=== PATIENT | female | born 1955 | race Caucasian/White ===

== ENCOUNTER 2017-07-14 20:30 | Inpatient (IN) | payer OTHER ==
[~2017-07-14] VITALS: Ht 162.6 cm; Wt 85.0 kg
[2017-07-14 21:30] VITALS: BP 132/70; PULSE 54; RESP 20; TEMP 98.4; O2SAT 91
[2017-07-14] MEDS ORDERED: NALOXONE HCL 0.4 MG/ML AMP IV PUSH PRN (22:15)
[2017-07-14] MEDS ORDERED: ACETAMINOPHEN 325 MG TAB PO PRN (22:15)
[2017-07-14] MEDS ORDERED: BISACODYL 10 MG SUPP RECTAL PRN (22:15)
[2017-07-14] MEDS ORDERED: SODIUM CHLORIDE 0.9% FLUSH 10 ML FLUSH IV FLUSH PRN (22:15)
[2017-07-14] MEDS ORDERED: ONDANSETRON HCL 4 MG/2 ML VIAL IVP PRN (22:15)
[2017-07-14] MEDS ORDERED: LACTULOSE SYRUP 20 GM/30 ML CUP PO PRN (22:15)
--- NOTE | 2017-07-14 23:39 | HHI.HP ---
HPI Service [facility] Hospitalists Primary Care Physician Unknown Admission Diagnosis newly discovered brain mass vs subacute hemorrhage . Diagnoses: Chief Complaint: confusion, right sided weakness, and slurred speech Travel History International Travel<30 Days: No Contact w/Intl Traveler <30 Da: No History of Present Illness Ms. Sun is a 61-year-old female who is brought to the emergency room at [facility] in [place] for increasing confusion, slurred speech, and right-sided weakness for four days. CT of the head was performed and showed a brain mass with midline shift of 6.8 mm with differential including subacute hemorrhage versus neoplastic process. The patient was accepted in transfer by Dr. Todd for neurosurgical evaluation here at [facility] in [place]. The patient is remains slightly confused at the time of my visit and states that she does not know why she is here at the hospital. She indicates that she' s been feeling fine and has no problems. She denies any fever, chills, nausea, vomiting, or cough. She indicates that she would prefer for her daughter to provide [place] interpretation for her in lieu of a professional interpretation service. Review of Systems Except as stated in HPI: all other systems reviewed are Neg Past Family Social History Past Medical History Hypothyroidism CVA with possible seizure activity at the time of the CVA - no seizures since and does not take AEDs Hypertension Osteoporosis Asthma Obstructive sleep apnea Bipolar disorder Non-Hodgkin's lymphoma GERD Hyperlipidemia Nephrolithiasis Thyroid nodules . Past Surgical History Cholecystectomy Temporary stent in kidney placed 04/2015, removed 12/2016 - due to obstructive lymphadenopathy Biopsy of pancreas, and liver . Reported Medications Reported Meds & Active Scripts Active Reported Proair Hfa 8.5 GM Inh (Albuterol Sulfate) 90 Mcg/Act Aer 2 Puff INH Q4-6H PRN 108 mcg/actuation Proair Hfa (Albuterol Sulfate) 90 Mcg Hfa.aer.ad Omeprazole 20 Mg Tab 20 Mg PO DAILY Quetiapine (Quetiapine Fumarate) 25 Mg Tab 25 Mg PO HS Centrum (Multiple Vitamins W/ Minerals) 1 Chew 1 Tab CHEW DAILY Levothyroxine (Levothyroxine Sodium) 150 Mcg Tab 150 Mcg PO DAILY Folic Acid 0.4 Mg Tab 1 Mg PO HS Ferrous Sulfate ER (Ferrous Sulfate) 140 Mg (45 Mg Iron) Tab 65 Mg PO DAILY Celexa (Citalopram Hydrobromide) 20 Mg Tab 20 Mg PO DAILY Atorvastatin (Atorvastatin Calcium) 40 Mg Tab 40 Mg PO HS Allopurinol 100 Mg Tab 100 Mg PO BID Acyclovir 400 Mg Tab 400 Mg PO THURSDAY, , THURSDAY Tylenol (Acetaminophen) 325 Mg Tab 500 Mg PO Q4H . Allergies: Uncoded Allergies: cotton (Allergy, Mild, Itching, 07/14/17) Family History Mother with Parkinson's and kidney failure Father with COPD Additional family history includes: hypertension, lung disease, hyperlipidemia, arthritis, and thyroid disease . Social History Tobacco: Smoked from 1966 - 1999 PPD Alcohol: Occasional social use, none in past 2 months Illicit Drugs: none . Physical Exam Vital Signs Vital Signs Date Time Temp Pulse Resp B/P (MAP) Pulse Ox O2 Delivery O2 Flow Rate FiO2 07/14/17 21:30 98.4 54 20 132/70 (90) 91 Physical Exam CONSTITUTIONAL: This is an overweight older female patient, in no apparent distress. INTEGUMENTARY: No rashes, ecchymoses or lesions. Cool and dry. HEAD: Atraumatic. Normocephalic. EYES: No scleral icterus. No injection or drainage. ENT: Nose without bleeding, purulent drainage. NECK: Trachea midline. No JVD or lymphadenopathy. CARDIOVASCULAR: Regular rate and rhythm without murmurs, gallops, or rubs. RESPIRATORY: Clear to auscultation. Breath sounds equal bilaterally. No wheezes , rales, or rhonchi. GASTROINTESTINAL: Abdomen soft, non-tender, nondistended. No guarding. MUSCULOSKELETAL: Extremities without clubbing, cyanosis, or edema. No calf tenderness. NEUROLOGICAL: Awake and alert. Sensory grossly within normal limits. Normal speech. Minimal right oral droop. Mild confusion noted. Strength 5/5 in all extremities. . Laboratory WBC 7.2, RBC 3.91, hemoglobin 12.3, hematocrit 37.0, platelet count 287. Sodium 143, potassium 4.0, chloride 103, BUN 22, creatinine 0.84, estimated GFR 73.97. Glucose 104, calcium 10.0, AST 14, ALT 12, alkaline phosphatase [address] brain without contrast: Moderately increased attenuation with expansion of the left basal ganglia causing mass-effect and midline shift of 6.8 mm. Subacute hemorrhage versus neoplastic process. . Caprini VTE Risk Assessment Caprini VTE Risk Assessment: Mod/High Risk (score >= 2) Caprini Risk Assessment Model Point Value = 1 Point Value = 2 Point Value = 3 Point Value = 5 Age 41-60 Minor surgery BMI > 25 kg/m2 Swollen legs Varicose veins or History of unexplained or recurrent spontaneous Oral contraceptives or hormone replacement Sepsis (< 1 month) Serious lung disease, including pneumonia (< 1 month) Abnormal pulmonary function Acute myocardial infarction Congestive heart failure (< 1 month) History of inflammatory bowel disease Medical patient at bed rest Age 61-74 Arthroscopic surgery Major open surgery (> 45 min) Laparoscopic surgery (> 45 min) Malignancy Confined to bed (> 72 hours) Immobilizing plaster cast Central venous access Age >= 75 History of VTE Family history of VTE Factor V Leiden Prothrombin [id number] Lupus anticoagulant Anticardiolipin antibodies Elevated serum homocysteine Heparin-induced thrombocytopenia Other congenital or acquired thrombophilia Stroke (< 1 month) Elective arthroplasty Hip, pelvis, or leg fracture Acute spinal cord injury (< 1 month) Prophylaxis Regimen Total Risk Factor Score Risk Level Prophylaxis Regimen 0-1 Low Early ambulation 2 Moderate Order ONE of the following: *Sequential Compression Device (SCD) *Heparin 5000 units SQ BID 3-4 Higher Order ONE of the following medications: *Heparin 5000 units SQ TID *Enoxaparin/Lovenox 40 mg SQ daily (WT < 150 kg, CrCl > 30 mL/min) *Enoxaparin/Lovenox 30 mg SQ daily (WT < 150 kg, CrCl > 10-29 mL/min) *Enoxaparin/Lovenox 30 mg SQ BID (WT < 150 kg, CrCl > 30 mL/min) AND/OR *Sequential Compression Device (SCD) 5 or more Highest Order ONE of the following medications: *Heparin 5000 units SQ TID (Preferred with Epidurals) *Enoxaparin/Lovenox 40 mg SQ daily (WT < 150 kg, CrCl > 30 mL/min) *Enoxaparin/Lovenox 30 mg SQ daily (WT < 150 kg, CrCl > 10-29 mL/min) *Enoxaparin/Lovenox 30 mg SQ BID (WT < 150 kg, CrCl > 30 mL/min) AND *Sequential Compression Device (SCD) Assessment and Plan Assessment and Plan Ms. Sun is a 61-year-old female who is brought to the emergency room at [facility] in [place] for increasing confusion, slurred speech, and right-sided weakness. CT of the head was performed and showed a brain mass with midline shift of 6.8 mm with differential including subacute hemorrhage versus neoplastic process. The patient was accepted in transfer by Dr. Todd for neurosurgical evaluation here at [facility] in [place]. Suspected brain mass vs subacute hemorrhage - consult neurosurgery - seizure precautions - Neurochecks q4h - Dexamethasone 4 mg IV q6h - NPO Isolated seizure following CVA in - not on antiepileptic medications - Seizure precautions - Ativan IV PRN seizure activity Asthma - Albuterol nebulizer q4h PRN SOB/Wheezing Hypothyroidism/Gout/Bipolar Disorder/GERD - Resume home medications and monitor DVT prophylaxis - SCDs/TEDs Discussed Condition With Dr. Russell . Physician Certification 2 Midnight Certification Type: Admission for Inpatient Services Order for Inpatient Services The services are ordered in accordance with Medicare regulations or non- Medicare payer requirements, as applicable. In the case of services not specified as inpatient-only, they are appropriately provided as inpatient services in accordance with the 2-midnight benchmark. Estimated LOS (days): 5 days is the estimated time the patient will need to remain in the hospital, assuming treatment plan goals are met and no additional complications. Post-Hospital Plan: Not yet determined Enedina Powell Jul 14, 2017 23:39
[2017-07-14] MEDS: RESP: ALBUTEROL 2.5 MG/3 ML NEB (PRN) NEB (23:41)
[2017-07-14] MEDS ORDERED: ACYC400T PO (23:51)
[2017-07-14] MEDS ORDERED: TYLE325T PO (23:51)
[2017-07-14] MEDS ORDERED: ALLO100T PO (23:52)
[2017-07-14] MEDS ORDERED: CELE20TA PO (23:53)
[2017-07-14] MEDS ORDERED: ATOR40TA16 PO (23:53)
[2017-07-14] MEDS ORDERED: FERR140T PO (23:54)
[2017-07-14] MEDS ORDERED: LEVO150T7 PO (23:56)
[2017-07-14] MEDS ORDERED: FOLI400T PO (23:56)
[2017-07-14] MEDS ORDERED: QUET1TAB7 PO (23:59)
[2017-07-14] MEDS ORDERED: CENTCHW4 CHEW (23:59)
[2017-07-15] VITALS (7 sets, daily range): BP systolic 106–129; BP diastolic 60–69; PULSE 55–77; RESP 20; TEMP 97.3–98.2; O2SAT 92–95
[2017-07-15] MEDS ORDERED: OMEP20TA93 PO
[2017-07-15] MEDS ORDERED: ALBUAER3 (00:01)
[2017-07-15] MEDS: DEXAMETHASONE SOD PHOS 4 MG/ML VIAL IV PUSH SCH ×4 (01:25→17:04)
[2017-07-15] MEDS ORDERED: ALBUAER3 INH (01:28)
[2017-07-15] MEDS ORDERED: LORazepam 2 MG/ML VIAL IV PUSH PRN (01:45)
[2017-07-15] MEDS: LEVOTHYROXINE SODIUM 150 MCG TAB PO SCH (05:41)
[2017-07-15 07:33] LABS: AUTOMATED NEUTROPHIL # 4.9 TH/MM3 (1.8-7.7); BASOPHIL % 0.3 % (0.0-2.0); HEMATOCRIT 37.9 % (35.0-46.0); HEMOGLOBIN 12.6 GM/DL (11.6-15.3); MEAN CELL VOLUME 92.9 FL (80.0-100.0); MEAN CORPUSCULAR HGB CONC 33.4 % (32.0-36.0); MEAN PLATELET VOLUME 7.7 FL (7.0-11.0); MONO % 1.7 % (0.0-8.0); MONOCYTE # 0.1 TH/MM3 (0-0.9); PLATELET COUNT 310 TH/MM3 (150-450); RED BLOOD COUNT 4.08 MIL/MM3 (4.00-5.30); RED CELL DISTRIBUTION WIDTH 13.4 % (11.6-17.2)
[2017-07-15] MEDS: SODIUM CHLORIDE 0.9% FLUSH 10 ML FLUSH IV FLUSH SCH ×2 (07:45→21:07)
[2017-07-15 07:54] LABS: ALBUMIN 3.9 GM/DL (3.4-5.0); ALT (GPT) 22 U/L (10-53); AST (GOT) 15 U/L (15-37); BICARBONATE 24.8 MEQ/L (21.0-32.0); BLOOD UREA NITROGEN 17 MG/DL (7-18); CALCIUM 9.8 MG/DL (8.5-10.1); CHLORIDE 110 MEQ/L (98-107); CREATININE 0.74 MG/DL (0.50-1.00); GLOMERULAR FILTRATION RATE 79 ML/MIN (>89); GLUCOSE,RANDOM 121 MG/DL (74-106); SODIUM (NA) 143 MEQ/L (136-145)
[2017-07-15 08:02] LABS: ALKALINE PHOSPHATASE 77 U/L (45-117); TOTAL BILIRUBIN ADULT 0.4 MG/DL (0.2-1.0); TOTAL PROTEIN 8.2 GM/DL (6.4-8.2)
[2017-07-15] MEDS: DOCUSATE SODIUM 50 MG/SENNA 8.6 MG TAB PO SCH ×2 (08:13→21:07)
[2017-07-15] MEDS: ALLOPURINOL 100 MG TAB PO SCH ×2 (08:13→21:06)
[2017-07-15] MEDS: CITALOPRAM HYDROBROMIDE 20 MG TAB PO SCH (08:13)
[2017-07-15] MEDS: FERROUS SULFATE 325 MG (65 MG ELEMENTAL IRON) TAB PO SCH (08:14)
[2017-07-15] MEDS: PANTOPRAZOLE SOD 20 MG DELAYED RELEASE TAB PO SCH (08:14)
--- NOTE | 2017-07-15 09:40 | PD.CONS ---
HPI Consult Requested By Primary Care Physician Unknown History of Present Illness Ms. Sun is a 61-year-old female who is brought to the emergency room at [facility] for increasing confusion, slurred speech, and right-sided weakness for four days. CT of the head showed a brain mass with midline shift of 6.8 mm with differential including subacute hemorrhage versus neoplastic process. The patient was accepted in transfer by Dr. Todd for neurosurgical evaluation. No seizure activity reported. No tonic-clonic movements. No tongue biting. No incontinence of stool or urine. She remains slightly confused and does not know why she is here at the hospital. She indicates that she's been feeling fine. She denies any fever, chills, nausea, vomiting, or cough. She moves both upper and lower extremities without any focal weakness. She denies any sensory loss. She denies any headaches nausea vomiting. Denies any incontinence or stool or urine. Neurosurgical consultation was requested Hypothyroidism CVA with possible seizure activity at the time of the CVA - no seizures since and does not take AEDs Hypertension Osteoporosis Asthma Obstructive sleep apnea Bipolar disorder Non-Hodgkin's lymphoma GERD Hyperlipidemia Nephrolithiasis Thyroid nodules . Past Surgical History Cholecystectomy Temporary stent in kidney placed 04/2015, removed 12/2016 - due to obstructive lymphadenopathy Biopsy of pancreas, and liver . Reported Medications Reported Meds & Active Scripts Active Reported Proair Hfa 8.5 GM Inh (Albuterol Sulfate) 90 Mcg/Act Aer 2 Puff INH Q4-6H PRN 108 mcg/actuation Proair Hfa (Albuterol Sulfate) 90 Mcg Hfa.aer.ad Omeprazole 20 Mg Tab 20 Mg PO DAILY Quetiapine (Quetiapine Fumarate) 25 Mg Tab 25 Mg PO HS Centrum (Multiple Vitamins W/ Minerals) 1 Chew 1 Tab CHEW DAILY Levothyroxine (Levothyroxine Sodium) 150 Mcg Tab 150 Mcg PO DAILY Folic Acid 0.4 Mg Tab 1 Mg PO HS Ferrous Sulfate ER (Ferrous Sulfate) 140 Mg (45 Mg Iron) Tab 65 Mg PO DAILY Celexa (Citalopram Hydrobromide) 20 Mg Tab 20 Mg PO DAILY Atorvastatin (Atorvastatin Calcium) 40 Mg Tab 40 Mg PO HS Allopurinol 100 Mg Tab 100 Mg PO BID Acyclovir 400 Mg Tab 400 Mg PO THURSDAY, , THURSDAY Tylenol (Acetaminophen) 325 Mg Tab 500 Mg PO Q4H . Allergies: Uncoded Allergies: cotton (Allergy, Mild, Itching, 07/14/17) Family History Mother with Parkinson's and kidney failure Father with COPD Additional family history includes: hypertension, lung disease, hyperlipidemia, arthritis, and thyroid disease . Social History Tobacco: Smoked from 1966 - 1999 PPD Alcohol: Occasional social use, none in past 2 months Illicit Drugs: none . Physical Exam Vital Signs Vital Signs Date Time Temp Pulse Resp B/P (MAP) Pulse Ox O2 Delivery O2 Flow Rate FiO2 07/14/17 21:30 98.4 54 20 132/70 (90) 91 Physical Exam CONSTITUTIONAL: This is an overweight older female patient, in no apparent distress. INTEGUMENTARY: No rashes, ecchymoses or lesions. Cool and dry. HEAD: Atraumatic. Normocephalic. EYES: No scleral icterus. No injection or drainage. ENT: Nose without bleeding, purulent drainage. NECK: Trachea midline. No JVD or lymphadenopathy. CARDIOVASCULAR: Regular rate and rhythm without murmurs, gallops, or rubs. RESPIRATORY: Clear to auscultation. Breath sounds equal bilaterally. No wheezes , rales, or rhonchi. GASTROINTESTINAL: Abdomen soft, non-tender, nondistended. No guarding. MUSCULOSKELETAL: Extremities without clubbing, cyanosis, or edema. No calf tenderness. NEUROLOGICAL: Awake and alert. Sensory grossly within normal limits. Normal speech. Minimal right oral droop. Mild confusion noted. Strength 5/5 in all extremities. . Laboratory WBC 7.2, RBC 3.91, hemoglobin 12.3, hematocrit 37.0, platelet count 287. Sodium 143, potassium 4.0, chloride 103, BUN 22, creatinine 0.84, estimated GFR 73.97. Glucose 104, calcium 10.0, AST 14, ALT 12, alkaline phosphatase [address] brain without contrast: Moderately increased attenuation with expansion of the left basal ganglia causing mass-effect and midline shift of 6.8 mm. Subacute hemorrhage versus neoplastic process. . Caprini VTE Risk Assessment Caprini VTE Risk Assessment: Mod/High Risk (score >= 2) Caprini Risk Assessment Model Point Value = 1 Point Value = 2 Point Value = 3 Point Value = 5 Age 41-60 Minor surgery BMI > 25 kg/m2 Swollen legs Varicose veins or History of unexplained or recurrent spontaneous Oral contraceptives or hormone replacement Sepsis (< 1 month) Serious lung disease, including pneumonia (< 1 month) Abnormal pulmonary function Acute myocardial infarction Congestive heart failure (< 1 month) History of inflammatory bowel disease Medical patient at bed rest Age 61-74 Arthroscopic surgery Major open surgery (> 45 min) Laparoscopic surgery (> 45 min) Malignancy Confined to bed (> 72 hours) Immobilizing plaster cast Central venous access Age >= 75 History of VTE Family history of VTE Factor V Leiden Prothrombin [id number] Lupus anticoagulant Anticardiolipin antibodies Elevated serum homocysteine Heparin-induced thrombocytopenia Other congenital or acquired thrombophilia Stroke (< 1 month) Elective arthroplasty Hip, pelvis, or leg fracture Acute spinal cord injury (< 1 month) Prophylaxis Regimen Total Risk Factor Score Risk Level Prophylaxis Regimen 0-1 Low Early ambulation 2 Moderate Order ONE of the following: *Sequential Compression Device (SCD) *Heparin 5000 units SQ BID 3-4 Higher Order ONE of the following medications: *Heparin 5000 units SQ TID *Enoxaparin/Lovenox 40 mg SQ daily (WT < 150 kg, CrCl > 30 mL/min) *Enoxaparin/Lovenox 30 mg SQ daily (WT < 150 kg, CrCl > 10-29 mL/min) *Enoxaparin/Lovenox 30 mg SQ BID (WT < 150 kg, CrCl > 30 mL/min) AND/OR *Sequential Compression Device (SCD) 5 or more Highest Order ONE of the following medications: *Heparin 5000 units SQ TID (Preferred with Epidurals) *Enoxaparin/Lovenox 40 mg SQ daily (WT < 150 kg, CrCl > 30 mL/min) *Enoxaparin/Lovenox 30 mg SQ daily (WT < 150 kg, CrCl > 10-29 mL/min) *Enoxaparin/Lovenox 30 mg SQ BID (WT < 150 kg, CrCl > 30 mL/min) AND *Sequential Compression Device (SCD) Assessment and Plan Assessment and Plan Ms. Sun is a 61-year-old female who is brought to the emergency room at [facility] in [place] for increasing confusion, slurred speech, and right-sided weakness. CT of the head was performed and showed a brain mass with midline shift of 6.8 mm with differential including subacute hemorrhage versus neoplastic process. The patient was accepted in transfer by Dr. Todd for neurosurgical evaluation here at [facility] in [place]. Suspected brain mass vs subacute hemorrhage - consult neurosurgery - seizure precautions - Neurochecks q4h - Dexamethasone 4 mg IV q6h - NPO Isolated seizure following CVA in - not on antiepileptic medications - Seizure precautions - Ativan IV PRN seizure activity Asthma - Albuterol nebulizer q4h PRN SOB/Wheezing Hypothyroidism/Gout/Bipolar Disorder/GERD - Resume home medications and monitor Past Family Social History Allergies: Uncoded Allergies: cotton (Allergy, Mild, Itching, 07/14/17) Past Medical History Ms. Snu is a 61-year-old female who is brought to the emergency room at [facility] in [place] for increasing confusion, slurred speech, and right-sided weakness for four days. CT of the head was performed and showed a brain mass with midline shift of 6.8 mm with differential including subacute hemorrhage versus neoplastic process. The patient was accepted in transfer by Dr. Todd for neurosurgical evaluation here at [facility] in [place]. The patient is remains slightly confused at the time of my visit and states that she does not know why she is here at the hospital. She indicates that she' s been feeling fine and has no problems. She denies any fever, chills, nausea, vomiting, or cough. She indicates that she would prefer for her daughter to provide [place] interpretation for her in lieu of a professional interpretation service. Hypothyroidism CVA with possible seizure activity at the time of the CVA - no seizures since and does not take AEDs Hypertension Osteoporosis Asthma Obstructive sleep apnea Bipolar disorder Non-Hodgkin's lymphoma GERD Hyperlipidemia Nephrolithiasis Thyroid nodules . Past Surgical History Cholecystectomy Temporary stent in kidney placed 04/2015, removed 12/2016 - due to obstructive lymphadenopathy Biopsy of pancreas, and liver . Reported Medications Proair Hfa 8.5 GM Inh (Albuterol Sulfate) 90 Mcg/Act Aer 2 Puff INH Q4-6H PRN 108 mcg/actuation Proair Hfa (Albuterol Sulfate) 90 Mcg Hfa.aer.ad Omeprazole 20 Mg Tab 20 Mg PO DAILY Quetiapine (Quetiapine Fumarate) 25 Mg Tab 25 Mg PO HS Centrum (Multiple Vitamins W/ Minerals) 1 Chew 1 Tab CHEW DAILY Levothyroxine (Levothyroxine Sodium) 150 Mcg Tab 150 Mcg PO DAILY Folic Acid 0.4 Mg Tab 1 Mg PO HS Ferrous Sulfate ER (Ferrous Sulfate) 140 Mg (45 Mg Iron) Tab 65 Mg PO DAILY Celexa (Citalopram Hydrobromide) 20 Mg Tab 20 Mg PO DAILY Atorvastatin (Atorvastatin Calcium) 40 Mg Tab 40 Mg PO HS Allopurinol 100 Mg Tab 100 Mg PO BID Acyclovir 400 Mg Tab 400 Mg PO THURSDAY, , THURSDAY Tylenol (Acetaminophen) 325 Mg Tab 500 Mg PO Q4H . Active Ordered Medications Current Medications Sodium Chloride (NS Flush) 2 ml UNSCH PRN IV FLUSH FLUSH AFTER USING IV ACCESS ; Start 07/14/17 at 22:15 Sodium Chloride (NS Flush) 2 ml BID IV FLUSH Last administered on 07/15/17at 07: 45; Start 07/15/17 at 09:00 Acetaminophen (Tylenol) 650 mg Q4H PRN PO TEMP > 100.4/pain; Start 07/14/17 at 22:15 Ondansetron HCl (Zofran Inj) 4 mg Q6H PRN IVP NAUSEA OR VOMITING; Start at 22:15 Naloxone HCl (Narcan Inj) 0.4 mg UNSCH PRN IV PUSH SEE LABEL COMMENTS; Start at 22:15 Senna/Docusate Sodium (Maddy-Colace) 1 tab BID PO Last administered on at 08:13; Start 07/15/17 at 09:00 Magnesium Hydroxide (Milk Of Magnesia Liq) 30 ml Q12H PRN PO Mild constipation ; Start 07/14/17 at 22:15 Sennosides (Senokot) 17.2 mg Q12H PRN PO Moderate constipation; Start 07/14/17 at 22:15 Bisacodyl (Dulcolax Supp) 10 mg DAILY PRN RECTAL SEVERE CONSITIPATION/ IF NPO ; Start 07/14/17 at 22:15 Lactulose (Lactulose Liq) 30 ml DAILY PRN PO SEVERE CONSITIPATION/ IF PO; Start 07/14/17 at 22:15 Albuterol Sulfate (Albuterol Neb) 2.5 mg Q4HR NEB PRN NEB sob/wheezing Last administered on 07/14/17at 23:41; Start 07/14/17 at 22:30 Dexamethasone Sodium Phosphate (Decadron Inj) 4 mg Q6HR IV PUSH Last administered on 07/15/17at 05:41; Start 07/15/17 at 00:45 Allopurinol (Zyloprim) 100 mg BID PO Last administered on 07/15/17at 08:13; Start 07/15/17 at 09:00 Atorvastatin Calcium (Lipitor) 40 mg HS PO ; Start 07/15/17 at 21:00 Citalopram Hydrobromide (CeleXA) 20 mg DAILY PO Last administered on 07/15/17at 08:13; Start 07/15/17 at 09:00 Levothyroxine Sodium (Synthroid) 150 mcg DAILY@0700 PO Last administered on at 05:41; Start 07/15/17 at 07:00 Quetiapine Fumarate (SEROquel) 25 mg HS PO ; Start 07/15/17 at 21:00 Ferrous Sulfate (Ferrous Sulfate) 65 mg DAILY PO Last administered on at 08:14; Start 07/15/17 at 09:00 Pantoprazole Sodium (Protonix) 20 mg DAILY PO Last administered on 07/15/17at 08 :14; Start 07/15/17 at 09:00 Lorazepam (Ativan Inj) 2 mg Q10M PRN IV PUSH SEE LABEL COMMENTS; Start at 01:45 Family History Her family history was reviewed. Mother with Parkinson's and kidney failure Father with COPD Additional family history includes: hypertension, lung disease, hyperlipidemia, arthritis, and thyroid disease . . Social History Tobacco: Smoked from 1966 - 1999 - PPD Alcohol: Occasional social use, none in past 2 months Illicit Drugs: none Physical Exam Vital Signs Vital Signs Date Time Temp Pulse Resp B/P (MAP) Pulse Ox O2 Delivery O2 Flow Rate FiO2 07/15/17 04:00 98.1 56 20 121/69 (86) 92 07/15/17 04:00 68 07/15/17 03:17 Nasal Cannula 4.00 07/15/17 00:00 98.2 77 20 129/60 (83) 93 4/17/18 21:30 98.4 54 20 132/70 (90) 91 Physical Exam CONSTITUTIONAL: This is an overweight older female patient, in no apparent distress. INTEGUMENTARY: No rashes, ecchymoses or lesions. Cool and dry. HEAD: Atraumatic. Normocephalic. EYES: No scleral icterus. No injection or drainage. ENT: Nose without bleeding, purulent drainage. NECK: Trachea midline. No JVD or lymphadenopathy. CARDIOVASCULAR: Regular rate and rhythm without murmurs, gallops, or rubs. RESPIRATORY: Clear to auscultation. Breath sounds equal bilaterally. No wheezes , rales, or rhonchi. GASTROINTESTINAL: Abdomen soft, non-tender, nondistended. No guarding. MUSCULOSKELETAL: Extremities without clubbing, cyanosis, or edema. No calf tenderness. NEUROLOGICAL: She is alert, awake and oriented to time, place and person. Speech is fluent. Cranial nerve examination: pupils to be equal, round and reactive to light. Extra-ocular movements are intact. Facial motor and sensory function are normal and symmetrical. Gross hearing appears intact. Sternocleidomastoid and trapezius muscles are symmetrical. Other cranial nerves are intact. Neck is soft and supple with a good range of motion without pain. Muscle strength is normal in all muscle groups of left upper and lower extremities with right hemiparesis, 4/5. Sensory examination is intact to light touch and pin prick in both the upper and lower extremities. Deep tendon reflexes are symmetrical in both upper and lower extremities. There is a bilateral plantar flexion response. Cerebellar examination is unremarkable, without deficits. Laboratory Laboratory Tests Test 07/15/17 05:20 White Blood Count 6.0 Red Blood Count 4.08 Hemoglobin 12.6 Hematocrit 37.9 Mean Corpuscular Volume 92.9 Mean Corpuscular Hemoglobin 31.0 Mean Corpuscular Hemoglobin Concent 33.4 Red Cell Distribution Width 13.4 Platelet Count 310 Mean Platelet Volume 7.7 Neutrophils (%) (Auto) 81.0 Lymphocytes (%) (Auto) 17.0 Monocytes (%) (Auto) 1.7 Eosinophils (%) (Auto) 0.0 Basophils (%) (Auto) 0.3 Neutrophils # (Auto) 4.9 Lymphocytes # (Auto) 1.0 Monocytes # (Auto) 0.1 Eosinophils # (Auto) 0.0 Basophils # (Auto) 0.0 CBC Comment DIFF FINAL Differential Comment Blood Urea Nitrogen 17 Creatinine 0.74 Random Glucose 121 Total Protein 8.2 Albumin 3.9 Calcium Level 9.8 Alkaline Phosphatase 77 Aspartate Amino Transf (AST/SGOT) 15 Alanine Aminotransferase (ALT/SGPT) 22 Total Bilirubin 0.4 Sodium Level 143 Potassium Level 4.0 Chloride Level 110 Carbon Dioxide Level 24.8 Anion Gap 8 Estimat Glomerular Filtration Rate 79 Result Diagram: 07/15/1751907/15/17519 Attending Statement I reviewed her radiological studies from the outside institution CT brain without contrast: Moderately increased attenuation with expansion of the left basal ganglia causing mass-effect and midline shift of 6.8 mm. Subacute hemorrhage versus neoplastic process. . Her differential including subacute hemorrhage versus neoplastic process. Recommend MRI of the brain with and without contrast as soon as possible seizure precautions Neurochecks q4h Dexamethasone 4 mg IV q6h Isolated seizure following CVA in - not on antiepileptic medications - Seizure precautions - Ativan IV PRN. Watch for seizure activity Asthma. Albuterol nebulizer q4h PRN SOB/Wheezing Hypothyroidism/Gout. Resume home medications Bipolar Disorder. Resume home medications and monitor aggressive pulmonary toilette, nasotracheal suction, and breathing treatments with nebulizers. Nutrition. NPO Renal. monitor closely urine output, BUN and creatinine Endocrine. Monitor serial Acu checks and SSI as needed in detail ID monitor for signs of infection Protonix for stress ulcer prophylaxis Elmo hose and SCD's for DVT prophylaxis. Caprini VTE Risk Assessment Caprini VTE Risk Assessment: Mod/High Risk (score >= 2) Caprini Risk Assessment Model Point Value = 1 Point Value = 2 Point Value = 3 Point Value = 5 Age 41-60 Minor surgery BMI > 25 kg/m2 Swollen legs Varicose veins or History of unexplained or recurrent spontaneous Oral contraceptives or hormone replacement Sepsis (< 1 month) Serious lung disease, including pneumonia (< 1 month) Abnormal pulmonary function Acute myocardial infarction Congestive heart failure (< 1 month) History of inflammatory bowel disease Medical patient at bed rest Age 61-74 Arthroscopic surgery Major open surgery (> 45 min) Laparoscopic surgery (> 45 min) Malignancy Confined to bed (> 72 hours) Immobilizing plaster cast Central venous access Age >= 75 History of VTE Family history of VTE Factor V Leiden Prothrombin [id number] Lupus anticoagulant Anticardiolipin antibodies Elevated serum homocysteine Heparin-induced thrombocytopenia Other congenital or acquired thrombophilia Stroke (< 1 month) Elective arthroplasty Hip, pelvis, or leg fracture Acute spinal cord injury (< 1 month) Prophylaxis Regimen Total Risk Factor Score Risk Level Prophylaxis Regimen 0-1 Low Early ambulation 2 Moderate Order ONE of the following: *Sequential Compression Device (SCD) *Heparin 5000 units SQ BID 3-4 Higher Order ONE of the following medications: *Heparin 5000 units SQ TID *Enoxaparin/Lovenox 40 mg SQ daily (WT < 150 kg, CrCl > 30 mL/min) *Enoxaparin/Lovenox 30 mg SQ daily (WT < 150 kg, CrCl > 10-29 mL/min) *Enoxaparin/Lovenox 30 mg SQ BID (WT < 150 kg, CrCl > 30 mL/min) AND/OR *Sequential Compression Device (SCD) 5 or more Highest Order ONE of the following medications: *Heparin 5000 units SQ TID (Preferred with Epidurals) *Enoxaparin/Lovenox 40 mg SQ daily (WT < 150 kg, CrCl > 30 mL/min) *Enoxaparin/Lovenox 30 mg SQ daily (WT < 150 kg, CrCl > 10-29 mL/min) *Enoxaparin/Lovenox 30 mg SQ BID (WT < 150 kg, CrCl > 30 mL/min) AND *Sequential Compression Device (SCD) Isolated seizure following CVA in - not on antiepileptic medications - Seizure precautions - Ativan IV PRN seizure activity Asthma - Albuterol nebulizer q4h PRN SOB/Wheezing Hypothyroidism/Gout/Bipolar Disorder/GERD - Resume home medications and monitor Miguel Sutton MD Jul 15, 2017 09:40
--- NOTE | 2017-07-15 15:06 | HHI.PR ---
Subjective Remarks Patient's Turkish is limited but she agreed to have her daughter translate. Daughter reports that her speech is slightly more fluent. Right sided weakness improved. Objective Vitals Vital Signs Date Time Temp Pulse Resp B/P (MAP) Pulse Ox O2 Delivery O2 Flow Rate FiO2 07/15/17 08:45 92 Nasal Cannula 2.00 07/15/17 08:16 97.4 55 20 106/65 (79) 93 07/15/17 04:00 98.1 56 20 121/69 (86) 92 07/15/17 04:00 68 07/15/17 03:17 Nasal Cannula 4.00 07/15/17 00:00 98.2 77 20 129/60 (83) 93 07/14/17 21:30 98.4 54 20 132/70 (90) 91 I/O 07/14/17 07/14/17 07/14/17 07/15/17 07/15/17 07/15/17 07:00 15:00 23:00 07:00 15:00 23:00 Intake Total 220 ml Balance 220 ml Intake Oral 220 ml # Voids 2 # Bowel Movements 0 Result Diagram: 07/15/1720 07/15/17 0520 Objective Remarks GENERAL: No acute distress. Obese female. EYES: Pupils equal and round. No scleral icterus. No injection or drainage. ENT: No nasal bleeding or discharge. Mucous membranes pink and moist. NECK: Trachea midline. No JVD. CARDIOVASCULAR: Regular rate and rhythm. RESPIRATORY: No accessory muscle use. Clear to auscultation. Breath sounds equal bilaterally. GASTROINTESTINAL: Abdomen soft, non-tender, nondistended. Hepatic and splenic margins not palpable. MUSCULOSKELETAL: Extremities without clubbing, cyanosis, or edema. No obvious deformities. NEUROLOGICAL: Awake and alert. No obvious cranial nerve deficits. Motor grossly within normal limits. Strength 4/5 on the right upper and lower extremity. Left side is 5/5 PSYCHIATRIC: Appropriate mood and affect; insight and judgment normal. A/P Assessment and Plan 61-year-old female with a history of Lymphoma who is brought to the emergency room at [facility] in [place] for increasing confusion, slurred speech, and right-sided weakness. CT of the head was performed and showed a brain mass with midline shift of 6.8 mm with differential including subacute hemorrhage versus neoplastic process. The patient was accepted in transfer by Dr. Barth for neurosurgical evaluation here at [facility] in [place]. Suspected brain mass vs subacute hemorrhage - Neurosurgery following and recommend MRI of the brain. this is pending. - seizure precautions - Neurochecks q4h - Dexamethasone 4 mg IV q6h - Slight improvement in weakness and speech since arrival. Isolated seizure following CVA in - not on antiepileptic medications - Seizure precautions - Ativan IV PRN seizure activity History of Lymphoma, stage 4 per daughter: - Patient reportedly completed chemo last year in January and follows regularly with oncologist in [place]. Asthma - Albuterol nebulizer q4h PRN SOB/Wheezing Hypothyroidism/Gout/Bipolar Disorder/GERD - Resume home medications and monitor DVT prophylaxis - SCDs/Akhil Pineda MD Jul 15, 2017 15:05
[2017-07-15] MEDS ORDERED: GADODIAMIDE PF 287 MG/ML 20 ML VIAL (for RAD MRI) IVCONTRAST ONE (15:30)
--- NOTE | 2017-07-15 16:33 | RADRPT ---
EXAM DATE/TIME: 07/15/2017 15:42 [facility] COMPARISON: No previous studies available for comparison. INDICATIONS : Mass. CONTRAST: 20 cc Omniscan (gadodiamide) IV MEDICAL HISTORY : Non Hodgkins Lymphoma- Type B SURGICAL HISTORY : Urethral Kidney Stent, Thyroid Bx, Spinal [place] Bx, [employer] Inj Port ENCOUNTER: Initial ACUITY: 1 day PAIN SCORE: 0/10 LOCATION: Brain TECHNIQUE: Multiplanar, multisequence MRI of the brain was performed both prior to and following the administrat ion of paramagnetic contrast. FINDINGS: There is an intensely enhancing minimally less than 3 cm mass in the left basal ganglia. There is mod erate surrounding vasogenic edema. There is significant compression of the lateral lateral ventricle and mild effacement of hemispheric sulci and sylvian fissure. Minimal midline shift associated. There is some serpiginous enhancement of the parafalcine right frontal cortex and subcortical tissues. The re is no evidence of macroscopic hemorrhage. There is nothing to suggest acute infarction. The extrac ranial structures are grossly benign and intact. CONCLUSION: Left basal ganglia mass with moderate associated vasogenic edema. Mild-moderate hemispheric mass effe ct. Serpiginous enhancement in the contralateral right mid to high convexity frontal region. Israel Ruelas MD on July 15, 2017 at 16:27 Board Certified Radiologist. This report was verified electronically.
[2017-07-15] MEDS: ATORVASTATIN 40 MG TAB PO SCH (21:06)
[2017-07-15] MEDS: QUEtiapine FUMARATE 25 MG TAB PO SCH (21:07)
[2017-07-16] VITALS (13 sets, daily range): BP systolic 85–164; BP diastolic 52–96; PULSE 40–56; RESP 16–20; TEMP 97.3–98; O2SAT 94–100
[2017-07-16] MEDS: LEVOTHYROXINE SODIUM 150 MCG TAB PO SCH (05:15)
[2017-07-16] MEDS: DEXAMETHASONE SOD PHOS 4 MG/ML VIAL IV PUSH SCH ×4 (05:15→18:00)
[2017-07-16] MEDS: DOCUSATE SODIUM 50 MG/SENNA 8.6 MG TAB PO SCH ×2 (09:08→20:38)
[2017-07-16] MEDS: FERROUS SULFATE 325 MG (65 MG ELEMENTAL IRON) TAB PO SCH (09:08)
[2017-07-16] MEDS: ALLOPURINOL 100 MG TAB PO SCH ×2 (09:08→21:03)
[2017-07-16] MEDS: SODIUM CHLORIDE 0.9% FLUSH 10 ML FLUSH IV FLUSH SCH (09:09)
[2017-07-16] MEDS: CITALOPRAM HYDROBROMIDE 20 MG TAB PO SCH (09:09)
[2017-07-16] MEDS: PANTOPRAZOLE SOD 20 MG DELAYED RELEASE TAB PO SCH (09:09)
[2017-07-16 09:25] LABS: HEMATOCRIT 35.2 % (35.0-46.0); HEMOGLOBIN 11.7 GM/DL (11.6-15.3); MEAN CELL VOLUME 93.8 FL (80.0-100.0); MEAN CORPUSCULAR HEMOGLOBIN 31.2 PG (27.0-34.0); MEAN CORPUSCULAR HGB CONC 33.3 % (32.0-36.0); PLATELET COUNT 316 TH/MM3 (150-450); RED BLOOD COUNT 3.76 MIL/MM3 (4.00-5.30); RED CELL DISTRIBUTION WIDTH 13.1 % (11.6-17.2); WHITE BLOOD COUNT 11.1 TH/MM3 (4.0-11.0)
[2017-07-16 09:55] LABS: BICARBONATE 26.3 MEQ/L (21.0-32.0); CALCIUM 9.6 MG/DL (8.5-10.1); CREATININE 0.79 MG/DL (0.50-1.00)
[2017-07-16] MEDS ORDERED: ETOMIDATE 40 MG/20 ML VIAL ONE (13:09)
[2017-07-16] MEDS ORDERED: ROCURONIUM INJ 50 MG/5 ML VIAL ONE (13:09)
--- NOTE | 2017-07-16 13:09 | HHI.PR ---
Subjective Remarks Earl called on the patient. She became unresponsive. On my evaluation the patient has a GCS of 1. Objective Vitals Vital Signs Date Time Temp Pulse Resp B/P (MAP) Pulse Ox O2 Delivery O2 Flow Rate FiO2 07/16/17 11:23 97.6 50 17 119/63 (81) 94 07/16/17 07:00 97.3 47 16 108/72 (84) 96 07/16/17 04:00 97.8 47 18 131/63 (85) 95 07/16/17 04:00 Nasal Cannula 4.00 07/16/17 00:00 Nasal Cannula 4.00 07/16/17 00:00 98.0 56 20 114/66 (82) 95 07/15/17 21:53 97.3 55 20 119/60 (79) 94 07/15/17 20:00 Nasal Cannula 4.00 07/15/17 16:16 97.3 60 20 110/66 (81) 95 I/O 07/15/17 07/15/17 07/15/17 07/16/17 07/16/17 07/16/17 07:00 15:00 23:00 07:00 15:00 23:00 Intake Total 220 ml 320 ml 0 ml Output Total 0 ml Balance 220 ml 320 ml 0 ml Intake Oral 220 ml 320 ml 0 ml Output Urine Total 0 ml # Voids 2 4 # Bowel Movements 0 1 0 Result Diagram: 07/16/17 0735 07/16/17 0735 Objective Remarks GENERAL:Non responsive GCS of 1 CARDIOVASCULAR: Regular rate and rhythm. RESPIRATORY: Upper airway sound. Clear anteriorly. NEUROLOGICAL: Unresponsive, GCS of 1 A/P Assessment and Plan 61-year-old female with a history of Lymphoma who is brought to the emergency room at [facility] in [place] for increasing confusion, slurred speech, and right-sided weakness. CT of the head was performed and showed a brain mass with midline shift of 6.8 mm with differential including subacute hemorrhage versus neoplastic process. The patient was accepted in transfer by Dr. Barth for neurosurgical evaluation here at [facility] in [place]. 07/16: Patient became unresponsive, GCS score 1. Stat ABG. Stat called to intensive, I discussed with Dr. Barker. The patient was immediately transferred to ICU with anticipation of needing intubation. Neurosurgery is aware. Suspected brain mass vs subacute hemorrhage - Brain MRI showed Left basal ganglia mass with moderate associated vasogenic edema. Mild-moderate hemispheric mass effect. Serpiginous enhancement in the contralateral right mid to high convexity frontal region. - seizure precautions - Neurochecks q4h - Dexamethasone 4 mg IV q6h Isolated seizure following CVA in - not on antiepileptic medications - Seizure precautions - Ativan IV PRN seizure activity History of Lymphoma, stage 4 per daughter: - Patient reportedly completed chemo last year in January and follows regularly with oncologist in [place]. Asthma - Albuterol nebulizer q4h PRN SOB/Wheezing Hypothyroidism/Gout/Bipolar Disorder/GERD - Resume home medications and monitor DVT prophylaxis - SCDs/TEDs Discharge Planning Stat transfer to ICU. Akhil Calderón MD Jul 16, 2017 13:09
[2017-07-16] MEDS ORDERED: MANNITOL INJ 100 ML ONE (13:15)
[2017-07-16] MEDS ORDERED: PROPOFOL 500 MG/50 ML INJ 50 ML ONE (13:23)
[2017-07-16] MEDS: SODIUM CHLOR 0.9% 1000 ML INJ 1,000 ML IV SCH (13:28)
[2017-07-16] MEDS ORDERED: RESP: ALBUTEROL 2.5 MG/IPRATROPIUM 0.5 MG NEB (PRN) INH (13:30)
[2017-07-16] MEDS ORDERED: NURSING INFORMATION XX SCH (13:30)
[2017-07-16] MEDS ORDERED: CHLORHEXIDINE GLUCONATE 2 % 1 PACK (2 CLOTHS) TOP PRN (13:30)
[2017-07-16] MEDS ORDERED: SODIUM CHLORIDE 0.9% FLUSH 10 ML FLUSH IV FLUSH PRN ×2 (13:30→19:30)
--- NOTE | 2017-07-16 14:13 | PD.CONS ---
HPI Service Critical Care Medicine Consult Requested By Dr. Calderón Reason for Consult Altered mental status, brain mass Primary Care Physician Unknown History of Present Illness Ms. Sun is a 61-year-old female who was brought to the emergency room at [facility] in [place] for increasing confusion, slurred speech, and right-sided weakness for four days. CT of the head was performed and showed a brain mass with midline shift of 6.8 mm with differential including subacute hemorrhage versus neoplastic process. The patient was accepted in transfer by Dr. Barth for neurosurgical evaluation here at [facility] in [place]. Patient was reportedly awake and alert till around 12:45 PM today. Subsequently around 1 PM rapid response team was called as patient became unresponsive. FS glucose 105. I reached patient's bedside immediately on being notified by Dr. Calderón regarding change in neurologic status. In view of high suspicion for intracranial hemorrhage patient was transferred emergently to the ICU and intubated and placed on mechanical ventilation for airway protection and a stat head CT was ordered. 25 g mannitol IV stat was administered prior to intubation. Dr. Sutton was informed regarding change in neurologic status as well and will be evaluating head CT to decide further intervention. Review of Systems unobtainable as patient is comatose, orally intubated on mechanical ventilation Past Family Social History Past Medical History Hypothyroidism CVA with possible seizure activity at the time of the CVA - no seizures since and does not take AEDs Hypertension Osteoporosis Asthma Obstructive sleep apnea Bipolar disorder Non-Hodgkin's lymphoma GERD Hyperlipidemia Nephrolithiasis Thyroid nodules . Past Surgical History Cholecystectomy Temporary stent in kidney placed 04/2015, removed 12/2016 - due to obstructive lymphadenopathy Biopsy of pancreas, and liver . Reported Medications Reported Meds & Active Scripts Active Reported Proair Hfa 8.5 GM Inh (Albuterol Sulfate) 90 Mcg/Act Aer 2 Puff INH Q4-6H PRN 108 mcg/actuation Proair Hfa (Albuterol Sulfate) 90 Mcg Hfa.aer.ad Omeprazole 20 Mg Tab 20 Mg PO DAILY Quetiapine (Quetiapine Fumarate) 25 Mg Tab 25 Mg PO HS Centrum (Multiple Vitamins W/ Minerals) 1 Chew 1 Tab CHEW DAILY Levothyroxine (Levothyroxine Sodium) 150 Mcg Tab 150 Mcg PO DAILY Folic Acid 0.4 Mg Tab 1 Mg PO HS Ferrous Sulfate ER (Ferrous Sulfate) 140 Mg (45 Mg Iron) Tab 65 Mg PO DAILY Celexa (Citalopram Hydrobromide) 20 Mg Tab 20 Mg PO DAILY Atorvastatin (Atorvastatin Calcium) 40 Mg Tab 40 Mg PO HS Allopurinol 100 Mg Tab 100 Mg PO BID Acyclovir 400 Mg Tab 400 Mg PO THURSDAY, , THURSDAY Tylenol (Acetaminophen) 325 Mg Tab 500 Mg PO Q4H . Allergies: Uncoded Allergies: cotton (Allergy, Mild, Itching, 07/14/17) Family History Mother with Parkinson's and kidney failure Father with COPD Additional family history includes: hypertension, lung disease, hyperlipidemia, arthritis, and thyroid disease . Social History Tobacco: Smoked from 1966 - 1999 PPD Alcohol: Occasional social use, none in past 2 months Illicit Drugs: none Physical Exam Vital Signs Vital Signs Date Time Temp Pulse Resp B/P (MAP) Pulse Ox O2 Delivery O2 Flow Rate FiO2 07/16/17 11:23 97.6 50 17 119/63 (81) 94 07/16/17 07:00 97.3 47 16 108/72 (84) 96 07/16/17 04:00 97.8 47 18 131/63 (85) 95 07/16/17 04:00 Nasal Cannula 4.00 07/16/17 00:00 Nasal Cannula 4.00 07/16/17 00:00 98.0 56 20 114/66 (82) 95 07/15/17 21:53 97.3 55 20 119/60 (79) 94 07/15/17 20:00 Nasal Cannula 4.00 07/15/17 16:16 97.3 60 20 110/66 (81) 95 Physical Exam HEENT/ Neuro: Comatose, orally intubated, no pallor, no icterus, tongue/ mucosa moist. Pupils bilaterally constricted 2 mm. Neck: No JVD Chest/Pulm: on mech vent, good air entry bilaterally, no wheezing or crackles CVS: S1-S2 regular, no murmur GI/abdomen: soft, nontender, bowel sounds sluggish Extremities: warm bilaterally, no edema Laboratory Laboratory Tests Test 07/16/17 07:35 07/16/17 12:40 07/16/17 12:44 White Blood Count 11.1 Red Blood Count 3.76 Hemoglobin 11.7 Hematocrit 35.2 Mean Corpuscular Volume 93.8 Mean Corpuscular Hemoglobin 31.2 Mean Corpuscular Hemoglobin Concent 33.3 Red Cell Distribution Width 13.1 Platelet Count 316 Mean Platelet Volume 8.0 Blood Urea Nitrogen 20 Creatinine 0.79 Random Glucose 92 Calcium Level 9.6 Sodium Level 142 Potassium Level 3.6 Chloride Level 107 Carbon Dioxide Level 26.3 Anion Gap 9 Estimat Glomerular Filtration Rate 74 Blood Gas Puncture Site LT RADIAL Blood Gas Patient Temperature 98.6 Blood Gas HCO3 27 Blood Gas Base Excess 2.4 Blood Gas Oxygen Saturation 95 Arterial Blood pH 7.40 Arterial Blood Partial Pressure CO2 45 Arterial Blood Partial Pressure O2 81 Arterial Blood Oxygen Content 16.3 Arterial Blood Carboxyhemoglobin 1.1 Arterial Blood Methemoglobin 0.9 Blood Gas Hemoglobin 12.3 Oxygen Delivery Device NASAL CANNULA Blood Gas Liter Flow 2 Result Diagram: 07/16/17 0735 07/16/17 0735 Imaging Last Impressions Brain MRI 07/15/17 0000 Signed Impressions: Service Date/Time: Saturday, July 15, 2017 15:42 - CONCLUSION: Left basal ganglia mass with moderate associated vasogenic edema. Mild-moderate hemispheric mass effect. Serpiginous enhancement in the contralateral right mid to high convexity frontal region. Israel Ruelas MD Assessment and Plan Assessment and Plan 61-year-old female with: Encephalopathy Left basal ganglia mass with vasogenic edema and midline shift Acute respiratory failure on mechanical ventilation for airway protection Hypothyroidism h/o CVA with possible seizure activity at the time of the CVA - no seizures since and does not take AEDs Hypertension Osteoporosis Asthma Obstructive sleep apnea Bipolar disorder GERD Hyperlipidemia Plan Neuro: Sedation with propofol. Stat head CT ordered and findings reviewed with Dr. Sutton. No evidence of hemorrhage. CT head looks essentially unchanged compared to MRI per radiology.. Discussed with neurosurgery Dr. Sutton who will be deciding further management. EEG to evaluate for seizures. Anticonvulsant being initiated by neurosurgery fosphenytoin loading followed by maintenance dose. Continue Decadron 4 million g IV every 6 hourly. Received mannitol 25 g IV 1 dose. Will continue mannitol every 6 hourly. Plan for biopsy of brain mass was originally scheduled for 07/17. Cardiovascular: Bradycardia noted. Remains hypertensive. We will use dopamine if needed if patient develops hypotension secondary to bradycardia. Pulmonary: Intubated for airway protection. Continue mechanical ventilation. End-tidal CO2 monitoring. Vent bundle, bronchodilators as needed. GI/liver: N.p.o. for now. OG tube placed for medications. Renal/: IV hydration, strict intake output, monitor and replete electrolytes, follow BN creatinine. ID: No indication for antibiotics at this time. Heme: Follow CBC and coags. Endocrine: SSI for glycemic control if needed. Ruled out hypoglycemia during rapid response. Prophylaxis: PPI/SCDs. No subcu heparin or Lovenox until cleared by neurosurgery. Condition critical. Discussed with Dr. Sutton from neurosurgery. Discussed with patient's family in detail regarding plan of care and they voiced understanding. Time spent on critical care excluding procedures 60 minutes. Ashwin Barker MD Jul 16, 2017 14:13
[2017-07-16] MEDS ORDERED: TERBUTALINE INJ 1 MG/ML AMP SQ PRN (14:15)
--- NOTE | 2017-07-16 14:17 | RADRPT ---
EXAM DATE/TIME: 07/16/2017 13:47 [facility] COMPARISON: MRI BRAIN W & W/O CONTRAST, July 15, 2017, 15:42. INDICATIONS : Unresponsive. Brain mass. RADIATION DOSE: 33.36 CTDIvol (mGy) MEDICAL HISTORY : Cerebrovascular disease. Hypertension. Non-Hodgkin's lymphoma SURGICAL HISTORY : None. ENCOUNTER: Initial ACUITY: 1 day PAIN SCALE: Non-responsive LOCATION: cranial TECHNIQUE: Multiple contiguous axial images were obtained of the head. Using automated exposure control and adj ustment of the mA and/or kV according to patient size, radiation dose was kept as low as reasonably a chievable to obtain optimal diagnostic quality images. DICOM format image data is available electro nically for review and comparison. FINDINGS: CEREBRUM: The ventricles are normal for age. Left basal ganglia mass is slightly hyperdense measures 2.4 x 2.3 cm. There is mass effect and adjacent vasogenic edema. Slight left right midline shift of 3 mm and s light compression upon the left lateral ventricle. No evidence of hemorrhage or acute infarction. No extra-axial fluid collections are seen. POSTERIOR FOSSA: The cerebellum and brainstem are intact. The 4th ventricle is midline. The cerebellopontine angle i s unremarkable. EXTRACRANIAL: The visualized portion of the orbits is intact. SKULL: The calvaria is intact. No evidence of skull fracture. CONCLUSION: Left basal ganglia mass with vasogenic edema, mass effect and left to right midline shift of 3 mm. Orlando Tavarez MD on July 16, 2017 at 14:09 Board Certified Radiologist. This report was verified electronically.
[2017-07-16] MEDS ORDERED: FOSPHENYTOIN INJ 1,000 MGPE in SODIUM CHLORIDE 0.9% INJ 50 ML IV ONE (14:30)
[2017-07-16] MEDS ORDERED: DOPamine 800 MG/500 ML INJ 500 ML IV PRN (14:30)
[2017-07-16] MEDS: PROPOFOL 1000 MG/100 ML INJ 100 ML IV PRN ×2 (14:30→20:26)
--- NOTE | 2017-07-16 15:11 | PD.PROCEDR ---
Procedure Note Procedure Procedure: Endotracheal intubation Preop diagnosis: Left basal ganglia mass, encephalopathy Postop diagnosis: Same Indication: Airway protection Sedation used: Etomidate 25 mg, fentanyl 100 mcg, rocuronium 50 mg IV Procedure: Patient was preoxygenated with 100% oxygen via Ambu bag with bag mask ventilation, following induction of sedation and neuromuscular blockade, direct laryngoscopy was performed using a Mac 4 blade with good visualization of vocal cords. An 8 Indonesian ET tube was passed through the vocal cords under direct visualization up to the 21 centimeter julia and after inflating cuff of ET tube, correct placement was confirmed using bagging with good color change on CO2 detector, 5 point auscultation and chest rise with ventilation. Patient was connected to mechanical ventilation. Patient tolerated the procedure well with no immediate complications noted. Postprocedure chest x-ray was ordered. Ashwin Barker MD Jul 16, 2017 15:11
[2017-07-16 15:38] LABS: INTERNATIONAL NORMALIZED RATIO 1.1 RATIO; PROTHROMBIN TIME - PATIENT 10.7 SEC (9.8-11.6)
[2017-07-16 15:45] LABS: PHOSPHORUS 2.3 MG/DL (2.5-4.9)
[2017-07-16 15:50] LABS: CALCIUM 9.6 MG/DL (8.5-10.1); CREATININE 0.9 MG/DL (0.50-1.00); MAGNESIUM 2.4 MG/DL (1.5-2.5)
[2017-07-16] MEDS: RESP: ALBUTEROL 2.5 MG/IPRATROPIUM 0.5 MG NEB (SCH) NEB ×2 (16:00→20:31)
[2017-07-16] MEDS: MANNITOL 12.5 GM/50 ML VIAL IV SCH (18:00)
--- NOTE | 2017-07-16 19:10 | RADRPT ---
EXAM DATE/TIME: 07/16/2017 18:32 [facility] COMPARISON: No previous studies available for comparison. INDICATIONS : Respiratory failure MEDICAL HISTORY : Venous insufficiency. Cerebrovascular disease. Hypertension. Non-Hodgkin's lymphoma SURGICAL HISTORY : None. ENCOUNTER: Initial ACUITY: 1 day PAIN SCORE: Non-responsive. LOCATION: chest FINDINGS: Endotracheal tube tip is at the grupo. Nasogastric tube descends into the stomach. Left arm PICC bernard e is present. Mild bibasilar parenchymal opacities are present. Cardiac contour is grossly satisfacto ry for technique and projection. CONCLUSION: Endotracheal tube tip is at the grupo. Slight retraction suggested. Israel Ruelas MD on July 16, 2017 at 19:07 Board Certified Radiologist. This report was verified electronically.
[2017-07-16] MEDS ORDERED: ADULT - PICC FLUSH PRN FOR HEPARIN ALLERGY OR HIT DIAGNOSIS IV FLUSH (19:30)
[2017-07-16] MEDS ORDERED: ETOMIDATE 40 MG/20 ML VIAL IV PUSH ONE (20:15)
[2017-07-16] MEDS ORDERED: ROCURONIUM INJ 50 MG/5 ML VIAL IV ONE (20:15)
[2017-07-16] MEDS: ATORVASTATIN 40 MG TAB PO SCH (20:27)
[2017-07-16] MEDS: CHLORHEXIDINE 0.12% (ORAL KIT) 15 ML CUP MT SCH (20:36)
[2017-07-16] MEDS: QUEtiapine FUMARATE 25 MG TAB PO SCH (20:38)
[2017-07-16] MEDS: CHLORHEXIDINE GLUCONATE 4% SOLN 120 ML BTL TOP SCH (20:45)
[2017-07-16] MEDS: FAMOTIDINE 20 MG TAB PO SCH (20:46)
[2017-07-16] MEDS ORDERED: SODIUM CHLORIDE 0.9% FLUSH 10 ML FLUSH IV FLUSH SCH (21:00)
[2017-07-16] MEDS: FOSPHENYTOIN SODIUM 100 MG PE/2 ML VIAL IV SCH (21:03)
[2017-07-17] VITALS (16 sets, daily range): BP systolic 109–150; BP diastolic 53–68; PULSE 44–66; RESP 18–20; TEMP 97.7–98.2; O2SAT 97–100
[2017-07-17] MEDS: MANNITOL 12.5 GM/50 ML VIAL IV SCH ×5 (00:25→23:10)
[2017-07-17] MEDS: DEXAMETHASONE SOD PHOS 4 MG/ML VIAL IV PUSH SCH ×5 (00:25→23:10)
[2017-07-17] MEDS: SODIUM CHLOR 0.9% 1000 ML INJ 1,000 ML IV SCH ×2 (00:40→16:08)
[2017-07-17] MEDS: CHLORHEXIDINE GLUCONATE 2 % 1 PACK (2 CLOTHS) TOP SCH (00:40)
[2017-07-17] MEDS: PROPOFOL 1000 MG/100 ML INJ 100 ML IV PRN ×2 (01:46→07:20)
[2017-07-17] MEDS: RESP: ALBUTEROL 2.5 MG/IPRATROPIUM 0.5 MG NEB (SCH) NEB ×4 (03:42→22:24)
[2017-07-17 05:53] LABS: AUTOMATED NEUTROPHIL # 6.8 TH/MM3 (1.8-7.7); BASOPHIL % 0.1 % (0.0-2.0); HEMATOCRIT 36.1 % (35.0-46.0); HEMOGLOBIN 12.1 GM/DL (11.6-15.3); LYMPHOCYTE # 0.9 TH/MM3 (1.0-4.8); MEAN CELL VOLUME 93.2 FL (80.0-100.0); MEAN CORPUSCULAR HEMOGLOBIN 31.2 PG (27.0-34.0); MEAN CORPUSCULAR HGB CONC 33.5 % (32.0-36.0); MEAN PLATELET VOLUME 8.1 FL (7.0-11.0); MONO % 4.8 % (0.0-8.0); MONOCYTE # 0.4 TH/MM3 (0-0.9); NEUT % 84.1 % (16.0-70.0); PLATELET COUNT 287 TH/MM3 (150-450); RED BLOOD COUNT 3.87 MIL/MM3 (4.00-5.30); RED CELL DISTRIBUTION WIDTH 13.4 % (11.6-17.2); WHITE BLOOD COUNT 8.1 TH/MM3 (4.0-11.0)
[2017-07-17] MEDS ORDERED: ceFAZolin 2 GM PREMIX 50 ML IV ONE (06:00)
[2017-07-17] MEDS: FOSPHENYTOIN SODIUM 100 MG PE/2 ML VIAL IV SCH ×3 (06:04→20:51)
[2017-07-17] MEDS: LEVOTHYROXINE SODIUM 150 MCG TAB PO SCH (06:05)
[2017-07-17 06:35] LABS: ALBUMIN 3.6 GM/DL (3.4-5.0); ALKALINE PHOSPHATASE 78 U/L (45-117); ALT (GPT) 21 U/L (10-53); AST (GOT) 22 U/L (15-37); BICARBONATE 23.2 MEQ/L (21.0-32.0); BLOOD UREA NITROGEN 18 MG/DL (7-18); CALCIUM 8.5 MG/DL (8.5-10.1); CHLORIDE 113 MEQ/L (98-107); CREATININE 0.94 MG/DL (0.50-1.00); GLOMERULAR FILTRATION RATE 60 ML/MIN (>89); GLUCOSE,RANDOM 140 MG/DL (74-106); PHENYTOIN (DILANTIN) 6.4 MCG/ML (10.0-20.0); SODIUM (NA) 144 MEQ/L (136-145); TOTAL BILIRUBIN ADULT 0.6 MG/DL (0.2-1.0); TOTAL PROTEIN 7.3 GM/DL (6.4-8.2)
[2017-07-17] MEDS ORDERED: GENTAMICIN SULFATE 80 MG/2 ML VIAL ONE ×2 (07:12→08:18)
[2017-07-17] MEDS: CHLORHEXIDINE 0.12% (ORAL KIT) 15 ML CUP MT SCH ×2 (08:00→20:00)
[2017-07-17] MEDS ORDERED: THROMBIN (TOPICAL) 5,000 UNIT VIAL ONE (08:17)
[2017-07-17] MEDS ORDERED: GELFOAM SIZE 100 ONE (08:17)
[2017-07-17] MEDS ORDERED: LIDOCAINE 1%/EPINEPHrine 1:100,000 SOLN 30 ML VIAL ONE (08:17)
[2017-07-17] MEDS ORDERED: FUROSEMIDE 40 MG/4 ML VIAL ONE (08:18)
[2017-07-17] MEDS ORDERED: levETIRAcetam 500 MG/5 ML VIAL IV ONE ×2 (08:18→08:22)
[2017-07-17] MEDS ORDERED: BACITRACIN TOP OINT 15 GM TUBE ONE (08:18)
--- NOTE | 2017-07-17 08:19 | MG ---
cc: Kaci Cruz MD REFERRED BY: JAMES Renteria DESCRIPTION: A stat EEG was obtained on this 61-year-old patient being evaluated for slurred speech, right-sided weakness, dementia. The patient is described as intubated. The EEG shows a lot of theta and delta rhythms intermittently bilaterally, but left more than right. The alpha activity is more prominent on the right than left and there are beta rhythms centrally and frontally. There is no ictal pattern. There is artifact intermittently. Hyperventilation was then performed. Photic stimulation was unremarkable. I should mention, the patient was on Diprivan. INTERPRETATION: Abnormal EEG because of continuous left hemisphere slowing, suggesting left hemisphere structural abnormality, but there are no ictal or epileptiform discharge. There is some less pronounced right hemispheric slowing. Kaci Cruz MD [facility]/ , 06:33 PM , 07:00 PM
[2017-07-17] MEDS ORDERED: SODIUM CHLORIDE 0.9% FLUSH 10 ML FLUSH IV FLUSH SCH (09:00)
[2017-07-17] MEDS: ALLOPURINOL 100 MG TAB PO SCH ×2 (09:00→20:52)
[2017-07-17] MEDS: FERROUS SULFATE 325 MG (65 MG ELEMENTAL IRON) TAB PO SCH (09:00)
--- NOTE | 2017-07-17 09:25 | HHI.CCPN ---
Subjective Remarks/Hospital Course 07/16: Ms. Sun is a 61-year-old female who was brought to the emergency room at [facility] in [place] for increasing confusion , slurred speech, and right-sided weakness for four days. CT of the head was performed and showed a brain mass with midline shift of 6.8 mm with differential including subacute hemorrhage versus neoplastic process. The patient was accepted in transfer by Dr. Barth for neurosurgical evaluation here at [facility] in [place]. Patient was reportedly awake and alert till around 12:45 PM today. Subsequently around 1 PM rapid response team was called as patient became unresponsive. FS glucose 105. I reached patient's bedside immediately on being notified by Dr. Calderón regarding change in neurologic status. In view of high suspicion for intracranial hemorrhage patient was transferred emergently to the ICU and intubated and placed on mechanical ventilation for airway protection and a stat head CT was ordered. 25 g mannitol IV stat was administered prior to intubation. Dr. Sutton was informed regarding change in neurologic status as well and will be evaluating head CT to decide further intervention. 07/17: Sedated, arousable, orally intubated on mechanical ventilation. For brain biopsy today. Objective Vital Signs Date Time Temp Pulse Resp B/P (MAP) Pulse Ox O2 Delivery O2 Flow Rate FiO2 07/17/17 06:49 100 40 07/17/17 04:00 97.7 54 20 109/60 (76) 07/16/17 19:00 Mechanical Ventilator 07/16/17 08:00 2.00 Intake and Output 07/17/17 07/17/17 07/18/17 08:00 16:00 00:00 Intake Total 0 ml Output Total 850 ml Balance -850 ml Result Diagram: 07/17/17 0520 07/17/17 0520 Other Results Laboratory Tests Test 07/16/17 12:40 07/16/17 17:25 Blood Gas Puncture Site LT RADIAL RT RADIAL Blood Gas Patient Temperature 98.6 98.6 Blood Gas HCO3 27 mmol/L (22-26) 24 mmol/L (22-26) Blood Gas Base Excess 2.4 mmol/L (-2-2) 1.7 mmol/L (-2-2) Blood Gas Oxygen Saturation 95 % (90-100) 97 % (90-100) Arterial Blood pH 7.40 (7.380-7.420) 7.52 (7.380-7.420) Arterial Blood Partial Pressure CO2 45 mmHg (38-42) 30 mmHg (38-42) Arterial Blood Partial Pressure O2 81 mmHg (61-120) 106 mmHg (61-120) Arterial Blood Oxygen Content 16.3 Vol % (12.0-20.0) 17.2 Vol % (12.0-20.0) Arterial Blood Carboxyhemoglobin 1.1 % (0-4) 1.2 % (0-4) Arterial Blood Methemoglobin 0.9 % (0-2) 1.0 % (0-2) Blood Gas Hemoglobin 12.3 G/DL (12.0-16.0) 12.6 G/DL (12.0-16.0) Oxygen Delivery Device NASAL CANNULA VENTILATOR Blood Gas Liter Flow 2 L/M Blood Gas Ventilator Setting PRVC/20/600/+5/50 Blood Gas Inspired Oxygen 50 % Imaging Last Impressions Brain MRI 07/15/17 0000 Signed Impressions: Service Date/Time: Saturday, July 15, 2017 15:42 - CONCLUSION: Left basal ganglia mass with moderate associated vasogenic edema. Mild-moderate hemispheric mass effect. Serpiginous enhancement in the contralateral right mid to high convexity frontal region. Israel Ruelas MD Objective Remarks HEENT/ Neuro: Sedated, arousable, following commands, moving all 4 extremities, orally intubated, no pallor, no icterus, tongue/ mucosa moist. Pupils bilaterally constricted 2 mm. Neck: No JVD Chest/Pulm: on mech vent, good air entry bilaterally, no wheezing or crackles CVS: S1-S2 regular, no murmur GI/abdomen: soft, nontender, bowel sounds sluggish Extremities: warm bilaterally, no edema A/P Assessment and Plan 61-year-old female with: Encephalopathy Left basal ganglia mass with vasogenic edema and midline shift Acute respiratory failure on mechanical ventilation for airway protection Hypothyroidism h/o CVA with possible seizure activity at the time of the CVA - no seizures since and does not take AEDs Hypertension Osteoporosis Asthma Obstructive sleep apnea Bipolar disorder GERD Hyperlipidemia Plan Neuro: Sedation with propofol. Head CT done on 07/16 with no significant change compared to MRI brain per radiology. EEG did not show any seizure activity. Anticonvulsant started on 07/16: fosphenytoin loading followed by maintenance dose. Continue Decadron 4 million g IV every 6 hourly. Received mannitol 25 g IV 1 dose. continue mannitol every 6 hourly. Scheduled for biopsy of brain mass for 07/17. Cardiovascular: Bradycardia noted. Remains hypertensive. We will use dopamine if needed if patient develops hypotension secondary to bradycardia. Pulmonary: Intubated for airway protection. Continue mechanical ventilation. End-tidal CO2 monitoring. Vent bundle, bronchodilators as needed. Possible extubation after surgery. GI/liver: N.p.o. for now. OG tube placed for medications. Renal/: IV hydration, strict intake output, monitor and replete electrolytes, follow BN creatinine. ID: Antibiotic prophylaxis per neurosurgery Heme: Follow CBC and coags. Endocrine: SSI for glycemic control if needed. Ruled out hypoglycemia during rapid response. Prophylaxis: PPI/SCDs. No subcu heparin or Lovenox until cleared by neurosurgery. Condition critical. Discussed with Dr. Sutton from neurosurgery. Discussed with patient's family in detail regarding plan of care and they voiced understanding on 07/16. Time spent on critical care excluding procedures 35 minutes. Ashwin Barker MD Jul 17, 2017 09:25
[2017-07-17] MEDS ORDERED: BISACODYL 10 MG SUPP PR PRN (10:45)
[2017-07-17] MEDS ORDERED: CALCIUM GLUCONATE 10% 1 GM/10 ML VIAL IV PRN (10:45)
[2017-07-17] MEDS ORDERED: MIDAZOLAM HCL 2 MG/2 ML VIAL ONE ×2 (11:16→18:36)
--- NOTE | 2017-07-17 11:42 | RADRPT ---
EXAM DATE/TIME: 07/17/2017 11:28 [facility] COMPARISON: CT BRAIN W/O CONTRAST, July 16, 2017, 13:47. INDICATIONS : Brain mass. Post craniotomy. RADIATION DOSE: 52.74 CTDIvol (mGy) MEDICAL HISTORY : Cerebrovascular disease. Cardiovascular disease Hypertension. SURGICAL HISTORY : None. ENCOUNTER: Initial ACUITY: 1 day PAIN SCALE: Non-responsive LOCATION: cranial TECHNIQUE: Multiple contiguous axial images were obtained of the head. Using automated exposure control and adj ustment of the mA and/or kV according to patient size, radiation dose was kept as low as reasonably a chievable to obtain optimal diagnostic quality images. DICOM format image data is available electro nically for review and comparison. FINDINGS: CEREBRUM: The hyperdense brain mass again seen. There is air within this mass from apparent biopsy. Small crani otomy/angelia hole seen within the left frontal calvarium. There is mass effect with adjacent vasogenic edema and left to right midline shift.. POSTERIOR FOSSA: The cerebellum and brainstem are intact. The 4th ventricle is midline. The cerebellopontine angle i s unremarkable. EXTRACRANIAL: The visualized portion of the orbits is intact. SKULL: Picacho hole left frontal calvarium. No evidence of skull fracture. CONCLUSION: 1. Status post biopsy of left brain mass. Orlando Tavarez MD on July 17, 2017 at 11:33 Board Certified Radiologist. This report was verified electronically.
[2017-07-17] MEDS ORDERED: MAGNESIUM SULFATE INJ 4 GM in SODIUM CHLORIDE 0.9% INJ 100 ML IV PRN (11:45)
[2017-07-17] MEDS ORDERED: POTASSIUM CHLOR 20 MEQ PREMIX 100 ML IV PRN (11:45)
[2017-07-17] MEDS ORDERED: MORPHINE SULFATE 2 MG/ML SYRINGE IV PUSH PRN (11:45)
[2017-07-17] MEDS ORDERED: PROPOFOL 200 MG/20 ML AMP IV ONE (12:00)
[2017-07-17] MEDS ORDERED: LIDOCAINE HCL 1% PF 5 ML SYRINGE OTHER ONE (12:00)
[2017-07-17] MEDS ORDERED: LACTATED RINGER'S 1000 ML INJ 1,000 ML IV ONE (12:00)
[2017-07-17] MEDS ORDERED: ROCURONIUM INJ 50 MG/5 ML SYRINGE IV PUSH ONE (12:00)
[2017-07-17] MEDS ORDERED: SODIUM CHLORID 0.9% 500 ML INJ 500 ML IV ONE (12:00)
[2017-07-17] MEDS ORDERED: ePHEDrine/NS 25 MG/5 ML SYRINGE IV ONE (12:00)
[2017-07-17] MEDS ORDERED: NORMOSOL R INJ 1,000 ML IV ONE (12:00)
[2017-07-17] MEDS: CITALOPRAM HYDROBROMIDE 20 MG TAB PO SCH (12:28)
[2017-07-17] MEDS: DOCUSATE SODIUM 50 MG/SENNA 8.6 MG TAB PO SCH ×2 (12:29→20:52)
[2017-07-17] MEDS: FAMOTIDINE 20 MG TAB PO SCH ×2 (12:29→20:52)
[2017-07-17] MEDS: levETIRAcetam INJ 500 MG in SODIUM CHLORIDE 0.9% INJ 100 ML IV SCH ×2 (12:35→23:10)
[2017-07-17] MEDS: NS + KCL 20 MEQ INJ 1,000 ML IV SCH ×2 (12:36→20:51)
[2017-07-17] MEDS: ceFAZolin 2 GM PREMIX 50 ML IV SCH ×2 (14:04→20:51)
--- NOTE | 2017-07-17 17:40 | PD.OP ---
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 The lesions had abnormal signal intensity and and characteristics consistent with a possible neoplastic, inflammatory, or infectious process. A stereotactic biopsy of the lesions was indicated. The [id number] details of the procedure, its indications, alternatives, risks and potential complications were fully discussed with the patient. The patient fully understood. All questions were answered. No guarantees were given. The patient voiced requesting the procedure and provided informed consents. The patient was offered the alternative of not having aggressive management. DETAILS OF THE SURGICAL PROCEDURE Preoperative planning Prior to the surgery the patient underwent an MRI of the brain according to the stereotactic protocol. The information from the MRI scan was transferred to the operating room via the hospital network and the preoperative planning of the lesion was made. A julia was made at the patients operative site according to the hospital policy. Surgical positioning The patient was then brought to the operating room. After induction of general anesthesia endotracheal intubation was performed. Bkilateral carlso hose and sequential compression devices were placed and kept throughout the procedure. The patient was positioned supine on a 3080 table over a soft mattress. All pressure points were carefully padded with an egg crate mattress. The eyes were tapped shut after ointment was applied by the anesthesiologist to prevent corneal abrasion. A Shannon hugger was placed over the exposed lower body to maintain control of the core body temperature. The head was held in rigid fixation using the Bravo fish header. Intraoperative registration The rigid body was attached to the [place] headholder. Intraoperative registration was then performed with the [facility]. The lesion was located in the three planes, sagittal, axial and coronal. An entry point was selected in the scalp. Surgical Approach and stereotactic biopsy The skin was prepped and draped in the usual sterile fashion. A linear incision in the left frontal region selected by the planning was outlined. The area was infiltrated with 1% lidocaine with epinephrine 1:100,000 dilution. A skin incision was made with a #10 blade. Small subgaleal bleeders were controlled with a bipolar a small self-retaining retractor was placed in the incision. The fascia and muscle were incised with a Bovie and retracted at each side. The Midas Freddy was brought into the field and a bur hole was made with an AM-8 drill bit. The duramatter was coagulated with a bipolar and opening increased for pressure and a very small corticotomy performed. At this point of the procedure the stereotactic biopsy arm was brought into the field and secured to the fish header. The advanced practice rn was brought into the field, and the trajectory on the biopsy arm was created following the previously selected trajectory. Then, a stereotactic needle was carefully inserted into the brain at the center of the lesion and by gentle aspiration two initial biopsies were obtained, one of which was sent to the lab for frozen section, while the second kept for permanent histological annalysis. Meanwhile, additional specimens were obtained for permanent histologic analysis. At this point in the procedure , after waiting for awhile, the frozen section was called in and reported as lymphoma. The biopsy needle was carefully removed and the stereotactic device was removed. The incision was irrigated with a large amount of saline. A piece of Gelfoam was placed over the surface of the brain and a bur hole cover was placed. The incision was closed in layers. 3-0 Vicryl with interrupted sutures were used to close the fascial layers and galea. The skin was closed with chip. A sterile dressing was applied. At the end of the procedure the sponge, needle and instrument counts were all correct. Estimated blood loss was minimal. No blood transfusion was given. The patient received preoperative prophylactic antibiotics. No intraoperative complications occurred. The patient was transferred to the recovery room in stable condition. Miguel Sutton MD Jul 17, 2017 17:40
[2017-07-17] MEDS: DOCUSATE SODIUM 100 MG CAP PO SCH (20:52)
[2017-07-17] MEDS: CHLORHEXIDINE GLUCONATE 4% SOLN 120 ML BTL TOP SCH (20:52)
[2017-07-17] MEDS: ATORVASTATIN 40 MG TAB PO SCH (20:52)
[2017-07-17] MEDS: QUEtiapine FUMARATE 25 MG TAB PO SCH (20:52)
[2017-07-17] MEDS ORDERED: FUROSEMIDE 100 MG/10 ML VIAL IV PUSH ONE (22:09)
[2017-07-18] VITALS (11 sets, daily range): BP systolic 103–134; BP diastolic 55–70; PULSE 48–58; RESP 18–22; TEMP 98.2–98.6; O2SAT 94–100
[2017-07-18] MEDS: RESP: ALBUTEROL 2.5 MG/IPRATROPIUM 0.5 MG NEB (SCH) NEB ×4 (03:55→20:52)
[2017-07-18] MEDS: CHLORHEXIDINE GLUCONATE 2 % 1 PACK (2 CLOTHS) TOP SCH (04:00)
[2017-07-18] MEDS: SODIUM CHLOR 0.9% 1000 ML INJ 1,000 ML IV SCH ×2 (04:37→18:48)
[2017-07-18 04:47] LABS: AUTOMATED NEUTROPHIL # 7.8 TH/MM3 (1.8-7.7); BASOPHIL % 0.3 % (0.0-2.0); HEMATOCRIT 32.1 % (35.0-46.0); HEMOGLOBIN 10.8 GM/DL (11.6-15.3); LYMPH % 13.7 % (9.0-44.0); LYMPHOCYTE # 1.3 TH/MM3 (1.0-4.8); MEAN CELL VOLUME 94.2 FL (80.0-100.0); MEAN CORPUSCULAR HEMOGLOBIN 31.6 PG (27.0-34.0); MEAN CORPUSCULAR HGB CONC 33.6 % (32.0-36.0); MONO % 5.1 % (0.0-8.0); MONOCYTE # 0.5 TH/MM3 (0-0.9); NEUT % 80.9 % (16.0-70.0); PLATELET COUNT 264 TH/MM3 (150-450); RED BLOOD COUNT 3.41 MIL/MM3 (4.00-5.30); RED CELL DISTRIBUTION WIDTH 13.5 % (11.6-17.2); WHITE BLOOD COUNT 9.6 TH/MM3 (4.0-11.0)
[2017-07-18 04:49] LABS: BICARBONATE 23.3 MEQ/L (21.0-32.0); CALCIUM 8.2 MG/DL (8.5-10.1); CREATININE 0.67 MG/DL (0.50-1.00)
[2017-07-18] MEDS: MANNITOL 12.5 GM/50 ML VIAL IV SCH ×3 (05:32→18:27)
[2017-07-18] MEDS: ceFAZolin 2 GM PREMIX 50 ML IV SCH (05:32)
[2017-07-18] MEDS: DEXAMETHASONE SOD PHOS 4 MG/ML VIAL IV PUSH SCH ×3 (05:32→18:27)
[2017-07-18] MEDS: FOSPHENYTOIN SODIUM 100 MG PE/2 ML VIAL IV SCH ×3 (05:32→21:27)
[2017-07-18] MEDS: CHLORHEXIDINE 0.12% (ORAL KIT) 15 ML CUP MT SCH ×2 (08:00→21:28)
[2017-07-18] MEDS: LEVOTHYROXINE SODIUM 150 MCG TAB PO SCH (08:03)
--- NOTE | 2017-07-18 08:44 | HHI.CCPN ---
Subjective Remarks/Hospital Course 07/16: Ms. Sun is a 61-year-old female who was brought to the emergency room at [facility] in [place] for increasing confusion , slurred speech, and right-sided weakness for four days. CT of the head was performed and showed a brain mass with midline shift of 6.8 mm with differential including subacute hemorrhage versus neoplastic process. The patient was accepted in transfer by Dr. Barth for neurosurgical evaluation here at [facility] in [place]. Patient was reportedly awake and alert till around 12:45 PM today. Subsequently around 1 PM rapid response team was called as patient became unresponsive. FS glucose 105. I reached patient's bedside immediately on being notified by Dr. Calderón regarding change in neurologic status. In view of high suspicion for intracranial hemorrhage patient was transferred emergently to the ICU and intubated and placed on mechanical ventilation for airway protection and a stat head CT was ordered. 25 g mannitol IV stat was administered prior to intubation. Dr. Sutton was informed regarding change in neurologic status as well and will be evaluating head CT to decide further intervention. 07/17: Sedated, arousable, orally intubated on mechanical ventilation. For brain biopsy today. 07/18: Stereotactic brain biopsy performed yesterday. Procedure was well tolerated and blood pressure control is acceptable. No seizures overnight. Awaiting pathology report. Objective Vital Signs Date Time Temp Pulse Resp B/P (MAP) Pulse Ox O2 Delivery O2 Flow Rate FiO2 07/18/17 04:00 98.3 56 20 100 134/70 (91) 07/17/17 22:27 Nasal Cannula 1.50 07/17/17 19:00 97 Intake and Output 07/18/17 07/18/17 07/19/17 08:00 16:00 00:00 Intake Total 155 ml Output Total 1250 ml Balance -1095 ml Result Diagram: 07/18/17 0415 07/18/17 0415 Imaging Last Impressions Brain MRI 07/15/17 0000 Signed Impressions: Service Date/Time: Saturday, July 15, 2017 15:42 - CONCLUSION: Left basal ganglia mass with moderate associated vasogenic edema. Mild-moderate hemispheric mass effect. Serpiginous enhancement in the contralateral right mid to high convexity frontal region. Israel Ruelas MD Objective Remarks HEENT/ Neuro: Conversant, quite alert, following commands, moving all 4 extremities, no pallor, no icterus, tongue/ mucosa moist. Pupils bilaterally 2 mm, reactive. Neck: Supple: Airway widely patent, no obstructive sounds. Chest/Pulm: Clear. Good air entry bilaterally, no wheezing or crackles CVS: S1-S2 regular, no murmur, no JVD GI/abdomen: soft, nontender, bowel sounds active, no guarding Extremities: warm bilaterally, no edema, well perfused. A/P Assessment and Plan 61-year-old female with: Encephalopathy Left basal ganglia mass with vasogenic edema and midline shift Acute respiratory failure on mechanical ventilation for airway protection Hypothyroidism h/o CVA with possible seizure activity at the time of the CVA - no seizures since and does not take AEDs Hypertension Osteoporosis Asthma Obstructive sleep apnea Bipolar disorder GERD Hyperlipidemia Plan Neuro: Sedation with propofol. Head CT done on 07/16 with no significant change compared to MRI brain per radiology. EEG did not show any seizure activity. Anticonvulsant started on 07/16: fosphenytoin loading followed by maintenance dose. Continue Decadron 4 million g IV every 6 hourly. Received mannitol 25 g IV 1 dose. continue mannitol every 6 hourly. Scheduled for biopsy of brain mass for 07/17 -done. Cardiovascular: Bradycardia noted. Remains hypertensive. We will use dopamine if needed if patient develops hypotension secondary to bradycardia. Pulmonary: Intubated for airway protection. Continue mechanical ventilation. End-tidal CO2 monitoring. Vent bundle, bronchodilators as needed. GI/liver: N.p.o. for now. OG tube placed for medications. Renal/: IV hydration, strict intake output, monitor and replete electrolytes, follow BN creatinine. Awaiting pathology report. ID: Antibiotic prophylaxis per neurosurgery Heme: Follow CBC and coags. Endocrine: SSI for glycemic control if needed. Ruled out hypoglycemia during rapid response. Prophylaxis: PPI/SCDs. No subcu heparin or Lovenox until cleared by neurosurgery. Condition critical. Discussed with Dr. Sutton from neurosurgery. Discussed with patient's family in detail regarding plan of care and they voiced understanding on 07/16. Overall impression: Likely brain tumor in the basal ganglia. Requires hospitalization and ongoing seizure treatment. Pathology report will dictate long-term care. Edgar Barth MD Jul 18, 2017 08:44
[2017-07-18] MEDS ORDERED: PANTOPRAZOLE SODIUM 40 MG VIAL IVP PRN (09:00)
--- NOTE | 2017-07-18 09:01 | EKG ---
Date Performed: 07/17/2017 Time Performed: 06:29:40 PTAGE: 61 years EKG: Sinus bradycardia Prolonged QT interval Right axis deviation Right ventricular hypertrophy Lateral T wave changes may be due to myocardial ischemia Abnormal ECG NO PREVIOUS TRACING DOCTOR: Martha Morillo Interpretating Date/Time 07/18/2017 08:59:23
[2017-07-18] MEDS: NS + KCL 20 MEQ INJ 1,000 ML IV SCH ×2 (09:38→18:27)
[2017-07-18] MEDS: FERROUS SULFATE 325 MG (65 MG ELEMENTAL IRON) TAB PO SCH (09:39)
[2017-07-18] MEDS: FAMOTIDINE 20 MG TAB PO SCH ×2 (09:39→21:28)
[2017-07-18] MEDS: DOCUSATE SODIUM 100 MG CAP PO SCH ×2 (09:39→21:28)
[2017-07-18] MEDS: PANTOPRAZOLE SOD 40 MG DELAYED RELEASE TAB PO SCH (09:39)
[2017-07-18] MEDS: CITALOPRAM HYDROBROMIDE 20 MG TAB PO SCH (09:40)
[2017-07-18] MEDS: ALLOPURINOL 100 MG TAB PO SCH ×2 (09:40→21:28)
[2017-07-18] MEDS: DOCUSATE SODIUM 50 MG/SENNA 8.6 MG TAB PO SCH ×2 (09:40→21:27)
--- NOTE | 2017-07-18 13:01 | HHI.NSPN ---
(Jonh Sanchez) History Chief Complaint: Headache when laid flat. (Jonh Sanchez) Interval History 07/15: Ms. Sun is a 61-year-old female who is brought to the emergency room at [facility] for increasing confusion, slurred speech, and right-sided weakness for four days. CT of the head showed a brain mass with midline shift of 6.8 mm with differential including subacute hemorrhage versus neoplastic process. The patient was accepted in transfer by Dr. Todd for neurosurgical evaluation. No seizure activity reported. No tonic-clonic movements. No tongue biting. No incontinence of stool or urine. She remains slightly confused and does not know why she is here at the hospital. She indicates that she's been feeling fine. She denies any fever, chills, nausea, vomiting, or cough. She moves both upper and lower extremities without any focal weakness. She denies any sensory loss. She denies any headaches nausea vomiting. Denies any incontinence or stool or urine. Neurosurgical consultation was requested 07/17: The patient went to the operating room for a stereotactic biopsy of a left basal ganglia mass. Post-operatively she was admitted to the ISC unit for further care and monitoring. 07/18: This morning the patient is awake and alert in bed. She does have a headache when she is laid flat, otherwise she does not. She is having some abdominal pain. She does have some confusion still. She does have some weakness to the right side extremities. (Jonh Sanchez) Exam Results 07/16/17 07/16/17 07/17/17 07/17/17 07/18/17 07/18/17 06:00 18:00 06:00 18:00 06:00 18:00 Intake Total 320 ml 170 ml 0 ml 2259 ml 1205 ml Output Total 0 ml 675 ml 850 ml 1100 ml 1250 ml Balance 320 ml -505 ml -850 ml 1159 ml -45 ml Intake Oral 320 ml 0 ml IV Total 170 ml 1059 ml 1205 ml Other 1200 ml Output Urine Total 0 ml 650 ml 850 ml 875 ml 1250 ml Gastric Drainage Total 25 ml 0 ml 220 ml Estimated Blood Loss 5 ml # Voids 4 1 # Bowel Movements 1 0 0 0 Vital Signs Date Time Temp Pulse Resp B/P (MAP) Pulse Ox O2 Delivery O2 Flow Rate FiO2 07/18/17 09:16 94 21 07/18/17 08:15 Room Air 95 07/18/17 04:00 98.3 56 20 100 134/70 (91) 07/18/17 00:00 98.2 58 20 97 122/62 (82) 07/17/17 23:00 66 07/17/17 22:27 100 Nasal Cannula 1.50 07/17/17 20:00 98.2 60 18 97 122/54 (76) 07/17/17 19:00 Nasal Cannula 2.00 97 07/17/17 16:15 Nasal Cannula 2.00 100 07/17/17 16:12 99 Nasal Cannula 2.00 07/17/17 16:12 99 Nasal Cannula 2 07/17/17 16:00 40 07/17/17 16:00 64 07/17/17 16:00 97.9 64 20 100 148/65 (92) 07/17/17 15:16 40 07/17/17 15:10 40 07/17/17 14:00 55 07/17/17 12:00 65 07/17/17 12:00 40 07/17/17 12:00 98.1 65 20 100 142/63 (89) 07/17/17 11:55 99 40 07/17/17 11:20 100 100 07/17/17 08:00 40 07/17/17 08:00 98.2 50 20 114/68 (83) 99 07/17/17 07:50 99 40 07/17/17 07:00 57 07/17/17 07:00 100 Mechanical Ventilator 40 07/17/17 06:49 100 40 07/17/17 04:00 97.7 54 20 109/60 (76) 100 07/17/17 04:00 40 07/17/17 03:43 98 40 07/17/17 00:00 97.9 44 20 150/53 (85) 100 07/17/17 00:00 40 07/16/17 23:00 46 07/16/17 20:34 99 40 07/16/17 20:30 94/55 (68) 07/16/17 20:00 97.9 42 20 85/52 (63) 100 07/16/17 19:00 Mechanical Ventilator 50 07/16/17 18:00 49 07/16/17 16:00 97.7 40 20 114/68 (83) 100 07/16/17 16:00 45 07/16/17 16:00 50 07/16/17 15:39 100 50 07/16/17 14:00 42 07/16/17 13:15 100 07/16/17 13:15 49 07/16/17 13:15 97.5 49 20 164/96 (118) 100 07/16/17 11:23 97.6 50 17 119/63 (81) 94 07/16/17 08:00 2.00 07/16/17 07:00 97.3 47 16 108/72 (84) 96 07/16/17 04:00 97.8 47 18 131/63 (85) 95 07/16/17 04:00 Nasal Cannula 4.00 07/16/17 00:00 Nasal Cannula 4.00 07/16/17 00:00 98.0 56 20 114/66 (82) 95 07/15/17 21:53 97.3 55 20 119/60 (79) 94 07/15/17 20:00 Nasal Cannula 4.00 07/15/17 16:16 97.3 60 20 110/66 (81) 95 (Jonh Sanchez) Physical Examination CONSTITUTIONAL: Awake & alert in bed. HEENT: Normocephalic, slight right facial droop. Intact bandage to left frontal surgical site w/o any evident drainage, erythema or streaking noted. PERRLA, EOMI. MMM & pink, tongue midline to protrusion. CARDIOVASCULAR: S1S2 w/regular but slow rate w/o M/G/R. Monitor is sinus bradycardia w/o any ectopy noted. RESPIRATORY: CTAB w/o W/R/R, equal excursion, non-laboured, on RA. GASTROINTESTINAL: Abdomen soft, nontender, positive bowel sounds. MUSCULOSKELETAL: Moves all extremities spontaneously & purposefully. No evident clubbing or deformity noted. NEUROLOGICAL: Awake & alert, oriented to person, month & being in the hospital but thinks it is 1967. Speech clear. Questionable receptive aphasia. Follows some simple commands. Mild right side facial droop. PERRRLA, EOMI. Tongue midline to protrusion. Sensation appears to be intact to light touch to all extremities. Muscle strength strong to left side and weaker to the right. (Jonh Sanchez) Lab, Micro, Other Results Recent Impressions Head CT 07/17/17 0000 Signed Impressions: Service Date/Time: Monday, July 17, 2017 11:28 - CONCLUSION: 1. Status post biopsy of left brain mass. Orlando Tavarez MD Chest X-Ray 07/16/17 1430 Signed Impressions: Service Date/Time: June 18:32 - CONCLUSION: Endotracheal tube tip is at the grupo. Slight retraction suggested. Israel Ruelas MD Head CT 07/16/17 0000 Signed Impressions: Service Date/Time: June 13:47 - CONCLUSION: Left basal ganglia mass with vasogenic edema, mass effect and left to right midline shift of 3 mm. Orlando Tavarez MD Laboratory Tests Test 07/16/17 07:35 07/16/17 12:40 07/16/17 14:32 07/16/17 17:25 White Blood Count 11.1 TH/MM3 Red Blood Count 3.76 MIL/MM3 Hemoglobin 11.7 GM/DL Hematocrit 35.2 % Mean Corpuscular Volume 93.8 FL Mean Corpuscular Hemoglobin 31.2 PG Mean Corpuscular Hemoglobin Concent 33.3 % Red Cell Distribution Width 13.1 % Platelet Count 316 TH/MM3 Mean Platelet Volume 8.0 FL Blood Urea Nitrogen 20 MG/DL 24 MG/DL Creatinine 0.79 MG/DL 0.90 MG/DL Random Glucose 92 MG/DL 116 MG/DL Calcium Level 9.6 MG/DL 9.6 MG/DL Sodium Level 142 MEQ/L 141 MEQ/L Potassium Level 3.6 MEQ/L 3.5 MEQ/L Chloride Level 107 MEQ/L 106 MEQ/L Carbon Dioxide Level 26.3 MEQ/L 26.0 MEQ/L Anion Gap 9 MEQ/L 9 MEQ/L Estimat Glomerular Filtration Rate 74 ML/MIN 63 ML/MIN Blood Gas Puncture Site LT RADIAL RT RADIAL Blood Gas Patient Temperature 98.6 98.6 Blood Gas HCO3 27 mmol/L 24 mmol/L Blood Gas Base Excess 2.4 mmol/L 1.7 mmol/L Blood Gas Oxygen Saturation 95 % 97 % Arterial Blood pH 7.40 7.52 Arterial Blood Partial Pressure CO2 45 mmHg 30 mmHg Arterial Blood Partial Pressure O2 81 mmHg 106 mmHg Arterial Blood Oxygen Content 16.3 Vol % 17.2 Vol % Arterial Blood Carboxyhemoglobin 1.1 % 1.2 % Arterial Blood Methemoglobin 0.9 % 1.0 % Blood Gas Hemoglobin 12.3 G/DL 12.6 G/DL Oxygen Delivery Device NASAL CANNULA VENTILATOR Blood Gas Liter Flow 2 L/M Prothrombin Time 10.7 SEC Prothromb Time International Ratio 1.1 RATIO Activated Partial Thromboplast Time 23.7 SEC Phosphorus Level 2.3 MG/DL Magnesium Level 2.4 MG/DL Blood Gas Ventilator Setting PRVC/20/600/+5/50 Blood Gas Inspired Oxygen 50 % Test 07/16/17 19:40 07/16/17 23:45 07/17/17 05:20 07/17/17 11:45 Serum Osmolality 311 MOSM/KG 310 MOSM/KG 309 MOSM/KG 309 MOSM/KG White Blood Count 8.1 TH/MM3 Red Blood Count 3.87 MIL/MM3 Hemoglobin 12.1 GM/DL Hematocrit 36.1 % Mean Corpuscular Volume 93.2 FL Mean Corpuscular Hemoglobin 31.2 PG Mean Corpuscular Hemoglobin Concent 33.5 % Red Cell Distribution Width 13.4 % Platelet Count 287 TH/MM3 Mean Platelet Volume 8.1 FL Neutrophils (%) (Auto) 84.1 % Lymphocytes (%) (Auto) 11.0 % Monocytes (%) (Auto) 4.8 % Eosinophils (%) (Auto) 0.0 % Basophils (%) (Auto) 0.1 % Neutrophils # (Auto) 6.8 TH/MM3 Lymphocytes # (Auto) 0.9 TH/MM3 Monocytes # (Auto) 0.4 TH/MM3 Eosinophils # (Auto) 0.0 TH/MM3 Basophils # (Auto) 0.0 TH/MM3 CBC Comment DIFF FINAL Differential Comment Blood Urea Nitrogen 18 MG/DL Creatinine 0.94 MG/DL Random Glucose 140 MG/DL Total Protein 7.3 GM/DL Albumin 3.6 GM/DL Calcium Level 8.5 MG/DL Alkaline Phosphatase 78 U/L Aspartate Amino Transf (AST/SGOT) 22 U/L Alanine Aminotransferase (ALT/SGPT) 21 U/L Total Bilirubin 0.6 MG/DL Sodium Level 144 MEQ/L Potassium Level 3.5 MEQ/L Chloride Level 113 MEQ/L Carbon Dioxide Level 23.2 MEQ/L Anion Gap 8 MEQ/L Estimat Glomerular Filtration Rate 60 ML/MIN Phenytoin (Dilantin) Level 6.4 MCG/ML Test 07/17/17 18:25 07/17/17 22:30 07/18/17 04:15 07/18/17 11:20 Serum Osmolality 306 MOSM/KG 307 MOSM/KG 301 MOSM/KG White Blood Count 9.6 TH/MM3 Red Blood Count 3.41 MIL/MM3 Hemoglobin 10.8 GM/DL Hematocrit 32.1 % Mean Corpuscular Volume 94.2 FL Mean Corpuscular Hemoglobin 31.6 PG Mean Corpuscular Hemoglobin Concent 33.6 % Red Cell Distribution Width 13.5 % Platelet Count 264 TH/MM3 Mean Platelet Volume 8.0 FL Neutrophils (%) (Auto) 80.9 % Lymphocytes (%) (Auto) 13.7 % Monocytes (%) (Auto) 5.1 % Eosinophils (%) (Auto) 0.0 % Basophils (%) (Auto) 0.3 % Neutrophils # (Auto) 7.8 TH/MM3 Lymphocytes # (Auto) 1.3 TH/MM3 Monocytes # (Auto) 0.5 TH/MM3 Eosinophils # (Auto) 0.0 TH/MM3 Basophils # (Auto) 0.0 TH/MM3 CBC Comment DIFF FINAL Differential Comment Blood Urea Nitrogen 8 MG/DL Creatinine 0.67 MG/DL Random Glucose 105 MG/DL Calcium Level 8.2 MG/DL Sodium Level 145 MEQ/L Potassium Level 4.0 MEQ/L Chloride Level 114 MEQ/L Carbon Dioxide Level 23.3 MEQ/L Anion Gap 8 MEQ/L Estimat Glomerular Filtration Rate 89 ML/MIN (Jonh Sanchez) Medical Decision Making Impression and Plan Impression: Postoperative Diagnosis: Left basal ganglia 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 Questionable receptive aphasia. Bradycardia. Reviewed labs for today. Anaemia. Sodium 145. POD #1 () s/p: Stereotactic biopsy of left basal ganglia brain mass Plan: Primary & critical care management per Hospitalist. Neuro checks. Stat CT brain for any decline in neuro status. Will follow pathology. (Jonh Sanchez) Attending Statement The exam, history, and the medical decision-making described in the above note were completed with the assistance of the mid-level provider. I reviewed and agree with the findings presented. I attest that I had a [id number] encounter with the patient on the same day, and personally performed and documented my assessment and findings in the medical record. She is awake alert today. Her daughter interprets for her. She follows commands well. Her speech is clear She moves all extremities with good strength. Her daughter indicates that the patient still has mild receptive speech deficit , but not increased postoperative. Continue [facility] neurochecks Pathology pending (Fortino Hernández MD) Jonh Sanchez Jul 18, 2017 13:01 Fortino Hernández MD Jul 18, 2017 19:44
[2017-07-18] MEDS: levETIRAcetam INJ 500 MG in SODIUM CHLORIDE 0.9% INJ 100 ML IV SCH (13:10)
[2017-07-18] MEDS: QUEtiapine FUMARATE 25 MG TAB PO SCH (21:27)
[2017-07-18] MEDS: ATORVASTATIN 40 MG TAB PO SCH (21:27)
[2017-07-19] VITALS (9 sets, daily range): BP systolic 111–135; BP diastolic 53–80; PULSE 47–106; RESP 16–26; TEMP 97.8–98.8; O2SAT 92–100
[2017-07-19] MEDS: levETIRAcetam INJ 500 MG in SODIUM CHLORIDE 0.9% INJ 100 ML IV SCH ×3 (01:15→12:39)
[2017-07-19] MEDS: MANNITOL 12.5 GM/50 ML VIAL IV SCH ×5 (01:15→19:20)
[2017-07-19] MEDS: DEXAMETHASONE SOD PHOS 4 MG/ML VIAL IV PUSH SCH ×4 (01:15→18:00)
[2017-07-19] MEDS: MORPHINE SULFATE 4 MG/ML INJ IV PUSH PRN (02:22)
[2017-07-19] MEDS: RESP: ALBUTEROL 2.5 MG/IPRATROPIUM 0.5 MG NEB (SCH) NEB ×4 (03:36→20:01)
[2017-07-19] MEDS: CHLORHEXIDINE GLUCONATE 2 % 1 PACK (2 CLOTHS) TOP SCH (04:00)
[2017-07-19] MEDS: FOSPHENYTOIN SODIUM 100 MG PE/2 ML VIAL IV SCH ×3 (06:23→21:54)
[2017-07-19] MEDS: NS + KCL 20 MEQ INJ 1,000 ML IV SCH ×2 (06:25→11:53)
[2017-07-19] MEDS: CHLORHEXIDINE 0.12% (ORAL KIT) 15 ML CUP MT SCH ×2 (08:00→21:56)
[2017-07-19] MEDS: SODIUM CHLOR 0.9% 1000 ML INJ 1,000 ML IV SCH ×2 (08:08→21:55)
[2017-07-19] MEDS: DOCUSATE SODIUM 100 MG CAP PO SCH ×2 (09:00→21:00)
[2017-07-19] MEDS: LEVOTHYROXINE SODIUM 150 MCG TAB PO SCH (09:57)
[2017-07-19] MEDS: CITALOPRAM HYDROBROMIDE 20 MG TAB PO SCH (09:57)
[2017-07-19] MEDS: PANTOPRAZOLE SOD 40 MG DELAYED RELEASE TAB PO SCH (09:57)
[2017-07-19] MEDS: FERROUS SULFATE 325 MG (65 MG ELEMENTAL IRON) TAB PO SCH (09:58)
[2017-07-19] MEDS: ALLOPURINOL 100 MG TAB PO SCH ×2 (09:58→21:56)
[2017-07-19] MEDS: FAMOTIDINE 20 MG TAB PO SCH ×2 (09:58→21:55)
[2017-07-19] MEDS: DOCUSATE SODIUM 50 MG/SENNA 8.6 MG TAB PO SCH ×2 (09:58→21:55)
--- NOTE | 2017-07-19 11:59 | HHI.NSPN ---
(Jonh Sanchez) History Chief Complaint: None (Jonh Sanchez) Interval History 07/15: Ms. Sun is a 61-year-old female who is brought to the emergency room at [facility] for increasing confusion, slurred speech, and right-sided weakness for four days. CT of the head showed a brain mass with midline shift of 6.8 mm with differential including subacute hemorrhage versus neoplastic process. The patient was accepted in transfer by Dr. Todd for neurosurgical evaluation. No seizure activity reported. No tonic-clonic movements. No tongue biting. No incontinence of stool or urine. She remains slightly confused and does not know why she is here at the hospital. She indicates that she's been feeling fine. She denies any fever, chills, nausea, vomiting, or cough. She moves both upper and lower extremities without any focal weakness. She denies any sensory loss. She denies any headaches nausea vomiting. Denies any incontinence or stool or urine. Neurosurgical consultation was requested 07/17: The patient went to the operating room for a stereotactic biopsy of a left basal ganglia mass. Post-operatively she was admitted to the ISC unit for further care and monitoring. 07/18: This morning the patient is awake and alert in bed. She does have a headache when she is laid flat, otherwise she does not. She is having some abdominal pain. She does have some confusion still. She does have some weakness to the right side extremities. 07/19: When seen the patient is awake and alert visiting with family and watching TV. She denies any headache, dizziness or visual difficulty. She also has no pain, numbness or tingling to the extremities. She is spontaneously and purposefully moving her extremities and following commands. She is weak to the right side extremities but her muscle strength appears normal on the left. Sensation is intact to light touch. The daughter reports that earlier this morning the patient stated she was in [place] which is where she lives. Previously she has not been able to answer that question. (Jonh Sanchez) Exam Results 4/20/18 07/17/17 07/18/17 07/18/17 07/19/17 07/19/17 06:00 18:00 06:00 18:00 06:00 18:00 Intake Total 0 ml 2259 ml 1205 ml 2945 ml Output Total 850 ml 1100 ml 1250 ml 3275 ml Balance -850 ml 1159 ml -45 ml -330 ml Intake Oral 0 ml 440 ml IV Total 1059 ml 1205 ml 2505 ml Other 1200 ml Output Urine Total 850 ml 875 ml 1250 ml 3275 ml Gastric Drainage Total 0 ml 220 ml Estimated Blood Loss 5 ml # Bowel Movements 0 0 0 2 Vital Signs Date Time Temp Pulse Resp B/P (MAP) Pulse Ox O2 Delivery O2 Flow Rate FiO2 07/19/17 10:00 99 Nasal Cannula 2.00 07/19/17 08:00 98.1 47 16 124/60 (81) 98 07/19/17 07:00 94 Room Air 07/19/17 04:00 98.8 72 26 111/53 (72) 93 07/19/17 00:00 98.5 51 17 116/56 (76) 98 07/18/17 23:00 51 07/18/17 20:52 100 Nasal Cannula 2.00 07/18/17 20:00 98.6 52 19 117/58 (77) 99 07/18/17 19:00 Room Air 98 07/18/17 16:00 98.2 52 22 117/58 (77) 99 07/18/17 15:00 48 07/18/17 12:00 98.4 50 18 103/56 (72) 95 07/18/17 12:00 50 07/18/17 09:16 94 21 07/18/17 08:15 Room Air 95 07/18/17 08:00 56 07/18/17 08:00 98.3 54 20 103/55 (71) 95 Arterial Line 07/18/17 06:42 52 07/18/17 04:00 98.3 56 20 100 134/70 (91) 07/18/17 00:00 98.2 58 20 97 122/62 (82) 07/17/17 23:00 66 07/17/17 22:27 100 Nasal Cannula 1.50 07/17/17 20:00 98.2 60 18 97 122/54 (76) 07/17/17 19:00 Nasal Cannula 2.00 97 07/17/17 16:15 Nasal Cannula 2.00 100 07/17/17 16:12 99 Nasal Cannula 2.00 07/17/17 16:12 99 Nasal Cannula 2 07/17/17 16:00 40 07/17/17 16:00 64 07/17/17 16:00 97.9 64 20 100 148/65 (92) 07/17/17 15:16 40 07/17/17 15:10 40 07/17/17 14:00 55 07/17/17 12:00 65 07/17/17 12:00 40 07/17/17 12:00 98.1 65 20 100 142/63 (89) 07/17/17 11:55 99 40 07/17/17 11:20 100 100 07/17/17 08:00 40 07/17/17 08:00 98.2 50 20 114/68 (83) 99 07/17/17 07:50 99 40 07/17/17 07:00 57 07/17/17 07:00 100 Mechanical Ventilator 40 07/17/17 06:49 100 40 07/17/17 04:00 97.7 54 20 109/60 (76) 100 07/17/17 04:00 40 07/17/17 03:43 98 40 07/17/17 00:00 97.9 44 20 150/53 (85) 100 07/17/17 00:00 40 07/16/17 23:00 46 07/16/17 20:34 99 40 07/16/17 20:30 94/55 (68) 07/16/17 20:00 97.9 42 20 85/52 (63) 100 07/16/17 19:00 Mechanical Ventilator 50 07/16/17 18:00 49 07/16/17 16:00 97.7 40 20 114/68 (83) 100 07/16/17 16:00 45 07/16/17 16:00 50 07/16/17 15:39 100 50 07/16/17 14:00 42 18 13:15 100 07/16/17 13:15 49 07/16/17 13:15 97.5 49 20 164/96 (118) 100 (Jonh Sanchez) Physical Examination CONSTITUTIONAL: Awake & alert in bed visiting w/family. Affect essentially normal, readily interacts. No apparent distress. HEENT: Normocephalic, slight right facial droop. Left frontal surgical site well -approximated w/chip w/o any evident drainage, erythema or streaking noted. PERRLA 3 mm brisk, EOMI. MMM & pink, tongue midline to protrusion. MUSCULOSKELETAL: Moves all extremities spontaneously & purposefully. No evident clubbing or deformity noted. NEUROLOGICAL: Awake & alert, oriented to person, year & being in the hospital but thinks it is May. . Speech clear. Still with some receptive aphasia. Follows some simple commands. Mild right side facial droop, o/w CN II through XII appear grossly intact. PERRRLA 3 mm brisk, EOMI. Tongue midline to protrusion. Sensation appears to be intact to light touch to all extremities. Muscle strength strong to left side and weaker to the right. (Jonh Sanchez) Lab, Micro, Other Results Recent Impressions Head CT 07/17/17 0000 Signed Impressions: Service Date/Time: Monday, July 17, 2017 11:28 - CONCLUSION: 1. Status post biopsy of left brain mass. Orlando Tavarez MD Chest X-Ray 07/16/17 1430 Signed Impressions: Service Date/Time: June 18:32 - CONCLUSION: Endotracheal tube tip is at the grupo. Slight retraction suggested. Israel Ruelas MD Laboratory Tests Test 07/16/17 12:40 07/16/17 14:32 07/16/17 17:25 07/16/17 19:40 Blood Gas Puncture Site LT RADIAL RT RADIAL Blood Gas Patient Temperature 98.6 98.6 Blood Gas HCO3 27 mmol/L 24 mmol/L Blood Gas Base Excess 2.4 mmol/L 1.7 mmol/L Blood Gas Oxygen Saturation 95 % 97 % Arterial Blood pH 7.40 7.52 Arterial Blood Partial Pressure CO2 45 mmHg 30 mmHg Arterial Blood Partial Pressure O2 81 mmHg 106 mmHg Arterial Blood Oxygen Content 16.3 Vol % 17.2 Vol % Arterial Blood Carboxyhemoglobin 1.1 % 1.2 % Arterial Blood Methemoglobin 0.9 % 1.0 % Blood Gas Hemoglobin 12.3 G/DL 12.6 G/DL Oxygen Delivery Device NASAL CANNULA VENTILATOR Blood Gas Liter Flow 2 L/M Prothrombin Time 10.7 SEC Prothromb Time International Ratio 1.1 RATIO Activated Partial Thromboplast Time 23.7 SEC Blood Urea Nitrogen 24 MG/DL Creatinine 0.90 MG/DL Random Glucose 116 MG/DL Calcium Level 9.6 MG/DL Phosphorus Level 2.3 MG/DL Magnesium Level 2.4 MG/DL Sodium Level 141 MEQ/L Potassium Level 3.5 MEQ/L Chloride Level 106 MEQ/L Carbon Dioxide Level 26.0 MEQ/L Anion Gap 9 MEQ/L Estimat Glomerular Filtration Rate 63 ML/MIN Blood Gas Ventilator Setting PRVC/20/600/+5/50 Blood Gas Inspired Oxygen 50 % Serum Osmolality 311 MOSM/KG Test 07/16/17 23:45 07/17/17 05:20 07/17/17 11:45 07/17/17 18:25 Serum Osmolality 310 MOSM/KG 309 MOSM/KG 309 MOSM/KG 306 MOSM/KG White Blood Count 8.1 TH/MM3 Red Blood Count 3.87 MIL/MM3 Hemoglobin 12.1 GM/DL Hematocrit 36.1 % Mean Corpuscular Volume 93.2 FL Mean Corpuscular Hemoglobin 31.2 PG Mean Corpuscular Hemoglobin Concent 33.5 % Red Cell Distribution Width 13.4 % Platelet Count 287 TH/MM3 Mean Platelet Volume 8.1 FL Neutrophils (%) (Auto) 84.1 % Lymphocytes (%) (Auto) 11.0 % Monocytes (%) (Auto) 4.8 % Eosinophils (%) (Auto) 0.0 % Basophils (%) (Auto) 0.1 % Neutrophils # (Auto) 6.8 TH/MM3 Lymphocytes # (Auto) 0.9 TH/MM3 Monocytes # (Auto) 0.4 TH/MM3 Eosinophils # (Auto) 0.0 TH/MM3 Basophils # (Auto) 0.0 TH/MM3 CBC Comment DIFF FINAL Differential Comment Blood Urea Nitrogen 18 MG/DL Creatinine 0.94 MG/DL Random Glucose 140 MG/DL Total Protein 7.3 GM/DL Albumin 3.6 GM/DL Calcium Level 8.5 MG/DL Alkaline Phosphatase 78 U/L Aspartate Amino Transf (AST/SGOT) 22 U/L Alanine Aminotransferase (ALT/SGPT) 21 U/L Total Bilirubin 0.6 MG/DL Sodium Level 144 MEQ/L Potassium Level 3.5 MEQ/L Chloride Level 113 MEQ/L Carbon Dioxide Level 23.2 MEQ/L Anion Gap 8 MEQ/L Estimat Glomerular Filtration Rate 60 ML/MIN Phenytoin (Dilantin) Level 6.4 MCG/ML Test 07/17/17 22:30 07/18/17 04:15 07/18/17 11:20 07/18/17 17:58 Serum Osmolality 307 MOSM/KG 301 MOSM/KG 296 MOSM/KG 299 MOSM/KG White Blood Count 9.6 TH/MM3 Red Blood Count 3.41 MIL/MM3 Hemoglobin 10.8 GM/DL Hematocrit 32.1 % Mean Corpuscular Volume 94.2 FL Mean Corpuscular Hemoglobin 31.6 PG Mean Corpuscular Hemoglobin Concent 33.6 % Red Cell Distribution Width 13.5 % Platelet Count 264 TH/MM3 Mean Platelet Volume 8.0 FL Neutrophils (%) (Auto) 80.9 % Lymphocytes (%) (Auto) 13.7 % Monocytes (%) (Auto) 5.1 % Eosinophils (%) (Auto) 0.0 % Basophils (%) (Auto) 0.3 % Neutrophils # (Auto) 7.8 TH/MM3 Lymphocytes # (Auto) 1.3 TH/MM3 Monocytes # (Auto) 0.5 TH/MM3 Eosinophils # (Auto) 0.0 TH/MM3 Basophils # (Auto) 0.0 TH/MM3 CBC Comment DIFF FINAL Differential Comment Blood Urea Nitrogen 8 MG/DL Creatinine 0.67 MG/DL Random Glucose 105 MG/DL Calcium Level 8.2 MG/DL Sodium Level 145 MEQ/L Potassium Level 4.0 MEQ/L Chloride Level 114 MEQ/L Carbon Dioxide Level 23.3 MEQ/L Anion Gap 8 MEQ/L Estimat Glomerular Filtration Rate 89 ML/MIN Test 07/18/17 23:35 07/19/17 05:00 Serum Osmolality 300 MOSM/KG 301 MOSM/KG (Jonh Sanchez) Medical Decision Making Impression and Plan Impression: 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 Still with some confusion & receptive aphasia. Right-sided weakness but normal strength on left, sensation intact to both. Bradycardia. Pathology pending. CT brain demonstrates post biopsy left brain mass. POD #2 () s/p: Stereotactic biopsy of left basal ganglia brain mass Plan: Primary & critical care management per Hospitalist. Neuro checks. Stat CT brain for any decline in neuro status. Will follow pathology. (Jonh Sanchez) Attending Statement The exam, history, and the medical decision-making described in the above note were completed with the assistance of the mid-level provider. I reviewed and agree with the findings presented. I attest that I had a [id number] encounter with the patient on the same day, and personally performed and documented my assessment and findings in the medical record. (Fortino Hernández MD) Jonh Sanchez Jul 19, 2017 11:59 Fortino Hernández MD Jul 22, 2017 15:13
--- NOTE | 2017-07-19 14:09 | HHI.PR ---
Subjective Remarks , Seen and examined, pleasant, awake open eyes, no nausea or vomiting, slight headache, scalp suture looks clean Objective Vitals Vital Signs Date Time Temp Pulse Resp B/P (MAP) Pulse Ox O2 Delivery O2 Flow Rate FiO2 07/19/17 10:00 99 Nasal Cannula 2.00 07/19/17 08:00 98.1 47 16 124/60 (81) 98 07/19/17 07:00 94 Room Air 07/19/17 04:00 98.8 72 26 111/53 (72) 93 07/19/17 00:00 98.5 51 17 116/56 (76) 98 07/18/17 23:00 51 07/18/17 20:52 100 Nasal Cannula 2.00 07/18/17 20:00 98.6 52 19 117/58 (77) 99 07/18/17 19:00 Room Air 98 07/18/17 16:00 98.2 52 22 117/58 (77) 99 07/18/17 15:00 48 I/O 07/18/17 07/18/17 07/18/17 07/19/17 07/19/17 07/19/17 07:00 15:00 23:00 07:00 15:00 23:00 Intake Total 155 ml 2705 ml 240 ml Output Total 1250 ml 1350 ml 1925 ml Balance -1095 ml 1355 ml -1685 ml Intake Oral 200 ml 240 ml IV Total 155 ml 2505 ml Output Urine Total 1250 ml 1350 ml 1925 ml # Bowel Movements 0 2 0 Result Diagram: 07/18/17 0415 07/18/17 0415 Objective Remarks GENERAL: This is a well-nourished, well-developed patient, in no apparent distress. CARDIOVASCULAR: RRR, no gallops, or rubs. RESPIRATORY: Fair air entry bilaterally. No W, R, or R GASTROINTESTINAL: Abdomen soft, non-tender, nondistended. Positive bowel sounds MUSCULOSKELETAL: Extremities without clubbing, cyanosis, or edema. Pedal pulses appreciated NEUROLOGICAL: Awake and alert. Able to speak in [place] A/P Assessment and Plan 07/16: Ms. Sun is a 61-year-old female who was brought to the emergency room at [facility] in [place] for increasing confusion , slurred speech, and right-sided weakness for four days. CT of the head was performed and showed a brain mass with midline shift of 6.8 mm with differential including subacute hemorrhage versus neoplastic process. The patient was accepted in transfer by Dr. Barth for neurosurgical evaluation here at [facility] in [place]. Patient was reportedly awake and alert till around 12:45 PM today. Subsequently around 1 PM rapid response team was called as patient became unresponsive. FS glucose 105. I reached patient's bedside immediately on being notified by Dr. Calderón regarding change in neurologic status. In view of high suspicion for intracranial hemorrhage patient was transferred emergently to the ICU and intubated and placed on mechanical ventilation for airway protection and a stat head CT was ordered. 25 g mannitol IV stat was administered prior to intubation. Dr. Sutton was informed regarding change in neurologic status as well and will be evaluating head CT to decide further intervention. 07/17: Sedated, arousable, orally intubated on mechanical ventilation. For brain biopsy today. 07/18: Stereotactic brain biopsy performed yesterday. Procedure was well tolerated and blood pressure control is acceptable. No seizures overnight. Awaiting pathology report. 07/19: Laying in bed bed, open eyes, she is Tu[place] speaker, granddaughter at the bedside translate, slight headache no other issues, continue neuro check and follow with neurosurgeon 61-year-old female with: Encephalopathy Left basal ganglia mass with vasogenic edema and midline shift Acute respiratory failure on mechanical ventilation for airway protection Hypothyroidism h/o CVA with possible seizure activity at the time of the CVA - no seizures since and does not take AEDs Hypertension Osteoporosis Asthma Obstructive sleep apnea Bipolar disorder GERD Hyperlipidemia Plan Neuro: Sedation with propofol. Head CT done on 07/16 with no significant change compared to MRI brain per radiology. EEG did not show any seizure activity. Anticonvulsant started on 07/16: fosphenytoin loading followed by maintenance dose. Continue Decadron 4 million g IV every 6 hourly. Received mannitol 25 g IV 1 dose. continue mannitol every 6 hourly. Scheduled for biopsy of brain mass for 07/17 -done. Cardiovascular: Bradycardia noted. Remains hypertensive. We will use dopamine if needed if patient develops hypotension secondary to bradycardia. Pulmonary: Intubated for airway protection. Continue mechanical ventilation. End-tidal CO2 monitoring. Vent bundle, bronchodilators as needed. GI/liver: N.p.o. for now. OG tube placed for medications. Renal/: IV hydration, strict intake output, monitor and replete electrolytes, follow BN creatinine. Awaiting pathology report. Antibiotic prophylaxis per neurosurgery Heme: Follow CBC and coags. Endocrine: SSI for glycemic control if needed. Ruled out hypoglycemia during rapid response. Prophylaxis: PPI/SCDs. No subcu heparin or Lovenox until cleared by neurosurgery. Manuel Aguilar MD Jul 19, 2017 14:09
[2017-07-19] MEDS: ATORVASTATIN 40 MG TAB PO SCH (21:56)
[2017-07-19] MEDS: QUEtiapine FUMARATE 25 MG TAB PO SCH (22:00)
[2017-07-20] VITALS (14 sets, daily range): BP systolic 96–138; BP diastolic 57–70; PULSE 51–66; RESP 16–30; TEMP 98.1–98.7; O2SAT 88–96
[2017-07-20] MEDS: DEXAMETHASONE SOD PHOS 4 MG/ML VIAL IV PUSH SCH ×4 (00:25→19:02)
[2017-07-20] MEDS: levETIRAcetam INJ 500 MG in SODIUM CHLORIDE 0.9% INJ 100 ML IV SCH ×2 (00:25→12:40)
[2017-07-20] MEDS: CHLORHEXIDINE GLUCONATE 2 % 1 PACK (2 CLOTHS) TOP SCH (01:37)
[2017-07-20] MEDS: RESP: ALBUTEROL 2.5 MG/IPRATROPIUM 0.5 MG NEB (SCH) NEB ×3 (03:38→15:50)
[2017-07-20] MEDS: FOSPHENYTOIN SODIUM 100 MG PE/2 ML VIAL IV SCH ×3 (05:42→21:03)
[2017-07-20] MEDS: LEVOTHYROXINE SODIUM 150 MCG TAB PO SCH (06:04)
[2017-07-20] MEDS: MANNITOL 12.5 GM/50 ML VIAL IV SCH ×4 (06:32→19:57)
[2017-07-20] MEDS: CHLORHEXIDINE 0.12% (ORAL KIT) 15 ML CUP MT SCH ×2 (08:00→20:00)
[2017-07-20] MEDS: FAMOTIDINE 20 MG TAB PO SCH ×2 (09:44→20:20)
[2017-07-20] MEDS: DOCUSATE SODIUM 100 MG CAP PO SCH ×2 (09:44→20:19)
[2017-07-20] MEDS: MORPHINE SULFATE 4 MG/ML INJ IV PUSH PRN (09:44)
[2017-07-20] MEDS: DOCUSATE SODIUM 50 MG/SENNA 8.6 MG TAB PO SCH ×2 (09:44→20:20)
[2017-07-20] MEDS: CITALOPRAM HYDROBROMIDE 20 MG TAB PO SCH (09:44)
[2017-07-20] MEDS: ALLOPURINOL 100 MG TAB PO SCH ×2 (09:44→20:20)
[2017-07-20] MEDS: PANTOPRAZOLE SOD 40 MG DELAYED RELEASE TAB PO SCH (09:44)
[2017-07-20] MEDS: ADULT - PICC FLUSH PRN FOR HEPARIN ALLERGY OR HIT DIAGNOSIS IV FLUSH (09:45)
[2017-07-20] MEDS: FERROUS SULFATE 325 MG (65 MG ELEMENTAL IRON) TAB PO SCH (09:45)
[2017-07-20] MEDS: SODIUM CHLOR 0.9% 1000 ML INJ 1,000 ML IV SCH (10:48)
--- NOTE | 2017-07-20 12:56 | HHI.NSPN ---
(Ruby Renteria) Note Status Status: Progress Note (Ruby Renteria) Interval History Interval History 07/15: Ms. Sun is a 61-year-old female who is brought to the emergency room at [facility] for increasing confusion, slurred speech, and right-sided weakness for four days. CT of the head showed a brain mass with midline shift of 6.8 mm with differential including subacute hemorrhage versus neoplastic process. The patient was accepted in transfer by Dr. Todd for neurosurgical evaluation. No seizure activity reported. No tonic-clonic movements. No tongue biting. No incontinence of stool or urine. She remains slightly confused and does not know why she is here at the hospital. She indicates that she's been feeling fine. She denies any fever, chills, nausea, vomiting, or cough. She moves both upper and lower extremities without any focal weakness. She denies any sensory loss. She denies any headaches nausea vomiting. Denies any incontinence or stool or urine. Neurosurgical consultation was requested 07/17: The patient went to the operating room for a stereotactic biopsy of a left basal ganglia mass. Post-operatively she was admitted to the ISC unit for further care and monitoring. 07/18: This morning the patient is awake and alert in bed. She does have a headache when she is laid flat, otherwise she does not. She is having some abdominal pain. She does have some confusion still. She does have some weakness to the right side extremities. 07/19: When seen the patient is awake and alert visiting with family and watching TV. She denies any headache, dizziness or visual difficulty. She also has no pain, numbness or tingling to the extremities. She is spontaneously and purposefully moving her extremities and following commands. She is weak to the right side extremities but her muscle strength appears normal on the left. Sensation is intact to light touch. The daughter reports that earlier this morning the patient stated she was in [place] which is where she lives. Previously she has not been able to answer that question. 07/20: Doing well, weight, conversing in Polish. Stable right hemiparesis. (Ruby Renteria) Labs, Micro, & Vital Signs Results Date Time Temp Pulse Resp B/P (MAP) Pulse Ox O2 Delivery O2 Flow Rate FiO2 07/20/17 10:49 21 07/20/17 08:41 95 07/20/17 07:00 92 Room Air 07/20/17 06:00 56 07/20/17 04:00 98.4 60 16 133/65 (87) 90 07/20/17 04:00 60 07/20/17 02:00 51 07/20/17 00:00 98.3 53 20 138/70 (92) 94 07/20/17 00:00 53 07/19/17 22:00 57 07/19/17 20:01 100 Nasal Cannula 2.00 07/19/17 20:00 54 07/19/17 20:00 98.2 54 24 135/78 (97) 92 07/19/17 19:00 94 Room Air 07/19/17 16:00 98.3 106 20 124/80 (95) 95 Constitutional Vital Signs Date Time Temp Pulse Resp B/P (MAP) Pulse Ox O2 Delivery O2 Flow Rate FiO2 07/20/17 10:49 21 07/20/17 08:41 95 07/20/17 07:00 92 Room Air 07/20/17 06:00 56 07/20/17 04:00 98.4 60 16 133/65 (87) 90 07/20/17 04:00 60 07/20/17 02:00 51 07/20/17 00:00 98.3 53 20 138/70 (92) 94 07/20/17 00:00 53 07/19/17 22:00 57 07/19/17 20:01 100 Nasal Cannula 2.00 07/19/17 20:00 54 07/19/17 20:00 98.2 54 24 135/78 (97) 92 07/19/17 19:00 94 Room Air 07/19/17 16:00 98.3 106 20 124/80 (95) 95 (Ruby Renteria) Physical Exam CONSTITUTIONAL: Awake & alert in bed visiting w/family. Affect essentially normal, readily interacts. No apparent distress. HEENT: Normocephalic, slight right facial droop. Left frontal surgical site well -approximated w/chip w/o any evident drainage, erythema or streaking noted. PERRLA 3 mm brisk, EOMI. MMM & pink, tongue midline to protrusion. MUSCULOSKELETAL: Moves all extremities spontaneously & purposefully. No evident clubbing or deformity noted. NEUROLOGICAL: Awake & alert, oriented to person, year & being in the hospital but thinks it is May. . Speech clear. Still with some receptive aphasia. Follows some simple commands. Mild right side facial droop, o/w CN II through XII appear grossly intact. PERRRLA 3 mm brisk, EOMI. Tongue midline to protrusion. Sensation appears to be intact to light touch to all extremities. Muscle strength strong to left side and weaker to the right. (Ruby Renteria) Medications Current Medications Current Medications Medications (Trade) Dose Ordered Sig/Thaddeus Route PRN Reason Start Time Stop Time Status Last Admin Dose Admin Acetaminophen (Tylenol) 650 mg Q4H PRN PO TEMP > 100.4 07/14/17 22:15 Naloxone HCl (Narcan Inj) 0.4 mg UNSCH PRN IV PUSH SEE LABEL COMMENTS 07/14/17 22:15 Senna/Docusate Sodium (Maddy-Colace) 1 tab BID PO 07/15/17 09:00 07/20/17 09:44 Magnesium Hydroxide (Milk Of Magnesia Liq) 30 ml Q12H PRN PO Mild constipation 07/14/17 22:15 Sennosides (Senokot) 17.2 mg Q12H PRN PO Moderate constipation 07/14/17 22:15 Bisacodyl (Dulcolax Supp) 10 mg DAILY PRN RECTAL SEVERE CONSITIPATION/ IF NPO 07/14/17 22:15 Lactulose (Lactulose Liq) 30 ml DAILY PRN PO SEVERE CONSITIPATION/ IF PO 07/14/17 22:15 Albuterol Sulfate (Albuterol Neb) 2.5 mg Q4HR NEB PRN NEB sob/wheezing 07/14/17 22:30 07/14/17 23:41 Dexamethasone Sodium Phosphate (Decadron Inj) 4 mg Q6HR IV PUSH 07/15/17 00:45 07/20/17 12:29 Allopurinol (Zyloprim) 100 mg BID PO 07/15/17 09:00 07/20/17 09:44 Atorvastatin Calcium (Lipitor) 40 mg HS PO 07/15/17 21:00 07/19/17 21:56 Citalopram Hydrobromide (CeleXA) 20 mg DAILY PO 07/15/17 09:00 07/20/17 09:44 Levothyroxine Sodium (Synthroid) 150 mcg DAILY@0700 PO 07/15/17 07:00 07/20/17 06:04 Quetiapine Fumarate (SEROquel) 25 mg HS PO 07/15/17 21:00 07/19/17 22:00 Ferrous Sulfate (Ferrous Sulfate) 65 mg DAILY PO 07/15/17 09:00 07/20/17 09:45 Lorazepam (Ativan Inj) 2 mg Q10M PRN IV PUSH SEE LABEL COMMENTS 07/15/17 01:45 Sodium Chloride 1,000 ml @ 75 mls/hr [id number] IV 07/16/17 13:28 07/20/17 10:48 Albuterol/ Ipratropium (Duoneb Neb) 1 ampule Q6HR NEB NEB 07/16/17 16:00 07/20/17 08:41 Albuterol/ Ipratropium (Duoneb Neb) 1 ampule Q4HR NEB PRN INH SHORTNESS OF BREATH 07/16/17 13:30 Chlorhexidine Gluconate (Peridex 0.12% Liq) 15 ml BID@08,20 MT 07/16/17 20:00 07/20/17 08:00 Famotidine (Pepcid) 20 mg BID PO 07/16/17 21:00 07/20/17 09:44 Miscellaneous Information 1 [id number] XX 07/16/17 13:30 Chlorhexidine Gluconate (Chlorhexidine 2% Cloth) 3 pack Taper DAILY@04 TOP 07/17/17 04:00 07/13/18 03:59 07/17/17 00:40 Chlorhexidine Gluconate (Chlorhexidine 2% Cloth) 3 pack UNSCH PRN TOP HYGIENIC CARE 07/16/17 13:30 Propofol 100 ml @ 2.553 mls/ hr TITRATE PRN IV SEDATION 07/16/17 13:30 07/17/17 07:20 Dopamine HCl/ Dextrose 500 ml @ 9.574 mls/ hr TITRATE PRN IV Blood Pressure Management 07/16/17 14:30 Terbutaline Sulfate (Brethine Inj) 1 mg UNSCH PRN SQ For Extravasation 07/16/17 14:15 Fosphenytoin Sodium (Cerebyx Inj) 100 mgpe Q8HR IV 07/16/17 22:00 07/20/17 12:30 Mannitol (Mannitol Inj) 12.5 gm Q6HR IV 07/16/17 18:00 07/20/17 06:32 Heparin Sodium (Porcine) (Heparin Central Flush) See Protocol DAILY IV FLUSH 07/17/17 09:00 07/20/17 09:45 Heparin Sodium (Porcine) (Heparin Central Flush) See Protocol UNSCH PRN IV FLUSH SEE PROTOCOL TABLE 07/16/17 19:30 Sodium Chloride (NS Flush) UNSCH PRN IV FLUSH SEE PROTOCOL TABLE 07/16/17 19:30 Sodium Chloride (NS Flush) See Protocol UNSCH PRN IV FLUSH FLUSH AFTER USING IV ACCESS 07/16/17 19:30 07/20/17 09:45 Sodium Chloride (NS Flush) SEE PROTOCOL UNSCH PRN IV FLUSH SEE PROTOCOL TABLE 07/16/17 19:30 Levetriacetam 500 mg/Sodium Chloride 105 ml @ 400 mls/hr Q12H IV 07/17/17 12:00 07/20/17 12:40 Docusate Sodium (Colace) 100 mg BID PO 07/17/17 21:00 07/20/17 09:44 Pantoprazole Sodium (Protonix) 40 mg DAILY PO 07/18/17 09:00 07/20/17 09:44 Pantoprazole Sodium (Protonix Inj) 40 mg DAILY PRN IVP SEE LABEL COMMENTS 07/18/17 09:00 Ondansetron HCl (Zofran Inj) 4 mg Q6H PRN IV PUSH NAUSEA OR VOMITING 07/17/17 10:45 Calcium Gluconate (Calcium Gluconate Inj) 1 gm UNSCH PRN IV SEE LABEL COMMENTS 07/17/17 10:45 Potassium Chloride 100 ml @ 50 mls/hr UNSCH PRN IV POTASSIUM LESS THAN 4 07/17/17 11:45 Magnesium Sulfate 4 gm/Sodium Chloride 108 ml @ 54 mls/hr UNSCH PRN IV MAGNESIUM LESS THAN 2 07/17/17 11:45 Acetaminophen/ Hydrocodone Bitart ([place] 10-325 Mg) 1 tab Q4H PRN PO PAIN SCALE 1 TO 5 07/17/17 11:45 Acetaminophen/ Hydrocodone Bitart ([place] 10-325 Mg) 2 tab Q4H PRN PO PAIN SCALE 6 TO 10 07/17/17 11:45 Morphine Sulfate (Morphine Inj) 2 mg Q2H PRN IV PUSH PAIN SCALE 1 TO 6 07/17/17 11:45 Morphine Sulfate (Morphine Inj) 4 mg Q2H PRN IV PUSH PAIN SCALE 7 TO 10 07/17/17 11:45 07/20/17 09:44 Acetaminophen (Tylenol) 650 mg Q4H PRN PO TEMPERATURE > 101.5 F 07/17/17 11:45 (Ruby Renteria) Medical Decision Making MDM Remarks 61-year-old female 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 I reviewed and agree with the findings presented. I attest that I had a [id number] encounter with the patient on the same day, and personally performed and documented my assessment and findings in the medical record. (Miguel Sutton MD) Ruby Renteria Jul 20, 2017 12:56 Miguel Sutton MD Jul 20, 2017 13:58
[2017-07-20] MEDS: ACETAMINOPHEN/HYDROcodone 325 MG/10 MG TAB PO PRN (13:23)
--- NOTE | 2017-07-20 19:01 | HHI.PR ---
Subjective Remarks patient resting comfortably in bed, no acute issue overnight discussed with the nurse Discussed with the granddaughter, she wants to know if patient will be competent enough to handle her financial issues Objective Vitals Vital Signs Date Time Temp Pulse Resp B/P (MAP) Pulse Ox O2 Delivery O2 Flow Rate FiO2 07/20/17 18:00 57 07/20/17 16:00 63 07/20/17 16:00 98.4 63 20 111/69 (83) 95 07/20/17 14:24 19 07/20/17 14:00 58 07/20/17 12:00 98.1 62 19 96/57 (70) 96 07/20/17 12:00 62 07/20/17 10:49 21 07/20/17 10:00 66 07/20/17 08:41 95 07/20/17 08:00 98.7 54 30 125/70 (88) 88 07/20/17 08:00 54 07/20/17 07:00 92 Room Air 07/20/17 06:00 56 07/20/17 04:00 98.4 60 16 133/65 (87) 90 07/20/17 04:00 60 07/20/17 02:00 51 07/20/17 00:00 98.3 53 20 138/70 (92) 94 07/20/17 00:00 53 07/19/17 22:00 57 07/19/17 20:01 100 Nasal Cannula 2.00 07/19/17 20:00 54 07/19/17 20:00 98.2 54 24 135/78 (97) 92 I/O 07/19/17 07/19/17 07/19/17 07/20/17 07/20/17 07/20/17 07:00 15:00 23:00 07:00 15:00 23:00 Intake Total 240 ml 480 ml 420 ml Output Total 1925 ml 2500 ml 1950 ml 1004 ml Balance -1685 ml -2020 ml -1950 ml -584 ml Intake Oral 240 ml 480 ml 420 ml Output Urine Total 1925 ml 2500 ml 1950 ml 1004 ml # Bowel Movements 0 0 Result Diagram: 07/18/17 0415 07/19/17 7270 Objective Remarks GENERAL: This is a well-nourished, well-developed patient, in no apparent distress. CARDIOVASCULAR: RRR, no gallops, or rubs. RESPIRATORY: Fair air entry bilaterally. No W, R, or R GASTROINTESTINAL: Abdomen soft, non-tender, nondistended. Positive bowel sounds MUSCULOSKELETAL: Extremities without clubbing, cyanosis, or edema. Pedal pulses appreciated NEUROLOGICAL: Awake and alert. Able to speak in Iranian A/P Assessment and Plan 07/16: Ms. Sun is a 61-year-old female who was brought to the emergency room at [facility] in [place] for increasing confusion , slurred speech, and right-sided weakness for four days. CT of the head was performed and showed a brain mass with midline shift of 6.8 mm with differential including subacute hemorrhage versus neoplastic process. The patient was accepted in transfer by Dr. Barth for neurosurgical evaluation here at [facility] in [place]. Patient was reportedly awake and alert till around 12:45 PM today. Subsequently around 1 PM rapid response team was called as patient became unresponsive. FS glucose 105. I reached patient's bedside immediately on being notified by Dr. Calderón regarding change in neurologic status. In view of high suspicion for intracranial hemorrhage patient was transferred emergently to the ICU and intubated and placed on mechanical ventilation for airway protection and a stat head CT was ordered. 25 g mannitol IV stat was administered prior to intubation. Dr. Sutton was informed regarding change in neurologic status as well and will be evaluating head CT to decide further intervention. 07/17: Sedated, arousable, orally intubated on mechanical ventilation. For brain biopsy today. 07/18: Stereotactic brain biopsy performed yesterday. Procedure was well tolerated and blood pressure control is acceptable. No seizures overnight. Awaiting pathology report. 07/19: Laying in bed bed, open eyes, she is Iranian speaker, granddaughter at the bedside translate, slight headache no other issues, continue neuro check and follow with neurosurgeon 07/20: Stable, no overnight issue, continue her check, transfer to floor when okay with neurosurgery 61-year-old female with: Encephalopathy Left basal ganglia mass with vasogenic edema and midline shift Acute respiratory failure on mechanical ventilation for airway protection Hypothyroidism h/o CVA with possible seizure activity at the time of the CVA - no seizures since and does not take AEDs Hypertension Osteoporosis Asthma Obstructive sleep apnea Bipolar disorder GERD Hyperlipidemia Plan Neuro: Sedation with propofol. Head CT done on 07/16 with no significant change compared to MRI brain per radiology. EEG did not show any seizure activity. Anticonvulsant started on 07/16: fosphenytoin loading followed by maintenance dose. Continue Decadron 4 million g IV every 6 hourly. Received mannitol 25 g IV 1 dose. continue mannitol every 6 hourly. Scheduled for biopsy of brain mass for 07/17 -done. Cardiovascular: Bradycardia noted. Remains hypertensive. We will use dopamine if needed if patient develops hypotension secondary to bradycardia. Pulmonary: Intubated for airway protection. Continue mechanical ventilation. End-tidal CO2 monitoring. Vent bundle, bronchodilators as needed. GI/liver: N.p.o. for now. OG tube placed for medications. Renal/: IV hydration, strict intake output, monitor and replete electrolytes, follow BN creatinine. Awaiting pathology report. Antibiotic prophylaxis per neurosurgery Heme: Follow CBC and coags. Endocrine: SSI for glycemic control if needed. Ruled out hypoglycemia during rapid response. Prophylaxis: PPI/SCDs. No subcu heparin or Lovenox until cleared by neurosurgery. Maunel Aguilar MD Jul 20, 2017 19:01
[2017-07-20] MEDS: ATORVASTATIN 40 MG TAB PO SCH (20:19)
[2017-07-20] MEDS: QUEtiapine FUMARATE 25 MG TAB PO SCH (20:20)
[2017-07-21] VITALS (12 sets, daily range): BP systolic 97–140; BP diastolic 59–80; PULSE 48–58; RESP 14–36; TEMP 98–99.6; O2SAT 94–96
[2017-07-21] MEDS: MANNITOL 12.5 GM/50 ML VIAL IV SCH ×2 (00:08→06:21)
[2017-07-21] MEDS: levETIRAcetam INJ 500 MG in SODIUM CHLORIDE 0.9% INJ 100 ML IV SCH ×3 (00:08→23:45)
[2017-07-21] MEDS: DEXAMETHASONE SOD PHOS 4 MG/ML VIAL IV PUSH SCH ×5 (00:09→23:45)
[2017-07-21] MEDS: SODIUM CHLOR 0.9% 1000 ML INJ 1,000 ML IV SCH ×2 (01:45→13:17)
[2017-07-21] MEDS: CHLORHEXIDINE GLUCONATE 2 % 1 PACK (2 CLOTHS) TOP SCH (03:37)
[2017-07-21] MEDS: FOSPHENYTOIN SODIUM 100 MG PE/2 ML VIAL IV SCH ×3 (06:20→21:38)
[2017-07-21] MEDS: LEVOTHYROXINE SODIUM 150 MCG TAB PO SCH (06:21)
[2017-07-21] MEDS: CHLORHEXIDINE 0.12% (ORAL KIT) 15 ML CUP MT SCH ×2 (08:00→20:00)
[2017-07-21] MEDS: CITALOPRAM HYDROBROMIDE 20 MG TAB PO SCH (08:33)
[2017-07-21] MEDS: ALLOPURINOL 100 MG TAB PO SCH ×2 (08:34→21:38)
[2017-07-21] MEDS: FERROUS SULFATE 325 MG (65 MG ELEMENTAL IRON) TAB PO SCH (08:34)
[2017-07-21] MEDS: DOCUSATE SODIUM 50 MG/SENNA 8.6 MG TAB PO SCH ×2 (08:34→21:38)
[2017-07-21] MEDS: DOCUSATE SODIUM 100 MG CAP PO SCH ×2 (08:34→21:38)
[2017-07-21] MEDS: PANTOPRAZOLE SOD 40 MG DELAYED RELEASE TAB PO SCH (08:34)
[2017-07-21] MEDS: FAMOTIDINE 20 MG TAB PO SCH ×2 (08:35→21:38)
[2017-07-21] MEDS: ADULT - PICC FLUSH PRN FOR HEPARIN ALLERGY OR HIT DIAGNOSIS IV FLUSH (08:36)
[2017-07-21] MEDS: ACETAMINOPHEN/HYDROcodone 325 MG/10 MG TAB PO PRN ×2 (08:42→13:16)
--- NOTE | 2017-07-21 13:56 | PD.PSY.CON ---
Provisional Diagnosis Admission Date Jul 14, 2017 at 21:20 [place] I. Major neurocognitive disorder, history of bipolar disorder [place] II. Deferred [place] III. 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, she has 5 kids, supported by [employer], with psychiatric history of bipolar disorder, depression, anxiety, 2 previous psychiatric hospitalizations, 2 previous suicide attempts, she is on Celexa 20 mg, Seroquel 25 mg twice daily, clonazepam 0.5 mg twice daily, with medical history of hypothyroidism, asthma, osteoporosis, GERD, COPD, CVA, seizures, who was brought to the emergency room at [facility] in [place] for increasing confusion, slurred speech, and right-sided weakness for four days. CT of the head was performed and showed a brain mass with midline shift of 6.8 mm with differential including subacute hemorrhage versus neoplastic process. The patient was accepted in transfer by Dr. Barth for neurosurgical evaluation here at [facility] in [place]. She was consulted to psychiatry to help with her decision-making capacity to participate in treatment and discharge planning. On psychiatric evaluation the patient is calm , cooperative. She said that she feels much better, denies distress, she denies pain, patient reports good mood, she denies depressive symptoms, denies anhedonia, denies hopelessness, denies helplessness, denies worthlessness, she denies suicidal and homicidal ideation, she denies visual and auditory hallucinations. The patient reports that the reason she is here is because she has been feeling that she has pneumonia. When I asked her about her medical conditions, the patient was unable to recall them, stating "please ask to my daughter". The patient is diffusely confused, she can have a pleasant conversation, were multiple confabulatory statements, which is disoriented in time and place. She says that she does not know exactly what she is, and we are in March 29 1930. She does not know who is the apparel designer. The patient is unable to express a clear understanding and appreciation of her medical condition at this moment. Review of Systems Constitutional: DENIES: Diaphoretic episodes, Fatigue, Fever, Weight gain, Weight loss, Chills, Dizziness, Change in appetite, Night Sweats Endocrine: DENIES: Abnorml menstrual pattern, Heat/cold intolerance, Polydipsia , Polyuria, Polyphagia Eyes: DENIES: Blurred vision, Diplopia, Eye inflammation, Eye pain, Vision loss , Photosensitivity, Double Vision Ears, nose, mouth, throat: DENIES: Tinnitus, Hearing loss, Vertigo, Nasal discharge, Oral lesions, Throat pain, Hoarseness, Ear Pain, Running Nose, Epistaxis, Sinus Pain, Toothache, Odynophagia Respiratory: DENIES: Apneas, Cough, Snoring, Wheezing, Hemoptysis, Sputum production, Shortness of breath Cardiovascular: DENIES: Chest pain, Palpitations, Syncope, Dyspnea on Exertion , PND, Lower Extremity Edema, Orthopnea, Claudication Gastrointestinal: DENIES: Abdominal pain, Black stools, Bloody stools, Constipation, Diarrhea, Nausea, Vomiting, Difficulty Swallowing, Anorexia Genitourinary: DENIES: Abnormal vaginal bleeding, Dysmenorrhea, Dyspareunia, Sexual dysfunction, Urinary frequency, Urinary incontinence, Urgency, Hematuria , Dysuria, Nocturia, Vaginal discharge Musculoskeletal: DENIES: Joint pain, Muscle aches, Stiffness, Joint Swelling, Back pain, Neck pain Integumentary: DENIES: Abnormal pigmentation, Pruritus, Rash, Nail changes, Breast masses, Breast skin changes, Nipple discharge Hematologic/lymphatic: DENIES: Bruising, Lymphadenopathy Immunologic/allergic: DENIES: Eczema, Urticaria Neurologic: DENIES: Abnormal gait, Headache, Localized weakness, Paresthesias, Seizures, Speech Problems, Tremor, Poor Balance Psychiatric: DENIES: Anxiety, Confusion, Mood changes, Depression, Hallucinations, Agitation, Suicidal Ideation, Homicidal Ideation, Delusions Past Family Social History Uncoded Allergies: cotton (Allergy, Mild, Itching, 07/14/17) Reported Medications Albuterol 8.5 GM Inh (Proair Hfa 8.5 GM Inh) 90 Mcg/Act Aer, 2 PUFF INH Q4-6H Y for SHORTNESS OF BREATH, #1 INHALER 0 Refills 108 mcg/actuation 07/15/17 Albuterol Sulfate (Proair Hfa) 90 Mcg Hfa.aer.ad 07/15/17 Omeprazole (Omeprazole) 20 Mg Tab, 20 MG PO DAILY, #30 TAB 0 Refills 07/15/17 Quetiapine (Quetiapine) 25 Mg Tab, 25 MG PO HS, #30 TAB 0 Refills 07/14/17 Multiple Vitamins W/ Minerals (Centrum) 1 Chew, 1 TAB CHEW DAILY for Nutritional Supplement, TAB 0 Refills 07/14/17 Levothyroxine (Levothyroxine) 150 Mcg Tab, 150 MCG PO DAILY for Thyroid, #30 TAB 0 Refills 07/14/17 Folic Acid (Folic Acid) 0.4 Mg Tab, 1 MG PO HS for Nutritional Supplement, TAB 0 Refills 07/14/17 Ferrous Sulfate ER (Ferrous Sulfate ER) 140 Mg (45 Mg Iron) Tab, 65 MG PO DAILY for Nutritional Supplement, #30 TAB 0 Refills 07/14/17 Citalopram (Celexa) 20 Mg Tab, 20 MG PO DAILY for Control Depression, #30 TAB 0 Refills 07/14/17 Atorvastatin (Atorvastatin) 40 Mg Tab, 40 MG PO HS for Cholesterol Management, # 30 TAB 0 Refills 07/14/17 Allopurinol (Allopurinol) 100 Mg Tab, 100 MG PO BID, #30 TAB 0 Refills 07/14/17 Acyclovir (Acyclovir) 400 Mg Tab, 400 MG PO THURSDAY, , THURSDAY, TAB 0 Refills 07/14/17 Acetaminophen (Tylenol) 325 Mg Tab, 500 MG PO Q4H, TAB 0 Refills 07/14/17 Current Medications Medications (Trade) Dose Ordered Sig/Thaddeus Route Start Time Stop Time Status Last Admin (Tylenol) 650 mg Q4H PRN PO 07/14/17 22:15 (Narcan Inj) 0.4 mg UNSCH PRN IV PUSH 07/14/17 22:15 (Maddy-Colace) 1 tab BID PO 07/15/17 09:00 07/21/17 08:34 (Milk Of Magnesia Liq) 30 ml Q12H PRN PO 07/14/17 22:15 (Senokot) 17.2 mg Q12H PRN PO 07/14/17 22:15 (Dulcolax Supp) 10 mg DAILY PRN RECTAL 07/14/17 22:15 (Lactulose Liq) 30 ml DAILY PRN PO 07/14/17 22:15 (Albuterol Neb) 2.5 mg Q4HR NEB PRN NEB 07/14/17 22:30 07/14/17 23:41 (Zyloprim) 100 mg BID PO 07/15/17 09:00 07/21/17 08:34 (Lipitor) 40 mg HS PO 07/15/17 21:00 07/20/17 20:19 (CeleXA) 20 mg DAILY PO 07/15/17 09:00 07/21/17 08:33 (Synthroid) 150 mcg DAILY@0700 PO 07/15/17 07:00 07/21/17 06:21 (SEROquel) 25 mg HS PO 07/15/17 21:00 07/20/17 20:20 (Ferrous Sulfate) 65 mg DAILY PO 07/15/17 09:00 07/21/17 08:34 (Ativan Inj) 2 mg Q10M PRN IV PUSH 07/15/17 01:45 Sodium Chloride 1,000 ml @ 75 mls/hr [id number] IV 07/16/17 13:28 07/21/17 13:17 (Duoneb Neb) 1 ampule Q4HR NEB PRN INH 07/16/17 13:30 07/20/17 20:13 (Peridex 0.12% Liq) 15 ml BID@08,20 MT 07/16/17 20:00 07/20/17 08:00 (Pepcid) 20 mg BID PO 07/16/17 21:00 07/21/17 08:35 Miscellaneous Information 1 [id number] XX 07/16/17 13:30 (Chlorhexidine 2% Cloth) 3 pack Taper DAILY@04 TOP 07/17/17 04:00 07/13/18 03:59 07/17/17 00:40 (Chlorhexidine 2% Cloth) 3 pack UNSCH PRN TOP 07/16/17 13:30 Propofol 100 ml @ 2.553 mls/ hr TITRATE PRN IV 07/16/17 13:30 07/17/17 07:20 Dopamine HCl/ Dextrose 500 ml @ 9.574 mls/ hr TITRATE PRN IV 07/16/17 14:30 (Brethine Inj) 1 mg UNSCH PRN SQ 07/16/17 14:15 (Cerebyx Inj) 100 mgpe Q8HR IV 07/16/17 22:00 07/21/17 13:17 (Heparin Central Flush) See Protocol DAILY IV FLUSH 07/17/17 09:00 07/21/17 08:35 (Heparin Central Flush) See Protocol UNSCH PRN IV FLUSH 07/16/17 19:30 (NS Flush) UNSCH PRN IV FLUSH 07/16/17 19:30 (NS Flush) See Protocol UNSCH PRN IV FLUSH 07/16/17 19:30 07/21/17 08:36 (NS Flush) SEE PROTOCOL UNSCH PRN IV FLUSH 07/16/17 19:30 Levetriacetam 500 mg/Sodium Chloride 105 ml @ 400 mls/hr Q12H IV 07/17/17 12:00 07/21/17 13:16 (Colace) 100 mg BID PO 07/17/17 21:00 07/21/17 08:34 (Protonix) 40 mg DAILY PO 07/18/17 09:00 07/21/17 08:34 (Protonix Inj) 40 mg DAILY PRN IVP 07/18/17 09:00 (Zofran Inj) 4 mg Q6H PRN IV PUSH 07/17/17 10:45 (Calcium Gluconate Inj) 1 gm UNSCH PRN IV 07/17/17 10:45 Potassium Chloride 100 ml @ 50 mls/hr UNSCH PRN IV 07/17/17 11:45 Magnesium Sulfate 4 gm/Sodium Chloride 108 ml @ 54 mls/hr UNSCH PRN IV 07/17/17 11:45 ([place] 10-325 Mg) 1 tab Q4H PRN PO 07/17/17 11:45 07/21/17 13:16 ([place] 10-325 Mg) 2 tab Q4H PRN PO 07/17/17 11:45 07/21/17 08:42 (Morphine Inj) 2 mg Q2H PRN IV PUSH 07/17/17 11:45 (Morphine Inj) 4 mg Q2H PRN IV PUSH 07/17/17 11:45 07/20/17 09:44 (Tylenol) 650 mg Q4H PRN PO 07/17/17 11:45 (Decadron Inj) 3 mg Q6HR IV PUSH 07/20/17 18:00 07/21/17 13:17 Family Psych History No family psychiatric history Social History Patient was born and raised in [place], she lives in [facility] with her , she has 5 kids, supported by [employer], her highest level of education is ninth grade Patient's Strengths (min. 2) Family support Physical Exam No tremors, no EPS, no withdrawal, no psychomotor retardation or retardation Vital Signs Vital Signs Date Time Temp Pulse Resp B/P (MAP) Pulse Ox O2 Delivery O2 Flow Rate FiO2 07/21/17 09:42 16 07/21/17 07:00 94 Nasal Cannula 2.00 07/21/17 06:00 53 07/21/17 04:00 99.6 140/79 (99) 07/20/17 20:14 21 I/O 07/21/17 07/21/17 07/22/17 08:00 16:00 00:00 Output Total 2625 ml Balance -2625 ml Lab Results Test 07/20/17 17:20 07/20/17 23:00 07/21/17 05:10 Serum Osmolality 298 MOSM/KG 296 MOSM/KG 297 MOSM/KG Mental Status Examination Appearance: Appropriate Consciousness: Alert Orientation: Person Motor Activity: Normal gait Speech: Unremarkable Language: Adequate Fund of Knowledge: Adequate Attention and Concentration: Adequate Memory: Impaired Mood: Appropriate Affect: Appropriate Thought Process & Associations: Loose associations Thought Content: Appropriate Hallucination Type: None Delusion Type: None Suicidal Ideation: No Suicidal Plan: No Suicidal Intention: No Homicidal Ideation: No Homicidal Plan: No Homicidal Intention: No Insight: Fair Judgment: Impulsive Assessment & Plan Problem List: (1) Dementia without behavioral disturbance ICD Codes: F03.90 - Unspecified dementia without behavioral disturbance Assessment & Plan: Patient does not present any neuropsychiatric symptoms that require immediate psychiatric intervention. There is no evidence of acute, concerning or significant symptomatology of depression, anxiety, joe or psychosis. The patient denies suicidal and homicidal ideation, visual and auditory hallucinations. The patient has history of bipolar disorder, 2 previous psychiatric hospitalizations, 2 previous suicidal attempt but she has been in remission now for several years. She is on Celexa 20 mg, Seroquel 25 mg twice daily, clonazepam 0.5 mg twice daily prescribed by PCP. She seems to be stable in this psychotropic regimen, no significant side effects. The patient does present impairment in medical condition, especially in immediate recall, recent memory, abstraction, executive function and judgment. However, she seems to consider a good language and semantic memory. She might benefit of Namenda 10-20 mg daily as well Aricept 5-10 mg daily. Since the patient is completely disoriented in time and place, unable to even verbalize a choice regarding her medical conditions and treatment, unable to express a clear understanding and appreciation of medical condition and consequences of no following medical directions, the patient does not have decision-making capacity to participate in treatment plan and refused medication or placement. Healthcare by proxi should be involved in this decisions. Consider consulting palliative care to help with goals of care Consult appreciated. Assessment & Plan Estimated LOS: Matt Rodriguez MD Jul 21, 2017 13:56
--- NOTE | 2017-07-21 15:36 | HHI.PR ---
Subjective Remarks Patient resting comfortably in bed She is non-Wallisian speaker Per the family she found confused Patient seen by psychiatry Dr. Rodrigues she is not competent for decision- making will need approximately to be involved Objective Vitals Vital Signs Date Time Temp Pulse Resp B/P (MAP) Pulse Ox O2 Delivery O2 Flow Rate FiO2 07/21/17 14:16 22 07/21/17 09:42 16 07/21/17 08:00 50 07/21/17 07:00 94 Nasal Cannula 2.00 07/21/17 06:00 53 07/21/17 04:00 57 07/21/17 04:00 99.6 57 28 140/79 (99) 95 07/21/17 02:00 56 07/21/17 00:00 58 07/21/17 00:00 98.9 58 15 119/63 (81) 94 07/20/17 22:00 63 07/20/17 20:14 92 21 07/20/17 20:00 58 07/20/17 20:00 98.7 58 21 102/66 (78) 92 07/20/17 19:00 92 Room Air 07/20/17 18:00 57 07/20/17 16:00 63 07/20/17 16:00 98.4 63 20 111/69 (83) 95 I/O 07/20/17 07/20/17 07/20/17 07/21/17 07/21/17 07/21/17 07:00 15:00 23:00 07:00 15:00 23:00 Intake Total 420 ml Output Total 1950 ml 1004 ml 2625 ml Balance -1950 ml -584 ml -2625 ml Intake Oral 420 ml Output Urine Total 1950 ml 1004 ml 2625 ml # Bowel Movements 0 0 Result Diagram: 07/18/17 0415 07/19/17 2348 Objective Remarks GENERAL: This is a well-nourished, well-developed patient, in no apparent distress. CARDIOVASCULAR: RRR, no gallops, or rubs. RESPIRATORY: Fair air entry bilaterally. No W, R, or R GASTROINTESTINAL: Abdomen soft, non-tender, nondistended. Positive bowel sounds MUSCULOSKELETAL: Extremities without clubbing, cyanosis, or edema. Pedal pulses appreciated NEUROLOGICAL: Awake and alert. Able to speak in Luxembourgish A/P Assessment and Plan 07/16: Ms. Sun is a 61-year-old female who was brought to the emergency room at [facility] in [place] for increasing confusion , slurred speech, and right-sided weakness for four days. CT of the head was performed and showed a brain mass with midline shift of 6.8 mm with differential including subacute hemorrhage versus neoplastic process. The patient was accepted in transfer by Dr. Barth for neurosurgical evaluation here at [facility] in [place]. Patient was reportedly awake and alert till around 12:45 PM today. Subsequently around 1 PM rapid response team was called as patient became unresponsive. FS glucose 105. I reached patient's bedside immediately on being notified by Dr. Calderón regarding change in neurologic status. In view of high suspicion for intracranial hemorrhage patient was transferred emergently to the ICU and intubated and placed on mechanical ventilation for airway protection and a stat head CT was ordered. 25 g mannitol IV stat was administered prior to intubation. Dr. Sutton was informed regarding change in neurologic status as well and will be evaluating head CT to decide further intervention. 07/21: Clinically stable, is not oriented, appreciate psychiatry consultation patient is not competent for decision making, follow psych meds recommendation, neurology following 61-year-old female with: Encephalopathy Left basal ganglia mass with vasogenic edema and midline shift Acute respiratory failure on mechanical ventilation for airway protection Hypothyroidism h/o CVA with possible seizure activity at the time of the CVA - no seizures since and does not take AEDs Hypertension Osteoporosis Asthma Obstructive sleep apnea Bipolar disorder GERD Hyperlipidemia Plan Neuro: Sedation with propofol. Head CT done on 07/16 with no significant change compared to MRI brain per radiology. EEG did not show any seizure activity. Anticonvulsant started on 07/16: fosphenytoin loading followed by maintenance dose. Continue Decadron 4 million g IV every 6 hourly. Received mannitol 25 g IV 1 dose. continue mannitol every 6 hourly. Scheduled for biopsy of brain mass for 07/17 -done. Cardiovascular: Bradycardia noted. Remains hypertensive. We will use dopamine if needed if patient develops hypotension secondary to bradycardia. Pulmonary: Intubated for airway protection. Continue mechanical ventilation. End-tidal CO2 monitoring. Vent bundle, bronchodilators as needed. GI/liver: N.p.o. for now. OG tube placed for medications. Renal/: IV hydration, strict intake output, monitor and replete electrolytes, follow BN creatinine. Awaiting pathology report. Antibiotic prophylaxis per neurosurgery Heme: Follow CBC and coags. Endocrine: SSI for glycemic control if needed. Ruled out hypoglycemia during rapid response. Prophylaxis: PPI/SCDs. No subcu heparin or Lovenox until cleared by neurosurgery. Manuel Aguilar MD Jul 21, 2017 15:36
[2017-07-21] MEDS: ONDANSETRON HCL 4 MG/2 ML VIAL IV PUSH PRN (16:37)
[2017-07-21] MEDS: ATORVASTATIN 40 MG TAB PO SCH (21:38)
[2017-07-21] MEDS: QUEtiapine FUMARATE 25 MG TAB PO SCH (21:38)
[2017-07-22] VITALS (10 sets, daily range): BP systolic 107–174; BP diastolic 63–83; PULSE 48–56; RESP 13–33; TEMP 97.9–99.1; O2SAT 88–96
[2017-07-22] MEDS: CHLORHEXIDINE GLUCONATE 2 % 1 PACK (2 CLOTHS) TOP SCH (03:36)
[2017-07-22] MEDS: SODIUM CHLOR 0.9% 1000 ML INJ 1,000 ML IV SCH ×2 (03:36→16:30)
[2017-07-22] MEDS: FOSPHENYTOIN SODIUM 100 MG PE/2 ML VIAL IV SCH ×3 (05:55→21:40)
[2017-07-22] MEDS: DEXAMETHASONE SOD PHOS 4 MG/ML VIAL IV PUSH SCH ×3 (05:55→17:23)
[2017-07-22] MEDS: LEVOTHYROXINE SODIUM 150 MCG TAB PO SCH (06:01)
[2017-07-22] MEDS: CHLORHEXIDINE 0.12% (ORAL KIT) 15 ML CUP MT SCH ×2 (08:00→20:00)
--- NOTE | 2017-07-22 09:47 | HHI.PR ---
Subjective Remarks 07/16: Ms. Sun is a 61-year-old female who was brought to the emergency room at [facility] in [place] for increasing confusion , slurred speech, and right-sided weakness for four days. CT of the head was performed and showed a brain mass with midline shift of 6.8 mm with differential including subacute hemorrhage versus neoplastic process. The patient was accepted in transfer by Dr. Barth for neurosurgical evaluation here at [facility] in [place]. Patient was reportedly awake and alert till around 12:45 PM today. Subsequently around 1 PM rapid response team was called as patient became unresponsive. FS glucose 105. I reached patient's bedside immediately on being notified by Dr. Calderón regarding change in neurologic status. In view of high suspicion for intracranial hemorrhage patient was transferred emergently to the ICU and intubated and placed on mechanical ventilation for airway protection and a stat head CT was ordered. 25 g mannitol IV stat was administered prior to intubation. Dr. Sutton was informed regarding change in neurologic status as well and will be evaluating head CT to decide further intervention. 07/17: Sedated, arousable, orally intubated on mechanical ventilation. For brain biopsy today. 07/18: Stereotactic brain biopsy performed yesterday. Procedure was well tolerated and blood pressure control is acceptable. No seizures overnight. Awaiting pathology report. - Seen and examined, pleasant, awake open eyes, no nausea or vomiting, slight headache, scalp suture looks clean - patient resting comfortably in bed, no acute issue overnight discussed with the nurse Discussed with the granddaughter, she wants to know if patient will be competent enough to handle her financial issues - Patient resting comfortably in bed She is non-Greenlandic speaker Per the family she found confused Patient seen by psychiatry Dr. Rodrigues she is not competent for decision- making will need approximately to be involved -25 cleared by neurosurgery Can follow-up with oncology Dr. Maxi HERNANDEZ in [place] TRANSFER BACK TO [facility] FOR HELP WITH PLACEMENT DC BACK TO [facility] TODAY DW RN AND PT AND FAMILY DEEMED INCOMPETENT PER PSYCHIATRY Objective Vitals Vital Signs Date Time Temp Pulse Resp B/P (MAP) Pulse Ox O2 Delivery O2 Flow Rate FiO2 07/22/17 06:00 50 07/22/17 04:00 50 07/22/17 04:00 98.7 50 18 155/83 (107) 95 07/22/17 02:00 50 07/22/17 00:00 98.1 49 19 146/78 (100) 95 07/22/17 00:00 49 07/21/17 22:00 48 07/21/17 20:00 98.0 50 21 128/80 (96) 95 07/21/17 20:00 50 07/21/17 19:00 95 Nasal Cannula 2.00 07/21/17 18:00 52 07/21/17 16:00 49 07/21/17 16:00 98.9 49 14 140/79 (99) 96 07/21/17 14:16 22 07/21/17 14:00 52 07/21/17 12:00 52 07/21/17 12:00 98.1 52 21 97/59 (72) 95 07/21/17 10:00 58 07/21/17 09:42 16 I/O 07/21/17 07/21/17 07/21/17 07/22/17 07/22/17 07/22/17 07:00 15:00 23:00 07:00 15:00 23:00 Intake Total 600 ml Output Total 2625 ml 2100 ml 3050 ml Balance -2625 ml -1500 ml -3050 ml Intake Oral 600 ml Output Urine Total 2625 ml 2100 ml 3050 ml # Bowel Movements 0 0 Result Diagram: 07/18/17 0415 07/19/17 2348 Other Results Laboratory Tests Test 07/19/17 12:00 07/19/17 18:30 07/19/17 23:48 07/20/17 05:51 Serum Osmolality 294 MOSM/KG 302 MOSM/KG 298 MOSM/KG 298 MOSM/KG Sodium Level 142 MEQ/L Test 07/20/17 11:00 07/20/17 17:20 07/20/17 23:00 07/21/17 05:10 Serum Osmolality 296 MOSM/KG 298 MOSM/KG 296 MOSM/KG 297 MOSM/KG Imaging Last Impressions Head CT 07/17/17 0000 Signed Impressions: Service Date/Time: Monday, July 17, 2017 11:28 - CONCLUSION: 1. Status post biopsy of left brain mass. Orlando Tavarez MD Chest X-Ray 07/16/17 1430 Signed Impressions: Service Date/Time: June 18:32 - CONCLUSION: Endotracheal tube tip is at the grupo. Slight retraction suggested. Israel Ruelas MD Brain MRI 07/15/17 0000 Signed Impressions: Service Date/Time: Saturday, July 15, 2017 15:42 - CONCLUSION: Left basal ganglia mass with moderate associated vasogenic edema. Mild-moderate hemispheric mass effect. Serpiginous enhancement in the contralateral right mid to high convexity frontal region. Israel Ruelas MD Objective Remarks GENERAL: Awake and alert only speaks Hebrew-daughter translating-patient has been deemed to be not competent to make her medical decisions per psychiatry SKIN: Warm and dry. HEAD: Atraumatic. Normocephalic. EYES: Pupils equal and round. No scleral icterus. No injection or drainage. Extraocular muscles intact ENT: No nasal bleeding or discharge. Mucous membranes pink and moist. Tongue is midline NECK: Trachea midline. No JVD. Supple CARDIOVASCULAR: Regular rate and rhythm. S1-S2 no S3 or S4 no heave or thrill or rub or gallop RESPIRATORY: No accessory muscle use. Clear to auscultation. Breath sounds equal bilaterally. GASTROINTESTINAL: Abdomen soft, non-tender, nondistended. Hepatic and splenic margins not palpable. MUSCULOSKELETAL: Extremities without clubbing, cyanosis, or edema. No obvious deformities. NEUROLOGICAL: Awake and alert. No obvious cranial nerve deficits. Motor grossly within normal limits. Five out of 5 muscle strength in the arms and legs. Normal speech. PSYCHIATRIC: INAppropriate mood and affect; insight and judgment ABnormal. 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 The lesions had abnormal signal intensity and and characteristics consistent with a possible neoplastic, inflammatory, or infectious process. A stereotactic biopsy of the lesions was indicated. The [id number] details of the procedure, its indications, alternatives, risks and potential complications were fully discussed with the patient. The patient fully understood. All questions were answered. No guarantees were given. The patient voiced requesting the procedure and provided informed consents. The patient was offered the alternative of not having aggressive management. DETAILS OF THE SURGICAL PROCEDURE Preoperative planning Prior to the surgery the patient underwent an MRI of the brain according to the stereotactic protocol. The information from the MRI scan was transferred to the operating room via the hospital network and the preoperative planning of the lesion was made. A julia was made at the patients operative site according to the hospital policy. Surgical positioning The patient was then brought to the operating room. After induction of general anesthesia endotracheal intubation was performed. Bkilateral carlos hose and sequential compression devices were placed and kept throughout the procedure. The patient was positioned supine on a 3080 table over a soft mattress. All pressure points were carefully padded with an egg crate mattress. The eyes were tapped shut after ointment was applied by the anesthesiologist to prevent corneal abrasion. A Shannon hugger was placed over the exposed lower body to maintain control of the core body temperature. The head was held in rigid fixation using the Bravo head of ict. Intraoperative registration The rigid body was attached to the Bravo headholder. Intraoperative registration was then performed with the BrainCheers. The lesion was located in the three planes, sagittal, axial and coronal. An entry point was selected in the scalp. Surgical Approach and stereotactic biopsy The skin was prepped and draped in the usual sterile fashion. A linear incision in the left frontal region selected by the planning was outlined. The area was infiltrated with 1% lidocaine with epinephrine 1:100,000 dilution. A skin incision was made with a #10 blade. Small subgaleal bleeders were controlled with a bipolar a small self-retaining retractor was placed in the incision. The fascia and muscle were incised with a Bovie and retracted at each side. The Midas Freddy was brought into the field and a bur hole was made with an AM-8 drill bit. The duramatter was coagulated with a bipolar and opening increased for pressure and a very small corticotomy performed. At this point of the procedure the stereotactic biopsy arm was brought into the field and secured to the head of ict. The dental assistant was brought into the field, and the trajectory on the biopsy arm was created following the previously selected trajectory. Then, a stereotactic needle was carefully inserted into the brain at the center of the lesion and by gentle aspiration two initial biopsies were obtained, one of which was sent to the lab for frozen section, while the second kept for permanent histological annalysis. Meanwhile, additional specimens were obtained for permanent histologic analysis. At this point in the procedure , after waiting for awhile, the frozen section was called in and reported as lymphoma. The biopsy needle was carefully removed and the stereotactic device was removed. The incision was irrigated with a large amount of saline. A piece of Gelfoam was placed over the surface of the brain and a bur hole cover was placed. The incision was closed in layers. 3-0 Vicryl with interrupted sutures were used to close the fascial layers and galea. The skin was closed with chip. A sterile dressing was applied. At the end of the procedure the sponge, needle and instrument counts were all correct. Estimated blood loss was minimal. No blood transfusion was given. The patient received preoperative prophylactic antibiotics. No intraoperative complications occurred. The patient was transferred to the recovery room in stable condition. Miguel Sutton MD Jul 17, 2017 17:40 Medications and IVs Current Medications Sodium Chloride (NS Flush) 2 ml UNSCH PRN IV FLUSH FLUSH AFTER USING IV ACCESS ; Start 07/14/17 at 22:15; Stop 07/16/17 at 19:23; Status DC Sodium Chloride (NS Flush) 2 ml BID IV FLUSH Last administered on 07/16/17at 09: 09; Start 07/15/17 at 09:00; Stop 07/16/17 at 19:23; Status DC Acetaminophen (Tylenol) 650 mg Q4H PRN PO TEMP > 100.4; Start 07/14/17 at 22:15 Ondansetron HCl (Zofran Inj) 4 mg Q6H PRN IVP NAUSEA OR VOMITING; Start at 22:15; Stop 07/17/17 at 11:45; Status DC Naloxone HCl (Narcan Inj) 0.4 mg UNSCH PRN IV PUSH SEE LABEL COMMENTS; Start at 22:15 Senna/Docusate Sodium (Maddy-Colace) 1 tab BID PO Last administered on at 21:38; Start 07/15/17 at 09:00 Magnesium Hydroxide (Milk Of Magnesia Liq) 30 ml Q12H PRN PO Mild constipation ; Start 07/14/17 at 22:15 Sennosides (Senokot) 17.2 mg Q12H PRN PO Moderate constipation; Start 07/14/17 at 22:15 Bisacodyl (Dulcolax Supp) 10 mg DAILY PRN RECTAL SEVERE CONSITIPATION/ IF NPO ; Start 07/14/17 at 22:15 Lactulose (Lactulose Liq) 30 ml DAILY PRN PO SEVERE CONSITIPATION/ IF PO; Start 07/14/17 at 22:15 Albuterol Sulfate (Albuterol Neb) 2.5 mg Q4HR NEB PRN NEB sob/wheezing Last administered on 07/14/17at 23:41; Start 07/14/17 at 22:30 Dexamethasone Sodium Phosphate (Decadron Inj) 4 mg Q6HR IV PUSH Last administered on 07/20/17at 12:29; Start 07/15/17 at 00:45; Stop 07/20/17 at 14:08 ; Status DC Allopurinol (Zyloprim) 100 mg BID PO Last administered on 07/21/17 21:38; Start 07/15/17 at 09:00 Atorvastatin Calcium (Lipitor) 40 mg HS PO Last administered on 07/21/17 21:38 ; Start 07/15/17 at 21:00 Citalopram Hydrobromide (CeleXA) 20 mg DAILY PO Last administered on 07/21/17 08:33; Start 07/15/17 at 09:00 Levothyroxine Sodium (Synthroid) 150 mcg DAILY@0700 PO Last administered on 06:01; Start 07/15/17 at 07:00 Quetiapine Fumarate (SEROquel) 25 mg HS PO Last administered on 07/21/17 21:38 ; Start 07/15/17 at 21:00 Ferrous Sulfate (Ferrous Sulfate) 65 mg DAILY PO Last administered on 08:34; Start 07/15/17 at 09:00 Pantoprazole Sodium (Protonix) 20 mg DAILY PO Last administered on 07/16/17at 09 :09; Start 07/15/17 at 09:00; Stop 07/17/17 at 11:45; Status DC Lorazepam (Ativan Inj) 2 mg Q10M PRN IV PUSH SEE LABEL COMMENTS; Start at 01:45 Gadodiamide (Omniscan Pf Inj) 20 ml STK-MED ONCE IVCONTRAST Last administered on 07/15/17at 15:30; Start 07/15/17 at 15:30; Stop 07/16/17 at 07:09; Status DC Cefazolin Sodium/ Dextrose 50 ml @ 150 mls/hr HYPERION ADMINISTRATOR ONCE IV Last administered on 07/17/17at 06:04; Start 07/17/17 at 06:00; Stop 07/17/17 at 06:19 ; Status DC Chlorhexidine Gluconate (Hibiclens 4% Top Soln) 1 applic HS TOP ; Start at 21:00; Stop 07/18/17 at 21:01; Status DC Etomidate (Amidate Inj) 40 mg STK-MED ONCE .ROUTE Last administered on at 13:09; Start 07/16/17 at 13:09; Stop 07/16/17 at 13:10; Status DC Fentanyl Citrate (fentaNYL INJ) 100 mcg STK-MED ONCE .ROUTE Last administered on 07/16/17at 13:09; Start 07/16/17 at 13:09; Stop 07/16/17 at 13:10; Status DC Rocuronium [place] (Zemuron Inj) 50 mg STK-MED ONCE .ROUTE Last administered on 07/16/17at 13:09; Start 07/16/17 at 13:09; Stop 07/16/17 at 13:10; Status DC Mannitol 100 ml @ As Directed STK-MED ONCE .ROUTE Last administered on at 13:15; Start 07/16/17 at 13:15; Stop 07/16/17 at 13:16; Status DC Propofol 50 ml @ As Directed STK-MED ONCE .ROUTE ; Start 07/16/17 at 13:23; Stop 07/16/17 at 13:24; Status DC Sodium Chloride 1,000 ml @ 75 mls/hr [id number] IV Last administered on at 03:36; Start 07/16/17 at 13:28 Sodium Chloride (NS Flush) 2 ml UNSCH PRN IV FLUSH FLUSH AFTER USING IV ACCESS ; Start 07/16/17 at 13:30; Stop 07/16/17 at 13:52; Status DC Sodium Chloride (NS Flush) 2 ml BID IV FLUSH ; Start 07/16/17 at 21:00; Stop at 21:00; Status DC Albuterol/ Ipratropium (Duoneb Neb) 1 ampule Q6HR NEB NEB Last administered on 07/20/17at 15:50; Start 07/16/17 at 16:00; Stop 07/20/17 at 15:59; Status DC Albuterol/ Ipratropium (Duoneb Neb) 1 ampule Q4HR NEB PRN INH SHORTNESS OF BREATH Last administered on 07/20/17at 20:13; Start 07/16/17 at 13:30 Chlorhexidine Gluconate (Peridex 0.12% Liq) 15 ml BID@08,20 MT Last administered on 07/20/17at 08:00; Start 07/16/17 at 20:00 Famotidine (Pepcid) 20 mg BID PO Last administered on 07/21/17at 21:38; Start at 21:00 Miscellaneous Information 1 [id number] ; Start 07/16/17 at 13:30 Chlorhexidine Gluconate (Chlorhexidine 2% Cloth) Taper DAILY@04 TOP Last administered on 07/17/17at 00:40; Start 07/17/17 at 04:00; Stop 07/13/18 at 03:59 Chlorhexidine Gluconate (Chlorhexidine 2% Cloth) 3 pack UNSCH PRN TOP HYGIENIC CARE; Start 07/16/17 at 13:30 Propofol 100 ml @ 2.553 mls/ hr TITRATE PRN IV SEDATION Last administered on at 07:20; Start 07/16/17 at 13:30 Dopamine HCl/ Dextrose 500 ml @ 9.574 mls/ hr TITRATE PRN IV Blood Pressure Management; Start 07/16/17 at 14:30 Terbutaline Sulfate (Brethine Inj) 1 mg UNSCH PRN SQ For Extravasation; Start 07/16/17 at 14:15 Fosphenytoin Sodium 1000 mgpe/ Sodium Chloride 70 ml @ 280 mls/hr ONCE ONCE IV Last administered on 07/16/17at 14:30; Start 07/16/17 at 14:30; Stop at 14:44; Status DC Fosphenytoin Sodium (Cerebyx Inj) 100 mgpe Q8HR IV Last administered on at 05:55; Start 07/16/17 at 22:00 Mannitol (Mannitol Inj) 12.5 gm Q6HR IV Last administered on 07/21/17at 06:21; Start 07/16/17 at 18:00; Stop 07/21/17 at 08:46; Status DC Heparin Sodium (Porcine) (Heparin Central Flush) See Protocol DAILY IV FLUSH Last administered on 07/21/17at 08:35; Start 07/17/17 at 09:00 Heparin Sodium (Porcine) (Heparin Central Flush) See Protocol UNSCH PRN IV FLUSH SEE PROTOCOL TABLE; Start 07/16/17 at 19:30 Sodium Chloride (NS Flush) UNSCH PRN IV FLUSH SEE PROTOCOL TABLE; Start at 19:30 Sodium Chloride (NS Flush) See Protocol UNSCH PRN IV FLUSH FLUSH AFTER USING IV ACCESS Last administered on 07/21/17at 08:36; Start 07/16/17 at 19:30 Sodium Chloride (NS Flush) SEE PROTOCOL UNSCH PRN IV FLUSH SEE PROTOCOL TABLE; Start 07/16/17 at 19:30 Sodium Chloride (NS Flush) See Protocol DAILY IV FLUSH ; Start 07/17/17 at 09:00 ; Status Cancel Sodium Chloride (NS Flush) See Protocol UNSCH PRN IV FLUSH SEE PROTOCOL TABLE; Start 07/16/17 at 19:30; Status Cancel Etomidate (Amidate Inj) 25 mg NOW ONCE IV PUSH Last administered on 07/16/17at 13:15; Start 07/16/17 at 20:15; Stop 07/16/17 at 20:16; Status DC Fentanyl Citrate (fentaNYL INJ) 100 mcg NOW ONCE IV ; Start 07/16/17 at 20:15; Stop 07/16/17 at 20:16; Status DC Rocuronium [place] (Zemuron Inj) 50 mg NOW ONCE IV Last administered on at 13:15; Start 07/16/17 at 20:15; Stop 07/16/17 at 20:16; Status DC Gentamicin Sulfate (Gentamicin Inj) 240 mg STK-MED ONCE .ROUTE Last administered on 07/17/17at 10:00; Start 07/17/17 at 07:12; Stop 07/17/17 at 07:13 ; Status DC Lidocaine/ Epinephrine (Xylocaine-Epi 1%-1:100,000 Inj) 30 ml STK-MED ONCE .ROUTE Last administered on 07/17/17at 09:45; Start 07/17/17 at 08:17; Stop at 08:18; Status DC Thrombin (Thrombin Top Soln) 10,000 units STK-MED ONCE .ROUTE Last administered on 07/17/17at 10:00; Start 07/17/17 at 08:17; Stop 07/17/17 at 08:18 ; Status DC Gelatin (Gelfoam 100 Top) 1 foam STK-MED ONCE .ROUTE Last administered on at 10:00; Start 07/17/17 at 08:17; Stop 07/17/17 at 08:18; Status DC Furosemide (Lasix Inj) 40 mg STK-MED ONCE .ROUTE ; Start 07/17/17 at 08:18; Stop 07/17/17 at 08:19; Status DC Levetriacetam (Keppra Inj) 1,000 mg STK-MED ONCE IV ; Start 07/17/17 at 08:18; Stop 07/17/17 at 08:19; Status DC Bacitracin (Baciguent Oint) 15 applic STK-MED ONCE .ROUTE Last administered on 07/17/17at 10:00; Start 07/17/17 at 08:18; Stop 07/17/17 at 08:19; Status DC Gentamicin Sulfate (Gentamicin Inj) 240 mg STK-MED ONCE .ROUTE ; Start 07/17/17 at 08:18; Stop 07/17/17 at 08:19; Status DC Levetriacetam (Keppra Inj) 500 mg STK-MED ONCE IV Last administered on at 09:54; Start 07/17/17 at 08:22; Stop 07/17/17 at 08:23; Status DC Potassium Chloride/Sodium Chloride 1,000 ml @ 100 mls/hr Q10H IV Last administered on 07/19/17at 06:25; Start 07/17/17 at 11:45; Stop 07/19/17 at 13:10 ; Status DC Cefazolin Sodium/ Dextrose 50 ml @ 100 mls/hr Q8H IV Last administered on 07/18at 05:32; Start 07/17/17 at 14:00; Stop 07/18/17 at 06:29; Status DC Levetriacetam 500 mg/Sodium Chloride 105 ml @ 400 mls/hr Q12H IV Last administered on 07/21/17at 23:45; Start 07/17/17 at 12:00 Bisacodyl (Dulcolax Supp) 10 mg DAILY PRN IN CONSTIPATION; Start 07/17/17 at 10 :45; Stop 07/17/17 at 11:45; Status DC Docusate Sodium (Colace) 100 mg BID PO Last administered on 07/21/17at 21:38; Start 07/17/17 at 21:00 Pantoprazole Sodium (Protonix) 40 mg DAILY PO Last administered on 07/21/17at 08 :34; Start 07/18/17 at 09:00 Pantoprazole Sodium (Protonix Inj) 40 mg DAILY PRN IVP SEE LABEL COMMENTS; Start 07/18/17 at 09:00 Ondansetron HCl (Zofran Inj) 4 mg Q6H PRN IV PUSH NAUSEA OR VOMITING Last administered on 07/21/17at 16:37; Start 07/17/17 at 10:45 Calcium Gluconate (Calcium Gluconate Inj) 1 gm UNSCH PRN IV SEE LABEL COMMENTS ; Start 07/17/17 at 10:45 Potassium Chloride 100 ml @ 50 mls/hr UNSCH PRN IV POTASSIUM LESS THAN 4; Start 07/17/17 at 11:45 Magnesium Sulfate 4 gm/Sodium Chloride 108 ml @ 54 mls/hr UNSCH PRN IV MAGNESIUM LESS THAN 2; Start 07/17/17 at 11:45 Acetaminophen/ Hydrocodone Bitart ([place] 10-325 Mg) 1 tab Q4H PRN PO PAIN SCALE 1 TO 5 Last administered on 07/21/17at 13:16; Start 07/17/17 at 11:45 Acetaminophen/ Hydrocodone Bitart ([place] 10-325 Mg) 2 tab Q4H PRN PO PAIN SCALE 6 TO 10 Last administered on 07/21/17at 08:42; Start 07/17/17 at 11:45 Morphine Sulfate (Morphine Inj) 2 mg Q2H PRN IV PUSH PAIN SCALE 1 TO 6; Start 07/17/17 at 11:45 Morphine Sulfate (Morphine Inj) 4 mg Q2H PRN IV PUSH PAIN SCALE 7 TO 10 Last administered on 07/20/17at 09:44; Start 07/17/17 at 11:45 Acetaminophen (Tylenol) 650 mg Q4H PRN PO TEMPERATURE > 101.5 F; Start at 11:45 Fentanyl Citrate (fentaNYL INJ) 100 mcg STK-MED ONCE .ROUTE ; Start 07/17/17 at 11:16; Stop 07/17/17 at 11:17; Status DC Midazolam HCl (Versed Inj) 2 mg STK-MED ONCE .ROUTE ; Start 07/17/17 at 11:16; Stop 07/17/17 at 11:17; Status DC Lactated Ringer's 1,000 ml @ As Directed STK-MED ONCE IV ; Start 07/17/17 at 12 :00; Stop 07/17/17 at 15:36; Status DC Sodium Chloride 500 ml @ As Directed STK-MED ONCE IV ; Start 07/17/17 at 12:00 ; Stop 07/17/17 at 15:36; Status DC Parenteral Electrolytes 1,000 ml @ As Directed STK-MED ONCE IV ; Start at 12:00; Stop 07/17/17 at 15:36; Status DC Lidocaine HCl (Xylocaine-Mpf 1% Inj) 10 ml STK-MED ONCE OTHER ; Start 07/17/17 at 12:00; Stop 07/17/17 at 15:36; Status DC Rocuronium [place] (Zemuron Inj) 100 mg STK-MED ONCE IV PUSH ; Start 07/17/17 at 12:00; Stop 07/17/17 at 15:36; Status DC Ephedrine Sulfate (ePHEDrine/NS 25 MG/5 ML SYR) 50 mg STK-MED ONCE IV ; Start at 12:00; Stop 07/17/17 at 15:36; Status DC Propofol (Diprivan 200 Mg/20 ml Inj) 200 mg STK-MED ONCE IV ; Start 07/17/17 at 12:00; Stop 07/17/17 at 15:36; Status DC Midazolam HCl (Versed Inj) 2 mg STK-MED ONCE .ROUTE ; Start 07/17/17 at 18:36; Stop 07/17/17 at 18:37; Status DC Dexamethasone Sodium Phosphate (Decadron Inj) 3 mg Q6HR IV PUSH Last administered on 07/22/17at 05:55; Start 07/20/17 at 18:00 A/P Assessment and Plan 07/16: Ms. Sun is a 61-year-old female who was brought to the emergency room at [facility] in [place] for increasing confusion , slurred speech, and right-sided weakness for four days. CT of the head was performed and showed a brain mass with midline shift of 6.8 mm with differential including subacute hemorrhage versus neoplastic process. The patient was accepted in transfer by Dr. Barth for neurosurgical evaluation here at [facility] in [place]. Patient was reportedly awake and alert till around 12:45 PM today. Subsequently around 1 PM rapid response team was called as patient became unresponsive. FS glucose 105. I reached patient's bedside immediately on being notified by Dr. Calderón regarding change in neurologic status. In view of high suspicion for intracranial hemorrhage patient was transferred emergently to the ICU and intubated and placed on mechanical ventilation for airway protection and a stat head CT was ordered. 25 g mannitol IV stat was administered prior to intubation. Dr. Sutton was informed regarding change in neurologic status as well and will be evaluating head CT to decide further intervention. 07/21: Clinically stable, is not oriented, appreciate psychiatry consultation patient is not competent for decision making, follow psych meds recommendation, neurology following 61-year-old female with: Encephalopathy Left basal ganglia mass with vasogenic edema and midline shift Acute respiratory failure on mechanical ventilation for airway protection Hypothyroidism h/o CVA with possible seizure activity at the time of the CVA - no seizures since and does not take AEDs Hypertension Osteoporosis Asthma Obstructive sleep apnea Bipolar disorder GERD Hyperlipidemia Plan Neuro: Sedation with propofol. Head CT done on 07/16 with no significant change compared to MRI brain per radiology. EEG did not show any seizure activity. Anticonvulsant started on 07/16: fosphenytoin loading followed by maintenance dose. Continue Decadron 4 million g IV every 6 hourly. Received mannitol 25 g IV 1 dose. continue mannitol every 6 hourly. Scheduled for biopsy of brain mass for 07/17 -done. Cardiovascular: Bradycardia noted. Remains hypertensive. We will use dopamine if needed if patient develops hypotension secondary to bradycardia. Pulmonary: Intubated for airway protection. Continue mechanical ventilation. End-tidal CO2 monitoring. Vent bundle, bronchodilators as needed. GI/liver: N.p.o. for now. OG tube placed for medications. Renal/: IV hydration, strict intake output, monitor and replete electrolytes, follow BN creatinine. Awaiting pathology report. Antibiotic prophylaxis per neurosurgery Heme: Follow CBC and coags. Endocrine: SSI for glycemic control if needed. Ruled out hypoglycemia during rapid response. Prophylaxis: PPI/SCDs. No subcu heparin or Lovenox until cleared by neurosurgery. cleared by all CAN TRANSFER BACK TO [facility] [facility] HER PRIMARY ONCOLOGY IS DR MAXI HERNANDEZ IN [facility] Discharge Planning TRANSFER BACK TO [facility] WILL NEED SNF AT Kamari Masters DO Jul 22, 2017 09:46
[2017-07-22] MEDS ORDERED: HYDR-3583 PO ×2 (09:49)
[2017-07-22] MEDS ORDERED: SENN187 PO (09:56)
[2017-07-22] MEDS ORDERED: LEVE500 PO (09:56)
[2017-07-22] MEDS ORDERED: Chlorhexidine 0.12% Liq MT (09:56)
[2017-07-22] MEDS ORDERED: DEXA4TAB PO (09:56)
[2017-07-22] MEDS ORDERED: DILA100C PO (09:56)
[2017-07-22] MEDS: ADULT - PICC FLUSH PRN FOR HEPARIN ALLERGY OR HIT DIAGNOSIS IV FLUSH (10:02)
[2017-07-22] MEDS: ACETAMINOPHEN/HYDROcodone 325 MG/10 MG TAB PO PRN (10:03)
[2017-07-22] MEDS: ALLOPURINOL 100 MG TAB PO SCH ×2 (10:03→20:19)
[2017-07-22] MEDS: MAGNESIUM HYDROXIDE SUSP 30 ML CUP PO PRN (10:03)
[2017-07-22] MEDS: FAMOTIDINE 20 MG TAB PO SCH ×2 (10:03→20:19)
--- NOTE | 2017-07-22 10:03 | HHI.DS ---
Discharge Summary Admission Date Jul 14, 2017 at 21:20 Discharge Date: Jul 22, 2017 Admitting Diagnosis newly discovered brain mass vs subacute hemorrhage . 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 The lesions had abnormal signal intensity and and characteristics consistent with a possible neoplastic, inflammatory, or infectious process. A stereotactic biopsy of the lesions was indicated. The [id number]-mg-[id number] details of the procedure, its indications, alternatives, risks and potential complications were fully discussed with the patient. The patient fully understood. All questions were answered. No guarantees were given. The patient voiced requesting the procedure and provided informed consents. The patient was offered the alternative of not having aggressive management. DETAILS OF THE SURGICAL PROCEDURE Preoperative planning Prior to the surgery the patient underwent an MRI of the brain according to the stereotactic protocol. The information from the MRI scan was transferred to the operating room via the hospital network and the preoperative planning of the lesion was made. A julia was made at the patients operative site according to the hospital policy. Surgical positioning The patient was then brought to the operating room. After induction of general anesthesia endotracheal intubation was performed. Bkilateral carlos hose and sequential compression devices were placed and kept throughout the procedure. The patient was positioned supine on a 3080 table over a soft mattress. All pressure points were carefully padded with an egg crate mattress. The eyes were tapped shut after ointment was applied by the anesthesiologist to prevent corneal abrasion. A Shannon hugger was placed over the exposed lower body to maintain control of the core body temperature. The head was held in rigid fixation using the Unity head bander and liner operator. Intraoperative registration The rigid body was attached to the Unity headholder. Intraoperative registration was then performed with the [facility]. The lesion was located in the three planes, sagittal, axial and coronal. An entry point was selected in the scalp. Surgical Approach and stereotactic biopsy The skin was prepped and draped in the usual sterile fashion. A linear incision in the left frontal region selected by the planning was outlined. The area was infiltrated with 1% lidocaine with epinephrine 1:100,000 dilution. A skin incision was made with a #10 blade. Small subgaleal bleeders were controlled with a bipolar a small self-retaining retractor was placed in the incision. The fascia and muscle were incised with a Bovie and retracted at each side. The Midas Freddy was brought into the field and a bur hole was made with an AM-8 drill bit. The duramatter was coagulated with a bipolar and opening increased for pressure and a very small corticotomy performed. At this point of the procedure the stereotactic biopsy arm was brought into the field and secured to the head bander and liner operator. The statistical assistant was brought into the field, and the trajectory on the biopsy arm was created following the previously selected trajectory. Then, a stereotactic needle was carefully inserted into the brain at the center of the lesion and by gentle aspiration two initial biopsies were obtained, one of which was sent to the lab for frozen section, while the second kept for permanent histological annalysis. Meanwhile, additional specimens were obtained for permanent histologic analysis. At this point in the procedure , after waiting for awhile, the frozen section was called in and reported as lymphoma. The biopsy needle was carefully removed and the stereotactic device was removed. The incision was irrigated with a large amount of saline. A piece of Gelfoam was placed over the surface of the brain and a bur hole cover was placed. The incision was closed in layers. 3-0 Vicryl with interrupted sutures were used to close the fascial layers and galea. The skin was closed with chip. A sterile dressing was applied. At the end of the procedure the sponge, needle and instrument counts were all correct. Estimated blood loss was minimal. No blood transfusion was given. The patient received preoperative prophylactic antibiotics. No intraoperative complications occurred. The patient was transferred to the recovery room in stable condition. Miguel Sutton MD Jul 17, 2017 17:40 Brief History - From Admission Ms. Sun is a 61-year-old female who is brought to the emergency room at [facility] in [place] for increasing confusion, slurred speech, and right-sided weakness for four days. CT of the head was performed and showed a brain mass with midline shift of 6.8 mm with differential including subacute hemorrhage versus neoplastic process. The patient was accepted in transfer by Dr. Todd for neurosurgical evaluation here at [facility] in [place]. The patient is remains slightly confused at the time of my visit and states that she does not know why she is here at the hospital. She indicates that she' s been feeling fine and has no problems. She denies any fever, chills, nausea, vomiting, or cough. She indicates that she would prefer for her daughter to provide Malay interpretation for her in lieu of a professional interpretation service. CBC/BMP: 07/18/17 0415 07/19/17 2348 Significant Findings Laboratory Tests Test 07/19/17 12:00 07/19/17 18:30 07/19/17 23:48 07/20/17 05:51 Serum Osmolality 302 MOSM/KG (275-295) 298 MOSM/KG (275-295) 298 MOSM/KG (275-295) Test 07/20/17 11:00 07/20/17 17:20 07/20/17 23:00 07/21/17 05:10 Serum Osmolality 296 MOSM/KG (275-295) 298 MOSM/KG (275-295) 296 MOSM/KG (275-295) 297 MOSM/KG (275-295) Imaging Last Impressions Head CT 07/17/17 0000 Signed Impressions: Service Date/Time: Monday, July 17, 2017 11:28 - CONCLUSION: 1. Status post biopsy of left brain mass. Orlando Tavarez MD Chest X-Ray 07/16/17 1430 Signed Impressions: Service Date/Time: June 18:32 - CONCLUSION: Endotracheal tube tip is at the grupo. Slight retraction suggested. Israel Ruelas MD Brain MRI 07/15/17 0000 Signed Impressions: Service Date/Time: Saturday, July 15, 2017 15:42 - CONCLUSION: Left basal ganglia mass with moderate associated vasogenic edema. Mild-moderate hemispheric mass effect. Serpiginous enhancement in the contralateral right mid to high convexity frontal region. Israel Ruelas MD PE at Discharge GENERAL: Awake and alert only speaks Malay-daughter translating-patient has been deemed to be not competent to make her medical decisions per psychiatry SKIN: Warm and dry. HEAD: Atraumatic. Normocephalic. EYES: Pupils equal and round. No scleral icterus. No injection or drainage. Extraocular muscles intact ENT: No nasal bleeding or discharge. Mucous membranes pink and moist. Tongue is midline NECK: Trachea midline. No JVD. Supple CARDIOVASCULAR: Regular rate and rhythm. S1-S2 no S3 or S4 no heave or thrill or rub or gallop RESPIRATORY: No accessory muscle use. Clear to auscultation. Breath sounds equal bilaterally. GASTROINTESTINAL: Abdomen soft, non-tender, nondistended. Hepatic and splenic margins not palpable. MUSCULOSKELETAL: Extremities without clubbing, cyanosis, or edema. No obvious deformities. NEUROLOGICAL: Awake and alert. No obvious cranial nerve deficits. Motor grossly within normal limits. Five out of 5 muscle strength in the arms and legs. Normal speech. PSYCHIATRIC: INAppropriate mood and affect; insight and judgment ABnormal. Hospital Course 07/16: Ms. Sun is a 61-year-old female who was brought to the emergency room at [facility] in [place] for increasing confusion , slurred speech, and right-sided weakness for four days. CT of the head was performed and showed a brain mass with midline shift of 6.8 mm with differential including subacute hemorrhage versus neoplastic process. The patient was accepted in transfer by Dr. Barth for neurosurgical evaluation here at [facility] in [place]. Patient was reportedly awake and alert till around 12:45 PM today. Subsequently around 1 PM rapid response team was called as patient became unresponsive. FS glucose 105. I reached patient's bedside immediately on being notified by Dr. Calderón regarding change in neurologic status. In view of high suspicion for intracranial hemorrhage patient was transferred emergently to the ICU and intubated and placed on mechanical ventilation for airway protection and a stat head CT was ordered. 25 g mannitol IV stat was administered prior to intubation. Dr. Sutton was informed regarding change in neurologic status as well and will be evaluating head CT to decide further intervention. 07/17: Sedated, arousable, orally intubated on mechanical ventilation. For brain biopsy today. 07/18: Stereotactic brain biopsy performed yesterday. Procedure was well tolerated and blood pressure control is acceptable. No seizures overnight. Awaiting pathology report. - Seen and examined, pleasant, awake open eyes, no nausea or vomiting, slight headache, scalp suture looks clean 4- patient resting comfortably in bed, no acute issue overnight discussed with the nurse Discussed with the granddaughter, she wants to know if patient will be competent enough to handle her financial issues 4-24 Patient resting comfortably in bed She is non-Japanese speaker Per the family she found confused Patient seen by psychiatry Dr. Rodrigues she is not competent for decision- making will need approximately to be involved 4-25 cleared by neurosurgery Can follow-up with oncology Dr. Maxi HERNANDEZ in [place] TRANSFER BACK TO [facility] FOR HELP WITH PLACEMENT DC BACK TO [facility] TODAY DW RN AND PT AND FAMILY DEEMED INCOMPETENT PER PSYCHIATRY Pt Condition on Discharge: Fair Discharge Disposition: Disch to Another Hospital Discharge Time: > 30 minutes Discharge Instructions DIET: Follow Instructions for: Heart Healthy Diet Speech Therapy-Diet Recommends: Regular Activities you can perform: Weight Bearing as [place] Follow up Referrals: Neurosurgery - 2 Weeks with Zane Quinones MD Oncology/Hematology - 1 Week with MAXI HERNANDEZ PCP Follow-up - Today New Medications: Dexamethasone (Dexamethasone) 4 Mg Tab 4 MG PO BID for Inflammation for 30 Days, #60 TAB 0 Refills Levetiracetam (Keppra) 500 Mg Tab 500 MG PO BID for Control Seizures, #60 TAB 0 Refills Phenytoin Extended (Dilantin) 100 Mg Cap 100 MG PO TID for Control Seizures, #90 CAP 0 Refills Hydrocodone/Acetaminophen (Hydrocodone-Acetamin 10-325 mg) 10 Mg-325 Mg Tablet 1 TAB PO Q4H PRN for PAIN SCALE 1 TO 5, #30 TAB Hydrocodone/Acetaminophen (Hydrocodone-Acetamin 10-325 mg) 10 Mg-325 Mg Tablet 2 TAB PO Q4H PRN for PAIN SCALE 6 TO 10, #30 TAB Sennosides (Senna-Lax) 8.6 Mg Tab 17.2 MG PO Q12H PRN for Moderate constipation, #120 TAB [Chlorhexidine 0.12% Liq] () 15 ML SOLN 15 ML MT BID@08,20 for Infection, #900 ML Continued Medications: Acetaminophen (Tylenol) 325 Mg Tab 500 MG PO Q4H, TAB 0 Refills Acyclovir (Acyclovir) 400 Mg Tab 400 MG PO THURSDAY, , THURSDAY, TAB 0 Refills Albuterol 8.5 GM Inh (Proair Hfa 8.5 GM Inh) 90 Mcg/Act Aer 2 PUFF INH Q4-6H PRN for SHORTNESS OF BREATH, #1 INHALER 0 Refills 108 mcg/actuation Albuterol Sulfate (Proair Hfa) 90 Mcg Hfa.aer.ad Allopurinol (Allopurinol) 100 Mg Tab 100 MG PO BID, #30 TAB 0 Refills Atorvastatin (Atorvastatin) 40 Mg Tab 40 MG PO HS for Cholesterol Management, #30 TAB 0 Refills Citalopram (Celexa) 20 Mg Tab 20 MG PO DAILY for Control Depression, #30 TAB 0 Refills Ferrous Sulfate ER (Ferrous Sulfate ER) 140 Mg (45 Mg Iron) Tab 65 MG PO DAILY for Nutritional Supplement, #30 TAB 0 Refills Folic Acid (Folic Acid) 0.4 Mg Tab 1 MG PO HS for Nutritional Supplement, TAB 0 Refills Levothyroxine (Levothyroxine) 150 Mcg Tab 150 MCG PO DAILY for Thyroid, #30 TAB 0 Refills Multiple Vitamins W/ Minerals (Centrum) 1 Chew 1 TAB CHEW DAILY for Nutritional Supplement, TAB 0 Refills Omeprazole (Omeprazole) 20 Mg Tab 20 MG PO DAILY, #30 TAB 0 Refills Quetiapine (Quetiapine) 25 Mg Tab 25 MG PO HS, #30 TAB 0 Refills Kamari Stoddard DO Jul 22, 2017 10:03
[2017-07-22] MEDS: DOCUSATE SODIUM 50 MG/SENNA 8.6 MG TAB PO SCH ×2 (10:04→20:19)
[2017-07-22] MEDS: FERROUS SULFATE 325 MG (65 MG ELEMENTAL IRON) TAB PO SCH (10:04)
[2017-07-22] MEDS: PANTOPRAZOLE SOD 40 MG DELAYED RELEASE TAB PO SCH (10:04)
[2017-07-22] MEDS: DOCUSATE SODIUM 100 MG CAP PO SCH ×2 (10:04→20:19)
[2017-07-22] MEDS: CITALOPRAM HYDROBROMIDE 20 MG TAB PO SCH (10:04)
[2017-07-22] MEDS: PHENYTOIN SODIUM 100 MG CAP PO SCH ×2 (13:02→21:40)
[2017-07-22] MEDS: levETIRAcetam INJ 500 MG in SODIUM CHLORIDE 0.9% INJ 100 ML IV SCH (13:02)
[2017-07-22] MEDS: ATORVASTATIN 40 MG TAB PO SCH (20:19)
[2017-07-22] MEDS: QUEtiapine FUMARATE 25 MG TAB PO SCH (20:19)
[2017-07-23] VITALS (8 sets, daily range): BP systolic 103–131; BP diastolic 58–79; PULSE 45–56; RESP 12–17; TEMP 98.2–98.7; O2SAT 94–99
[2017-07-23] MEDS: DEXAMETHASONE SOD PHOS 4 MG/ML VIAL IV PUSH SCH ×4 (00:51→17:48)
[2017-07-23] MEDS: levETIRAcetam INJ 500 MG in SODIUM CHLORIDE 0.9% INJ 100 ML IV SCH ×2 (00:51→11:51)
[2017-07-23] MEDS: CHLORHEXIDINE GLUCONATE 2 % 1 PACK (2 CLOTHS) TOP SCH (00:52)
[2017-07-23] MEDS: SODIUM CHLOR 0.9% 1000 ML INJ 1,000 ML IV SCH ×2 (05:28→16:48)
[2017-07-23] MEDS: LEVOTHYROXINE SODIUM 150 MCG TAB PO SCH (06:21)
[2017-07-23] MEDS: PHENYTOIN SODIUM 100 MG CAP PO SCH ×3 (06:21→21:53)
[2017-07-23] MEDS: FOSPHENYTOIN SODIUM 100 MG PE/2 ML VIAL IV SCH ×3 (06:21→21:52)
[2017-07-23] MEDS: CHLORHEXIDINE 0.12% (ORAL KIT) 15 ML CUP MT SCH ×2 (07:44→20:00)
[2017-07-23] MEDS: FAMOTIDINE 20 MG TAB PO SCH ×2 (09:17→21:51)
[2017-07-23] MEDS: FERROUS SULFATE 325 MG (65 MG ELEMENTAL IRON) TAB PO SCH (09:17)
[2017-07-23] MEDS: CITALOPRAM HYDROBROMIDE 20 MG TAB PO SCH (09:17)
[2017-07-23] MEDS: DOCUSATE SODIUM 100 MG CAP PO SCH ×2 (09:17→21:51)
[2017-07-23] MEDS: DOCUSATE SODIUM 50 MG/SENNA 8.6 MG TAB PO SCH ×2 (09:17→21:51)
[2017-07-23] MEDS: PANTOPRAZOLE SOD 40 MG DELAYED RELEASE TAB PO SCH (09:17)
[2017-07-23] MEDS: ALLOPURINOL 100 MG TAB PO SCH ×2 (09:17→21:52)
--- NOTE | 2017-07-23 11:39 | HHI.PR ---
Subjective Remarks She is in bed appears in not acute distress at this time. However she is complaining of back pain on and off able to sit up in the chair with physical therapy today. Family at bedside. No nausea vomiting diarrhea constipation. Eating better today. No new motor deficit. No change in vision. Objective Vitals Vital Signs Date Time Temp Pulse Resp B/P (MAP) Pulse Ox O2 Delivery O2 Flow Rate FiO2 07/23/17 08:00 48 07/23/17 08:00 98.6 48 14 123/72 (89) 94 07/23/17 07:37 99 Nasal Cannula 2.00 07/23/17 07:00 98 Nasal Cannula 2.00 07/23/17 04:00 45 07/23/17 04:00 98.7 45 14 131/79 (96) 97 07/23/17 00:00 46 07/23/17 00:00 98.2 46 12 129/76 (93) 96 07/22/17 20:00 98.1 48 16 124/70 (88) 96 07/22/17 20:00 49 07/22/17 19:06 96 Nasal Cannula 2.00 07/22/17 19:00 96 Nasal Cannula 2.00 07/22/17 16:00 99.1 49 13 107/63 (78) 94 07/22/17 16:00 49 07/22/17 12:00 50 07/22/17 12:00 97.9 50 33 132/71 (91) 96 I/O 07/22/17 07/22/17 07/22/17 07/23/17 07/23/17 07/23/17 07:00 15:00 23:00 07:00 15:00 23:00 Intake Total 520 ml 1105 ml Output Total 3050 ml 1250 ml 2200 ml Balance -3050 ml -730 ml -1095 ml Intake Oral 520 ml IV Total 1105 ml Output Urine Total 3050 ml 1250 ml 2200 ml # Bowel Movements 0 Result Diagram: 07/19/17 2348 Imaging Last Impressions Head CT 07/17/17 0000 Signed Impressions: Service Date/Time: Monday, July 17, 2017 11:28 - CONCLUSION: 1. Status post biopsy of left brain mass. Orlando Tavarez MD Chest X-Ray 07/16/17 1430 Signed Impressions: Service Date/Time: June 18:32 - CONCLUSION: Endotracheal tube tip is at the grupo. Slight retraction suggested. Israel Ruelas MD Brain MRI 07/15/17 0000 Signed Impressions: Service Date/Time: Saturday, July 15, 2017 15:42 - CONCLUSION: Left basal ganglia mass with moderate associated vasogenic edema. Mild-moderate hemispheric mass effect. Serpiginous enhancement in the contralateral right mid to high convexity frontal region. Israel Ruelas MD Objective Remarks GENERAL: Awake and alert only speaks Amharic-daughter translating-patient has been deemed to be not competent to make her medical decisions per psychiatry SKIN: Warm and dry. HEAD: Atraumatic. Normocephalic. EYES: Pupils equal and round. No scleral icterus. No injection or drainage. Extraocular muscles intact ENT: No nasal bleeding or discharge. Mucous membranes pink and moist. Tongue is midline NECK: Trachea midline. No JVD. Supple CARDIOVASCULAR: Regular rate and rhythm. S1-S2 no S3 or S4 no heave or thrill or rub or gallop RESPIRATORY: No accessory muscle use. Clear to auscultation. Breath sounds equal bilaterally. GASTROINTESTINAL: Abdomen soft, non-tender, nondistended. Hepatic and splenic margins not palpable. MUSCULOSKELETAL: Extremities without clubbing, cyanosis, or edema. No obvious deformities. NEUROLOGICAL: Awake and alert. No obvious cranial nerve deficits. Motor grossly within normal limits. Five out of 5 muscle strength in the arms and legs. Normal speech. 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 The lesions had abnormal signal intensity and and characteristics consistent with a possible neoplastic, inflammatory, or infectious process. A stereotactic biopsy of the lesions was indicated. The [id number] details of the procedure, its indications, alternatives, risks and potential complications were fully discussed with the patient. The patient fully understood. All questions were answered. No guarantees were given. The patient voiced requesting the procedure and provided informed consents. The patient was offered the alternative of not having aggressive management. DETAILS OF THE SURGICAL PROCEDURE Preoperative planning Prior to the surgery the patient underwent an MRI of the brain according to the stereotactic protocol. The information from the MRI scan was transferred to the operating room via the hospital network and the preoperative planning of the lesion was made. A julia was made at the patients operative site according to the hospital policy. Surgical positioning The patient was then brought to the operating room. After induction of general anesthesia endotracheal intubation was performed. Bkilateral carlos hose and sequential compression devices were placed and kept throughout the procedure. The patient was positioned supine on a 3080 table over a soft mattress. All pressure points were carefully padded with an egg crate mattress. The eyes were tapped shut after ointment was applied by the anesthesiologist to prevent corneal abrasion. A Shannon hugger was placed over the exposed lower body to maintain control of the core body temperature. The head was held in rigid fixation using the Bravo head of physics. Intraoperative registration The rigid body was attached to the [employer] headholder. Intraoperative registration was then performed with the [employer] [place]. The lesion was located in the three planes, sagittal, axial and coronal. An entry point was selected in the scalp. Surgical Approach and stereotactic biopsy The skin was prepped and draped in the usual sterile fashion. A linear incision in the left frontal region selected by the planning was outlined. The area was infiltrated with 1% lidocaine with epinephrine 1:100,000 dilution. A skin incision was made with a #10 blade. Small subgaleal bleeders were controlled with a bipolar a small self-retaining retractor was placed in the incision. The fascia and muscle were incised with a Bovie and retracted at each side. The Midas Freddy was brought into the field and a bur hole was made with an AM-8 drill bit. The duramatter was coagulated with a bipolar and opening increased for pressure and a very small corticotomy performed. At this point of the procedure the stereotactic biopsy arm was brought into the field and secured to the head of physics. The florist supplies salesperson was brought into the field, and the trajectory on the biopsy arm was created following the previously selected trajectory. Then, a stereotactic needle was carefully inserted into the brain at the center of the lesion and by gentle aspiration two initial biopsies were obtained, one of which was sent to the lab for frozen section, while the second kept for permanent histological annalysis. Meanwhile, additional specimens were obtained for permanent histologic analysis. At this point in the procedure , after waiting for awhile, the frozen section was called in and reported as lymphoma. The biopsy needle was carefully removed and the stereotactic device was removed. The incision was irrigated with a large amount of saline. A piece of Gelfoam was placed over the surface of the brain and a bur hole cover was placed. The incision was closed in layers. 3-0 Vicryl with interrupted sutures were used to close the fascial layers and galea. The skin was closed with chip. A sterile dressing was applied. At the end of the procedure the sponge, needle and instrument counts were all correct. Estimated blood loss was minimal. No blood transfusion was given. The patient received preoperative prophylactic antibiotics. No intraoperative complications occurred. The patient was transferred to the recovery room in stable condition. Miguel Sutton MD Jul 17, 2017 17:40 A/P Problem List: (1) Brain mass ICD Code: G93.9 - Disorder of brain, unspecified (2) Dementia without behavioral disturbance ICD Code: F03.90 - Unspecified dementia without behavioral disturbance (3) Hypertension ICD Code: I10 - Essential (primary) hypertension (4) Hyperlipidemia ICD Code: E78.5 - Hyperlipidemia, unspecified (5) Seizure ICD Code: R56.9 - Unspecified convulsions Assessment and Plan Ms. Sun is a 61-year-old female who was brought to the emergency room at [facility] in [place] for increasing confusion, slurred speech, and right-sided weakness for four days. CT of the head was performed and showed a brain mass with midline shift of 6.8 mm with differential including subacute hemorrhage versus neoplastic process. The patient was accepted in transfer by Dr. Barth for neurosurgical evaluation here at [facility] in [place]. Patient was reportedly awake and alert till around 12:45 PM today. Subsequently around 1 PM rapid response team was called as patient became unresponsive. FS glucose 105. I reached patient's bedside immediately on being notified by Dr. Calderón regarding change in neurologic status. In view of high suspicion for intracranial hemorrhage patient was transferred emergently to the ICU and intubated and placed on mechanical ventilation for airway protection and a stat head CT was ordered. 25 g mannitol IV stat was administered prior to intubation. Dr. Sutton was informed regarding change in neurologic status as well and will be evaluating head CT to decide further intervention. Clinically stable, is not oriented, appreciate psychiatry consultation patient is not competent for decision making, follow psych meds recommendation, neurology following 61-year-old female with: Encephalopathy Left basal ganglia mass with vasogenic edema and midline shift Acute respiratory failure on mechanical ventilation for airway protection Hypothyroidism h/o CVA with possible seizure activity at the time of the CVA - no seizures since and does not take AEDs Hypertension Osteoporosis Asthma Obstructive sleep apnea Bipolar disorder GERD Hyperlipidemia Chronic back pain Plan Neuro: Head CT done on 07/16 with no significant change compared to MRI brain per radiology. EEG did not show any seizure activity. Anticonvulsant started on 07/16: fosphenytoin loading followed by maintenance dose. Continue Decadron 4 million g IV every 6 hourly. Received mannitol 25 g IV 1 dose. continue mannitol every 6 hourly. Scheduled for biopsy of brain mass for 07/17 -done. Cardiovascular: Bradycardia noted. Remains hypertensive. We will use dopamine if needed if patient develops hypotension secondary to bradycardia. Pulmonary: Intubated for airway protection. Continue mechanical ventilation. End-tidal CO2 monitoring. Vent bundle, bronchodilators as needed. GI/liver: N.p.o. for now. OG tube placed for medications. Renal/: IV hydration, strict intake output, monitor and replete electrolytes, follow BN creatinine. Awaiting pathology report. Antibiotic prophylaxis per neurosurgery Heme: Follow CBC and coags. Endocrine: SSI for glycemic control if needed. Ruled out hypoglycemia during rapid response. Prophylaxis: PPI/SCDs. No subcu heparin or Lovenox until cleared by neurosurgery. cleared by all CAN TRANSFER BACK TO [facility] HER PRIMARY ONCOLOGY IS DR THOMAS HERNANDEZ IN [facility] Discharge Planning TRANSFER BACK TO [place] NEED SNF [place] Discussed with is the patient, nurse, family - daughter at bedside Mia Elizalde MD Jul 23, 2017 11:39
[2017-07-23] MEDS: ATORVASTATIN 40 MG TAB PO SCH (21:51)
[2017-07-23] MEDS: QUEtiapine FUMARATE 25 MG TAB PO SCH (21:52)
[2017-07-24] VITALS (8 sets, daily range): BP systolic 100–122; BP diastolic 61–69; PULSE 48–59; RESP 16–20; TEMP 97.2–98.4; O2SAT 93–97
[2017-07-24] MEDS: DEXAMETHASONE SOD PHOS 4 MG/ML VIAL IV PUSH SCH ×4 (00:59→17:59)
[2017-07-24] MEDS: levETIRAcetam INJ 500 MG in SODIUM CHLORIDE 0.9% INJ 100 ML IV SCH ×2 (00:59→12:38)
[2017-07-24] MEDS: CHLORHEXIDINE GLUCONATE 2 % 1 PACK (2 CLOTHS) TOP SCH (04:00)
[2017-07-24] MEDS: PHENYTOIN SODIUM 100 MG CAP PO SCH ×3 (06:31→21:29)
[2017-07-24] MEDS: LEVOTHYROXINE SODIUM 150 MCG TAB PO SCH (06:31)
[2017-07-24] MEDS: FOSPHENYTOIN SODIUM 100 MG PE/2 ML VIAL IV SCH ×3 (06:32→21:30)
[2017-07-24] MEDS: CHLORHEXIDINE 0.12% (ORAL KIT) 15 ML CUP MT SCH ×2 (08:00→20:00)
[2017-07-24] MEDS: SODIUM CHLOR 0.9% 1000 ML INJ 1,000 ML IV SCH ×2 (08:08→21:30)
[2017-07-24] MEDS: FAMOTIDINE 20 MG TAB PO SCH ×2 (08:32→21:29)
[2017-07-24] MEDS: FERROUS SULFATE 325 MG (65 MG ELEMENTAL IRON) TAB PO SCH ×2 (08:32→09:00)
[2017-07-24] MEDS: DOCUSATE SODIUM 100 MG CAP PO SCH ×2 (08:32→21:29)
[2017-07-24] MEDS: PANTOPRAZOLE SOD 40 MG DELAYED RELEASE TAB PO SCH (08:33)
[2017-07-24] MEDS: ALLOPURINOL 100 MG TAB PO SCH ×2 (08:33→21:29)
[2017-07-24] MEDS: DOCUSATE SODIUM 50 MG/SENNA 8.6 MG TAB PO SCH ×2 (08:33→21:29)
[2017-07-24] MEDS: CITALOPRAM HYDROBROMIDE 20 MG TAB PO SCH (08:33)
--- NOTE | 2017-07-24 08:44 | HHI.PR ---
Subjective Remarks In bed, more awake and alert today. Family at bedside. Patient denies any fever or chills. No seizures or new motor deficit. Sattign well. no sob. no cough. Back pain is controlled by meds. No n/v/d/c. Objective Vitals Vital Signs Date Time Temp Pulse Resp B/P (MAP) Pulse Ox O2 Delivery O2 Flow Rate FiO2 07/24/17 08:00 49 07/24/17 08:00 98.4 49 16 122/69 (86) 95 07/24/17 07:00 95 Nasal Cannula 2.00 07/24/17 04:00 98.4 49 16 117/69 (85) 96 07/24/17 04:00 49 07/24/17 00:00 48 07/24/17 00:00 98.0 50 16 116/65 (82) 97 07/23/17 20:00 98.2 50 16 103/59 (74) 94 07/23/17 20:00 50 07/23/17 19:48 94 Nasal Cannula 2.00 07/23/17 19:00 96 Nasal Cannula 2.00 07/23/17 16:00 56 07/23/17 16:00 98.6 56 16 103/58 (73) 94 07/23/17 12:00 98.7 54 17 105/60 (75) 94 07/23/17 12:00 54 I/O 07/23/17 07/23/17 07/23/17 07/24/17 07/24/17 07/24/17 07:00 15:00 23:00 07:00 15:00 23:00 Intake Total 1105 ml 105 ml 1000 ml 585 ml Output Total 2200 ml 1700 ml 1000 ml Balance -1095 ml 105 ml -700 ml -415 ml Intake Oral 480 ml IV Total 1105 ml 105 ml 1000 ml 105 ml Output Urine Total 2200 ml 1700 ml 1000 ml # Voids 6 # Bowel Movements 0 0 Result Diagram: 07/19/17 2348 Imaging Last Impressions Head CT 07/17/17 0000 Signed Impressions: Service Date/Time: Monday, July 17, 2017 11:28 - CONCLUSION: 1. Status post biopsy of left brain mass. Orlando Tavarez MD Chest X-Ray 07/16/17 1430 Signed Impressions: Service Date/Time: June 18:32 - CONCLUSION: Endotracheal tube tip is at the grupo. Slight retraction suggested. Israel Ruelas MD Brain MRI 07/15/17 0000 Signed Impressions: Service Date/Time: Saturday, July 15, 2017 15:42 - CONCLUSION: Left basal ganglia mass with moderate associated vasogenic edema. Mild-moderate hemispheric mass effect. Serpiginous enhancement in the contralateral right mid to high convexity frontal region. Israel Ruelas MD Objective Remarks GENERAL: Awake and alert only speaks Togolese-daughter translating-patient has been deemed to be not competent to make her medical decisions per psychiatry SKIN: Warm and dry. HEAD: Atraumatic. Normocephalic. EYES: Pupils equal and round. No scleral icterus. No injection or drainage. Extraocular muscles intact ENT: No nasal bleeding or discharge. Mucous membranes pink and moist. Tongue is midline NECK: Trachea midline. No JVD. Supple CARDIOVASCULAR: Regular rate and rhythm. S1-S2 no S3 or S4 no heave or thrill or rub or gallop RESPIRATORY: No accessory muscle use. Clear to auscultation. Breath sounds equal bilaterally. GASTROINTESTINAL: Abdomen soft, non-tender, nondistended. Hepatic and splenic margins not palpable. MUSCULOSKELETAL: Extremities without clubbing, cyanosis, or edema. No obvious deformities. NEUROLOGICAL: Awake and alert. No obvious cranial nerve deficits. Motor grossly within normal limits. Five out of 5 muscle strength in the arms and legs. Normal speech. 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 The lesions had abnormal signal intensity and and characteristics consistent with a possible neoplastic, inflammatory, or infectious process. A stereotactic biopsy of the lesions was indicated. The aete-qw-nked details of the procedure, its indications, alternatives, risks and potential complications were fully discussed with the patient. The patient fully understood. All questions were answered. No guarantees were given. The patient voiced requesting the procedure and provided informed consents. The patient was offered the alternative of not having aggressive management. DETAILS OF THE SURGICAL PROCEDURE Preoperative planning Prior to the surgery the patient underwent an MRI of the brain according to the stereotactic protocol. The information from the MRI scan was transferred to the operating room via the hospital network and the preoperative planning of the lesion was made. A julia was made at the patients operative site according to the hospital policy. Surgical positioning The patient was then brought to the operating room. After induction of general anesthesia endotracheal intubation was performed. Bkilateral carlos hose and sequential compression devices were placed and kept throughout the procedure. The patient was positioned supine on a 3080 table over a soft mattress. All pressure points were carefully padded with an egg crate mattress. The eyes were tapped shut after ointment was applied by the anesthesiologist to prevent corneal abrasion. A Shannon hugger was placed over the exposed lower body to maintain control of the core body temperature. The head was held in rigid fixation using the Bravo head of drama. Intraoperative registration The rigid body was attached to the [employer] headholder. Intraoperative registration was then performed with the [employer] Quad. The lesion was located in the three planes, sagittal, axial and coronal. An entry point was selected in the scalp. Surgical Approach and stereotactic biopsy The skin was prepped and draped in the usual sterile fashion. A linear incision in the left frontal region selected by the planning was outlined. The area was infiltrated with 1% lidocaine with epinephrine 1:100,000 dilution. A skin incision was made with a #10 blade. Small subgaleal bleeders were controlled with a bipolar a small self-retaining retractor was placed in the incision. The fascia and muscle were incised with a Bovie and retracted at each side. The Midas Freddy was brought into the field and a bur hole was made with an AM-8 drill bit. The duramatter was coagulated with a bipolar and opening increased for pressure and a very small corticotomy performed. At this point of the procedure the stereotactic biopsy arm was brought into the field and secured to the head of drama. The college physics instructor was brought into the field, and the trajectory on the biopsy arm was created following the previously selected trajectory. Then, a stereotactic needle was carefully inserted into the brain at the center of the lesion and by gentle aspiration two initial biopsies were obtained, one of which was sent to the lab for frozen section, while the second kept for permanent histological annalysis. Meanwhile, additional specimens were obtained for permanent histologic analysis. At this point in the procedure , after waiting for awhile, the frozen section was called in and reported as lymphoma. The biopsy needle was carefully removed and the stereotactic device was removed. The incision was irrigated with a large amount of saline. A piece of Gelfoam was placed over the surface of the brain and a bur hole cover was placed. The incision was closed in layers. 3-0 Vicryl with interrupted sutures were used to close the fascial layers and galea. The skin was closed with chip. A sterile dressing was applied. At the end of the procedure the sponge, needle and instrument counts were all correct. Estimated blood loss was minimal. No blood transfusion was given. The patient received preoperative prophylactic antibiotics. No intraoperative complications occurred. The patient was transferred to the recovery room in stable condition. Miguel Sutton MD Jul 17, 2017 17:40 A/P Problem List: (1) Brain mass ICD Code: G93.9 - Disorder of brain, unspecified (2) Dementia without behavioral disturbance ICD Code: F03.90 - Unspecified dementia without behavioral disturbance (3) Hypertension ICD Code: I10 - Essential (primary) hypertension (4) Hyperlipidemia ICD Code: E78.5 - Hyperlipidemia, unspecified (5) Seizure ICD Code: R56.9 - Unspecified convulsions Assessment and Plan Ms. Sun is a 61-year-old female who was brought to the emergency room at [facility] in [place] for increasing confusion, slurred speech, and right-sided weakness for four days. CT of the head was performed and showed a brain mass with midline shift of 6.8 mm with differential including subacute hemorrhage versus neoplastic process. The patient was accepted in transfer by Dr. Barth for neurosurgical evaluation here at [facility] in [place]. Patient was reportedly awake and alert till around 12:45 PM today. Subsequently around 1 PM rapid response team was called as patient became unresponsive. FS glucose 105. I reached patient's bedside immediately on being notified by Dr. Calderón regarding change in neurologic status. In view of high suspicion for intracranial hemorrhage patient was transferred emergently to the ICU and intubated and placed on mechanical ventilation for airway protection and a stat head CT was ordered. 25 g mannitol IV stat was administered prior to intubation. Dr. Sutton was informed regarding change in neurologic status as well and will be evaluating head CT to decide further intervention. Clinically stable, is not oriented, appreciate psychiatry consultation patient is not competent for decision making, follow psych meds recommendation, neurology following 61-year-old female with: Encephalopathy Left basal ganglia mass with vasogenic edema and midline shift Acute respiratory failure on mechanical ventilation for airway protection Hypothyroidism h/o CVA with possible seizure activity at the time of the CVA - no seizures since and does not take AEDs Hypertension Osteoporosis Asthma Obstructive sleep apnea Bipolar disorder GERD Hyperlipidemia Chronic back pain Plan Neuro: Head CT done on 07/16 with no significant change compared to MRI brain per radiology. EEG did not show any seizure activity. Anticonvulsant started on 07/16: fosphenytoin loading followed by maintenance dose. Continue Decadron 4 million g IV every 6 hourly. Received mannitol 25 g IV 1 dose. continue mannitol every 6 hourly. Scheduled for biopsy of brain mass for 07/17 -done. Cardiovascular: Bradycardia noted. Remains hypertensive. We will use dopamine if needed if patient develops hypotension secondary to bradycardia. Pulmonary: Intubated for airway protection. Continue mechanical ventilation. End-tidal CO2 monitoring. Vent bundle, bronchodilators as needed. GI/liver: N.p.o. for now. OG tube placed for medications. Renal/: IV hydration, strict intake output, monitor and replete electrolytes, follow BN creatinine. Awaiting pathology report. Antibiotic prophylaxis per neurosurgery Heme: Follow CBC and coags. Endocrine: SSI for glycemic control if needed. Ruled out hypoglycemia during rapid response. Prophylaxis: PPI/SCDs. No subcu heparin or Lovenox until cleared by neurosurgery. cleared by all CAN TRANSFER BACK TO [facility] HER PRIMARY ONCOLOGY IS DR THOMAS HERNANDEZ IN [facility] Discharge Planning TRANSFER BACK TO [place] WILL NEED SNF AT [place] Discussed with is the patient, nurse, family - daughter at bedside Mia Elizalde MD Jul 24, 2017 08:44
[2017-07-24] MEDS: ACETAMINOPHEN/HYDROcodone 325 MG/10 MG TAB PO PRN (15:43)
[2017-07-24] MEDS: ONDANSETRON HCL 4 MG/2 ML VIAL IV PUSH PRN (18:06)
[2017-07-24] MEDS: ATORVASTATIN 40 MG TAB PO SCH (21:29)
[2017-07-24] MEDS: QUEtiapine FUMARATE 25 MG TAB PO SCH (21:29)
[2017-07-25] VITALS (8 sets, daily range): BP systolic 73–146; BP diastolic 49–81; PULSE 46–56; RESP 13–18; TEMP 97–98.6; O2SAT 96–99
[2017-07-25] MEDS: CHLORHEXIDINE GLUCONATE 2 % 1 PACK (2 CLOTHS) TOP SCH (03:09)
[2017-07-25] MEDS: LEVOTHYROXINE SODIUM 150 MCG TAB PO SCH (05:51)
[2017-07-25] MEDS: DEXAMETHASONE SOD PHOS 4 MG/ML VIAL IV PUSH SCH ×4 (05:52→21:55)
[2017-07-25] MEDS: PHENYTOIN SODIUM 100 MG CAP PO SCH ×2 (05:52→13:35)
[2017-07-25] MEDS: FOSPHENYTOIN SODIUM 100 MG PE/2 ML VIAL IV SCH ×3 (05:54→21:01)
[2017-07-25] MEDS: DOCUSATE SODIUM 100 MG CAP PO SCH ×2 (10:14→20:38)
[2017-07-25] MEDS: DOCUSATE SODIUM 50 MG/SENNA 8.6 MG TAB PO SCH ×2 (10:15→20:38)
[2017-07-25] MEDS: FERROUS SULFATE 325 MG (65 MG ELEMENTAL IRON) TAB PO SCH (10:15)
[2017-07-25] MEDS: CITALOPRAM HYDROBROMIDE 20 MG TAB PO SCH (10:15)
[2017-07-25] MEDS: PANTOPRAZOLE SOD 40 MG DELAYED RELEASE TAB PO SCH (10:15)
[2017-07-25] MEDS: FAMOTIDINE 20 MG TAB PO SCH ×2 (10:15→20:38)
[2017-07-25] MEDS: ALLOPURINOL 100 MG TAB PO SCH ×2 (10:15→20:38)
[2017-07-25] MEDS: ACETAMINOPHEN/HYDROcodone 325 MG/10 MG TAB PO PRN ×2 (12:18→13:36)
[2017-07-25] MEDS: levETIRAcetam INJ 500 MG in SODIUM CHLORIDE 0.9% INJ 100 ML IV SCH ×3 (12:23)
[2017-07-25] MEDS: SODIUM CHLOR 0.9% 1000 ML INJ 1,000 ML IV SCH (12:26)
--- NOTE | 2017-07-25 13:31 | HHI.PR ---
Subjective Remarks awake and alert, british speaking no complains of headaches mild right sided weakness ff all commands Objective Vitals Vital Signs Date Time Temp Pulse Resp B/P (MAP) Pulse Ox O2 Delivery O2 Flow Rate FiO2 07/25/17 08:16 98.2 56 18 146/81 (102) 97 07/25/17 04:00 97.0 50 18 117/69 (85) 98 07/25/17 03:57 50 07/25/17 00:00 97.8 49 18 101/63 (76) 96 07/25/17 00:00 47 07/24/17 23:17 48 07/24/17 20:00 97.2 53 18 117/69 (85) 94 07/24/17 20:00 54 07/24/17 16:00 97.8 59 20 103/66 (78) 93 I/O 07/24/17 07/24/17 07/24/17 07/25/17 07/25/17 07/25/17 07:00 15:00 23:00 07:00 15:00 23:00 Intake Total 585 ml 120 ml 400 ml Output Total 1000 ml Balance -415 ml 120 ml 400 ml Intake Oral 480 ml 120 ml 400 ml IV Total 105 ml Output Urine Total 1000 ml # Voids 6 6 # Bowel Movements 0 1 Imaging Last Impressions Head CT 07/17/17 0000 Signed Impressions: Service Date/Time: Monday, July 17, 2017 11:28 - CONCLUSION: 1. Status post biopsy of left brain mass. Orlando Tavarez MD Chest X-Ray 07/16/17 1430 Signed Impressions: Service Date/Time: June 18:32 - CONCLUSION: Endotracheal tube tip is at the grupo. Slight retraction suggested. Israel Ruelas MD Brain MRI 07/15/17 0000 Signed Impressions: Service Date/Time: Saturday, July 15, 2017 15:42 - CONCLUSION: Left basal ganglia mass with moderate associated vasogenic edema. Mild-moderate hemispheric mass effect. Serpiginous enhancement in the contralateral right mid to high convexity frontal region. 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 The lesions had abnormal signal intensity and and characteristics consistent with a possible neoplastic, inflammatory, or infectious process. A stereotactic biopsy of the lesions was indicated. The [id number] details of the procedure, its indications, alternatives, risks and potential complications were fully discussed with the patient. The patient fully understood. All questions were answered. No guarantees were given. The patient voiced requesting the procedure and provided informed consents. The patient was offered the alternative of not having aggressive management. DETAILS OF THE SURGICAL PROCEDURE Preoperative planning Prior to the surgery the patient underwent an MRI of the brain according to the stereotactic protocol. The information from the MRI scan was transferred to the operating room via the hospital network and the preoperative planning of the lesion was made. A julia was made at the patients operative site according to the hospital policy. Surgical positioning The patient was then brought to the operating room. After induction of general anesthesia endotracheal intubation was performed. Bkilateral carlos hose and sequential compression devices were placed and kept throughout the procedure. The patient was positioned supine on a 3080 table over a soft mattress. All pressure points were carefully padded with an egg crate mattress. The eyes were tapped shut after ointment was applied by the anesthesiologist to prevent corneal abrasion. A Shannon hugger was placed over the exposed lower body to maintain control of the core body temperature. The head was held in rigid fixation using the Bravo header setup operator. Intraoperative registration The rigid body was attached to the Bravo headholder. Intraoperative registration was then performed with the [employer]. The lesion was located in the three planes, sagittal, axial and coronal. An entry point was selected in the scalp. Surgical Approach and stereotactic biopsy The skin was prepped and draped in the usual sterile fashion. A linear incision in the left frontal region selected by the planning was outlined. The area was infiltrated with 1% lidocaine with epinephrine 1:100,000 dilution. A skin incision was made with a #10 blade. Small subgaleal bleeders were controlled with a bipolar a small self-retaining retractor was placed in the incision. The fascia and muscle were incised with a Bovie and retracted at each side. The Midas Freddy was brought into the field and a bur hole was made with an AM-8 drill bit. The duramatter was coagulated with a bipolar and opening increased for pressure and a very small corticotomy performed. At this point of the procedure the stereotactic biopsy arm was brought into the field and secured to the header setup operator. The bus driver school was brought into the field, and the trajectory on the biopsy arm was created following the previously selected trajectory. Then, a stereotactic needle was carefully inserted into the brain at the center of the lesion and by gentle aspiration two initial biopsies were obtained, one of which was sent to the lab for frozen section, while the second kept for permanent histological annalysis. Meanwhile, additional specimens were obtained for permanent histologic analysis. At this point in the procedure , after waiting for awhile, the frozen section was called in and reported as lymphoma. The biopsy needle was carefully removed and the stereotactic device was removed. The incision was irrigated with a large amount of saline. A piece of Gelfoam was placed over the surface of the brain and a bur hole cover was placed. The incision was closed in layers. 3-0 Vicryl with interrupted sutures were used to close the fascial layers and galea. The skin was closed with chip. A sterile dressing was applied. At the end of the procedure the sponge, needle and instrument counts were all correct. Estimated blood loss was minimal. No blood transfusion was given. The patient received preoperative prophylactic antibiotics. No intraoperative complications occurred. The patient was transferred to the recovery room in stable condition. Miguel Sutton MD Jul 17, 2017 17:40 A/P Problem List: (1) Brain mass ICD Code: G93.9 - Disorder of brain, unspecified (2) Dementia without behavioral disturbance ICD Code: F03.90 - Unspecified dementia without behavioral disturbance (3) Hypertension ICD Code: I10 - Essential (primary) hypertension (4) Hyperlipidemia ICD Code: E78.5 - Hyperlipidemia, unspecified (5) Seizure ICD Code: R56.9 - Unspecified convulsions Assessment and Plan Ms. Sun is a 61-year-old female who was brought to the emergency room at [facility] in [place] for increasing confusion, slurred speech, and right-sided weakness for four days. CT of the head was performed and showed a brain mass with midline shift of 6.8 mm with differential including subacute hemorrhage versus neoplastic process. The patient was accepted in transfer by Dr. Barth for neurosurgical evaluation here at [facility] in [place]. Patient was reportedly awake and alert till around 12:45 PM today. Subsequently around 1 PM rapid response team was called as patient became unresponsive. FS glucose 105. I reached patient's bedside immediately on being notified by Dr. Calderón regarding change in neurologic status. In view of high suspicion for intracranial hemorrhage patient was transferred emergently to the ICU and intubated and placed on mechanical ventilation for airway protection and a stat head CT was ordered. 25 g mannitol IV stat was administered prior to intubation. Dr. Sutton was informed regarding change in neurologic status as well and will be evaluating head CT to decide further intervention. Clinically stable, is not oriented, appreciate psychiatry consultation patient is not competent for decision making, follow psych meds recommendation, neurology following 61-year-old female with: S/P brain biopsy- Lymphoma on pathology Encephalopathy Left basal ganglia mass with vasogenic edema and midline shift Acute respiratory failure on mechanical ventilation for airway protection Hypothyroidism h/o CVA with possible seizure activity at the time of the CVA - no seizures since and does not take AEDs Hypertension Osteoporosis Asthma Obstructive sleep apnea Bipolar disorder GERD Hyperlipidemia Chronic back pain 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 Endocrine: SSI for glycemic control if needed. Ruled out hypoglycemia during rapid response. Prophylaxis: PPI/SCDs. No subcu heparin or Lovenox until cleared by neurosurgery. Discharge Planning SnF- came from Ori Wen MD Jul 25, 2017 13:31
[2017-07-25] MEDS ORDERED: PHENYTOIN INJ 1,000 MG in SODIUM CHLORIDE 0.9% INJ 100 ML IV ONE (14:30)
[2017-07-25] MEDS ORDERED: NALOXONE HCL 0.4 MG/ML AMP IV PUSH ONE (14:30)
--- NOTE | 2017-07-25 14:47 | HHI.PR ---
Addendum to Inpatient Note Addendum Reason: Additional Documentation Additional Information sudden change in MS , now ? SZ - patient unresponsive , pupils pin point some slight twitching of the right foot, = facial asymmetry no gag stat BS- 106 stat CMP, dilantin level now stat ABG shows acute respiratory acidosis, compensated - ph 7.38 pC02- 48 HC03 - 28 - stat head CT. gave x 1 IV Narcan- no response - stat bedside EEG - Neurology consult. Give IV dilantin 1 gm now - transfer to [facility]- monitor MS and respiration- may need intubation for c02 retention if no improvement in MS. neurochecks - consulted and discuss with Dr. Barker - transfer service - keep NPO for now- Ori Zavala MD Jul 25, 2017 14:47
[2017-07-25 14:54] LABS: ALBUMIN 3.1 GM/DL (3.4-5.0); ALT (GPT) 57 U/L (10-53); AST (GOT) 29 U/L (15-37); BLOOD UREA NITROGEN 13 MG/DL (7-18); CALCIUM 8.2 MG/DL (8.5-10.1); CHLORIDE 107 MEQ/L (98-107); CREATININE 0.62 MG/DL (0.50-1.00); GLOMERULAR FILTRATION RATE 97 ML/MIN (>89); GLUCOSE,RANDOM 109 MG/DL (74-106); SODIUM (NA) 143 MEQ/L (136-145)
[2017-07-25 14:57] LABS: ALKALINE PHOSPHATASE 119 U/L (45-117); PHENYTOIN (DILANTIN) 14.1 MCG/ML (10.0-20.0); TOTAL BILIRUBIN ADULT 0.2 MG/DL (0.2-1.0); TOTAL PROTEIN 6.4 GM/DL (6.4-8.2)
--- NOTE | 2017-07-25 15:36 | RADRPT ---
EXAM DATE/TIME: 07/25/2017 14:37 [place] COMPARISON: CT BRAIN W/O CONTRAST, July 16, 2017, 13:47. MRI BRAIN W & W/O CONTRAST, July 15, 2017, 15:42. C T BRAIN W/O CONTRAST, July 17, 2017, 11:28. INDICATIONS : Altered mental status. RADIATION DOSE: 56.35 CTDIvol (mGy) MEDICAL HISTORY : Lymphoma. Stroke SURGICAL HISTORY : Cholecystectomy. ENCOUNTER: Initial ACUITY: 1 day PAIN SCALE: Non-responsive LOCATION: Bilateral head TECHNIQUE: Multiple contiguous axial images were obtained of the head. Using automated exposure control and adj ustment of the mA and/or kV according to patient size, radiation dose was kept as low as reasonably a chievable to obtain optimal diagnostic quality images. DICOM format image data is available electro nically for review and comparison. FINDINGS: CEREBRUM: Again noted is a 3.2 cm mass at the left basal ganglia/caudate region. This mass has been biopsy. Air was seen on the prior CT examination. The air has resolved. There is persistent mass effect on the l ateral ventricles with 4-5 mm of focal midline shift at the level of the mass. The mass does demonstr ate some increased density that was present after the biopsy. This could represent some degree of hem orrhage. There is surrounding vasogenic edema seen throughout the left hemisphere. The basal cisterns are open. There is no evidence of acute infarction. No extra-axial fluid collections are seen. POSTERIOR FOSSA: The cerebellum and brainstem are intact. The 4th ventricle is midline. The cerebellopontine angle i s unremarkable. EXTRACRANIAL: The visualized portion of the orbits is intact. SKULL: The patient is status post left frontal biopsy procedure with defect in the skull and overlying skin chip. CONCLUSION: Persistent 3.2 cm mass seen in the left basal ganglia/caudate region. This appears more prominent. Th is demonstrates increased density which could represent some degree of hemorrhage. Some increased den sity was present on the prior postoperative CT examination. The previously seen air has resolved. The re continues to be vasogenic edema and focal left to right midline shift. Israel Davis MD on July 25, 2017 at 15:28 Board Certified Radiologist. This report was verified electronically.
[2017-07-25] MEDS ORDERED: ATROPINE SULFATE 1 MG/10 ML SYRINGE ONE (15:47)
[2017-07-25] MEDS ORDERED: TERBUTALINE INJ 1 MG/ML AMP SQ PRN (16:30)
[2017-07-25] MEDS ORDERED: DOPamine 800 MG/500 ML INJ 500 ML IV PRN (16:30)
--- NOTE | 2017-07-25 16:45 | HHI.CCPN ---
Subjective Remarks/Hospital Course 07/16: Ms. Sun is a 61-year-old female who was brought to the emergency room at [facility] in [place] for increasing confusion , slurred speech, and right-sided weakness for four days. CT of the head was performed and showed a brain mass with midline shift of 6.8 mm with differential including subacute hemorrhage versus neoplastic process. The patient was accepted in transfer by Dr. Barth for neurosurgical evaluation here at [facility] in [place]. Patient was reportedly awake and alert till around 12:45 PM today. Subsequently around 1 PM rapid response team was called as patient became unresponsive. FS glucose 105. I reached patient's bedside immediately on being notified by Dr. Calderón regarding change in neurologic status. In view of high suspicion for intracranial hemorrhage patient was transferred emergently to the ICU and intubated and placed on mechanical ventilation for airway protection and a stat head CT was ordered. 25 g mannitol IV stat was administered prior to intubation. Dr. Sutton was informed regarding change in neurologic status as well and will be evaluating head CT to decide further intervention. 07/17: Sedated, arousable, orally intubated on mechanical ventilation. For brain biopsy today. 07/18: Stereotactic brain biopsy performed yesterday. Procedure was well tolerated and blood pressure control is acceptable. No seizures overnight. Awaiting pathology report. 07/25: Patient underwent stereotactic brain biopsy on 07/17 pathology of which shows lymphoma. Patient was on the floor and had been placed on p.o. Dilantin as well as Keppra IV. She developed a sudden change in neurologic status earlier today with loss of consciousness and unresponsiveness. A stat head CT was done and patient was transferred to ICU and critical care was reconsulted by last year. I evaluated the patient following arrival to the ICU. At that time she was lethargic though grimacing with painful stimuli. Stat head CT had just been completed and EEG was being initiated. There was some question of twitching noted on the floor which stopped spontaneously. Objective Vital Signs Date Time Temp Pulse Resp B/P (MAP) Pulse Ox O2 Delivery O2 Flow Rate FiO2 07/25/17 15:00 98 Nasal Cannula 6.00 07/25/17 14:00 47 07/25/17 08:16 98.2 18 146/81 (102) 07/22/17 07:45 21 Intake and Output 07/25/17 07/25/17 07/26/17 08:00 16:00 00:00 Intake Total 400 ml 120 ml Balance 400 ml 120 ml Result Diagram: 07/25/17 1415 Other Results Laboratory Tests Test 07/25/17 14:03 Blood Gas Puncture Site RT RADIAL Blood Gas Patient Temperature 98.6 Blood Gas HCO3 29 mmol/L (22-26) Blood Gas Base Excess 3.9 mmol/L (-2-2) Blood Gas Oxygen Saturation 96 % (90-100) Arterial Blood pH 7.38 (7.380-7.420) Arterial Blood Partial Pressure CO2 49 mmHg (38-42) Arterial Blood Partial Pressure O2 111 mmHg (61-120) Arterial Blood Oxygen Content 15.0 Vol % (12.0-20.0) Arterial Blood Carboxyhemoglobin 1.2 % (0-4) Arterial Blood Methemoglobin 1.1 % (0-2) Blood Gas Hemoglobin 11.0 G/DL (12.0-16.0) Oxygen Delivery Device NASAL CANNULA Blood Gas Liter Flow 2 L/M Imaging Last Impressions Brain MRI 07/15/17 0000 Signed Impressions: Service Date/Time: Saturday, July 15, 2017 15:42 - CONCLUSION: Left basal ganglia mass with moderate associated vasogenic edema. Mild-moderate hemispheric mass effect. Serpiginous enhancement in the contralateral right mid to high convexity frontal region. 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 The lesions had abnormal signal intensity and and characteristics consistent with a possible neoplastic, inflammatory, or infectious process. A stereotactic biopsy of the lesions was indicated. The [id number] details of the procedure, its indications, alternatives, risks and potential complications were fully discussed with the patient. The patient fully understood. All questions were answered. No guarantees were given. The patient voiced requesting the procedure and provided informed consents. The patient was offered the alternative of not having aggressive management. DETAILS OF THE SURGICAL PROCEDURE Preoperative planning Prior to the surgery the patient underwent an MRI of the brain according to the stereotactic protocol. The information from the MRI scan was transferred to the operating room via the hospital network and the preoperative planning of the lesion was made. A julia was made at the patients operative site according to the hospital policy. Surgical positioning The patient was then brought to the operating room. After induction of general anesthesia endotracheal intubation was performed. Bkilateral carlos hose and sequential compression devices were placed and kept throughout the procedure. The patient was positioned supine on a 3080 table over a soft mattress. All pressure points were carefully padded with an egg crate mattress. The eyes were tapped shut after ointment was applied by the anesthesiologist to prevent corneal abrasion. A Shannon hugger was placed over the exposed lower body to maintain control of the core body temperature. The head was held in rigid fixation using the Bravo headrig sawyer. Intraoperative registration The rigid body was attached to the PeerReach headholder. Intraoperative registration was then performed with the [employer]. The lesion was located in the three planes, sagittal, axial and coronal. An entry point was selected in the scalp. Surgical Approach and stereotactic biopsy The skin was prepped and draped in the usual sterile fashion. A linear incision in the left frontal region selected by the planning was outlined. The area was infiltrated with 1% lidocaine with epinephrine 1:100,000 dilution. A skin incision was made with a #10 blade. Small subgaleal bleeders were controlled with a bipolar a small self-retaining retractor was placed in the incision. The fascia and muscle were incised with a Bovie and retracted at each side. The Midas Freddy was brought into the field and a bur hole was made with an AM-8 drill bit. The duramatter was coagulated with a bipolar and opening increased for pressure and a very small corticotomy performed. At this point of the procedure the stereotactic biopsy arm was brought into the field and secured to the headrig sawyer. The is project manager was brought into the field, and the trajectory on the biopsy arm was created following the previously selected trajectory. Then, a stereotactic needle was carefully inserted into the brain at the center of the lesion and by gentle aspiration two initial biopsies were obtained, one of which was sent to the lab for frozen section, while the second kept for permanent histological annalysis. Meanwhile, additional specimens were obtained for permanent histologic analysis. At this point in the procedure , after waiting for awhile, the frozen section was called in and reported as lymphoma. The biopsy needle was carefully removed and the stereotactic device was removed. The incision was irrigated with a large amount of saline. A piece of Gelfoam was placed over the surface of the brain and a bur hole cover was placed. The incision was closed in layers. 3-0 Vicryl with interrupted sutures were used to close the fascial layers and galea. The skin was closed with chip. A sterile dressing was applied. At the end of the procedure the sponge, needle and instrument counts were all correct. Estimated blood loss was minimal. No blood transfusion was given. The patient received preoperative prophylactic antibiotics. No intraoperative complications occurred. The patient was transferred to the recovery room in stable condition. Miguel Sutton MD Jul 17, 2017 17:40 Objective Remarks HEENT/ Neuro: Encephalopathic/stuporous, grimacing with painful stimuli, moving all 4 extremities, reaching up towards nose on insertion of nasopharyngeal airway with both hands., no pallor, no icterus, tongue/ mucosa moist. Pupils bilaterally 2 mm, reactive. Garber over left parietal region Neck: Supple: Chest/Pulm: Clear. Good air entry bilaterally, no wheezing or crackles CVS: S1-S2 regular, no murmur, no JVD GI/abdomen: soft, nontender, bowel sounds active, no guarding Extremities: warm bilaterally, no edema, well perfused. A/P Assessment and Plan 61-year-old female with: Encephalopathy Left basal ganglia mass with vasogenic edema and midline shift status post biopsy Hypothyroidism h/o CVA with possible seizure activity at the time of the CVA - no seizures since and does not take AEDs Hypertension Osteoporosis Asthma Obstructive sleep apnea Bipolar disorder GERD Hyperlipidemia Plan Neuro: Avoid sedatives, follow neuro status. Status post brain mass biopsy on -lymphoma. Head CT done on 07/25 with some increase in vasogenic edema and hyperdense area and left basal ganglia mass. EEG did not show any seizure activity. Anticonvulsant started on 07/16: fosphenytoin loading followed by maintenance dose. Continue Decadron 3 mg IV every 8 hourly. Dilantin 1 g IV ordered on 07/25 by last year prior to transferring to ICU. Neurology consult requested for further evaluation. Follow-up report of EEG done following arrival to the ICU. Cardiovascular: Bradycardia noted. Dopamine if needed if patient develops hypotension secondary to bradycardia. Pulmonary: Nasopharyngeal airway placed for maintaining airway. Holding off on intubation at this time. If neurologic status worsens or patient has recurrent seizures will consider intubation. bronchodilators as needed. GI/liver: N.p.o. for now. . Renal/: IV hydration, strict intake output, monitor and replete electrolytes, follow BN creatinine. ID: No antibiotics at this time. Heme: Follow CBC and coags. Endocrine: SSI for glycemic control if needed. Prophylaxis: PPI/SCDs. No subcu heparin or Lovenox until cleared by neurosurgery. Condition critical. Discussed with Dr. Zavala. Discussed with patient's family in detail regarding plan of care and they voiced understanding on 07/25. Ashwin Barker MD Jul 25, 2017 16:45
--- NOTE | 2017-07-25 18:58 | MG ---
cc: Sathish Duffy MD, PhD Sathish Duffy MD PhD TEST #[id number]. TECHNIQUE: 17-channel EEG DESCRIPTION: The background rhythm reveals mild slowing in the theta range, more so over the left hemisphere than over the right at about 5-6 Hz, amplitude is 20-40 microvolts. There is some muscle artifact. There are no epileptiform discharges present. INTERPRETATION: Abnormal study consistent with a mild to moderate encephalopathy. There is focal slowing of the left hemisphere. Recommend correlation with an imaging study. There is no sign of any seizure activity. Sathish Duffy MD, PhD NEIL/ , 06:47 PM , 06:57 PM
[2017-07-25] MEDS: QUEtiapine FUMARATE 25 MG TAB PO SCH (21:01)
[2017-07-25] MEDS: ATORVASTATIN 40 MG TAB PO SCH (21:01)
[2017-07-26] VITALS (8 sets, daily range): BP systolic 104–125; BP diastolic 61–73; PULSE 47–56; RESP 20–28; TEMP 97.8–99.2; O2SAT 94–100
[2017-07-26] MEDS: levETIRAcetam INJ 500 MG in SODIUM CHLORIDE 0.9% INJ 100 ML IV SCH ×3 (00:12→21:37)
[2017-07-26] MEDS: SODIUM CHLOR 0.9% 1000 ML INJ 1,000 ML IV SCH ×2 (01:51→13:29)
[2017-07-26] MEDS: CHLORHEXIDINE GLUCONATE 2 % 1 PACK (2 CLOTHS) TOP SCH (04:00)
[2017-07-26] MEDS: DEXAMETHASONE SOD PHOS 4 MG/ML VIAL IV PUSH SCH ×3 (06:10→21:37)
[2017-07-26] MEDS: FOSPHENYTOIN SODIUM 100 MG PE/2 ML VIAL IV SCH ×3 (06:10→22:37)
[2017-07-26] MEDS: LEVOTHYROXINE SODIUM 150 MCG TAB PO SCH (06:11)
[2017-07-26] MEDS: CITALOPRAM HYDROBROMIDE 20 MG TAB PO SCH (07:40)
[2017-07-26] MEDS: PANTOPRAZOLE SOD 40 MG DELAYED RELEASE TAB PO SCH (07:40)
[2017-07-26] MEDS: ALLOPURINOL 100 MG TAB PO SCH ×2 (07:40→21:38)
[2017-07-26] MEDS: DOCUSATE SODIUM 50 MG/SENNA 8.6 MG TAB PO SCH ×2 (07:40→21:38)
[2017-07-26] MEDS: DOCUSATE SODIUM 100 MG CAP PO SCH ×2 (07:40→21:38)
[2017-07-26] MEDS: FERROUS SULFATE 325 MG (65 MG ELEMENTAL IRON) TAB PO SCH (07:40)
[2017-07-26] MEDS: FAMOTIDINE 20 MG TAB PO SCH ×2 (07:40→21:38)
[2017-07-26] MEDS: CHLORHEXIDINE 0.12% (ORAL KIT) 15 ML CUP MT SCH ×2 (07:45→20:00)
--- NOTE | 2017-07-26 11:27 | MB ---
cc: Sathish Duffy MD, PhD DATE: 07/26/2017 ADDENDUM: The patient is also on Dilantin. Her level yesterday was 14.1. Would recommend continue current dose of phenytoin. Additional history was obtained as well. Apparently yesterday the patient became acutely unresponsive with twitching of the right foot. The stat EEG at that time revealed focal slowing, but no epileptiform activity; however, this could have been a focal seizure. She was given a gram of Dilantin. I would recommend continuing her maintenance Dilantin. Also, still increase Keppra dose as noted above. Sathish Duffy MD, PhD NEIL/TL , 11:01 AM , 11:26 AM
--- NOTE | 2017-07-26 11:31 | MB ---
cc: Sathish Duffy MD, PhD DATE: 07/26/2017 REASON FOR CONSULTATION: Mental status changes. HISTORY OF PRESENT ILLNESS: This is a 61-year-old woman who presented initially to [facility] for increasing confusion, slurred speech, and right-sided weakness with 4-day history and a CT of the brain showed a brain mass with midline shift in the left hemisphere. She was transferred to [facility] for neurosurgery. She has undergone biopsy of the lesion. Apparently, she has also had some seizure activity where her daughter states that she has twitching on the right side of the face and loses consciousness. Apparently, she developed some more confusion. Neurology is consulted. CURRENT MEDICATIONS: 1. Decadron 3 mg IV q.8 hours. 2. Terbutaline. 3. Iron sulfate. 4. Protonix. 5. Keppra 500 mg IV b.i.d. 6. Hydrocodone as needed. 7. Morphine sulfate as needed. NEUROLOGICAL EXAMINATION: VITAL SIGNS: Blood pressure is 113/61, pulse is 56, respirations 26, temperature 99 degrees. HIGHER CORTICAL FUNCTION: Obtained through her daughter, who speaks English. She is alert and oriented. She can tell us the year, where she is, etc. Follows commands. CRANIAL NERVES: There is a trace right upper motor neuron VII palsy. MOTOR EXAM: She is weak in the right arm and the right leg at 4/5. Normal strength on the left. Reflexes are symmetric. DIAGNOSTIC STUDIES: A CT of the brain done yesterday. There is a 3.2 cm mass in the left basal ganglia caudate region with possible some hemorrhage within the mass. There is edema around the tumor as well. She did have a brain MRI 07/15/2017 showing a left basal ganglia mass with moderate vasogenic edema with mass effect. 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 White count 6000; hemoglobin 12.6; hematocrit 37.9%; platelet count 310,000. PT 10.7, INR 1.1, PTT 23.7. Sodium is 143, potassium 3.8, chloride 107, CO2 is 30, BUN is 13, creatinine 0.62, AST is 29, ALT is 57, alkaline phosphatase 119. IMPRESSION: Left basal ganglia mass which appears to be a lymphoma on biopsy. There may be a small amount of hemorrhage based on previous CT scan. Mental status changes may be related to mass effect versus focal seizures. RECOMMENDATION: I would like to get an EEG, also increase the Keppra to 500 mg IV q.6 hours for the possibility of focal seizures. EEG yesterday did not show any seizure activity, although this does not rule out underlying seizures. Sathish Duffy MD, PhD NEIL/KAY , 10:57 AM , 11:30 AM
--- NOTE | 2017-07-26 13:21 | MB ---
cc: Evy Melendez MD DATE: 07/26/2017 CHIEF COMPLAINT: DIAL MOUNTER lymphoma. HISTORY OF PRESENT ILLNESS: The patient is a 61-year-old lady Tanzanian-speaking only, who was admitted to the hospital on 07/14/2017 for further evaluation of confusion, slurred speech, and right-sided weakness. She was initially seen in the emergency room at [facility], and she was transferred to [facility] for neurosurgical evaluation. She had a CT scan of the head showed a brain mass with midline shift of 6.8 mm. Imaging studies showed an MRI brain from 07/15/2017 with left basal ganglia mass with moderate associated vasogenic edema, mild to moderate hemispheric mass effect. She was seen by the neurosurgery service and on 07/17/2017 underwent a stereotactic biopsy of the left basal ganglia brain mass. Pathology report has returned as diffuse large B cell lymphoma with cells that are CD20 positive, C79A positive, BCL6 positive, BCL2 positive, MUM1 positive. Cells are negative for CD10. Ki-67 is 70%. She has been evaluated by the neurology service, for seizure activity and persistent encephalopathy. The patient is seen at bedside. Due to Tanzanian-speaking only and some mild confusion, majority of the history was obtained from chart review and also from conversation with her daughter. PAST MEDICAL HISTORY: 1. Hypothyroidism. 2. 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 3. Hypertension. 4. Osteoporosis. 5. Asthma. 6. Obstructive sleep apnea. 7. Bipolar disorder. 8. Non-Hodgkin's lymphoma. 9. Acid reflux. 10. Hyperlipidemia. 11. Nephrolithiasis. 12. Thyroid nodule. PAST SURGICAL HISTORY: 1. Cholecystectomy. 2. Temporary stent in the kidney placed in 04/2015 and removed in 12/2016 due to obstructive lymphadenopathy. ALLERGIES: NO KNOWN DRUG ALLERGIES. FAMILY HISTORY: Son with questionable diagnosis of lymphoma. SOCIAL HISTORY: Past smoker, not a current smoker. Occasional social alcohol abuse. No illicit drugs. Good support system with her daughter. REVIEW OF SYSTEMS: Unable to obtain due to the patient's mental status. PHYSICAL EXAMINATION: GENERAL: Well-developed, well-nourished lady, in no distress. SKIN: No rashes. HEENT: Head with surgical incision that is healing. Eyes: No scleral icterus. NECK: Supple with no palpable lymphadenopathy. CARDIOVASCULAR: Regular rate and rhythm. No murmurs. RESPIRATORY: Clear to auscultation bilaterally. ABDOMEN: Soft, nontender, and nondistended. Bowel sounds present. EXTREMITIES: With no edema. NEUROLOGIC: Awake and alert, responds to daughter, some mild confusion per daughter. ASSESSMENT AND PLAN: New diagnosis of central nervous system lymphoma. Daughter reports that her mother had previously been treated in 04/2015 for stage IV diffuse large B cell lymphoma. She received 6 cycles of R-CHOP under the direction of Dr. Alves at [facility] in [place]. She reports that her mother was found to be in a complete remission after treatment. She tolerated chemotherapy well, aside from some side effects with the first infusion of rituximab. At this time, we will obtain further information to see if the lymphoma is isolated in the brain versus if this has returned elsewhere. We will obtain CT scan of the chest, abdomen and pelvis. We will obtain bone marrow biopsy. We will obtain cerebrospinal fluid analysis for flow cytometry and cytology. If the ophthalmology service comes to the hospital, would also obtain an eye exam. We will also order HIV testing. Treatment would depend on location and full extent of disease. If tumor is isolated to the CSF and no other sites of disease, would treat with high-dose methotrexate as well as rituximab. If tumor is found in other sites of the body, would have more aggressive systemic therapy if the patient is able to tolerate. Inpatient oncology service will continue to follow. During the weekdays, we will obtain records from Dr. Alves's office. MD ULISES Wiely/KAY , 12:52 PM , 01:20 PM SONNY
[2017-07-26 14:38] LABS: PROTHROMBIN TIME - PATIENT 10.5 SEC (9.8-11.6)
[2017-07-26] MEDS ORDERED: DIATRIZOATE MEGLUM/DIATRIZOATE SOD 9 ML CUP PO ONE (15:00)
--- NOTE | 2017-07-26 15:36 | HHI.CCPN ---
Subjective Remarks/Hospital Course 07/16: Ms. Sun is a 61-year-old female who was brought to the emergency room at [facility] in [place] for increasing confusion , slurred speech, and right-sided weakness for four days. CT of the head was performed and showed a brain mass with midline shift of 6.8 mm with differential including subacute hemorrhage versus neoplastic process. The patient was accepted in transfer by Dr. Barth for neurosurgical evaluation here at [facility] in [place]. Patient was reportedly awake and alert till around 12:45 PM today. Subsequently around 1 PM rapid response team was called as patient became unresponsive. FS glucose 105. I reached patient's bedside immediately on being notified by Dr. Calderón regarding change in neurologic status. In view of high suspicion for intracranial hemorrhage patient was transferred emergently to the ICU and intubated and placed on mechanical ventilation for airway protection and a stat head CT was ordered. 25 g mannitol IV stat was administered prior to intubation. Dr. Sutton was informed regarding change in neurologic status as well and will be evaluating head CT to decide further intervention. 07/17: Sedated, arousable, orally intubated on mechanical ventilation. For brain biopsy today. 07/18: Stereotactic brain biopsy performed yesterday. Procedure was well tolerated and blood pressure control is acceptable. No seizures overnight. Awaiting pathology report. 07/25: Patient underwent stereotactic brain biopsy on 07/17 pathology of which shows lymphoma. Patient was on the floor and had been placed on p.o. Dilantin as well as Keppra IV. She developed a sudden change in neurologic status earlier today with loss of consciousness and unresponsiveness. A stat head CT was done and patient was transferred to ICU and critical care was reconsulted by last year. I evaluated the patient following arrival to the ICU. At that time she was lethargic though grimacing with painful stimuli. Stat head CT had just been completed and EEG was being initiated. There was some question of twitching noted on the floor which stopped spontaneously. 07/26: No acute changes overnight. CT abdomen and pelvis pending. Formal swallow evaluation pending, and initiation of diet. Objective Vital Signs Date Time Temp Pulse Resp B/P (MAP) Pulse Ox O2 Delivery O2 Flow Rate FiO2 07/26/17 12:00 99.2 49 21 104/65 (78) 98 07/26/17 07:00 Nasal Cannula 2.00 07/22/17 07:45 21 Intake and Output 07/26/17 07/26/17 07/27/17 08:00 16:00 00:00 Intake Total 1100 ml Output Total 2000 ml Balance -900 ml Result Diagram: 07/25/17 1415 Imaging Last Impressions Head CT 07/25/17 0000 Signed Impressions: Service Date/Time: Tuesday, July 25, 2017 14:37 - CONCLUSION: Persistent 3.2 cm mass seen in the left basal ganglia/caudate region. This appears more prominent. This demonstrates increased density which could represent some degree of hemorrhage. Some increased density was present on the prior postoperative CT examination. The previously seen air has resolved. There continues to be vasogenic edema and focal left to right midline shift. Israel Davis MD Chest X-Ray 07/16/17 1430 Signed Impressions: Service Date/Time: June 18:32 - CONCLUSION: Endotracheal tube tip is at the grupo. Slight retraction suggested. Israel Ruelas MD Brain MRI 07/15/17 0000 Signed Impressions: Service Date/Time: Saturday, July 15, 2017 15:42 - CONCLUSION: Left basal ganglia mass with moderate associated vasogenic edema. Mild-moderate hemispheric mass effect. Serpiginous enhancement in the contralateral right mid to high convexity frontal region. Israel Ruelas MD Last Impressions Brain MRI 07/15/17 0000 Signed Impressions: Service Date/Time: Saturday, July 15, 2017 15:42 - CONCLUSION: Left basal ganglia mass with moderate associated vasogenic edema. Mild-moderate hemispheric mass effect. Serpiginous enhancement in the contralateral right mid to high convexity frontal region. Israel Ruelas MD Procedures Date of Surgery: Jul 17, 2017 Preoperative Diagnosis: Left basal ganglia brain mass Postoperative Diagnosis: Left basal ganglia SLED MAKER lymphoma Procedure: Stereotactic biopsy of Left basal ganglia brain mass Anesthesia: general endotracheal Surgeon: Miguel Sutton Produce Inspector(s): Eva Smith Operation and Findings: INDICATIONS FOR THE PROCEDURE Ms Sun is a 61 year-old female who presented with neurological findings of right sided weakness and was found to have left basal ganglia enhancing mass. The lesions had abnormal signal intensity and and characteristics consistent with a possible neoplastic, inflammatory, or infectious process. A stereotactic biopsy of the lesions was indicated. The [id number] details of the procedure, its indications, alternatives, risks and potential complications were fully discussed with the patient. The patient fully understood. All questions were answered. No guarantees were given. The patient voiced requesting the procedure and provided informed consents. The patient was offered the alternative of not having aggressive management. DETAILS OF THE SURGICAL PROCEDURE Preoperative planning Prior to the surgery the patient underwent an MRI of the brain according to the stereotactic protocol. The information from the MRI scan was transferred to the operating room via the hospital network and the preoperative planning of the lesion was made. A julia was made at the patients operative site according to the hospital policy. Surgical positioning The patient was then brought to the operating room. After induction of general anesthesia endotracheal intubation was performed. Bkilateral carlos hose and sequential compression devices were placed and kept throughout the procedure. The patient was positioned supine on a 3080 table over a soft mattress. All pressure points were carefully padded with an egg crate mattress. The eyes were tapped shut after ointment was applied by the anesthesiologist to prevent corneal abrasion. A Shannon hugger was placed over the exposed lower body to maintain control of the core body temperature. The head was held in rigid fixation using the Bravo head usher. Intraoperative registration The rigid body was attached to the Bravo headholder. Intraoperative registration was then performed with the [facility]. The lesion was located in the three planes, sagittal, axial and coronal. An entry point was selected in the scalp. Surgical Approach and stereotactic biopsy The skin was prepped and draped in the usual sterile fashion. A linear incision in the left frontal region selected by the planning was outlined. The area was infiltrated with 1% lidocaine with epinephrine 1:100,000 dilution. A skin incision was made with a #10 blade. Small subgaleal bleeders were controlled with a bipolar a small self-retaining retractor was placed in the incision. The fascia and muscle were incised with a Bovie and retracted at each side. The Midas Freddy was brought into the field and a bur hole was made with an AM-8 drill bit. The duramatter was coagulated with a bipolar and opening increased for pressure and a very small corticotomy performed. At this point of the procedure the stereotactic biopsy arm was brought into the field and secured to the head usher. The telecine operator was brought into the field, and the trajectory on the biopsy arm was created following the previously selected trajectory. Then, a stereotactic needle was carefully inserted into the brain at the center of the lesion and by gentle aspiration two initial biopsies were obtained, one of which was sent to the lab for frozen section, while the second kept for permanent histological annalysis. Meanwhile, additional specimens were obtained for permanent histologic analysis. At this point in the procedure , after waiting for awhile, the frozen section was called in and reported as lymphoma. The biopsy needle was carefully removed and the stereotactic device was removed. The incision was irrigated with a large amount of saline. A piece of Gelfoam was placed over the surface of the brain and a bur hole cover was placed. The incision was closed in layers. 3-0 Vicryl with interrupted sutures were used to close the fascial layers and galea. The skin was closed with chip. A sterile dressing was applied. At the end of the procedure the sponge, needle and instrument counts were all correct. Estimated blood loss was minimal. No blood transfusion was given. The patient received preoperative prophylactic antibiotics. No intraoperative complications occurred. The patient was transferred to the recovery room in stable condition. Miguel Sutton MD Jul 17, 2017 17:40 Objective Remarks HEENT/ Neuro: GCS 15 .awake and responsive .moving all 4 extremities, reaching up towards nose on insertion of nasopharyngeal airway with both hands., no pallor, no icterus, tongue/ mucosa moist. Slight right facial droop . Pupils bilaterally 2 mm, reactive. [place] over left parietal region, without erythema or drainage Neck: Supple: Chest/Pulm: Clear. Good air entry bilaterally, no wheezing or crackles CVS: S1-S2 regular, no murmur, no JVD GI/abdomen: soft, nontender, bowel sounds active, no guarding Extremities: warm bilaterally, no edema, well perfused. A/P Assessment and Plan 61-year-old female with: Encephalopathy Left basal ganglia mass with vasogenic edema and midline shift status post biopsy Hypothyroidism h/o CVA with possible seizure activity at the time of the CVA - no seizures since and does not take AEDs Hypertension Osteoporosis Asthma Obstructive sleep apnea Bipolar disorder GERD Hyperlipidemia Plan Neuro: Avoid sedatives, follow neuro status. Status post brain mass biopsy on -lymphoma. Head CT done on 07/25 with some increase in vasogenic edema and hyperdense area and left basal ganglia mass. EEG did not show any seizure activity. Anticonvulsant started on 07/16: fosphenytoin loading followed by maintenance dose. Continue Decadron 3 mg IV every 8 hourly. Dilantin 1 g IV ordered on 07/[address] Herring prior to transferring to ICU. Neurology following Maureen Briseno increased to 500 mg every 6 hours. follow-up report of EEG done following arrival to the ICU, revealed no seizure activity. Repeat EEG per neurology Cardiovascular: Bradycardia noted. Dopamine if needed if patient develops hypotension secondary to bradycardia. Pulmonary: Incentive spirometry. Maintain O2 sat greater than 92% if neurologic status worsens or patient has recurrent seizures will consider intubation. bronchodilators as needed. GI/liver: N.p.o. for now. Obtain formal swallow evaluation in the a.m. Renal/: IV hydration, strict intake output, monitor and replete electrolytes, follow BN creatinine. ID: No antibiotics at this time. Heme: Follow CBC and coags. Endocrine: SSI for glycemic control if needed. Prophylaxis: PPI/SCDs. No subcu heparin or Lovenox until cleared by neurosurgery. Level 3 follow-up Discussed with patient's family (daughter) at beside. Physician Laxmi Salvador MD Jul 26, 2017 15:36
[2017-07-26] MEDS: ATORVASTATIN 40 MG TAB PO SCH (21:38)
[2017-07-26] MEDS: QUEtiapine FUMARATE 25 MG TAB PO SCH (21:38)
[2017-07-27] VITALS (8 sets, daily range): BP systolic 95–123; BP diastolic 55–64; PULSE 45–86; RESP 15–25; TEMP 98–99.8; O2SAT 95–100
[2017-07-27] MEDS: levETIRAcetam INJ 500 MG in SODIUM CHLORIDE 0.9% INJ 100 ML IV SCH ×4 (03:51→21:58)
[2017-07-27] MEDS: CHLORHEXIDINE GLUCONATE 2 % 1 PACK (2 CLOTHS) TOP SCH (03:51)
[2017-07-27 04:18] LABS: HEMOGLOBIN 10.8 GM/DL (11.6-15.3); MEAN CELL VOLUME 94.4 FL (80.0-100.0); MEAN CORPUSCULAR HEMOGLOBIN 31.8 PG (27.0-34.0); MEAN CORPUSCULAR HGB CONC 33.7 % (32.0-36.0); MEAN PLATELET VOLUME 7.2 FL (7.0-11.0); PLATELET COUNT 283 TH/MM3 (150-450); RED BLOOD COUNT 3.39 MIL/MM3 (4.00-5.30); RED CELL DISTRIBUTION WIDTH 13.7 % (11.6-17.2); WHITE BLOOD COUNT 9.9 TH/MM3 (4.0-11.0)
[2017-07-27 04:43] LABS: BICARBONATE 28.5 MEQ/L (21.0-32.0); CREATININE 0.55 MG/DL (0.50-1.00); PHOSPHORUS 3.9 MG/DL (2.5-4.9)
[2017-07-27] MEDS: FOSPHENYTOIN SODIUM 100 MG PE/2 ML VIAL IV SCH ×3 (05:59→21:56)
[2017-07-27] MEDS: DEXAMETHASONE SOD PHOS 4 MG/ML VIAL IV PUSH SCH ×3 (05:59→21:57)
[2017-07-27] MEDS: LEVOTHYROXINE SODIUM 150 MCG TAB PO SCH (07:00)
[2017-07-27] MEDS: CHLORHEXIDINE 0.12% (ORAL KIT) 15 ML CUP MT SCH ×2 (08:00→20:00)
--- NOTE | 2017-07-27 08:27 | MG ---
cc: Sathish Duffy MD, PhD DATE OF THE STUDY: 07/26. TEST NUMBER: [id number]. TECHNIQUE: This is a 17 channel EEG. DESCRIPTION: The background rhythm reveals generalized slowing which is more prominent over the left hemisphere than over the right in the theta frequency. There is some muscle artifact present. No epileptiform discharges present. INTERPRETATION: Abnormal study. There is focal slowing of the left hemisphere, consistent with structural lesion. There is no evidence for epileptiform discharges. Sathish Duffy MD, PhD NEIL/SAMINA , 07:10 PM , 07:22 PM
[2017-07-27] MEDS: FERROUS SULFATE 325 MG (65 MG ELEMENTAL IRON) TAB PO SCH (09:00)
[2017-07-27] MEDS: CITALOPRAM HYDROBROMIDE 20 MG TAB PO SCH (09:00)
[2017-07-27] MEDS: DOCUSATE SODIUM 100 MG CAP PO SCH ×2 (09:00→21:55)
[2017-07-27] MEDS: FAMOTIDINE 20 MG TAB PO SCH ×2 (09:00→21:55)
[2017-07-27] MEDS: ALLOPURINOL 100 MG TAB PO SCH ×2 (09:00→21:55)
[2017-07-27] MEDS: DOCUSATE SODIUM 50 MG/SENNA 8.6 MG TAB PO SCH ×2 (09:00→21:00)
--- NOTE | 2017-07-27 09:42 | HHI.CCPN ---
Subjective Remarks/Hospital Course 07/16: Ms. Sun is a 61-year-old female who was brought to the emergency room at [facility] in [place] for increasing confusion , slurred speech, and right-sided weakness for four days. CT of the head was performed and showed a brain mass with midline shift of 6.8 mm with differential including subacute hemorrhage versus neoplastic process. The patient was accepted in transfer by Dr. Barth for neurosurgical evaluation here at [facility] in [place]. Patient was reportedly awake and alert till around 12:45 PM today. Subsequently around 1 PM rapid response team was called as patient became unresponsive. FS glucose 105. I reached patient's bedside immediately on being notified by Dr. Calderón regarding change in neurologic status. In view of high suspicion for intracranial hemorrhage patient was transferred emergently to the ICU and intubated and placed on mechanical ventilation for airway protection and a stat head CT was ordered. 25 g mannitol IV stat was administered prior to intubation. Dr. Sutton was informed regarding change in neurologic status as well and will be evaluating head CT to decide further intervention. 07/17: Sedated, arousable, orally intubated on mechanical ventilation. For brain biopsy today. 07/18: Stereotactic brain biopsy performed yesterday. Procedure was well tolerated and blood pressure control is acceptable. No seizures overnight. Awaiting pathology report. 07/25: Patient underwent stereotactic brain biopsy on 07/17 pathology of which shows lymphoma. Patient was on the floor and had been placed on p.o. Dilantin as well as Keppra IV. She developed a sudden change in neurologic status earlier today with loss of consciousness and unresponsiveness. A stat head CT was done and patient was transferred to ICU and critical care was reconsulted by last year. I evaluated the patient following arrival to the ICU. At that time she was lethargic though grimacing with painful stimuli. Stat head CT had just been completed and EEG was being initiated. There was some question of twitching noted on the floor which stopped spontaneously. 07/26: No acute changes overnight. CT abdomen and pelvis pending. Formal swallow evaluation pending, and initiation of diet. 07/27 Patient is lying inbed in NAD. Awake and alert. Objective Vital Signs Date Time Temp Pulse Resp B/P (MAP) Pulse Ox O2 Delivery O2 Flow Rate FiO2 07/27/17 04:00 98.5 46 15 109/58 (75) 100 07/26/17 19:32 Nasal Cannula 2.00 Intake and Output 07/27/17 07/27/17 07/28/17 08:00 16:00 00:00 Intake Total 0 ml Output Total 1200 ml Balance -1200 ml Result Diagram: 07/27/17 0350 07/27/17 0350 Other Results Laboratory Tests Test 07/26/17 13:52 07/27/17 03:50 Prothrombin Time 10.5 SEC Prothromb Time International Ratio 1.0 RATIO Activated Partial Thromboplast Time 24.7 SEC White Blood Count 9.9 TH/MM3 Red Blood Count 3.39 MIL/MM3 Hemoglobin 10.8 GM/DL Hematocrit 32.0 % Mean Corpuscular Volume 94.4 FL Mean Corpuscular Hemoglobin 31.8 PG Mean Corpuscular Hemoglobin Concent 33.7 % Red Cell Distribution Width 13.7 % Platelet Count 283 TH/MM3 Mean Platelet Volume 7.2 FL Blood Urea Nitrogen 9 MG/DL Creatinine 0.55 MG/DL Random Glucose 91 MG/DL Calcium Level 9.0 MG/DL Phosphorus Level 3.9 MG/DL Magnesium Level 2.0 MG/DL Sodium Level 145 MEQ/L Potassium Level 3.8 MEQ/L Chloride Level 108 MEQ/L Carbon Dioxide Level 28.5 MEQ/L Anion Gap 9 MEQ/L Estimat Glomerular Filtration Rate 112 ML/MIN Imaging Last Impressions Head CT 07/25/17 0000 Signed Impressions: Service Date/Time: Tuesday, July 25, 2017 14:37 - CONCLUSION: Persistent 3.2 cm mass seen in the left basal ganglia/caudate region. This appears more prominent. This demonstrates increased density which could represent some degree of hemorrhage. Some increased density was present on the prior postoperative CT examination. The previously seen air has resolved. There continues to be vasogenic edema and focal left to right midline shift. Israel Davis MD Chest X-Ray 07/16/17 1430 Signed Impressions: Service Date/Time: June 18:32 - CONCLUSION: Endotracheal tube tip is at the grupo. Slight retraction suggested. Israel Ruelas MD Brain MRI 07/15/17 0000 Signed Impressions: Service Date/Time: Saturday, July 15, 2017 15:42 - CONCLUSION: Left basal ganglia mass with moderate associated vasogenic edema. Mild-moderate hemispheric mass effect. Serpiginous enhancement in the contralateral right mid to high convexity frontal region. Israel Ruelas MD Procedures Date of Surgery: Jul 17, 2017 Preoperative Diagnosis: Left basal ganglia brain mass Postoperative Diagnosis: Left basal ganglia CASINO RUNNER lymphoma Procedure: Stereotactic biopsy of Left basal ganglia brain mass Anesthesia: general endotracheal Surgeon: Miguel Sutton Machine Bookkeeper(s): Eva Smith Operation and Findings: INDICATIONS FOR THE PROCEDURE Ms Sun is a 61 year-old female who presented with neurological findings of right sided weakness and was found to have left basal ganglia enhancing mass. The lesions had abnormal signal intensity and and characteristics consistent with a possible neoplastic, inflammatory, or infectious process. A stereotactic biopsy of the lesions was indicated. The [id number] details of the procedure, its indications, alternatives, risks and potential complications were fully discussed with the patient. The patient fully understood. All questions were answered. No guarantees were given. The patient voiced requesting the procedure and provided informed consents. The patient was offered the alternative of not having aggressive management. DETAILS OF THE SURGICAL PROCEDURE Preoperative planning Prior to the surgery the patient underwent an MRI of the brain according to the stereotactic protocol. The information from the MRI scan was transferred to the operating room via the hospital network and the preoperative planning of the lesion was made. A julia was made at the patients operative site according to the hospital policy. Surgical positioning The patient was then brought to the operating room. After induction of general anesthesia endotracheal intubation was performed. Bkilateral carlos hose and sequential compression devices were placed and kept throughout the procedure. The patient was positioned supine on a 3080 table over a soft mattress. All pressure points were carefully padded with an egg crate mattress. The eyes were tapped shut after ointment was applied by the anesthesiologist to prevent corneal abrasion. A Shannon hugger was placed over the exposed lower body to maintain control of the core body temperature. The head was held in rigid fixation using the Bravo head setter. Intraoperative registration The rigid body was attached to the [place] headholder. Intraoperative registration was then performed with the SmartyPants Vitamins. The lesion was located in the three planes, sagittal, axial and coronal. An entry point was selected in the scalp. Surgical Approach and stereotactic biopsy The skin was prepped and draped in the usual sterile fashion. A linear incision in the left frontal region selected by the planning was outlined. The area was infiltrated with 1% lidocaine with epinephrine 1:100,000 dilution. A skin incision was made with a #10 blade. Small subgaleal bleeders were controlled with a bipolar a small self-retaining retractor was placed in the incision. The fascia and muscle were incised with a Bovie and retracted at each side. The Midas Freddy was brought into the field and a bur hole was made with an AM-8 drill bit. The duramatter was coagulated with a bipolar and opening increased for pressure and a very small corticotomy performed. At this point of the procedure the stereotactic biopsy arm was brought into the field and secured to the head setter. The information technology project manager was brought into the field, and the trajectory on the biopsy arm was created following the previously selected trajectory. Then, a stereotactic needle was carefully inserted into the brain at the center of the lesion and by gentle aspiration two initial biopsies were obtained, one of which was sent to the lab for frozen section, while the second kept for permanent histological annalysis. Meanwhile, additional specimens were obtained for permanent histologic analysis. At this point in the procedure , after waiting for awhile, the frozen section was called in and reported as lymphoma. The biopsy needle was carefully removed and the stereotactic device was removed. The incision was irrigated with a large amount of saline. A piece of Gelfoam was placed over the surface of the brain and a bur hole cover was placed. The incision was closed in layers. 3-0 Vicryl with interrupted sutures were used to close the fascial layers and galea. The skin was closed with chip. A sterile dressing was applied. At the end of the procedure the sponge, needle and instrument counts were all correct. Estimated blood loss was minimal. No blood transfusion was given. The patient received preoperative prophylactic antibiotics. No intraoperative complications occurred. The patient was transferred to the recovery room in stable condition. Miguel Sutton MD Jul 17, 2017 17:40 Objective Remarks GENERAL: Patient is 61 yo lying in bed in NAD SKIN: Warm and dry. HEAD: Normocephalic. EYES: No scleral icterus. No injection or drainage. NECK: Supple, trachea midline. No JVD or lymphadenopathy. CARDIOVASCULAR: Regular rate and rhythm without murmurs, gallops, or rubs. RESPIRATORY: Breath sounds equal bilaterally. No accessory muscle use. GASTROINTESTINAL: Abdomen soft, non-tender, nondistended. MUSCULOSKELETAL: No cyanosis, or edema. Neuro: Awake and alert A/P Assessment and Plan 61-year-old female with Encephalopathy- improving Left basal ganglia mass with vasogenic edema and midline shift status post biopsy Hypothyroidism h/o CVA with possible seizure activity at the time of the CVA - no seizures since and does not take AEDs Hypertension Osteoporosis Asthma Obstructive sleep apnea Bipolar disorder GERD Hyperlipidemia Plan Neuro: Avoid sedatives, follow neuro status. Status post brain mass biopsy on -lymphoma. Head CT done on 07/25 with some increase in vasogenic edema and hyperdense area and left basal ganglia mass. EEG did not show any seizure activity. Continue Decadron 3 mg IV every 8 hourly. On Keppra, Cerebyx 100mg Q8, Dilantin level 14.1 on 07/25 Neuro, NSG following CV: Monitor HR and BP keep MAP>64mmHg Check echo to eval LV function Pulmo: Continue with oxygen keep sats >92% GI/liver: Speech eval, diet per speech Renal/: Monitor renal function, electrolytes replacement per protocol d/c IVF ID: Monitor for signs of infections ( Fever, WBC) Heme: Monitor CBC and coags. On Fe sulfate 325mg daily Heme Onc is following for diffuse Large B cell lymphoma For CT chest, abd/pelvis Endocrine: SSI for glycemic control if needed. Prophylaxis: PPI/SCDs. No subcu heparin or Lovenox until cleared by neurosurgery. Level 2 Siobhan Pete MD Jul 27, 2017 09:42
--- NOTE | 2017-07-27 11:37 | PD.ONC.PN ---
Subjective Subjective Remarks Afebrile overnight. Per daughter at bedside, patient remains confused with slurred speech. no change since yesterday. Objective Data Date Time Temp Pulse Resp B/P (MAP) Pulse Ox O2 Delivery O2 Flow Rate FiO2 07/27/17 10:09 98 Room Air 07/27/17 10:00 99.8 86 16 112/63 (79) 97 07/27/17 04:00 98.5 46 15 109/58 (75) 100 07/27/17 04:00 46 07/27/17 00:00 98.0 45 17 123/64 (83) 100 07/27/17 00:00 45 07/26/17 20:00 97.8 47 23 116/73 (87) 100 07/26/17 20:00 47 07/26/17 19:32 94 Nasal Cannula 2.00 07/26/17 19:00 99 Nasal Cannula 2.00 07/26/17 16:00 49 07/26/17 16:00 99.0 49 28 112/64 (80) 99 07/26/17 12:00 99.2 49 21 104/65 (78) 98 07/26/17 12:00 49 07/27/17 07/27/17 07/27/17 07:00 15:00 23:00 Intake Total 0 ml Output Total 1200 ml Balance -1200 ml Result Diagram: 07/27/17 0350 07/27/17 0350 Laboratory Results Laboratory Tests Test 07/26/17 13:52 07/27/17 03:50 Prothrombin Time 10.5 SEC Prothromb Time International Ratio 1.0 RATIO Activated Partial Thromboplast Time 24.7 SEC White Blood Count 9.9 TH/MM3 Red Blood Count 3.39 MIL/MM3 Hemoglobin 10.8 GM/DL Hematocrit 32.0 % Mean Corpuscular Volume 94.4 FL Mean Corpuscular Hemoglobin 31.8 PG Mean Corpuscular Hemoglobin Concent 33.7 % Red Cell Distribution Width 13.7 % Platelet Count 283 TH/MM3 Mean Platelet Volume 7.2 FL Blood Urea Nitrogen 9 MG/DL Creatinine 0.55 MG/DL Random Glucose 91 MG/DL Calcium Level 9.0 MG/DL Phosphorus Level 3.9 MG/DL Magnesium Level 2.0 MG/DL Sodium Level 145 MEQ/L Potassium Level 3.8 MEQ/L Chloride Level 108 MEQ/L Carbon Dioxide Level 28.5 MEQ/L Anion Gap 9 MEQ/L Estimat Glomerular Filtration Rate 112 ML/MIN Administered Medications Medications (Trade) Dose Ordered Sig/Thaddeus Route PRN Reason Start Time Stop Time Status Last Admin Dose Admin Senna/Docusate Sodium (Maddy-Colace) 1 tab BID PO 07/15/17 09:00 07/26/17 21:38 Magnesium Hydroxide (Milk Of Magnesia Liq) 30 ml Q12H PRN PO Mild constipation 07/14/17 22:15 07/22/17 10:03 Albuterol Sulfate (Albuterol Neb) 2.5 mg Q4HR NEB PRN NEB sob/wheezing 07/14/17 22:30 07/14/17 23:41 Allopurinol (Zyloprim) 100 mg BID PO 07/15/17 09:00 07/26/17 21:38 Atorvastatin Calcium (Lipitor) 40 mg HS PO 07/15/17 21:00 07/26/17 21:38 Citalopram Hydrobromide (CeleXA) 20 mg DAILY PO 07/15/17 09:00 07/26/17 07:40 Levothyroxine Sodium (Synthroid) 150 mcg DAILY@0700 PO 07/15/17 07:00 07/26/17 06:11 Quetiapine Fumarate (SEROquel) 25 mg HS PO 07/15/17 21:00 07/26/17 21:38 Albuterol/ Ipratropium (Duoneb Neb) 1 ampule Q4HR NEB PRN INH SHORTNESS OF BREATH 07/16/17 13:30 07/20/17 20:13 Chlorhexidine Gluconate (Peridex 0.12% Liq) 15 ml BID@08,20 MT 07/16/17 20:00 07/26/17 20:00 Famotidine (Pepcid) 20 mg BID PO 07/16/17 21:00 07/26/17 21:38 Chlorhexidine Gluconate (Chlorhexidine 2% Cloth) Taper DAILY@04 TOP 07/17/17 04:00 07/13/18 03:59 07/27/17 03:51 Fosphenytoin Sodium (Cerebyx Inj) 100 mgpe Q8HR IV 07/16/17 22:00 07/27/17 05:59 Heparin Sodium (Porcine) (Heparin Central Flush) See Protocol DAILY IV FLUSH 07/17/17 09:00 07/22/17 10:02 Sodium Chloride (NS Flush) See Protocol UNSCH PRN IV FLUSH FLUSH AFTER USING IV ACCESS 07/16/17 19:30 07/22/17 10:02 Docusate Sodium (Colace) 100 mg BID PO 07/17/17 21:00 07/26/17 21:38 Ondansetron HCl (Zofran Inj) 4 mg Q6H PRN IV PUSH NAUSEA OR VOMITING 07/17/17 10:45 07/24/17 18:06 Acetaminophen/ Hydrocodone Bitart ([place] 10-325 Mg) 1 tab Q4H PRN PO PAIN SCALE 1 TO 5 07/17/17 11:45 07/25/17 12:18 Acetaminophen/ Hydrocodone Bitart ([place] 10-325 Mg) 2 tab Q4H PRN PO PAIN SCALE 6 TO 10 07/17/17 11:45 07/24/17 15:43 Morphine Sulfate (Morphine Inj) 4 mg Q2H PRN IV PUSH PAIN SCALE 7 TO 10 07/17/17 11:45 07/20/17 09:44 Phenytoin (Dilantin) 100 mg Q8HR PO 07/22/17 14:00 Future Hold 07/25/17 13:35 Ferrous Sulfate (Ferrous Sulfate) 325 mg DAILY PO 07/24/17 09:00 07/26/17 07:40 Dexamethasone Sodium Phosphate (Decadron Inj) 3 mg Q8HR IV PUSH 07/25/17 22:00 07/27/17 05:59 Levetriacetam 500 mg/Sodium Chloride 105 ml @ 400 mls/hr Q6H IV 07/26/17 16:00 07/27/17 10:04 Objective Remarks GENERAL: Middle aged female, sitting up in bed SKIN: Warm and dry. HEAD: Normocephalic. EYES: No injection or drainage. NECK: Supple, trachea midline. CARDIOVASCULAR: Regular rate and rhythm RESPIRATORY: anterior lewis clear. GASTROINTESTINAL: Abdomen soft, non-tender, nondistended. EXTREMITIES: No cyanosis NEUROLOGICAL: awake. right sided facial droop. right sided weakness. 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 received 6 cycles of R-CHOP under the direction of Dr. Alves at [facility] in [place] (was in remission) --obtain CT C.A.P, bone marrow biopsy --LP flow cytometry and cytology --consult ophthalmology for eye exam. --HIV test. --Treatment would depend on location and full extent of disease. If tumor is isolated to the CSF and no other sites of disease, would treat with high-dose methotrexate as well as rituximab. If tumor is found in other sites of the body , would have more aggressive systemic therapy if the patient is able to tolerate. Assessment 61y/o female with CITY EDITOR lymphoma. HPI (brought forward from initial consult for continuity of care): admitted to the hospital on 07/14/2017 for further evaluation of confusion, slurred speech, and right-sided weakness. She was initially seen in the emergency room at [facility], and she was transferred to [facility] for neurosurgical evaluation. CT brain showed brain mass with midline shift of 6.8 mm. MRI brain 07/15/2017 with left basal ganglia mass with moderate associated vasogenic edema , mild to moderate hemispheric mass effect. She was seen by the neurosurgery service and on 07/17/2017 underwent a stereotactic biopsy of the left basal ganglia brain mass. Pathology report has returned as diffuse large B cell lymphoma with cells that are CD20 positive, C79A positive, BCL6 positive, BCL2 positive, MUM1 positive. Cells are negative for CD10. Ki-67 is 70%. h/o Hypothyroidism. 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 Hypertension. Osteoporosis. Asthma. Obstructive sleep apnea. Bipolar disorder. Non-Hodgkin's lymphoma. Acid reflux. Hyperlipidemia. Nephrolithiasis. Thyroid nodule. Plan 1. consult invasive radiology for bone marrow biopsy and lumbar puncture 2. records request faxed to Dr. Alves 3. consult ophthalmology for eye exam 4. await CT C.A.P d/w patient's daughter at bedside. Attending Statement The exam, history, and the medical decision-making described in the above note were completed with the assistance of the mid-level provider. I reviewed and agree with the findings presented. I attest that I had a [id number] encounter with the patient on the same day, and personally performed and documented my assessment and findings in the medical record. 61 yoF wtih history of DLBCL stage IV s/p 6 cycles of RCHOP wtih good response. Now with brain lesion biopsies as DLBCL. Rule out systemic disease. CSF evaluation, bone marrow pending. Yin Still Jul 27, 2017 11:37 Evy Melendez MD July 28, 2017 09:19
[2017-07-27] MEDS ORDERED: DIATRIZOATE MEGLUM/DIATRIZOATE SOD 9 ML CUP PO ONE (12:45)
--- NOTE | 2017-07-27 15:47 | PD.RAD ---
Post Procedure Progress Note Pre Procedure Diagnosis: (1) Brain mass Post Procedure Diagnosis: (1) Brain mass Procedure Date: Jul 27, 2017 Supervising Radiologist: Kwasi Wilkins Estimated blood loss: none Anesthesia: Local Plan of Activity Patient to Unit: Nursing Unit Patient Condition: Fair Additional Comments: LP completed without difficulty. Opening pressure 18.5 21 CC of clear csf removed. See PACS Report for procedural detail/treatment Kwasi Wilkins MD Jul 27, 2017 15:47
[2017-07-27] MEDS ORDERED: IOHEXOL 350 MG/ML 10 ML VIAL (for RAD DIAG) IVCONTRAST ONE (16:18)
[2017-07-27 17:27] LABS: CSF HISTIOCYTES 1 %; CSF LYMPHOCYTES 90 %; CSF MONOCYTES 9 %
[2017-07-27 17:34] LABS: SUPERNATE COLOR TUBE #1 CLEAR (CLEAR); VOLUME TUBE # 1 5.2 ML
[2017-07-27 17:35] LABS: WBC TUBE #1 14 /MM3 (0-10)
[2017-07-27 17:41] LABS: RBC TUBE #1 0 /MM3
[2017-07-27 17:42] LABS: CSF NEUTROPHILS 0 %
--- NOTE | 2017-07-27 18:20 | RADRPT ---
EXAM DATE/TIME: 07/27/2017 15:56 [facility] COMPARISON: No previous studies available for comparison. INDICATIONS : Mass, evaluate for metastasis. IV CONTRAST: 97 cc Omnipaque 350 (iohexol) IV ; Cumulative dose for multiple exams. RADIATION DOSE: 5.88 CTDIvol (mGy) ; Combined studies MEDICAL HISTORY : Lymphoma. Hypertension. Hypothyroidism. SURGICAL HISTORY : Cholecystectomy. ENCOUNTER: Initial ACUITY: 1 day PAIN SCALE: Non-responsive LOCATION: Bilateral chest TECHNIQUE: Volumetric scanning of the chest was performed. Using automated exposure control and adjustment of t he mA and/or kV according to patient size, radiation dose was kept as low as reasonably achievable to obtain optimal diagnostic quality images. DICOM format image data is available electronically for review and comparison. Follow-up recommendations for detected pulmonary nodules are based at a minimum on nodule size and pa tient risk factors according to Fleischner Society Guidelines. FINDINGS: There is dependent atelectasis at the lung bases. No pleural or pericardial effusion. There is no hil ar, mediastinal axillary adenopathy. No evidence for metastatic disease in the thorax. No acute bony abnormality. Left PICC line tip is in the superior vena cava. There are numerous thyroid nodules present bilateral ly but larger on the left side. CONCLUSION: 1. Atelectasis at the lung bases but no lung mass or adenopathy. No effusions. 2. Numerous bilateral thyroid nodules measuring up to about 1.5 cm in diameter. See abdomen CT for fi ndings below the diaphragm. Job Barrera MD on July 27, 2017 at 18:13 Board Certified Radiologist. This report was verified electronically.
--- NOTE | 2017-07-27 18:23 | RADRPT ---
EXAM DATE/TIME: 07/27/2017 15:56 [facility] COMPARISON: No previous studies available for comparison. INDICATIONS : Mass, evaluate for metastasis. IV CONTRAST: 97 cc Omnipaque 350 (iohexol) IV ; Cumulative dose for multiple exams. ORAL CONTRAST: Prescribed oral contrast ingested. RADIATION DOSE: 5.88 CTDIvol (mGy) ; Combined studies MEDICAL HISTORY : Lymphoma. Hypertension. Hypothyroidism. SURGICAL HISTORY : Cholecystectomy. ENCOUNTER: Initial ACUITY: 1 day PAIN SCALE: Non-responsive LOCATION: Bilateral abdomen TECHNIQUE: Volumetric scanning of the abdomen and pelvis was performed. Using automated exposure control and ad justment of the mA and/or kV according to patient size, radiation dose was kept as low as reasonably achievable to obtain optimal diagnostic quality images. DICOM format image data is available electro nically for review and comparison. FINDINGS: Mild fatty liver. No acute findings in the spleen, left adrenal or pancreas. There is a 2.5 cm right adrenal mass most likely an adenoma. Small exophytic left renal and right renal cysts. No pelvic masses or adenopathy. Mild constipation. No acute bony abnormality. CONCLUSION: 1. No acute findings abdomen pelvic CT. No definite evidence for metastatic disease. 2.5 cm likely ri ght adrenal adenoma. 2. Mild fatty liver. Job Barrera MD on July 27, 2017 at 18:18 Board Certified Radiologist. This report was verified electronically.
[2017-07-27] MEDS: QUEtiapine FUMARATE 25 MG TAB PO SCH (21:55)
[2017-07-27] MEDS: ATORVASTATIN 40 MG TAB PO SCH (21:55)
[2017-07-27] MEDS: ADULT - PICC FLUSH PRN FOR HEPARIN ALLERGY OR HIT DIAGNOSIS IV FLUSH (21:56)
[2017-07-28] VITALS (10 sets, daily range): BP systolic 98–124; BP diastolic 60–70; PULSE 46–78; RESP 18–26; TEMP 97.8–98.8; O2SAT 93–99
[2017-07-28] MEDS: CHLORHEXIDINE GLUCONATE 2 % 1 PACK (2 CLOTHS) TOP SCH (04:00)
[2017-07-28] MEDS: levETIRAcetam INJ 500 MG in SODIUM CHLORIDE 0.9% INJ 100 ML IV SCH ×4 (04:59→21:19)
[2017-07-28] MEDS: FOSPHENYTOIN SODIUM 100 MG PE/2 ML VIAL IV SCH ×3 (05:00→21:18)
[2017-07-28] MEDS: DEXAMETHASONE SOD PHOS 4 MG/ML VIAL IV PUSH SCH ×3 (05:00→21:19)
[2017-07-28 06:12] LABS: AUTOMATED NEUTROPHIL # 6.8 TH/MM3 (1.8-7.7); BASOPHIL % 0.4 % (0.0-2.0); EOSINOPHIL # 0.1 TH/MM3 (0-0.4); EOSINOPHIL % 1.3 % (0.0-4.0); HEMATOCRIT 35.5 % (35.0-46.0); HEMOGLOBIN 12.2 GM/DL (11.6-15.3); LYMPH % 24.3 % (9.0-44.0); LYMPHOCYTE # 2.5 TH/MM3 (1.0-4.8); MEAN CELL VOLUME 93.6 FL (80.0-100.0); MEAN CORPUSCULAR HEMOGLOBIN 32.2 PG (27.0-34.0); MEAN CORPUSCULAR HGB CONC 34.4 % (32.0-36.0); MEAN PLATELET VOLUME 8.5 FL (7.0-11.0); MONO % 7.3 % (0.0-8.0); MONOCYTE # 0.7 TH/MM3 (0-0.9); NEUT % 66.7 % (16.0-70.0); PLATELET COUNT 174 TH/MM3 (150-450); RED CELL DISTRIBUTION WIDTH 13.7 % (11.6-17.2); WHITE BLOOD COUNT 10.2 TH/MM3 (4.0-11.0)
[2017-07-28 06:27] LABS: ALBUMIN 3.1 GM/DL (3.4-5.0); ALT (GPT) 38 U/L (10-53); AST (GOT) 22 U/L (15-37); BICARBONATE 24.8 MEQ/L (21.0-32.0); CALCIUM 8.8 MG/DL (8.5-10.1); CHLORIDE 107 MEQ/L (98-107); CREATININE 0.65 MG/DL (0.50-1.00); GLOMERULAR FILTRATION RATE 92 ML/MIN (>89); GLUCOSE,RANDOM 80 MG/DL (74-106); PHOSPHORUS 3.2 MG/DL (2.5-4.9); SODIUM (NA) 142 MEQ/L (136-145)
[2017-07-28 06:29] LABS: ALKALINE PHOSPHATASE 121 U/L (45-117); TOTAL BILIRUBIN ADULT 0.3 MG/DL (0.2-1.0); TOTAL PROTEIN 6.9 GM/DL (6.4-8.2)
[2017-07-28] MEDS: LEVOTHYROXINE SODIUM 150 MCG TAB PO SCH (06:29)
[2017-07-28 06:35] LABS: BLOOD UREA NITROGEN 13 MG/DL (7-18)
[2017-07-28] MEDS: CHLORHEXIDINE 0.12% (ORAL KIT) 15 ML CUP MT SCH ×2 (08:00→20:00)
[2017-07-28] MEDS: ALLOPURINOL 100 MG TAB PO SCH ×2 (08:56→20:44)
[2017-07-28] MEDS: FERROUS SULFATE 325 MG (65 MG ELEMENTAL IRON) TAB PO SCH (08:56)
[2017-07-28] MEDS: DOCUSATE SODIUM 100 MG CAP PO SCH ×2 (08:56→20:43)
[2017-07-28] MEDS: FAMOTIDINE 20 MG TAB PO SCH ×2 (08:56→20:44)
[2017-07-28] MEDS: DOCUSATE SODIUM 50 MG/SENNA 8.6 MG TAB PO SCH ×2 (08:57→20:43)
[2017-07-28] MEDS: CITALOPRAM HYDROBROMIDE 20 MG TAB PO SCH (08:57)
--- NOTE | 2017-07-28 10:55 | HHI.CCPN ---
Subjective Remarks/Hospital Course 07/16: Ms. Snu is a 61-year-old female who was brought to the emergency room at [facility] in [place] for increasing confusion , slurred speech, and right-sided weakness for four days. CT of the head was performed and showed a brain mass with midline shift of 6.8 mm with differential including subacute hemorrhage versus neoplastic process. The patient was accepted in transfer by Dr. Barth for neurosurgical evaluation here at [facility] in [place]. Patient was reportedly awake and alert till around 12:45 PM today. Subsequently around 1 PM rapid response team was called as patient became unresponsive. FS glucose 105. I reached patient's bedside immediately on being notified by Dr. Calderón regarding change in neurologic status. In view of high suspicion for intracranial hemorrhage patient was transferred emergently to the ICU and intubated and placed on mechanical ventilation for airway protection and a stat head CT was ordered. 25 g mannitol IV stat was administered prior to intubation. Dr. Sutton was informed regarding change in neurologic status as well and will be evaluating head CT to decide further intervention. 07/17: Sedated, arousable, orally intubated on mechanical ventilation. For brain biopsy today. 07/18: Stereotactic brain biopsy performed yesterday. Procedure was well tolerated and blood pressure control is acceptable. No seizures overnight. Awaiting pathology report. 07/25: Patient underwent stereotactic brain biopsy on 07/17 pathology of which shows lymphoma. Patient was on the floor and had been placed on p.o. Dilantin as well as Keppra IV. She developed a sudden change in neurologic status earlier today with loss of consciousness and unresponsiveness. A stat head CT was done and patient was transferred to ICU and critical care was reconsulted by last year. I evaluated the patient following arrival to the ICU. At that time she was lethargic though grimacing with painful stimuli. Stat head CT had just been completed and EEG was being initiated. There was some question of twitching noted on the floor which stopped spontaneously. 07/26: No acute changes overnight. CT abdomen and pelvis pending. Formal swallow evaluation pending, and initiation of diet. 07/27 Patient is lying inbed in NAD. Awake and alert. 07/28: no changes in mental status. bone marrow biopsy pending for today. CT chest /abd/pelvis without signs of other remote disease. Objective Vital Signs Date Time Temp Pulse Resp B/P (MAP) Pulse Ox O2 Delivery O2 Flow Rate FiO2 07/28/17 08:00 46 07/28/17 08:00 95 Nasal Cannula 2.00 07/28/17 08:00 97.8 23 110/63 (79) Intake and Output 07/28/17 07/28/17 07/29/17 08:00 16:00 00:00 Intake Total 585 ml Output Total 850 ml Balance -265 ml Result Diagram: 07/28/17 0505 07/28/17 0515 Imaging Last Impressions Head CT 07/25/17 0000 Signed Impressions: Service Date/Time: Tuesday, July 25, 2017 14:37 - CONCLUSION: Persistent 3.2 cm mass seen in the left basal ganglia/caudate region. This appears more prominent. This demonstrates increased density which could represent some degree of hemorrhage. Some increased density was present on the prior postoperative CT examination. The previously seen air has resolved. There continues to be vasogenic edema and focal left to right midline shift. Israel Davis MD Chest X-Ray 07/16/17 1430 Signed Impressions: Service Date/Time: June 18:32 - CONCLUSION: Endotracheal tube tip is at the grupo. Slight retraction suggested. Israel Ruelas MD Brain MRI 07/15/17 0000 Signed Impressions: Service Date/Time: Saturday, July 15, 2017 15:42 - CONCLUSION: Left basal ganglia mass with moderate associated vasogenic edema. Mild-moderate hemispheric mass effect. Serpiginous enhancement in the contralateral right mid to high convexity frontal region. Israel Ruelas MD Procedures Date of Surgery: Jul 17, 2017 Preoperative Diagnosis: Left basal ganglia brain mass Postoperative Diagnosis: Left basal ganglia TICKET TAKER FERRYBOAT lymphoma Procedure: Stereotactic biopsy of Left basal ganglia brain mass Anesthesia: general endotracheal Surgeon: Miguel Sutton Sales/Marketing(s): Eva Smith Operation and Findings: INDICATIONS FOR THE PROCEDURE Ms Sun is a 61 year-old female who presented with neurological findings of right sided weakness and was found to have left basal ganglia enhancing mass. The lesions had abnormal signal intensity and and characteristics consistent with a possible neoplastic, inflammatory, or infectious process. A stereotactic biopsy of the lesions was indicated. The [id number] details of the procedure, its indications, alternatives, risks and potential complications were fully discussed with the patient. The patient fully understood. All questions were answered. No guarantees were given. The patient voiced requesting the procedure and provided informed consents. The patient was offered the alternative of not having aggressive management. DETAILS OF THE SURGICAL PROCEDURE Preoperative planning Prior to the surgery the patient underwent an MRI of the brain according to the stereotactic protocol. The information from the MRI scan was transferred to the operating room via the hospital network and the preoperative planning of the lesion was made. A julia was made at the patients operative site according to the hospital policy. Surgical positioning The patient was then brought to the operating room. After induction of general anesthesia endotracheal intubation was performed. Bkilateral carlos hose and sequential compression devices were placed and kept throughout the procedure. The patient was positioned supine on a 3080 table over a soft mattress. All pressure points were carefully padded with an egg crate mattress. The eyes were tapped shut after ointment was applied by the anesthesiologist to prevent corneal abrasion. A Shannon hugger was placed over the exposed lower body to maintain control of the core body temperature. The head was held in rigid fixation using the Bravo head cashier. Intraoperative registration The rigid body was attached to the Bravo headholder. Intraoperative registration was then performed with the [facility]. The lesion was located in the three planes, sagittal, axial and coronal. An entry point was selected in the scalp. Surgical Approach and stereotactic biopsy The skin was prepped and draped in the usual sterile fashion. A linear incision in the left frontal region selected by the planning was outlined. The area was infiltrated with 1% lidocaine with epinephrine 1:100,000 dilution. A skin incision was made with a #10 blade. Small subgaleal bleeders were controlled with a bipolar a small self-retaining retractor was placed in the incision. The fascia and muscle were incised with a Bovie and retracted at each side. The Midas Freddy was brought into the field and a bur hole was made with an AM-8 drill bit. The duramatter was coagulated with a bipolar and opening increased for pressure and a very small corticotomy performed. At this point of the procedure the stereotactic biopsy arm was brought into the field and secured to the head cashier. The knit tubing dyer was brought into the field, and the trajectory on the biopsy arm was created following the previously selected trajectory. Then, a stereotactic needle was carefully inserted into the brain at the center of the lesion and by gentle aspiration two initial biopsies were obtained, one of which was sent to the lab for frozen section, while the second kept for permanent histological annalysis. Meanwhile, additional specimens were obtained for permanent histologic analysis. At this point in the procedure , after waiting for awhile, the frozen section was called in and reported as lymphoma. The biopsy needle was carefully removed and the stereotactic device was removed. The incision was irrigated with a large amount of saline. A piece of Gelfoam was placed over the surface of the brain and a bur hole cover was placed. The incision was closed in layers. 3-0 Vicryl with interrupted sutures were used to close the fascial layers and galea. The skin was closed with chip. A sterile dressing was applied. At the end of the procedure the sponge, needle and instrument counts were all correct. Estimated blood loss was minimal. No blood transfusion was given. The patient received preoperative prophylactic antibiotics. No intraoperative complications occurred. The patient was transferred to the recovery room in stable condition. Miguel Sutton MD Jul 17, 2017 17:40 Objective Remarks GENERAL: Patient is 61 yo lying in bed in NAD SKIN: Warm and dry. HEAD: Normocephalic. EYES: No scleral icterus. No injection or drainage. NECK: Supple, trachea midline. No JVD or lymphadenopathy. CARDIOVASCULAR: Regular rate and rhythm without murmurs, gallops, or rubs. RESPIRATORY: equal chest rise. No accessory muscle use. GASTROINTESTINAL: Abdomen soft, non-tender, nondistended. MUSCULOSKELETAL: No cyanosis, or edema. Neuro: Awake and alert A/P Assessment and Plan 61-year-old female with Encephalopathy- improving Left basal ganglia mass with vasogenic edema and midline shift status post biopsy Hypothyroidism h/o CVA with possible seizure activity at the time of the CVA - no seizures since and does not take AEDs Hypertension Osteoporosis Asthma Obstructive sleep apnea Bipolar disorder GERD Hyperlipidemia Plan Neuro: Avoid sedatives, follow neuro status. Status post brain mass biopsy on -lymphoma. Head CT done on 07/25 with some increase in vasogenic edema and hyperdense area and left basal ganglia mass. EEG did not show any seizure activity. Continue Decadron 3 mg IV every 8 hourly. On Keppra, Cerebyx 100mg Q8, Dilantin level 14.1 on 07/25 Neuro, NSG following CV: Monitor HR and BP keep MAP>64mmHg Pulmo: Continue with oxygen keep sats >92% GI/liver: Speech eval, diet per speech Renal/: Monitor renal function, electrolytes replacement per protocol ID: Monitor for signs of infections ( Fever, WBC) Heme: Monitor CBC and coags. On Fe sulfate 325mg daily Heme Onc is following for diffuse Large B cell lymphoma CT chest, abd/pelvis: no signs of remote disease. Endocrine: SSI for glycemic control if needed. Prophylaxis: PPI/SCDs. No subcu heparin or Lovenox until cleared by neurosurgery. dispo: consult hospitalist service to assume care. can likely transfer out of ICU. Baldomero Sung MD July 28, 2017 10:55
--- NOTE | 2017-07-28 11:45 | PD.CONS ---
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 CT of the head was performed and showed a brain mass with midline shift of 6.8 mm - pt was transferred here for further evaluation. Patient underwent stereotactic brain biopsy on 07/17 which shows lymphoma. Ophthalmology consulted to rule out eye involvement. Pt has no current ocular complaints. History of cataract surgery in both eyes. Past Family Social History Allergies: Uncoded Allergies: cotton (Allergy, Mild, Itching, 07/14/17) Physical Exam Vital Signs Vital Signs Date Time Temp Pulse Resp B/P (MAP) Pulse Ox O2 Delivery O2 Flow Rate FiO2 07/28/17 08:00 46 07/28/17 08:00 95 Nasal Cannula 2.00 07/28/17 08:00 97.8 46 23 110/63 (79) 95 07/28/17 07:43 98 Nasal Cannula 2.00 07/28/17 04:00 98.6 50 20 115/61 (79) 95 07/28/17 04:00 50 07/28/17 03:23 97 Nasal Cannula 2.00 07/28/17 00:00 98.8 54 22 98/70 (79) 93 07/28/17 00:00 54 07/27/17 23:53 97 Nasal Cannula 2.00 07/27/17 20:31 97 Nasal Cannula 2.00 07/27/17 20:00 98.7 58 18 95/55 (68) 95 07/27/17 20:00 58 07/27/17 19:00 95 Nasal Cannula 2.00 07/27/17 16:00 98.4 52 25 97/56 (70) 98 07/27/17 12:00 99.8 53 22 119/61 (80) 98 Physical Exam Va cc at near OD 20/40, OS 20/40 EOM full OU, no diplopia CVF full OU Pupils 2-1 no APD OU IOP normal to palpation OU Anterior exam OD - normal eyelid, nasal pterygium, K clear, AC deep, pupil round, PCIOL OS - normal eyelid, C/S W&Q, K clear, AC deep, pupil round, PCIOL Dilated exam OD - ON s/p/f, ves normal, vit clear, retina flat OS - ON s/p/f, ves normal, vit clear, retina flat Laboratory Laboratory Tests Test 07/27/17 15:38 07/27/17 21:05 07/28/17 05:05 07/28/17 05:15 CSF Volume (Tube 1) 5.2 CSF Supernatant Color (tube 1) CLEAR CSF Gross Blood (Tube 1) 0 CSF WBC (Tube 1) 14 CSF RBC (Tube 1) 0 CSF Volume (Tube 2) 5.0 CSF Supernatant Color (tube 2) CLEAR CSF Gross Blood (Tube 2) 0 CSF Volume (Tube 3) 5.3 CSF Supernatant Color (tube 3) CLEAR CSF Gross Blood (Tube 3) 0 CSF Volume (Tube 4) 4.8 CSF Supernatant Color (tube 4) CLEAR CSF Gross Blood (Tube 4) 0 CSF Neutrophils 0 CSF Lymphocytes 90 CSF Monocytes 9 CSF Histiocytes 1 CSF Chloride 131 CSF Glucose 55 CSF Lactic Acid 1.8 CSF Total Protein 72.0 Hepatitis A IgM Antibody NONREACTIVE Hepatitis B Surface Antigen NONREACTIVE Hepatitis B Core IgM Antibody NONREACTIVE Hepatitis C IgG Antibody NONREACTIVE White Blood Count 10.2 Red Blood Count 3.80 Hemoglobin 12.2 Hematocrit 35.5 Mean Corpuscular Volume 93.6 Mean Corpuscular Hemoglobin 32.2 Mean Corpuscular Hemoglobin Concent 34.4 Red Cell Distribution Width 13.7 Platelet Count 174 Mean Platelet Volume 8.5 Neutrophils (%) (Auto) 66.7 Lymphocytes (%) (Auto) 24.3 Monocytes (%) (Auto) 7.3 Eosinophils (%) (Auto) 1.3 Basophils (%) (Auto) 0.4 Neutrophils # (Auto) 6.8 Lymphocytes # (Auto) 2.5 Monocytes # (Auto) 0.7 Eosinophils # (Auto) 0.1 Basophils # (Auto) 0.0 CBC Comment DIFF FINAL Differential Comment HIV (1&2) Ab and P24 Ag, 4th Gener NONREACTIVE Blood Urea Nitrogen 13 Creatinine 0.65 Random Glucose 80 Total Protein 6.9 Albumin 3.1 Calcium Level 8.8 Phosphorus Level 3.2 Magnesium Level 2.0 Uric Acid 2.5 Alkaline Phosphatase 121 Aspartate Amino Transf (AST/SGOT) 22 Alanine Aminotransferase (ALT/SGPT) 38 Lactate Dehydrogenase 145 Total Bilirubin 0.3 Sodium Level 142 Potassium Level 3.8 Chloride Level 107 Carbon Dioxide Level 24.8 Anion Gap 10 Estimat Glomerular Filtration Rate 92 Date/Time Source Procedure Growth Status 07/27/17 15:38 Cerebral Spinal Fluid Lumbar Puncture Gram Stain - Final Resulted 07/27/17 15:38 Cerebral Spinal Fluid Lumbar Puncture CSF Culture - Preliminary NO GROWTH IN 24 HOURS. Resulted Result Diagram: 07/28/17 0505 07/28/17 0515 Assessment and Plan Problem List: (1) B-cell lymphoma ICD Codes: C85.10 - Unspecified B-cell lymphoma, unspecified site Plan: No ocular involvement seen on dilated eye exam. Rufina Bullard MD July 28, 2017 11:45
[2017-07-28] MEDS ORDERED: fentaNYL CITRATE 250 MCG/5 ML AMP ONE (12:55)
[2017-07-28] MEDS ORDERED: MIDAZOLAM HCL 5 MG/5 ML VIAL ONE (12:55)
--- NOTE | 2017-07-28 14:15 | PD.RAD ---
Post CT Procedure Prog Note Pre Procedure Diagnosis: (1) B-cell lymphoma Post Procedure Diagnosis: (1) B-cell lymphoma Procedure Date: July 28, 2017 Supervising Radiologist: Israel Garvin Estimated blood loss: minimal. Anesthesia: Local, Conscious Sedation Plan of Activity Patient to Unit: Other Patient Condition: Good See PACS Report for procedural detail/treatment Biopsy Imaging Guidance: CT Side: Left Biopsy Procedure: Bone Marrow Site: left posterior iliac bone. Plan return to floor for monitoring. Israel Garvin MD July 28, 2017 14:15
[2017-07-28] MEDS ORDERED: LIDOCAINE HCL 1% 10 ML VIAL OTHER ONE (14:47)
[2017-07-28] MEDS: ATORVASTATIN 40 MG TAB PO SCH (20:44)
[2017-07-28] MEDS: QUEtiapine FUMARATE 25 MG TAB PO SCH (20:44)
[2017-07-29] VITALS (9 sets, daily range): BP systolic 87–107; BP diastolic 51–60; PULSE 45–57; RESP 15–23; TEMP 98.1–98.6; O2SAT 89–100
[2017-07-29] MEDS: CHLORHEXIDINE GLUCONATE 2 % 1 PACK (2 CLOTHS) TOP SCH (04:00)
[2017-07-29] MEDS: levETIRAcetam INJ 500 MG in SODIUM CHLORIDE 0.9% INJ 100 ML IV SCH ×4 (04:36→21:17)
[2017-07-29] MEDS: DEXAMETHASONE SOD PHOS 4 MG/ML VIAL IV PUSH SCH ×3 (05:07→21:17)
[2017-07-29] MEDS: FOSPHENYTOIN SODIUM 100 MG PE/2 ML VIAL IV SCH ×3 (05:08→21:17)
[2017-07-29 05:34] LABS: HEMATOCRIT 32.3 % (35.0-46.0); HEMOGLOBIN 10.8 GM/DL (11.6-15.3); MEAN CELL VOLUME 95.3 FL (80.0-100.0); MEAN CORPUSCULAR HEMOGLOBIN 31.9 PG (27.0-34.0); MEAN CORPUSCULAR HGB CONC 33.4 % (32.0-36.0); MEAN PLATELET VOLUME 7.5 FL (7.0-11.0); PLATELET COUNT 268 TH/MM3 (150-450); RED BLOOD COUNT 3.39 MIL/MM3 (4.00-5.30); RED CELL DISTRIBUTION WIDTH 13.9 % (11.6-17.2); WHITE BLOOD COUNT 9.1 TH/MM3 (4.0-11.0)
[2017-07-29 06:02] LABS: BICARBONATE 29.4 MEQ/L (21.0-32.0); CALCIUM 8.6 MG/DL (8.5-10.1); CREATININE 0.65 MG/DL (0.50-1.00)
[2017-07-29] MEDS: LEVOTHYROXINE SODIUM 150 MCG TAB PO SCH (06:47)
[2017-07-29] MEDS: CHLORHEXIDINE 0.12% (ORAL KIT) 15 ML CUP MT SCH ×2 (08:00→20:00)
[2017-07-29] MEDS: FAMOTIDINE 20 MG TAB PO SCH ×2 (08:52→21:16)
[2017-07-29] MEDS: DOCUSATE SODIUM 100 MG CAP PO SCH ×2 (08:52→21:16)
[2017-07-29] MEDS: CITALOPRAM HYDROBROMIDE 20 MG TAB PO SCH (08:52)
[2017-07-29] MEDS: FERROUS SULFATE 325 MG (65 MG ELEMENTAL IRON) TAB PO SCH (08:53)
[2017-07-29] MEDS: ALLOPURINOL 100 MG TAB PO SCH ×2 (09:08→21:23)
[2017-07-29] MEDS: DOCUSATE SODIUM 50 MG/SENNA 8.6 MG TAB PO SCH ×2 (09:08→21:16)
--- NOTE | 2017-07-29 10:06 | HHI.NSPN ---
(Ruby Renteria) Note Status Status: Progress Note (Ruby Renteria) Interval History Interval History 07/15: Ms. Sun is a 61-year-old female who is brought to the emergency room at [facility] for increasing confusion, slurred speech, and right-sided weakness for four days. CT of the head showed a brain mass with midline shift of 6.8 mm with differential including subacute hemorrhage versus neoplastic process. The patient was accepted in transfer by Dr. Todd for neurosurgical evaluation. No seizure activity reported. No tonic-clonic movements. No tongue biting. No incontinence of stool or urine. She remains slightly confused and does not know why she is here at the hospital. She indicates that she's been feeling fine. She denies any fever, chills, nausea, vomiting, or cough. She moves both upper and lower extremities without any focal weakness. She denies any sensory loss. She denies any headaches nausea vomiting. Denies any incontinence or stool or urine. Neurosurgical consultation was requested 07/17: The patient went to the operating room for a stereotactic biopsy of a left basal ganglia mass. Post-operatively she was admitted to the ISC unit for further care and monitoring. 07/18: This morning the patient is awake and alert in bed. She does have a headache when she is laid flat, otherwise she does not. She is having some abdominal pain. She does have some confusion still. She does have some weakness to the right side extremities. 07/19: When seen the patient is awake and alert visiting with family and watching TV. She denies any headache, dizziness or visual difficulty. She also has no pain, numbness or tingling to the extremities. She is spontaneously and purposefully moving her extremities and following commands. She is weak to the right side extremities but her muscle strength appears normal on the left. Sensation is intact to light touch. The daughter reports that earlier this morning the patient stated she was in [place] which is where she lives. Previously she has not been able to answer that question. 07/20: Doing well, weight, conversing in Estonian. Stable right hemiparesis. 07/29: Doing well, neurologically stable overnight, no reports of seizure activities. Final brain biopsy reports B cell lymphoma. (Ruby Renteria) Labs, Micro, & Vital Signs Results Date Time Temp Pulse Resp B/P (MAP) Pulse Ox O2 Delivery O2 Flow Rate FiO2 07/29/17 08:00 53 07/29/17 08:00 98.6 53 21 105/56 (72) 100 07/29/17 07:00 98 Nasal Cannula 2.00 07/29/17 04:06 97 Nasal Cannula 2.00 07/29/17 04:00 98.2 51 16 95/56 (69) 100 07/29/17 04:00 51 07/29/17 00:00 53 07/29/17 00:00 98.6 53 18 99/55 (70) 100 07/28/17 22:00 52 07/28/17 20:00 55 07/28/17 20:00 98.4 55 18 105/60 (75) 99 07/28/17 19:54 97 Nasal Cannula 2.00 07/28/17 19:00 98 Nasal Cannula 2.00 07/28/17 16:00 98.2 52 26 112/61 (78) 96 07/28/17 16:00 52 07/28/17 12:00 78 07/28/17 12:00 98.7 48 22 124/65 (84) 94 07/30/17 06:59 Intake Total 105 ml Balance 105 ml Constitutional Vital Signs Date Time Temp Pulse Resp B/P (MAP) Pulse Ox O2 Delivery O2 Flow Rate FiO2 07/29/17 08:00 53 07/29/17 08:00 98.6 53 21 105/56 (72) 100 07/29/17 07:00 98 Nasal Cannula 2.00 07/29/17 04:06 97 Nasal Cannula 2.00 07/29/17 04:00 98.2 51 16 95/56 (69) 100 07/29/17 04:00 51 07/29/17 00:00 53 07/29/17 00:00 98.6 53 18 99/55 (70) 100 07/28/17 22:00 52 07/28/17 20:00 55 07/28/17 20:00 98.4 55 18 105/60 (75) 99 07/28/17 19:54 97 Nasal Cannula 2.00 07/28/17 19:00 98 Nasal Cannula 2.00 07/28/17 16:00 98.2 52 26 112/61 (78) 96 07/28/17 16:00 52 07/28/17 12:00 78 07/28/17 12:00 98.7 48 22 124/65 (84) 94 07/30/17 06:59 Intake Total 105 ml Balance 105 ml (Ruby Renteria) Physical Exam CONSTITUTIONAL: Awake & alert in bed. no apparent distress. HEENT: Normocephalic, Left frontal surgical site healing well without evidence of infection. Nonicteric sclera. MUSCULOSKELETAL: moves all extremities spontaneously & purposefully. NEUROLOGICAL: Awake & alert. Speech clear, answers simple questions in Estonian. Follows some simple commands. CN: pupils equal (Ruby Renteria) Medications Current Medications Current Medications Medications (Trade) Dose Ordered Sig/Thaddeus Route PRN Reason Start Time Stop Time Status Last Admin Dose Admin Naloxone HCl (Narcan Inj) 0.4 mg UNSCH PRN IV PUSH SEE LABEL COMMENTS 07/14/17 22:15 Senna/Docusate Sodium (Maddy-Colace) 1 tab BID PO 07/15/17 09:00 07/29/17 09:08 Magnesium Hydroxide (Milk Of Magnesia Liq) 30 ml Q12H PRN PO Mild constipation 07/14/17 22:15 07/22/17 10:03 Sennosides (Senokot) 17.2 mg Q12H PRN PO Moderate constipation 07/14/17 22:15 Bisacodyl (Dulcolax Supp) 10 mg DAILY PRN RECTAL SEVERE CONSITIPATION/ IF NPO 07/14/17 22:15 Lactulose (Lactulose Liq) 30 ml DAILY PRN PO SEVERE CONSITIPATION/ IF PO 07/14/17 22:15 Albuterol Sulfate (Albuterol Neb) 2.5 mg Q4HR NEB PRN NEB sob/wheezing 07/14/17 22:30 07/14/17 23:41 Allopurinol (Zyloprim) 100 mg BID PO 07/15/17 09:00 07/29/17 09:08 Atorvastatin Calcium (Lipitor) 40 mg HS PO 07/15/17 21:00 07/28/17 20:44 Citalopram Hydrobromide (CeleXA) 20 mg DAILY PO 07/15/17 09:00 07/29/17 08:52 Levothyroxine Sodium (Synthroid) 150 mcg DAILY@0700 PO 07/15/17 07:00 07/29/17 06:47 Quetiapine Fumarate (SEROquel) 25 mg HS PO 07/15/17 21:00 07/28/17 20:44 Lorazepam (Ativan Inj) 2 mg Q10M PRN IV PUSH SEE LABEL COMMENTS 07/15/17 01:45 Albuterol/ Ipratropium (Duoneb Neb) 1 ampule Q4HR NEB PRN INH SHORTNESS OF BREATH 07/16/17 13:30 07/20/17 20:13 Chlorhexidine Gluconate (Peridex 0.12% Liq) 15 ml BID@08,20 MT 07/16/17 20:00 07/27/17 20:00 Famotidine (Pepcid) 20 mg BID PO 07/16/17 21:00 07/29/17 08:52 Miscellaneous Information 1 Q361D XX 07/16/17 13:30 Chlorhexidine Gluconate (Chlorhexidine 2% Cloth) Taper DAILY@04 TOP 07/17/17 04:00 07/13/18 03:59 07/29/17 04:00 Chlorhexidine Gluconate (Chlorhexidine 2% Cloth) 3 pack UNSCH PRN TOP HYGIENIC CARE 07/16/17 13:30 Fosphenytoin Sodium (Cerebyx Inj) 100 mgpe Q8HR IV 07/16/17 22:00 07/29/17 05:08 Heparin Sodium (Porcine) (Heparin Central Flush) See Protocol DAILY IV FLUSH 07/17/17 09:00 07/29/17 09:01 Heparin Sodium (Porcine) (Heparin Central Flush) See Protocol UNSCH PRN IV FLUSH SEE PROTOCOL TABLE 07/16/17 19:30 Sodium Chloride (NS Flush) UNSCH PRN IV FLUSH SEE PROTOCOL TABLE 07/16/17 19:30 Sodium Chloride (NS Flush) See Protocol UNSCH PRN IV FLUSH FLUSH AFTER USING IV ACCESS 07/16/17 19:30 07/27/17 21:56 Sodium Chloride (NS Flush) SEE PROTOCOL UNSCH PRN IV FLUSH SEE PROTOCOL TABLE 07/16/17 19:30 Docusate Sodium (Colace) 100 mg BID PO 07/17/17 21:00 07/29/17 08:52 Ondansetron HCl (Zofran Inj) 4 mg Q6H PRN IV PUSH NAUSEA OR VOMITING 07/17/17 10:45 07/24/17 18:06 Calcium Gluconate (Calcium Gluconate Inj) 1 gm UNSCH PRN IV SEE LABEL COMMENTS 07/17/17 10:45 Potassium Chloride 100 ml @ 50 mls/hr UNSCH PRN IV POTASSIUM LESS THAN 4 07/17/17 11:45 Magnesium Sulfate 4 gm/Sodium Chloride 108 ml @ 54 mls/hr UNSCH PRN IV MAGNESIUM LESS THAN 2 07/17/17 11:45 Acetaminophen/ Hydrocodone Bitart ([place] 10-325 Mg) 1 tab Q4H PRN PO PAIN SCALE 1 TO 5 07/17/17 11:45 07/25/17 12:18 Acetaminophen/ Hydrocodone Bitart ([place] 10-325 Mg) 2 tab Q4H PRN PO PAIN SCALE 6 TO 10 07/17/17 11:45 07/24/17 15:43 Morphine Sulfate (Morphine Inj) 2 mg Q2H PRN IV PUSH PAIN SCALE 1 TO 6 07/17/17 11:45 Morphine Sulfate (Morphine Inj) 4 mg Q2H PRN IV PUSH PAIN SCALE 7 TO 10 07/17/17 11:45 07/20/17 09:44 Acetaminophen (Tylenol) 650 mg Q4H PRN PO TEMPERATURE > 101.5 F 07/17/17 11:45 Phenytoin (Dilantin) 100 mg Q8HR PO 07/22/17 14:00 Future Hold 07/25/17 13:35 Ferrous Sulfate (Ferrous Sulfate) 325 mg DAILY PO 07/24/17 09:00 07/29/17 08:53 Dexamethasone Sodium Phosphate (Decadron Inj) 3 mg Q8HR IV PUSH 07/25/17 22:00 07/29/17 05:07 Terbutaline Sulfate (Brethine Inj) 1 mg UNSCH PRN SQ For Extravasation 07/25/17 16:30 Levetriacetam 500 mg/Sodium Chloride 105 ml @ 400 mls/hr Q6H IV 07/26/17 16:00 07/29/17 09:04 (Ruby Renteria) Medical Decision Making MDM Remarks 61-year-old female Left basal ganglia NARROW GAUGE BRAKEMAN lymphoma, status post stereotactic image guided biopsy, final pathology reports B-cell lymphoma Stable postoperative CT brain (Ruby Renteria) Plan Plan Remarks neurologically stable, and okay to transfer to floor from neurosurgical standpoint Follow-up with oncology DC surgical chip (Ruby Renteria) Attending Statement The exam, history, and the medical decision-making described in the above note were completed with the assistance of the mid-level provider. I reviewed and agree with the findings presented. I attest that I had a [id number] encounter with the patient on the same day, and personally performed and documented my assessment and findings in the medical record. (Miguel Sutton MD) Ruby Renteria July 29, 2017 10:06 Miguel Sutton MD July 31, 2017 16:00
--- NOTE | 2017-07-29 10:24 | RADRPT ---
EXAM DATE/TIME: 07/28/2017 13:46 [facility] COMPARISON: CT ABDOMEN & PELVIS W CONTRAST, July 27, 2017, 15:56. INDICATIONS : B cell lymphoma. SEDATION TIME: 30 minutes BIOPSY SITE: Left MEDICATION(S): 1.) 2.5 mg midazolam (Versed) IV 2.) 125 mcg fentanyl (Sublimaze) DEVICE(S): 1.) 11 gauge Bone marrow biopsy needle MEDICAL HISTORY : Cerebrovascular disease. Hypertension. B cell lymphoma SURGICAL HISTORY : Cholecystectomy ENCOUNTER: Initial ACUITY: 1 day PAIN SCORE: 0/10 LOCATION: Left A total of one core specimen(s) were obtained and sent to the laboratory for pathologic evaluation. PROCEDURE: 1. CT guided bone marrow biopsy. 2. Conscious sedation with continuous EKG and oximetry monitoring. 3. EKG and oximetry remained stable throughout the procedure. Prior to the procedure informed consent was obtained. Any appropriate prior imaging studies were rev iewed. Using automated exposure control and adjustment of the mA and/or kV according to patient size , radiation dose was kept as low as reasonably achievable to obtain optimal diagnostic quality images . DICOM format image data is available electronically for review and comparison. The site was prepped in a sterile fashion. Full sterile technique was used, including cap, mask, dalton rile gloves and gown and a large sterile sheet. Hand hygiene and 2% chlorhexidine and/or betadine/al cohol prep was utilized per protocol for cutaneous antisepsis. The skin and subcutaneous tissues wer e infiltrated with local anesthetic solution. With CT guidance the left posterior iliac bone was localized. Biopsy was performed using the prescrib ed needle as above. Following biopsy marrow aspiration was performed with repeat puncture. Adequate hemostasis was obtained with compression at the puncture site. Conscious sedation was performed with the prescribed dosages and duration as above in the presence of an independent trained radiology nurse to assist in the monitoring of the patient. EKG and oximetry remained stable throughout the procedure. The patient tolerated the procedure well and there were no complications. The patient was sent to Radiology Outpatient Unit in stable condition. CONCLUSION: 1. Uncomplicated CT guided bone marrow aspirate. 2. Uncomplicated CT guided bone marrow biopsy. Israel Garvin MD on July 29, 2017 at 10:21 Board Certified Radiologist. This report was verified electronically.
--- NOTE | 2017-07-29 15:03 | RADRPT ---
EXAM DATE/TIME: 07/27/2017 15:37 [facility] COMPARISON: CT BRAIN W/O CONTRAST, July 25, 2017, 14:37. INDICATIONS : Patient arrived to ED for increasing confusion. CT shows a newly discovered brain mass. MEDICAL HISTORY : 1. CVA 2. Hypothyroidism 3. HTN 4. ASthma 5. Bipolar 6. Non hodgkins lymphoma 7. GERD 8. Nephrolithasis SURGICAL HISTORY : 1. Cholecystectomy 2. uretersal stent also removed 3. Biopsy of pancreas and liver ENCOUNTER: Initial ACUITY: 2 weeks PAIN SCORE: 0/10 LUMBAR PUNCTURE TIME: 1536 hours FLUORO TIME: 0.9 minutes IMAGE SERIES: 2 ACCESS LEVEL: L3-4 OPENING PRESSURE: 18.5cm of water Not requested. FLUID: 21 cc of clear CSF was collected and sent to the laboratory for analysis. PROCEDURE : 1. Fluoroscopic guided lumbar puncture. 2. Recording of opening pressure. The risks, benefits and alternatives to the procedure were explained and verbal and written consent w as obtained. The site was prepped in sterile fashion. Full sterile technique was used, including ca p, mask, sterile gloves and gown and a large sterile sheet. Hand hygiene and 2% chlorhexidine and/or betadine/alcohol prep was utilized per protocol for cutaneous antisepsis. The skin and subcutaneous tissues were infiltrated with local anesthetic solution. With fluoroscopic guidance the lumbar thecal sac was punctured at the above level described above and the opening pressure was recorded. The above described fluid was removed without difficulty. The patient tolerated the procedure well and there were no complications. CONCLUSION: Uncomplicated fluoroscopically guided lumbar puncture with pressures as above. Kwasi Wilkins MD on July 29, 2017 at 14:55 Board Certified Radiologist. This report was verified electronically.
--- NOTE | 2017-07-29 15:43 | PD.ONC.PN ---
Subjective Subjective Remarks Afebrile Pt resting in bed in no obvious distress Reports she still has an occasional mild headache Patient and family are wondering if BMB results are back Objective Data Date Time Temp Pulse Resp B/P (MAP) Pulse Ox O2 Delivery O2 Flow Rate FiO2 07/29/17 12:00 98.5 53 15 107/60 (76) 95 07/29/17 12:00 53 07/29/17 11:50 100 21 07/29/17 08:00 53 07/29/17 08:00 98.6 53 21 105/56 (72) 100 07/29/17 07:00 98 Nasal Cannula 2.00 07/29/17 04:06 97 Nasal Cannula 2.00 07/29/17 04:00 98.2 51 16 95/56 (69) 100 07/29/17 04:00 51 07/29/17 00:00 53 07/29/17 00:00 98.6 53 18 99/55 (70) 100 07/28/17 22:00 52 07/28/17 20:00 55 07/28/17 20:00 98.4 55 18 105/60 (75) 99 07/28/17 19:54 97 Nasal Cannula 2.00 07/28/17 19:00 98 Nasal Cannula 2.00 07/28/17 16:00 98.2 52 26 112/61 (78) 96 07/28/17 16:00 52 07/29/17 07/29/17 07/29/17 07:00 15:00 23:00 Intake Total 360 ml 105 ml Output Total 200 ml Balance 160 ml 105 ml Result Diagram: 07/29/17 0515 07/29/17 0515 Laboratory Results Laboratory Tests Test 07/29/17 05:15 White Blood Count 9.1 TH/MM3 Red Blood Count 3.39 MIL/MM3 Hemoglobin 10.8 GM/DL Hematocrit 32.3 % Mean Corpuscular Volume 95.3 FL Mean Corpuscular Hemoglobin 31.9 PG Mean Corpuscular Hemoglobin Concent 33.4 % Red Cell Distribution Width 13.9 % Platelet Count 268 TH/MM3 Mean Platelet Volume 7.5 FL Blood Urea Nitrogen 16 MG/DL Creatinine 0.65 MG/DL Random Glucose 89 MG/DL Calcium Level 8.6 MG/DL Uric Acid 2.8 MG/DL Lactate Dehydrogenase 116 U/L Sodium Level 144 MEQ/L Potassium Level 3.9 MEQ/L Chloride Level 108 MEQ/L Carbon Dioxide Level 29.4 MEQ/L Anion Gap 7 MEQ/L Estimat Glomerular Filtration Rate 92 ML/MIN Culture Results Microbiology Date/Time Source Procedure Growth Status 07/27/17 15:38 Cerebral Spinal Fluid Lumbar Puncture Gram Stain - Final Resulted 07/27/17 15:38 Cerebral Spinal Fluid Lumbar Puncture CSF Culture - Preliminary NO GROWTH IN 48 HOURS. Resulted Administered Medications Medications (Trade) Dose Ordered Sig/Thaddeus Route PRN Reason Start Time Stop Time Status Last Admin Dose Admin Senna/Docusate Sodium (Maddy-Colace) 1 tab BID PO 07/15/17 09:00 07/29/17 09:08 Magnesium Hydroxide (Milk Of Magnesia Liq) 30 ml Q12H PRN PO Mild constipation 07/14/17 22:15 07/22/17 10:03 Albuterol Sulfate (Albuterol Neb) 2.5 mg Q4HR NEB PRN NEB sob/wheezing 07/14/17 22:30 07/14/17 23:41 Allopurinol (Zyloprim) 100 mg BID PO 07/15/17 09:00 07/29/17 09:08 Atorvastatin Calcium (Lipitor) 40 mg HS PO 07/15/17 21:00 07/28/17 20:44 Citalopram Hydrobromide (CeleXA) 20 mg DAILY PO 07/15/17 09:00 07/29/17 08:52 Levothyroxine Sodium (Synthroid) 150 mcg DAILY@0700 PO 07/15/17 07:00 07/29/17 06:47 Quetiapine Fumarate (SEROquel) 25 mg HS PO 07/15/17 21:00 07/28/17 20:44 Albuterol/ Ipratropium (Duoneb Neb) 1 ampule Q4HR NEB PRN INH SHORTNESS OF BREATH 07/16/17 13:30 07/20/17 20:13 Chlorhexidine Gluconate (Peridex 0.12% Liq) 15 ml BID@08,20 MT 07/16/17 20:00 07/27/17 20:00 Famotidine (Pepcid) 20 mg BID PO 07/16/17 21:00 07/29/17 08:52 Chlorhexidine Gluconate (Chlorhexidine 2% Cloth) Taper DAILY@04 TOP 07/17/17 04:00 07/13/18 03:59 07/29/17 04:00 Fosphenytoin Sodium (Cerebyx Inj) 100 mgpe Q8HR IV 07/16/17 22:00 07/29/17 13:00 Heparin Sodium (Porcine) (Heparin Central Flush) See Protocol DAILY IV FLUSH 07/17/17 09:00 07/29/17 09:01 Sodium Chloride (NS Flush) See Protocol UNSCH PRN IV FLUSH FLUSH AFTER USING IV ACCESS 07/16/17 19:30 07/27/17 21:56 Docusate Sodium (Colace) 100 mg BID PO 07/17/17 21:00 07/29/17 08:52 Ondansetron HCl (Zofran Inj) 4 mg Q6H PRN IV PUSH NAUSEA OR VOMITING 07/17/17 10:45 07/24/17 18:06 Acetaminophen/ Hydrocodone Bitart (Addy 10-325 Mg) 1 tab Q4H PRN PO PAIN SCALE 1 TO 5 07/17/17 11:45 07/25/17 12:18 Acetaminophen/ Hydrocodone Bitart (Addy 10-325 Mg) 2 tab Q4H PRN PO PAIN SCALE 6 TO 10 07/17/17 11:45 07/24/17 15:43 Morphine Sulfate (Morphine Inj) 4 mg Q2H PRN IV PUSH PAIN SCALE 7 TO 10 07/17/17 11:45 07/20/17 09:44 Phenytoin (Dilantin) 100 mg Q8HR PO 07/22/17 14:00 Future Hold 07/25/17 13:35 Ferrous Sulfate (Ferrous Sulfate) 325 mg DAILY PO 07/24/17 09:00 07/29/17 08:53 Dexamethasone Sodium Phosphate (Decadron Inj) 3 mg Q8HR IV PUSH 07/25/17 22:00 07/29/17 13:00 Levetriacetam 500 mg/Sodium Chloride 105 ml @ 400 mls/hr Q6H IV 07/26/17 16:00 07/29/17 09:04 Objective Remarks GENERAL: Older female, resting in bed watching TV in no distress SKIN: Warm and dry. HEAD: Normocephalic. EYES: No injection or drainage. NECK: Supple, trachea midline. CARDIOVASCULAR: Regular rate and rhythm RESPIRATORY: Clear posteriorly. Breathing unlabored at rest. GASTROINTESTINAL: Abdomen soft, non-tender, nondistended. EXTREMITIES: No cyanosis NEUROLOGICAL: Awake and alert. Right sided facial droop. Right sided weakness. 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 received 6 cycles of R-CHOP under the direction of Dr. Alves at [facility] in [place] (was in remission) --obtain CT C.A.P, bone marrow biopsy --LP flow cytometry and cytology --consult ophthalmology for eye exam. --HIV test. --Treatment would depend on location and full extent of disease. If tumor is isolated to the CSF and no other sites of disease, would treat with high-dose methotrexate as well as rituximab. If tumor is found in other sites of the body , would have more aggressive systemic therapy if the patient is able to tolerate. 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 HPI (brought forward from initial consult for continuity of care): admitted to the hospital on 07/14/2017 for further evaluation of confusion, slurred speech, and right-sided weakness. She was initially seen in the emergency room at [facility], and she was transferred to [facility] for neurosurgical evaluation. CT brain showed brain mass with midline shift of 6.8 mm. MRI brain 07/15/2017 with left basal ganglia mass with moderate associated vasogenic edema , mild to moderate hemispheric mass effect. She was seen by the neurosurgery service and on 07/17/2017 underwent a stereotactic biopsy of the left basal ganglia brain mass. Pathology report has returned as diffuse large B cell lymphoma with cells that are CD20 positive, C79A positive, BCL6 positive, BCL2 positive, MUM1 positive. Cells are negative for CD10. Ki-67 is 70%. h/o Hypothyroidism. 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 Hypertension. Osteoporosis. Asthma. Obstructive sleep apnea. Bipolar disorder. Non-Hodgkin's lymphoma. Acid reflux. Hyperlipidemia. Nephrolithiasis. Thyroid nodule. Plan 1. Await results of BMB 2. Supportive care. 3. Per plans examiner no ocular involvement seen on eye exam. Attending Statement The exam, history, and the medical decision-making described in the above note were completed with the assistance of the mid-level provider. I reviewed and agree with the findings presented. I attest that I had a [id number] encounter with the patient on the same day, and personally performed and documented my assessment and findings in the medical record. Primary [employer]PLICATION [employer]ATION [employer]IST lymphoma awaiting results of systemic work up. ordered thyroid ultrasound. Sho Reaves July 29, 2017 15:43 Evy Melendez MD July 30, 2017 06:07
--- NOTE | 2017-07-29 16:47 | ECHRPT ---
Indication: to eval lv fxn CONCLUSIONS Normal left ventricular size. Wall thickness is normal. The left ventricular systolic function is normal with an estimated ejection fraction in the range of 55-60%. Mitral annular calcification is present. BP: / HR: Rhythm: MEASUREMENTS (Male / Female) Normal Values Technical Quality: 2D ECHO LV Diastolic Diameter PLAX 4.9 cm 4.2 - 5.9 / 3.9 - 5.3 cm LV Systolic Diameter PLAX 3.6 cm IVS Diastolic Thickness 1.0 cm 0.6 - 1.0 / 0.6 - 0.9 cm LVPW Diastolic Thickness 0.7 cm 0.6 - 1.0 / 0.6 - 0.9 cm LV Relative Wall Thickness 0.4 RV Internal Dim ED PLAX 1.9 cm M-MODE AV Cusp Separation MM 1.9 cm DOPPLER Mitral E Point Velocity 61.1 cm/s Mitral A Point Velocity 76.5 cm/s Mitral E to A Ratio 0.8 TR Peak Velocity 265.0 cm/s TR Peak Gradient 28.1 mmHg FINDINGS LEFT VENTRICLE Normal left ventricular size. Wall thickness is normal. The left ventricular systolic function is normal with an estimated ejection fraction in the range of 55-60%. RIGHT VENTRICLE Normal right ventricular size and systolic function. LEFT ATRIUM The left atrial size is normal. RIGHT ATRIUM The right atrial size is normal. ATRIAL SEPTUM Normal atrial septal thickness without atrial level shunting by limited color doppler interrogation. AORTA The aortic root and proximal ascending aorta are normal in size on limited imaging. MITRAL VALVE Mitral annular calcification is present. AORTIC VALVE Trileaflet aortic valve. No aortic valve stenosis or regurgitation. TRICUSPID VALVE Structurally normal tricuspid valve. No tricuspid valve stenosis or regurgitation. PULMONARY VALVE The pulmonary valve is not well visualized. VESSELS The inferior vena cava is normal in size. PERICARDIUM No pericardial effusion. Dion Ewing MD, FACC, [facility] [place] (Electronically Signed) Final Date:29 Jul 2017 16:47
--- NOTE | 2017-07-29 16:55 | HHI.PR ---
Subjective Remarks Doing well. Starting to ambulate with PT. Status post brain biopsy on 2017. Cerebral edema seen on imaging from 07/25/2017. Objective Vital Signs Date Time Temp Pulse Resp B/P (MAP) Pulse Ox O2 Delivery O2 Flow Rate FiO2 07/29/17 16:00 57 07/29/17 12:00 98.5 53 15 107/60 (76) 95 07/29/17 12:00 53 07/29/17 11:50 100 21 07/29/17 08:00 53 07/29/17 08:00 98.6 53 21 105/56 (72) 100 07/29/17 07:00 98 Nasal Cannula 2.00 07/29/17 04:06 97 Nasal Cannula 2.00 07/29/17 04:00 98.2 51 16 95/56 (69) 100 07/29/17 04:00 51 07/29/17 00:00 53 07/29/17 00:00 98.6 53 18 99/55 (70) 100 07/28/17 22:00 52 07/28/17 20:00 55 07/28/17 20:00 98.4 55 18 105/60 (75) 99 07/28/17 19:54 97 Nasal Cannula 2.00 07/28/17 19:00 98 Nasal Cannula 2.00 I/O 07/28/17 07/28/17 07/28/17 07/29/17 07/29/17 07/29/17 07:00 15:00 23:00 07:00 15:00 23:00 Intake Total 585 ml 360 ml 105 ml Output Total 850 ml 100 ml 200 ml Balance -265 ml -100 ml 160 ml 105 ml Intake Oral 480 ml 360 ml IV Total 105 ml 105 ml Output Urine Total 850 ml 100 ml 200 ml # Voids 2 3 # Bowel Movements 1 0 Result Diagram: 07/29/17 0515 07/29/17 0515 Objective Remarks GENERAL: NAD, A&Ox3 HEAD: Normocephalic. NECK: Supple, trachea midline. No lymphadenopathy. EYES: No scleral icterus. No injection or drainage. CARDIOVASCULAR: Regular rate and rhythm without murmurs, gallops, or rubs. RESPIRATORY: Breath sounds equal bilaterally. No accessory muscle use. GASTROINTESTINAL: Abdomen soft, non-tender, nondistended. MUSCULOSKELETAL: No cyanosis, or edema. SKIN: Warm and dry. NEURO: No focal neurological deficitis. A/P Problem List: (1) B-cell lymphoma ICD Code: C85.10 - Unspecified B-cell lymphoma, unspecified site (2) Brain mass ICD Code: G93.9 - Disorder of brain, unspecified (3) Hypertension ICD Code: I10 - Essential (primary) hypertension (4) Seizure ICD Code: R56.9 - Unspecified convulsions (5) Hyperlipidemia ICD Code: E78.5 - Hyperlipidemia, unspecified (6) Dementia without behavioral disturbance ICD Code: F03.90 - Unspecified dementia without behavioral disturbance Assessment and Plan 61-year-old female admitted secondary to encephalopathy found to be related to B -cell lymphoma metastasis into the brain 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 with vasogenic edema and midline shift status post biopsy Continue steroids Continue to follow clinically Neurology following Hypothyroidism Continue supplements Follows an outpatient Hypertension Continue baseline treatment Follow blood pressures Adjust treatments as needed Asthma No exacerbation Breathing treatments as needed h/o CVA with possible seizure activity at the time of the CVA - no seizures since and does not take AEDs Monitor for any seizure activity Keppra Cerebyx 100mg Q8 Hyperlipidemia Continue present treatment Follow as an outpatient Bipolar disorder No change to baseline treatments Obstructive sleep apnea CPAP Generalize physical deficit May be contributory by brain edema Continue physical therapy DVT prophylaxis Bleed risk is present SCDs Kwasi Mcfadden MD July 29, 2017 16:55
[2017-07-29] MEDS: QUEtiapine FUMARATE 25 MG TAB PO SCH (21:16)
[2017-07-29] MEDS: ATORVASTATIN 40 MG TAB PO SCH (21:16)
[2017-07-30] VITALS (9 sets, daily range): BP systolic 89–108; BP diastolic 51–62; PULSE 44–60; RESP 16–24; TEMP 97.9–99.5; O2SAT 93–100
[2017-07-30] MEDS: CHLORHEXIDINE GLUCONATE 2 % 1 PACK (2 CLOTHS) TOP SCH (02:08)
[2017-07-30] MEDS: levETIRAcetam INJ 500 MG in SODIUM CHLORIDE 0.9% INJ 100 ML IV SCH ×3 (03:56→16:47)
[2017-07-30] MEDS: ACETAMINOPHEN/HYDROcodone 325 MG/10 MG TAB PO PRN (04:36)
[2017-07-30] MEDS: DEXAMETHASONE SOD PHOS 4 MG/ML VIAL IV PUSH SCH ×2 (06:26→14:09)
[2017-07-30] MEDS: LEVOTHYROXINE SODIUM 150 MCG TAB PO SCH (06:26)
[2017-07-30] MEDS: FOSPHENYTOIN SODIUM 100 MG PE/2 ML VIAL IV SCH ×3 (06:26→22:00)
[2017-07-30 07:14] LABS: AUTOMATED NEUTROPHIL # 4.6 TH/MM3 (1.8-7.7); BASOPHIL % 0.4 % (0.0-2.0); EOSINOPHIL # 0.1 TH/MM3 (0-0.4); EOSINOPHIL % 1.9 % (0.0-4.0); HEMATOCRIT 31.8 % (35.0-46.0); LYMPH % 29.6 % (9.0-44.0); LYMPHOCYTE # 2.4 TH/MM3 (1.0-4.8); MEAN CELL VOLUME 94.4 FL (80.0-100.0); MEAN CORPUSCULAR HEMOGLOBIN 32.7 PG (27.0-34.0); MEAN CORPUSCULAR HGB CONC 34.6 % (32.0-36.0); MEAN PLATELET VOLUME 7.6 FL (7.0-11.0); MONO % 10.4 % (0.0-8.0); MONOCYTE # 0.8 TH/MM3 (0-0.9); NEUT % 57.7 % (16.0-70.0); PLATELET COUNT 241 TH/MM3 (150-450); RED BLOOD COUNT 3.37 MIL/MM3 (4.00-5.30); WHITE BLOOD COUNT 7.9 TH/MM3 (4.0-11.0)
[2017-07-30] MEDS: CHLORHEXIDINE 0.12% (ORAL KIT) 15 ML CUP MT SCH ×2 (07:25→19:38)
[2017-07-30 07:39] LABS: ALT (GPT) 38 U/L (10-53); AST (GOT) 25 U/L (15-37); BICARBONATE 28.6 MEQ/L (21.0-32.0); BLOOD UREA NITROGEN 13 MG/DL (7-18); CALCIUM 8.5 MG/DL (8.5-10.1); CHLORIDE 109 MEQ/L (98-107); GLOMERULAR FILTRATION RATE 101 ML/MIN (>89); GLUCOSE,RANDOM 86 MG/DL (74-106); SODIUM (NA) 144 MEQ/L (136-145)
[2017-07-30 07:42] LABS: ALKALINE PHOSPHATASE 120 U/L (45-117); TOTAL BILIRUBIN ADULT 0.2 MG/DL (0.2-1.0); TOTAL PROTEIN 6.5 GM/DL (6.4-8.2)
[2017-07-30] MEDS: FAMOTIDINE 20 MG TAB PO SCH ×2 (08:17→19:39)
[2017-07-30] MEDS: CITALOPRAM HYDROBROMIDE 20 MG TAB PO SCH (08:17)
[2017-07-30] MEDS: FERROUS SULFATE 325 MG (65 MG ELEMENTAL IRON) TAB PO SCH (08:17)
[2017-07-30] MEDS: DOCUSATE SODIUM 100 MG CAP PO SCH ×2 (08:17→19:38)
[2017-07-30] MEDS: ALLOPURINOL 100 MG TAB PO SCH ×2 (08:17→19:38)
[2017-07-30] MEDS: DOCUSATE SODIUM 50 MG/SENNA 8.6 MG TAB PO SCH ×2 (08:17→19:38)
--- NOTE | 2017-07-30 09:46 | RADRPT ---
EXAM DATE/TIME: 07/30/2017 08:47 [facility] COMPARISON: No previous studies available for comparison. INDICATIONS : Thyroid nodule. MEDICAL HISTORY : Hypothyroidism. Stroke. Hypercholesterolemia. Hypertension. Asthma. Sleep apnea. Dementia. SURGICAL HISTORY : Cholecystectomy. Kidney stent, removed. Biopsy os spine, pancreas, and liver. ENCOUNTER: Initial ACUITY: >1 year PAIN SCORE: 0/10 LOCATION: Bilateral neck MEASUREMENTS: RIGHT LOBE: 3.9 x 1.6 x 1.5 cm LEFT LOBE: 4.8 x 4.1 x 2.6 cm FINDINGS: RIGHT LOBE: Diffusely heterogeneous containing 3 dominant nodules. These include 2 solid subcentimeter nodules an d a dominant solid nodule measuring 1.7 x 1.3 x 1.5 cm in the inferior pole. LEFT LOBE: Diffusely heterogeneous containing 3 dominant nodules. The largest is a mixed but primarily solid nod ule in the lower pole measuring 2.9 x 2.5 x 1.7 cm in the midpole. There is also a heterogeneous pred ominantly solid nodule measuring 2.7 x 2.4 x 2.2 cm in the inferior pole. Third nodule is uniformly s olid measuring 1.1 x 0.9 x 0.7 cm. ISTHMUS: Normal in size without focal abnormality. CONCLUSION: 1. Diffusely heterogeneous multinodular thyroid gland. 2. 1.7 cm solid nodule in the inferior right lobe and 2 mixed nodules in the mid and inferior left po le meet criteria for fine needle aspiration. Frankie Dao MD on July 30, 2017 at 9:37 Board Certified Radiologist. This report was verified electronically.
--- NOTE | 2017-07-30 12:09 | HHI.PR ---
Subjective Remarks Patient working well with PT. Her last evaluation recommends inpatient rehab. Family has researched their local rehab facilities in [place] and are not pleased. We will likely want this patient to return home with them with home health PT. Objective Vital Signs Date Time Temp Pulse Resp B/P (MAP) Pulse Ox O2 Delivery O2 Flow Rate FiO2 07/30/17 08:39 99 Nasal Cannula 2.00 07/30/17 08:00 97.9 44 22 102/62 (75) 100 07/30/17 08:00 44 07/30/17 07:00 99 Nasal Cannula 2.00 07/30/17 04:00 48 07/30/17 04:00 99.5 48 20 108/57 (74) 97 07/30/17 00:00 48 07/30/17 00:00 98.6 48 24 89/54 (66) 95 07/29/17 20:39 97 Nasal Cannula 2.00 07/29/17 20:00 45 07/29/17 20:00 98.3 56 23 93/51 (65) 89 07/29/17 19:00 95 Nasal Cannula 2.00 07/29/17 16:00 98.1 52 20 87/55 (66) 94 07/29/17 16:00 57 I/O 07/29/17 07/29/17 07/29/17 07/30/17 07/30/17 07/30/17 07:00 15:00 23:00 07:00 15:00 23:00 Intake Total 360 ml 105 ml 585 ml 500 ml Output Total 200 ml 100 ml Balance 160 ml 105 ml 485 ml 500 ml Intake Oral 360 ml 480 ml 500 ml IV Total 105 ml 105 ml Output Urine Total 200 ml 100 ml # Voids 3 4 3 # Bowel Movements 0 1 0 Result Diagram: 07/30/17 0630 07/30/17 0630 Objective Remarks GENERAL: NAD, A&Ox3 HEAD: Normocephalic. NECK: Supple, trachea midline. No lymphadenopathy. EYES: No scleral icterus. No injection or drainage. CARDIOVASCULAR: Regular rate and rhythm without murmurs, gallops, or rubs. RESPIRATORY: Breath sounds equal bilaterally. No accessory muscle use. GASTROINTESTINAL: Abdomen soft, non-tender, nondistended. MUSCULOSKELETAL: No cyanosis, or edema. SKIN: Warm and dry. NEURO: No focal neurological deficitis. A/P Problem List: (1) B-cell lymphoma ICD Code: C85.10 - Unspecified B-cell lymphoma, unspecified site (2) Brain mass ICD Code: G93.9 - Disorder of brain, unspecified (3) Hypertension ICD Code: I10 - Essential (primary) hypertension (4) Seizure ICD Code: R56.9 - Unspecified convulsions (5) Hyperlipidemia ICD Code: E78.5 - Hyperlipidemia, unspecified (6) Dementia without behavioral disturbance ICD Code: F03.90 - Unspecified dementia without behavioral disturbance Assessment and Plan 61-year-old female admitted secondary to encephalopathy found to be related to B -cell lymphoma metastasis into the brain Continue working with PT. Outpatient PT plan. Likely discharge scenarios discharged home with home health PT. 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 with vasogenic edema and midline shift status post biopsy Continue steroids Continue to follow clinically Neurology following Hypothyroidism Continue supplements Follows an outpatient Hypertension Continue baseline treatment Follow blood pressures Adjust treatments as needed Asthma No exacerbation Breathing treatments as needed h/o CVA with possible seizure activity at the time of the CVA - no seizures since and does not take AEDs Monitor for any seizure activity Keppra Cerebyx 100mg Q8 Hyperlipidemia Continue present treatment Follow as an outpatient Bipolar disorder No change to baseline treatments Obstructive sleep apnea CPAP Generalize physical deficit May be contributory by brain edema Continue physical therapy DVT prophylaxis Bleed risk is present SCDs Kwasi Mcfadden MD July 30, 2017 12:08
--- NOTE | 2017-07-30 13:07 | PD.ONC.PN ---
Subjective Subjective Remarks Resting comfortably in bed. Daughter at bedside. Daughter reports that her mentation waxes and wanes. Objective Data Date Time Temp Pulse Resp B/P (MAP) Pulse Ox O2 Delivery O2 Flow Rate FiO2 07/30/17 08:39 99 Nasal Cannula 2.00 07/30/17 08:00 97.9 44 22 102/62 (75) 100 07/30/17 08:00 44 07/30/17 07:00 99 Nasal Cannula 2.00 07/30/17 04:00 48 07/30/17 04:00 99.5 48 20 108/57 (74) 97 07/30/17 00:00 48 07/30/17 00:00 98.6 48 24 89/54 (66) 95 07/29/17 20:39 97 Nasal Cannula 2.00 07/29/17 20:00 45 07/29/17 20:00 98.3 56 23 93/51 (65) 89 07/29/17 19:00 95 Nasal Cannula 2.00 07/29/17 16:00 98.1 52 20 87/55 (66) 94 07/29/17 16:00 57 07/30/17 07/30/17 07/30/17 07:00 15:00 23:00 Intake Total 500 ml Balance 500 ml Result Diagram: 07/30/1730 07/30/17 0630 Laboratory Results Laboratory Tests Test 07/30/17 06:30 White Blood Count 7.9 TH/MM3 Red Blood Count 3.37 MIL/MM3 Hemoglobin 11.0 GM/DL Hematocrit 31.8 % Mean Corpuscular Volume 94.4 FL Mean Corpuscular Hemoglobin 32.7 PG Mean Corpuscular Hemoglobin Concent 34.6 % Red Cell Distribution Width 14.0 % Platelet Count 241 TH/MM3 Mean Platelet Volume 7.6 FL Neutrophils (%) (Auto) 57.7 % Lymphocytes (%) (Auto) 29.6 % Monocytes (%) (Auto) 10.4 % Eosinophils (%) (Auto) 1.9 % Basophils (%) (Auto) 0.4 % Neutrophils # (Auto) 4.6 TH/MM3 Lymphocytes # (Auto) 2.4 TH/MM3 Monocytes # (Auto) 0.8 TH/MM3 Eosinophils # (Auto) 0.1 TH/MM3 Basophils # (Auto) 0.0 TH/MM3 CBC Comment DIFF FINAL Differential Comment Blood Urea Nitrogen 13 MG/DL Creatinine 0.60 MG/DL Random Glucose 86 MG/DL Total Protein 6.5 GM/DL Albumin 3.0 GM/DL Calcium Level 8.5 MG/DL Uric Acid 2.5 MG/DL Alkaline Phosphatase 120 U/L Aspartate Amino Transf (AST/SGOT) 25 U/L Alanine Aminotransferase (ALT/SGPT) 38 U/L Lactate Dehydrogenase 128 U/L Total Bilirubin 0.2 MG/DL Sodium Level 144 MEQ/L Potassium Level 3.7 MEQ/L Chloride Level 109 MEQ/L Carbon Dioxide Level 28.6 MEQ/L Anion Gap 6 MEQ/L Estimat Glomerular Filtration Rate 101 ML/MIN Culture Results Microbiology Date/Time Source Procedure Growth Status 07/27/17 15:38 Cerebral Spinal Fluid Lumbar Puncture Gram Stain - Final Complete 07/27/17 15:38 Cerebral Spinal Fluid Lumbar Puncture CSF Culture - Final NO GROWTH IN 72 HOURS Complete Imaging Studies Last 24 hours Impressions Thyroid Ultrasound 07/30/17 0000 Signed Impressions: Service Date/Time: July 08:47 - CONCLUSION: 1. Diffusely heterogeneous multinodular thyroid gland. 2. 1.7 cm solid nodule in the inferior right lobe and 2 mixed nodules in the mid and inferior left pole meet criteria for fine needle aspiration. Frankie Dao MD Administered Medications Medications (Trade) Dose Ordered Sig/Thaddeus Route PRN Reason Start Time Stop Time Status Last Admin Dose Admin Senna/Docusate Sodium (Maddy-Colace) 1 tab BID PO 07/15/17 09:00 07/30/17 08:17 Magnesium Hydroxide (Milk Of Julio Liq) 30 ml Q12H PRN PO Mild constipation 07/14/17 22:15 07/22/17 10:03 Albuterol Sulfate (Albuterol Neb) 2.5 mg Q4HR NEB PRN NEB sob/wheezing 07/14/17 22:30 07/14/17 23:41 Allopurinol (Zyloprim) 100 mg BID PO 07/15/17 09:00 07/30/17 08:17 Atorvastatin Calcium (Lipitor) 40 mg HS PO 07/15/17 21:00 07/29/17 21:16 Citalopram Hydrobromide (CeleXA) 20 mg DAILY PO 07/15/17 09:00 07/30/17 08:17 Levothyroxine Sodium (Synthroid) 150 mcg DAILY@0700 PO 07/15/17 07:00 07/30/17 06:26 Quetiapine Fumarate (SEROquel) 25 mg HS PO 07/15/17 21:00 07/29/17 21:16 Albuterol/ Ipratropium (Duoneb Neb) 1 ampule Q4HR NEB PRN INH SHORTNESS OF BREATH 07/16/17 13:30 07/20/17 20:13 Chlorhexidine Gluconate (Peridex 0.12% Liq) 15 ml BID@08,20 MT 07/16/17 20:00 07/27/17 20:00 Famotidine (Pepcid) 20 mg BID PO 07/16/17 21:00 07/30/17 08:17 Chlorhexidine Gluconate (Chlorhexidine 2% Cloth) Taper DAILY@04 TOP 07/17/17 04:00 07/13/18 03:59 07/29/17 04:00 Fosphenytoin Sodium (Cerebyx Inj) 100 mgpe Q8HR IV 07/16/17 22:00 07/30/17 06:26 Heparin Sodium (Porcine) (Heparin Central Flush) See Protocol DAILY IV FLUSH 07/17/17 09:00 07/29/17 09:01 Sodium Chloride (NS Flush) See Protocol UNSCH PRN IV FLUSH FLUSH AFTER USING IV ACCESS 07/16/17 19:30 07/27/17 21:56 Docusate Sodium (Colace) 100 mg BID PO 07/17/17 21:00 07/29/17 21:16 Ondansetron HCl (Zofran Inj) 4 mg Q6H PRN IV PUSH NAUSEA OR VOMITING 07/17/17 10:45 07/24/17 18:06 Acetaminophen/ Hydrocodone Bitart ([place] 10-325 Mg) 1 tab Q4H PRN PO PAIN SCALE 1 TO 5 07/17/17 11:45 07/30/17 04:36 Acetaminophen/ Hydrocodone Bitart ([place] 10-325 Mg) 2 tab Q4H PRN PO PAIN SCALE 6 TO 10 07/17/17 11:45 07/24/17 15:43 Morphine Sulfate (Morphine Inj) 4 mg Q2H PRN IV PUSH PAIN SCALE 7 TO 10 07/17/17 11:45 4/23/18 09:44 Phenytoin (Dilantin) 100 mg Q8HR PO 07/22/17 14:00 Future Hold 07/25/17 13:35 Ferrous Sulfate (Ferrous Sulfate) 325 mg DAILY PO 07/24/17 09:00 07/30/17 08:17 Dexamethasone Sodium Phosphate (Decadron Inj) 3 mg Q8HR IV PUSH 07/25/17 22:00 07/30/17 06:26 Levetriacetam 500 mg/Sodium Chloride 105 ml @ 400 mls/hr Q6H IV 07/26/17 16:00 07/30/17 09:24 Objective Remarks GENERAL: Well-nourished, well-developed patient. SKIN: Warm and dry. HEAD: Normocephalic. EYES: No scleral icterus. No injection or drainage. RESPIRATORY: No accessory muscle use. GASTROINTESTINAL: Abdomen soft, non-tender, nondistended. EXTREMITIES: No cyanosis, or edema. MUSCULOSKELETAL: Adequate muscle tone. NEUROLOGICAL: No obvious focal deficit. Awake, alert, and oriented x3. 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 received 6 cycles of R-CHOP under the direction of Dr. Alves at [facility] in [place] (was in remission) --obtain CT C.A.P, bone marrow biopsy --LP flow cytometry and cytology --consult ophthalmology for eye exam. --HIV test. --Treatment would depend on location and full extent of disease. If tumor is isolated to the CSF and no other sites of disease, would treat with high-dose methotrexate as well as rituximab. If tumor is found in other sites of the body , would have more aggressive systemic therapy if the patient is able to tolerate. 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 HPI (brought forward from initial consult for continuity of care): admitted to the hospital on 07/14/2017 for further evaluation of confusion, slurred speech, and right-sided weakness. She was initially seen in the emergency room at [facility], and she was transferred to [facility] for neurosurgical evaluation. CT brain showed brain mass with midline shift of 6.8 mm. MRI brain 07/15/2017 with left basal ganglia mass with moderate associated vasogenic edema , mild to moderate hemispheric mass effect. She was seen by the neurosurgery service and on 07/17/2017 underwent a stereotactic biopsy of the left basal ganglia brain mass. Pathology report has returned as diffuse large B cell lymphoma with cells that are CD20 positive, C79A positive, BCL6 positive, BCL2 positive, MUM1 positive. Cells are negative for CD10. Ki-67 is 70%. h/o Hypothyroidism. 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 Hypertension. Osteoporosis. Asthma. Obstructive sleep apnea. Bipolar disorder. Non-Hodgkin's lymphoma. Acid reflux. Hyperlipidemia. Nephrolithiasis. Thyroid nodule. Plan 1. Primary SETTLEMENT TECHNICIAN lymphoma: awaiting results of bone marrow biopsy to ensure that patient does not have systemic disease. 2. History of diffuse large b cell lymphoma: s/p treatment with six cycles of RCHOP. Evy Melendez MD July 30, 2017 13:07
[2017-07-30] MEDS: ATORVASTATIN 40 MG TAB PO SCH (19:39)
[2017-07-30] MEDS: QUEtiapine FUMARATE 25 MG TAB PO SCH (19:39)
[2017-07-31] VITALS (10 sets, daily range): BP systolic 108–131; BP diastolic 56–78; PULSE 49–110; RESP 17–20; TEMP 98–98.7; O2SAT 92–96
[2017-07-31] MEDS: DEXAMETHASONE SOD PHOS 4 MG/ML VIAL IV PUSH SCH ×4 (00:12→21:48)
[2017-07-31] MEDS: levETIRAcetam INJ 500 MG in SODIUM CHLORIDE 0.9% INJ 100 ML IV SCH ×5 (00:12→21:46)
[2017-07-31] MEDS: CHLORHEXIDINE GLUCONATE 2 % 1 PACK (2 CLOTHS) TOP SCH (04:00)
[2017-07-31] MEDS: LEVOTHYROXINE SODIUM 150 MCG TAB PO SCH (05:46)
[2017-07-31] MEDS: FOSPHENYTOIN SODIUM 100 MG PE/2 ML VIAL IV SCH (06:21)
[2017-07-31] MEDS: CHLORHEXIDINE 0.12% (ORAL KIT) 15 ML CUP MT SCH ×2 (08:00→20:00)
[2017-07-31] MEDS: CITALOPRAM HYDROBROMIDE 20 MG TAB PO SCH (10:48)
[2017-07-31] MEDS: FERROUS SULFATE 325 MG (65 MG ELEMENTAL IRON) TAB PO SCH (10:48)
[2017-07-31] MEDS: DOCUSATE SODIUM 100 MG CAP PO SCH ×2 (10:48→22:57)
[2017-07-31] MEDS: FAMOTIDINE 20 MG TAB PO SCH ×2 (10:48→22:58)
[2017-07-31] MEDS: ALLOPURINOL 100 MG TAB PO SCH ×2 (10:49→22:58)
[2017-07-31] MEDS: SENNOSIDES 8.6 MG TAB PO PRN ×2 (10:49→22:58)
[2017-07-31] MEDS: DOCUSATE SODIUM 50 MG/SENNA 8.6 MG TAB PO SCH ×2 (10:49→22:58)
[2017-07-31] MEDS: ADULT - PICC FLUSH PRN FOR HEPARIN ALLERGY OR HIT DIAGNOSIS IV FLUSH (10:50)
--- NOTE | 2017-07-31 14:38 | HHI.PR ---
Subjective Remarks Patient is doing well and continues to work with PT. Pending bone marrow biopsy. Treatment planning and initiation planned after bone marrow biopsy results. Objective Vital Signs Date Time Temp Pulse Resp B/P (MAP) Pulse Ox O2 Delivery O2 Flow Rate FiO2 07/31/17 08:00 98.0 53 17 114/70 (85) 96 07/31/17 05:15 98.5 55 18 111/66 (81) 93 07/31/17 03:58 54 07/31/17 00:29 59 07/31/17 00:20 60 07/30/17 23:15 98.7 56 16 102/51 (68) 93 07/30/17 19:40 94 Nasal Cannula 2.00 07/30/17 19:40 Nasal Cannula 2.00 07/30/17 19:30 98.1 59 16 102/51 (68) 94 07/30/17 16:00 97.9 44 22 102/62 (75) 100 07/30/17 16:00 50 I/O 07/30/17 07/30/17 07/30/17 07/31/17 07/31/17 07/31/17 07:00 15:00 23:00 07:00 15:00 23:00 Intake Total 500 ml 480 ml 480 ml Output Total 900 ml Balance 500 ml 480 ml -420 ml Intake Oral 500 ml 480 ml 480 ml Output Urine Total 900 ml # Voids 3 5 # Bowel Movements 0 0 0 Result Diagram: 07/30/17 0630 07/30/17 0630 Objective Remarks GENERAL: NAD, A&Ox2 HEAD: Normocephalic. NECK: Supple, trachea midline. No lymphadenopathy. EYES: No scleral icterus. No injection or drainage. CARDIOVASCULAR: Regular rate and rhythm without murmurs, gallops, or rubs. RESPIRATORY: Breath sounds equal bilaterally. No accessory muscle use. GASTROINTESTINAL: Abdomen soft, non-tender, nondistended. MUSCULOSKELETAL: No cyanosis, or edema. SKIN: Warm and dry. NEURO: No focal neurological deficitis. A/P Problem List: (1) B-cell lymphoma ICD Code: C85.10 - Unspecified B-cell lymphoma, unspecified site (2) Brain mass ICD Code: G93.9 - Disorder of brain, unspecified (3) Hypertension ICD Code: I10 - Essential (primary) hypertension (4) Seizure ICD Code: R56.9 - Unspecified convulsions (5) Hyperlipidemia ICD Code: E78.5 - Hyperlipidemia, unspecified (6) Dementia without behavioral disturbance ICD Code: F03.90 - Unspecified dementia without behavioral disturbance Assessment and Plan 61-year-old female admitted secondary to encephalopathy found to be related to B -cell lymphoma metastasis into the brain Bone marrow biopsy pending. Plan to determine and initiate treatment based on bone marrow biopsy findings. Continue working with PT. Outpatient PT plan. Likely discharge scenarios discharged home with home health PT. 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 with vasogenic edema and midline shift status post biopsy Continue steroids Continue to follow clinically Neurology following Hypothyroidism Continue supplements Follows an outpatient Hypertension Continue baseline treatment Follow blood pressures Adjust treatments as needed Asthma No exacerbation Breathing treatments as needed h/o CVA with possible seizure activity at the time of the CVA - no seizures since and does not take AEDs Monitor for any seizure activity Keppra Cerebyx 100mg Q8 Hyperlipidemia Continue present treatment Follow as an outpatient Bipolar disorder No change to baseline treatments Obstructive sleep apnea CPAP Generalize physical deficit May be contributory by brain edema Continue physical therapy DVT prophylaxis Bleed risk is present SCDs Kwasi Mcfadden MD July 31, 2017 14:37
[2017-07-31] MEDS: FOSPHENYTOIN INJ 100 MGPE in SODIUM CHLORIDE 0.9% INJ 50 ML IV SCH ×2 (16:02→21:49)
--- NOTE | 2017-07-31 17:09 | PD.ONC.PN ---
Subjective Subjective Remarks Resting comfortably in bed in no distress. Objective Data Date Time Temp Pulse Resp B/P (MAP) Pulse Ox O2 Delivery O2 Flow Rate FiO2 07/31/17 08:00 52 07/31/17 08:00 98.0 53 17 114/70 (85) 96 07/31/17 05:15 98.5 55 18 111/66 (81) 93 07/31/17 03:58 54 07/31/17 00:29 59 07/31/17 00:20 60 07/30/17 23:15 98.7 56 16 102/51 (68) 93 07/30/17 19:40 94 Nasal Cannula 2.00 07/30/17 19:40 Nasal Cannula 2.00 07/30/17 19:30 98.1 59 16 102/51 (68) 94 07/31/17 07/31/17 07/31/17 07:00 15:00 23:00 Intake Total 480 ml 105 ml Output Total 900 ml Balance -420 ml 105 ml Result Diagram: 07/30/1762907/30/17629 Administered Medications Medications (Trade) Dose Ordered Sig/Thaddeus Route PRN Reason Start Time Stop Time Status Last Admin Dose Admin Senna/Docusate Sodium (Maddy-Colace) 1 tab BID PO 07/15/17 09:00 07/31/17 10:49 Magnesium Hydroxide (Milk Of Julio Licarley) 30 ml Q12H PRN PO Mild constipation 07/14/17 22:15 07/22/17 10:03 Sennosides (Senokot) 17.2 mg Q12H PRN PO Moderate constipation 07/14/17 22:15 07/31/17 10:49 Albuterol Sulfate (Albuterol Neb) 2.5 mg Q4HR NEB PRN NEB sob/wheezing 07/14/17 22:30 07/14/17 23:41 Allopurinol (Zyloprim) 100 mg BID PO 07/15/17 09:00 07/31/17 10:49 Atorvastatin Calcium (Lipitor) 40 mg HS PO 07/15/17 21:00 07/30/17 19:39 Citalopram Hydrobromide (CeleXA) 20 mg DAILY PO 07/15/17 09:00 07/31/17 10:48 Levothyroxine Sodium (Synthroid) 150 mcg DAILY@0700 PO 07/15/17 07:00 07/31/17 05:46 Quetiapine Fumarate (SEROquel) 25 mg HS PO 07/15/17 21:00 07/30/17 19:39 Albuterol/ Ipratropium (Duoneb Neb) 1 ampule Q4HR NEB PRN INH SHORTNESS OF BREATH 07/16/17 13:30 07/20/17 20:13 Chlorhexidine Gluconate (Peridex 0.12% Liq) 15 ml BID@08,20 MT 07/16/17 20:00 07/27/17 20:00 Famotidine (Pepcid) 20 mg BID PO 07/16/17 21:00 07/31/17 10:48 Chlorhexidine Gluconate (Chlorhexidine 2% Cloth) Taper DAILY@04 TOP 07/17/17 04:00 07/13/18 03:59 07/29/17 04:00 Heparin Sodium (Porcine) (Heparin Central Flush) See Protocol DAILY IV FLUSH 07/17/17 09:00 07/31/17 10:48 Sodium Chloride (NS Flush) See Protocol UNSCH PRN IV FLUSH FLUSH AFTER USING IV ACCESS 07/16/17 19:30 07/31/17 10:50 Docusate Sodium (Colace) 100 mg BID PO 07/17/17 21:00 07/31/17 10:48 Ondansetron HCl (Zofran Inj) 4 mg Q6H PRN IV PUSH NAUSEA OR VOMITING 07/17/17 10:45 07/24/17 18:06 Acetaminophen/ Hydrocodone Bitart ([place] 10-325 Mg) 1 tab Q4H PRN PO PAIN SCALE 1 TO 5 07/17/17 11:45 07/30/17 04:36 Acetaminophen/ Hydrocodone Bitart ([place] 10-325 Mg) 2 tab Q4H PRN PO PAIN SCALE 6 TO 10 07/17/17 11:45 07/24/17 15:43 Morphine Sulfate (Morphine Inj) 4 mg Q2H PRN IV PUSH PAIN SCALE 7 TO 10 07/17/17 11:45 07/20/17 09:44 Phenytoin (Dilantin) 100 mg Q8HR PO 07/22/17 14:00 Future Hold 07/25/17 13:35 Ferrous Sulfate (Ferrous Sulfate) 325 mg DAILY PO 07/24/17 09:00 07/31/17 10:48 Dexamethasone Sodium Phosphate (Decadron Inj) 3 mg Q8HR IV PUSH 07/25/17 22:00 07/31/17 14:34 Levetriacetam 500 mg/Sodium Chloride 105 ml @ 400 mls/hr Q6H IV 07/26/17 16:00 07/31/17 10:49 Fosphenytoin Sodium 100 mgpe/ Sodium Chloride 52 ml @ 208 mls/hr Q8H IV 07/31/17 15:00 07/31/17 16:02 Objective Remarks GENERAL: Well-nourished, well-developed patient. SKIN: Warm and dry. HEAD: Normocephalic. EYES: No scleral icterus. No injection or drainage. NECK: Supple, trachea midline. No JVD or lymphadenopathy. LYMPHATIC: No adenopathy. RESPIRATORY: . No accessory muscle use. EXTREMITIES: No edema. MUSCULOSKELETAL: Adequate muscle tone. 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 received 6 cycles of R-CHOP under the direction of Dr. Alves at [facility] in [place] (was in remission) --obtain CT C.A.P, bone marrow biopsy --LP flow cytometry and cytology --consult ophthalmology for eye exam. --HIV test. --Treatment would depend on location and full extent of disease. If tumor is isolated to the CSF and no other sites of disease, would treat with high-dose methotrexate as well as rituximab. If tumor is found in other sites of the body , would have more aggressive systemic therapy if the patient is able to tolerate. 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 HPI (brought forward from initial consult for continuity of care): admitted to the hospital on 07/14/2017 for further evaluation of confusion, slurred speech, and right-sided weakness. She was initially seen in the emergency room at [facility], and she was transferred to [facility] for neurosurgical evaluation. CT brain showed brain mass with midline shift of 6.8 mm. MRI brain 07/15/2017 with left basal ganglia mass with moderate associated vasogenic edema , mild to moderate hemispheric mass effect. She was seen by the neurosurgery service and on 07/17/2017 underwent a stereotactic biopsy of the left basal ganglia brain mass. Pathology report has returned as diffuse large B cell lymphoma with cells that are CD20 positive, C79A positive, BCL6 positive, BCL2 positive, MUM1 positive. Cells are negative for CD10. Ki-67 is 70%. h/o Hypothyroidism. 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 Hypertension. Osteoporosis. Asthma. Obstructive sleep apnea. Bipolar disorder. Non-Hodgkin's lymphoma. Acid reflux. Hyperlipidemia. Nephrolithiasis. Thyroid nodule. Plan 1. Primary PROJECT SURVEYOR lymphoma: awaiting results of bone marrow biopsy to ensure that patient does not have systemic disease. If no systemic disease present will discuss treatment with rituximab and high dose methotrexate with therapy to be initiated early next week. 2. History of diffuse large b cell lymphoma: s/p treatment with six cycles of RCHOP 2 years ago. vEy Melendez MD July 31, 2017 17:09
[2017-07-31] MEDS: ATORVASTATIN 40 MG TAB PO SCH (22:58)
[2017-07-31] MEDS: QUEtiapine FUMARATE 25 MG TAB PO SCH (22:58)
[2017-08-01] VITALS (10 sets, daily range): BP systolic 105–116; BP diastolic 60–73; PULSE 48–71; RESP 16–20; TEMP 97.2–99.4; O2SAT 93–98
[2017-08-01] MEDS: CHLORHEXIDINE GLUCONATE 2 % 1 PACK (2 CLOTHS) TOP SCH (03:57)
[2017-08-01] MEDS: levETIRAcetam INJ 500 MG in SODIUM CHLORIDE 0.9% INJ 100 ML IV SCH ×4 (04:09→21:01)
[2017-08-01] MEDS: DEXAMETHASONE SOD PHOS 4 MG/ML VIAL IV PUSH SCH (06:09)
[2017-08-01] MEDS: LEVOTHYROXINE SODIUM 150 MCG TAB PO SCH (06:09)
[2017-08-01] MEDS: FOSPHENYTOIN INJ 100 MGPE in SODIUM CHLORIDE 0.9% INJ 50 ML IV SCH ×3 (06:11→23:04)
[2017-08-01] MEDS: CHLORHEXIDINE 0.12% (ORAL KIT) 15 ML CUP MT SCH ×2 (08:00→20:00)
--- NOTE | 2017-08-01 08:06 | HHI.PR ---
Subjective Remarks She is up in the chair. Denies having new motor deficit. No change in vision. Has no pain at this time. Eating fairly well. Plan to start chemo. Objective Vitals Vital Signs Date Time Temp Pulse Resp B/P (MAP) Pulse Ox O2 Delivery O2 Flow Rate FiO2 08/01/17 04:00 48 08/01/17 04:00 98.3 48 18 108/70 (83) 98 08/01/17 00:00 49 08/01/17 00:00 98.0 49 20 116/66 (83) 98 07/31/17 23:39 98.7 49 20 116/72 (87) 95 07/31/17 20:00 98.1 50 18 121/65 (83) 95 07/31/17 19:32 Nasal Cannula 2.00 07/31/17 16:00 98.3 55 18 118/66 (83) 92 07/31/17 12:00 98.1 54 18 108/56 (73) 95 07/31/17 08:25 96 Nasal Cannula 2.00 I/O 07/31/17 07/31/17 07/31/17 08/01/17 08/01/17 08/01/17 07:00 15:00 23:00 07:00 15:00 23:00 Intake Total 480 ml 105 ml 607 ml Output Total 900 ml 1000 ml 300 ml Balance -420 ml 105 ml -393 ml -300 ml Intake Oral 480 ml 450 ml IV Total 105 ml 157 ml Output Urine Total 900 ml 1000 ml 300 ml # Voids 1 # Bowel Movements 0 Result Diagram: 07/30/17 0630 07/30/17 0630 Imaging Last Impressions Thyroid Ultrasound 07/30/17 0000 Signed Impressions: Service Date/Time: July 08:47 - CONCLUSION: 1. Diffusely heterogeneous multinodular thyroid gland. 2. 1.7 cm solid nodule in the inferior right lobe and 2 mixed nodules in the mid and inferior left pole meet criteria for fine needle aspiration. Frankie Dao MD Bone Biopsy CT 07/28/17 0000 Signed Impressions: Service Date/Time: Friday, July 28, 2017 13:46 - CONCLUSION: 1. Uncomplicated CT guided bone marrow aspirate. 2. Uncomplicated CT guided bone marrow biopsy. Israel Garvin MD Lumbar Puncture Fluoroscopy 07/27/17 Signed Impressions: Service Date/Time: Thursday, July 27, 2017 15:37 - CONCLUSION: Uncomplicated fluoroscopically guided lumbar puncture with pressures as above. Kwasi Wilkins MD Chest CT 07/26/17 Signed Impressions: Service Date/Time: Thursday, July 27, 2017 15:56 - CONCLUSION: 1. Atelectasis at the lung bases but no lung mass or adenopathy. No effusions. 2. Numerous bilateral thyroid nodules measuring up to about 1.5 cm in diameter. See abdomen CT for findings below the diaphragm. Job Barrera MD Abdomen/Pelvis CT 07/26/17 Signed Impressions: Service Date/Time: Thursday, July 27, 2017 15:56 - CONCLUSION: 1. No acute findings abdomen pelvic CT. No definite evidence for metastatic disease. 2.5 cm likely right adrenal adenoma. 2. Mild fatty liver. Job Barrera MD Head CT 07/25/17 Signed Impressions: Service Date/Time: Tuesday, July 25, 2017 14:37 - CONCLUSION: Persistent 3.2 cm mass seen in the left basal ganglia/caudate region. This appears more prominent. This demonstrates increased density which could represent some degree of hemorrhage. Some increased density was present on the prior postoperative CT examination. The previously seen air has resolved. There continues to be vasogenic edema and focal left to right midline shift. Israel Davis MD Chest X-Ray 07/16/17 1430 Signed Impressions: Service Date/Time: June 18:32 - CONCLUSION: Endotracheal tube tip is at the grupo. Slight retraction suggested. Israel Ruelas MD Brain MRI 07/15/17 Signed Impressions: Service Date/Time: Saturday, July 15, 2017 15:42 - CONCLUSION: Left basal ganglia mass with moderate associated vasogenic edema. Mild-moderate hemispheric mass effect. Serpiginous enhancement in the contralateral right mid to high convexity frontal region. Israel Ruelas MD Objective Remarks GENERAL: Awake and alert only speaks [place]ian-daughter translating-patient has been deemed to be not competent to make her medical decisions per psychiatry SKIN: Warm and dry. HEAD: Atraumatic. Normocephalic. EYES: Pupils equal and round. No scleral icterus. No injection or drainage. Extraocular muscles intact ENT: No nasal bleeding or discharge. Mucous membranes pink and moist. Tongue is midline NECK: Trachea midline. No JVD. Supple CARDIOVASCULAR: Regular rate and rhythm. S1-S2 no S3 or S4 no heave or thrill or rub or gallop RESPIRATORY: No accessory muscle use. Clear to auscultation. Breath sounds equal bilaterally. GASTROINTESTINAL: Abdomen soft, non-tender, nondistended. Hepatic and splenic margins not palpable. MUSCULOSKELETAL: Extremities without clubbing, cyanosis, or edema. No obvious deformities. NEUROLOGICAL: Awake and alert. No obvious cranial nerve deficits. Motor grossly within normal limits. Five out of 5 muscle strength in the arms and legs. Normal speech. Procedures Date of Surgery: Jul 17, 2017 Preoperative Diagnosis: Left basal ganglia brain mass Postoperative Diagnosis: Left basal ganglia APPLICATION SECURITY ARCHITECT lymphoma Procedure: Stereotactic biopsy of Left basal ganglia brain mass Anesthesia: general endotracheal Surgeon: Miguel Sutton Diamond Grinder(s): Eva Smith Operation and Findings: INDICATIONS FOR THE PROCEDURE Ms Sun is a 61 year-old female who presented with neurological findings of right sided weakness and was found to have left basal ganglia enhancing mass. The lesions had abnormal signal intensity and and characteristics consistent with a possible neoplastic, inflammatory, or infectious process. A stereotactic biopsy of the lesions was indicated. The [id number] details of the procedure, its indications, alternatives, risks and potential complications were fully discussed with the patient. The patient fully understood. All questions were answered. No guarantees were given. The patient voiced requesting the procedure and provided informed consents. The patient was offered the alternative of not having aggressive management. DETAILS OF THE SURGICAL PROCEDURE Preoperative planning Prior to the surgery the patient underwent an MRI of the brain according to the stereotactic protocol. The information from the MRI scan was transferred to the operating room via the hospital network and the preoperative planning of the lesion was made. A julia was made at the patients operative site according to the hospital policy. Surgical positioning The patient was then brought to the operating room. After induction of general anesthesia endotracheal intubation was performed. Bkilateral carlos hose and sequential compression devices were placed and kept throughout the procedure. The patient was positioned supine on a 3080 table over a soft mattress. All pressure points were carefully padded with an egg crate mattress. The eyes were tapped shut after ointment was applied by the anesthesiologist to prevent corneal abrasion. A Shannon hugger was placed over the exposed lower body to maintain control of the core body temperature. The head was held in rigid fixation using the [place] head mva reactor operator. Intraoperative registration The rigid body was attached to the [place] headholder. Intraoperative registration was then performed with the [facility]. The lesion was located in the three planes, sagittal, axial and coronal. An entry point was selected in the scalp. Surgical Approach and stereotactic biopsy The skin was prepped and draped in the usual sterile fashion. A linear incision in the left frontal region selected by the planning was outlined. The area was infiltrated with 1% lidocaine with epinephrine 1:100,000 dilution. A skin incision was made with a #10 blade. Small subgaleal bleeders were controlled with a bipolar a small self-retaining retractor was placed in the incision. The fascia and muscle were incised with a Bovie and retracted at each side. The Midas Freddy was brought into the field and a bur hole was made with an AM-8 drill bit. The duramatter was coagulated with a bipolar and opening increased for pressure and a very small corticotomy performed. At this point of the procedure the stereotactic biopsy arm was brought into the field and secured to the head mva reactor operator. The powder carrier was brought into the field, and the trajectory on the biopsy arm was created following the previously selected trajectory. Then, a stereotactic needle was carefully inserted into the brain at the center of the lesion and by gentle aspiration two initial biopsies were obtained, one of which was sent to the lab for frozen section, while the second kept for permanent histological annalysis. Meanwhile, additional specimens were obtained for permanent histologic analysis. At this point in the procedure , after waiting for awhile, the frozen section was called in and reported as lymphoma. The biopsy needle was carefully removed and the stereotactic device was removed. The incision was irrigated with a large amount of saline. A piece of Gelfoam was placed over the surface of the brain and a bur hole cover was placed. The incision was closed in layers. 3-0 Vicryl with interrupted sutures were used to close the fascial layers and galea. The skin was closed with chip. A sterile dressing was applied. At the end of the procedure the sponge, needle and instrument counts were all correct. Estimated blood loss was minimal. No blood transfusion was given. The patient received preoperative prophylactic antibiotics. No intraoperative complications occurred. The patient was transferred to the recovery room in stable condition. 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 Plan to determine and initiate treatment based on bone marrow biopsy findings. Continue working with PT. Outpatient PT plan. Likely discharge scenarios discharged home with home health PT. 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 with vasogenic edema and midline shift status post biopsy Continue steroids Continue to follow clinically Neurology following Hypothyroidism Continue supplements Follows an outpatient Hypertension Continue baseline treatment Follow blood pressures Adjust treatments as needed Asthma No exacerbation Breathing treatments as needed h/o CVA with possible seizure activity at the time of the CVA - no seizures since and does not take AEDs Monitor for any seizure activity Keppra Cerebyx 100mg Q8 Hyperlipidemia Continue present treatment Follow as an outpatient Bipolar disorder No change to baseline treatments Obstructive sleep apnea CPAP Generalize physical deficit May be contributory by brain edema Continue physical therapy DVT prophylaxis Bleed risk is present SCDs DC plan had bmbx pending results. Plan for chemo Plan to DC Home with home PT Mia Elizalde MD August 01, 2017 08:06
[2017-08-01] MEDS: FAMOTIDINE 20 MG TAB PO SCH ×2 (09:23→21:00)
[2017-08-01] MEDS: DOCUSATE SODIUM 100 MG CAP PO SCH ×2 (09:23→21:11)
[2017-08-01] MEDS: ALLOPURINOL 100 MG TAB PO SCH ×2 (09:23→21:00)
[2017-08-01] MEDS: CITALOPRAM HYDROBROMIDE 20 MG TAB PO SCH (09:23)
[2017-08-01] MEDS: DOCUSATE SODIUM 50 MG/SENNA 8.6 MG TAB PO SCH ×2 (09:23→21:00)
[2017-08-01] MEDS: FERROUS SULFATE 325 MG (65 MG ELEMENTAL IRON) TAB PO SCH (09:24)
[2017-08-01] MEDS: MAGNESIUM HYDROXIDE SUSP 30 ML CUP PO PRN (09:37)
--- NOTE | 2017-08-01 10:22 | PD.ONC.PN ---
Subjective Subjective Remarks Afebrile Patient resting in bed awake and smiling She continues to have right-sided facial droop Daughters at bedside Very happy to hear the news that she does not have lymphoma involvement in the bone marrow Objective Data Date Time Temp Pulse Resp B/P (MAP) Pulse Ox O2 Delivery O2 Flow Rate FiO2 08/01/17 09:21 97.9 61 18 110/66 (81) 96 08/01/17 08:20 53 08/01/17 04:00 48 08/01/17 04:00 98.3 48 18 108/70 (83) 98 08/01/17 00:00 49 08/01/17 00:00 98.0 49 20 116/66 (83) 98 07/31/17 23:39 98.7 49 20 116/72 (87) 95 07/31/17 20:00 98.1 50 18 121/65 (83) 95 07/31/17 19:32 Nasal Cannula 2.00 07/31/17 16:00 98.3 55 18 118/66 (83) 92 07/31/17 12:00 98.1 54 18 108/56 (73) 95 08/01/17 08/01/17 08/01/17 06:59 14:59 22:59 Output Total 300 ml Balance -300 ml Result Diagram: 07/30/1730 07/30/17 0630 Administered Medications Medications (Trade) Dose Ordered Sig/Thaddeus Route PRN Reason Start Time Stop Time Status Last Admin Dose Admin Senna/Docusate Sodium (Maddy-Colace) 1 tab BID PO 07/15/17 09:00 08/01/17 09:23 Magnesium Hydroxide (Milk Of Julio Liq) 30 ml Q12H PRN PO Mild constipation 07/14/17 22:15 08/01/17 09:37 Sennosides (Senokot) 17.2 mg Q12H PRN PO Moderate constipation 07/14/17 22:15 07/31/17 22:58 Albuterol Sulfate (Albuterol Neb) 2.5 mg Q4HR NEB PRN NEB sob/wheezing 07/14/17 22:30 07/14/17 23:41 Allopurinol (Zyloprim) 100 mg BID PO 07/15/17 09:00 08/01/17 09:23 Atorvastatin Calcium (Lipitor) 40 mg HS PO 07/15/17 21:00 07/31/17 22:58 Citalopram Hydrobromide (CeleXA) 20 mg DAILY PO 07/15/17 09:00 08/01/17 09:23 Levothyroxine Sodium (Synthroid) 150 mcg DAILY@0700 PO 07/15/17 07:00 08/01/17 06:09 Quetiapine Fumarate (SEROquel) 25 mg HS PO 07/15/17 21:00 07/31/17 22:58 Albuterol/ Ipratropium (Duoneb Neb) 1 ampule Q4HR NEB PRN INH SHORTNESS OF BREATH 07/16/17 13:30 07/20/17 20:13 Chlorhexidine Gluconate (Peridex 0.12% Liq) 15 ml BID@08,20 MT 07/16/17 20:00 07/27/17 20:00 Famotidine (Pepcid) 20 mg BID PO 07/16/17 21:00 08/01/17 09:23 Chlorhexidine Gluconate (Chlorhexidine 2% Cloth) Taper DAILY@04 TOP 07/17/17 04:00 07/13/18 03:59 07/29/17 04:00 Heparin Sodium (Porcine) (Heparin Central Flush) See Protocol DAILY IV FLUSH 07/17/17 09:00 08/01/17 09:00 Heparin Sodium (Porcine) (Heparin Central Flush) See Protocol UNSCH PRN IV FLUSH SEE PROTOCOL TABLE 07/16/17 19:30 07/31/17 22:59 Sodium Chloride (NS Flush) See Protocol UNSCH PRN IV FLUSH FLUSH AFTER USING IV ACCESS 07/16/17 19:30 07/31/17 10:50 Docusate Sodium (Colace) 100 mg BID PO 07/17/17 21:00 08/01/17 09:23 Ondansetron HCl (Zofran Inj) 4 mg Q6H PRN IV PUSH NAUSEA OR VOMITING 07/17/17 10:45 07/24/17 18:06 Acetaminophen/ Hydrocodone Bitart ([place] 10-325 Mg) 1 tab Q4H PRN PO PAIN SCALE 1 TO 5 07/17/17 11:45 07/30/17 04:36 Acetaminophen/ Hydrocodone Bitart (R[place] 10-325 Mg) 2 tab Q4H PRN PO PAIN SCALE 6 TO 10 07/17/17 11:45 07/24/17 15:43 Morphine Sulfate (Morphine Inj) 4 mg Q2H PRN IV PUSH PAIN SCALE 7 TO 10 07/17/17 11:45 07/20/17 09:44 Phenytoin (Dilantin) 100 mg Q8HR PO 07/22/17 14:00 Future Hold 07/25/17 13:35 Ferrous Sulfate (Ferrous Sulfate) 325 mg DAILY PO 07/24/17 09:00 08/01/17 09:24 Dexamethasone Sodium Phosphate (Decadron Inj) 3 mg Q8HR IV PUSH 07/25/17 22:00 08/01/17 06:09 Levetriacetam 500 mg/Sodium Chloride 105 ml @ 400 mls/hr Q6H IV 07/26/17 16:00 08/01/17 04:09 Fosphenytoin Sodium 100 mgpe/ Sodium Chloride 52 ml @ 208 mls/hr Q8H IV 07/31/17 15:00 08/01/17 06:11 Objective Remarks GENERAL: Older female, resting in bed in no obvious distress SKIN: Warm and dry. HEAD: Normocephalic. EYES: No injection or drainage. NECK: Supple, trachea midline. CARDIOVASCULAR: Regular rate and rhythm RESPIRATORY: Clear posteriorly. Breathing unlabored at rest. GASTROINTESTINAL: Abdomen soft, non-tender, nondistended. EXTREMITIES: No cyanosis NEUROLOGICAL: Awake and alert. Right sided facial droop. Right sided weakness. 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 Plan Bone marrow biopsy pathology shows no PROVISIONING SPECIALIST lymphoma involvement. I have spoken to the patient's primary oncologist and she is awaiting return call from Dr. Mack Musa who specializes in lymphoma to see if his recommendation is to continue with the Rituxan and methotrexate as this is a PROVISIONING SPECIALIST recurrence and not a traditional PROVISIONING SPECIALIST primary lymphoma. In the meantime we will continue the steroids. Attending Statement The exam, history, and the medical decision-making described in the above note were completed with the assistance of the mid-level provider. I reviewed and agree with the findings presented. I attest that I had a [id number] encounter with the patient on the same day, and personally performed and documented my assessment and findings in the medical record. family in room and discussed upcoming treatment with high dose MTX and leukovorin rescue. she has profound right sided weakness and will continue steroids until she has received tx. will convert to po decadron 4 mg po qid. Sho Reaves August 01, 2017 10:22 Rory Saldivar MD August 01, 2017 13:25
[2017-08-01] MEDS: DEXAMETHASONE 4 MG TAB PO SCH ×2 (18:29→23:04)
[2017-08-01] MEDS: ATORVASTATIN 40 MG TAB PO SCH (21:00)
[2017-08-01] MEDS: QUEtiapine FUMARATE 25 MG TAB PO SCH (21:11)
[2017-08-02] VITALS (10 sets, daily range): BP systolic 96–123; BP diastolic 43–76; PULSE 46–73; RESP 15–18; TEMP 97.9–98.9; O2SAT 93–99
[2017-08-02] MEDS: CHLORHEXIDINE GLUCONATE 2 % 1 PACK (2 CLOTHS) TOP SCH (04:00)
[2017-08-02] MEDS: levETIRAcetam INJ 500 MG in SODIUM CHLORIDE 0.9% INJ 100 ML IV SCH ×2 (04:33→09:33)
[2017-08-02] MEDS: DEXAMETHASONE 4 MG TAB PO SCH ×4 (04:33→23:00)
[2017-08-02] MEDS: LEVOTHYROXINE SODIUM 150 MCG TAB PO SCH (05:51)
[2017-08-02] MEDS: FOSPHENYTOIN INJ 100 MGPE in SODIUM CHLORIDE 0.9% INJ 50 ML IV SCH (05:51)
--- NOTE | 2017-08-02 07:49 | HHI.PR ---
Subjective Remarks In the chair, family at bedside. The patient denies having any new motor or sensory deficit. No change in vision. Eating well. Able to take by mouth medications. No fever chills no nausea or vomiting. No diarrhea constipation. Objective Vitals Vital Signs Date Time Temp Pulse Resp B/P (MAP) Pulse Ox O2 Delivery O2 Flow Rate FiO2 08/02/17 04:00 Nasal Cannula 2.00 08/02/17 04:00 52 08/02/17 04:00 98.2 52 18 100/55 (70) 97 08/02/17 00:00 98.4 53 18 110/76 (87) 97 08/02/17 00:00 54 08/01/17 20:00 99.4 71 18 105/66 (79) 94 08/01/17 20:00 57 08/01/17 17:31 97.2 59 16 112/73 (86) 96 08/01/17 16:12 56 08/01/17 13:05 98 Nasal Cannula 2.00 08/01/17 13:03 98.5 63 18 109/60 (76) 98 08/01/17 12:56 62 08/01/17 11:00 93 Nasal Cannula 2.50 08/01/17 09:21 97.9 61 18 110/66 (81) 96 08/01/17 08:20 53 I/O 08/01/17 08/01/17 08/01/17 08/02/17 08/02/17 08/02/17 07:00 15:00 23:00 07:00 15:00 23:00 Intake Total 480 ml Output Total 300 ml 1000 ml 800 ml Balance -300 ml -1000 ml -320 ml Intake Oral 480 ml Output Urine Total 300 ml 1000 ml 800 ml Result Diagram: 07/30/17 0630 07/30/17 0630 Imaging Last Impressions Thyroid Ultrasound 07/30/17 0000 Signed Impressions: Service Date/Time: July 08:47 - CONCLUSION: 1. Diffusely heterogeneous multinodular thyroid gland. 2. 1.7 cm solid nodule in the inferior right lobe and 2 mixed nodules in the mid and inferior left pole meet criteria for fine needle aspiration. Frankie Dao MD Bone Biopsy CT 07/28/17 0000 Signed Impressions: Service Date/Time: Friday, July 28, 2017 13:46 - CONCLUSION: 1. Uncomplicated CT guided bone marrow aspirate. 2. Uncomplicated CT guided bone marrow biopsy. Israel Garvin MD Lumbar Puncture Fluoroscopy 07/27/17 0000 Signed Impressions: Service Date/Time: Thursday, July 27, 2017 15:37 - CONCLUSION: Uncomplicated fluoroscopically guided lumbar puncture with pressures as above. Kwasi Wilkins MD Chest CT 07/26/17 0000 Signed Impressions: Service Date/Time: Thursday, July 27, 2017 15:56 - CONCLUSION: 1. Atelectasis at the lung bases but no lung mass or adenopathy. No effusions. 2. Numerous bilateral thyroid nodules measuring up to about 1.5 cm in diameter. See abdomen CT for findings below the diaphragm. Job Barrera MD Abdomen/Pelvis CT 07/26/17 0000 Signed Impressions: Service Date/Time: Thursday, July 27, 2017 15:56 - CONCLUSION: 1. No acute findings abdomen pelvic CT. No definite evidence for metastatic disease. 2.5 cm likely right adrenal adenoma. 2. Mild fatty liver. Job Barrera MD Head CT 07/25/17 0000 Signed Impressions: Service Date/Time: Tuesday, July 25, 2017 14:37 - CONCLUSION: Persistent 3.2 cm mass seen in the left basal ganglia/caudate region. This appears more prominent. This demonstrates increased density which could represent some degree of hemorrhage. Some increased density was present on the prior postoperative CT examination. The previously seen air has resolved. There continues to be vasogenic edema and focal left to right midline shift. Israel Davis MD Chest X-Ray 07/16/17 1430 Signed Impressions: Service Date/Time: June 18:32 - CONCLUSION: Endotracheal tube tip is at the grupo. Slight retraction suggested. Israel Ruelas MD Brain MRI 07/15/17 0000 Signed Impressions: Service Date/Time: Saturday, July 15, 2017 15:42 - CONCLUSION: Left basal ganglia mass with moderate associated vasogenic edema. Mild-moderate hemispheric mass effect. Serpiginous enhancement in the contralateral right mid to high convexity frontal region. Israel Ruelas MD Objective Remarks GENERAL: Awake and alert only speaks Ukrainian-daughter translating-patient has been deemed to be not competent to make her medical decisions per psychiatry SKIN: Warm and dry. HEAD: Atraumatic. Normocephalic. EYES: Pupils equal and round. No scleral icterus. No injection or drainage. Extraocular muscles intact ENT: No nasal bleeding or discharge. Mucous membranes pink and moist. Tongue is midline NECK: Trachea midline. No JVD. Supple CARDIOVASCULAR: Regular rate and rhythm. S1-S2 no S3 or S4 no heave or thrill or rub or gallop RESPIRATORY: No accessory muscle use. Clear to auscultation. Breath sounds equal bilaterally. GASTROINTESTINAL: Abdomen soft, non-tender, nondistended. Hepatic and splenic margins not palpable. MUSCULOSKELETAL: Extremities without clubbing, cyanosis, or edema. No obvious deformities. NEUROLOGICAL: Awake and alert. No obvious cranial nerve deficits. Motor grossly within normal limits. Five out of 5 muscle strength in the arms and legs. Normal speech. 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 The lesions had abnormal signal intensity and and characteristics consistent with a possible neoplastic, inflammatory, or infectious process. A stereotactic biopsy of the lesions was indicated. The [id number] details of the procedure, its indications, alternatives, risks and potential complications were fully discussed with the patient. The patient fully understood. All questions were answered. No guarantees were given. The patient voiced requesting the procedure and provided informed consents. The patient was offered the alternative of not having aggressive management. DETAILS OF THE SURGICAL PROCEDURE Preoperative planning Prior to the surgery the patient underwent an MRI of the brain according to the stereotactic protocol. The information from the MRI scan was transferred to the operating room via the hospital network and the preoperative planning of the lesion was made. A julia was made at the patients operative site according to the hospital policy. Surgical positioning The patient was then brought to the operating room. After induction of general anesthesia endotracheal intubation was performed. Bkilateral carlos hose and sequential compression devices were placed and kept throughout the procedure. The patient was positioned supine on a 3080 table over a soft mattress. All pressure points were carefully padded with an egg crate mattress. The eyes were tapped shut after ointment was applied by the anesthesiologist to prevent corneal abrasion. A Shannon hugger was placed over the exposed lower body to maintain control of the core body temperature. The head was held in rigid fixation using the [place] head golf professional. Intraoperative registration The rigid body was attached to the [place] headholder. Intraoperative registration was then performed with the [facility]. The lesion was located in the three planes, sagittal, axial and coronal. An entry point was selected in the scalp. Surgical Approach and stereotactic biopsy The skin was prepped and draped in the usual sterile fashion. A linear incision in the left frontal region selected by the planning was outlined. The area was infiltrated with 1% lidocaine with epinephrine 1:100,000 dilution. A skin incision was made with a #10 blade. Small subgaleal bleeders were controlled with a bipolar a small self-retaining retractor was placed in the incision. The fascia and muscle were incised with a Bovie and retracted at each side. The Midas Freddy was brought into the field and a bur hole was made with an AM-8 drill bit. The duramatter was coagulated with a bipolar and opening increased for pressure and a very small corticotomy performed. At this point of the procedure the stereotactic biopsy arm was brought into the field and secured to the head golf professional. The station engineer main line was brought into the field, and the trajectory on the biopsy arm was created following the previously selected trajectory. Then, a stereotactic needle was carefully inserted into the brain at the center of the lesion and by gentle aspiration two initial biopsies were obtained, one of which was sent to the lab for frozen section, while the second kept for permanent histological annalysis. Meanwhile, additional specimens were obtained for permanent histologic analysis. At this point in the procedure , after waiting for awhile, the frozen section was called in and reported as lymphoma. The biopsy needle was carefully removed and the stereotactic device was removed. The incision was irrigated with a large amount of saline. A piece of Gelfoam was placed over the surface of the brain and a bur hole cover was placed. The incision was closed in layers. 3-0 Vicryl with interrupted sutures were used to close the fascial layers and galea. The skin was closed with chip. A sterile dressing was applied. At the end of the procedure the sponge, needle and instrument counts were all correct. Estimated blood loss was minimal. No blood transfusion was given. The patient received preoperative prophylactic antibiotics. No intraoperative complications occurred. The patient was transferred to the recovery room in stable condition. 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 Plan to determine and initiate treatment based on bone marrow biopsy findings. Continue working with PT. Outpatient PT plan. Likely discharge scenarios discharged home with home health PT. 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 with vasogenic edema and midline shift status post biopsy Continue steroids Continue to follow clinically Neurology following Hypothyroidism Continue supplements Follows an outpatient Hypertension Continue baseline treatment Follow blood pressures Adjust treatments as needed Asthma No exacerbation Breathing treatments as needed h/o CVA with possible seizure activity at the time of the CVA - no seizures since and does not take AEDs Monitor for any seizure activity Keppra change to PO Cerebyx 100mg Q8 DCd and change to phenytoin PO Hyperlipidemia Continue present treatment Follow as an outpatient Bipolar disorder No change to baseline treatments Obstructive sleep apnea CPAP Generalize physical deficit May be contributory by brain edema Continue physical therapy DVT prophylaxis Bleed risk is present SCDs DC plan had bmbx pending results. Plan for chemo per hem/onc Plan to DC Home with home PT when cleared by hem/onc Mia Elizalde MD August 02, 2017 07:49
[2017-08-02] MEDS: CHLORHEXIDINE 0.12% (ORAL KIT) 15 ML CUP MT SCH ×2 (08:00→20:16)
[2017-08-02] MEDS: FAMOTIDINE 20 MG TAB PO SCH ×2 (09:33→22:56)
[2017-08-02] MEDS: DOCUSATE SODIUM 50 MG/SENNA 8.6 MG TAB PO SCH ×2 (09:33→22:56)
[2017-08-02] MEDS: CITALOPRAM HYDROBROMIDE 20 MG TAB PO SCH (09:33)
[2017-08-02] MEDS: ALLOPURINOL 100 MG TAB PO SCH ×2 (09:33→22:56)
[2017-08-02] MEDS: FERROUS SULFATE 325 MG (65 MG ELEMENTAL IRON) TAB PO SCH (09:33)
[2017-08-02] MEDS: DOCUSATE SODIUM 100 MG CAP PO SCH ×2 (09:33→22:56)
[2017-08-02] MEDS: PHENYTOIN SODIUM 100 MG CAP PO SCH ×2 (12:29→22:56)
[2017-08-02] MEDS ORDERED: WHEEMIS3 (14:01)
[2017-08-02] MEDS: QUEtiapine FUMARATE 25 MG TAB PO SCH (22:56)
[2017-08-02] MEDS: levETIRAcetam 500 MG TAB PO SCH (22:56)
[2017-08-02] MEDS: ATORVASTATIN 40 MG TAB PO SCH (22:56)
[2017-08-03] VITALS (11 sets, daily range): BP systolic 93–133; BP diastolic 39–76; PULSE 50–70; RESP 16–18; TEMP 97.8–99; O2SAT 93–97
[2017-08-03] MEDS: CHLORHEXIDINE GLUCONATE 2 % 1 PACK (2 CLOTHS) TOP SCH (03:54)
[2017-08-03] MEDS: LEVOTHYROXINE SODIUM 150 MCG TAB PO SCH (05:50)
[2017-08-03] MEDS: PHENYTOIN SODIUM 100 MG CAP PO SCH ×3 (05:50→21:49)
[2017-08-03] MEDS: DEXAMETHASONE 4 MG TAB PO SCH ×3 (05:50→19:15)
--- NOTE | 2017-08-03 08:09 | HHI.PR ---
Subjective Remarks In bed denies headache, new motor deficit. Family at bedside very supportive. Patient denies headache, change in vision. Denies fever or chills. Objective Vitals Vital Signs Date Time Temp Pulse Resp B/P (MAP) Pulse Ox O2 Delivery O2 Flow Rate FiO2 08/03/17 06:03 98.4 50 18 93/53 (66) 97 08/03/17 04:11 51 08/03/17 00:43 99.0 57 16 93/39 (57) 97 08/03/17 00:00 56 08/02/17 22:42 96 Nasal Cannula 2.50 08/02/17 22:42 56 15 96/43 (60) 96 08/02/17 20:00 60 08/02/17 17:00 98.9 58 16 111/70 (84) 93 08/02/17 16:32 65 08/02/17 12:33 73 18 123/68 (86) 96 08/02/17 12:00 67 08/02/17 08:23 98 Nasal Cannula 2.00 08/02/17 08:17 46 I/O 08/02/17 08/02/17 08/02/17 08/03/17 08/03/17 08/03/17 07:00 15:00 23:00 07:00 15:00 23:00 Intake Total 480 ml 157 ml 360 ml Output Total 800 ml 300 ml Balance -320 ml 157 ml 60 ml Intake Oral 480 ml 360 ml IV Total 157 ml Output Urine Total 800 ml 300 ml # Bowel Movements 1 Result Diagram: 07/30/17 0630 07/30/17 0630 Imaging Last Impressions Thyroid Ultrasound 07/30/17 0000 Signed Impressions: Service Date/Time: July 08:47 - CONCLUSION: 1. Diffusely heterogeneous multinodular thyroid gland. 2. 1.7 cm solid nodule in the inferior right lobe and 2 mixed nodules in the mid and inferior left pole meet criteria for fine needle aspiration. Frankie Dao MD Bone Biopsy CT 07/28/17 0000 Signed Impressions: Service Date/Time: Friday, July 28, 2017 13:46 - CONCLUSION: 1. Uncomplicated CT guided bone marrow aspirate. 2. Uncomplicated CT guided bone marrow biopsy. Israel Garvin MD Lumbar Puncture Fluoroscopy 4/30/18 0000 Signed Impressions: Service Date/Time: Thursday, July 27, 2017 15:37 - CONCLUSION: Uncomplicated fluoroscopically guided lumbar puncture with pressures as above. Kwasi Wilkins MD Chest CT 07/26/17 Signed Impressions: Service Date/Time: Thursday, July 27, 2017 15:56 - CONCLUSION: 1. Atelectasis at the lung bases but no lung mass or adenopathy. No effusions. 2. Numerous bilateral thyroid nodules measuring up to about 1.5 cm in diameter. See abdomen CT for findings below the diaphragm. Job Barrera MD Abdomen/Pelvis CT 07/26/17 Signed Impressions: Service Date/Time: Thursday, July 27, 2017 15:56 - CONCLUSION: 1. No acute findings abdomen pelvic CT. No definite evidence for metastatic disease. 2.5 cm likely right adrenal adenoma. 2. Mild fatty liver. Job Barrera MD Head CT 07/25/17 Signed Impressions: Service Date/Time: Tuesday, July 25, 2017 14:37 - CONCLUSION: Persistent 3.2 cm mass seen in the left basal ganglia/caudate region. This appears more prominent. This demonstrates increased density which could represent some degree of hemorrhage. Some increased density was present on the prior postoperative CT examination. The previously seen air has resolved. There continues to be vasogenic edema and focal left to right midline shift. Israel Davis MD Chest X-Ray 07/16/17 1430 Signed Impressions: Service Date/Time: June 18:32 - CONCLUSION: Endotracheal tube tip is at the grupo. Slight retraction suggested. Israel Ruelas MD Brain MRI 07/15/17 Signed Impressions: Service Date/Time: Saturday, July 15, 2017 15:42 - CONCLUSION: Left basal ganglia mass with moderate associated vasogenic edema. Mild-moderate hemispheric mass effect. Serpiginous enhancement in the contralateral right mid to high convexity frontal region. Israel Ruelas MD Objective Remarks GENERAL: Awake and alert only speaks Luxembourgish-daughter translating-patient has been deemed to be not competent to make her medical decisions per psychiatry SKIN: Warm and dry. HEAD: Atraumatic. Normocephalic. EYES: Pupils equal and round. No scleral icterus. No injection or drainage. Extraocular muscles intact ENT: No nasal bleeding or discharge. Mucous membranes pink and moist. Tongue is midline NECK: Trachea midline. No JVD. Supple CARDIOVASCULAR: Regular rate and rhythm. S1-S2 no S3 or S4 no heave or thrill or rub or gallop RESPIRATORY: No accessory muscle use. Clear to auscultation. Breath sounds equal bilaterally. GASTROINTESTINAL: Abdomen soft, non-tender, nondistended. Hepatic and splenic margins not palpable. MUSCULOSKELETAL: Extremities without clubbing, cyanosis, or edema. No obvious deformities. NEUROLOGICAL: Awake and alert. No obvious cranial nerve deficits. Motor grossly within normal limits. Five out of 5 muscle strength in the arms and legs. Normal speech. 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 The lesions had abnormal signal intensity and and characteristics consistent with a possible neoplastic, inflammatory, or infectious process. A stereotactic biopsy of the lesions was indicated. The [id number] details of the procedure, its indications, alternatives, risks and potential complications were fully discussed with the patient. The patient fully understood. All questions were answered. No guarantees were given. The patient voiced requesting the procedure and provided informed consents. The patient was offered the alternative of not having aggressive management. DETAILS OF THE SURGICAL PROCEDURE Preoperative planning Prior to the surgery the patient underwent an MRI of the brain according to the stereotactic protocol. The information from the MRI scan was transferred to the operating room via the hospital network and the preoperative planning of the lesion was made. A julia was made at the patients operative site according to the hospital policy. Surgical positioning The patient was then brought to the operating room. After induction of general anesthesia endotracheal intubation was performed. Bkilateral carlos hose and sequential compression devices were placed and kept throughout the procedure. The patient was positioned supine on a 3080 table over a soft mattress. All pressure points were carefully padded with an egg crate mattress. The eyes were tapped shut after ointment was applied by the anesthesiologist to prevent corneal abrasion. A Shannon hugger was placed over the exposed lower body to maintain control of the core body temperature. The head was held in rigid fixation using the [place] head well puller. Intraoperative registration The rigid body was attached to the [place] headholder. Intraoperative registration was then performed with the [facility]. The lesion was located in the three planes, sagittal, axial and coronal. An entry point was selected in the scalp. Surgical Approach and stereotactic biopsy The skin was prepped and draped in the usual sterile fashion. A linear incision in the left frontal region selected by the planning was outlined. The area was infiltrated with 1% lidocaine with epinephrine 1:100,000 dilution. A skin incision was made with a #10 blade. Small subgaleal bleeders were controlled with a bipolar a small self-retaining retractor was placed in the incision. The fascia and muscle were incised with a Bovie and retracted at each side. The Midas Freddy was brought into the field and a bur hole was made with an AM-8 drill bit. The duramatter was coagulated with a bipolar and opening increased for pressure and a very small corticotomy performed. At this point of the procedure the stereotactic biopsy arm was brought into the field and secured to the head well puller. The hvac/r service technician was brought into the field, and the trajectory on the biopsy arm was created following the previously selected trajectory. Then, a stereotactic needle was carefully inserted into the brain at the center of the lesion and by gentle aspiration two initial biopsies were obtained, one of which was sent to the lab for frozen section, while the second kept for permanent histological annalysis. Meanwhile, additional specimens were obtained for permanent histologic analysis. At this point in the procedure , after waiting for awhile, the frozen section was called in and reported as lymphoma. The biopsy needle was carefully removed and the stereotactic device was removed. The incision was irrigated with a large amount of saline. A piece of Gelfoam was placed over the surface of the brain and a bur hole cover was placed. The incision was closed in layers. 3-0 Vicryl with interrupted sutures were used to close the fascial layers and galea. The skin was closed with chip. A sterile dressing was applied. At the end of the procedure the sponge, needle and instrument counts were all correct. Estimated blood loss was minimal. No blood transfusion was given. The patient received preoperative prophylactic antibiotics. No intraoperative complications occurred. The patient was transferred to the recovery room in stable condition. 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 Continue working with PT. Outpatient PT plan. Likely discharge scenarios discharged home with home health PT. 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 with vasogenic edema and midline shift status post biopsy Continue steroids Continue to follow clinically Neurology following Hypothyroidism Continue supplements Follows an outpatient Hypertension Continue baseline treatment Follow blood pressures Adjust treatments as needed Asthma No exacerbation Breathing treatments as needed h/o CVA with possible seizure activity at the time of the CVA - no seizures since and does not take AEDs Monitor for any seizure activity Keppra change to PO Cerebyx 100mg Q8 DCd and change to phenytoin PO Hyperlipidemia Continue present treatment Follow as an outpatient Bipolar disorder No change to baseline treatments Obstructive sleep apnea CPAP Generalize physical deficit May be contributory by brain edema Continue physical therapy DVT prophylaxis Bleed risk is present SCDs DC plan had bmbx . Plan for chemo per hem/onc Plan to DC Home with home PT when cleared by hem/onc Mia Elizalde MD August 03, 2017 08:09
[2017-08-03] MEDS: ALLOPURINOL 100 MG TAB PO SCH ×2 (11:31→21:49)
[2017-08-03] MEDS: DOCUSATE SODIUM 100 MG CAP PO SCH ×2 (11:31→21:00)
[2017-08-03] MEDS: DOCUSATE SODIUM 50 MG/SENNA 8.6 MG TAB PO SCH ×2 (11:31→21:49)
[2017-08-03] MEDS: CITALOPRAM HYDROBROMIDE 20 MG TAB PO SCH (11:32)
[2017-08-03] MEDS: FAMOTIDINE 20 MG TAB PO SCH ×2 (11:32→21:50)
[2017-08-03] MEDS: FERROUS SULFATE 325 MG (65 MG ELEMENTAL IRON) TAB PO SCH (11:32)
[2017-08-03] MEDS: levETIRAcetam 500 MG TAB PO SCH ×2 (11:32→21:49)
[2017-08-03] MEDS: ONDANSETRON HCL 4 MG/2 ML VIAL IV PUSH PRN (15:04)
[2017-08-03] MEDS: CHLORHEXIDINE 0.12% (ORAL KIT) 15 ML CUP MT SCH (20:00)
[2017-08-03] MEDS: ATORVASTATIN 40 MG TAB PO SCH (21:50)
[2017-08-03] MEDS: QUEtiapine FUMARATE 25 MG TAB PO SCH (21:51)
[2017-08-04] VITALS (11 sets, daily range): BP systolic 87–112; BP diastolic 39–63; PULSE 51–73; RESP 16–18; TEMP 98.4–99.7; O2SAT 96–98
[2017-08-04] MEDS: DEXAMETHASONE 4 MG TAB PO SCH ×4 (01:09→18:20)
[2017-08-04] MEDS: CHLORHEXIDINE GLUCONATE 2 % 1 PACK (2 CLOTHS) TOP SCH (01:58)
[2017-08-04] MEDS: LEVOTHYROXINE SODIUM 150 MCG TAB PO SCH (06:25)
[2017-08-04] MEDS: PHENYTOIN SODIUM 100 MG CAP PO SCH ×3 (06:26→21:30)
--- NOTE | 2017-08-04 07:37 | HHI.PR ---
Subjective Remarks Follow-up encephalopathy, CVA, brain metastasis status post biopsy currently undergoing chemo Patient mentation is improving she is more awake and alert conversant. No new motor deficit no headaches. No improvement. Objective Vitals Vital Signs Date Time Temp Pulse Resp B/P (MAP) Pulse Ox O2 Delivery O2 Flow Rate FiO2 08/04/17 04:41 98.7 53 16 100/60 (73) 97 08/04/17 04:01 52 08/04/17 01:02 98.9 53 16 95/63 (74) 98 08/03/17 23:59 52 08/03/17 20:07 55 08/03/17 20:00 99.0 59 18 105/60 (75) 95 08/03/17 20:00 Nasal Cannula 2.50 08/03/17 16:00 98.4 69 17 133/75 (94) 95 08/03/17 15:47 98.4 69 17 133/75 (94) 95 08/03/17 13:00 98.5 64 16 126/76 (93) 93 08/03/17 11:20 Nasal Cannula 2.50 08/03/17 10:00 97.8 70 16 115/67 (83) 96 I/O 08/03/17 08/03/17 08/03/17 08/04/17 08/04/17 08/04/17 07:00 15:00 23:00 07:00 15:00 23:00 Intake Total 360 ml 240 ml Output Total 300 ml 800 ml 450 ml Balance 60 ml -800 ml -210 ml Intake Oral 360 ml 240 ml Output Urine Total 300 ml 800 ml 450 ml Imaging Last Impressions Thyroid Ultrasound 07/30/17 0000 Signed Impressions: Service Date/Time: July 08:47 - CONCLUSION: 1. Diffusely heterogeneous multinodular thyroid gland. 2. 1.7 cm solid nodule in the inferior right lobe and 2 mixed nodules in the mid and inferior left pole meet criteria for fine needle aspiration. Frankie Dao MD Bone Biopsy CT 07/28/17 0000 Signed Impressions: Service Date/Time: Friday, July 28, 2017 13:46 - CONCLUSION: 1. Uncomplicated CT guided bone marrow aspirate. 2. Uncomplicated CT guided bone marrow biopsy. Israel Garvin MD Lumbar Puncture Fluoroscopy 4/30/18 0000 Signed Impressions: Service Date/Time: Thursday, July 27, 2017 15:37 - CONCLUSION: Uncomplicated fluoroscopically guided lumbar puncture with pressures as above. Kwasi Wilkins MD Chest CT 07/26/17 Signed Impressions: Service Date/Time: Thursday, July 27, 2017 15:56 - CONCLUSION: 1. Atelectasis at the lung bases but no lung mass or adenopathy. No effusions. 2. Numerous bilateral thyroid nodules measuring up to about 1.5 cm in diameter. See abdomen CT for findings below the diaphragm. Job Barrera MD Abdomen/Pelvis CT 07/26/17 Signed Impressions: Service Date/Time: Thursday, July 27, 2017 15:56 - CONCLUSION: 1. No acute findings abdomen pelvic CT. No definite evidence for metastatic disease. 2.5 cm likely right adrenal adenoma. 2. Mild fatty liver. Job Barrera MD Head CT 07/25/17 Signed Impressions: Service Date/Time: Tuesday, July 25, 2017 14:37 - CONCLUSION: Persistent 3.2 cm mass seen in the left basal ganglia/caudate region. This appears more prominent. This demonstrates increased density which could represent some degree of hemorrhage. Some increased density was present on the prior postoperative CT examination. The previously seen air has resolved. There continues to be vasogenic edema and focal left to right midline shift. Israel Davis MD Chest X-Ray 07/16/17 1430 Signed Impressions: Service Date/Time: June 18:32 - CONCLUSION: Endotracheal tube tip is at the grupo. Slight retraction suggested. Israel Ruelas MD Brain MRI 07/15/17 Signed Impressions: Service Date/Time: Saturday, July 15, 2017 15:42 - CONCLUSION: Left basal ganglia mass with moderate associated vasogenic edema. Mild-moderate hemispheric mass effect. Serpiginous enhancement in the contralateral right mid to high convexity frontal region. Israel Ruelas MD Objective Remarks GENERAL: Awake and alert only speaks Latvian-daughter translating-patient has been deemed to be not competent to make her medical decisions per psychiatry SKIN: Warm and dry. HEAD: Atraumatic. Normocephalic. EYES: Pupils equal and round. No scleral icterus. No injection or drainage. Extraocular muscles intact ENT: No nasal bleeding or discharge. Mucous membranes pink and moist. Tongue is midline NECK: Trachea midline. No JVD. Supple CARDIOVASCULAR: Regular rate and rhythm. S1-S2 no S3 or S4 no heave or thrill or rub or gallop RESPIRATORY: No accessory muscle use. Clear to auscultation. Breath sounds equal bilaterally. GASTROINTESTINAL: Abdomen soft, non-tender, nondistended. Hepatic and splenic margins not palpable. MUSCULOSKELETAL: Extremities without clubbing, cyanosis, or edema. No obvious deformities. NEUROLOGICAL: Awake and alert. No obvious cranial nerve deficits. Motor grossly within normal limits. Five out of 5 muscle strength in the arms and legs. Normal speech. Procedures Date of Surgery: Jul 17, 2017 Preoperative Diagnosis: Left basal ganglia brain mass Postoperative Diagnosis: Left basal ganglia CLAMMER lymphoma Procedure: Stereotactic biopsy of Left basal ganglia brain mass Anesthesia: general endotracheal Surgeon: Miguel Sutton Roving Court Reporter(s): Eva Smith Operation and Findings: INDICATIONS FOR THE PROCEDURE Ms Sun is a 61 year-old female who presented with neurological findings of right sided weakness and was found to have left basal ganglia enhancing mass. The lesions had abnormal signal intensity and and characteristics consistent with a possible neoplastic, inflammatory, or infectious process. A stereotactic biopsy of the lesions was indicated. The [id number] details of the procedure, its indications, alternatives, risks and potential complications were fully discussed with the patient. The patient fully understood. All questions were answered. No guarantees were given. The patient voiced requesting the procedure and provided informed consents. The patient was offered the alternative of not having aggressive management. DETAILS OF THE SURGICAL PROCEDURE Preoperative planning Prior to the surgery the patient underwent an MRI of the brain according to the stereotactic protocol. The information from the MRI scan was transferred to the operating room via the hospital network and the preoperative planning of the lesion was made. A julia was made at the patients operative site according to the hospital policy. Surgical positioning The patient was then brought to the operating room. After induction of general anesthesia endotracheal intubation was performed. Bkilateral carlos hose and sequential compression devices were placed and kept throughout the procedure. The patient was positioned supine on a 3080 table over a soft mattress. All pressure points were carefully padded with an egg crate mattress. The eyes were tapped shut after ointment was applied by the anesthesiologist to prevent corneal abrasion. A Shannon hugger was placed over the exposed lower body to maintain control of the core body temperature. The head was held in rigid fixation using the [place] head of visual merchandising. Intraoperative registration The rigid body was attached to the [place] headholder. Intraoperative registration was then performed with the [facility]. The lesion was located in the three planes, sagittal, axial and coronal. An entry point was selected in the scalp. Surgical Approach and stereotactic biopsy The skin was prepped and draped in the usual sterile fashion. A linear incision in the left frontal region selected by the planning was outlined. The area was infiltrated with 1% lidocaine with epinephrine 1:100,000 dilution. A skin incision was made with a #10 blade. Small subgaleal bleeders were controlled with a bipolar a small self-retaining retractor was placed in the incision. The fascia and muscle were incised with a Bovie and retracted at each side. The Midas Freddy was brought into the field and a bur hole was made with an AM-8 drill bit. The duramatter was coagulated with a bipolar and opening increased for pressure and a very small corticotomy performed. At this point of the procedure the stereotactic biopsy arm was brought into the field and secured to the head of visual merchandising. The lithopone mill worker was brought into the field, and the trajectory on the biopsy arm was created following the previously selected trajectory. Then, a stereotactic needle was carefully inserted into the brain at the center of the lesion and by gentle aspiration two initial biopsies were obtained, one of which was sent to the lab for frozen section, while the second kept for permanent histological annalysis. Meanwhile, additional specimens were obtained for permanent histologic analysis. At this point in the procedure , after waiting for awhile, the frozen section was called in and reported as lymphoma. The biopsy needle was carefully removed and the stereotactic device was removed. The incision was irrigated with a large amount of saline. A piece of Gelfoam was placed over the surface of the brain and a bur hole cover was placed. The incision was closed in layers. 3-0 Vicryl with interrupted sutures were used to close the fascial layers and galea. The skin was closed with chip. A sterile dressing was applied. At the end of the procedure the sponge, needle and instrument counts were all correct. Estimated blood loss was minimal. No blood transfusion was given. The patient received preoperative prophylactic antibiotics. No intraoperative complications occurred. The patient was transferred to the recovery room in stable condition. 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 Plan for chemo hem onc ff/ However patient can be transfered back to [facility] to resume chemo there. Hem/onc will get in touch with oncologist at [facility]. Continue working with PT. 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 with vasogenic edema and midline shift status post biopsy Continue steroids Continue to follow clinically Neurology following Hypothyroidism, chronic Continue supplements Follows an outpatient Hypertension Continue baseline treatment Follow blood pressures Adjust treatments as needed Asthma No exacerbation Breathing treatments as needed h/o CVA with possible seizure activity at the time of the CVA - no seizures since and does not take AEDs Monitor for any seizure activity Continue Keppra PO Cerebyx 100mg Q8 DCd and change to phenytoin PO continue Hyperlipidemia Continue present treatment Follow as an outpatient Bipolar disorder No change to baseline treatments Obstructive sleep apnea CPAP Generalize physical deficit May be contributory by brain edema Continue physical therapy DVT prophylaxis Bleed risk is present SCDs DC plan had bmbx . Plan for chemo per hem/onc Plan to DC Home with home PT when cleared by hem/onc However patient need chemo and can be done at [place] discussed with oncology Dr Schneider Will get in touch with oncology at [facility] Can transfer back to [place] when arrangements are done Mia Elizalde MD August 04, 2017 07:37
[2017-08-04] MEDS: CHLORHEXIDINE 0.12% (ORAL KIT) 15 ML CUP MT SCH ×2 (08:00→18:46)
[2017-08-04] MEDS: DOCUSATE SODIUM 100 MG CAP PO SCH ×2 (09:45→20:48)
[2017-08-04] MEDS: DOCUSATE SODIUM 50 MG/SENNA 8.6 MG TAB PO SCH ×2 (09:45→20:46)
[2017-08-04] MEDS: levETIRAcetam 500 MG TAB PO SCH ×2 (09:45→20:46)
[2017-08-04] MEDS: FAMOTIDINE 20 MG TAB PO SCH ×2 (09:45→20:46)
[2017-08-04] MEDS: FERROUS SULFATE 325 MG (65 MG ELEMENTAL IRON) TAB PO SCH (09:46)
[2017-08-04] MEDS: CITALOPRAM HYDROBROMIDE 20 MG TAB PO SCH (09:46)
[2017-08-04] MEDS: ALLOPURINOL 100 MG TAB PO SCH ×2 (09:46→20:46)
[2017-08-04] MEDS: ADULT - PICC FLUSH PRN FOR HEPARIN ALLERGY OR HIT DIAGNOSIS IV FLUSH (09:47)
[2017-08-04] MEDS ORDERED: SODIUM BICARBONATE 8.4% INJ 100 MEQ in DEXTROSE 5% IN WATE 1000ML INJ 1,000 ML IV SCH ×2 (15:00)
[2017-08-04 15:17] LABS: AUTOMATED NEUTROPHIL # 7.1 TH/MM3 (1.8-7.7); BASOPHIL % 0.4 % (0.0-2.0); EOSINOPHIL # 0.3 TH/MM3 (0-0.4); EOSINOPHIL % 2.7 % (0.0-4.0); HEMATOCRIT 32.7 % (35.0-46.0); HEMOGLOBIN 10.8 GM/DL (11.6-15.3); LYMPH % 19.4 % (9.0-44.0); MEAN CELL VOLUME 95.8 FL (80.0-100.0); MEAN CORPUSCULAR HEMOGLOBIN 31.6 PG (27.0-34.0); MEAN PLATELET VOLUME 7.5 FL (7.0-11.0); MONO % 9.5 % (0.0-8.0); PLATELET COUNT 272 TH/MM3 (150-450); RED BLOOD COUNT 3.41 MIL/MM3 (4.00-5.30); RED CELL DISTRIBUTION WIDTH 14.4 % (11.6-17.2); WHITE BLOOD COUNT 10.4 TH/MM3 (4.0-11.0)
[2017-08-04 15:33] LABS: ALT (GPT) 57 U/L (10-53); AST (GOT) 40 U/L (15-37); BICARBONATE 30.7 MEQ/L (21.0-32.0); BLOOD UREA NITROGEN 15 MG/DL (7-18); CALCIUM 8.5 MG/DL (8.5-10.1); CHLORIDE 106 MEQ/L (98-107); CREATININE 0.73 MG/DL (0.50-1.00); GLOMERULAR FILTRATION RATE 81 ML/MIN (>89); GLUCOSE,RANDOM 135 MG/DL (74-106); SODIUM (NA) 142 MEQ/L (136-145)
[2017-08-04 15:36] LABS: ALKALINE PHOSPHATASE 112 U/L (45-117); TOTAL BILIRUBIN ADULT 0.2 MG/DL (0.2-1.0); TOTAL PROTEIN 6.7 GM/DL (6.4-8.2)
[2017-08-04] MEDS ORDERED: SODIUM BICARBONATE 8.4% INJ 50 ML ONE (16:32)
[2017-08-04] MEDS: ATORVASTATIN 40 MG TAB PO SCH (20:46)
[2017-08-04] MEDS: QUEtiapine FUMARATE 25 MG TAB PO SCH (20:46)
--- NOTE | 2017-08-04 23:55 | PD.ONC.PN ---
Subjective Subjective Remarks Resting in bed. Sister at bedside. Mental status stable. Objective Data Date Time Temp Pulse Resp B/P (MAP) Pulse Ox O2 Delivery O2 Flow Rate FiO2 08/04/17 20:34 Nasal Cannula 2.50 08/04/17 20:28 99.7 60 16 95/59 (71) 97 08/04/17 20:02 08/04/17 19:14 63 08/04/17 16:20 58 08/04/17 16:00 98.4 58 18 100/51 (67) 96 08/04/17 14:19 Nasal Cannula 2.50 08/04/17 12:30 98.9 54 18 112/49 (70) 97 08/04/17 12:30 68 08/04/17 09:45 98.5 62 16 87/39 (55) 96 08/04/17 08:20 51 08/04/17 04:41 98.7 53 16 100/60 (73) 97 08/04/17 04:01 52 08/04/17 01:02 98.9 53 16 95/63 (74) 98 08/03/17 23:59 52 Result Diagram: 08/04/17 1455 08/04/17 1455 Laboratory Results Laboratory Tests Test 08/04/17 14:55 White Blood Count 10.4 TH/MM3 Red Blood Count 3.41 MIL/MM3 Hemoglobin 10.8 GM/DL Hematocrit 32.7 % Mean Corpuscular Volume 95.8 FL Mean Corpuscular Hemoglobin 31.6 PG Mean Corpuscular Hemoglobin Concent 33.0 % Red Cell Distribution Width 14.4 % Platelet Count 272 TH/MM3 Mean Platelet Volume 7.5 FL Neutrophils (%) (Auto) 68.0 % Lymphocytes (%) (Auto) 19.4 % Monocytes (%) (Auto) 9.5 % Eosinophils (%) (Auto) 2.7 % Basophils (%) (Auto) 0.4 % Neutrophils # (Auto) 7.1 TH/MM3 Lymphocytes # (Auto) 2.0 TH/MM3 Monocytes # (Auto) 1.0 TH/MM3 Eosinophils # (Auto) 0.3 TH/MM3 Basophils # (Auto) 0.0 TH/MM3 CBC Comment DIFF FINAL Differential Comment Urine pH 7.0 Blood Urea Nitrogen 15 MG/DL Creatinine 0.73 MG/DL Random Glucose 135 MG/DL Total Protein 6.7 GM/DL Albumin 3.0 GM/DL Calcium Level 8.5 MG/DL Alkaline Phosphatase 112 U/L Aspartate Amino Transf (AST/SGOT) 40 U/L Alanine Aminotransferase (ALT/SGPT) 57 U/L Total Bilirubin 0.2 MG/DL Sodium Level 142 MEQ/L Potassium Level 3.8 MEQ/L Chloride Level 106 MEQ/L Carbon Dioxide Level 30.7 MEQ/L Anion Gap 5 MEQ/L Estimat Glomerular Filtration Rate 81 ML/MIN Administered Medications Medications (Trade) Dose Ordered Sig/Thaddeus Route PRN Reason Start Time Stop Time Status Last Admin Dose Admin Senna/Docusate Sodium (Maddy-Colace) 1 tab BID PO 07/15/17 09:00 08/04/17 20:46 Magnesium Hydroxide (Milk Of Magnesia Liq) 30 ml Q12H PRN PO Mild constipation 07/14/17 22:15 08/01/17 09:37 Sennosides (Senokot) 17.2 mg Q12H PRN PO Moderate constipation 07/14/17 22:15 07/31/17 22:58 Lactulose (Lactulose Liq) 30 ml DAILY PRN PO SEVERE CONSITIPATION/ IF PO 07/14/17 22:15 08/02/17 09:39 Albuterol Sulfate (Albuterol Neb) 2.5 mg Q4HR NEB PRN NEB sob/wheezing 07/14/17 22:30 07/14/17 23:41 Allopurinol (Zyloprim) 100 mg BID PO 07/15/17 09:00 08/04/17 20:46 Atorvastatin Calcium (Lipitor) 40 mg HS PO 07/15/17 21:00 08/04/17 20:46 Citalopram Hydrobromide (CeleXA) 20 mg DAILY PO 07/15/17 09:00 08/04/17 09:46 Levothyroxine Sodium (Synthroid) 150 mcg DAILY@0700 PO 07/15/17 07:00 08/04/17 06:25 Quetiapine Fumarate (SEROquel) 25 mg HS PO 07/15/17 21:00 08/04/17 20:46 Albuterol/ Ipratropium (Duoneb Neb) 1 ampule Q4HR NEB PRN INH SHORTNESS OF BREATH 07/16/17 13:30 07/20/17 20:13 Chlorhexidine Gluconate (Peridex 0.12% Liq) 15 ml BID@08,20 MT 07/16/17 20:00 08/01/17 20:00 Famotidine (Pepcid) 20 mg BID PO 07/16/17 21:00 08/04/17 20:46 Chlorhexidine Gluconate (Chlorhexidine 2% Cloth) Taper DAILY@04 TOP 07/17/17 04:00 07/13/18 03:59 07/29/17 04:00 Heparin Sodium (Porcine) (Heparin Central Flush) See Protocol DAILY IV FLUSH 07/17/17 09:00 08/04/17 09:45 Heparin Sodium (Porcine) (Heparin Central Flush) See Protocol UNSCH PRN IV FLUSH SEE PROTOCOL TABLE 07/16/17 19:30 07/31/17 22:59 Sodium Chloride (NS Flush) See Protocol UNSCH PRN IV FLUSH FLUSH AFTER USING IV ACCESS 07/16/17 19:30 08/04/17 09:47 Docusate Sodium (Colace) 100 mg BID PO 07/17/17 21:00 08/04/17 20:48 Ondansetron HCl (Zofran Inj) 4 mg Q6H PRN IV PUSH NAUSEA OR VOMITING 07/17/17 10:45 08/03/17 15:04 Acetaminophen/ Hydrocodone Bitart (Parmele 10-325 Mg) 1 tab Q4H PRN PO PAIN SCALE 1 TO 5 07/17/17 11:45 07/30/17 04:36 Acetaminophen/ Hydrocodone Bitart (Parmele 10-325 Mg) 2 tab Q4H PRN PO PAIN SCALE 6 TO 10 07/17/17 11:45 07/24/17 15:43 Morphine Sulfate (Morphine Inj) 4 mg Q2H PRN IV PUSH PAIN SCALE 7 TO 10 07/17/17 11:45 07/20/17 09:44 Phenytoin (Dilantin) 100 mg Q8HR PO 07/22/17 14:00 Future Hold 07/25/17 13:35 Ferrous Sulfate (Ferrous Sulfate) 325 mg DAILY PO 07/24/17 09:00 08/04/17 09:46 Dexamethasone (Decadron) 4 mg Q6HR PO 08/01/17 18:00 08/04/17 18:20 Levetriacetam (Keppra) 1,000 mg Q12HR PO 08/02/17 21:00 08/04/17 20:46 Phenytoin (Dilantin) 100 mg Q8HR PO 08/02/17 14:00 08/04/17 21:30 Sodium Bicarbonate 100 meq/Dextrose 1,100 ml @ 42 mls/hr Q24H IV 08/04/17 15:00 08/05/17 14:59 08/04/17 16:51 Objective Remarks GENERAL: Well-nourished, well-developed patient. SKIN: Warm and dry. HEAD: Normocephalic. EYES: No scleral icterus. No injection or drainage. NECK: Supple, trachea midline. No JVD or lymphadenopathy. LYMPHATIC: No adenopathy. CARDIOVASCULAR: Regular rate and rhythm without murmurs. RESPIRATORY: Breath sounds equal bilaterally. No accessory muscle use. GASTROINTESTINAL: Abdomen soft, non-tender, nondistended. EXTREMITIES: No cyanosis, or edema. MUSCULOSKELETAL: Adequate muscle tone. NEUROLOGICAL: No obvious focal deficit. Awake, alert, and oriented x3. PSYCHIATRIC: Appropriate mood and affect; insight and judgment normal. 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 received 6 cycles of R-CHOP under the direction of Dr. Alves at [facility] in [place] (was in remission) --obtain CT C.A.P, bone marrow biopsy --LP flow cytometry and cytology --consult ophthalmology for eye exam. --HIV test. --Treatment would depend on location and full extent of disease. If tumor is isolated to the CSF and no other sites of disease, would treat with high-dose methotrexate as well as rituximab. If tumor is found in other sites of the body , would have more aggressive systemic therapy if the patient is able to tolerate. Assessment 61y/o female with SALESPERSON AUTOM[employer]IL[employer] lymphoma. Plan 1. Primary SALESPERSON [employer] lymphoma, SALESPERSON [employer] relapse approximately 2 years after definitive treatment of lymphoma: No evidence of systemic disease on imaging. Bone marrow biopsy negative. Eye exam negative. Will plan to move forward with high dose methotrexate and rituximab. Discussed treatment of SALESPERSON [employer] lymphoma with daughter at bedside. Discussed treatment with rituximab and high dose methotrexate. Discussed regimen to consist of methotrexate at 8000 mg/m2 IV and rituximab 375 mg/m2. Discussed that cycles would be given every 14 days for 4-6 cycles. Would follow imaging to determine response. Discussed monthly maintenance methotrexate. Whole brain radiation therapy is an option however given good mental and physical status prior to development of symptoms as well as high risk of dementia with WBRT will move forward with systemic therapy. Discussed side effects of methotrexate including but not limited to liver toxicity, kidney toxicity, bone marrow suppression, lung toxicity. Will move forward with therapy as below: rituximab 375 mg/mg on D0 methotrexate 8000 mg/m2 on D1 over four hours. Discussed with pharmacy use of preservative free methotrexate. Alkaline hydration to maintain urine ph greater than 7. Will give leucovorin 25 mg IV over 15 minutes on day 1 starting 24 hours from initiation of methotrexate infusion and continuing every 6 hours until methotreate concentration is less than 0.1 micromol/L. Will monitor daily methotrexate levels. 2. History of diffuse large b cell lymphoma: s/p treatment with six cycles of R EPOCH and RCHOP 2 years ago. 3. Thyroid nodule: s/p recent biopsy with benign findings. Evy Melendez MD August 04, 2017 23:55
[2017-08-05] VITALS (16 sets, daily range): BP systolic 90–154; BP diastolic 48–116; PULSE 48–72; RESP 16–20; TEMP 97.5–100; O2SAT 95–99
[2017-08-05] MEDS: DEXAMETHASONE 4 MG TAB PO SCH ×5 (00:20→23:59)
[2017-08-05] MEDS: CHLORHEXIDINE GLUCONATE 2 % 1 PACK (2 CLOTHS) TOP SCH (00:20)
[2017-08-05 04:44] LABS: AUTOMATED NEUTROPHIL # 5.2 TH/MM3 (1.8-7.7); BASOPHIL # 0.1 TH/MM3 (0-0.2); BASOPHIL % 0.7 % (0.0-2.0); EOSINOPHIL # 0.2 TH/MM3 (0-0.4); EOSINOPHIL % 2.6 % (0.0-4.0); HEMOGLOBIN 10.5 GM/DL (11.6-15.3); LYMPH % 20.5 % (9.0-44.0); LYMPHOCYTE # 1.6 TH/MM3 (1.0-4.8); MEAN CELL VOLUME 95.6 FL (80.0-100.0); MEAN CORPUSCULAR HEMOGLOBIN 32.4 PG (27.0-34.0); MEAN CORPUSCULAR HGB CONC 33.9 % (32.0-36.0); MEAN PLATELET VOLUME 7.6 FL (7.0-11.0); MONO % 10.3 % (0.0-8.0); MONOCYTE # 0.8 TH/MM3 (0-0.9); NEUT % 65.9 % (16.0-70.0); PLATELET COUNT 236 TH/MM3 (150-450); RED BLOOD COUNT 3.25 MIL/MM3 (4.00-5.30); RED CELL DISTRIBUTION WIDTH 13.7 % (11.6-17.2); WHITE BLOOD COUNT 7.9 TH/MM3 (4.0-11.0)
[2017-08-05 05:11] LABS: AST (GOT) 37 U/L (15-37); BICARBONATE 30.3 MEQ/L (21.0-32.0); BLOOD UREA NITROGEN 14 MG/DL (7-18); CALCIUM 8.8 MG/DL (8.5-10.1); CHLORIDE 105 MEQ/L (98-107); CREATININE 0.65 MG/DL (0.50-1.00); GLOMERULAR FILTRATION RATE 92 ML/MIN (>89); GLUCOSE,RANDOM 107 MG/DL (74-106); SODIUM (NA) 143 MEQ/L (136-145)
[2017-08-05 05:17] LABS: ALKALINE PHOSPHATASE 112 U/L (45-117); ALT (GPT) 60 U/L (10-53); TOTAL BILIRUBIN ADULT 0.3 MG/DL (0.2-1.0); TOTAL PROTEIN 6.5 GM/DL (6.4-8.2)
[2017-08-05] MEDS: LEVOTHYROXINE SODIUM 150 MCG TAB PO SCH (06:25)
[2017-08-05] MEDS: PHENYTOIN SODIUM 100 MG CAP PO SCH ×3 (06:27→21:37)
--- NOTE | 2017-08-05 07:30 | HHI.PR ---
Subjective Remarks Follow-up encephalopathy, CVA, brain metastasis status post biopsy currently undergoing chemo Patient mentation is not improving, per family today morning she was noted more confused. No new motor deficit, no headaches. No improvement. Objective Vitals Vital Signs Date Time Temp Pulse Resp B/P (MAP) Pulse Ox O2 Delivery O2 Flow Rate FiO2 08/05/17 04:23 48 08/05/17 04:05 98.7 48 16 101/54 (70) 97 08/05/17 00:13 98.8 53 16 90/57 (68) 97 08/05/17 00:07 54 08/04/17 20:34 Nasal Cannula 2.50 08/04/17 20:28 99.7 60 16 95/59 (71) 97 08/04/17 20:02 08/04/17 19:14 63 08/04/17 16:20 58 08/04/17 16:00 98.4 58 18 100/51 (67) 96 08/04/17 14:19 Nasal Cannula 2.50 08/04/17 12:30 98.9 54 18 112/49 (70) 97 08/04/17 12:30 68 08/04/17 09:45 98.5 62 16 87/39 (55) 96 08/04/17 08:20 51 I/O 08/04/17 08/04/17 08/04/17 08/05/17 08/05/17 08/05/17 07:00 15:00 23:00 07:00 15:00 23:00 Intake Total 240 ml 1050 ml Output Total 450 ml 350 ml 100 ml Balance -210 ml 700 ml -100 ml Intake Oral 240 ml 1050 ml Output Urine Total 450 ml 350 ml 100 ml # Voids 3 Result Diagram: 08/05/17 0425 08/05/17 0425 Imaging Last Impressions Thyroid Ultrasound 07/30/17 0000 Signed Impressions: Service Date/Time: July 08:47 - CONCLUSION: 1. Diffusely heterogeneous multinodular thyroid gland. 2. 1.7 cm solid nodule in the inferior right lobe and 2 mixed nodules in the mid and inferior left pole meet criteria for fine needle aspiration. Frankie Dao MD Bone Biopsy CT 07/28/17 0000 Signed Impressions: Service Date/Time: Friday, July 28, 2017 13:46 - CONCLUSION: 1. Uncomplicated CT guided bone marrow aspirate. 2. Uncomplicated CT guided bone marrow biopsy. Israel Garvin MD Lumbar Puncture Fluoroscopy 07/27/17 0000 Signed Impressions: Service Date/Time: Thursday, July 27, 2017 15:37 - CONCLUSION: Uncomplicated fluoroscopically guided lumbar puncture with pressures as above. Kwasi Wilkins MD Chest CT 07/26/17 Signed Impressions: Service Date/Time: Thursday, July 27, 2017 15:56 - CONCLUSION: 1. Atelectasis at the lung bases but no lung mass or adenopathy. No effusions. 2. Numerous bilateral thyroid nodules measuring up to about 1.5 cm in diameter. See abdomen CT for findings below the diaphragm. Job Barrera MD Abdomen/Pelvis CT 07/26/17 0000 Signed Impressions: Service Date/Time: Thursday, July 27, 2017 15:56 - CONCLUSION: 1. No acute findings abdomen pelvic CT. No definite evidence for metastatic disease. 2.5 cm likely right adrenal adenoma. 2. Mild fatty liver. Job Barrera MD Head CT 07/25/17 0000 Signed Impressions: Service Date/Time: Tuesday, July 25, 2017 14:37 - CONCLUSION: Persistent 3.2 cm mass seen in the left basal ganglia/caudate region. This appears more prominent. This demonstrates increased density which could represent some degree of hemorrhage. Some increased density was present on the prior postoperative CT examination. The previously seen air has resolved. There continues to be vasogenic edema and focal left to right midline shift. Israel Davis MD Chest X-Ray 07/16/17 1430 Signed Impressions: Service Date/Time: June 18:32 - CONCLUSION: Endotracheal tube tip is at the grupo. Slight retraction suggested. Israel Ruelas MD Brain MRI 07/15/17 0000 Signed Impressions: Service Date/Time: Saturday, July 15, 2017 15:42 - CONCLUSION: Left basal ganglia mass with moderate associated vasogenic edema. Mild-moderate hemispheric mass effect. Serpiginous enhancement in the contralateral right mid to high convexity frontal region. Israel Ruelas MD Objective Remarks GENERAL: Awake and alert only speaks Setswana-daughter translating-patient has been deemed to be not competent to make her medical decisions per psychiatry SKIN: Warm and dry. HEAD: Atraumatic. Normocephalic. EYES: Pupils equal and round. No scleral icterus. No injection or drainage. Extraocular muscles intact ENT: No nasal bleeding or discharge. Mucous membranes pink and moist. Tongue is midline NECK: Trachea midline. No JVD. Supple CARDIOVASCULAR: Regular rate and rhythm. S1-S2 no S3 or S4 no heave or thrill or rub or gallop RESPIRATORY: No accessory muscle use. Clear to auscultation. Breath sounds equal bilaterally. GASTROINTESTINAL: Abdomen soft, non-tender, nondistended. Hepatic and splenic margins not palpable. MUSCULOSKELETAL: Extremities without clubbing, cyanosis, or edema. No obvious deformities. NEUROLOGICAL: Awake and alert. No obvious cranial nerve deficits. Motor grossly within normal limits. Five out of 5 muscle strength in the arms and legs. Normal speech. 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 The lesions had abnormal signal intensity and and characteristics consistent with a possible neoplastic, inflammatory, or infectious process. A stereotactic biopsy of the lesions was indicated. The [id number] details of the procedure, its indications, alternatives, risks and potential complications were fully discussed with the patient. The patient fully understood. All questions were answered. No guarantees were given. The patient voiced requesting the procedure and provided informed consents. The patient was offered the alternative of not having aggressive management. DETAILS OF THE SURGICAL PROCEDURE Preoperative planning Prior to the surgery the patient underwent an MRI of the brain according to the stereotactic protocol. The information from the MRI scan was transferred to the operating room via the hospital network and the preoperative planning of the lesion was made. A julia was made at the patients operative site according to the hospital policy. Surgical positioning The patient was then brought to the operating room. After induction of general anesthesia endotracheal intubation was performed. Bkilateral carlos hose and sequential compression devices were placed and kept throughout the procedure. The patient was positioned supine on a 3080 table over a soft mattress. All pressure points were carefully padded with an egg crate mattress. The eyes were tapped shut after ointment was applied by the anesthesiologist to prevent corneal abrasion. A Shannon hugger was placed over the exposed lower body to maintain control of the core body temperature. The head was held in rigid fixation using the [employer] [place] head of quality. Intraoperative registration The rigid body was attached to the [employer] [facility] headholder. Intraoperative registration was then performed with the [facility]. The lesion was located in the three planes, sagittal, axial and coronal. An entry point was selected in the scalp. Surgical Approach and stereotactic biopsy The skin was prepped and draped in the usual sterile fashion. A linear incision in the left frontal region selected by the planning was outlined. The area was infiltrated with 1% lidocaine with epinephrine 1:100,000 dilution. A skin incision was made with a #10 blade. Small subgaleal bleeders were controlled with a bipolar a small self-retaining retractor was placed in the incision. The fascia and muscle were incised with a Bovie and retracted at each side. The Midas Freddy was brought into the field and a bur hole was made with an AM-8 drill bit. The duramatter was coagulated with a bipolar and opening increased for pressure and a very small corticotomy performed. At this point of the procedure the stereotactic biopsy arm was brought into the field and secured to the head of quality. The cement gun operator was brought into the field, and the trajectory on the biopsy arm was created following the previously selected trajectory. Then, a stereotactic needle was carefully inserted into the brain at the center of the lesion and by gentle aspiration two initial biopsies were obtained, one of which was sent to the lab for frozen section, while the second kept for permanent histological annalysis. Meanwhile, additional specimens were obtained for permanent histologic analysis. At this point in the procedure , after waiting for awhile, the frozen section was called in and reported as lymphoma. The biopsy needle was carefully removed and the stereotactic device was removed. The incision was irrigated with a large amount of saline. A piece of Gelfoam was placed over the surface of the brain and a bur hole cover was placed. The incision was closed in layers. 3-0 Vicryl with interrupted sutures were used to close the fascial layers and galea. The skin was closed with chip. A sterile dressing was applied. At the end of the procedure the sponge, needle and instrument counts were all correct. Estimated blood loss was minimal. No blood transfusion was given. The patient received preoperative prophylactic antibiotics. No intraoperative complications occurred. The patient was transferred to the recovery room in stable condition. 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 Plan for chemo hem onc ff/ However patient can be transferred back to [facility] to resume chemo there. Hem/onc will get in touch with oncologist at [facility]. Continue working with PT. 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 with vasogenic edema and midline shift status post biopsy Continue steroids Continue to follow clinically Neurology following Hypothyroidism, chronic Continue supplements Follows as outpatient Hypertension Continue baseline treatment Follow blood pressures Adjust treatments as needed Asthma No exacerbation Breathing treatments as needed H/o CVA with possible seizure activity at the time of the CVA - no seizures since and does not take AEDs Monitor for any seizure activity Continue Keppra PO Cerebyx 100mg Q8 DCd and change to phenytoin PO continue Hyperlipidemia Continue present treatment Follow as an outpatient Bipolar disorder No change to baseline treatments Obstructive sleep apnea CPAP Generalize physical deficit May be contributory by brain edema Continue physical therapy DVT prophylaxis Bleed risk is present SCDs DC plan Had bmbx . Plan for chemo per hem/onc Plan to DC Home with home PT when cleared by hem/onc However patient need chemo and can be done at [place] discussed with oncology Dr Wyatt Will get in touch with oncology at [facility] Can transfer back to [facility] when arrangements are done Mia Elizalde MD August 05, 2017 07:30
[2017-08-05] MEDS: CHLORHEXIDINE 0.12% (ORAL KIT) 15 ML CUP MT SCH ×2 (08:00→20:00)
[2017-08-05] MEDS ORDERED: SODIUM BICARBONATE 8.4% INJ 100 MEQ in DEXTROSE 5% IN WATE 1000ML INJ 1,000 ML IV SCH ×2 (09:00)
[2017-08-05] MEDS: FERROUS SULFATE 325 MG (65 MG ELEMENTAL IRON) TAB PO SCH (09:00)
[2017-08-05] MEDS: DOCUSATE SODIUM 50 MG/SENNA 8.6 MG TAB PO SCH ×2 (09:11→21:37)
[2017-08-05] MEDS: FAMOTIDINE 20 MG TAB PO SCH ×2 (09:12→21:36)
[2017-08-05] MEDS: CITALOPRAM HYDROBROMIDE 20 MG TAB PO SCH (09:12)
[2017-08-05] MEDS: ALLOPURINOL 100 MG TAB PO SCH ×2 (09:12→21:37)
[2017-08-05] MEDS: DOCUSATE SODIUM 100 MG CAP PO SCH ×2 (09:12→21:37)
[2017-08-05] MEDS: levETIRAcetam 500 MG TAB PO SCH ×2 (09:12→21:36)
--- NOTE | 2017-08-05 10:12 | PD.ONC.PN ---
Subjective Subjective Remarks Afebrile Patient with minimal verbal response Daughter at the bedside states overall she has been doing well Discussed that we are currently awaiting her urine pH to be above 7 before we can begin methotrexate Objective Data Date Time Temp Pulse Resp B/P (MAP) Pulse Ox O2 Delivery O2 Flow Rate FiO2 08/05/17 08:58 98.0 61 18 150/116 (127) 99 118/64 (82) 08/05/17 04:23 48 08/05/17 04:05 98.7 48 16 101/54 (70) 97 08/05/17 00:13 98.8 53 16 90/57 (68) 97 08/05/17 00:07 54 08/04/17 20:34 Nasal Cannula 2.50 08/04/17 20:28 99.7 60 16 95/59 (71) 97 08/04/17 20:02 08/04/17 19:14 63 08/04/17 16:20 58 08/04/17 16:00 98.4 58 18 100/51 (67) 96 08/04/17 14:19 Nasal Cannula 2.50 08/04/17 12:30 98.9 54 18 112/49 (70) 97 08/04/17 12:30 68 08/05/17 08/05/17 08/05/17 07:00 15:00 23:00 Intake Total 700 ml Output Total 100 ml Balance -100 ml 700 ml Result Diagram: 08/05/17 0425 08/05/17 0425 Laboratory Results Laboratory Tests Test 08/04/17 14:55 08/05/17 04:25 08/05/17 05:40 White Blood Count 10.4 TH/MM3 7.9 TH/MM3 Red Blood Count 3.41 MIL/MM3 3.25 MIL/MM3 Hemoglobin 10.8 GM/DL 10.5 GM/DL Hematocrit 32.7 % 31.0 % Mean Corpuscular Volume 95.8 FL 95.6 FL Mean Corpuscular Hemoglobin 31.6 PG 32.4 PG Mean Corpuscular Hemoglobin Concent 33.0 % 33.9 % Red Cell Distribution Width 14.4 % 13.7 % Platelet Count 272 TH/MM3 236 TH/MM3 Mean Platelet Volume 7.5 FL 7.6 FL Neutrophils (%) (Auto) 68.0 % 65.9 % Lymphocytes (%) (Auto) 19.4 % 20.5 % Monocytes (%) (Auto) 9.5 % 10.3 % Eosinophils (%) (Auto) 2.7 % 2.6 % Basophils (%) (Auto) 0.4 % 0.7 % Neutrophils # (Auto) 7.1 TH/MM3 5.2 TH/MM3 Lymphocytes # (Auto) 2.0 TH/MM3 1.6 TH/MM3 Monocytes # (Auto) 1.0 TH/MM3 0.8 TH/MM3 Eosinophils # (Auto) 0.3 TH/MM3 0.2 TH/MM3 Basophils # (Auto) 0.0 TH/MM3 0.1 TH/MM3 CBC Comment DIFF FINAL DIFF FINAL Differential Comment Urine pH 7.0 6.5 Blood Urea Nitrogen 15 MG/DL 14 MG/DL Creatinine 0.73 MG/DL 0.65 MG/DL Random Glucose 135 MG/DL 107 MG/DL Total Protein 6.7 GM/DL 6.5 GM/DL Albumin 3.0 GM/DL 3.0 GM/DL Calcium Level 8.5 MG/DL 8.8 MG/DL Alkaline Phosphatase 112 U/L 112 U/L Aspartate Amino Transf (AST/SGOT) 40 U/L 37 U/L Alanine Aminotransferase (ALT/SGPT) 57 U/L 60 U/L Total Bilirubin 0.2 MG/DL 0.3 MG/DL Sodium Level 142 MEQ/L 143 MEQ/L Potassium Level 3.8 MEQ/L 4.0 MEQ/L Chloride Level 106 MEQ/L 105 MEQ/L Carbon Dioxide Level 30.7 MEQ/L 30.3 MEQ/L Anion Gap 5 MEQ/L 8 MEQ/L Estimat Glomerular Filtration Rate 81 ML/MIN 92 ML/MIN Hepatitis B Surface Antigen NONREACTIVE Hepatitis B Surface Antibody LESS THAN 3.1 mIU/mL Administered Medications Medications (Trade) Dose Ordered Sig/Thaddeus Route PRN Reason Start Time Stop Time Status Last Admin Dose Admin Senna/Docusate Sodium (Maddy-Colace) 1 tab BID PO 07/15/17 09:00 08/05/17 09:11 Magnesium Hydroxide (Milk Of Magnesia Liq) 30 ml Q12H PRN PO Mild constipation 07/14/17 22:15 08/01/17 09:37 Sennosides (Senokot) 17.2 mg Q12H PRN PO Moderate constipation 07/14/17 22:15 07/31/17 22:58 Lactulose (Lactulose Liq) 30 ml DAILY PRN PO SEVERE CONSITIPATION/ IF PO 07/14/17 22:15 08/02/17 09:39 Albuterol Sulfate (Albuterol Neb) 2.5 mg Q4HR NEB PRN NEB sob/wheezing 07/14/17 22:30 07/14/17 23:41 Allopurinol (Zyloprim) 100 mg BID PO 07/15/17 09:00 08/05/17 09:12 Atorvastatin Calcium (Lipitor) 40 mg HS PO 07/15/17 21:00 08/04/17 20:46 Citalopram Hydrobromide (CeleXA) 20 mg DAILY PO 07/15/17 09:00 08/05/17 09:12 Levothyroxine Sodium (Synthroid) 150 mcg DAILY@0700 PO 07/15/17 07:00 08/05/17 06:25 Quetiapine Fumarate (SEROquel) 25 mg HS PO 07/15/17 21:00 08/04/17 20:46 Albuterol/ Ipratropium (Duoneb Neb) 1 ampule Q4HR NEB PRN INH SHORTNESS OF BREATH 07/16/17 13:30 07/20/17 20:13 Chlorhexidine Gluconate (Peridex 0.12% Liq) 15 ml BID@08,20 MT 07/16/17 20:00 08/01/17 20:00 Famotidine (Pepcid) 20 mg BID PO 07/16/17 21:00 08/05/17 09:12 Chlorhexidine Gluconate (Chlorhexidine 2% Cloth) 3 pack Taper DAILY@04 TOP 07/17/17 04:00 07/13/18 03:59 07/29/17 04:00 Heparin Sodium (Porcine) (Heparin Central Flush) See Protocol DAILY IV FLUSH 07/17/17 09:00 08/05/17 09:12 Heparin Sodium (Porcine) (Heparin Central Flush) See Protocol UNSCH PRN IV FLUSH SEE PROTOCOL TABLE 07/16/17 19:30 07/31/17 22:59 Sodium Chloride (NS Flush) See Protocol UNSCH PRN IV FLUSH FLUSH AFTER USING IV ACCESS 07/16/17 19:30 08/04/17 09:47 Docusate Sodium (Colace) 100 mg BID PO 07/17/17 21:00 08/05/17 09:12 Ondansetron HCl (Zofran Inj) 4 mg Q6H PRN IV PUSH NAUSEA OR VOMITING 07/17/17 10:45 08/03/17 15:04 Acetaminophen/ Hydrocodone Bitart (Hastings 10-325 Mg) 1 tab Q4H PRN PO PAIN SCALE 1 TO 5 07/17/17 11:45 07/30/17 04:36 Acetaminophen/ Hydrocodone Bitart (Hastings 10-325 Mg) 2 tab Q4H PRN PO PAIN SCALE 6 TO 10 07/17/17 11:45 07/24/17 15:43 Morphine Sulfate (Morphine Inj) 4 mg Q2H PRN IV PUSH PAIN SCALE 7 TO 10 07/17/17 11:45 07/20/17 09:44 Phenytoin (Dilantin) 100 mg Q8HR PO 07/22/17 14:00 Future Hold 07/25/17 13:35 Ferrous Sulfate (Ferrous Sulfate) 325 mg DAILY PO 07/24/17 09:00 08/04/17 09:46 Dexamethasone (Decadron) 4 mg Q6HR PO 08/01/17 18:00 08/05/17 06:25 Levetriacetam (Keppra) 1,000 mg Q12HR PO 08/02/17 21:00 08/05/17 09:12 Phenytoin (Dilantin) 100 mg Q8HR PO 08/02/17 14:00 08/05/17 06:27 Sodium Bicarbonate 100 meq/Dextrose 1,100 ml @ 150 mls/hr Q7H20M IV 08/05/17 09:00 08/05/17 12:59 08/05/17 09:00 Objective Remarks GENERAL: Older female, resting in bed in no obvious distress SKIN: Warm and dry. HEAD: Normocephalic. EYES: No injection or drainage. NECK: Supple, trachea midline. CARDIOVASCULAR: Regular rate and rhythm RESPIRATORY: Clear posteriorly. Breathing unlabored at rest. GASTROINTESTINAL: Abdomen soft, non-tender, nondistended. EXTREMITIES: No cyanosis NEUROLOGICAL: Awake and alert. Right sided facial droop. Right sided weakness. 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 received 6 cycles of R-CHOP under the direction of Dr. Alves at [facility] in [place] (was in remission) --obtain CT C.A.P, bone marrow biopsy --LP flow cytometry and cytology --consult ophthalmology for eye exam. --HIV test. --Treatment would depend on location and full extent of disease. If tumor is isolated to the CSF and no other sites of disease, would treat with high-dose methotrexate as well as rituximab. If tumor is found in other sites of the body , would have more aggressive systemic therapy if the patient is able to tolerate. 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 Plan 1. 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 Will begin once urine pH at least 7. I discussed with the nurses to get results of thyroid biopsy via pathology. This was done at the [facility] with Dr. Alves. We will also give Rituxan later today. 24 hours after the start of methotrexate, we will begin rescue treatment with leucovorin and continue until the methotrexate concentration in the blood is less than 0.1 mol/L. This will be checked once daily. Continue steroids. Attending Statement The exam, history, and the medical decision-making described in the above note were completed with the assistance of the mid-level provider. I reviewed and agree with the findings presented. I attest that I had a [id number] encounter with the patient on the same day, and personally performed and documented my assessment and findings in the medical record. 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 Will plan to treat with rituimab and methotrexate. Urine alkalinization. Will obtain reports from past thyroid biosy. Problem Qualifiers (1) B-cell lymphoma: Qualified Codes: C85.10 - Unspecified B-cell lymphoma, unspecified site Sho Reaves August 05, 2017 10:11 Evy Melendez MD August 06, 2017 08:10
[2017-08-05] MEDS ORDERED: ACETAMINOPHEN 325 MG TAB PO ONE (15:00)
[2017-08-05] MEDS ORDERED: diphenhydrAMINE HCL 50 MG/ML VIAL IV ONE (15:00)
[2017-08-05] MEDS ORDERED: SODIUM CHLORID 0.9% IV ONE (16:00)
[2017-08-05] MEDS ORDERED: SODIUM CHLOR 0.9% 250 ML INJ 250 ML IV ONE (16:00)
[2017-08-05] MEDS ORDERED: RITUXIMAB IV ONE (16:00)
[2017-08-05] MEDS ORDERED: MEPERIDINE HCL 25 MG/ML VIAL IV ONE (19:15)
[2017-08-05] MEDS: QUEtiapine FUMARATE 25 MG TAB PO SCH (21:37)
[2017-08-05] MEDS: ATORVASTATIN 40 MG TAB PO SCH (21:37)
[2017-08-06] VITALS (10 sets, daily range): BP systolic 106–127; BP diastolic 56–74; PULSE 48–111; RESP 16–48; TEMP 98.1–100.5; O2SAT 95–98
[2017-08-06] MEDS: CHLORHEXIDINE GLUCONATE 2 % 1 PACK (2 CLOTHS) TOP SCH (04:00)
[2017-08-06] MEDS: LEVOTHYROXINE SODIUM 150 MCG TAB PO SCH (06:17)
[2017-08-06] MEDS: PHENYTOIN SODIUM 100 MG CAP PO SCH ×3 (06:18→20:53)
[2017-08-06] MEDS: DEXAMETHASONE 4 MG TAB PO SCH ×4 (06:18→23:54)
[2017-08-06 06:46] LABS: AUTOMATED NEUTROPHIL # 6.8 TH/MM3 (1.8-7.7); BASOPHIL % 0.4 % (0.0-2.0); EOSINOPHIL # 0.1 TH/MM3 (0-0.4); EOSINOPHIL % 1.5 % (0.0-4.0); HEMOGLOBIN 10.2 GM/DL (11.6-15.3); LYMPH % 9.3 % (9.0-44.0); LYMPHOCYTE # 0.8 TH/MM3 (1.0-4.8); MEAN CELL VOLUME 96.2 FL (80.0-100.0); MEAN CORPUSCULAR HEMOGLOBIN 32.8 PG (27.0-34.0); MEAN CORPUSCULAR HGB CONC 34.1 % (32.0-36.0); MEAN PLATELET VOLUME 7.7 FL (7.0-11.0); MONO % 7.7 % (0.0-8.0); MONOCYTE # 0.6 TH/MM3 (0-0.9); NEUT % 81.1 % (16.0-70.0); PLATELET COUNT 232 TH/MM3 (150-450); RED BLOOD COUNT 3.11 MIL/MM3 (4.00-5.30); WHITE BLOOD COUNT 8.4 TH/MM3 (4.0-11.0)
[2017-08-06 06:59] LABS: ALBUMIN 2.9 GM/DL (3.4-5.0); ALT (GPT) 62 U/L (10-53); AST (GOT) 47 U/L (15-37); BLOOD UREA NITROGEN 9 MG/DL (7-18); CALCIUM 8.4 MG/DL (8.5-10.1); CHLORIDE 108 MEQ/L (98-107); CREATININE 0.63 MG/DL (0.50-1.00); GLOMERULAR FILTRATION RATE 95 ML/MIN (>89); GLUCOSE,RANDOM 97 MG/DL (74-106); SODIUM (NA) 145 MEQ/L (136-145)
[2017-08-06 07:01] LABS: ALKALINE PHOSPHATASE 106 U/L (45-117); TOTAL BILIRUBIN ADULT 0.2 MG/DL (0.2-1.0); TOTAL PROTEIN 6.4 GM/DL (6.4-8.2)
[2017-08-06] MEDS: CHLORHEXIDINE 0.12% (ORAL KIT) 15 ML CUP MT SCH ×2 (08:00→20:00)
--- NOTE | 2017-08-06 08:04 | HHI.PR ---
Subjective Remarks The patient and family very pleased today is patient is improving. Says speech is more clear today. No new motor deficit. Started chemo tolerating well. No nausea vomiting. No fever or chills. Eating fairly well. Objective Vitals Vital Signs Date Time Temp Pulse Resp B/P (MAP) Pulse Ox O2 Delivery O2 Flow Rate FiO2 08/06/17 04:48 98.1 54 16 117/72 (87) 97 08/06/17 00:06 63 08/06/17 00:03 98.8 67 18 106/65 (79) 95 08/05/17 21:39 98.3 65 16 115/69 (84) 95 08/05/17 21:35 Nasal Cannula 2.00 21 08/05/17 20:18 99.9 72 16 90/56 (67) 96 08/05/17 20:08 16 08/05/17 20:05 69 08/05/17 18:39 99.1 65 20 154/83 (106) 99 08/05/17 18:02 99.3 57 20 102/65 (77) 99 08/05/17 17:32 98.7 54 20 111/60 (77) 99 08/05/17 17:19 99.3 54 18 104/65 (78) 08/05/17 16:59 100.0 54 18 103/70 (81) 98 08/05/17 16:00 54 08/05/17 12:00 60 08/05/17 12:00 97.5 61 18 107/48 (67) 99 08/05/17 08:58 98.0 61 18 150/116 (127) 99 118/64 (82) I/O 08/05/17 08/05/17 08/05/17 08/06/17 08/06/17 08/06/17 07:00 15:00 23:00 07:00 15:00 23:00 Intake Total 700 ml 2405 ml Output Total 100 ml 2425 ml 400 ml Balance -100 ml 700 ml -20 ml -400 ml Intake Oral 1440 ml IV Total 700 ml 965 ml Output Urine Total 100 ml 2425 ml 400 ml Stool Total 0 ml # Voids 3 2 Result Diagram: 08/06/1715 08/06/17 0615 Imaging Last Impressions Thyroid Ultrasound 07/30/17 0000 Signed Impressions: Service Date/Time: July 08:47 - CONCLUSION: 1. Diffusely heterogeneous multinodular thyroid gland. 2. 1.7 cm solid nodule in the inferior right lobe and 2 mixed nodules in the mid and inferior left pole meet criteria for fine needle aspiration. Frankie Dao MD Bone Biopsy CT 07/28/17 0000 Signed Impressions: Service Date/Time: Friday, July 28, 2017 13:46 - CONCLUSION: 1. Uncomplicated CT guided bone marrow aspirate. 2. Uncomplicated CT guided bone marrow biopsy. Israel Garvin MD Lumbar Puncture Fluoroscopy 07/27/17 0000 Signed Impressions: Service Date/Time: Thursday, July 27, 2017 15:37 - CONCLUSION: Uncomplicated fluoroscopically guided lumbar puncture with pressures as above. Kwasi Wilkins MD Chest CT 07/26/17 0000 Signed Impressions: Service Date/Time: Thursday, July 27, 2017 15:56 - CONCLUSION: 1. Atelectasis at the lung bases but no lung mass or adenopathy. No effusions. 2. Numerous bilateral thyroid nodules measuring up to about 1.5 cm in diameter. See abdomen CT for findings below the diaphragm. Job Barrera MD Abdomen/Pelvis CT 07/26/17 0000 Signed Impressions: Service Date/Time: Thursday, July 27, 2017 15:56 - CONCLUSION: 1. No acute findings abdomen pelvic CT. No definite evidence for metastatic disease. 2.5 cm likely right adrenal adenoma. 2. Mild fatty liver. Job Barrera MD Head CT 07/25/17 0000 Signed Impressions: Service Date/Time: Tuesday, July 25, 2017 14:37 - CONCLUSION: Persistent 3.2 cm mass seen in the left basal ganglia/caudate region. This appears more prominent. This demonstrates increased density which could represent some degree of hemorrhage. Some increased density was present on the prior postoperative CT examination. The previously seen air has resolved. There continues to be vasogenic edema and focal left to right midline shift. Israel Davis MD Chest X-Ray 07/16/17 1430 Signed Impressions: Service Date/Time: June 18:32 - CONCLUSION: Endotracheal tube tip is at the grupo. Slight retraction suggested. Israel Ruelas MD Brain MRI 07/15/17 0000 Signed Impressions: Service Date/Time: Saturday, July 15, 2017 15:42 - CONCLUSION: Left basal ganglia mass with moderate associated vasogenic edema. Mild-moderate hemispheric mass effect. Serpiginous enhancement in the contralateral right mid to high convexity frontal region. Israel Ruelas MD Objective Remarks GENERAL: Awake and alert only speaks Burmese-daughter translating-patient has been deemed to be not competent to make her medical decisions per psychiatry SKIN: Warm and dry. HEAD: Atraumatic. Normocephalic. EYES: Pupils equal and round. No scleral icterus. No injection or drainage. Extraocular muscles intact ENT: No nasal bleeding or discharge. Mucous membranes pink and moist. Tongue is midline NECK: Trachea midline. No JVD. Supple CARDIOVASCULAR: Regular rate and rhythm. S1-S2 no S3 or S4 no heave or thrill or rub or gallop RESPIRATORY: No accessory muscle use. Clear to auscultation. Breath sounds equal bilaterally. GASTROINTESTINAL: Abdomen soft, non-tender, nondistended. Hepatic and splenic margins not palpable. MUSCULOSKELETAL: Extremities without clubbing, cyanosis, or edema. No obvious deformities. NEUROLOGICAL: Awake and alert. No obvious cranial nerve deficits. Motor grossly within normal limits. Five out of 5 muscle strength in the arms and legs. Normal speech. Procedures Date of Surgery: Jul 17, 2017 Preoperative Diagnosis: Left basal ganglia brain mass Postoperative Diagnosis: Left basal ganglia SENIOR MANAGEMENT CONSULTANT lymphoma Procedure: Stereotactic biopsy of Left basal ganglia brain mass Anesthesia: general endotracheal Surgeon: Miguel Sutton Critical Care Specialist(s): Eva Smith Operation and Findings: INDICATIONS FOR THE PROCEDURE Ms Sun is a 61 year-old female who presented with neurological findings of right sided weakness and was found to have left basal ganglia enhancing mass. The lesions had abnormal signal intensity and and characteristics consistent with a possible neoplastic, inflammatory, or infectious process. A stereotactic biopsy of the lesions was indicated. The [id number] details of the procedure, its indications, alternatives, risks and potential complications were fully discussed with the patient. The patient fully understood. All questions were answered. No guarantees were given. The patient voiced requesting the procedure and provided informed consents. The patient was offered the alternative of not having aggressive management. DETAILS OF THE SURGICAL PROCEDURE Preoperative planning Prior to the surgery the patient underwent an MRI of the brain according to the stereotactic protocol. The information from the MRI scan was transferred to the operating room via the hospital network and the preoperative planning of the lesion was made. A julia was made at the patients operative site according to the hospital policy. Surgical positioning The patient was then brought to the operating room. After induction of general anesthesia endotracheal intubation was performed. Bkilateral carlos hose and sequential compression devices were placed and kept throughout the procedure. The patient was positioned supine on a 3080 table over a soft mattress. All pressure points were carefully padded with an egg crate mattress. The eyes were tapped shut after ointment was applied by the anesthesiologist to prevent corneal abrasion. A Shannon hugger was placed over the exposed lower body to maintain control of the core body temperature. The head was held in rigid fixation using the Bravo cigar head perforator. Intraoperative registration The rigid body was attached to the Bravo headholder. Intraoperative registration was then performed with the BrainMobilyTrip. The lesion was located in the three planes, sagittal, axial and coronal. An entry point was selected in the scalp. Surgical Approach and stereotactic biopsy The skin was prepped and draped in the usual sterile fashion. A linear incision in the left frontal region selected by the planning was outlined. The area was infiltrated with 1% lidocaine with epinephrine 1:100,000 dilution. A skin incision was made with a #10 blade. Small subgaleal bleeders were controlled with a bipolar a small self-retaining retractor was placed in the incision. The fascia and muscle were incised with a Bovie and retracted at each side. The Midas Freddy was brought into the field and a bur hole was made with an AM-8 drill bit. The duramatter was coagulated with a bipolar and opening increased for pressure and a very small corticotomy performed. At this point of the procedure the stereotactic biopsy arm was brought into the field and secured to the cigar head perforator. The strategic sourcing specialist was brought into the field, and the trajectory on the biopsy arm was created following the previously selected trajectory. Then, a stereotactic needle was carefully inserted into the brain at the center of the lesion and by gentle aspiration two initial biopsies were obtained, one of which was sent to the lab for frozen section, while the second kept for permanent histological annalysis. Meanwhile, additional specimens were obtained for permanent histologic analysis. At this point in the procedure , after waiting for awhile, the frozen section was called in and reported as lymphoma. The biopsy needle was carefully removed and the stereotactic device was removed. The incision was irrigated with a large amount of saline. A piece of Gelfoam was placed over the surface of the brain and a bur hole cover was placed. The incision was closed in layers. 3-0 Vicryl with interrupted sutures were used to close the fascial layers and galea. The skin was closed with chip. A sterile dressing was applied. At the end of the procedure the sponge, needle and instrument counts were all correct. Estimated blood loss was minimal. No blood transfusion was given. The patient received preoperative prophylactic antibiotics. No intraoperative complications occurred. The patient was transferred to the recovery room in stable condition. 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 Plan for chemo hem onc ff/ However patient can be transferred back to [facility] to resume chemo there. Hem/onc will get in touch with oncologist at [facility]. Continue working with PT. 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 with vasogenic edema and midline shift status post biopsy Continue steroids Continue to follow clinically Neurology following Hypothyroidism, chronic Continue supplements Follows as outpatient Hypertension Continue baseline treatment Follow blood pressures Adjust treatments as needed Asthma No exacerbation Breathing treatments as needed H/o ischemic CVA with possible seizure activity at the time of the CVA - no seizures since and does not take AEDs Monitor for any seizure activity Continue Keppra PO Cerebyx 100mg Q8 DCd and change to phenytoin PO continue Hyperlipidemia Continue present treatment Follow as an outpatient Bipolar disorder No change to baseline treatments Obstructive sleep apnea CPAP Generalize physical deficit May be contributory by brain edema Continue physical therapy DVT prophylaxis Bleed risk is present SCDs DC plan Had bmbx . Plan for chemo per hem/onc Plan to DC Home with home PT when cleared by hem/onc However patient need chemo continue chemo here as there is no oncology chemo at [place] Mia Elizalde MD August 06, 2017 08:04
--- NOTE | 2017-08-06 10:02 | PD.ONC.PN ---
Subjective Subjective Remarks Afebrile overnight. Patient resting in bed in nad. Daughter at bedside. Had rigors with Rituxan last night, then improved after demerol and slowing of infusion. Objective Data Date Time Temp Pulse Resp B/P (MAP) Pulse Ox O2 Delivery O2 Flow Rate FiO2 08/06/17 08:00 98.6 48 48 111/68 (82) 98 08/06/17 08:00 98 Nasal Cannula 2.00 08/06/17 04:48 98.1 54 16 117/72 (87) 97 08/06/17 00:06 63 08/06/17 00:03 98.8 67 18 106/65 (79) 95 08/05/17 21:39 98.3 65 16 115/69 (84) 95 08/05/17 21:35 Nasal Cannula 2.00 21 08/05/17 20:18 99.9 72 16 90/56 (67) 96 08/05/17 20:08 16 08/05/17 20:05 69 08/05/17 18:39 99.1 65 20 154/83 (106) 99 08/05/17 18:02 99.3 57 20 102/65 (77) 99 08/05/17 17:32 98.7 54 20 111/60 (77) 99 08/05/17 17:19 99.3 54 18 104/65 (78) 08/05/17 16:59 100.0 54 18 103/70 (81) 98 08/05/17 16:00 54 08/05/17 12:00 60 08/05/17 12:00 97.5 61 18 107/48 (67) 99 08/06/17 08/06/17 08/06/17 07:00 15:00 23:00 Output Total 400 ml Balance -400 ml Result Diagram: 08/06/1715 08/06/17614 Laboratory Results Laboratory Tests Test 08/05/17 11:00 08/05/17 11:15 08/06/17 06:15 Urine pH 8.5 HIV (1&2) Ab and P24 Ag, 4th Gener NONREACTIVE White Blood Count 8.4 TH/MM3 Red Blood Count 3.11 MIL/MM3 Hemoglobin 10.2 GM/DL Hematocrit 30.0 % Mean Corpuscular Volume 96.2 FL Mean Corpuscular Hemoglobin 32.8 PG Mean Corpuscular Hemoglobin Concent 34.1 % Red Cell Distribution Width 14.0 % Platelet Count 232 TH/MM3 Mean Platelet Volume 7.7 FL Neutrophils (%) (Auto) 81.1 % Lymphocytes (%) (Auto) 9.3 % Monocytes (%) (Auto) 7.7 % Eosinophils (%) (Auto) 1.5 % Basophils (%) (Auto) 0.4 % Neutrophils # (Auto) 6.8 TH/MM3 Lymphocytes # (Auto) 0.8 TH/MM3 Monocytes # (Auto) 0.6 TH/MM3 Eosinophils # (Auto) 0.1 TH/MM3 Basophils # (Auto) 0.0 TH/MM3 CBC Comment DIFF FINAL Differential Comment Blood Urea Nitrogen 9 MG/DL Creatinine 0.63 MG/DL Random Glucose 97 MG/DL Total Protein 6.4 GM/DL Albumin 2.9 GM/DL Calcium Level 8.4 MG/DL Alkaline Phosphatase 106 U/L Aspartate Amino Transf (AST/SGOT) 47 U/L Alanine Aminotransferase (ALT/SGPT) 62 U/L Total Bilirubin 0.2 MG/DL Sodium Level 145 MEQ/L Potassium Level 3.9 MEQ/L Chloride Level 108 MEQ/L Carbon Dioxide Level 33.0 MEQ/L Anion Gap 4 MEQ/L Estimat Glomerular Filtration Rate 95 ML/MIN Administered Medications Medications (Trade) Dose Ordered Sig/Thaddeus Route PRN Reason Start Time Stop Time Status Last Admin Dose Admin Senna/Docusate Sodium (Maddy-Colace) 1 tab BID PO 07/15/17 09:00 08/05/17 21:37 Magnesium Hydroxide (Milk Of Magnesia Liq) 30 ml Q12H PRN PO Mild constipation 07/14/17 22:15 08/01/17 09:37 Sennosides (Senokot) 17.2 mg Q12H PRN PO Moderate constipation 07/14/17 22:15 07/31/17 22:58 Lactulose (Lactulose Liq) 30 ml DAILY PRN PO SEVERE CONSITIPATION/ IF PO 07/14/17 22:15 08/02/17 09:39 Albuterol Sulfate (Albuterol Neb) 2.5 mg Q4HR NEB PRN NEB sob/wheezing 07/14/17 22:30 07/14/17 23:41 Allopurinol (Zyloprim) 100 mg BID PO 07/15/17 09:00 08/05/17 21:37 Atorvastatin Calcium (Lipitor) 40 mg HS PO 07/15/17 21:00 08/05/17 21:37 Citalopram Hydrobromide (CeleXA) 20 mg DAILY PO 07/15/17 09:00 08/05/17 09:12 Levothyroxine Sodium (Synthroid) 150 mcg DAILY@0700 PO 07/15/17 07:00 08/06/17 06:17 Quetiapine Fumarate (SEROquel) 25 mg HS PO 07/15/17 21:00 08/05/17 21:37 Albuterol/ Ipratropium (Duoneb Neb) 1 ampule Q4HR NEB PRN INH SHORTNESS OF BREATH 07/16/17 13:30 07/20/17 20:13 Chlorhexidine Gluconate (Peridex 0.12% Liq) 15 ml BID@08,20 MT 07/16/17 20:00 08/01/17 20:00 Famotidine (Pepcid) 20 mg BID PO 07/16/17 21:00 08/05/17 21:36 Chlorhexidine Gluconate (Chlorhexidine 2% Cloth) 3 pack Taper DAILY@04 TOP 07/17/17 04:00 07/13/18 03:59 07/29/17 04:00 Heparin Sodium (Porcine) (Heparin Central Flush) See Protocol DAILY IV FLUSH 07/17/17 09:00 08/05/17 09:12 Heparin Sodium (Porcine) (Heparin Central Flush) See Protocol UNSCH PRN IV FLUSH SEE PROTOCOL TABLE 07/16/17 19:30 07/31/17 22:59 Sodium Chloride (NS Flush) See Protocol UNSCH PRN IV FLUSH FLUSH AFTER USING IV ACCESS 07/16/17 19:30 08/04/17 09:47 Docusate Sodium (Colace) 100 mg BID PO 07/17/17 21:00 08/05/17 21:37 Ondansetron HCl (Zofran Inj) 4 mg Q6H PRN IV PUSH NAUSEA OR VOMITING 07/17/17 10:45 08/03/17 15:04 Acetaminophen/ Hydrocodone Bitart ([place] 10-325 Mg) 1 tab Q4H PRN PO PAIN SCALE 1 TO 5 07/17/17 11:45 07/30/17 04:36 Acetaminophen/ Hydrocodone Bitart ([place] 10-325 Mg) 2 tab Q4H PRN PO PAIN SCALE 6 TO 10 07/17/17 11:45 07/24/17 15:43 Morphine Sulfate (Morphine Inj) 4 mg Q2H PRN IV PUSH PAIN SCALE 7 TO 10 07/17/17 11:45 07/20/17 09:44 Phenytoin (Dilantin) 100 mg Q8HR PO 07/22/17 14:00 Future Hold 07/25/17 13:35 Ferrous Sulfate (Ferrous Sulfate) 325 mg DAILY PO 07/24/17 09:00 08/05/17 09:00 Dexamethasone (Decadron) 4 mg Q6HR PO 08/01/17 18:00 08/06/17 06:18 Levetriacetam (Keppra) 1,000 mg Q12HR PO 08/02/17 21:00 08/05/17 21:36 Phenytoin (Dilantin) 100 mg Q8HR PO 08/02/17 14:00 08/06/17 06:18 Objective Remarks GENERAL: Middle aged female, lying in bed resting. SKIN: Warm and dry. HEAD: Normocephalic. EYES: No injection or drainage. NECK: Supple, trachea midline. CARDIOVASCULAR: Regular rate and rhythm RESPIRATORY: Breath sounds equal bilaterally. No accessory muscle use. GASTROINTESTINAL: Abdomen soft, non-tender, nondistended. EXTREMITIES: No cyanosis NEUROLOGICAL: awake and alert. normal speech. moving extremities. 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 received 6 cycles of R-CHOP under the direction of Dr. Alevs at [facility] in [place] (was in remission) Assessment 61y/o female with CONTRACT ACCOUNTANT lymphoma. Plan 1. Primary CONTRACT ACCOUNTANT lymphoma: finish Rituxan this AM, then start MTX 8000mg/m2 this afternoon. Continue Alkalization of urine. monitor urine pH 2. monitor CBC, CMP Attending Statement The exam, history, and the medical decision-making described in the above note were completed with the assistance of the mid-level provider. I reviewed and agree with the findings presented. I attest that I had a [id number] encounter with the patient on the same day, and personally performed and documented my assessment and findings in the medical record. 61 yoF with CONTRACT ACCOUNTANT relapse of lymphoma. No evidence of systemic disease. rituximab, HD methotrexate. Labs reviewed. Daughters at bedside. Yin Still August 06, 2017 10:02 Evy Melendez MD August 07, 2017 10:41
[2017-08-06] MEDS: ADULT - PICC FLUSH PRN FOR HEPARIN ALLERGY OR HIT DIAGNOSIS IV FLUSH (10:29)
[2017-08-06] MEDS: levETIRAcetam 500 MG TAB PO SCH ×2 (10:30→20:52)
[2017-08-06] MEDS: FERROUS SULFATE 325 MG (65 MG ELEMENTAL IRON) TAB PO SCH (10:30)
[2017-08-06] MEDS: DOCUSATE SODIUM 50 MG/SENNA 8.6 MG TAB PO SCH ×2 (10:30→20:52)
[2017-08-06] MEDS: FAMOTIDINE 20 MG TAB PO SCH ×2 (10:30→20:54)
[2017-08-06] MEDS: CITALOPRAM HYDROBROMIDE 20 MG TAB PO SCH (10:30)
[2017-08-06] MEDS: ALLOPURINOL 100 MG TAB PO SCH ×2 (10:30→20:54)
[2017-08-06] MEDS: DOCUSATE SODIUM 100 MG CAP PO SCH ×2 (10:30→20:54)
[2017-08-06] MEDS: SODIUM BICARBONATE 8.4% INJ 100 MEQ in DEXTROSE 5% IN WATE 1000ML INJ 1,000 ML IV SCH ×2 (10:31)
[2017-08-06] MEDS: ATORVASTATIN 40 MG TAB PO SCH (20:53)
[2017-08-06] MEDS: QUEtiapine FUMARATE 25 MG TAB PO SCH (20:54)
[2017-08-07] VITALS (8 sets, daily range): BP systolic 92–141; BP diastolic 46–66; PULSE 52–67; RESP 18–20; TEMP 97.5–98.6; O2SAT 95–100
[2017-08-07] MEDS: ACETAMINOPHEN 325 MG TAB PO PRN (00:21)
[2017-08-07] MEDS: CHLORHEXIDINE GLUCONATE 2 % 1 PACK (2 CLOTHS) TOP SCH (04:00)
[2017-08-07] MEDS: DEXAMETHASONE 4 MG TAB PO SCH ×3 (05:44→18:38)
[2017-08-07] MEDS: PHENYTOIN SODIUM 100 MG CAP PO SCH ×3 (05:44→22:03)
[2017-08-07] MEDS: LEVOTHYROXINE SODIUM 150 MCG TAB PO SCH (05:50)
[2017-08-07] MEDS: CHLORHEXIDINE 0.12% (ORAL KIT) 15 ML CUP MT SCH ×2 (08:00→20:00)
[2017-08-07] MEDS: SODIUM BICARBONATE 8.4% INJ 100 MEQ in DEXTROSE 5% IN WATE 1000ML INJ 1,000 ML IV SCH ×6 (08:03→22:20)
[2017-08-07 10:12] LABS: AUTOMATED NEUTROPHIL # 4.5 TH/MM3 (1.8-7.7); BASOPHIL % 0.3 % (0.0-2.0); EOSINOPHIL # 0.2 TH/MM3 (0-0.4); EOSINOPHIL % 2.6 % (0.0-4.0); HEMATOCRIT 29.2 % (35.0-46.0); LYMPHOCYTE # 1.1 TH/MM3 (1.0-4.8); MEAN CELL VOLUME 95.8 FL (80.0-100.0); MEAN CORPUSCULAR HEMOGLOBIN 32.7 PG (27.0-34.0); MEAN CORPUSCULAR HGB CONC 34.2 % (32.0-36.0); MEAN PLATELET VOLUME 7.5 FL (7.0-11.0); MONO % 12.3 % (0.0-8.0); MONOCYTE # 0.8 TH/MM3 (0-0.9); NEUT % 68.8 % (16.0-70.0); PLATELET COUNT 224 TH/MM3 (150-450); RED BLOOD COUNT 3.05 MIL/MM3 (4.00-5.30); RED CELL DISTRIBUTION WIDTH 14.1 % (11.6-17.2); WHITE BLOOD COUNT 6.6 TH/MM3 (4.0-11.0)
[2017-08-07 10:28] LABS: ALBUMIN 2.9 GM/DL (3.4-5.0); AST (GOT) 45 U/L (15-37); BICARBONATE 31.9 MEQ/L (21.0-32.0); BLOOD UREA NITROGEN 9 MG/DL (7-18); CALCIUM 8.7 MG/DL (8.5-10.1); CHLORIDE 105 MEQ/L (98-107); CREATININE 0.63 MG/DL (0.50-1.00); GLOMERULAR FILTRATION RATE 95 ML/MIN (>89); GLUCOSE,RANDOM 108 MG/DL (74-106); SODIUM (NA) 142 MEQ/L (136-145)
[2017-08-07 10:29] LABS: ALT (GPT) 55 U/L (10-53)
[2017-08-07 10:31] LABS: ALKALINE PHOSPHATASE 98 U/L (45-117); TOTAL BILIRUBIN ADULT 0.2 MG/DL (0.2-1.0); TOTAL PROTEIN 6.5 GM/DL (6.4-8.2)
--- NOTE | 2017-08-07 10:47 | PD.ONC.PN ---
Subjective Subjective Remarks Tmax 100.5 overnight. Patient resting in bed in nad. No complaints. Daughters at bedside state they notice their mother has been much more active in the mornings, speaking more. Objective Data Date Time Temp Pulse Resp B/P (MAP) Pulse Ox O2 Delivery O2 Flow Rate FiO2 08/07/17 08:30 98.6 52 18 117/66 (83) 96 08/07/17 08:30 96 Nasal Cannula 2.00 08/07/17 05:38 98.6 54 18 110/58 (75) 96 08/06/17 23:57 99.0 58 18 111/57 (75) 95 08/06/17 20:48 100.5 58 18 127/73 (91) 98 08/06/17 19:00 96 2.00 08/06/17 17:00 97 Nasal Cannula 2.00 08/06/17 17:00 99.0 68 20 109/56 (73) 97 08/06/17 16:00 68 08/06/17 13:38 52 08/06/17 13:38 52 08/06/17 12:49 98.6 111 18 114/74 (87) 98 08/06/17 12:00 98 Blow By 2.00 08/07/17 08/07/17 08/07/17 07:00 15:00 23:00 Output Total 300 ml Balance -300 ml Result Diagram: 08/07/17 1000 08/07/17 1000 Laboratory Results Laboratory Tests Test 08/07/17 10:00 White Blood Count 6.6 TH/MM3 Red Blood Count 3.05 MIL/MM3 Hemoglobin 10.0 GM/DL Hematocrit 29.2 % Mean Corpuscular Volume 95.8 FL Mean Corpuscular Hemoglobin 32.7 PG Mean Corpuscular Hemoglobin Concent 34.2 % Red Cell Distribution Width 14.1 % Platelet Count 224 TH/MM3 Mean Platelet Volume 7.5 FL Neutrophils (%) (Auto) 68.8 % Lymphocytes (%) (Auto) 16.0 % Monocytes (%) (Auto) 12.3 % Eosinophils (%) (Auto) 2.6 % Basophils (%) (Auto) 0.3 % Neutrophils # (Auto) 4.5 TH/MM3 Lymphocytes # (Auto) 1.1 TH/MM3 Monocytes # (Auto) 0.8 TH/MM3 Eosinophils # (Auto) 0.2 TH/MM3 Basophils # (Auto) 0.0 TH/MM3 CBC Comment DIFF FINAL Differential Comment Blood Urea Nitrogen 9 MG/DL Creatinine 0.63 MG/DL Random Glucose 108 MG/DL Total Protein 6.5 GM/DL Albumin 2.9 GM/DL Calcium Level 8.7 MG/DL Alkaline Phosphatase 98 U/L Aspartate Amino Transf (AST/SGOT) 45 U/L Alanine Aminotransferase (ALT/SGPT) 55 U/L Total Bilirubin 0.2 MG/DL Sodium Level 142 MEQ/L Potassium Level 3.8 MEQ/L Chloride Level 105 MEQ/L Carbon Dioxide Level 31.9 MEQ/L Anion Gap 5 MEQ/L Estimat Glomerular Filtration Rate 95 ML/MIN Administered Medications Medications (Trade) Dose Ordered Sig/Thaddeus Route PRN Reason Start Time Stop Time Status Last Admin Dose Admin Senna/Docusate Sodium (Maddy-Colace) 1 tab BID PO 07/15/17 09:00 08/06/17 20:52 Magnesium Hydroxide (Milk Of Magnesia Liq) 30 ml Q12H PRN PO Mild constipation 07/14/17 22:15 08/01/17 09:37 Sennosides (Senokot) 17.2 mg Q12H PRN PO Moderate constipation 07/14/17 22:15 07/31/17 22:58 Lactulose (Lactulose Liq) 30 ml DAILY PRN PO SEVERE CONSITIPATION/ IF PO 07/14/17 22:15 08/02/17 09:39 Albuterol Sulfate (Albuterol Neb) 2.5 mg Q4HR NEB PRN NEB sob/wheezing 07/14/17 22:30 07/14/17 23:41 Allopurinol (Zyloprim) 100 mg BID PO 07/15/17 09:00 08/06/17 20:54 Atorvastatin Calcium (Lipitor) 40 mg HS PO 07/15/17 21:00 08/06/17 20:53 Citalopram Hydrobromide (CeleXA) 20 mg DAILY PO 07/15/17 09:00 08/06/17 10:30 Levothyroxine Sodium (Synthroid) 150 mcg DAILY@0700 PO 07/15/17 07:00 08/07/17 05:50 Quetiapine Fumarate (SEROquel) 25 mg HS PO 07/15/17 21:00 08/06/17 20:54 Albuterol/ Ipratropium (Duoneb Neb) 1 ampule Q4HR NEB PRN INH SHORTNESS OF BREATH 07/16/17 13:30 07/20/17 20:13 Chlorhexidine Gluconate (Peridex 0.12% Liq) 15 ml BID@08,20 MT 07/16/17 20:00 08/01/17 20:00 Famotidine (Pepcid) 20 mg BID PO 07/16/17 21:00 08/06/17 20:54 Chlorhexidine Gluconate (Chlorhexidine 2% Cloth) 3 pack Taper DAILY@04 TOP 07/17/17 04:00 07/13/18 03:59 07/29/17 04:00 Heparin Sodium (Porcine) (Heparin Central Flush) See Protocol DAILY IV FLUSH 07/17/17 09:00 08/06/17 10:29 Heparin Sodium (Porcine) (Heparin Central Flush) See Protocol UNSCH PRN IV FLUSH SEE PROTOCOL TABLE 07/16/17 19:30 07/31/17 22:59 Sodium Chloride (NS Flush) See Protocol UNSCH PRN IV FLUSH FLUSH AFTER USING IV ACCESS 07/16/17 19:30 08/06/17 10:29 Docusate Sodium (Colace) 100 mg BID PO 07/17/17 21:00 08/06/17 20:54 Ondansetron HCl (Zofran Inj) 4 mg Q6H PRN IV PUSH NAUSEA OR VOMITING 07/17/17 10:45 08/03/17 15:04 Acetaminophen/ Hydrocodone Bitart ([place] 10-325 Mg) 1 tab Q4H PRN PO PAIN SCALE 1 TO 5 07/17/17 11:45 07/30/17 04:36 Acetaminophen/ Hydrocodone Bitart ([place] 10-325 Mg) 2 tab Q4H PRN PO PAIN SCALE 6 TO 10 07/17/17 11:45 07/24/17 15:43 Morphine Sulfate (Morphine Inj) 4 mg Q2H PRN IV PUSH PAIN SCALE 7 TO 10 07/17/17 11:45 07/20/17 09:44 Acetaminophen (Tylenol) 650 mg Q4H PRN PO TEMPERATURE > 101.5 F 07/17/17 11:45 08/07/17 00:21 Phenytoin (Dilantin) 100 mg Q8HR PO 07/22/17 14:00 Future Hold 07/25/17 13:35 Ferrous Sulfate (Ferrous Sulfate) 325 mg DAILY PO 07/24/17 09:00 08/06/17 10:30 Dexamethasone (Decadron) 4 mg Q6HR PO 08/01/17 18:00 08/07/17 05:44 Levetriacetam (Keppra) 1,000 mg Q12HR PO 08/02/17 21:00 08/06/17 20:52 Phenytoin (Dilantin) 100 mg Q8HR PO 08/02/17 14:00 08/07/17 05:44 Sodium Bicarbonate 100 meq/Dextrose 1,100 ml @ 125 mls/hr Q8H48M IV 08/06/17 09:00 08/06/17 10:31 Objective Remarks GENERAL: Middle aged female, supine in bed in nad. SKIN: Warm and dry. HEAD: Normocephalic. EYES: No injection or drainage. NECK: Supple, trachea midline. CARDIOVASCULAR: Regular rate and rhythm RESPIRATORY: Breath sounds equal bilaterally. No accessory muscle use. GASTROINTESTINAL: Abdomen soft, non-tender, nondistended. EXTREMITIES: No cyanosis NEUROLOGICAL: awake, alert. right sided paresis. 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 received 6 cycles of R-CHOP under the direction of Dr. Alves at [facility] in [place] (was in remission) Assessment 61y/o female with TRANSIT DRIVER lymphoma. Plan 1. Primary TRANSIT DRIVER lymphoma: continue alkalization of urine. check urine pH TID. 2. give methotrexate today 3. check MTX level tomorrow, start Leucovorin tomorrow. 4. monitor urine output. Attending Statement The exam, history, and the medical decision-making described in the above note were completed with the assistance of the mid-level provider. I reviewed and agree with the findings presented. I attest that I had a [id number] encounter with the patient on the same day, and personally performed and documented my assessment and findings in the medical record. 61 yoF with TRANSIT DRIVER lymphoma. treatment with rituximab and HD methotrexate. Problem Qualifiers (1) B-cell lymphoma: Qualified Codes: C85.10 - Unspecified B-cell lymphoma, unspecified site Yin Still August 07, 2017 10:47 Evy Melendez MD August 07, 2017 18:11
[2017-08-07] MEDS ORDERED: MAGNESIUM HYDROXIDE SUSP 30 ML CUP PO ONE (12:30)
[2017-08-07] MEDS ORDERED: DOCUSATE SODIUM 50 MG/SENNA 8.6 MG TAB PO ONE (12:30)
--- NOTE | 2017-08-07 12:30 | HHI.PR ---
Subjective Remarks Patient interviewed using over the phone rn l and d, as well as daughter at bedside. Patient appears to deny any pain. Denies chest pain or shortness of breath. She does report a cough since coming out of the ICU. Denies nausea or vomiting. Denies abdominal pain. Objective Vital Signs Date Time Temp Pulse Resp B/P (MAP) Pulse Ox O2 Delivery O2 Flow Rate FiO2 08/07/17 08:30 98.6 52 18 117/66 (83) 96 08/07/17 08:30 96 Nasal Cannula 2.00 08/07/17 05:38 98.6 54 18 110/58 (75) 96 08/06/17 23:57 99.0 58 18 111/57 (75) 95 08/06/17 20:48 100.5 58 18 127/73 (91) 98 08/06/17 19:00 96 2.00 08/06/17 17:00 97 Nasal Cannula 2.00 08/06/17 17:00 99.0 68 20 109/56 (73) 97 08/06/17 16:00 68 08/06/17 13:38 52 08/06/17 13:38 52 08/06/17 12:49 98.6 111 18 114/74 (87) 98 I/O 08/06/17 08/06/17 08/06/17 08/07/17 08/07/17 08/07/17 07:00 15:00 23:00 07:00 15:00 23:00 Output Total 400 ml 400 ml 300 ml Balance -400 ml -400 ml -300 ml Output Urine Total 400 ml 400 ml 300 ml # Voids 2 2 Result Diagram: 08/07/17 1000 08/07/17 1000 Objective Remarks GENERAL: Patient sitting up in bed. Appears comfortable. Disoriented. SKIN: Warm and dry. HEAD: Normocephalic. EYES: No scleral icterus. No injection or drainage. NECK: Supple, trachea midline. No JVD. CARDIOVASCULAR: Regular rate and rhythm without murmurs, gallops, or rubs. RESPIRATORY: Breath sounds equal bilaterally. No accessory muscle use. GASTROINTESTINAL: Abdomen soft, non-tender, nondistended. MUSCULOSKELETAL: No cyanosis, or edema. BACK: Nontender without obvious deformity. No CVA tenderness. A/P Assessment and Plan === 5/11/18 //B-cell lymphoma with brain metastasis Continue chemotherapy with methotrexate, urine checks for pH as per hematology. Appreciate assistance. //Constipation. No bowel movement in 4 days. Laxatives ordered. //Fever 100.5 overnight. Family reports patient appears to have dysuria. Will check chest x-ray and urinalysis. 61-year-old female admitted secondary to encephalopathy found to be related to 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 -Plan for chemo hem onc ff/ However patient can be transferred back to [facility] to resume chemo there. Hem/onc will get in touch with oncologist at [facility]. unabvle to do chemo at [place] apparently Continue working with PT. 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 with vasogenic edema and midline shift status post biopsy Continue steroids Continue to follow clinically Neurology following //Hypothyroidism, chronic Continue supplements Follows as outpatient //Hypertension Continue baseline treatment Follow blood pressures Adjust treatments as needed //Asthma No exacerbation Breathing treatments as needed //H/o ischemic CVA with possible seizure activity at the time of the CVA - no seizures since and does not take AEDs Monitor for any seizure activity Continue Keppra PO Cerebyx 100mg Q8 DCd and change to phenytoin PO continue //Hyperlipidemia Continue present treatment Follow as an outpatient //Bipolar disorder No change to baseline treatments //Obstructive sleep apnea CPAP //Generalize physical deficit May be contributory by brain edema Continue physical therapy //DVT prophylaxis Bleed risk is present SCDs Discharge Planning Continues on chemotherapy per heme oncology. DC when cleared by oncology. No oncology at [place]. Iban Cobos MD August 07, 2017 12:30
--- NOTE | 2017-08-07 12:45 | RADRPT ---
EXAM DATE/TIME: 08/07/2017 13:21 [place] COMPARISON: CHEST SINGLE AP, July 16, 2017, 18:32. INDICATIONS : Evaluate diaphragm. Short of breath MEDICAL HISTORY : Hypothyroidism. Stroke. Hypercholesterolemia. Hypertension. Asthma. Sleep apnea. Dementia. SURGICAL HISTORY : Cholecystectomy. Kidney stent, removed. Biopsy os spine, pancreas, and liver. ENCOUNTER: Subsequent ACUITY: 1 month PAIN SCORE: Non-responsive. LOCATION: chest FINDINGS: There is some platelike areas of atelectasis in both lower lungs. The upper lung lewis are grossly c lear. No definite pleural effusions are demonstrated. The heart size is stable. The previously noted endotracheal tube and NG tube have been removed. There is a left-sided PICC line place. There is no e vidence of pneumothorax. The bony structures are stable. CONCLUSION: 1. Bibasilar areas of atelectasis. Skip Pelaez MD on August 07, 2017 at 12:42 Board Certified Radiologist. This report was verified electronically.
[2017-08-07] MEDS: CITALOPRAM HYDROBROMIDE 20 MG TAB PO SCH (13:12)
[2017-08-07] MEDS: FERROUS SULFATE 325 MG (65 MG ELEMENTAL IRON) TAB PO SCH (13:12)
[2017-08-07] MEDS: DOCUSATE SODIUM 100 MG CAP PO SCH ×2 (13:12→22:05)
[2017-08-07] MEDS: DOCUSATE SODIUM 50 MG/SENNA 8.6 MG TAB PO SCH ×2 (13:12→22:04)
[2017-08-07] MEDS: FAMOTIDINE 20 MG TAB PO SCH ×2 (13:12→22:04)
[2017-08-07] MEDS: ALLOPURINOL 100 MG TAB PO SCH ×2 (13:12→22:04)
[2017-08-07] MEDS: levETIRAcetam 500 MG TAB PO SCH ×2 (13:13→22:03)
[2017-08-07] MEDS ORDERED: GRANISETRON INJ 1 MG, DEXAMETHASONE INJ 20 MG in SODIUM CHLORIDE 0.9% INJ 50 ML IV ONE (14:30)
[2017-08-07] MEDS ORDERED: DEXTROSE 5% IV ONE ×2 (15:00)
[2017-08-07] MEDS ORDERED: WATE IV ONE ×2 (15:00)
[2017-08-07] MEDS ORDERED: METHOTREXATE IV ONE ×2 (15:00)
[2017-08-07 19:59] LABS: BILIRUBIN, URINE NEG (NEG); BLOOD, URINE NEG (NEG); GLUCOSE,URINE NEG (NEG); KETONE, URINE NEG (NEG); NITRITE,URINE NEG (NEG); PH, URINE 7.5 (5.0-8.5); SQUAMOUS EPITHELIAL CELL URINE 1 /hpf (0-5); URINE COLOR DARK-YELLOW (YELLW/STRAW); URINE LEUKOCYTE ESTERASE LARGE (NEG)
[2017-08-07] MEDS: QUEtiapine FUMARATE 25 MG TAB PO SCH (22:03)
[2017-08-07] MEDS: ATORVASTATIN 40 MG TAB PO SCH (22:04)
[2017-08-08] VITALS (11 sets, daily range): BP systolic 89–115; BP diastolic 46–67; PULSE 47–71; RESP 16–20; TEMP 97.3–99.2; O2SAT 96–100
[2017-08-08] MEDS: DEXAMETHASONE 4 MG TAB PO SCH ×5 (00:29→23:36)
[2017-08-08] MEDS: CHLORHEXIDINE GLUCONATE 2 % 1 PACK (2 CLOTHS) TOP SCH (04:00)
[2017-08-08] MEDS: PHENYTOIN SODIUM 100 MG CAP PO SCH ×3 (05:39→21:10)
[2017-08-08] MEDS: LEVOTHYROXINE SODIUM 150 MCG TAB PO SCH (05:41)
[2017-08-08 06:00] LABS: AUTOMATED NEUTROPHIL # 7.7 TH/MM3 (1.8-7.7); BASOPHIL % 0.4 % (0.0-2.0); EOSINOPHIL % 0.1 % (0.0-4.0); HEMATOCRIT 29.3 % (35.0-46.0); HEMOGLOBIN 9.9 GM/DL (11.6-15.3); LYMPH % 12.6 % (9.0-44.0); LYMPHOCYTE # 1.3 TH/MM3 (1.0-4.8); MEAN CELL VOLUME 94.5 FL (80.0-100.0); MEAN CORPUSCULAR HGB CONC 33.9 % (32.0-36.0); MONO % 9.4 % (0.0-8.0); MONOCYTE # 0.9 TH/MM3 (0-0.9); NEUT % 77.5 % (16.0-70.0); PLATELET COUNT 251 TH/MM3 (150-450); RED BLOOD COUNT 3.11 MIL/MM3 (4.00-5.30); RED CELL DISTRIBUTION WIDTH 13.9 % (11.6-17.2)
[2017-08-08 06:27] LABS: ALBUMIN 2.7 GM/DL (3.4-5.0); ALKALINE PHOSPHATASE 112 U/L (45-117); ALT (GPT) 174 U/L (10-53); AST (GOT) 158 U/L (15-37); BICARBONATE 35.7 MEQ/L (21.0-32.0); BLOOD UREA NITROGEN 13 MG/DL (7-18); CALCIUM 8.2 MG/DL (8.5-10.1); CHLORIDE 105 MEQ/L (98-107); CREATININE 0.69 MG/DL (0.50-1.00); GLOMERULAR FILTRATION RATE 86 ML/MIN (>89); GLUCOSE,RANDOM 124 MG/DL (74-106); SODIUM (NA) 145 MEQ/L (136-145); TOTAL BILIRUBIN ADULT 0.3 MG/DL (0.2-1.0); TOTAL PROTEIN 6.3 GM/DL (6.4-8.2)
[2017-08-08] MEDS: CHLORHEXIDINE 0.12% (ORAL KIT) 15 ML CUP MT SCH ×2 (08:00→20:00)
--- NOTE | 2017-08-08 09:01 | PD.ONC.PN ---
Subjective Subjective Remarks Afebrile overnight. Patient resting in bed in nad. tolerated methotrexate infusion yesterday. Objective Data Date Time Temp Pulse Resp B/P (MAP) Pulse Ox O2 Delivery O2 Flow Rate FiO2 08/08/17 07:00 47 08/08/17 05:32 98.3 55 16 101/55 (70) 96 08/08/17 00:21 97.3 53 16 100/56 (71) 98 08/08/17 00:05 51 08/07/17 22:18 98.3 53 18 106/55 (72) 100 08/07/17 20:06 53 08/07/17 20:00 98 Nasal Cannula 2.00 08/07/17 17:56 98.6 53 18 141/64 (89) 99 08/07/17 16:00 99 Nasal Cannula 2.00 08/07/17 16:00 53 08/07/17 14:00 97.5 67 20 119/57 (77) 95 08/07/17 12:00 98 Nasal Cannula 2.00 08/08/17 08/08/17 08/08/17 07:00 15:00 23:00 Intake Total 140 ml Output Total 852 ml Balance -712 ml Result Diagram: 08/08/17 0530 08/08/17 0530 Laboratory Results Laboratory Tests Test 08/07/17 10:00 08/07/17 18:00 08/07/17 21:36 08/08/17 05:30 White Blood Count 6.6 TH/MM3 10.0 TH/MM3 Red Blood Count 3.05 MIL/MM3 3.11 MIL/MM3 Hemoglobin 10.0 GM/DL 9.9 GM/DL Hematocrit 29.2 % 29.3 % Mean Corpuscular Volume 95.8 FL 94.5 FL Mean Corpuscular Hemoglobin 32.7 PG 32.0 PG Mean Corpuscular Hemoglobin Concent 34.2 % 33.9 % Red Cell Distribution Width 14.1 % 13.9 % Platelet Count 224 TH/MM3 251 TH/MM3 Mean Platelet Volume 7.5 FL 8.0 FL Neutrophils (%) (Auto) 68.8 % 77.5 % Lymphocytes (%) (Auto) 16.0 % 12.6 % Monocytes (%) (Auto) 12.3 % 9.4 % Eosinophils (%) (Auto) 2.6 % 0.1 % Basophils (%) (Auto) 0.3 % 0.4 % Neutrophils # (Auto) 4.5 TH/MM3 7.7 TH/MM3 Lymphocytes # (Auto) 1.1 TH/MM3 1.3 TH/MM3 Monocytes # (Auto) 0.8 TH/MM3 0.9 TH/MM3 Eosinophils # (Auto) 0.2 TH/MM3 0.0 TH/MM3 Basophils # (Auto) 0.0 TH/MM3 0.0 TH/MM3 CBC Comment DIFF FINAL DIFF FINAL Differential Comment Urine pH 8.0 7.5 8.0 Blood Urea Nitrogen 9 MG/DL 13 MG/DL Creatinine 0.63 MG/DL 0.69 MG/DL Random Glucose 108 MG/DL 124 MG/DL Total Protein 6.5 GM/DL 6.3 GM/DL Albumin 2.9 GM/DL 2.7 GM/DL Calcium Level 8.7 MG/DL 8.2 MG/DL Alkaline Phosphatase 98 U/L 112 U/L Aspartate Amino Transf (AST/SGOT) 45 U/L 158 U/L Alanine Aminotransferase (ALT/SGPT) 55 U/L 174 U/L Total Bilirubin 0.2 MG/DL 0.3 MG/DL Sodium Level 142 MEQ/L 145 MEQ/L Potassium Level 3.8 MEQ/L 3.8 MEQ/L Chloride Level 105 MEQ/L 105 MEQ/L Carbon Dioxide Level 31.9 MEQ/L 35.7 MEQ/L Anion Gap 5 MEQ/L 4 MEQ/L Estimat Glomerular Filtration Rate 95 ML/MIN 86 ML/MIN Urine Color DARK-YELLOW Urine Turbidity CLEAR Urine Specific [place] 1.005 Urine Protein 300 mg/dL Urine Glucose (UA) NEG mg/dL Urine Ketones NEG mg/dL Urine Occult Blood NEG Urine Nitrite NEG Urine Bilirubin NEG Urine Urobilinogen LESS THAN 2.0 MG/DL Urine Leukocyte Esterase LARGE Urine WBC 5 /hpf Urine Squamous Epithelial Cells 1 /hpf Microscopic Urinalysis Comment CULT NOT INDICATED Test 08/08/17 06:15 Urine pH 8.5 Administered Medications Medications (Trade) Dose Ordered Sig/Thaddeus Route PRN Reason Start Time Stop Time Status Last Admin Dose Admin Senna/Docusate Sodium (Maddy-Colace) 1 tab BID PO 07/15/17 09:00 08/07/17 22:04 Magnesium Hydroxide (Milk Of Magnesia Liq) 30 ml Q12H PRN PO Mild constipation 07/14/17 22:15 08/01/17 09:37 Sennosides (Senokot) 17.2 mg Q12H PRN PO Moderate constipation 07/14/17 22:15 07/31/17 22:58 Bisacodyl (Dulcolax Supp) 10 mg DAILY PRN RECTAL SEVERE CONSITIPATION/ IF NPO 07/14/17 22:15 08/07/17 22:05 Lactulose (Lactulose Liq) 30 ml DAILY PRN PO SEVERE CONSITIPATION/ IF PO 07/14/17 22:15 08/02/17 09:39 Albuterol Sulfate (Albuterol Neb) 2.5 mg Q4HR NEB PRN NEB sob/wheezing 07/14/17 22:30 07/14/17 23:41 Allopurinol (Zyloprim) 100 mg BID PO 07/15/17 09:00 08/07/17 22:04 Atorvastatin Calcium (Lipitor) 40 mg HS PO 07/15/17 21:00 08/07/17 22:04 Citalopram Hydrobromide (CeleXA) 20 mg DAILY PO 07/15/17 09:00 08/07/17 13:12 Levothyroxine Sodium (Synthroid) 150 mcg DAILY@0700 PO 07/15/17 07:00 08/08/17 05:41 Quetiapine Fumarate (SEROquel) 25 mg HS PO 07/15/17 21:00 08/07/17 22:03 Albuterol/ Ipratropium (Duoneb Neb) 1 ampule Q4HR NEB PRN INH SHORTNESS OF BREATH 07/16/17 13:30 07/20/17 20:13 Chlorhexidine Gluconate (Peridex 0.12% Liq) 15 ml BID@08,20 MT 07/16/17 20:00 08/01/17 20:00 Famotidine (Pepcid) 20 mg BID PO 07/16/17 21:00 08/07/17 22:04 Chlorhexidine Gluconate (Chlorhexidine 2% Cloth) 3 pack Taper DAILY@04 TOP 07/17/17 04:00 07/13/18 03:59 07/29/17 04:00 Heparin Sodium (Porcine) (Heparin Central Flush) See Protocol DAILY IV FLUSH 07/17/17 09:00 08/07/17 13:13 Heparin Sodium (Porcine) (Heparin Central Flush) See Protocol UNSCH PRN IV FLUSH SEE PROTOCOL TABLE 07/16/17 19:30 07/31/17 22:59 Sodium Chloride (NS Flush) See Protocol UNSCH PRN IV FLUSH FLUSH AFTER USING IV ACCESS 07/16/17 19:30 08/06/17 10:29 Docusate Sodium (Colace) 100 mg BID PO 07/17/17 21:00 08/07/17 22:05 Ondansetron HCl (Zofran Inj) 4 mg Q6H PRN IV PUSH NAUSEA OR VOMITING 07/17/17 10:45 08/03/17 15:04 Acetaminophen/ Hydrocodone Bitart ([place] 10-325 Mg) 1 tab Q4H PRN PO PAIN SCALE 1 TO 5 07/17/17 11:45 07/30/17 04:36 Acetaminophen/ Hydrocodone Bitart ([place] 10-325 Mg) 2 tab Q4H PRN PO PAIN SCALE 6 TO 10 07/17/17 11:45 07/24/17 15:43 Morphine Sulfate (Morphine Inj) 4 mg Q2H PRN IV PUSH PAIN SCALE 7 TO 10 07/17/17 11:45 07/20/17 09:44 Acetaminophen (Tylenol) 650 mg Q4H PRN PO TEMPERATURE > 101.5 F 07/17/17 11:45 08/07/17 00:21 Phenytoin (Dilantin) 100 mg Q8HR PO 07/22/17 14:00 Future Hold 07/25/17 13:35 Ferrous Sulfate (Ferrous Sulfate) 325 mg DAILY PO 07/24/17 09:00 08/07/17 13:12 Dexamethasone (Decadron) 4 mg Q6HR PO 08/01/17 18:00 08/08/17 05:39 Levetriacetam (Keppra) 1,000 mg Q12HR PO 08/02/17 21:00 08/07/17 22:03 Phenytoin (Dilantin) 100 mg Q8HR PO 08/02/17 14:00 08/08/17 05:39 Sodium Bicarbonate 100 meq/Dextrose 1,100 ml @ 150 mls/hr Q7H20M IV 08/07/17 15:00 08/09/17 14:59 08/07/17 22:20 Objective Remarks GENERAL: Pleasant elderly female, supine in bed. SKIN: Warm and dry. HEAD: Normocephalic. EYES: No scleral icterus. No injection or drainage. NECK: Supple, trachea midline. CARDIOVASCULAR: Regular rate and rhythm RESPIRATORY: anterior lewis clear. GASTROINTESTINAL: Abdomen soft, non-tender, nondistended. EXTREMITIES: No cyanosis NEUROLOGICAL: awake and alert. right sided paresis. 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 received 6 cycles of R-CHOP under the direction of Dr. Avles at [facility] in [place] (was in remission) Assessment 61y/o female with DELINQUENT ACCOUNT CLERK lymphoma. Plan 1. Methotrexate given yesterday at dose of 8000mg/m2. Today at 3PM we will check 24 hour MTX level and start Leucovorin 25 mg IV over 15 minutes and then continue every 6 hours until methotreate concentration is less than 0.1 micromol /L. 2. monitor urine pH, maintain above 7.0. continue D5 + sodium bicarbonate 3. monitor CBC, CMP Attending Statement The exam, history, and the medical decision-making described in the above note were completed with the assistance of the mid-level provider. I reviewed and agree with the findings presented. I attest that I had a [id number] encounter with the patient on the same day, and personally performed and documented my assessment and findings in the medical record. As per patient's daughter she is confused somewhat today. She had high dose methotrexate yesterday and seems to have tolerated well. Constipation has resolved for the magcitrate Liver enzymes are elevated most likely due to high-dose methotrexate. Will monitor the liver enzymes. Methotrexate level this afternoon and then she will start on leucovorin rescue dose. Monitor the CBC and liver enzymes. Discussed with the patient's daughter and answer her questions. Discussed with patient's RN. Yin Still August 08, 2017 09:01 Vishnu Glez MD August 08, 2017 18:25
[2017-08-08] MEDS: FERROUS SULFATE 325 MG (65 MG ELEMENTAL IRON) TAB PO SCH (10:03)
[2017-08-08] MEDS: CITALOPRAM HYDROBROMIDE 20 MG TAB PO SCH (10:03)
[2017-08-08] MEDS: levETIRAcetam 500 MG TAB PO SCH ×2 (10:03→21:11)
[2017-08-08] MEDS: ALLOPURINOL 100 MG TAB PO SCH ×2 (10:03→21:10)
[2017-08-08] MEDS: DOCUSATE SODIUM 100 MG CAP PO SCH ×2 (10:03→21:00)
[2017-08-08] MEDS: MAGNESIUM HYDROXIDE SUSP 30 ML CUP PO PRN (10:03)
[2017-08-08] MEDS: FAMOTIDINE 20 MG TAB PO SCH ×2 (10:03→21:11)
[2017-08-08] MEDS: DOCUSATE SODIUM 50 MG/SENNA 8.6 MG TAB PO SCH ×2 (10:03→21:00)
[2017-08-08] MEDS: SODIUM BICARBONATE 8.4% INJ 100 MEQ in DEXTROSE 5% IN WATE 1000ML INJ 1,000 ML IV SCH ×8 (10:04→23:37)
--- NOTE | 2017-08-08 15:18 | HHI.PR ---
Subjective Remarks Use patient's daughter as vascular manager. Patient says she is feeling better today. Denies any chest pain or shortness of breath. Pain under control. No fevers overnight. Objective Vital Signs Date Time Temp Pulse Resp B/P (MAP) Pulse Ox O2 Delivery O2 Flow Rate FiO2 08/08/17 12:05 98.7 68 18 89/48 (62) 99 08/08/17 10:11 97 Nasal Cannula 2.00 08/08/17 09:53 97.5 47 18 108/46 (66) 97 08/08/17 07:00 47 08/08/17 05:32 98.3 55 16 101/55 (70) 96 08/08/17 00:21 97.3 53 16 100/56 (71) 98 08/08/17 00:05 51 08/07/17 22:18 98.3 53 18 106/55 (72) 100 08/07/17 20:06 53 08/07/17 20:00 98 Nasal Cannula 2.00 08/07/17 17:56 98.6 53 18 141/64 (89) 99 08/07/17 16:00 99 Nasal Cannula 2.00 08/07/17 16:00 53 I/O 08/07/17 08/07/17 08/07/17 08/08/17 08/08/17 08/08/17 06:59 14:59 22:59 06:59 14:59 22:59 Intake Total 1000 ml 2201.6 ml 140 ml Output Total 300 ml 1401 ml 852 ml 300 ml Balance -300 ml 1000 ml 800.6 ml -712 ml -300 ml Intake Oral 140 ml IV Total 1000 ml 2201.6 ml Output Urine Total 300 ml 1400 ml 850 ml 300 ml Stool Total 1 ml 2 ml Result Diagram: 08/08/17 0530 08/08/17 0530 Objective Remarks GENERAL: Patient sitting up in bed. Appears comfortable. More alert today. Smiling. SKIN: Warm and dry. HEAD: Normocephalic. EYES: No scleral icterus. No injection or drainage. NECK: Supple, trachea midline. No JVD. CARDIOVASCULAR: Regular rate and rhythm without murmurs, gallops, or rubs. RESPIRATORY: Breath sounds equal bilaterally. No accessory muscle use. GASTROINTESTINAL: Abdomen soft, non-tender, nondistended. MUSCULOSKELETAL: No cyanosis, or edema. BACK: Nontender without obvious deformity. No CVA tenderness. A/P Assessment and Plan === 08/08/17 //Fever. Urine analysis without signs of infection. Chest x-ray with atelectasis. Incentive spirometer and Acapella ordered. No fevers overnight. //B-cell lymphoma with brain metastasis. Patient objectively improving on methotrexate. Continue to monitor. Appreciate oncology assistance. 61-year-old female admitted secondary to encephalopathy found to be related to 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 -Plan for chemo hem onc ff/ However patient can be transferred back to [facility] to resume chemo there. Hem/onc will get in touch with oncologist at [facility]. unabvle to do chemo at [place] apparently Continue working with PT. 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 with vasogenic edema and midline shift status post biopsy Continue steroids Continue to follow clinically Neurology following //Hypothyroidism, chronic Continue supplements Follows as outpatient //Hypertension Continue baseline treatment Follow blood pressures Adjust treatments as needed //Asthma No exacerbation Breathing treatments as needed //H/o ischemic CVA with possible seizure activity at the time of the CVA - no seizures since and does not take AEDs Monitor for any seizure activity Continue Keppra PO Cerebyx 100mg Q8 DCd and change to phenytoin PO continue //Hyperlipidemia Continue present treatment Follow as an outpatient //Bipolar disorder No change to baseline treatments //Obstructive sleep apnea CPAP //Generalize physical deficit May be contributory by brain edema Continue physical therapy //DVT prophylaxis Bleed risk is present SCDs Discharge Planning Continues on chemotherapy per heme oncology. DC when cleared by oncology. No oncology at [place]. Iban Cobos MD August 08, 2017 15:18
[2017-08-08] MEDS: LEUCOVORIN IV SCH ×2 (15:20→21:50)
[2017-08-08] MEDS: SODIUM CHLORIDE 0.9% IV SCH ×2 (15:20→21:50)
[2017-08-08] MEDS: QUEtiapine FUMARATE 25 MG TAB PO SCH (21:11)
[2017-08-08] MEDS: ATORVASTATIN 40 MG TAB PO SCH (21:11)
[2017-08-08] MEDS: RESP: ALBUTEROL 2.5 MG/IPRATROPIUM 0.5 MG NEB (SCH) NEB (23:08)
[2017-08-09] VITALS (14 sets, daily range): BP systolic 93–135; BP diastolic 64–74; PULSE 60–89; RESP 18–20; TEMP 98.5–99.7; O2SAT 96–100
[2017-08-09] MEDS: CHLORHEXIDINE GLUCONATE 2 % 1 PACK (2 CLOTHS) TOP SCH (03:06)
[2017-08-09] MEDS: LEUCOVORIN IV SCH ×4 (04:06→21:44)
[2017-08-09] MEDS: SODIUM CHLORIDE 0.9% IV SCH ×4 (04:06→21:44)
[2017-08-09] MEDS: LEVOTHYROXINE SODIUM 150 MCG TAB PO SCH (05:52)
[2017-08-09] MEDS: PHENYTOIN SODIUM 100 MG CAP PO SCH ×3 (05:52→21:47)
[2017-08-09] MEDS: DEXAMETHASONE 4 MG TAB PO SCH ×4 (05:52→23:54)
[2017-08-09] MEDS: ONDANSETRON HCL 4 MG/2 ML VIAL IV PUSH PRN (06:03)
[2017-08-09 06:32] LABS: AUTOMATED NEUTROPHIL # 6.9 TH/MM3 (1.8-7.7); BASOPHIL % 0.5 % (0.0-2.0); EOSINOPHIL # 0.1 TH/MM3 (0-0.4); EOSINOPHIL % 1.4 % (0.0-4.0); HEMATOCRIT 30.7 % (35.0-46.0); HEMOGLOBIN 10.4 GM/DL (11.6-15.3); LYMPH % 17.7 % (9.0-44.0); LYMPHOCYTE # 1.7 TH/MM3 (1.0-4.8); MEAN CELL VOLUME 95.2 FL (80.0-100.0); MEAN CORPUSCULAR HEMOGLOBIN 32.3 PG (27.0-34.0); MEAN CORPUSCULAR HGB CONC 33.9 % (32.0-36.0); MEAN PLATELET VOLUME 7.8 FL (7.0-11.0); MONO % 6.7 % (0.0-8.0); MONOCYTE # 0.6 TH/MM3 (0-0.9); NEUT % 73.7 % (16.0-70.0); PLATELET COUNT 271 TH/MM3 (150-450); RED BLOOD COUNT 3.22 MIL/MM3 (4.00-5.30); RED CELL DISTRIBUTION WIDTH 13.9 % (11.6-17.2); WHITE BLOOD COUNT 9.4 TH/MM3 (4.0-11.0)
[2017-08-09 07:01] LABS: ALBUMIN 2.8 GM/DL (3.4-5.0); AST (GOT) 87 U/L (15-37); BLOOD UREA NITROGEN 12 MG/DL (7-18); CALCIUM 8.4 MG/DL (8.5-10.1); CHLORIDE 104 MEQ/L (98-107); CREATININE 0.95 MG/DL (0.50-1.00); GLOMERULAR FILTRATION RATE 59 ML/MIN (>89); GLUCOSE,RANDOM 114 MG/DL (74-106); SODIUM (NA) 144 MEQ/L (136-145)
[2017-08-09 07:02] LABS: ALT (GPT) 146 U/L (10-53)
[2017-08-09 07:05] LABS: ALKALINE PHOSPHATASE 111 U/L (45-117); TOTAL BILIRUBIN ADULT 0.2 MG/DL (0.2-1.0); TOTAL PROTEIN 6.3 GM/DL (6.4-8.2)
[2017-08-09] MEDS: RESP: ALBUTEROL 2.5 MG/IPRATROPIUM 0.5 MG NEB (SCH) NEB ×3 (07:15→23:42)
[2017-08-09] MEDS: CHLORHEXIDINE 0.12% (ORAL KIT) 15 ML CUP MT SCH ×2 (08:00→20:00)
--- NOTE | 2017-08-09 09:24 | PD.ONC.PN ---
Subjective Subjective Remarks Afebrile overnight. Patient resting in bed in nad. No overnight events. Tolerating leucovorin. Objective Data Date Time Temp Pulse Resp B/P (MAP) Pulse Ox O2 Delivery O2 Flow Rate FiO2 08/09/17 07:15 100 Nasal Cannula 2.00 08/09/17 07:00 79 08/09/17 04:15 60 08/09/17 04:11 98.8 61 20 118/72 (87) 100 08/09/17 00:00 99.0 61 18 120/70 (87) 100 08/09/17 00:00 61 08/08/17 21:10 Room Air 08/08/17 21:08 99.2 56 20 115/67 (83) 100 08/08/17 20:55 96 21 08/08/17 20:25 59 08/08/17 15:00 64 08/08/17 12:05 98.7 68 18 89/48 (62) 99 08/08/17 12:00 71 08/08/17 10:11 97 Nasal Cannula 2.00 08/08/17 09:53 97.5 47 18 108/46 (66) 97 08/09/17 08/09/17 08/09/17 07:00 15:00 23:00 Intake Total 480 ml Output Total 1000 ml Balance -520 ml Result Diagram: 08/09/17 0550 08/09/17 0550 Laboratory Results Laboratory Tests Test 08/08/17 12:15 08/08/17 14:55 08/08/17 15:14 08/08/17 21:18 Phenytoin (Dilantin) Level 4.0 MCG/ML Urine pH 8.5 8.5 Test 08/09/17 05:50 White Blood Count 9.4 TH/MM3 Red Blood Count 3.22 MIL/MM3 Hemoglobin 10.4 GM/DL Hematocrit 30.7 % Mean Corpuscular Volume 95.2 FL Mean Corpuscular Hemoglobin 32.3 PG Mean Corpuscular Hemoglobin Concent 33.9 % Red Cell Distribution Width 13.9 % Platelet Count 271 TH/MM3 Mean Platelet Volume 7.8 FL Neutrophils (%) (Auto) 73.7 % Lymphocytes (%) (Auto) 17.7 % Monocytes (%) (Auto) 6.7 % Eosinophils (%) (Auto) 1.4 % Basophils (%) (Auto) 0.5 % Neutrophils # (Auto) 6.9 TH/MM3 Lymphocytes # (Auto) 1.7 TH/MM3 Monocytes # (Auto) 0.6 TH/MM3 Eosinophils # (Auto) 0.1 TH/MM3 Basophils # (Auto) 0.0 TH/MM3 CBC Comment DIFF FINAL Differential Comment Urine pH 8.5 Blood Urea Nitrogen 12 MG/DL Creatinine 0.95 MG/DL Random Glucose 114 MG/DL Total Protein 6.3 GM/DL Albumin 2.8 GM/DL Calcium Level 8.4 MG/DL Alkaline Phosphatase 111 U/L Aspartate Amino Transf (AST/SGOT) 87 U/L Alanine Aminotransferase (ALT/SGPT) 146 U/L Total Bilirubin 0.2 MG/DL Sodium Level 144 MEQ/L Potassium Level 3.6 MEQ/L Chloride Level 104 MEQ/L Carbon Dioxide Level 33.0 MEQ/L Anion Gap 7 MEQ/L Estimat Glomerular Filtration Rate 59 ML/MIN Administered Medications Medications (Trade) Dose Ordered Sig/Thaddeus Route PRN Reason Start Time Stop Time Status Last Admin Dose Admin Senna/Docusate Sodium (Maddy-Colace) 1 tab BID PO 07/15/17 09:00 08/08/17 10:03 Magnesium Hydroxide (Milk Of Magnesia Liq) 30 ml Q12H PRN PO Mild constipation 07/14/17 22:15 08/08/17 10:03 Sennosides (Senokot) 17.2 mg Q12H PRN PO Moderate constipation 07/14/17 22:15 07/31/17 22:58 Bisacodyl (Dulcolax Supp) 10 mg DAILY PRN RECTAL SEVERE CONSITIPATION/ IF NPO 07/14/17 22:15 08/07/17 22:05 Lactulose (Lactulose Liq) 30 ml DAILY PRN PO SEVERE CONSITIPATION/ IF PO 07/14/17 22:15 08/02/17 09:39 Albuterol Sulfate (Albuterol Neb) 2.5 mg Q4HR NEB PRN NEB sob/wheezing 07/14/17 22:30 07/14/17 23:41 Allopurinol (Zyloprim) 100 mg BID PO 07/15/17 09:00 08/08/17 21:10 Atorvastatin Calcium (Lipitor) 40 mg HS PO 07/15/17 21:00 08/08/17 21:11 Citalopram Hydrobromide (CeleXA) 20 mg DAILY PO 07/15/17 09:00 08/08/17 10:03 Levothyroxine Sodium (Synthroid) 150 mcg DAILY@0700 PO 07/15/17 07:00 08/09/17 05:52 Quetiapine Fumarate (SEROquel) 25 mg HS PO 07/15/17 21:00 08/08/17 21:11 Chlorhexidine Gluconate (Peridex 0.12% Liq) 15 ml BID@08,20 MT 07/16/17 20:00 08/01/17 20:00 Famotidine (Pepcid) 20 mg BID PO 07/16/17 21:00 08/08/17 21:11 Chlorhexidine Gluconate (Chlorhexidine 2% Cloth) 3 pack Taper DAILY@04 TOP 07/17/17 04:00 07/13/18 03:59 07/29/17 04:00 Heparin Sodium (Porcine) (Heparin Central Flush) See Protocol DAILY IV FLUSH 07/17/17 09:00 08/07/17 13:13 Heparin Sodium (Porcine) (Heparin Central Flush) See Protocol UNSCH PRN IV FLUSH SEE PROTOCOL TABLE 07/16/17 19:30 08/09/17 05:52 Sodium Chloride (NS Flush) See Protocol UNSCH PRN IV FLUSH FLUSH AFTER USING IV ACCESS 07/16/17 19:30 08/06/17 10:29 Docusate Sodium (Colace) 100 mg BID PO 07/17/17 21:00 08/08/17 10:03 Ondansetron HCl (Zofran Inj) 4 mg Q6H PRN IV PUSH NAUSEA OR VOMITING 07/17/17 10:45 08/09/17 06:03 Acetaminophen/ Hydrocodone Bitart ([place] 10-325 Mg) 1 tab Q4H PRN PO PAIN SCALE 1 TO 5 07/17/17 11:45 07/30/17 04:36 Acetaminophen/ Hydrocodone Bitart ([place] 10-325 Mg) 2 tab Q4H PRN PO PAIN SCALE 6 TO 10 07/17/17 11:45 07/24/17 15:43 Morphine Sulfate (Morphine Inj) 4 mg Q2H PRN IV PUSH PAIN SCALE 7 TO 10 07/17/17 11:45 07/20/17 09:44 Acetaminophen (Tylenol) 650 mg Q4H PRN PO TEMPERATURE > 101.5 F 07/17/17 11:45 08/07/17 00:21 Phenytoin (Dilantin) 100 mg Q8HR PO 07/22/17 14:00 Future Hold 07/25/17 13:35 Ferrous Sulfate (Ferrous Sulfate) 325 mg DAILY PO 07/24/17 09:00 08/08/17 10:03 Dexamethasone (Decadron) 4 mg Q6HR PO 08/01/17 18:00 08/09/17 05:52 Levetriacetam (Keppra) 1,000 mg Q12HR PO 08/02/17 21:00 08/08/17 21:11 Phenytoin (Dilantin) 100 mg Q8HR PO 08/02/17 14:00 08/09/17 05:52 Sodium Bicarbonate 100 meq/Dextrose 1,100 ml @ 150 mls/hr Q7H20M IV 08/07/17 15:00 08/09/17 14:59 08/08/17 23:37 Leucovorin Calcium 25 mg/ Sodium Chloride 50 ml @ 200 mls/hr Q6H IV 08/08/17 15:00 08/11/17 09:14 08/09/17 04:06 Albuterol/ Ipratropium (Duoneb Neb) 1 ampule Q8HR NEB NEB 08/08/17 16:00 08/09/17 07:15 Objective Remarks GENERAL: Pleasant elderly female, lying in bed resting. SKIN: Warm and dry. HEAD: Normocephalic. MOUTH: no mucositis. EYES: No injection or drainage. NECK: Supple, trachea midline. CARDIOVASCULAR: Regular rate and rhythm RESPIRATORY: anterior lewis clear. GASTROINTESTINAL: Abdomen soft, non-tender, nondistended. EXTREMITIES: No cyanosis NEUROLOGICAL: awake. right sided paresis. Assessment/Plan Problem List: (1) B-cell lymphoma ICD Codes: C85.10 - Unspecified B-cell lymphoma, unspecified site Plan: 08/09/17: T+48 hours@1500. MTX level pending. continue Leucovorin. monitor urine pH. 08/08/17: T+24 hours @1500. MTX level pending. Leucovorin started @1500. urine pH >7 08/07/17: MTX given at 1500. 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 received 6 cycles of R-CHOP under the direction of Dr. Alves at [facility] in [place] (was in remission) Assessment 61y/o female with SOFTWARE TESTER lymphoma. Attending Statement The exam, history, and the medical decision-making described in the above note were completed with the assistance of the mid-level provider. I reviewed and agree with the findings presented. I attest that I had a [id number] encounter with the patient on the same day, and personally performed and documented my assessment and findings in the medical record. Multiple family members are present because of Mother's Day According to the daughter patient is talking more but still she is confused. Liver enzymes are improving Continue leucovorin rescue. Dr. Melendez to follow in the morning Problem Qualifiers (1) B-cell lymphoma: Qualified Codes: C85.10 - Unspecified B-cell lymphoma, unspecified site Yin Still August 09, 2017 09:24 Vishnu Glez MD August 09, 2017 17:05
[2017-08-09] MEDS: FAMOTIDINE 20 MG TAB PO SCH ×2 (09:38→21:44)
[2017-08-09] MEDS: ALLOPURINOL 100 MG TAB PO SCH ×2 (09:38→21:45)
[2017-08-09] MEDS: FERROUS SULFATE 325 MG (65 MG ELEMENTAL IRON) TAB PO SCH (09:38)
[2017-08-09] MEDS: levETIRAcetam 500 MG TAB PO SCH ×2 (09:38→21:45)
[2017-08-09] MEDS: DOCUSATE SODIUM 100 MG CAP PO SCH ×2 (09:38→21:00)
[2017-08-09] MEDS: DOCUSATE SODIUM 50 MG/SENNA 8.6 MG TAB PO SCH ×2 (09:38→21:00)
[2017-08-09] MEDS: CITALOPRAM HYDROBROMIDE 20 MG TAB PO SCH (09:38)
[2017-08-09] MEDS: SODIUM BICARBONATE 8.4% INJ 100 MEQ in DEXTROSE 5% IN WATE 1000ML INJ 1,000 ML IV SCH ×4 (10:50→21:45)
[2017-08-09] MEDS ORDERED: HOSP BED1 (15:22)
--- NOTE | 2017-08-09 15:28 | HHI.PR ---
Subjective Remarks Use patient's daughter as christmas bell ringer. Patient says she is feeling well. Denies any chest pain or shortness of breath. Positive bowel movements. Objective Vital Signs Date Time Temp Pulse Resp B/P (MAP) Pulse Ox O2 Delivery O2 Flow Rate FiO2 08/09/17 15:00 70 08/09/17 11:23 98.5 83 18 93/64 (74) 100 08/09/17 11:00 89 08/09/17 09:45 100 Nasal Cannula 2.00 08/09/17 09:33 98.6 87 18 113/70 (84) 100 08/09/17 07:15 100 Nasal Cannula 2.00 08/09/17 07:00 79 08/09/17 04:15 60 08/09/17 04:11 98.8 61 20 118/72 (87) 100 08/09/17 00:00 99.0 61 18 120/70 (87) 100 08/09/17 00:00 61 08/08/17 21:10 Room Air 08/08/17 21:08 99.2 56 20 115/67 (83) 100 08/08/17 20:55 96 21 08/08/17 20:25 59 I/O 08/08/17 08/08/17 08/08/17 08/09/17 08/09/17 08/09/17 06:59 14:59 22:59 06:59 14:59 22:59 Intake Total 140 ml 1990 ml 480 ml 1100 ml Output Total 852 ml 300 ml 500 ml 1000 ml Balance -712 ml -300 ml 1490 ml -520 ml 1100 ml Intake Oral 140 ml 840 ml 480 ml IV Total 1150 ml 1100 ml Output Urine Total 850 ml 300 ml 500 ml 1000 ml Stool Total 2 ml # Voids 2 # Bowel Movements 3 Result Diagram: 08/09/17 0550 08/09/17 0550 Objective Remarks GENERAL: Patient sitting up in bed. Appears comfortable. Alert.. Smiling. SKIN: Warm and dry. HEAD: Normocephalic. EYES: No scleral icterus. No injection or drainage. NECK: Supple, trachea midline. No JVD. CARDIOVASCULAR: Regular rate and rhythm without murmurs, gallops, or rubs. RESPIRATORY: Breath sounds equal bilaterally. No accessory muscle use. GASTROINTESTINAL: Abdomen soft, non-tender, nondistended. MUSCULOSKELETAL: No cyanosis, or edema. BACK: Nontender without obvious deformity. No CVA tenderness. A/P Assessment and Plan === 08/09/17 //Fever. No further fevers. Likely atelectasis. Continue incentive spirometry and Acapella. Monitor. //B-cell lymphoma with brain metastasis. Patient objectively improving on methotrexate. Continue to monitor. Appreciate oncology assistance. 61-year-old female admitted secondary to encephalopathy found to be related to 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 -Plan for chemo hem onc ff/ However patient can be transferred back to [facility] to resume chemo there. Hem/onc will get in touch with oncologist at [facility]. unabvle to do chemo at [place] apparently Continue working with PT. 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 with vasogenic edema and midline shift status post biopsy Continue steroids Continue to follow clinically Neurology following //Hypothyroidism, chronic Continue supplements Follows as outpatient //Hypertension Continue baseline treatment Follow blood pressures Adjust treatments as needed //Asthma No exacerbation Breathing treatments as needed //H/o ischemic CVA with possible seizure activity at the time of the CVA - no seizures since and does not take AEDs Monitor for any seizure activity Continue Keppra PO Cerebyx 100mg Q8 DCd and change to phenytoin PO continue //Hyperlipidemia Continue present treatment Follow as an outpatient //Bipolar disorder No change to baseline treatments //Obstructive sleep apnea CPAP //Generalize physical deficit May be contributory by brain edema Continue physical therapy //DVT prophylaxis Bleed risk is present SCDs Discharge Planning Continues on chemotherapy per heme oncology. DC when cleared by oncology. No oncology at [place]. Iban Cobos MD August 09, 2017 15:28
[2017-08-09] MEDS: ATORVASTATIN 40 MG TAB PO SCH (21:44)
[2017-08-09] MEDS: QUEtiapine FUMARATE 25 MG TAB PO SCH (21:45)
[2017-08-10] VITALS (12 sets, daily range): BP systolic 104–134; BP diastolic 62–73; PULSE 65–81; RESP 18–21; TEMP 98.2–99.1; O2SAT 95–99
[2017-08-10] MEDS: LEUCOVORIN IV SCH ×2 (03:08→10:40)
[2017-08-10] MEDS: SODIUM CHLORIDE 0.9% IV SCH ×2 (03:08→10:40)
[2017-08-10] MEDS: CHLORHEXIDINE GLUCONATE 2 % 1 PACK (2 CLOTHS) TOP SCH (05:12)
[2017-08-10] MEDS: SODIUM BICARBONATE 8.4% INJ 100 MEQ in DEXTROSE 5% IN WATE 1000ML INJ 1,000 ML IV SCH ×4 (05:29→17:44)
[2017-08-10] MEDS: DEXAMETHASONE 4 MG TAB PO SCH ×4 (05:30→23:51)
[2017-08-10] MEDS: LEVOTHYROXINE SODIUM 150 MCG TAB PO SCH (05:30)
[2017-08-10] MEDS: PHENYTOIN SODIUM 100 MG CAP PO SCH ×3 (05:30→21:22)
[2017-08-10 05:57] LABS: AUTOMATED NEUTROPHIL # 6.1 TH/MM3 (1.8-7.7); BASOPHIL % 0.4 % (0.0-2.0); EOSINOPHIL # 0.2 TH/MM3 (0-0.4); HEMATOCRIT 26.2 % (35.0-46.0); LYMPH % 13.2 % (9.0-44.0); MEAN CELL VOLUME 94.7 FL (80.0-100.0); MEAN CORPUSCULAR HEMOGLOBIN 32.4 PG (27.0-34.0); MEAN CORPUSCULAR HGB CONC 34.2 % (32.0-36.0); MEAN PLATELET VOLUME 7.7 FL (7.0-11.0); MONO % 2.3 % (0.0-8.0); MONOCYTE # 0.2 TH/MM3 (0-0.9); NEUT % 81.1 % (16.0-70.0); PLATELET COUNT 270 TH/MM3 (150-450); RED BLOOD COUNT 2.77 MIL/MM3 (4.00-5.30); RED CELL DISTRIBUTION WIDTH 14.1 % (11.6-17.2); WHITE BLOOD COUNT 7.6 TH/MM3 (4.0-11.0)
[2017-08-10 06:22] LABS: ALBUMIN 2.5 GM/DL (3.4-5.0); ALT (GPT) 93 U/L (10-53); AST (GOT) 51 U/L (15-37); BICARBONATE 37.7 MEQ/L (21.0-32.0); BLOOD UREA NITROGEN 24 MG/DL (7-18); CHLORIDE 99 MEQ/L (98-107); CREATININE 2.69 MG/DL (0.50-1.00); GLOMERULAR FILTRATION RATE 18 ML/MIN (>89); GLUCOSE,RANDOM 111 MG/DL (74-106); SODIUM (NA) 143 MEQ/L (136-145)
[2017-08-10 06:24] LABS: ALKALINE PHOSPHATASE 101 U/L (45-117); TOTAL BILIRUBIN ADULT 0.3 MG/DL (0.2-1.0)
[2017-08-10] MEDS: CHLORHEXIDINE 0.12% (ORAL KIT) 15 ML CUP MT SCH ×2 (08:00→20:00)
[2017-08-10] MEDS: RESP: ALBUTEROL 2.5 MG/IPRATROPIUM 0.5 MG NEB (SCH) NEB ×3 (08:17→23:37)
[2017-08-10] MEDS ORDERED: SODIUM CHLOR 0.9% 1000 ML INJ 1,000 ML IV SCH (09:42)
[2017-08-10] MEDS: DOCUSATE SODIUM 50 MG/SENNA 8.6 MG TAB PO SCH ×2 (10:40→21:00)
[2017-08-10] MEDS: DOCUSATE SODIUM 100 MG CAP PO SCH ×2 (10:40→21:00)
[2017-08-10] MEDS: ALLOPURINOL 100 MG TAB PO SCH ×2 (10:40→21:21)
[2017-08-10] MEDS: FAMOTIDINE 20 MG TAB PO SCH (10:40)
[2017-08-10] MEDS: CITALOPRAM HYDROBROMIDE 20 MG TAB PO SCH (10:41)
[2017-08-10] MEDS: levETIRAcetam 500 MG TAB PO SCH ×2 (10:41→21:21)
[2017-08-10] MEDS: FERROUS SULFATE 325 MG (65 MG ELEMENTAL IRON) TAB PO SCH (10:43)
--- NOTE | 2017-08-10 10:43 | PD.ONC.PN ---
Subjective Subjective Remarks Afebrile Patient's daughter states she was trying to get out of bed this morning to go to the restroom No major change in mentation Leucovorin continues Objective Data Date Time Temp Pulse Resp B/P (MAP) Pulse Ox O2 Delivery O2 Flow Rate FiO2 08/10/17 09:11 98.5 67 18 104/67 (79) 98 08/10/17 04:05 72 08/10/17 04:00 98.2 67 21 121/62 (81) 97 08/10/17 00:02 73 08/10/17 00:00 98.8 75 20 125/73 (90) 96 08/09/17 23:44 98 Nasal Cannula 2.00 08/09/17 21:38 99.1 80 18 112/64 (80) 96 08/09/17 20:33 76 08/09/17 19:35 97 21 08/09/17 19:23 Room Air 08/09/17 15:26 99.7 68 18 135/74 (94) 98 08/09/17 15:00 70 08/09/17 11:23 98.5 83 18 93/64 (74) 100 08/09/17 11:00 89 08/10/17 08/10/17 08/10/17 07:00 15:00 23:00 Intake Total 240 ml Output Total 500 ml Balance -260 ml Result Diagram: 08/10/17 0540 08/10/17 0540 Laboratory Results Laboratory Tests Test 08/09/17 14:00 08/09/17 15:13 08/09/17 20:45 08/10/17 05:40 Urine pH 8.5 8.5 8.5 Methotrexate Level 0.37 UMOL/L White Blood Count 7.6 TH/MM3 Red Blood Count 2.77 MIL/MM3 Hemoglobin 9.0 GM/DL Hematocrit 26.2 % Mean Corpuscular Volume 94.7 FL Mean Corpuscular Hemoglobin 32.4 PG Mean Corpuscular Hemoglobin Concent 34.2 % Red Cell Distribution Width 14.1 % Platelet Count 270 TH/MM3 Mean Platelet Volume 7.7 FL Neutrophils (%) (Auto) 81.1 % Lymphocytes (%) (Auto) 13.2 % Monocytes (%) (Auto) 2.3 % Eosinophils (%) (Auto) 3.0 % Basophils (%) (Auto) 0.4 % Neutrophils # (Auto) 6.1 TH/MM3 Lymphocytes # (Auto) 1.0 TH/MM3 Monocytes # (Auto) 0.2 TH/MM3 Eosinophils # (Auto) 0.2 TH/MM3 Basophils # (Auto) 0.0 TH/MM3 CBC Comment DIFF FINAL Differential Comment Blood Urea Nitrogen 24 MG/DL Creatinine 2.69 MG/DL Random Glucose 111 MG/DL Total Protein 6.0 GM/DL Albumin 2.5 GM/DL Calcium Level 8.0 MG/DL Alkaline Phosphatase 101 U/L Aspartate Amino Transf (AST/SGOT) 51 U/L Alanine Aminotransferase (ALT/SGPT) 93 U/L Total Bilirubin 0.3 MG/DL Sodium Level 143 MEQ/L Potassium Level 3.9 MEQ/L Chloride Level 99 MEQ/L Carbon Dioxide Level 37.7 MEQ/L Anion Gap 6 MEQ/L Estimat Glomerular Filtration Rate 18 ML/MIN Test 08/10/17 06:00 Administered Medications Medications (Trade) Dose Ordered Sig/Thaddeus Route PRN Reason Start Time Stop Time Status Last Admin Dose Admin Senna/Docusate Sodium (Maddy-Colace) 1 tab BID PO 07/15/17 09:00 08/09/17 09:38 Magnesium Hydroxide (Milk Of Magnesia Liq) 30 ml Q12H PRN PO Mild constipation 07/14/17 22:15 08/08/17 10:03 Sennosides (Senokot) 17.2 mg Q12H PRN PO Moderate constipation 07/14/17 22:15 07/31/17 22:58 Bisacodyl (Dulcolax Supp) 10 mg DAILY PRN RECTAL SEVERE CONSITIPATION/ IF NPO 07/14/17 22:15 08/07/17 22:05 Lactulose (Lactulose Liq) 30 ml DAILY PRN PO SEVERE CONSITIPATION/ IF PO 07/14/17 22:15 08/02/17 09:39 Albuterol Sulfate (Albuterol Neb) 2.5 mg Q4HR NEB PRN NEB sob/wheezing 07/14/17 22:30 07/14/17 23:41 Allopurinol (Zyloprim) 100 mg BID PO 07/15/17 09:00 08/09/17 21:45 Atorvastatin Calcium (Lipitor) 40 mg HS PO 07/15/17 21:00 08/09/17 21:44 Citalopram Hydrobromide (CeleXA) 20 mg DAILY PO 07/15/17 09:00 08/09/17 09:38 Levothyroxine Sodium (Synthroid) 150 mcg DAILY@0700 PO 07/15/17 07:00 08/10/17 05:30 Quetiapine Fumarate (SEROquel) 25 mg HS PO 07/15/17 21:00 08/09/17 21:45 Chlorhexidine Gluconate (Peridex 0.12% Liq) 15 ml BID@08,20 MT 07/16/17 20:00 08/01/17 20:00 Famotidine (Pepcid) 20 mg BID PO 07/16/17 21:00 08/09/17 21:44 Chlorhexidine Gluconate (Chlorhexidine 2% Cloth) Taper DAILY@04 TOP 07/17/17 04:00 07/13/18 03:59 07/29/17 04:00 Heparin Sodium (Porcine) (Heparin Central Flush) See Protocol DAILY IV FLUSH 07/17/17 09:00 08/07/17 13:13 Heparin Sodium (Porcine) (Heparin Central Flush) See Protocol UNSCH PRN IV FLUSH SEE PROTOCOL TABLE 07/16/17 19:30 08/09/17 05:52 Sodium Chloride (NS Flush) See Protocol UNSCH PRN IV FLUSH FLUSH AFTER USING IV ACCESS 07/16/17 19:30 08/06/17 10:29 Docusate Sodium (Colace) 100 mg BID PO 07/17/17 21:00 08/09/17 09:38 Ondansetron HCl (Zofran Inj) 4 mg Q6H PRN IV PUSH NAUSEA OR VOMITING 07/17/17 10:45 08/09/17 06:03 Acetaminophen/ Hydrocodone Bitart ([place] 10-325 Mg) 1 tab Q4H PRN PO PAIN SCALE 1 TO 5 07/17/17 11:45 07/30/17 04:36 Acetaminophen/ Hydrocodone Bitart ([place] 10-325 Mg) 2 tab Q4H PRN PO PAIN SCALE 6 TO 10 07/17/17 11:45 07/24/17 15:43 Morphine Sulfate (Morphine Inj) 4 mg Q2H PRN IV PUSH PAIN SCALE 7 TO 10 07/17/17 11:45 07/20/17 09:44 Acetaminophen (Tylenol) 650 mg Q4H PRN PO TEMPERATURE > 101.5 F 07/17/17 11:45 08/07/17 00:21 Phenytoin (Dilantin) 100 mg Q8HR PO 07/22/17 14:00 Future Hold 07/25/17 13:35 Ferrous Sulfate (Ferrous Sulfate) 325 mg DAILY PO 07/24/17 09:00 08/09/17 09:38 Dexamethasone (Decadron) 4 mg Q6HR PO 08/01/17 18:00 08/10/17 05:30 Levetriacetam (Keppra) 1,000 mg Q12HR PO 08/02/17 21:00 08/09/17 21:45 Phenytoin (Dilantin) 100 mg Q8HR PO 08/02/17 14:00 08/10/17 05:30 Sodium Bicarbonate 100 meq/Dextrose 1,100 ml @ 150 mls/hr Q7H20M IV 08/07/17 15:00 08/10/17 19:00 08/10/17 05:29 Leucovorin Calcium 25 mg/ Sodium Chloride 50 ml @ 200 mls/hr Q6H IV 08/08/17 15:00 08/11/17 09:14 08/10/17 03:08 Albuterol/ Ipratropium (Duoneb Neb) 1 ampule Q8HR NEB NEB 08/08/17 16:00 08/09/17 23:42 Objective Remarks GENERAL: Older female, resting in bed in no obvious distress SKIN: Warm and dry. HEAD: Normocephalic. EYES: No injection or drainage. NECK: Supple, trachea midline. CARDIOVASCULAR: Regular rate and rhythm RESPIRATORY: Clear posteriorly. Breathing unlabored at rest. GASTROINTESTINAL: Abdomen soft, non-tender, nondistended. EXTREMITIES: No cyanosis. SCD's to BLE. NEUROLOGICAL: Awake and alert. Right sided facial droop. Right sided weakness. Assessment/Plan Problem List: (1) B-cell lymphoma ICD Codes: C85.10 - Unspecified B-cell lymphoma, unspecified site Plan: 08/10/17: MTX level 0.37 yesterday at T+48 hours. With creatinine increased today, will increase leucovorin rescue to 100 mg/m Q6H. Check MTX level today at T+72 hours. Will stop leucovorin when MTX level less than 0.05. Continue HCO3, IV fluids. Continue to monitor urine pH. 08/09/17: T+48 hours@1500. MTX level pending. continue Leucovorin. monitor urine pH. 08/08/17: T+24 hours @1500. MTX level pending. Leucovorin started @1500. urine pH >7 08/07/17: MTX given at 1500. 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 received 6 cycles of R-CHOP under the direction of Dr. Alves at [facility] in [place] (was in remission) Assessment 61y/o female with BEHAVIORAL CONSULTANT lymphoma. Attending Statement The exam, history, and the medical decision-making described in the above note were completed with the assistance of the mid-level provider. I reviewed and agree with the findings presented. I attest that I had a [id number] encounter with the patient on the same day, and personally performed and documented my assessment and findings in the medical record. 61 yoF with BEHAVIORAL CONSULTANT lymphoma. She is s/p relapse of systemic lymphoma that was treated in 2015. Mental status changes as well as right sided weakness from lymphoma. Daughter at bedside reports that her mental status is slowly improving. Her mentation is improved in the morning. physical function is stable. Worsening renal funcion. Will increase fluids. Goal net positive, intake 4-5 liters. Will increase leukovorin. Will continue to follow mtx levels. Problem Qualifiers (1) B-cell lymphoma: Qualified Codes: C85.10 - Unspecified B-cell lymphoma, unspecified site Sho Reaves August 10, 2017 10:43 Evy Melendez MD August 11, 2017 08:32
[2017-08-10] MEDS ORDERED: LEUCOVORIN IV SCH (11:00)
[2017-08-10] MEDS ORDERED: SODIUM CHLORIDE 0.9% IV SCH (11:00)
[2017-08-10 11:30] LABS: BILIRUBIN, URINE NEG (NEG); BLOOD, URINE NEG (NEG); GLUCOSE,URINE NEG (NEG); KETONE, URINE NEG (NEG); MUCUS URINE FEW /lpf (OCC); NITRITE,URINE NEG (NEG); PH, URINE 8.5 (5.0-8.5); SQUAMOUS EPITHELIAL CELL URINE 1 /hpf (0-5); URINE COLOR LIGHT-YELLOW (YELLW/STRAW); URINE LEUKOCYTE ESTERASE TRACE (NEG)
[2017-08-10 11:42] LABS: CREATININE, RANDOM URINE 19.1 MG/DL
[2017-08-10] MEDS ORDERED: LEUCOVORIN INJ 50 MG in SODIUM CHLORIDE 0.9% INJ 50 ML IV SCH (12:00)
--- NOTE | 2017-08-10 12:36 | RADRPT ---
EXAM DATE/TIME: 08/10/2017 11:22 [facility] COMPARISON: CT ABDOMEN & PELVIS W CONTRAST, July 27, 2017, 15:56. INDICATIONS : Increased BUN/creatinine. MEDICAL HISTORY : Lymphoma. Hypercholesterolemia. Sleep apnea. CVA. Head trauma. HTN. Hyperlipidemia. Arthritis. Osteop orosis. Gastroesophageal reflux disease. Asthma. Hypothyroidism. SURGICAL HISTORY : Cholecystectomy. Kidney stent placed and removed. Biopsy of spine, pancreas and liver. Chemothera py. ENCOUNTER: Initial ACUITY: 1 day PAIN SCORE: 0/10 LOCATION: Bilateral flank MEASUREMENTS: RIGHT KIDNEY: 12.8 x 5.9 x 5.4 cm LEFT KIDNEY: 12.0 x 6.7 x 6.8 cm FINDINGS: RIGHT KIDNEY: Renal cortex is normal in thickness and echotexture. No hydronephrosis, stone, or mass. Hypoechoic nodule just superior to the right kidney measures 19 x 23 x 19 mm. Simple cysts upper pole measures 1 8 x 20 x 13 mm. LEFT KIDNEY: Renal cortex is normal in thickness and echotexture. No hydronephrosis, stone, or mass. Simple cyst lower pole measures 20 x 22 x 19 mm. BLADDER: Within normal limits given the degree of distension. CONCLUSION: 1. Hypoechoic lesion just superior to the right kidney likely represents right adrenal lesion. 2. Bilateral renal cysts. Orlando Tavarez MD on August 10, 2017 at 12:26 Board Certified Radiologist. This report was verified electronically.
--- NOTE | 2017-08-10 13:04 | HHI.PR ---
Subjective Remarks Use patient's daughter as pharmacy care coordinator. Patient again says she is feeling well. No chest pain or shortness of breath. Did have some agitation this morning around 6 AM, asking to leave the hospital. This agitation has resolved. Patient denies any dysuria. Objective Vital Signs Date Time Temp Pulse Resp B/P (MAP) Pulse Ox O2 Delivery O2 Flow Rate FiO2 08/10/17 09:11 98.5 67 18 104/67 (79) 98 08/10/17 04:05 72 08/10/17 04:00 98.2 67 21 121/62 (81) 97 08/10/17 00:02 73 08/10/17 00:00 98.8 75 20 125/73 (90) 96 08/09/17 23:44 98 Nasal Cannula 2.00 08/09/17 21:38 99.1 80 18 112/64 (80) 96 08/09/17 20:33 76 08/09/17 19:35 97 21 08/09/17 19:23 Room Air 08/09/17 15:26 99.7 68 18 135/74 (94) 98 08/09/17 15:00 70 I/O 08/09/17 08/09/17 08/09/17 08/10/17 08/10/17 08/10/17 07:00 15:00 23:00 07:00 15:00 23:00 Intake Total 480 ml 1100 ml 960 ml 240 ml Output Total 1000 ml 1400 ml 500 ml Balance -520 ml 1100 ml -440 ml -260 ml Intake Oral 480 ml 960 ml 240 ml IV Total 1100 ml Output Urine Total 1000 ml 1400 ml 500 ml # Voids 2 # Bowel Movements 0 Result Diagram: 08/10/17 0540 08/10/17 0540 Objective Remarks GENERAL: Patient sitting up in bed. Appears comfortable. Alert.. Smiling as yesterday. No changes on exam. SKIN: Warm and dry. HEAD: Normocephalic. EYES: No scleral icterus. No injection or drainage. NECK: Supple, trachea midline. No JVD. CARDIOVASCULAR: Regular rate and rhythm without murmurs, gallops, or rubs. RESPIRATORY: Breath sounds equal bilaterally. No accessory muscle use. GASTROINTESTINAL: Abdomen soft, non-tender, nondistended. MUSCULOSKELETAL: No cyanosis, or edema. BACK: Nontender without obvious deformity. No CVA tenderness. A/P Assessment and Plan === 08/10/17 //Fever. No further fevers. Likely atelectasis. Continue incentive spirometry and Acapella. Monitor. //B-cell lymphoma with brain metastasis. Patient objectively improving on methotrexate. Continue to monitor. Appreciate oncology assistance. //Acute kidney injury. Creatinine 2.6 from normal yesterday. Discussed with oncology. Could be secondary to chemotherapy. Patient only put out 350 mL with straight cath. No evidence of retention. Kidney ultrasound with possible adrenal lesion but no hydronephrosis noted. //Anemia. Hemoglobin 9.0. No signs of bleeding. This patient is on Pepcid for GI prophylaxis. This is likely secondary to chemotherapy. Continue to monitor. Hematology following. 61-year-old female admitted secondary to encephalopathy found to be related to 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 -Plan for chemo hem onc ff/ However patient can be transferred back to [facility] to resume chemo there. Hem/onc will get in touch with oncologist at [facility]. unabvle to do chemo at [place] apparently Continue working with PT. 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 with vasogenic edema and midline shift status post biopsy Continue steroids Continue to follow clinically Neurology following //Hypothyroidism, chronic Continue supplements Follows as outpatient //Hypertension Continue baseline treatment Follow blood pressures Adjust treatments as needed //Asthma No exacerbation Breathing treatments as needed //H/o ischemic CVA with possible seizure activity at the time of the CVA - no seizures since and does not take AEDs Monitor for any seizure activity Continue Keppra PO Cerebyx 100mg Q8 DCd and change to phenytoin PO continue //Hyperlipidemia Continue present treatment Follow as an outpatient //Bipolar disorder No change to baseline treatments //Obstructive sleep apnea CPAP //Generalize physical deficit May be contributory by brain edema Continue physical therapy //DVT prophylaxis //GI prophylaxis. Pepcid as patient is on steroids. Bleed risk is present SCDs Discharge Planning Continues on chemotherapy per heme oncology. DC when cleared by oncology. No oncology at [place]. Iban Cobos MD August 10, 2017 13:04
[2017-08-10] MEDS ORDERED: SODIUM CHLOR 0.9% 1000 ML INJ 1,000 ML IV ONE (13:15)
[2017-08-10] MEDS ORDERED: PILL SPLITTER OTHER PRN (15:15)
[2017-08-10] MEDS: LEUCOVORIN INJ 50 MG in SODIUM CHLORIDE 0.9% INJ 50 ML IV SCH ×2 (15:19→21:21)
[2017-08-10] MEDS: ACETAMINOPHEN 325 MG TAB PO PRN (15:19)
[2017-08-10] MEDS: QUEtiapine FUMARATE 25 MG TAB PO SCH (21:21)
[2017-08-10] MEDS: ATORVASTATIN 40 MG TAB PO SCH (21:22)
[2017-08-11] VITALS (14 sets, daily range): BP systolic 126–168; BP diastolic 68–88; PULSE 59–99; RESP 16–20; TEMP 98–98.9; O2SAT 95–99
[2017-08-11] MEDS: CHLORHEXIDINE GLUCONATE 2 % 1 PACK (2 CLOTHS) TOP SCH (03:15)
[2017-08-11] MEDS: LEUCOVORIN INJ 50 MG in SODIUM CHLORIDE 0.9% INJ 50 ML IV SCH (03:18)
[2017-08-11 05:10] LABS: AUTOMATED NEUTROPHIL # 5.6 TH/MM3 (1.8-7.7); BASOPHIL % 0.3 % (0.0-2.0); EOSINOPHIL # 0.4 TH/MM3 (0-0.4); EOSINOPHIL % 5.3 % (0.0-4.0); HEMATOCRIT 25.5 % (35.0-46.0); HEMOGLOBIN 8.8 GM/DL (11.6-15.3); LYMPH % 11.7 % (9.0-44.0); LYMPHOCYTE # 0.8 TH/MM3 (1.0-4.8); MEAN CELL VOLUME 95.2 FL (80.0-100.0); MEAN CORPUSCULAR HEMOGLOBIN 32.7 PG (27.0-34.0); MEAN CORPUSCULAR HGB CONC 34.4 % (32.0-36.0); MEAN PLATELET VOLUME 7.5 FL (7.0-11.0); MONO % 1.3 % (0.0-8.0); MONOCYTE # 0.1 TH/MM3 (0-0.9); NEUT % 81.4 % (16.0-70.0); PLATELET COUNT 258 TH/MM3 (150-450); RED BLOOD COUNT 2.68 MIL/MM3 (4.00-5.30); WHITE BLOOD COUNT 6.9 TH/MM3 (4.0-11.0)
[2017-08-11] MEDS: DEXAMETHASONE 4 MG TAB PO SCH ×4 (06:33→23:39)
[2017-08-11] MEDS: PHENYTOIN SODIUM 100 MG CAP PO SCH ×3 (06:33→20:25)
[2017-08-11] MEDS: LEVOTHYROXINE SODIUM 150 MCG TAB PO SCH (06:33)
[2017-08-11 07:15] LABS: ALBUMIN 2.5 GM/DL (3.4-5.0); ALKALINE PHOSPHATASE 100 U/L (45-117); AST (GOT) 40 U/L (15-37); BLOOD UREA NITROGEN 33 MG/DL (7-18); CALCIUM 8.2 MG/DL (8.5-10.1); GLOMERULAR FILTRATION RATE 15 ML/MIN (>89); GLUCOSE,RANDOM 117 MG/DL (74-106); TOTAL PROTEIN 5.9 GM/DL (6.4-8.2)
[2017-08-11 07:16] LABS: ALT (GPT) 73 U/L (10-53); BICARBONATE 35.7 MEQ/L (21.0-32.0); CHLORIDE 99 MEQ/L (98-107); SODIUM (NA) 142 MEQ/L (136-145); TOTAL BILIRUBIN ADULT 0.3 MG/DL (0.2-1.0)
[2017-08-11] MEDS: CHLORHEXIDINE 0.12% (ORAL KIT) 15 ML CUP MT SCH ×2 (07:33→20:00)
[2017-08-11] MEDS: RESP: ALBUTEROL 2.5 MG/IPRATROPIUM 0.5 MG NEB (SCH) NEB ×3 (07:43→23:32)
[2017-08-11] MEDS: SODIUM BICARBONATE 8.4% INJ 100 MEQ in DEXTROSE 5% IN WATE 1000ML INJ 1,000 ML IV SCH ×6 (09:16→23:39)
[2017-08-11] MEDS: LEUCOVORIN IV SCH ×3 (09:16→20:40)
[2017-08-11] MEDS: SODIUM CHLORIDE 0.9% IV SCH ×3 (09:16→20:40)
[2017-08-11] MEDS: CITALOPRAM HYDROBROMIDE 20 MG TAB PO SCH (09:18)
[2017-08-11] MEDS: FERROUS SULFATE 325 MG (65 MG ELEMENTAL IRON) TAB PO SCH (09:18)
[2017-08-11] MEDS: DOCUSATE SODIUM 50 MG/SENNA 8.6 MG TAB PO SCH ×2 (09:18→20:25)
[2017-08-11] MEDS: FAMOTIDINE 20 MG TAB PO SCH ×2 (09:18→20:26)
[2017-08-11] MEDS: ALLOPURINOL 100 MG TAB PO SCH ×2 (09:18→20:26)
[2017-08-11] MEDS: levETIRAcetam 500 MG TAB PO SCH ×2 (09:19→20:26)
[2017-08-11] MEDS: DOCUSATE SODIUM 100 MG CAP PO SCH ×2 (09:19→20:25)
[2017-08-11] MEDS ORDERED: ASPIRIN 325 MG TAB PO SCH (10:45)
--- NOTE | 2017-08-11 11:57 | HHI.PR ---
Subjective Remarks Use patient's daughter as business development assistant. Patient says she is feeling all right. No chest pain shortness of breath. No nausea or vomiting. He did have some nausea yesterday however. Denies any dysuria. Initially denies chest pain, however family notes that she did grab her shoulder at one point, however is not complaining of any chest pain Objective Vital Signs Date Time Temp Pulse Resp B/P (MAP) Pulse Ox O2 Delivery O2 Flow Rate FiO2 08/11/17 11:16 98.9 64 18 138/69 (92) 98 08/11/17 09:00 Nasal Cannula 2.00 08/11/17 08:30 98.0 99 16 130/88 (102) 99 08/11/17 07:00 59 08/11/17 04:33 98.6 65 18 132/74 (93) 95 08/11/17 04:05 64 08/11/17 00:44 69 08/11/17 00:12 68 08/11/17 00:00 98.8 67 20 126/68 (87) 97 08/10/17 21:16 99.1 65 18 134/73 (93) 99 08/10/17 21:15 Nasal Cannula 2.00 08/10/17 20:30 95 Nasal Cannula 2.00 08/10/17 20:28 68 08/10/17 17:58 Nasal Cannula 2.00 08/10/17 17:53 98.7 81 18 113/66 (82) 97 08/10/17 16:00 69 08/10/17 12:00 78 I/O 08/10/17 08/10/17 08/10/17 08/11/17 08/11/17 08/11/17 06:59 14:59 22:59 06:59 14:59 22:59 Intake Total 240 ml 2550 ml Output Total 500 ml 1350 ml Balance -260 ml 1200 ml Intake Oral 240 ml 500 ml IV Total 2050 ml Output Urine Total 500 ml 1350 ml # Voids 2 # Bowel Movements 1 Result Diagram: 08/11/17 0446 08/11/17445 Objective Remarks GENERAL: Patient sitting up in chair at bedside. Appears comfortable. Alert.. Smiling as yesterday. No change on exam. SKIN: Warm and dry. HEAD: Normocephalic. EYES: No scleral icterus. No injection or drainage. NECK: Supple, trachea midline. No JVD. CARDIOVASCULAR: Regular rate and rhythm without murmurs, gallops, or rubs. RESPIRATORY: Breath sounds equal bilaterally. No accessory muscle use. GASTROINTESTINAL: Abdomen soft, non-tender, nondistended. MUSCULOSKELETAL: No cyanosis, or edema. BACK: Nontender without obvious deformity. No CVA tenderness. A/P Assessment and Plan === 08/11/17 //New change in heart rhythm. Appears to be new evolving bundle branch block. EKG, troponins were ordered. Will confirm with oncology whether she is okay to receive aspirin. Cardiology consult. Appreciate assistance. Patient does not complain of any chest pain. //Fever. No further fevers. Likely atelectasis. Continue incentive spirometry and Acapella. Monitor. //B-cell lymphoma with brain metastasis. Patient objectively improving on methotrexate. Continue to monitor. Appreciate oncology assistance. //Acute kidney injury. Creatinine up to 3.2. FENa appears to be prerenal, however has not improved with increased fluids. Her scan ordered again. Ultrasound negative for hydronephrosis. Nephrology consultation pending.. //Anemia. Hemoglobin 8.8. No signs of bleeding. This patient is on Pepcid for GI prophylaxis. This is likely secondary to chemotherapy. Continue to monitor. Hematology following. 61-year-old female admitted secondary to encephalopathy found to be related to 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 -Plan for chemo hem onc ff/ However patient can be transferred back to [facility] to resume chemo there. Hem/onc will get in touch with oncologist at [facility]. unabvle to do chemo at [place] apparently Continue working with PT. 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 with vasogenic edema and midline shift status post biopsy Continue steroids Continue to follow clinically Neurology following //Hypothyroidism, chronic Continue supplements Follows as outpatient //Hypertension Continue baseline treatment Follow blood pressures Adjust treatments as needed //Asthma No exacerbation Breathing treatments as needed //H/o ischemic CVA with possible seizure activity at the time of the CVA - no seizures since and does not take AEDs Monitor for any seizure activity Continue Keppra PO Cerebyx 100mg Q8 DCd and change to phenytoin PO continue //Hyperlipidemia Continue present treatment Follow as an outpatient //Bipolar disorder No change to baseline treatments //Obstructive sleep apnea CPAP //Generalize physical deficit May be contributory by brain edema Continue physical therapy //DVT prophylaxis //GI prophylaxis. Pepcid as patient is on steroids. Bleed risk is present SCDs Discharge Planning Continues on chemotherapy per heme oncology. DC when cleared by oncology. Iban Cobos MD August 11, 2017 11:57
[2017-08-11 12:14] LABS: TROPONIN I LESS THAN 0.02 NG/ML (0.02-0.05)
--- NOTE | 2017-08-11 12:56 | MB ---
cc: Ralph Haque MD DATE: 08/11/2017 HISTORY OF PRESENT ILLNESS: This is a 61-year-old Egyptian speaking patient. The daughter is in the room to interpret. The patient initially came in with confusion, slurred speech, and right-sided weakness. She was found to have a brain mass with midline shift on CT scan and MRI in early to mid June. She was diagnosed with left basal ganglia mass and moderate associated vasogenic edema and hemiparesis. Neurosurgery saw, underwent biopsy. She was diagnosed with a large B-cell lymphoma. More recently, it was noted on telemetry that she had intermittent bundle branch block. We were consulted for further recommendations. According to the daughter, she has no prior significant past medical history for heart disease. She is currently asymptomatic with these episodes and unaware. PAST MEDICAL HISTORY: Hypothyroidism, stroke, hypertension, osteoporosis, asthma, obstructive sleep apnea, bipolar, non-Hodgkin's lymphoma, acid reflux, hyperlipidemia, and nephrolithiasis. ALLERGIES: NO KNOWN DRUG ALLERGIES. SOCIAL HISTORY: Denies alcohol, tobacco or drug use. REVIEW OF SYSTEMS: A 12-point review of system was performed and is negative unless otherwise as noted in the history of present illness. PHYSICAL EXAMINATION: VITAL SIGNS: Temperature is 98, pulse 64, blood pressure 138/60 mmHg. GENERAL: Alert and oriented x 3 in no acute distress. HEENT: Exam shows pupils reactive to light and accommodation. Extraocular movements are intact. No elevation of jugular venous distention. No thyromegaly. No lymphadenopathy. No carotid bruits. LUNGS: Clear to auscultation bilaterally. CARDIOVASCULAR: Regular, without murmurs, rubs or gallops. ABDOMEN: Nontender, nondistended with good bowel sounds. No hepatosplenomegaly. EXTREMITIES: Show no clubbing, cyanosis or edema. Good peripheral pulses. NEUROLOGIC: Cranial nerves intact. Motor and strength grossly intact. LABORATORY DATA: WBC 6.9, hemoglobin is 8.8, platelet count is 258. INR is 1. Sodium 142, potassium 4.2, BUN is 33, creatinine 3.2. ASSESSMENT: 1. Lymphoma. 2. Intermittent wide complex rhythm. PLAN: Electrocardiogram reviewed along with telemetry. The patient has intermittent idioventricular rhythm without symptoms. Looking at her medication list, she is not on any AV jacquelyn blocking agents. She is currently asymptomatic and the escape rhythm is a heart rate of about 50 or so beats per minute. At this point, I do think we need to do anything further. She does have a history of cancer with metastasis and not a good candidate for potentially even anything invasive. So we are going to proceed with any workup. We will follow her heart rhythm. If she has symptoms, we could consider a transthoracic echocardiogram to document underlying structural heart disease, but at this point, we will proceed with a conservative approach. Call with any further questions. MD PAPI Hubbard/FRANCK , 11:54 AM , 12:55 PM
--- NOTE | 2017-08-11 13:36 | PD.ONC.PN ---
Subjective Subjective Remarks Afebrile overnight. Patient resting in bed in nad. Daughters at bedside. Patient remains confused. Doesn't remember where she is. Objective Data Date Time Temp Pulse Resp B/P (MAP) Pulse Ox O2 Delivery O2 Flow Rate FiO2 08/11/17 11:16 98.9 64 18 138/69 (92) 98 08/11/17 09:00 Nasal Cannula 2.00 08/11/17 08:30 98.0 99 16 130/88 (102) 99 08/11/17 07:00 59 08/11/17 04:33 98.6 65 18 132/74 (93) 95 08/11/17 04:05 64 08/11/17 00:44 69 08/11/17 00:12 68 08/11/17 00:00 98.8 67 20 126/68 (87) 97 08/10/17 21:16 99.1 65 18 134/73 (93) 99 08/10/17 21:15 Nasal Cannula 2.00 08/10/17 20:30 95 Nasal Cannula 2.00 08/10/17 20:28 68 08/10/17 17:58 Nasal Cannula 2.00 08/10/17 17:53 98.7 81 18 113/66 (82) 97 08/10/17 16:00 69 Result Diagram: 08/11/17 0446 08/11/17 0446 Laboratory Results Laboratory Tests Test 08/10/17 15:15 08/10/17 21:33 08/11/17 04:46 08/11/17 04:55 Urine pH 8.5 8.5 White Blood Count 6.9 TH/MM3 Red Blood Count 2.68 MIL/MM3 Hemoglobin 8.8 GM/DL Hematocrit 25.5 % Mean Corpuscular Volume 95.2 FL Mean Corpuscular Hemoglobin 32.7 PG Mean Corpuscular Hemoglobin Concent 34.4 % Red Cell Distribution Width 14.0 % Platelet Count 258 TH/MM3 Mean Platelet Volume 7.5 FL Neutrophils (%) (Auto) 81.4 % Lymphocytes (%) (Auto) 11.7 % Monocytes (%) (Auto) 1.3 % Eosinophils (%) (Auto) 5.3 % Basophils (%) (Auto) 0.3 % Neutrophils # (Auto) 5.6 TH/MM3 Lymphocytes # (Auto) 0.8 TH/MM3 Monocytes # (Auto) 0.1 TH/MM3 Eosinophils # (Auto) 0.4 TH/MM3 Basophils # (Auto) 0.0 TH/MM3 CBC Comment DIFF FINAL Differential Comment Blood Urea Nitrogen 33 MG/DL Creatinine 3.20 MG/DL Random Glucose 117 MG/DL Total Protein 5.9 GM/DL Albumin 2.5 GM/DL Calcium Level 8.2 MG/DL Alkaline Phosphatase 100 U/L Aspartate Amino Transf (AST/SGOT) 40 U/L Alanine Aminotransferase (ALT/SGPT) 73 U/L Total Bilirubin 0.3 MG/DL Sodium Level 142 MEQ/L Potassium Level 4.2 MEQ/L Chloride Level 99 MEQ/L Carbon Dioxide Level 35.7 MEQ/L Anion Gap 7 MEQ/L Estimat Glomerular Filtration Rate 15 ML/MIN Test 08/11/17 09:00 08/11/17 11:20 08/11/17 12:30 Total Creatine Kinase 61 U/L Troponin I LESS THAN 0.02 NG/ML Phenytoin (Dilantin) Level 3.9 MCG/ML Urine pH 8.5 Administered Medications Medications (Trade) Dose Ordered Sig/Thaddeus Route PRN Reason Start Time Stop Time Status Last Admin Dose Admin Senna/Docusate Sodium (Maddy-Colace) 1 tab BID PO 07/15/17 09:00 08/11/17 09:18 Magnesium Hydroxide (Milk Of Magnesia Liq) 30 ml Q12H PRN PO Mild constipation 07/14/17 22:15 08/08/17 10:03 Sennosides (Senokot) 17.2 mg Q12H PRN PO Moderate constipation 07/14/17 22:15 07/31/17 22:58 Bisacodyl (Dulcolax Supp) 10 mg DAILY PRN RECTAL SEVERE CONSITIPATION/ IF NPO 07/14/17 22:15 08/07/17 22:05 Lactulose (Lactulose Liq) 30 ml DAILY PRN PO SEVERE CONSITIPATION/ IF PO 07/14/17 22:15 08/02/17 09:39 Albuterol Sulfate (Albuterol Neb) 2.5 mg Q4HR NEB PRN NEB sob/wheezing 07/14/17 22:30 07/14/17 23:41 Allopurinol (Zyloprim) 100 mg BID PO 07/15/17 09:00 08/11/17 09:18 Atorvastatin Calcium (Lipitor) 40 mg HS PO 07/15/17 21:00 08/10/17 21:22 Citalopram Hydrobromide (CeleXA) 20 mg DAILY PO 07/15/17 09:00 08/11/17 09:18 Levothyroxine Sodium (Synthroid) 150 mcg DAILY@0700 PO 07/15/17 07:00 08/11/17 06:33 Quetiapine Fumarate (SEROquel) 25 mg HS PO 07/15/17 21:00 08/10/17 21:21 Chlorhexidine Gluconate (Peridex 0.12% Liq) 15 ml BID@08,20 MT 07/16/17 20:00 08/01/17 20:00 Chlorhexidine Gluconate (Chlorhexidine 2% Cloth) Taper DAILY@04 TOP 07/17/17 04:00 07/13/18 03:59 07/29/17 04:00 Heparin Sodium (Porcine) (Heparin Central Flush) See Protocol DAILY IV FLUSH 07/17/17 09:00 08/07/17 13:13 Heparin Sodium (Porcine) (Heparin Central Flush) See Protocol UNSCH PRN IV FLUSH SEE PROTOCOL TABLE 07/16/17 19:30 08/09/17 05:52 Sodium Chloride (NS Flush) See Protocol UNSCH PRN IV FLUSH FLUSH AFTER USING IV ACCESS 07/16/17 19:30 08/06/17 10:29 Docusate Sodium (Colace) 100 mg BID PO 07/17/17 21:00 08/11/17 09:19 Ondansetron HCl (Zofran Inj) 4 mg Q6H PRN IV PUSH NAUSEA OR VOMITING 07/17/17 10:45 08/09/17 06:03 Acetaminophen/ Hydrocodone Bitart ([place] 10-325 Mg) 1 tab Q4H PRN PO PAIN SCALE 1 TO 5 07/17/17 11:45 07/30/17 04:36 Acetaminophen/ Hydrocodone Bitart ([place] 10-325 Mg) 2 tab Q4H PRN PO PAIN SCALE 6 TO 10 07/17/17 11:45 07/24/17 15:43 Morphine Sulfate (Morphine Inj) 4 mg Q2H PRN IV PUSH PAIN SCALE 7 TO 10 07/17/17 11:45 07/20/17 09:44 Acetaminophen (Tylenol) 650 mg Q4H PRN PO TEMPERATURE > 101.5 F 07/17/17 11:45 08/10/17 15:19 Phenytoin (Dilantin) 100 mg Q8HR PO 07/22/17 14:00 Future Hold 07/25/17 13:35 Ferrous Sulfate (Ferrous Sulfate) 325 mg DAILY PO 07/24/17 09:00 08/11/17 09:18 Dexamethasone (Decadron) 4 mg Q6HR PO 08/01/17 18:00 08/11/17 11:55 Levetriacetam (Keppra) 1,000 mg Q12HR PO 08/02/17 21:00 08/11/17 09:19 Phenytoin (Dilantin) 100 mg Q8HR PO 08/02/17 14:00 08/11/17 06:33 Albuterol/ Ipratropium (Duoneb Neb) 1 ampule Q8HR NEB NEB 08/08/17 16:00 08/10/17 23:37 Famotidine (Pepcid) 10 mg BID PO 08/11/17 09:00 08/11/17 09:18 Leucovorin Calcium 100 mg/ Sodium Chloride 50 ml @ 400 mls/hr Q6H IV 08/11/17 09:00 08/12/17 15:01 08/11/17 09:16 Sodium Bicarbonate 100 meq/Dextrose 1,100 ml @ 150 mls/hr Q7H20M IV 08/11/17 10:00 08/11/17 09:16 Objective Remarks GENERAL: Middle aged female, lying supine in hospital chair resting. SKIN: Warm and dry. HEAD: Normocephalic. EYES: No injection or drainage. NECK: Supple, trachea midline. CARDIOVASCULAR: Regular rate and rhythm RESPIRATORY: anterior lewis clear. on 2L O2 via NC GASTROINTESTINAL: Abdomen soft, non-tender, nondistended. EXTREMITIES: No cyanosis NEUROLOGICAL: awake. oriented to self only. right sided paresis. 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 received 6 cycles of R-CHOP under the direction of Dr. Alves at [facility] in [place] (was in remission) (2) Bundle branch block ICD Codes: I45.4 - Nonspecific intraventricular block Plan: --appreciate cardiology assistance. --recommend waiting until methotrexate levels are <0.01 before starting ASA therapy as there is a potential for interaction. (3) Renal insufficiency ICD Codes: N28.9 - Disorder of kidney and ureter, unspecified Plan: --consult nephrology (4) Confusion ICD Codes: R41.0 - Disorientation, unspecified Assessment 61y/o female with OVEN STRIPPER lymphoma. Plan 1. consult nephrology for worsening creatinine 2. continue D5 + 100meq sodium bicarbonate @ 150cc/hr 3. check urine pH 3x daily 4. increase leucovorin to 100mg IV q 6 hours. Attending Statement The exam, history, and the medical decision-making described in the above note were completed with the assistance of the mid-level provider. I reviewed and agree with the findings presented. I attest that I had a [id number] encounter with the patient on the same day, and personally performed and documented my assessment and findings in the medical record. 62 yoF with OVEN STRIPPER relapse of lymphoma. No evidence of systemic disease. Daughter reports that mental status is improving; mental status is best in morning. Mother looks forward to working with PT. Rising creatinine. IVF, goal positive , bicarb, continue leucovorin, methotrexate. Problem Qualifiers (1) B-cell lymphoma: Qualified Codes: C85.10 - Unspecified B-cell lymphoma, unspecified site Yin Still August 11, 2017 13:36 Evy Melendez MD August 12, 2017 07:41
--- NOTE | 2017-08-11 16:34 | MB ---
cc: Brian Winters MD DATE: 08/11/2017 REASON FOR CONSULTATION: Acute kidney injury with elevated BUN and creatinine. HISTORY OF PRESENT ILLNESS: This is a 62-year-old female with past medical history of hypertension, chronic obstructive pulmonary disease, hypothyroidism, history of non-Hodgkin's lymphoma, hyperlipidemia, cerebrovascular accident, was admitted on 07/14/2017 because of brain mass and possibility of subacute hemorrhage. I was called to see the patient because of elevated BUN and creatinine. The patient has a creatinine of 0.7 on admission which stayed in the same range until 2 days ago when it went up to 0.9 and now it is going up and it is 3.2. The patient's daughter, who is the one giving most of the history, told me that the patient never had any problem with the kidneys before except she had a left ureteral stent done during her last chemotherapy and at that time there was some blockage in the urine flow and the stent was removed and she has been followed by Urology. The patient lives in [place] and she was transferred here mainly because of the neurosurgical problem. The patient is not eating well because her appetite is not very good. She does not have any nausea or vomiting. There is no history of diarrhea. She has constipation. PAST MEDICAL HISTORY: Hypertension, hypothyroidism, history of cerebrovascular accident, non-Hodgkin's lymphoma, hyperlipidemia, chronic obstructive pulmonary disease. REVIEW OF SYSTEMS: The patient is sitting in the chair. There is mild shortness of breath. There is no headache, dizziness or blurring of vision. She has some right-sided weakness because of a stroke. No nausea or vomiting. She has decreased appetite. No history of diarrhea. No dysuria or hematuria, but according to the daughter, the urine output is slightly decreased today. SOCIAL HISTORY: The patient has no history of smoking or alcoholism. FAMILY HISTORY: Noncontributory. ALLERGIES: SHE HAS NO KNOWN DRUG ALLERGIES. MEDICATIONS: 1. Currently she is on IV fluid with sodium bicarbonate at 150 an hour. 2. Maddy-Colace 1 tablet b.i.d. 3. Allopurinol 100 mg b.i.d. 4. Colace 100 mg b.i.d. 5. Pepcid 10 mg b.i.d. 6. Celexa 20 mg daily. 7. Synthroid 150 mcg daily. 8. Lipitor 40 mg at bedtime. 9. Seroquel 25 mg at bedtime. 10. DuoNeb nebulizer. 11. Keppra 1000 mg q. 12 hours. 12. Decadron 4 mg q. 6 hours. 13. Dilantin 100 mg q.8 hours. 14. Narcan as needed. 15. Zofran as needed. 16. Morphine as needed. PHYSICAL EXAMINATION: GENERAL: The patient is awake, alert. She is sitting in the chair, not in acute distress. VITAL SIGNS: Her blood pressure is 138/69. She had some hypotensive episode and the lowest recorded on 08/08/2017 was 89/48. HEENT: Pupils are mid-constricted. Nonicteric sclerae. Conjunctivae pale. NECK: Supple. JVD is not elevated. LUNGS: The patient has bilateral good air entry with occasional wheezing. HEART: S1, S2. Regular rhythm. ABDOMEN: Distended, soft, lax. There is no tenderness. EXTREMITIES: She has mild edema. INVESTIGATIONS: WBC count is 6.9, hemoglobin 8.8, platelet count of 258, neutrophils 81.4%, eosinophils 5.3%. Sodium 142, potassium 4.2, chloride 99, bicarbonate 35.7, BUN 33, creatinine 3.2, calcium 8.2. AST is 40, ALT is 73. Troponin I is less than 0.02. INR is 1.0. Urinalysis showing that there is no proteinuria. This was done yesterday. IMAGING STUDIES: The patient had ultrasound of the kidneys done yesterday which showed both kidneys are normal in size and there is some hypoechoic lesion just superior to the right kidney, possibly in the right adrenal gland, bilateral renal cysts, simple cyst in the left kidney lower pole. Chest x-ray was done which shows bilateral basilar atelectasis. ASSESSMENT AND PLAN: 1. Acute kidney injury. 2. Non-Hodgkin's lymphoma. 3. Hypertension. 4. History of stroke. 5. Anemia. The patient has acute kidney injury. She is nonoliguric. Differential diagnosis will be either acute tubular necrosis or possibility of chemotherapy-induced renal damage, likely to be prerenal or possibility of acute interstitial nephritis. The patient is currently getting IV fluid with sodium bicarbonate and this is one of the treatments for urine alkalinization for methotrexate toxicity. Will increase the urine pH which increases the solubility of methotrexate. The patient is nonoliguric. Keep her well hydrated. I will check the urine sodium and eosinophils. Avoid any nephrotoxins. Her phosphorus was not very high, but I will recheck it again, unlikely to be having any tumor lysis but I will also check the uric acid. She is already on allopurinol. Thank you for the consultation. I will follow the patient while she is in the hospital. MD BONNIE Cummings/EDDIE , 03:50 PM , 04:33 PM
[2017-08-11 18:35] LABS: TROPONIN I LESS THAN 0.02 NG/ML (0.02-0.05)
--- NOTE | 2017-08-11 19:25 | EKG ---
Date Performed: 08/11/2017 Time Performed: 10:52:18 PTAGE: 62 years EKG: Sinus rhythm with periods of accelerated idioventricular rythm. Ant/septal and lateral T wave changes are nonspec ific when compared to prior tracing, pateint now has episodes of idioventricular rythm.clinical corre lation requested. Borderline ECG PREVIOUS TRACING : 07/17/2017 06.29 DOCTOR: Jaunary Long Interpretating Date/Time 08/11/2017 19:23:49
[2017-08-11] MEDS: QUEtiapine FUMARATE 25 MG TAB PO SCH (20:25)
[2017-08-11] MEDS: ATORVASTATIN 40 MG TAB PO SCH (20:26)
[2017-08-11 23:00] LABS: TROPONIN I LESS THAN 0.02 NG/ML (0.02-0.05)
[2017-08-12] VITALS (10 sets, daily range): BP systolic 119–152; BP diastolic 67–86; PULSE 53–60; RESP 16–20; TEMP 98–99.2; O2SAT 95–98
[2017-08-12] MEDS: CHLORHEXIDINE GLUCONATE 2 % 1 PACK (2 CLOTHS) TOP SCH (01:57)
[2017-08-12] MEDS: SODIUM CHLORIDE 0.9% IV SCH ×4 (03:58→20:37)
[2017-08-12] MEDS: LEUCOVORIN IV SCH ×4 (03:58→20:37)
[2017-08-12] MEDS: DEXAMETHASONE 4 MG TAB PO SCH ×4 (05:21→22:57)
[2017-08-12] MEDS: PHENYTOIN SODIUM 100 MG CAP PO SCH ×3 (05:22→20:37)
[2017-08-12] MEDS: LEVOTHYROXINE SODIUM 150 MCG TAB PO SCH (05:22)
[2017-08-12] MEDS: RESP: ALBUTEROL 2.5 MG/IPRATROPIUM 0.5 MG NEB (SCH) NEB ×2 (07:33→15:52)
[2017-08-12 07:53] LABS: HEMATOCRIT 24.9 % (35.0-46.0); HEMOGLOBIN 8.4 GM/DL (11.6-15.3); MEAN CELL VOLUME 94.9 FL (80.0-100.0); MEAN CORPUSCULAR HGB CONC 33.7 % (32.0-36.0); MEAN PLATELET VOLUME 7.2 FL (7.0-11.0); PLATELET COUNT 296 TH/MM3 (150-450); RED BLOOD COUNT 2.62 MIL/MM3 (4.00-5.30); WHITE BLOOD COUNT 6.2 TH/MM3 (4.0-11.0)
[2017-08-12] MEDS: CHLORHEXIDINE 0.12% (ORAL KIT) 15 ML CUP MT SCH ×2 (08:00→20:00)
[2017-08-12 08:20] LABS: ALBUMIN 2.5 GM/DL (3.4-5.0); ALKALINE PHOSPHATASE 96 U/L (45-117); ALT (GPT) 59 U/L (10-53); AST (GOT) 34 U/L (15-37); BLOOD UREA NITROGEN 35 MG/DL (7-18); CALCIUM 8.2 MG/DL (8.5-10.1); CHLORIDE 98 MEQ/L (98-107); CREATININE 3.01 MG/DL (0.50-1.00); GLOMERULAR FILTRATION RATE 16 ML/MIN (>89); GLUCOSE,RANDOM 106 MG/DL (74-106); SODIUM (NA) 141 MEQ/L (136-145); TOTAL BILIRUBIN ADULT 0.3 MG/DL (0.2-1.0); TOTAL PROTEIN 5.9 GM/DL (6.4-8.2)
[2017-08-12] MEDS: DOCUSATE SODIUM 100 MG CAP PO SCH ×2 (11:34→20:37)
[2017-08-12] MEDS: levETIRAcetam 500 MG TAB PO SCH ×2 (11:34→20:36)
[2017-08-12] MEDS: FERROUS SULFATE 325 MG (65 MG ELEMENTAL IRON) TAB PO SCH (11:35)
[2017-08-12] MEDS: ALLOPURINOL 100 MG TAB PO SCH ×2 (11:35→20:36)
[2017-08-12] MEDS: FAMOTIDINE 20 MG TAB PO SCH ×2 (11:35→20:37)
[2017-08-12] MEDS: CITALOPRAM HYDROBROMIDE 20 MG TAB PO SCH (11:36)
[2017-08-12] MEDS: DOCUSATE SODIUM 50 MG/SENNA 8.6 MG TAB PO SCH ×2 (11:36→20:37)
--- NOTE | 2017-08-12 13:45 | PD.ONC.PN ---
Subjective Subjective Remarks Afebrile overnight. patient resting in bed. she is moving her right arm and right leg a bit more today. she knows who she is, but still has some confusion about where she is. Objective Data Date Time Temp Pulse Resp B/P (MAP) Pulse Ox O2 Delivery O2 Flow Rate FiO2 08/12/17 13:11 99.2 60 20 119/67 (84) 98 08/12/17 07:57 98.6 56 18 123/69 (87) 95 08/12/17 07:30 98 Nasal Cannula 5.00 08/12/17 04:00 98.0 60 16 137/77 (97) 95 08/12/17 04:00 53 08/12/17 00:00 60 08/12/17 00:00 98.6 59 16 152/86 (108) 95 08/11/17 23:37 97 Nasal Cannula 2.00 08/11/17 20:00 Nasal Cannula 2.00 08/11/17 20:00 98.7 60 18 147/80 (102) 98 08/11/17 20:00 59 08/11/17 15:43 98.3 62 18 168/70 (102) 97 08/11/17 15:00 65 08/12/17 08/12/17 08/12/17 07:00 15:00 23:00 Intake Total 240 ml Output Total 900 ml Balance -900 ml 240 ml Result Diagram: 08/12/17 0740 08/12/17 0740 Laboratory Results Laboratory Tests Test 08/11/17 13:50 08/11/17 16:30 08/11/17 16:56 08/11/17 20:27 Phenytoin (Dilantin) Level 3.1 MCG/ML Total Creatine Kinase 57 U/L Troponin I LESS THAN 0.02 NG/ML Urine Random Sodium 108 MEQ/L Urine pH 8.5 Urine Eosinophils NONE SEEN /HPF Test 08/11/17 21:45 08/12/17 06:50 08/12/17 07:40 Total Creatine Kinase 56 U/L Troponin I LESS THAN 0.02 NG/ML Urine pH 8.5 White Blood Count 6.2 TH/MM3 Red Blood Count 2.62 MIL/MM3 Hemoglobin 8.4 GM/DL Hematocrit 24.9 % Mean Corpuscular Volume 94.9 FL Mean Corpuscular Hemoglobin 32.0 PG Mean Corpuscular Hemoglobin Concent 33.7 % Red Cell Distribution Width 14.0 % Platelet Count 296 TH/MM3 Mean Platelet Volume 7.2 FL Blood Urea Nitrogen 35 MG/DL Creatinine 3.01 MG/DL Random Glucose 106 MG/DL Total Protein 5.9 GM/DL Albumin 2.5 GM/DL Calcium Level 8.2 MG/DL Alkaline Phosphatase 96 U/L Aspartate Amino Transf (AST/SGOT) 34 U/L Alanine Aminotransferase (ALT/SGPT) 59 U/L Total Bilirubin 0.3 MG/DL Sodium Level 141 MEQ/L Potassium Level 4.0 MEQ/L Chloride Level 98 MEQ/L Carbon Dioxide Level 34.0 MEQ/L Anion Gap 9 MEQ/L Estimat Glomerular Filtration Rate 16 ML/MIN Methotrexate Level 0.12 UMOL/L Administered Medications Medications (Trade) Dose Ordered Sig/Thaddeus Route PRN Reason Start Time Stop Time Status Last Admin Dose Admin Senna/Docusate Sodium (Maddy-Colace) 1 tab BID PO 07/15/17 09:00 08/12/17 11:36 Magnesium Hydroxide (Milk Of Magnesia Liq) 30 ml Q12H PRN PO Mild constipation 07/14/17 22:15 08/08/17 10:03 Sennosides (Senokot) 17.2 mg Q12H PRN PO Moderate constipation 07/14/17 22:15 07/31/17 22:58 Bisacodyl (Dulcolax Supp) 10 mg DAILY PRN RECTAL SEVERE CONSITIPATION/ IF NPO 07/14/17 22:15 08/07/17 22:05 Lactulose (Lactulose Liq) 30 ml DAILY PRN PO SEVERE CONSITIPATION/ IF PO 07/14/17 22:15 08/02/17 09:39 Albuterol Sulfate (Albuterol Neb) 2.5 mg Q4HR NEB PRN NEB sob/wheezing 07/14/17 22:30 07/14/17 23:41 Allopurinol (Zyloprim) 100 mg BID PO 07/15/17 09:00 08/12/17 11:35 Atorvastatin Calcium (Lipitor) 40 mg HS PO 07/15/17 21:00 08/11/17 20:26 Citalopram Hydrobromide (CeleXA) 20 mg DAILY PO 07/15/17 09:00 08/12/17 11:36 Levothyroxine Sodium (Synthroid) 150 mcg DAILY@0700 PO 07/15/17 07:00 08/12/17 05:22 Quetiapine Fumarate (SEROquel) 25 mg HS PO 07/15/17 21:00 08/11/17 20:25 Chlorhexidine Gluconate (Peridex 0.12% Liq) 15 ml BID@08,20 MT 07/16/17 20:00 08/01/17 20:00 Chlorhexidine Gluconate (Chlorhexidine 2% Cloth) Taper DAILY@04 TOP 07/17/17 04:00 07/13/18 03:59 07/29/17 04:00 Heparin Sodium (Porcine) (Heparin Central Flush) See Protocol DAILY IV FLUSH 07/17/17 09:00 08/12/17 11:33 Heparin Sodium (Porcine) (Heparin Central Flush) See Protocol UNSCH PRN IV FLUSH SEE PROTOCOL TABLE 07/16/17 19:30 08/09/17 05:52 Sodium Chloride (NS Flush) UNSCH PRN IV FLUSH SEE PROTOCOL TABLE 07/16/17 19:30 08/12/17 11:34 Sodium Chloride (NS Flush) See Protocol UNSCH PRN IV FLUSH FLUSH AFTER USING IV ACCESS 07/16/17 19:30 08/06/17 10:29 Docusate Sodium (Colace) 100 mg BID PO 07/17/17 21:00 08/12/17 11:34 Ondansetron HCl (Zofran Inj) 4 mg Q6H PRN IV PUSH NAUSEA OR VOMITING 07/17/17 10:45 08/09/17 06:03 Acetaminophen/ Hydrocodone Bitart ([place] 10-325 Mg) 1 tab Q4H PRN PO PAIN SCALE 1 TO 5 07/17/17 11:45 07/30/17 04:36 Acetaminophen/ Hydrocodone Bitart ([place] 10-325 Mg) 2 tab Q4H PRN PO PAIN SCALE 6 TO 10 07/17/17 11:45 07/24/17 15:43 Morphine Sulfate (Morphine Inj) 4 mg Q2H PRN IV PUSH PAIN SCALE 7 TO 10 07/17/17 11:45 07/20/17 09:44 Acetaminophen (Tylenol) 650 mg Q4H PRN PO TEMPERATURE > 101.5 F 07/17/17 11:45 5/14/18 15:19 Phenytoin (Dilantin) 100 mg Q8HR PO 07/22/17 14:00 Future Hold 07/25/17 13:35 Ferrous Sulfate (Ferrous Sulfate) 325 mg DAILY PO 07/24/17 09:00 08/12/17 11:35 Dexamethasone (Decadron) 4 mg Q6HR PO 08/01/17 18:00 08/12/17 11:35 Levetriacetam (Keppra) 1,000 mg Q12HR PO 08/02/17 21:00 08/12/17 11:34 Phenytoin (Dilantin) 100 mg Q8HR PO 08/02/17 14:00 08/12/17 05:22 Albuterol/ Ipratropium (Duoneb Neb) 1 ampule Q8HR NEB NEB 08/08/17 16:00 08/12/17 07:33 Famotidine (Pepcid) 10 mg BID PO 08/11/17 09:00 08/12/17 11:35 Leucovorin Calcium 100 mg/ Sodium Chloride 50 ml @ 400 mls/hr Q6H IV 08/11/17 09:00 08/14/17 03:01 08/12/17 11:46 Sodium Bicarbonate 100 meq/Dextrose 1,100 ml @ 150 mls/hr Q7H20M IV 08/11/17 10:00 08/11/17 23:39 Objective Remarks GENERAL: Middle aged female, supine in bed resting. SKIN: Warm and dry. HEAD: Normocephalic. EYES: No injection or drainage. NECK: Supple, trachea midline. CARDIOVASCULAR: Regular rate and rhythm RESPIRATORY: anterior lewis clear. on 5L O2 via NC GASTROINTESTINAL: Abdomen soft, non-tender, nondistended. EXTREMITIES: No cyanosis NEUROLOGICAL: awake. weakness noted in right arm and right leg. 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 received 6 cycles of R-CHOP under the direction of Dr. Alves at [facility] in [place] (was in remission) (2) Bundle branch block ICD Codes: I45.4 - Nonspecific intraventricular block Plan: --appreciate cardiology assistance. --recommend waiting until methotrexate levels are <0.01 before starting ASA therapy as there is a potential for interaction. 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 Plan 1. continue D5 + 100meq sodium bicarbonate @ 150cc/hr 2. continue leucovorin until methotrexate levels less than 0.01. 3. continue physical therapy 4. monitor urine pH, monitor electrolytes and renal function. appreciate nephrology assistance. Attending Statement The exam, history, and the medical decision-making described in the above note were completed with the assistance of the mid-level provider. I reviewed and agree with the findings presented. I attest that I had a [id number] encounter with the patient on the same day, and personally performed and documented my assessment and findings in the medical record. 62 yoF with DOCTOR OF CHIROPRACTIC lymphoma s/p HD mtx and rituximab. Family reports improvement in mental status and movement in right side. ARF. Continue to follow creatinine. Continue with leucovorin and sodium bicarb , net positive, urine alkalinization. Due to ARF will continue leucovorin until methotrexate level is less than 0.05 micromol. Problem Qualifiers (1) B-cell lymphoma: Qualified Codes: C85.10 - Unspecified B-cell lymphoma, unspecified site Yin Still August 12, 2017 13:45 Evy Melendez MD August 13, 2017 08:16
--- NOTE | 2017-08-12 18:21 | HHI.PR ---
Subjective Remarks Patient resting in bed getting cleaned by the FELT PULLER Daughter told me patient having progress being able to raise her right upper extremity against gravity Objective Vitals Vital Signs Date Time Temp Pulse Resp B/P (MAP) Pulse Ox O2 Delivery O2 Flow Rate FiO2 08/12/17 16:46 98.2 57 18 128/73 (91) 97 08/12/17 13:11 99.2 60 20 119/67 (84) 98 08/12/17 07:57 98.6 56 18 123/69 (87) 95 08/12/17 07:30 98 Nasal Cannula 5.00 08/12/17 04:00 98.0 60 16 137/77 (97) 95 08/12/17 04:00 53 08/12/17 00:00 60 08/12/17 00:00 98.6 59 16 152/86 (108) 95 08/11/17 23:37 97 Nasal Cannula 2.00 08/11/17 20:00 Nasal Cannula 2.00 08/11/17 20:00 98.7 60 18 147/80 (102) 98 08/11/17 20:00 59 I/O 08/11/17 08/11/17 08/11/17 08/12/17 08/12/17 08/12/17 06:59 14:59 22:59 06:59 14:59 22:59 Intake Total 840 ml 240 ml Output Total 1600 ml 900 ml Balance -760 ml -900 ml 240 ml Intake Oral 840 ml 240 ml Output Urine Total 1600 ml 900 ml # Voids 2 2 # Bowel Movements 0 Result Diagram: 08/12/17 0740 08/12/17 0740 Objective Remarks GENERAL: This is a well-nourished, well-developed patient, in no apparent distress. CARDIOVASCULAR: RRR, no gallops, or rubs. RESPIRATORY: Fair air entry bilaterally. No W, R, or R GASTROINTESTINAL: Abdomen soft, non-tender, nondistended. Positive bowel sounds MUSCULOSKELETAL: Extremities without clubbing, cyanosis, or edema. Pedal pulses appreciated NEUROLOGICAL: Awake and alert. Able to speak in [place] Procedures Date of Surgery: Jul 17, 2017 Preoperative Diagnosis: Left basal ganglia brain mass Postoperative Diagnosis: Left basal ganglia HOSE TURNER lymphoma Procedure: Stereotactic biopsy of Left basal ganglia brain mass Anesthesia: general endotracheal Surgeon: Miguel Sutton Liquor Runner(s): Eva Smith Operation and Findings: INDICATIONS FOR THE PROCEDURE Ms Sun is a 61 year-old female who presented with neurological findings of right sided weakness and was found to have left basal ganglia enhancing mass. The lesions had abnormal signal intensity and and characteristics consistent with a possible neoplastic, inflammatory, or infectious process. A stereotactic biopsy of the lesions was indicated. The [id number] details of the procedure, its indications, alternatives, risks and potential complications were fully discussed with the patient. The patient fully understood. All questions were answered. No guarantees were given. The patient voiced requesting the procedure and provided informed consents. The patient was offered the alternative of not having aggressive management. DETAILS OF THE SURGICAL PROCEDURE Preoperative planning Prior to the surgery the patient underwent an MRI of the brain according to the stereotactic protocol. The information from the MRI scan was transferred to the operating room via the hospital network and the preoperative planning of the lesion was made. A julia was made at the patients operative site according to the hospital policy. Surgical positioning The patient was then brought to the operating room. After induction of general anesthesia endotracheal intubation was performed. Bkilateral carlos hose and sequential compression devices were placed and kept throughout the procedure. The patient was positioned supine on a 3080 table over a soft mattress. All pressure points were carefully padded with an egg crate mattress. The eyes were tapped shut after ointment was applied by the anesthesiologist to prevent corneal abrasion. A Shannon hugger was placed over the exposed lower body to maintain control of the core body temperature. The head was held in rigid fixation using the Bravo head pastry chef. Intraoperative registration The rigid body was attached to the Bravo headholder. Intraoperative registration was then performed with the [facility]. The lesion was located in the three planes, sagittal, axial and coronal. An entry point was selected in the scalp. Surgical Approach and stereotactic biopsy The skin was prepped and draped in the usual sterile fashion. A linear incision in the left frontal region selected by the planning was outlined. The area was infiltrated with 1% lidocaine with epinephrine 1:100,000 dilution. A skin incision was made with a #10 blade. Small subgaleal bleeders were controlled with a bipolar a small self-retaining retractor was placed in the incision. The fascia and muscle were incised with a Bovie and retracted at each side. The Midas Freddy was brought into the field and a bur hole was made with an AM-8 drill bit. The duramatter was coagulated with a bipolar and opening increased for pressure and a very small corticotomy performed. At this point of the procedure the stereotactic biopsy arm was brought into the field and secured to the head pastry chef. The postal service clerk was brought into the field, and the trajectory on the biopsy arm was created following the previously selected trajectory. Then, a stereotactic needle was carefully inserted into the brain at the center of the lesion and by gentle aspiration two initial biopsies were obtained, one of which was sent to the lab for frozen section, while the second kept for permanent histological annalysis. Meanwhile, additional specimens were obtained for permanent histologic analysis. At this point in the procedure , after waiting for awhile, the frozen section was called in and reported as lymphoma. The biopsy needle was carefully removed and the stereotactic device was removed. The incision was irrigated with a large amount of saline. A piece of Gelfoam was placed over the surface of the brain and a bur hole cover was placed. The incision was closed in layers. 3-0 Vicryl with interrupted sutures were used to close the fascial layers and galea. The skin was closed with chip. A sterile dressing was applied. At the end of the procedure the sponge, needle and instrument counts were all correct. Estimated blood loss was minimal. No blood transfusion was given. The patient received preoperative prophylactic antibiotics. No intraoperative complications occurred. The patient was transferred to the recovery room in stable condition. Miguel Sutton MD Jul 17, 2017 17:40 A/P Problem List: (1) Brain mass ICD Code: G93.9 - Disorder of brain, unspecified (2) Dementia without behavioral disturbance ICD Code: F03.90 - Unspecified dementia without behavioral disturbance (3) Hypertension ICD Code: I10 - Essential (primary) hypertension (4) Hyperlipidemia ICD Code: E78.5 - Hyperlipidemia, unspecified (5) Seizure ICD Code: R56.9 - Unspecified convulsions Assessment and Plan === 08/11/17 //New bundle branch block. EKG, troponins Cardiology consult. Appreciate assistance. Patient does not complain of any chest pain. //Fever. No further fevers. Likely atelectasis. Continue incentive spirometry and Acapella. Monitor. //B-cell lymphoma with brain metastasis. Patient objectively improving on methotrexate. Continue to monitor. Appreciate oncology assistance. //Acute kidney injury. Creatinine up to 3.2. FENa appears to be prerenal, however has not improved with increased fluids. Her scan ordered again. Ultrasound negative for hydronephrosis. Nephrology consultation pending.. //Anemia. Hemoglobin 8.8. No signs of bleeding. This patient is on Pepcid for GI prophylaxis. This is likely secondary to chemotherapy. Continue to monitor. Hematology following. 08/12: Continue current care, follow with oncology, Repeat CBC BMP in a.m., monitor temperature, blood pressure 61-year-old female admitted secondary to encephalopathy found to be related to 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 -Plan for chemo hem onc ff/ However patient can be transferred back to [facility] to resume chemo there. Hem/onc will get in touch with oncologist at [facility]. unabvle to do chemo at [place] apparently Continue working with PT. 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 with vasogenic edema and midline shift status post biopsy Continue steroids Continue to follow clinically Neurology following //Hypothyroidism, chronic Continue supplements Follows as outpatient //Hypertension Continue baseline treatment Follow blood pressures Adjust treatments as needed //Asthma No exacerbation Breathing treatments as needed //H/o ischemic CVA with possible seizure activity at the time of the CVA - no seizures since and does not take AEDs Monitor for any seizure activity Continue Keppra PO Cerebyx 100mg Q8 DCd and change to phenytoin PO continue //Hyperlipidemia Continue present treatment Follow as an outpatient //Bipolar disorder No change to baseline treatments //Obstructive sleep apnea CPAP //Generalize physical deficit May be contributory by brain edema Continue physical therapy //DVT prophylaxis //GI prophylaxis. Pepcid as patient is on steroids. Bleed risk is present SCDs Discharge Planning Continues on chemotherapy per heme oncology. DC when cleared by oncology. Manuel Aguilar MD August 12, 2017 18:21
[2017-08-12] MEDS: SODIUM BICARBONATE 8.4% INJ 100 MEQ in DEXTROSE 5% IN WATE 1000ML INJ 1,000 ML IV SCH ×2 (18:39)
[2017-08-12] MEDS: ATORVASTATIN 40 MG TAB PO SCH (20:36)
[2017-08-12] MEDS: QUEtiapine FUMARATE 25 MG TAB PO SCH (20:36)
--- NOTE | 2017-08-12 21:06 | HHI.NPPN ---
Subjective Renal Failure: Acute History of Present Illness 62-year-old female with past medical history of hypertension, chronic obstructive pulmonary disease, hypothyroidism, history of non-Hodgkin's lymphoma, hyperlipidemia, cerebrovascular accident, was admitted on 07/14/2017 because of brain mass and possibility of subacute hemorrhage. Additional Remarks Patient is alert, no SOB, feeling better. Review of Systems General Constitutional: Fatigue Cardiovascular Cardiac: Edema, MASTERSON Objective Data Data 08/12/17 08/13/17 19:00 07:00 Intake Total 960 ml Output Total 900 ml Balance 60 ml Intake Oral 960 ml Output Urine Total 900 ml Stool Total 0 ml # Voids 1 Vital Signs Date Time Temp Pulse Resp B/P (MAP) Pulse Ox O2 Delivery O2 Flow Rate FiO2 08/12/17 16:46 98.2 57 18 128/73 (91) 97 08/12/17 16:00 57 08/12/17 13:11 99.2 60 20 119/67 (84) 98 08/12/17 12:00 55 08/12/17 08:00 60 08/12/17 08:00 95 2.00 08/12/17 07:57 98.6 56 18 123/69 (87) 95 08/12/17 07:30 98 Nasal Cannula 5.00 08/12/17 04:00 98.0 60 16 137/77 (97) 95 08/12/17 04:00 53 08/12/17 00:00 60 08/12/17 00:00 98.6 59 16 152/86 (108) 95 08/11/17 23:37 97 Nasal Cannula 2.00 -: 08/12/17 0740 08/12/17 0740 Physical Exam General Appearance: Well Nourished, No Acute Distress, Comfortable Eyes Eye Exam: Pupils Equal Throat Throat Exam: Oral Mucosa [employer] & Moist Neck Neck Exam: Neck Supple, Trachea Midline Pulmonary Resp Exam: Clear Bilaterally, Breath Sounds Equal, No Distress, Decreased Bases Cardiology CV Exam: Regular, Normal Sinus Rhythm Gastrointestinal/Abdomen GI Exam: Soft, Non-Tender, Bowel Sounds Present Extremeties Extremities Exam: Trace Edema Neurologic Neuro Exam: Alert, Awake, Oriented Psychiatric Psych Exam: Appropriate Responses Assessment/Plan Assessment Summary: JJ/Acute Renal Failure Problem List: (1) Hyperlipidemia ICD Codes: E78.5 - Hyperlipidemia, unspecified (2) Seizure ICD Codes: R56.9 - Unspecified convulsions (3) Hypertension ICD Codes: I10 - Essential (primary) hypertension (4) B-cell lymphoma ICD Codes: C85.10 - Unspecified B-cell lymphoma, unspecified site (5) Brain mass ICD Codes: G93.9 - Disorder of brain, unspecified (6) Renal insufficiency ICD Codes: N28.9 - Disorder of kidney and ureter, unspecified Plan Patient develop JJ, Remain non oliguric, Creatinine is almost same. Renal U/S noted. Urine Sodium is normal, not low. Urine Eosinophils negative. Most likely has ATN due to Chemotherapy. Continue IVF with NaHco3. Follow the urine out ;put and BMP. Problem Qualifiers (1) B-cell lymphoma: Qualified Codes: C85.10 - Unspecified B-cell lymphoma, unspecified site Lisandro Winters MD August 12, 2017 21:06
--- NOTE | 2017-08-12 22:25 | EKG ---
Date Performed: 08/11/2017 Time Performed: 21:46:57 PTAGE: 62 years EKG: SINUS BRADYCARDIA NONSPECIFIC T-WAVE ABNORMALITY BORDERLINE ECG PREVIOUS TRACING : 08/11/2017 16.16 Since the previous tracing, no significant change noted DOCTOR: Jt Long Interpretating Date/Time 08/12/2017 22:23:14
--- NOTE | 2017-08-12 22:32 | EKG ---
Date Performed: 08/11/2017 Time Performed: 16:16:04 PTAGE: 62 years EKG: Sinus rhythm Anterolateral T wave changes are nonspecific Borderline ECG PREVIOUS TRACING : 08/11/2017 10.52 DOCTOR: Jt Long Interpretating Date/Time 08/12/2017 22:31:29
[2017-08-13] VITALS (9 sets, daily range): BP systolic 96–152; BP diastolic 56–87; PULSE 53–62; RESP 16–20; TEMP 97.2–99.2; O2SAT 94–98
[2017-08-13] MEDS: CHLORHEXIDINE GLUCONATE 2 % 1 PACK (2 CLOTHS) TOP SCH (02:39)
[2017-08-13] MEDS: LEUCOVORIN IV SCH ×4 (04:04→21:18)
[2017-08-13] MEDS: SODIUM CHLORIDE 0.9% IV SCH ×4 (04:04→21:18)
[2017-08-13] MEDS: SODIUM BICARBONATE 8.4% INJ 100 MEQ in DEXTROSE 5% IN WATE 1000ML INJ 1,000 ML IV SCH ×6 (04:10→19:55)
[2017-08-13] MEDS: LEVOTHYROXINE SODIUM 150 MCG TAB PO SCH (06:06)
[2017-08-13] MEDS: DEXAMETHASONE 4 MG TAB PO SCH ×3 (06:06→19:56)
[2017-08-13] MEDS: PHENYTOIN SODIUM 100 MG CAP PO SCH ×3 (06:06→21:18)
[2017-08-13 06:27] LABS: AUTOMATED NEUTROPHIL # 3.5 TH/MM3 (1.8-7.7); BASOPHIL % 0.6 % (0.0-2.0); EOSINOPHIL # 0.4 TH/MM3 (0-0.4); EOSINOPHIL % 8.5 % (0.0-4.0); HEMATOCRIT 24.3 % (35.0-46.0); HEMOGLOBIN 8.3 GM/DL (11.6-15.3); LYMPH % 16.1 % (9.0-44.0); LYMPHOCYTE # 0.8 TH/MM3 (1.0-4.8); MEAN CELL VOLUME 94.9 FL (80.0-100.0); MEAN CORPUSCULAR HEMOGLOBIN 32.4 PG (27.0-34.0); MEAN CORPUSCULAR HGB CONC 34.1 % (32.0-36.0); MEAN PLATELET VOLUME 7.8 FL (7.0-11.0); MONO % 4.5 % (0.0-8.0); MONOCYTE # 0.2 TH/MM3 (0-0.9); NEUT % 70.3 % (16.0-70.0); PLATELET COUNT 283 TH/MM3 (150-450); RED BLOOD COUNT 2.56 MIL/MM3 (4.00-5.30)
[2017-08-13 06:40] LABS: ALBUMIN 2.6 GM/DL (3.4-5.0); AST (GOT) 33 U/L (15-37); BICARBONATE 34.3 MEQ/L (21.0-32.0); BLOOD UREA NITROGEN 34 MG/DL (7-18); CALCIUM 8.5 MG/DL (8.5-10.1); CHLORIDE 98 MEQ/L (98-107); CREATININE 2.94 MG/DL (0.50-1.00); GLOMERULAR FILTRATION RATE 16 ML/MIN (>89); GLUCOSE,RANDOM 124 MG/DL (74-106); SODIUM (NA) 140 MEQ/L (136-145)
[2017-08-13 06:43] LABS: ALKALINE PHOSPHATASE 103 U/L (45-117); ALT (GPT) 54 U/L (10-53); TOTAL BILIRUBIN ADULT 0.3 MG/DL (0.2-1.0); TOTAL PROTEIN 6.2 GM/DL (6.4-8.2)
[2017-08-13] MEDS: CHLORHEXIDINE 0.12% (ORAL KIT) 15 ML CUP MT SCH ×2 (08:00→20:00)
[2017-08-13] MEDS: levETIRAcetam 500 MG TAB PO SCH ×2 (09:46→21:18)
[2017-08-13] MEDS: CITALOPRAM HYDROBROMIDE 20 MG TAB PO SCH (09:46)
[2017-08-13] MEDS: ALLOPURINOL 100 MG TAB PO SCH ×2 (09:47→21:18)
[2017-08-13] MEDS: DOCUSATE SODIUM 100 MG CAP PO SCH ×2 (09:47→21:18)
[2017-08-13] MEDS: DOCUSATE SODIUM 50 MG/SENNA 8.6 MG TAB PO SCH ×2 (09:47→21:18)
[2017-08-13] MEDS: FAMOTIDINE 20 MG TAB PO SCH ×2 (09:47→21:00)
[2017-08-13] MEDS: FERROUS SULFATE 325 MG (65 MG ELEMENTAL IRON) TAB PO SCH (09:50)
--- NOTE | 2017-08-13 11:24 | HHI.NPPN ---
Subjective Renal Failure: Acute History of Present Illness 62-year-old female with past medical history of hypertension, chronic obstructive pulmonary disease, hypothyroidism, history of non-Hodgkin's lymphoma, hyperlipidemia, cerebrovascular accident, was admitted on 07/14/2017 because of brain mass and possibility of subacute hemorrhage. Additional Remarks Patient is alert, no SOB, family at bedside. (Marisel Durham) Review of Systems General Constitutional: Fatigue (Marisel Durham) Objective Data Data Vital Signs Date Time Temp Pulse Resp B/P (MAP) Pulse Ox O2 Delivery O2 Flow Rate FiO2 08/13/17 09:00 97.5 53 18 124/74 (91) 94 08/13/17 08:00 54 08/13/17 04:00 55 08/13/17 04:00 98.6 60 16 146/87 (106) 95 08/13/17 00:00 55 08/13/17 00:00 98.2 58 16 141/78 (99) 95 08/12/17 20:00 57 08/12/17 20:00 Nasal Cannula 2.00 08/12/17 20:00 98.7 60 18 149/80 (103) 95 08/12/17 16:46 98.2 57 18 128/73 (91) 97 08/12/17 16:00 57 08/12/17 13:11 99.2 60 20 119/67 (84) 98 08/12/17 12:00 55 (Marisel Durham) -: 08/13/17 0405 08/13/17 0405 Imaging Last Impressions Renal Ultrasound 08/10/17 0000 Signed Impressions: Service Date/Time: Thursday, August 10, 2017 11:22 - CONCLUSION: 1. Hypoechoic lesion just superior to the right kidney likely represents right adrenal lesion. 2. Bilateral renal cysts. Orlando Tavarez MD Chest X-Ray 08/07/17 0000 Signed Impressions: Service Date/Time: Monday, August 07, 2017 13:21 - CONCLUSION: 1. Bibasilar areas of atelectasis. Skip Pelaez MD Thyroid Ultrasound 07/30/17 0000 Signed Impressions: Service Date/Time: July 08:47 - CONCLUSION: 1. Diffusely heterogeneous multinodular thyroid gland. 2. 1.7 cm solid nodule in the inferior right lobe and 2 mixed nodules in the mid and inferior left pole meet criteria for fine needle aspiration. Frankie Dao MD Bone Biopsy CT 07/28/17 Signed Impressions: Service Date/Time: Friday, July 28, 2017 13:46 - CONCLUSION: 1. Uncomplicated CT guided bone marrow aspirate. 2. Uncomplicated CT guided bone marrow biopsy. Israel Garvin MD Lumbar Puncture Fluoroscopy 07/27/17 Signed Impressions: Service Date/Time: Thursday, July 27, 2017 15:37 - CONCLUSION: Uncomplicated fluoroscopically guided lumbar puncture with pressures as above. Kwasi Wilkins MD Chest CT 07/26/17 Signed Impressions: Service Date/Time: Thursday, July 27, 2017 15:56 - CONCLUSION: 1. Atelectasis at the lung bases but no lung mass or adenopathy. No effusions. 2. Numerous bilateral thyroid nodules measuring up to about 1.5 cm in diameter. See abdomen CT for findings below the diaphragm. Job Barrera MD Abdomen/Pelvis CT 07/26/17 Signed Impressions: Service Date/Time: Thursday, July 27, 2017 15:56 - CONCLUSION: 1. No acute findings abdomen pelvic CT. No definite evidence for metastatic disease. 2.5 cm likely right adrenal adenoma. 2. Mild fatty liver. Job Barrera MD Head CT 07/25/17 Signed Impressions: Service Date/Time: Tuesday, July 25, 2017 14:37 - CONCLUSION: Persistent 3.2 cm mass seen in the left basal ganglia/caudate region. This appears more prominent. This demonstrates increased density which could represent some degree of hemorrhage. Some increased density was present on the prior postoperative CT examination. The previously seen air has resolved. There continues to be vasogenic edema and focal left to right midline shift. Israel Davis MD Brain MRI 07/15/17 Signed Impressions: Service Date/Time: Saturday, July 15, 2017 15:42 - CONCLUSION: Left basal ganglia mass with moderate associated vasogenic edema. Mild-moderate hemispheric mass effect. Serpiginous enhancement in the contralateral right mid to high convexity frontal region. Israel Ruelas MD (Marisel Durham [facility]) Physical Exam General Appearance: Well Nourished, No Acute Distress, Comfortable (Marisel Durham) Eyes Eye Exam: Pupils Equal (Marisel Durham) Throat Throat Exam: Oral Mucosa [place] & Moist (Marisel Durham) Neck Neck Exam: Neck Supple, Trachea Midline (Marisel Durham) Pulmonary Resp Exam: Clear Bilaterally, Breath Sounds Equal, No Distress, Decreased Bases (Marisel Durham) Cardiology CV Exam: Regular, Normal Sinus Rhythm (Marisel Durham) Gastrointestinal/Abdomen GI Exam: Soft, Non-Tender, Bowel Sounds Present (Marisel Durham) Extremeties Extremities Exam: Trace Edema (Marisel Durham) Neurologic Neuro Exam: Alert, Awake, Oriented (Marisel Durham) Psychiatric Psych Exam: Appropriate Responses (Marisel Durham) Assessment/Plan Assessment Summary: JJ/Acute Renal Failure Problem List: (1) Hyperlipidemia ICD Codes: E78.5 - Hyperlipidemia, unspecified (2) Seizure ICD Codes: R56.9 - Unspecified convulsions (3) Hypertension ICD Codes: I10 - Essential (primary) hypertension (4) B-cell lymphoma ICD Codes: C85.10 - Unspecified B-cell lymphoma, unspecified site (5) Brain mass ICD Codes: G93.9 - Disorder of brain, unspecified (6) Renal insufficiency ICD Codes: N28.9 - Disorder of kidney and ureter, unspecified Plan Patient develop JJ, Most likely has ATN due to Chemotherapy. Remains non oliguric with urinary output of 1.7 L/24 hours Renal U/S noted. Urine Sodium is normal, not low. Urine Eosinophils negative. Creatinine slightly better at 2.94 from 3.01 Continue IVF with NaHco3. Follow the urine out ;put and BMP. (Marisel Durham) Plan Patient seen and examined, agree with above. Slight improvement in the Creatinine. (Lisandro Winters MD) Problem Qualifiers (1) B-cell lymphoma: Qualified Codes: C85.10 - Unspecified B-cell lymphoma, unspecified site Marisel Durham August 13, 2017 11:24 Lisandro Winters MD August 17, 2017 19:10
--- NOTE | 2017-08-13 11:55 | PD.ONC.PN ---
Subjective Subjective Remarks Afebrile overnight. Patient resting in bed in nad. Daughter at bedside states she is much more active today. moving her RUE and RLE a lot more. Objective Data Date Time Temp Pulse Resp B/P (MAP) Pulse Ox O2 Delivery O2 Flow Rate FiO2 08/13/17 09:00 97.5 53 18 124/74 (91) 94 08/13/17 08:00 54 08/13/17 04:00 55 08/13/17 04:00 98.6 60 16 146/87 (106) 95 08/13/17 00:00 55 08/13/17 00:00 98.2 58 16 141/78 (99) 95 08/12/17 20:00 57 08/12/17 20:00 Nasal Cannula 2.00 08/12/17 20:00 98.7 60 18 149/80 (103) 95 08/12/17 16:46 98.2 57 18 128/73 (91) 97 08/12/17 16:00 57 08/12/17 13:11 99.2 60 20 119/67 (84) 98 08/12/17 12:00 55 08/13/17 08/13/17 08/13/17 06:59 14:59 22:59 Output Total 850 ml Balance -850 ml Result Diagram: 08/13/17 0405 08/13/17 0405 Laboratory Results Laboratory Tests Test 08/12/17 19:15 08/13/17 04:05 08/13/17 06:04 08/13/17 06:18 Urine pH 8.5 8.5 White Blood Count 5.0 TH/MM3 Red Blood Count 2.56 MIL/MM3 Hemoglobin 8.3 GM/DL Hematocrit 24.3 % Mean Corpuscular Volume 94.9 FL Mean Corpuscular Hemoglobin 32.4 PG Mean Corpuscular Hemoglobin Concent 34.1 % Red Cell Distribution Width 14.0 % Platelet Count 283 TH/MM3 Mean Platelet Volume 7.8 FL Neutrophils (%) (Auto) 70.3 % Lymphocytes (%) (Auto) 16.1 % Monocytes (%) (Auto) 4.5 % Eosinophils (%) (Auto) 8.5 % Basophils (%) (Auto) 0.6 % Neutrophils # (Auto) 3.5 TH/MM3 Lymphocytes # (Auto) 0.8 TH/MM3 Monocytes # (Auto) 0.2 TH/MM3 Eosinophils # (Auto) 0.4 TH/MM3 Basophils # (Auto) 0.0 TH/MM3 CBC Comment DIFF FINAL Differential Comment Blood Urea Nitrogen 34 MG/DL Creatinine 2.94 MG/DL Random Glucose 124 MG/DL Total Protein 6.2 GM/DL Albumin 2.6 GM/DL Calcium Level 8.5 MG/DL Alkaline Phosphatase 103 U/L Aspartate Amino Transf (AST/SGOT) 33 U/L Alanine Aminotransferase (ALT/SGPT) 54 U/L Total Bilirubin 0.3 MG/DL Sodium Level 140 MEQ/L Potassium Level 3.9 MEQ/L Chloride Level 98 MEQ/L Carbon Dioxide Level 34.3 MEQ/L Anion Gap 8 MEQ/L Estimat Glomerular Filtration Rate 16 ML/MIN Administered Medications Medications (Trade) Dose Ordered Sig/Thaddeus Route PRN Reason Start Time Stop Time Status Last Admin Dose Admin Senna/Docusate Sodium (Maddy-Colace) 1 tab BID PO 07/15/17 09:00 08/13/17 09:47 Magnesium Hydroxide (Milk Of Magnesia Liq) 30 ml Q12H PRN PO Mild constipation 07/14/17 22:15 08/08/17 10:03 Sennosides (Senokot) 17.2 mg Q12H PRN PO Moderate constipation 07/14/17 22:15 07/31/17 22:58 Bisacodyl (Dulcolax Supp) 10 mg DAILY PRN RECTAL SEVERE CONSITIPATION/ IF NPO 07/14/17 22:15 08/07/17 22:05 Lactulose (Lactulose Liq) 30 ml DAILY PRN PO SEVERE CONSITIPATION/ IF PO 07/14/17 22:15 08/02/17 09:39 Albuterol Sulfate (Albuterol Neb) 2.5 mg Q4HR NEB PRN NEB sob/wheezing 07/14/17 22:30 07/14/17 23:41 Allopurinol (Zyloprim) 100 mg BID PO 07/15/17 09:00 08/13/17 09:47 Atorvastatin Calcium (Lipitor) 40 mg HS PO 07/15/17 21:00 08/12/17 20:36 Citalopram Hydrobromide (CeleXA) 20 mg DAILY PO 07/15/17 09:00 08/13/17 09:46 Levothyroxine Sodium (Synthroid) 150 mcg DAILY@0700 PO 07/15/17 07:00 08/13/17 06:06 Quetiapine Fumarate (SEROquel) 25 mg HS PO 07/15/17 21:00 08/12/17 20:36 Chlorhexidine Gluconate (Peridex 0.12% Liq) 15 ml BID@08,20 MT 07/16/17 20:00 08/01/17 20:00 Chlorhexidine Gluconate (Chlorhexidine 2% Cloth) Taper DAILY@04 TOP 07/17/17 04:00 07/13/18 03:59 07/29/17 04:00 Heparin Sodium (Porcine) (Heparin Central Flush) See Protocol DAILY IV FLUSH 07/17/17 09:00 08/13/17 09:44 Heparin Sodium (Porcine) (Heparin Central Flush) See Protocol UNSCH PRN IV FLUSH SEE PROTOCOL TABLE 07/16/17 19:30 08/09/17 05:52 Sodium Chloride (NS Flush) UNSCH PRN IV FLUSH SEE PROTOCOL TABLE 07/16/17 19:30 08/12/17 11:34 Sodium Chloride (NS Flush) See Protocol UNSCH PRN IV FLUSH FLUSH AFTER USING IV ACCESS 07/16/17 19:30 08/06/17 10:29 Docusate Sodium (Colace) 100 mg BID PO 07/17/17 21:00 08/13/17 09:47 Ondansetron HCl (Zofran Inj) 4 mg Q6H PRN IV PUSH NAUSEA OR VOMITING 07/17/17 10:45 08/09/17 06:03 Acetaminophen/ Hydrocodone Bitart (Franklin 10-325 Mg) 1 tab Q4H PRN PO PAIN SCALE 1 TO 5 07/17/17 11:45 07/30/17 04:36 Acetaminophen/ Hydrocodone Bitart (Franklin 10-325 Mg) 2 tab Q4H PRN PO PAIN SCALE 6 TO 10 07/17/17 11:45 07/24/17 15:43 Morphine Sulfate (Morphine Inj) 4 mg Q2H PRN IV PUSH PAIN SCALE 7 TO 10 07/17/17 11:45 07/20/17 09:44 Acetaminophen (Tylenol) 650 mg Q4H PRN PO TEMPERATURE > 101.5 F 07/17/17 11:45 08/10/17 15:19 Phenytoin (Dilantin) 100 mg Q8HR PO 07/22/17 14:00 Future Hold 07/25/17 13:35 Ferrous Sulfate (Ferrous Sulfate) 325 mg DAILY PO 07/24/17 09:00 08/13/17 09:50 Dexamethasone (Decadron) 4 mg Q6HR PO 08/01/17 18:00 08/13/17 06:06 Levetriacetam (Keppra) 1,000 mg Q12HR PO 08/02/17 21:00 08/13/17 09:46 Phenytoin (Dilantin) 100 mg Q8HR PO 08/02/17 14:00 08/13/17 06:06 Famotidine (Pepcid) 10 mg BID PO 08/11/17 09:00 08/13/17 09:47 Leucovorin Calcium 100 mg/ Sodium Chloride 50 ml @ 400 mls/hr Q6H IV 08/11/17 09:00 08/14/17 03:01 08/13/17 09:39 Sodium Bicarbonate 100 meq/Dextrose 1,100 ml @ 150 mls/hr Q7H20M IV 08/11/17 10:00 08/13/17 09:42 Objective Remarks GENERAL: Middle aged female, sitting up in chair next to bed, talking with daughter and watching TV. SKIN: Warm and dry. HEAD: Normocephalic. EYES: No injection or drainage. NECK: Supple, trachea midline. CARDIOVASCULAR: Regular rate and rhythm RESPIRATORY: anterior lewis clear. on 2L O2 via NC GASTROINTESTINAL: Abdomen soft, non-tender, nondistended. EXTREMITIES: No cyanosis NEUROLOGICAL: awake. improved weakness in right arm and right leg. following commands, tracking with eyes. oriented to self only. 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 received 6 cycles of R-CHOP under the direction of Dr. Alves at [facility] in [place] (was in remission) (2) Bundle branch block ICD Codes: I45.4 - Nonspecific intraventricular block Plan: --appreciate cardiology assistance. --recommend waiting until methotrexate levels are <0.01 before starting ASA therapy as there is a potential for interaction. (3) Renal insufficiency ICD Codes: N28.9 - Disorder of kidney and ureter, unspecified Plan: --improving, appreciate nephrology assistance. 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 Plan 1. MTX=0.10 today. we plan to continue leucovorin until MTX<0.05 2. continue daily physical therapy 3. monitor renal function, continue aggressive hydration with alkalinized fluids. will continue to maintain urine pH greater than 7 until MTX is less than 0.05. Attending Statement The exam, history, and the medical decision-making described in the above note were completed with the assistance of the mid-level provider. I reviewed and agree with the findings presented. I attest that I had a [id number] encounter with the patient on the same day, and personally performed and documented my assessment and findings in the medical record. 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 She is seen at bedside with her family. creatinine improving, mental status improving. continue with IVF. Will continue leucovorin until mtx levels less than 0.05. Problem Qualifiers (1) B-cell lymphoma: Qualified Codes: C85.10 - Unspecified B-cell lymphoma, unspecified site Yin Still August 13, 2017 11:55 Evy Melendez MD August 14, 2017 07:40
--- NOTE | 2017-08-13 12:53 | RADRPT ---
EXAM DATE/TIME: 08/13/2017 12:03 [place] COMPARISON: CHEST SINGLE AP, August 07, 2017, 13:21. INDICATIONS : Cough MEDICAL HISTORY : Stroke. Hypertension dementia, asthma SURGICAL HISTORY : Cholecystectomy. ENCOUNTER: Subsequent ACUITY: 1 month PAIN SCORE: Non-responsive. LOCATION: Bilateral chest FINDINGS: There is a stable left PICC line with tip in the proximal SVC. Redemonstration of minimal airspace di sease at the lung bases, improved from prior exam. No new focal pleural or parenchymal opacities. Car diomediastinal contours are stable. Remainder of exam is unchanged. CONCLUSION: 1. Improved aeration at the lung bases, presumably improved atelectasis. 2. Otherwise, no acute abnormality or significant interval change. Frankie Dao MD on August 13, 2017 at 12:49 Board Certified Radiologist. This report was verified electronically.
--- NOTE | 2017-08-13 17:58 | HHI.PR ---
Subjective Remarks Patient sitting on the chair eating, doing much better, daughter at the bedside still improving movement in the right upper extremity Objective Vitals Vital Signs Date Time Temp Pulse Resp B/P (MAP) Pulse Ox O2 Delivery O2 Flow Rate FiO2 08/13/17 16:34 97.7 57 20 142/62 (88) 94 08/13/17 12:44 97.2 56 20 152/56 (88) 98 08/13/17 09:00 97.5 53 18 124/74 (91) 94 08/13/17 08:00 54 08/13/17 04:00 55 08/13/17 04:00 98.6 60 16 146/87 (106) 95 08/13/17 00:00 55 08/13/17 00:00 98.2 58 16 141/78 (99) 95 08/12/17 20:00 57 08/12/17 20:00 Nasal Cannula 2.00 08/12/17 20:00 98.7 60 18 149/80 (103) 95 I/O 08/12/17 08/12/17 08/12/17 08/13/17 08/13/17 08/13/17 07:00 15:00 23:00 07:00 15:00 23:00 Intake Total 240 ml 720 ml Output Total 900 ml 900 ml 850 ml 500 ml Balance -900 ml 240 ml -180 ml -850 ml -500 ml Intake Oral 240 ml 720 ml Output Urine Total 900 ml 900 ml 850 ml 500 ml Stool Total 0 ml # Voids 2 1 2 1 # Bowel Movements 1 Result Diagram: 08/13/17 0405 08/13/17 0405 Objective Remarks GENERAL: This is a well-nourished, well-developed patient, in no apparent distress. CARDIOVASCULAR: RRR, no gallops, or rubs. RESPIRATORY: Fair air entry bilaterally. No W, R, or R GASTROINTESTINAL: Abdomen soft, non-tender, nondistended. Positive bowel sounds MUSCULOSKELETAL: Extremities without clubbing, cyanosis, or edema. Pedal pulses appreciated NEUROLOGICAL: Awake and alert. Able to speak in [place] Procedures Date of Surgery: Jul 17, 2017 Preoperative Diagnosis: Left basal ganglia brain mass Postoperative Diagnosis: Left basal ganglia [employer] lymphoma Procedure: Stereotactic biopsy of Left basal ganglia brain mass Anesthesia: general endotracheal Surgeon: Miguel Sutton Student Dean(s): Eva Smith Operation and Findings: INDICATIONS FOR THE PROCEDURE Ms Sun is a 61 year-old female who presented with neurological findings of right sided weakness and was found to have left basal ganglia enhancing mass. The lesions had abnormal signal intensity and and characteristics consistent with a possible neoplastic, inflammatory, or infectious process. A stereotactic biopsy of the lesions was indicated. The [id number] details of the procedure, its indications, alternatives, risks and potential complications were fully discussed with the patient. The patient fully understood. All questions were answered. No guarantees were given. The patient voiced requesting the procedure and provided informed consents. The patient was offered the alternative of not having aggressive management. DETAILS OF THE SURGICAL PROCEDURE Preoperative planning Prior to the surgery the patient underwent an MRI of the brain according to the stereotactic protocol. The information from the MRI scan was transferred to the operating room via the hospital network and the preoperative planning of the lesion was made. A julia was made at the patients operative site according to the hospital policy. Surgical positioning The patient was then brought to the operating room. After induction of general anesthesia endotracheal intubation was performed. Bkilateral carlos hose and sequential compression devices were placed and kept throughout the procedure. The patient was positioned supine on a 3080 table over a soft mattress. All pressure points were carefully padded with an egg crate mattress. The eyes were tapped shut after ointment was applied by the anesthesiologist to prevent corneal abrasion. A Shannon hugger was placed over the exposed lower body to maintain control of the core body temperature. The head was held in rigid fixation using the Bravo teller head. Intraoperative registration The rigid body was attached to the Bravo headholder. Intraoperative registration was then performed with the [facility]. The lesion was located in the three planes, sagittal, axial and coronal. An entry point was selected in the scalp. Surgical Approach and stereotactic biopsy The skin was prepped and draped in the usual sterile fashion. A linear incision in the left frontal region selected by the planning was outlined. The area was infiltrated with 1% lidocaine with epinephrine 1:100,000 dilution. A skin incision was made with a #10 blade. Small subgaleal bleeders were controlled with a bipolar a small self-retaining retractor was placed in the incision. The fascia and muscle were incised with a Bovie and retracted at each side. The Midas Freddy was brought into the field and a bur hole was made with an AM-8 drill bit. The duramatter was coagulated with a bipolar and opening increased for pressure and a very small corticotomy performed. At this point of the procedure the stereotactic biopsy arm was brought into the field and secured to the teller head. The cut off saw grader was brought into the field, and the trajectory on the biopsy arm was created following the previously selected trajectory. Then, a stereotactic needle was carefully inserted into the brain at the center of the lesion and by gentle aspiration two initial biopsies were obtained, one of which was sent to the lab for frozen section, while the second kept for permanent histological annalysis. Meanwhile, additional specimens were obtained for permanent histologic analysis. At this point in the procedure , after waiting for awhile, the frozen section was called in and reported as lymphoma. The biopsy needle was carefully removed and the stereotactic device was removed. The incision was irrigated with a large amount of saline. A piece of Gelfoam was placed over the surface of the brain and a bur hole cover was placed. The incision was closed in layers. 3-0 Vicryl with interrupted sutures were used to close the fascial layers and galea. The skin was closed with chpi. A sterile dressing was applied. At the end of the procedure the sponge, needle and instrument counts were all correct. Estimated blood loss was minimal. No blood transfusion was given. The patient received preoperative prophylactic antibiotics. No intraoperative complications occurred. The patient was transferred to the recovery room in stable condition. Miguel Sutton MD Jul 17, 2017 17:40 A/P Problem List: (1) Brain mass ICD Code: G93.9 - Disorder of brain, unspecified (2) Dementia without behavioral disturbance ICD Code: F03.90 - Unspecified dementia without behavioral disturbance (3) Hypertension ICD Code: I10 - Essential (primary) hypertension (4) Hyperlipidemia ICD Code: E78.5 - Hyperlipidemia, unspecified (5) Seizure ICD Code: R56.9 - Unspecified convulsions Assessment and Plan 08/12: Continue current care, follow with oncology, Repeat CBC BMP in a.m., monitor temperature, blood pressure 08/13: Continue monitoring CBC, nephrology following, continue PT OT, monitor blood pressure, discussed with the daughter 61-year-old female admitted secondary to encephalopathy found to be related to 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 -Plan for chemo hem onc ff/ However patient can be transferred back to [facility] to resume chemo there. Hem/onc will get in touch with oncologist at [facility]. unabvle to do chemo at [place] apparently Continue working with PT. 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 with vasogenic edema and midline shift status post biopsy Continue steroids Continue to follow clinically Neurology following //Hypothyroidism, chronic Continue supplements Follows as outpatient //Hypertension Continue baseline treatment Follow blood pressures Adjust treatments as needed //Asthma No exacerbation Breathing treatments as needed //H/o ischemic CVA with possible seizure activity at the time of the CVA - no seizures since and does not take AEDs Monitor for any seizure activity Continue Keppra PO Cerebyx 100mg Q8 DCd and change to phenytoin PO continue //Hyperlipidemia Continue present treatment Follow as an outpatient //Bipolar disorder No change to baseline treatments //Obstructive sleep apnea CPAP //Generalize physical deficit May be contributory by brain edema Continue physical therapy //DVT prophylaxis //GI prophylaxis. Pepcid as patient is on steroids. Bleed risk is present SCDs Discharge Planning Continues on chemotherapy per heme oncology. DC when cleared by oncology. Manuel Aguilar MD August 13, 2017 17:58
--- NOTE | 2017-08-13 18:31 | HHI.PR ---
Objective Vitals Vital Signs Date Time Temp Pulse Resp B/P (MAP) Pulse Ox O2 Delivery O2 Flow Rate FiO2 08/13/17 16:34 97.7 57 20 142/62 (88) 94 08/13/17 12:44 97.2 56 20 152/56 (88) 98 08/13/17 09:00 97.5 53 18 124/74 (91) 94 08/13/17 08:00 54 08/13/17 04:00 55 08/13/17 04:00 98.6 60 16 146/87 (106) 95 08/13/17 00:00 55 08/13/17 00:00 98.2 58 16 141/78 (99) 95 08/12/17 20:00 57 08/12/17 20:00 Nasal Cannula 2.00 08/12/17 20:00 98.7 60 18 149/80 (103) 95 I/O 08/12/17 08/12/17 08/12/17 08/13/17 08/13/17 08/13/17 07:00 15:00 23:00 07:00 15:00 23:00 Intake Total 240 ml 720 ml Output Total 900 ml 900 ml 850 ml 500 ml Balance -900 ml 240 ml -180 ml -850 ml -500 ml Intake Oral 240 ml 720 ml Output Urine Total 900 ml 900 ml 850 ml 500 ml Stool Total 0 ml # Voids 2 1 2 1 # Bowel Movements 1 Result Diagram: 08/13/17 0405 08/13/17 0405 Objective Remarks GENERAL: This is a well-nourished, well-developed patient, in no apparent distress. CARDIOVASCULAR: RRR, no gallops, or rubs. RESPIRATORY: Fair air entry bilaterally. No W, R, or R GASTROINTESTINAL: Abdomen soft, non-tender, nondistended. Positive bowel sounds MUSCULOSKELETAL: Extremities without clubbing, cyanosis, or edema. Pedal pulses appreciated NEUROLOGICAL: Awake and alert. Able to speak in Nepali Procedures Date of Surgery: Jul 17, 2017 Preoperative Diagnosis: Left basal ganglia brain mass Postoperative Diagnosis: Left basal ganglia CHAIR TRIMMER lymphoma Procedure: Stereotactic biopsy of Left basal ganglia brain mass Anesthesia: general endotracheal Surgeon: Miguel Sutton Candy Cutter Hand(s): Eva Smith Operation and Findings: INDICATIONS FOR THE PROCEDURE Ms Sun is a 61 year-old female who presented with neurological findings of right sided weakness and was found to have left basal ganglia enhancing mass. The lesions had abnormal signal intensity and and characteristics consistent with a possible neoplastic, inflammatory, or infectious process. A stereotactic biopsy of the lesions was indicated. The [id number] details of the procedure, its indications, alternatives, risks and potential complications were fully discussed with the patient. The patient fully understood. All questions were answered. No guarantees were given. The patient voiced requesting the procedure and provided informed consents. The patient was offered the alternative of not having aggressive management. DETAILS OF THE SURGICAL PROCEDURE Preoperative planning Prior to the surgery the patient underwent an MRI of the brain according to the stereotactic protocol. The information from the MRI scan was transferred to the operating room via the hospital network and the preoperative planning of the lesion was made. A julia was made at the patients operative site according to the hospital policy. Surgical positioning The patient was then brought to the operating room. After induction of general anesthesia endotracheal intubation was performed. Bkilateral carlos hose and sequential compression devices were placed and kept throughout the procedure. The patient was positioned supine on a 3080 table over a soft mattress. All pressure points were carefully padded with an egg crate mattress. The eyes were tapped shut after ointment was applied by the anesthesiologist to prevent corneal abrasion. A Shannon hugger was placed over the exposed lower body to maintain control of the core body temperature. The head was held in rigid fixation using the Carey hogshead filler. Intraoperative registration The rigid body was attached to the Carey headholder. Intraoperative registration was then performed with the [facility]. The lesion was located in the three planes, sagittal, axial and coronal. An entry point was selected in the scalp. Surgical Approach and stereotactic biopsy The skin was prepped and draped in the usual sterile fashion. A linear incision in the left frontal region selected by the planning was outlined. The area was infiltrated with 1% lidocaine with epinephrine 1:100,000 dilution. A skin incision was made with a #10 blade. Small subgaleal bleeders were controlled with a bipolar a small self-retaining retractor was placed in the incision. The fascia and muscle were incised with a Bovie and retracted at each side. The Midas Freddy was brought into the field and a bur hole was made with an AM-8 drill bit. The duramatter was coagulated with a bipolar and opening increased for pressure and a very small corticotomy performed. At this point of the procedure the stereotactic biopsy arm was brought into the field and secured to the hogshead filler. The skewer up was brought into the field, and the trajectory on the biopsy arm was created following the previously selected trajectory. Then, a stereotactic needle was carefully inserted into the brain at the center of the lesion and by gentle aspiration two initial biopsies were obtained, one of which was sent to the lab for frozen section, while the second kept for permanent histological annalysis. Meanwhile, additional specimens were obtained for permanent histologic analysis. At this point in the procedure , after waiting for awhile, the frozen section was called in and reported as lymphoma. The biopsy needle was carefully removed and the stereotactic device was removed. The incision was irrigated with a large amount of saline. A piece of Gelfoam was placed over the surface of the brain and a bur hole cover was placed. The incision was closed in layers. 3-0 Vicryl with interrupted sutures were used to close the fascial layers and galea. The skin was closed with chip. A sterile dressing was applied. At the end of the procedure the sponge, needle and instrument counts were all correct. Estimated blood loss was minimal. No blood transfusion was given. The patient received preoperative prophylactic antibiotics. No intraoperative complications occurred. The patient was transferred to the recovery room in stable condition. Miguel Sutton MD Jul 17, 2017 17:40 A/P Problem List: (1) Brain mass ICD Code: G93.9 - Disorder of brain, unspecified (2) Dementia without behavioral disturbance ICD Code: F03.90 - Unspecified dementia without behavioral disturbance (3) Hypertension ICD Code: I10 - Essential (primary) hypertension (4) Hyperlipidemia ICD Code: E78.5 - Hyperlipidemia, unspecified (5) Seizure ICD Code: R56.9 - Unspecified convulsions Assessment and Plan 08/12: Continue current care, follow with oncology, Repeat CBC BMP in a.m., monitor temperature, blood pressure 08/13: Continue monitoring CBC, nephrology following, continue PT OT, monitor blood pressure, discussed with the daughter 61-year-old female admitted secondary to encephalopathy found to be related to 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 -Plan for chemo hem onc ff/ However patient can be transferred back to [facility] to resume chemo there. Hem/onc will get in touch with oncologist at [facility]. unabvle to do chemo at [place] apparently Continue working with PT. 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 with vasogenic edema and midline shift status post biopsy Continue steroids Continue to follow clinically Neurology following //Hypothyroidism, chronic Continue supplements Follows as outpatient //Hypertension Continue baseline treatment Follow blood pressures Adjust treatments as needed //Asthma No exacerbation Breathing treatments as needed //H/o ischemic CVA with possible seizure activity at the time of the CVA - no seizures since and does not take AEDs Monitor for any seizure activity Continue Keppra PO Cerebyx 100mg Q8 DCd and change to phenytoin PO continue //Hyperlipidemia Continue present treatment Follow as an outpatient //Bipolar disorder No change to baseline treatments //Obstructive sleep apnea CPAP //Generalize physical deficit May be contributory by brain edema Continue physical therapy //DVT prophylaxis //GI prophylaxis. Pepcid as patient is on steroids. Bleed risk is present SCDs Discharge Planning Continues on chemotherapy per heme oncology. DC when cleared by oncology. Manuel Aguilar MD August 13, 2017 18:31
[2017-08-13] MEDS: ATORVASTATIN 40 MG TAB PO SCH (21:17)
[2017-08-13] MEDS: QUEtiapine FUMARATE 25 MG TAB PO SCH (21:18)
[2017-08-14] VITALS (10 sets, daily range): BP systolic 114–125; BP diastolic 60–69; PULSE 49–66; RESP 18–20; TEMP 98.1–98.5; O2SAT 92–98
[2017-08-14] MEDS: DEXAMETHASONE 4 MG TAB PO SCH ×4 (00:01→17:06)
[2017-08-14] MEDS: SODIUM CHLORIDE 0.9% IV SCH ×4 (03:09→22:32)
[2017-08-14] MEDS: LEUCOVORIN IV SCH ×4 (03:09→22:32)
[2017-08-14] MEDS: SODIUM BICARBONATE 8.4% INJ 100 MEQ in DEXTROSE 5% IN WATE 1000ML INJ 1,000 ML IV SCH ×4 (03:15→16:00)
[2017-08-14] MEDS: CHLORHEXIDINE GLUCONATE 2 % 1 PACK (2 CLOTHS) TOP SCH (03:16)
[2017-08-14] MEDS: LEVOTHYROXINE SODIUM 150 MCG TAB PO SCH (05:20)
[2017-08-14] MEDS: PHENYTOIN SODIUM 100 MG CAP PO SCH ×2 (05:20→17:09)
[2017-08-14 07:30] LABS: AUTOMATED NEUTROPHIL # 2.2 TH/MM3 (1.8-7.7); BASOPHIL % 0.4 % (0.0-2.0); EOSINOPHIL # 0.5 TH/MM3 (0-0.4); EOSINOPHIL % 12.1 % (0.0-4.0); HEMATOCRIT 24.6 % (35.0-46.0); HEMOGLOBIN 8.6 GM/DL (11.6-15.3); LYMPH % 22.5 % (9.0-44.0); LYMPHOCYTE # 0.9 TH/MM3 (1.0-4.8); MEAN CORPUSCULAR HEMOGLOBIN 32.7 PG (27.0-34.0); MEAN CORPUSCULAR HGB CONC 34.8 % (32.0-36.0); MEAN PLATELET VOLUME 7.1 FL (7.0-11.0); MONO % 10.6 % (0.0-8.0); MONOCYTE # 0.4 TH/MM3 (0-0.9); NEUT % 54.4 % (16.0-70.0); PLATELET COUNT 265 TH/MM3 (150-450); RED BLOOD COUNT 2.62 MIL/MM3 (4.00-5.30); RED CELL DISTRIBUTION WIDTH 13.8 % (11.6-17.2)
[2017-08-14] MEDS: CHLORHEXIDINE 0.12% (ORAL KIT) 15 ML CUP MT SCH ×2 (08:00→20:00)
[2017-08-14 08:09] LABS: ALBUMIN 2.7 GM/DL (3.4-5.0); ALT (GPT) 54 U/L (10-53); AST (GOT) 31 U/L (15-37); BICARBONATE 37.5 MEQ/L (21.0-32.0); BLOOD UREA NITROGEN 31 MG/DL (7-18); CALCIUM 8.5 MG/DL (8.5-10.1); CHLORIDE 96 MEQ/L (98-107); CREATININE 2.62 MG/DL (0.50-1.00); GLOMERULAR FILTRATION RATE 18 ML/MIN (>89); GLUCOSE,RANDOM 113 MG/DL (74-106); SODIUM (NA) 140 MEQ/L (136-145)
[2017-08-14 08:11] LABS: ALKALINE PHOSPHATASE 111 U/L (45-117); TOTAL BILIRUBIN ADULT 0.3 MG/DL (0.2-1.0); TOTAL PROTEIN 6.3 GM/DL (6.4-8.2)
--- NOTE | 2017-08-14 10:33 | PD.ONC.PN ---
Subjective Subjective Remarks Afebrile overnight. Patient resting in bed. No complaints. no overnight events. daughter at bedside. Objective Data Date Time Temp Pulse Resp B/P (MAP) Pulse Ox O2 Delivery O2 Flow Rate FiO2 08/14/17 04:00 49 08/14/17 04:00 98.3 52 20 114/65 (81) 92 08/14/17 00:00 60 08/14/17 00:00 98.5 53 18 115/60 (78) 97 08/13/17 20:00 61 08/13/17 20:00 Nasal Cannula 2.00 08/13/17 20:00 99.2 59 20 96/65 (75) 97 08/13/17 19:00 96 2.00 08/13/17 16:34 97.7 57 20 142/62 (88) 94 08/13/17 16:00 95 2.00 08/13/17 16:00 62 08/13/17 12:44 97.2 56 20 152/56 (88) 98 08/13/17 12:00 96 Nasal Cannula 2.00 08/13/17 12:00 56 08/14/17 08/14/17 08/14/17 07:00 15:00 23:00 Intake Total 240 ml Output Total 1575 ml Balance -1335 ml Result Diagram: 08/14/1770408/14/17704 Laboratory Results Laboratory Tests Test 08/13/17 20:00 08/14/17 07:05 Urine pH 8.5 White Blood Count 4.0 TH/MM3 Red Blood Count 2.62 MIL/MM3 Hemoglobin 8.6 GM/DL Hematocrit 24.6 % Mean Corpuscular Volume 94.0 FL Mean Corpuscular Hemoglobin 32.7 PG Mean Corpuscular Hemoglobin Concent 34.8 % Red Cell Distribution Width 13.8 % Platelet Count 265 TH/MM3 Mean Platelet Volume 7.1 FL Neutrophils (%) (Auto) 54.4 % Lymphocytes (%) (Auto) 22.5 % Monocytes (%) (Auto) 10.6 % Eosinophils (%) (Auto) 12.1 % Basophils (%) (Auto) 0.4 % Neutrophils # (Auto) 2.2 TH/MM3 Lymphocytes # (Auto) 0.9 TH/MM3 Monocytes # (Auto) 0.4 TH/MM3 Eosinophils # (Auto) 0.5 TH/MM3 Basophils # (Auto) 0.0 TH/MM3 CBC Comment DIFF FINAL Differential Comment Blood Urea Nitrogen 31 MG/DL Creatinine 2.62 MG/DL Random Glucose 113 MG/DL Total Protein 6.3 GM/DL Albumin 2.7 GM/DL Calcium Level 8.5 MG/DL Alkaline Phosphatase 111 U/L Aspartate Amino Transf (AST/SGOT) 31 U/L Alanine Aminotransferase (ALT/SGPT) 54 U/L Total Bilirubin 0.3 MG/DL Sodium Level 140 MEQ/L Potassium Level 3.3 MEQ/L Chloride Level 96 MEQ/L Carbon Dioxide Level 37.5 MEQ/L Anion Gap 7 MEQ/L Estimat Glomerular Filtration Rate 18 ML/MIN Administered Medications Medications (Trade) Dose Ordered Sig/Thaddeus Route PRN Reason Start Time Stop Time Status Last Admin Dose Admin Senna/Docusate Sodium (Maddy-Colace) 1 tab BID PO 07/15/17 09:00 08/13/17 21:18 Magnesium Hydroxide (Milk Of Magnesia Liq) 30 ml Q12H PRN PO Mild constipation 07/14/17 22:15 08/08/17 10:03 Sennosides (Senokot) 17.2 mg Q12H PRN PO Moderate constipation 07/14/17 22:15 07/31/17 22:58 Bisacodyl (Dulcolax Supp) 10 mg DAILY PRN RECTAL SEVERE CONSITIPATION/ IF NPO 07/14/17 22:15 08/07/17 22:05 Lactulose (Lactulose Liq) 30 ml DAILY PRN PO SEVERE CONSITIPATION/ IF PO 07/14/17 22:15 08/02/17 09:39 Albuterol Sulfate (Albuterol Neb) 2.5 mg Q4HR NEB PRN NEB sob/wheezing 07/14/17 22:30 07/14/17 23:41 Allopurinol (Zyloprim) 100 mg BID PO 07/15/17 09:00 08/13/17 21:18 Atorvastatin Calcium (Lipitor) 40 mg HS PO 07/15/17 21:00 08/13/17 21:17 Citalopram Hydrobromide (CeleXA) 20 mg DAILY PO 07/15/17 09:00 08/13/17 09:46 Levothyroxine Sodium (Synthroid) 150 mcg DAILY@0700 PO 07/15/17 07:00 08/14/17 05:20 Quetiapine Fumarate (SEROquel) 25 mg HS PO 07/15/17 21:00 08/13/17 21:18 Chlorhexidine Gluconate (Peridex 0.12% Liq) 15 ml BID@08,20 MT 07/16/17 20:00 08/01/17 20:00 Chlorhexidine Gluconate (Chlorhexidine 2% Cloth) Taper DAILY@04 TOP 07/17/17 04:00 07/13/18 03:59 07/29/17 04:00 Heparin Sodium (Porcine) (Heparin Central Flush) See Protocol DAILY IV FLUSH 07/17/17 09:00 08/13/17 09:44 Heparin Sodium (Porcine) (Heparin Central Flush) See Protocol UNSCH PRN IV FLUSH SEE PROTOCOL TABLE 07/16/17 19:30 08/09/17 05:52 Sodium Chloride (NS Flush) UNSCH PRN IV FLUSH SEE PROTOCOL TABLE 07/16/17 19:30 08/12/17 11:34 Sodium Chloride (NS Flush) See Protocol UNSCH PRN IV FLUSH FLUSH AFTER USING IV ACCESS 07/16/17 19:30 08/06/17 10:29 Docusate Sodium (Colace) 100 mg BID PO 07/17/17 21:00 08/13/17 21:18 Ondansetron HCl (Zofran Inj) 4 mg Q6H PRN IV PUSH NAUSEA OR VOMITING 07/17/17 10:45 08/09/17 06:03 Acetaminophen/ Hydrocodone Bitart ([place] 10-325 Mg) 1 tab Q4H PRN PO PAIN SCALE 1 TO 5 07/17/17 11:45 07/30/17 04:36 Acetaminophen/ Hydrocodone Bitart ([place] 10-325 Mg) 2 tab Q4H PRN PO PAIN SCALE 6 TO 10 07/17/17 11:45 07/24/17 15:43 Morphine Sulfate (Morphine Inj) 4 mg Q2H PRN IV PUSH PAIN SCALE 7 TO 10 07/17/17 11:45 07/20/17 09:44 Acetaminophen (Tylenol) 650 mg Q4H PRN PO TEMPERATURE > 101.5 F 07/17/17 11:45 08/10/17 15:19 Phenytoin (Dilantin) 100 mg Q8HR PO 07/22/17 14:00 Future Hold 07/25/17 13:35 Ferrous Sulfate (Ferrous Sulfate) 325 mg DAILY PO 07/24/17 09:00 08/13/17 09:50 Dexamethasone (Decadron) 4 mg Q6HR PO 08/01/17 18:00 08/14/17 05:20 Levetriacetam (Keppra) 1,000 mg Q12HR PO 08/02/17 21:00 08/13/17 21:18 Phenytoin (Dilantin) 100 mg Q8HR PO 08/02/17 14:00 08/14/17 05:20 Famotidine (Pepcid) 10 mg BID PO 08/11/17 09:00 08/13/17 21:00 Sodium Bicarbonate 100 meq/Dextrose 1,100 ml @ 150 mls/hr Q7H20M IV 08/11/17 10:00 08/14/17 03:15 Leucovorin Calcium 100 mg/ Sodium Chloride 50 ml @ 400 mls/hr Q6H IV 08/14/17 09:00 08/14/17 09:22 Objective Remarks GENERAL: Middle aged female, upright in bed in nad. SKIN: Warm and dry. HEAD: Normocephalic. EYES: No injection or drainage. NECK: Supple, trachea midline. CARDIOVASCULAR: Regular rate and rhythm RESPIRATORY: anterior lewis clear. on 2L O2 via NC GASTROINTESTINAL: Abdomen soft, non-tender, nondistended. EXTREMITIES: No cyanosis NEUROLOGICAL: awake. moving all extremities. persistent but improved weakness in right arm and leg. 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 received 6 cycles of R-CHOP under the direction of Dr. Alves at [facility] in [place] (was in remission) (2) Bundle branch block ICD Codes: I45.4 - Nonspecific intraventricular block Plan: --appreciate cardiology assistance. --recommend waiting until methotrexate levels are <0.01 before starting ASA therapy as there is a potential for interaction. (3) Renal insufficiency ICD Codes: N28.9 - Disorder of kidney and ureter, unspecified Plan: --improving, appreciate nephrology assistance. 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 Plan 1. continue leucovorin at 100mg IV q 6. 2. monitor methotrexate and renal function daily 3. continue IVF. monitor urine pH Attending Statement The exam, history, and the medical decision-making described in the above note were completed with the assistance of the mid-level provider. I reviewed and agree with the findings presented. I attest that I had a [id number] encounter with the patient on the same day, and personally performed and documented my assessment and findings in the medical record. 61 yoF with LITHARGE SUPERVISOR relpase of lymphoma. s/p HD mtx with rituximab. Improved mental status and improved right sided strength. Also improving is right sided neglect that was present previously. ARF with improving creatinine. Continue leucovorin until mtx less than 0.05. Problem Qualifiers (1) B-cell lymphoma: Qualified Codes: C85.10 - Unspecified B-cell lymphoma, unspecified site Yin Still August 14, 2017 10:33 Evy Melendez MD August 14, 2017 17:15
[2017-08-14] MEDS: CITALOPRAM HYDROBROMIDE 20 MG TAB PO SCH (11:30)
[2017-08-14] MEDS: ALLOPURINOL 100 MG TAB PO SCH ×2 (11:30→21:19)
[2017-08-14] MEDS: FERROUS SULFATE 325 MG (65 MG ELEMENTAL IRON) TAB PO SCH (11:30)
[2017-08-14] MEDS: FAMOTIDINE 20 MG TAB PO SCH ×2 (11:30→21:19)
[2017-08-14] MEDS: DOCUSATE SODIUM 50 MG/SENNA 8.6 MG TAB PO SCH ×2 (11:31→21:19)
[2017-08-14] MEDS: levETIRAcetam 500 MG TAB PO SCH ×2 (11:31→21:19)
[2017-08-14] MEDS: DOCUSATE SODIUM 100 MG CAP PO SCH ×2 (11:37→21:19)
--- NOTE | 2017-08-14 12:42 | HHI.NPPN ---
Subjective Renal Failure: Acute History of Present Illness 62-year-old female with past medical history of hypertension, chronic obstructive pulmonary disease, hypothyroidism, history of non-Hodgkin's lymphoma, hyperlipidemia, cerebrovascular accident, was admitted on 07/14/2017 because of brain mass and possibility of subacute hemorrhage. Additional Remarks Patient is alert, no SOB, sitting up in chair. (Marisel Durham) Review of Systems General Constitutional: Fatigue (Marisel Durham) Objective Data Data Vital Signs Date Time Temp Pulse Resp B/P (MAP) Pulse Ox O2 Delivery O2 Flow Rate FiO2 08/14/17 04:00 49 08/14/17 04:00 98.3 52 20 114/65 (81) 92 08/14/17 00:00 60 08/14/17 00:00 98.5 53 18 115/60 (78) 97 08/13/17 20:00 61 08/13/17 20:00 Nasal Cannula 2.00 08/13/17 20:00 99.2 59 20 96/65 (75) 97 08/13/17 19:00 96 2.00 08/13/17 16:34 97.7 57 20 142/62 (88) 94 08/13/17 16:00 95 2.00 08/13/17 16:00 62 08/13/17 12:44 97.2 56 20 152/56 (88) 98 (Marisel Durham) -: 08/14/17 0705 08/14/17 0705 Imaging Last Impressions Chest X-Ray 08/13/17 0000 Signed Impressions: Service Date/Time: July 12:03 - CONCLUSION: 1. Improved aeration at the lung bases, presumably improved atelectasis. 2. Otherwise, no acute abnormality or significant interval change. Frankie Dao MD Renal Ultrasound 08/10/17 0000 Signed Impressions: Service Date/Time: Thursday, August 10, 2017 11:22 - CONCLUSION: 1. Hypoechoic lesion just superior to the right kidney likely represents right adrenal lesion. 2. Bilateral renal cysts. Orlando Tavarez MD Thyroid Ultrasound 07/30/17 0000 Signed Impressions: Service Date/Time: July 08:47 - CONCLUSION: 1. Diffusely heterogeneous multinodular thyroid gland. 2. 1.7 cm solid nodule in the inferior right lobe and 2 mixed nodules in the mid and inferior left pole meet criteria for fine needle aspiration. Frankie Dao MD Bone Biopsy CT 07/28/17 Signed Impressions: Service Date/Time: Friday, July 28, 2017 13:46 - CONCLUSION: 1. Uncomplicated CT guided bone marrow aspirate. 2. Uncomplicated CT guided bone marrow biopsy. Israel Garvin MD Lumbar Puncture Fluoroscopy 07/27/17 Signed Impressions: Service Date/Time: Thursday, July 27, 2017 15:37 - CONCLUSION: Uncomplicated fluoroscopically guided lumbar puncture with pressures as above. Kwasi Wilkins MD Chest CT 07/26/17 Signed Impressions: Service Date/Time: Thursday, July 27, 2017 15:56 - CONCLUSION: 1. Atelectasis at the lung bases but no lung mass or adenopathy. No effusions. 2. Numerous bilateral thyroid nodules measuring up to about 1.5 cm in diameter. See abdomen CT for findings below the diaphragm. Job Barrera MD Abdomen/Pelvis CT 07/26/17 Signed Impressions: Service Date/Time: Thursday, July 27, 2017 15:56 - CONCLUSION: 1. No acute findings abdomen pelvic CT. No definite evidence for metastatic disease. 2.5 cm likely right adrenal adenoma. 2. Mild fatty liver. Job Barrera MD Head CT 07/25/17 Signed Impressions: Service Date/Time: Tuesday, July 25, 2017 14:37 - CONCLUSION: Persistent 3.2 cm mass seen in the left basal ganglia/caudate region. This appears more prominent. This demonstrates increased density which could represent some degree of hemorrhage. Some increased density was present on the prior postoperative CT examination. The previously seen air has resolved. There continues to be vasogenic edema and focal left to right midline shift. Israel Davis MD Brain MRI 07/15/17 Signed Impressions: Service Date/Time: Saturday, July 15, 2017 15:42 - CONCLUSION: Left basal ganglia mass with moderate associated vasogenic edema. Mild-moderate hemispheric mass effect. Serpiginous enhancement in the contralateral right mid to high convexity frontal region. Israel Ruelas MD (Marisel Durham [facility]) Physical Exam General Appearance: Well Nourished, No Acute Distress, Comfortable (Marisel Durham) Eyes Eye Exam: Pupils Equal (Marisel Durham) Throat Throat Exam: Oral Mucosa [place] & Moist (Marisel Durham) Neck Neck Exam: Neck Supple, Trachea Midline (Marisel Durham) Pulmonary Resp Exam: Clear Bilaterally, Breath Sounds Equal, No Distress, Decreased Bases (Marisel Durham) Cardiology CV Exam: Regular, Normal Sinus Rhythm (Marisel Durham) Gastrointestinal/Abdomen GI Exam: Soft, Non-Tender, Bowel Sounds Present (Marisel Durham) Extremeties Extremities Exam: Trace Edema (Marisel Durham) Neurologic Neuro Exam: Alert, Awake, Oriented (Marisel Durham) Psychiatric Psych Exam: Appropriate Responses (Marisel Durham) Assessment/Plan Assessment Summary: JJ/Acute Renal Failure Problem List: (1) Hyperlipidemia ICD Codes: E78.5 - Hyperlipidemia, unspecified (2) Seizure ICD Codes: R56.9 - Unspecified convulsions (3) Hypertension ICD Codes: I10 - Essential (primary) hypertension (4) B-cell lymphoma ICD Codes: C85.10 - Unspecified B-cell lymphoma, unspecified site (5) Brain mass ICD Codes: G93.9 - Disorder of brain, unspecified (6) Renal insufficiency ICD Codes: N28.9 - Disorder of kidney and ureter, unspecified Plan Patient develop JJ, Most likely has ATN due to Chemotherapy. Remains non oliguric with urinary output of 2.0 L/24 hours Renal U/S noted. Urine Sodium is normal, not low. Urine Eosinophils negative. Creatinine improving at 2.62 from 2.94 IVF discontinued and fluids encouraged Follow the urine out put and BMP. (Marisel Durham) Plan Patient seen and examined, agree with above. Creatinine continue to improve. (Lisandro Winters MD) Problem Qualifiers (1) B-cell lymphoma: Qualified Codes: C85.10 - Unspecified B-cell lymphoma, unspecified site Marisel Durham August 14, 2017 12:42 Lisandro Winters MD August 17, 2017 19:30
[2017-08-14] MEDS ORDERED: POTASSIUM CHLORIDE 20 MEQ CONTROLLED RELEASE TAB PO ONE (14:00)
--- NOTE | 2017-08-14 18:50 | HHI.PR ---
Subjective Remarks Patient sitting on the chair pleasant awake alert denied complain, daughter at the bedside who is translating Creatinine improved to 2.6 Patient continue on leucovorin for a goal NTX less than 0.05 appreciate oncology follow-up Objective Vitals Vital Signs Date Time Temp Pulse Resp B/P (MAP) Pulse Ox O2 Delivery O2 Flow Rate FiO2 08/14/17 17:09 58 08/14/17 17:09 96 2.00 08/14/17 16:58 95 Nasal Cannula 2.00 08/14/17 16:56 98.2 60 20 125/69 (87) 96 08/14/17 16:05 52 08/14/17 16:00 57 08/14/17 08:00 98.1 58 20 122/63 (82) 98 08/14/17 08:00 60 08/14/17 08:00 96 2.00 08/14/17 04:00 49 08/14/17 04:00 98.3 52 20 114/65 (81) 92 08/14/17 00:00 60 08/14/17 00:00 98.5 53 18 115/60 (78) 97 08/13/17 20:00 61 08/13/17 20:00 Nasal Cannula 2.00 08/13/17 20:00 99.2 59 20 96/65 (75) 97 08/13/17 19:00 96 2.00 I/O 08/13/17 08/13/17 08/13/17 08/14/17 08/14/17 08/14/17 07:00 15:00 23:00 07:00 15:00 23:00 Intake Total 50 ml 2250 ml 240 ml Output Total 850 ml 500 ml 1575 ml 800 ml Balance -850 ml -450 ml 2250 ml -1335 ml -800 ml Intake Oral 600 ml 240 ml IV Total 50 ml 1650 ml Output Urine Total 850 ml 500 ml 1575 ml 800 ml # Voids 2 1 2 # Bowel Movements 1 Result Diagram: 08/14/1770408/14/17704 Objective Remarks GENERAL: This is a well-nourished, well-developed patient, in no apparent distress. CARDIOVASCULAR: RRR, no gallops, or rubs. RESPIRATORY: Fair air entry bilaterally. No W, R, or R GASTROINTESTINAL: Abdomen soft, non-tender, nondistended. Positive bowel sounds MUSCULOSKELETAL: Extremities without clubbing, cyanosis, or edema. Pedal pulses appreciated NEUROLOGICAL: Awake and alert. Able to speak in Georgian Procedures Date of Surgery: Jul 17, 2017 Preoperative Diagnosis: Left basal ganglia brain mass Postoperative Diagnosis: Left basal ganglia RECREATIONAL SPECIALIST lymphoma Procedure: Stereotactic biopsy of Left basal ganglia brain mass Anesthesia: general endotracheal Surgeon: Miguel Sutton Hotel Operations Manager(s): Eva Smith Operation and Findings: INDICATIONS FOR THE PROCEDURE Ms Sun is a 61 year-old female who presented with neurological findings of right sided weakness and was found to have left basal ganglia enhancing mass. The lesions had abnormal signal intensity and and characteristics consistent with a possible neoplastic, inflammatory, or infectious process. A stereotactic biopsy of the lesions was indicated. The [id number] details of the procedure, its indications, alternatives, risks and potential complications were fully discussed with the patient. The patient fully understood. All questions were answered. No guarantees were given. The patient voiced requesting the procedure and provided informed consents. The patient was offered the alternative of not having aggressive management. DETAILS OF THE SURGICAL PROCEDURE Preoperative planning Prior to the surgery the patient underwent an MRI of the brain according to the stereotactic protocol. The information from the MRI scan was transferred to the operating room via the hospital network and the preoperative planning of the lesion was made. A julia was made at the patients operative site according to the hospital policy. Surgical positioning The patient was then brought to the operating room. After induction of general anesthesia endotracheal intubation was performed. Bkilateral carlos hose and sequential compression devices were placed and kept throughout the procedure. The patient was positioned supine on a 3080 table over a soft mattress. All pressure points were carefully padded with an egg crate mattress. The eyes were tapped shut after ointment was applied by the anesthesiologist to prevent corneal abrasion. A Shannon hugger was placed over the exposed lower body to maintain control of the core body temperature. The head was held in rigid fixation using the Bravo head bander and liner operator. Intraoperative registration The rigid body was attached to the Bravo headholder. Intraoperative registration was then performed with the BrainEncite. The lesion was located in the three planes, sagittal, axial and coronal. An entry point was selected in the scalp. Surgical Approach and stereotactic biopsy The skin was prepped and draped in the usual sterile fashion. A linear incision in the left frontal region selected by the planning was outlined. The area was infiltrated with 1% lidocaine with epinephrine 1:100,000 dilution. A skin incision was made with a #10 blade. Small subgaleal bleeders were controlled with a bipolar a small self-retaining retractor was placed in the incision. The fascia and muscle were incised with a Bovie and retracted at each side. The Midas Freddy was brought into the field and a bur hole was made with an AM-8 drill bit. The duramatter was coagulated with a bipolar and opening increased for pressure and a very small corticotomy performed. At this point of the procedure the stereotactic biopsy arm was brought into the field and secured to the head bander and liner operator. The acid supervisor was brought into the field, and the trajectory on the biopsy arm was created following the previously selected trajectory. Then, a stereotactic needle was carefully inserted into the brain at the center of the lesion and by gentle aspiration two initial biopsies were obtained, one of which was sent to the lab for frozen section, while the second kept for permanent histological annalysis. Meanwhile, additional specimens were obtained for permanent histologic analysis. At this point in the procedure , after waiting for awhile, the frozen section was called in and reported as lymphoma. The biopsy needle was carefully removed and the stereotactic device was removed. The incision was irrigated with a large amount of saline. A piece of Gelfoam was placed over the surface of the brain and a bur hole cover was placed. The incision was closed in layers. 3-0 Vicryl with interrupted sutures were used to close the fascial layers and galea. The skin was closed with chip. A sterile dressing was applied. At the end of the procedure the sponge, needle and instrument counts were all correct. Estimated blood loss was minimal. No blood transfusion was given. The patient received preoperative prophylactic antibiotics. No intraoperative complications occurred. The patient was transferred to the recovery room in stable condition. Miguel Sutton MD Jul 17, 2017 17:40 A/P Problem List: (1) Brain mass ICD Code: G93.9 - Disorder of brain, unspecified (2) Dementia without behavioral disturbance ICD Code: F03.90 - Unspecified dementia without behavioral disturbance (3) Hypertension ICD Code: I10 - Essential (primary) hypertension (4) Hyperlipidemia ICD Code: E78.5 - Hyperlipidemia, unspecified (5) Seizure ICD Code: R56.9 - Unspecified convulsions Assessment and Plan 08/12: Continue current care, follow with oncology, Repeat CBC BMP in a.m., monitor temperature, blood pressure 08/13: Continue monitoring CBC, nephrology following, continue PT OT, monitor blood pressure, discussed with the daughter 08/14:Patient sitting on the chair pleasant awake alert denied complain, daughter at the bedside who is translating Creatinine improved to 2.6 Patient continue on leucovorin for a goal NTX less than 0.05 appreciate oncology follow-up a/p: 61-year-old female admitted secondary to encephalopathy found to be related to 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 -Plan for chemo hem onc ff/ However patient can be transferred back to [facility] to resume chemo there. Hem/onc will get in touch with oncologist at [facility]. unabvle to do chemo at [place] apparently Continue working with PT. 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 with vasogenic edema and midline shift status post biopsy Continue steroids Continue to follow clinically Neurology following //Hypothyroidism, chronic Continue supplements Follows as outpatient //Hypertension Continue baseline treatment Follow blood pressures Adjust treatments as needed //Asthma No exacerbation Breathing treatments as needed //H/o ischemic CVA with possible seizure activity at the time of the CVA - no seizures since and does not take AEDs Monitor for any seizure activity Continue Keppra PO Cerebyx 100mg Q8 DCd and change to phenytoin PO continue //Hyperlipidemia Continue present treatment Follow as an outpatient //Bipolar disorder No change to baseline treatments //Obstructive sleep apnea CPAP //Generalize physical deficit May be contributory by brain edema Continue physical therapy //DVT prophylaxis //GI prophylaxis. Pepcid as patient is on steroids. Bleed risk is present SCDs Discharge Planning Continues on chemotherapy per heme oncology. DC when cleared by oncology. Manuel Aguilar MD August 14, 2017 18:50
[2017-08-14] MEDS: QUEtiapine FUMARATE 25 MG TAB PO SCH (21:19)
[2017-08-14] MEDS: ATORVASTATIN 40 MG TAB PO SCH (21:20)
[2017-08-15] VITALS (8 sets, daily range): BP systolic 103–112; BP diastolic 57–68; PULSE 51–65; RESP 18–20; TEMP 98.1–98.6; O2SAT 92–96
[2017-08-15] MEDS: DEXAMETHASONE 4 MG TAB PO SCH ×4 (00:53→17:40)
[2017-08-15] MEDS: PHENYTOIN SODIUM 100 MG CAP PO SCH ×3 (00:53→17:40)
[2017-08-15] MEDS: SODIUM BICARBONATE 8.4% INJ 100 MEQ in DEXTROSE 5% IN WATE 1000ML INJ 1,000 ML IV SCH ×6 (00:55→20:34)
[2017-08-15] MEDS: CHLORHEXIDINE GLUCONATE 2 % 1 PACK (2 CLOTHS) TOP SCH (04:00)
[2017-08-15] MEDS: SODIUM CHLORIDE 0.9% IV SCH ×4 (04:44→20:09)
[2017-08-15] MEDS: LEUCOVORIN IV SCH ×4 (04:44→20:09)
[2017-08-15] MEDS: LEVOTHYROXINE SODIUM 150 MCG TAB PO SCH (05:06)
[2017-08-15 05:45] LABS: AUTOMATED NEUTROPHIL # 5.1 TH/MM3 (1.8-7.7); BASOPHIL % 0.3 % (0.0-2.0); EOSINOPHIL # 0.5 TH/MM3 (0-0.4); EOSINOPHIL % 6.5 % (0.0-4.0); HEMATOCRIT 25.1 % (35.0-46.0); HEMOGLOBIN 8.6 GM/DL (11.6-15.3); LYMPH % 14.2 % (9.0-44.0); MEAN CELL VOLUME 94.7 FL (80.0-100.0); MEAN CORPUSCULAR HEMOGLOBIN 32.6 PG (27.0-34.0); MEAN CORPUSCULAR HGB CONC 34.5 % (32.0-36.0); MEAN PLATELET VOLUME 7.3 FL (7.0-11.0); MONO % 8.9 % (0.0-8.0); MONOCYTE # 0.6 TH/MM3 (0-0.9); NEUT % 70.1 % (16.0-70.0); PLATELET COUNT 248 TH/MM3 (150-450); RED BLOOD COUNT 2.65 MIL/MM3 (4.00-5.30); RED CELL DISTRIBUTION WIDTH 13.7 % (11.6-17.2); WHITE BLOOD COUNT 7.2 TH/MM3 (4.0-11.0)
[2017-08-15 06:10] LABS: ALBUMIN 2.7 GM/DL (3.4-5.0); ALT (GPT) 52 U/L (10-53); AST (GOT) 29 U/L (15-37); BICARBONATE 36.3 MEQ/L (21.0-32.0); BLOOD UREA NITROGEN 32 MG/DL (7-18); CALCIUM 8.7 MG/DL (8.5-10.1); CHLORIDE 97 MEQ/L (98-107); CREATININE 2.59 MG/DL (0.50-1.00); GLOMERULAR FILTRATION RATE 19 ML/MIN (>89); GLUCOSE,RANDOM 116 MG/DL (74-106); SODIUM (NA) 141 MEQ/L (136-145)
[2017-08-15 06:13] LABS: ALKALINE PHOSPHATASE 120 U/L (45-117); TOTAL BILIRUBIN ADULT 0.3 MG/DL (0.2-1.0); TOTAL PROTEIN 6.4 GM/DL (6.4-8.2)
[2017-08-15] MEDS: CHLORHEXIDINE 0.12% (ORAL KIT) 15 ML CUP MT SCH ×2 (08:00→20:00)
--- NOTE | 2017-08-15 08:44 | PD.ONC.PN ---
Subjective Subjective Remarks Afebrile Patient's daughter believes she is improving with her speech and activity IV fluids, leucovorin continues Objective Data Date Time Temp Pulse Resp B/P (MAP) Pulse Ox O2 Delivery O2 Flow Rate FiO2 08/15/17 04:46 98.4 58 18 112/65 (81) 94 08/15/17 00:51 98.5 57 18 108/64 (79) 95 08/15/17 00:04 59 08/14/17 21:19 94 2.00 08/14/17 21:12 98.5 66 20 116/65 (82) 94 08/14/17 20:21 63 08/14/17 17:09 58 08/14/17 17:09 96 2.00 08/14/17 16:58 95 Nasal Cannula 2.00 08/14/17 16:56 98.2 60 20 125/69 (87) 96 08/14/17 16:05 52 08/14/17 16:00 57 08/15/17 08/15/17 08/15/17 07:00 15:00 23:00 Intake Total 240 ml Output Total 700 ml Balance -460 ml Result Diagram: 08/15/17 0500 08/15/17 0500 Laboratory Results Laboratory Tests Test 08/14/17 17:00 08/15/17 05:00 08/15/17 06:10 Urine pH 8.0 8.5 White Blood Count 7.2 TH/MM3 Red Blood Count 2.65 MIL/MM3 Hemoglobin 8.6 GM/DL Hematocrit 25.1 % Mean Corpuscular Volume 94.7 FL Mean Corpuscular Hemoglobin 32.6 PG Mean Corpuscular Hemoglobin Concent 34.5 % Red Cell Distribution Width 13.7 % Platelet Count 248 TH/MM3 Mean Platelet Volume 7.3 FL Neutrophils (%) (Auto) 70.1 % Lymphocytes (%) (Auto) 14.2 % Monocytes (%) (Auto) 8.9 % Eosinophils (%) (Auto) 6.5 % Basophils (%) (Auto) 0.3 % Neutrophils # (Auto) 5.1 TH/MM3 Lymphocytes # (Auto) 1.0 TH/MM3 Monocytes # (Auto) 0.6 TH/MM3 Eosinophils # (Auto) 0.5 TH/MM3 Basophils # (Auto) 0.0 TH/MM3 CBC Comment DIFF FINAL Differential Comment Blood Urea Nitrogen 32 MG/DL Creatinine 2.59 MG/DL Random Glucose 116 MG/DL Total Protein 6.4 GM/DL Albumin 2.7 GM/DL Calcium Level 8.7 MG/DL Alkaline Phosphatase 120 U/L Aspartate Amino Transf (AST/SGOT) 29 U/L Alanine Aminotransferase (ALT/SGPT) 52 U/L Total Bilirubin 0.3 MG/DL Sodium Level 141 MEQ/L Potassium Level 3.6 MEQ/L Chloride Level 97 MEQ/L Carbon Dioxide Level 36.3 MEQ/L Anion Gap 8 MEQ/L Estimat Glomerular Filtration Rate 19 ML/MIN Administered Medications Medications (Trade) Dose Ordered Sig/Thaddeus Route PRN Reason Start Time Stop Time Status Last Admin Dose Admin Senna/Docusate Sodium (Maddy-Colace) 1 tab BID PO 07/15/17 09:00 08/14/17 21:19 Magnesium Hydroxide (Milk Of Magnesia Liq) 30 ml Q12H PRN PO Mild constipation 07/14/17 22:15 08/08/17 10:03 Sennosides (Senokot) 17.2 mg Q12H PRN PO Moderate constipation 07/14/17 22:15 07/31/17 22:58 Bisacodyl (Dulcolax Supp) 10 mg DAILY PRN RECTAL SEVERE CONSITIPATION/ IF NPO 07/14/17 22:15 08/07/17 22:05 Lactulose (Lactulose Liq) 30 ml DAILY PRN PO SEVERE CONSITIPATION/ IF PO 07/14/17 22:15 08/02/17 09:39 Albuterol Sulfate (Albuterol Neb) 2.5 mg Q4HR NEB PRN NEB sob/wheezing 07/14/17 22:30 07/14/17 23:41 Allopurinol (Zyloprim) 100 mg BID PO 07/15/17 09:00 08/14/17 21:19 Atorvastatin Calcium (Lipitor) 40 mg HS PO 07/15/17 21:00 08/14/17 21:20 Citalopram Hydrobromide (CeleXA) 20 mg DAILY PO 07/15/17 09:00 08/14/17 11:30 Levothyroxine Sodium (Synthroid) 150 mcg DAILY@0700 PO 07/15/17 07:00 08/15/17 05:06 Quetiapine Fumarate (SEROquel) 25 mg HS PO 07/15/17 21:00 08/14/17 21:19 Chlorhexidine Gluconate (Peridex 0.12% Liq) 15 ml BID@08,20 MT 07/16/17 20:00 08/01/17 20:00 Chlorhexidine Gluconate (Chlorhexidine 2% Cloth) Taper DAILY@04 TOP 07/17/17 04:00 07/13/18 03:59 07/29/17 04:00 Heparin Sodium (Porcine) (Heparin Central Flush) See Protocol DAILY IV FLUSH 07/17/17 09:00 08/14/17 11:32 Heparin Sodium (Porcine) (Heparin Central Flush) See Protocol UNSCH PRN IV FLUSH SEE PROTOCOL TABLE 07/16/17 19:30 08/09/17 05:52 Sodium Chloride (NS Flush) UNSCH PRN IV FLUSH SEE PROTOCOL TABLE 07/16/17 19:30 08/12/17 11:34 Sodium Chloride (NS Flush) See Protocol UNSCH PRN IV FLUSH FLUSH AFTER USING IV ACCESS 07/16/17 19:30 08/06/17 10:29 Docusate Sodium (Colace) 100 mg BID PO 07/17/17 21:00 08/14/17 21:19 Ondansetron HCl (Zofran Inj) 4 mg Q6H PRN IV PUSH NAUSEA OR VOMITING 07/17/17 10:45 08/09/17 06:03 Acetaminophen/ Hydrocodone Bitart (Minonk 10-325 Mg) 1 tab Q4H PRN PO PAIN SCALE 1 TO 5 07/17/17 11:45 07/30/17 04:36 Acetaminophen/ Hydrocodone Bitart (Minonk 10-325 Mg) 2 tab Q4H PRN PO PAIN SCALE 6 TO 10 07/17/17 11:45 07/24/17 15:43 Morphine Sulfate (Morphine Inj) 4 mg Q2H PRN IV PUSH PAIN SCALE 7 TO 10 07/17/17 11:45 07/20/17 09:44 Acetaminophen (Tylenol) 650 mg Q4H PRN PO TEMPERATURE > 101.5 F 07/17/17 11:45 08/10/17 15:19 Phenytoin (Dilantin) 100 mg Q8HR PO 07/22/17 14:00 Future Hold 07/25/17 13:35 Ferrous Sulfate (Ferrous Sulfate) 325 mg DAILY PO 07/24/17 09:00 08/14/17 11:30 Dexamethasone (Decadron) 4 mg Q6HR PO 08/01/17 18:00 08/15/17 05:06 Levetriacetam (Keppra) 1,000 mg Q12HR PO 08/02/17 21:00 08/14/17 21:19 Famotidine (Pepcid) 10 mg BID PO 08/11/17 09:00 08/14/17 21:19 Leucovorin Calcium 100 mg/ Sodium Chloride 50 ml @ 400 mls/hr Q6H IV 08/14/17 09:00 08/15/17 04:44 Sodium Bicarbonate 100 meq/Dextrose 1,100 ml @ 100 mls/hr Q11H IV 08/14/17 14:00 08/15/17 00:55 Phenytoin (Dilantin) 100 mg Q8H PO 08/15/17 01:00 08/15/17 00:53 Objective Remarks GENERAL: Middle aged female asleep in bed in no obvious distress SKIN: Warm and dry. HEAD: Normocephalic. EYES: No injection or drainage. NECK: Supple, trachea midline. CARDIOVASCULAR: Regular rate and rhythm RESPIRATORY: Anterior lewis clear. on 2L O2 via NC GASTROINTESTINAL: Abdomen soft, non-tender, nondistended. EXTREMITIES: No cyanosis. No edema NEUROLOGICAL: Awake and alert. Has right-sided weakness but this is improved. 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 received 6 cycles of R-CHOP under the direction of Dr. Alves at [facility] in [place] (was in remission) (2) Bundle branch block ICD Codes: I45.4 - Nonspecific intraventricular block Plan: --appreciate cardiology assistance. --recommend waiting until methotrexate levels are <0.01 before starting ASA therapy as there is a potential for interaction. (3) Renal insufficiency ICD Codes: N28.9 - Disorder of kidney and ureter, unspecified Plan: --improving, appreciate nephrology assistance. (4) Confusion ICD Codes: R41.0 - Disorientation, unspecified Assessment 61y/o female with UNDERCUTTER lymphoma. Plan 1. Continue leucovorin and IV fluids. 2. Await results of methotrexate level. Will stop leucovorin once it is less than 0.05. 3. Like to keep a positive fluid balance on patient daily. 4. Monitor CMP, urine pH Attending Statement The exam, history, and the medical decision-making described in the above note were completed with the assistance of the mid-level provider. I reviewed and agree with the findings presented. I attest that I had a [id number] encounter with the patient on the same day, and personally performed and documented my assessment and findings in the medical record. Denies headache, right hand weakness stronger. MTX level trending down. Continue leucovorin. Problem Qualifiers (1) B-cell lymphoma: Qualified Codes: C85.10 - Unspecified B-cell lymphoma, unspecified site Sho Reaves August 15, 2017 08:44 Julio C Rawls MD August 15, 2017 13:16
[2017-08-15] MEDS: DOCUSATE SODIUM 50 MG/SENNA 8.6 MG TAB PO SCH ×2 (11:37→20:08)
[2017-08-15] MEDS: FAMOTIDINE 20 MG TAB PO SCH ×2 (11:37→20:09)
[2017-08-15] MEDS: levETIRAcetam 500 MG TAB PO SCH ×2 (11:37→20:08)
[2017-08-15] MEDS: ALLOPURINOL 100 MG TAB PO SCH ×2 (11:37→20:08)
[2017-08-15] MEDS: FERROUS SULFATE 325 MG (65 MG ELEMENTAL IRON) TAB PO SCH (11:37)
[2017-08-15] MEDS: CITALOPRAM HYDROBROMIDE 20 MG TAB PO SCH (11:37)
[2017-08-15] MEDS: DOCUSATE SODIUM 100 MG CAP PO SCH ×2 (11:37→20:08)
[2017-08-15] MEDS: MAGNESIUM HYDROXIDE SUSP 30 ML CUP PO PRN (11:56)
[2017-08-15] MEDS: SENNOSIDES 8.6 MG TAB PO PRN (11:57)
--- NOTE | 2017-08-15 14:30 | HHI.NPPN ---
Subjective Renal Failure: Acute History of Present Illness 62-year-old female with past medical history of hypertension, chronic obstructive pulmonary disease, hypothyroidism, history of non-Hodgkin's lymphoma, hyperlipidemia, cerebrovascular accident, was admitted on 07/14/2017 because of brain mass and possibility of subacute hemorrhage. Additional Remarks No acute complaints Review of Systems General Constitutional: Fatigue Objective Data Data Vital Signs Date Time Temp Pulse Resp B/P (MAP) Pulse Ox O2 Delivery O2 Flow Rate FiO2 08/15/17 12:00 98.4 64 18 111/68 (82) 96 08/15/17 04:46 98.4 58 18 112/65 (81) 94 08/15/17 00:51 98.5 57 18 108/64 (79) 95 08/15/17 00:04 59 08/14/17 21:19 94 2.00 08/14/17 21:12 98.5 66 20 116/65 (82) 94 08/14/17 20:21 63 08/14/17 17:09 58 08/14/17 17:09 96 2.00 08/14/17 16:58 95 Nasal Cannula 2.00 08/14/17 16:56 98.2 60 20 125/69 (87) 96 08/14/17 16:05 52 08/14/17 16:00 57 -: 08/15/17 0500 08/15/17 0500 Physical Exam General Appearance: Well Nourished, No Acute Distress, Comfortable Eyes Eye Exam: Pupils Equal Throat Throat Exam: Oral Mucosa [employer] & Moist Neck Neck Exam: Neck Supple, Trachea Midline Pulmonary Resp Exam: Clear Bilaterally, Breath Sounds Equal, No Distress, Decreased Bases Cardiology CV Exam: Regular, Normal Sinus Rhythm Gastrointestinal/Abdomen GI Exam: Soft, Non-Tender, Bowel Sounds Present Extremeties Extremities Exam: Trace Edema Neurologic Neuro Exam: Alert, Awake, Oriented Psychiatric Psych Exam: Appropriate Responses Assessment/Plan Assessment Summary: JJ/Acute Renal Failure Problem List: (1) Hyperlipidemia ICD Codes: E78.5 - Hyperlipidemia, unspecified (2) Seizure ICD Codes: R56.9 - Unspecified convulsions (3) Hypertension ICD Codes: I10 - Essential (primary) hypertension (4) B-cell lymphoma ICD Codes: C85.10 - Unspecified B-cell lymphoma, unspecified site (5) Brain mass ICD Codes: G93.9 - Disorder of brain, unspecified (6) Renal insufficiency ICD Codes: N28.9 - Disorder of kidney and ureter, unspecified Plan Patient developed JJ, Most likely has ATN due to Chemotherapy. Remains non oliguric with urinary output of 2.4 L/24 hours Renal U/S noted. Urine Sodium is normal, not low. Urine Eosinophils negative. Creatinine improving at 2.59 from 2.62 Continue to encourage PO fluid intake. Renal function stabilizing Follow the urine out put and BMP. Problem Qualifiers (1) B-cell lymphoma: Qualified Codes: C85.10 - Unspecified B-cell lymphoma, unspecified site Kwasi Bullard MD August 15, 2017 14:30
--- NOTE | 2017-08-15 15:09 | HHI.PR ---
Subjective Remarks Resting comfortably in bed awake alert Still on O2 nasal cannula I discussed with the daughter and with the nurse, will wean down O2 Objective Vitals Vital Signs Date Time Temp Pulse Resp B/P (MAP) Pulse Ox O2 Delivery O2 Flow Rate FiO2 08/15/17 12:00 98.4 64 18 111/68 (82) 96 08/15/17 04:46 98.4 58 18 112/65 (81) 94 08/15/17 00:51 98.5 57 18 108/64 (79) 95 08/15/17 00:04 59 08/14/17 21:19 94 2.00 08/14/17 21:12 98.5 66 20 116/65 (82) 94 08/14/17 20:21 63 08/14/17 17:09 58 08/14/17 17:09 96 2.00 08/14/17 16:58 95 Nasal Cannula 2.00 08/14/17 16:56 98.2 60 20 125/69 (87) 96 08/14/17 16:05 52 08/14/17 16:00 57 I/O 08/14/17 08/14/17 08/14/17 08/15/17 08/15/17 08/15/17 06:59 14:59 22:59 06:59 14:59 22:59 Intake Total 240 ml 2420 ml 240 ml Output Total 1575 ml 1700 ml 700 ml Balance -1335 ml 720 ml -460 ml Intake Oral 240 ml 1020 ml 240 ml IV Total 1400 ml Output Urine Total 1575 ml 1700 ml 700 ml # Voids 2 Result Diagram: 08/15/17 0500 08/15/17 0500 Objective Remarks GENERAL: This is a well-nourished, well-developed patient, in no apparent distress. CARDIOVASCULAR: RRR, no gallops, or rubs. RESPIRATORY: Fair air entry bilaterally. No W, R, or R GASTROINTESTINAL: Abdomen soft, non-tender, nondistended. Positive bowel sounds MUSCULOSKELETAL: Extremities without clubbing, cyanosis, or edema. Pedal pulses appreciated NEUROLOGICAL: Awake and alert. 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 The lesions had abnormal signal intensity and and characteristics consistent with a possible neoplastic, inflammatory, or infectious process. A stereotactic biopsy of the lesions was indicated. The [id number] details of the procedure, its indications, alternatives, risks and potential complications were fully discussed with the patient. The patient fully understood. All questions were answered. No guarantees were given. The patient voiced requesting the procedure and provided informed consents. The patient was offered the alternative of not having aggressive management. DETAILS OF THE SURGICAL PROCEDURE Preoperative planning Prior to the surgery the patient underwent an MRI of the brain according to the stereotactic protocol. The information from the MRI scan was transferred to the operating room via the hospital network and the preoperative planning of the lesion was made. A julia was made at the patients operative site according to the hospital policy. Surgical positioning The patient was then brought to the operating room. After induction of general anesthesia endotracheal intubation was performed. Bkilateral carlos hose and sequential compression devices were placed and kept throughout the procedure. The patient was positioned supine on a 3080 table over a soft mattress. All pressure points were carefully padded with an egg crate mattress. The eyes were tapped shut after ointment was applied by the anesthesiologist to prevent corneal abrasion. A Shannon hugger was placed over the exposed lower body to maintain control of the core body temperature. The head was held in rigid fixation using the Bravo headmaster/mistress. Intraoperative registration The rigid body was attached to the Bravo headholder. Intraoperative registration was then performed with the [facility]. The lesion was located in the three planes, sagittal, axial and coronal. An entry point was selected in the scalp. Surgical Approach and stereotactic biopsy The skin was prepped and draped in the usual sterile fashion. A linear incision in the left frontal region selected by the planning was outlined. The area was infiltrated with 1% lidocaine with epinephrine 1:100,000 dilution. A skin incision was made with a #10 blade. Small subgaleal bleeders were controlled with a bipolar a small self-retaining retractor was placed in the incision. The fascia and muscle were incised with a Bovie and retracted at each side. The Midas Freddy was brought into the field and a bur hole was made with an AM-8 drill bit. The duramatter was coagulated with a bipolar and opening increased for pressure and a very small corticotomy performed. At this point of the procedure the stereotactic biopsy arm was brought into the field and secured to the headmaster/mistress. The formulation technician was brought into the field, and the trajectory on the biopsy arm was created following the previously selected trajectory. Then, a stereotactic needle was carefully inserted into the brain at the center of the lesion and by gentle aspiration two initial biopsies were obtained, one of which was sent to the lab for frozen section, while the second kept for permanent histological annalysis. Meanwhile, additional specimens were obtained for permanent histologic analysis. At this point in the procedure , after waiting for awhile, the frozen section was called in and reported as lymphoma. The biopsy needle was carefully removed and the stereotactic device was removed. The incision was irrigated with a large amount of saline. A piece of Gelfoam was placed over the surface of the brain and a bur hole cover was placed. The incision was closed in layers. 3-0 Vicryl with interrupted sutures were used to close the fascial layers and galea. The skin was closed with chip. A sterile dressing was applied. At the end of the procedure the sponge, needle and instrument counts were all correct. Estimated blood loss was minimal. No blood transfusion was given. The patient received preoperative prophylactic antibiotics. No intraoperative complications occurred. The patient was transferred to the recovery room in stable condition. Miguel Sutton MD Jul 17, 2017 17:40 A/P Problem List: (1) Brain mass ICD Code: G93.9 - Disorder of brain, unspecified (2) Dementia without behavioral disturbance ICD Code: F03.90 - Unspecified dementia without behavioral disturbance (3) Hypertension ICD Code: I10 - Essential (primary) hypertension (4) Hyperlipidemia ICD Code: E78.5 - Hyperlipidemia, unspecified (5) Seizure ICD Code: R56.9 - Unspecified convulsions Assessment and Plan 08/12: Continue current care, follow with oncology, Repeat CBC BMP in a.m., monitor temperature, blood pressure 08/13: Continue monitoring CBC, nephrology following, continue PT OT, monitor blood pressure, discussed with the daughter 08/14:Patient sitting on the chair pleasant awake alert denied complain, daughter at the bedside who is translating Creatinine improved to 2.6 Patient continue on leucovorin for a goal NTX less than 0.05 appreciate oncology follow-up 08/15: Doing well, discussed with the daughter, continue leucovorin, MTX 0.08, continue following with oncology, wean down O2 a/p: 61-year-old female admitted secondary to encephalopathy found to be related to 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 -Plan for chemo hem onc ff/ However patient can be transferred back to [facility] to resume chemo there. Hem/onc will get in touch with oncologist at [facility]. unabvle to do chemo at [place] apparently Continue working with PT. 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 with vasogenic edema and midline shift status post biopsy Continue steroids Continue to follow clinically Neurology following //Hypothyroidism, chronic Continue supplements Follows as outpatient //Hypertension Continue baseline treatment Follow blood pressures Adjust treatments as needed //Asthma No exacerbation Breathing treatments as needed //H/o ischemic CVA with possible seizure activity at the time of the CVA - no seizures since and does not take AEDs Monitor for any seizure activity Continue Keppra PO Cerebyx 100mg Q8 DCd and change to phenytoin PO continue //Hyperlipidemia Continue present treatment Follow as an outpatient //Bipolar disorder No change to baseline treatments //Obstructive sleep apnea CPAP //Generalize physical deficit May be contributory by brain edema Continue physical therapy //DVT prophylaxis //GI prophylaxis. Pepcid as patient is on steroids. Bleed risk is present SCDs Discharge Planning Continues on chemotherapy per heme oncology. DC when cleared by oncology. Discharge Planning Rehab versus home with home health care when cleared by oncology Manuel Aguilar MD August 15, 2017 15:09
[2017-08-15] MEDS: QUEtiapine FUMARATE 25 MG TAB PO SCH (20:09)
[2017-08-15] MEDS: ATORVASTATIN 40 MG TAB PO SCH (20:09)
[2017-08-16] VITALS (12 sets, daily range): BP systolic 99–146; BP diastolic 56–84; PULSE 50–63; RESP 16–20; TEMP 98.1–99; O2SAT 93–97
[2017-08-16] MEDS: PHENYTOIN SODIUM 100 MG CAP PO SCH ×3 (00:04→16:33)
[2017-08-16] MEDS: DEXAMETHASONE 4 MG TAB PO SCH ×4 (00:05→16:33)
[2017-08-16] MEDS: LEUCOVORIN IV SCH ×4 (03:00→21:07)
[2017-08-16] MEDS: SODIUM CHLORIDE 0.9% IV SCH ×4 (03:00→21:07)
[2017-08-16] MEDS: CHLORHEXIDINE GLUCONATE 2 % 1 PACK (2 CLOTHS) TOP SCH (03:12)
[2017-08-16 05:15] LABS: BICARBONATE 35.8 MEQ/L (21.0-32.0); CALCIUM 8.6 MG/DL (8.5-10.1); CREATININE 2.41 MG/DL (0.50-1.00)
[2017-08-16] MEDS: LEVOTHYROXINE SODIUM 150 MCG TAB PO SCH (06:22)
[2017-08-16] MEDS: SODIUM BICARBONATE 8.4% INJ 100 MEQ in DEXTROSE 5% IN WATE 1000ML INJ 1,000 ML IV SCH ×4 (06:22→15:01)
[2017-08-16] MEDS: CHLORHEXIDINE 0.12% (ORAL KIT) 15 ML CUP MT SCH ×2 (08:00→20:00)
[2017-08-16] MEDS: levETIRAcetam 500 MG TAB PO SCH ×2 (08:18→21:05)
[2017-08-16] MEDS: DOCUSATE SODIUM 100 MG CAP PO SCH ×2 (08:18→21:05)
[2017-08-16] MEDS: FERROUS SULFATE 325 MG (65 MG ELEMENTAL IRON) TAB PO SCH (08:18)
[2017-08-16] MEDS: FAMOTIDINE 20 MG TAB PO SCH ×2 (08:18→21:06)
[2017-08-16] MEDS: DOCUSATE SODIUM 50 MG/SENNA 8.6 MG TAB PO SCH ×2 (08:18→21:05)
[2017-08-16] MEDS: CITALOPRAM HYDROBROMIDE 20 MG TAB PO SCH (08:18)
[2017-08-16] MEDS: ALLOPURINOL 100 MG TAB PO SCH ×2 (08:19→21:07)
--- NOTE | 2017-08-16 10:23 | PD.ONC.PN ---
Subjective Subjective Remarks Afebrile Patient's daughter requesting wheelchair once she is ready for discharge Overall doing well Trying to increase p.o. fluids Objective Data Date Time Temp Pulse Resp B/P (MAP) Pulse Ox O2 Delivery O2 Flow Rate FiO2 08/16/17 08:32 97 Room Air 08/16/17 08:21 98.1 57 20 126/75 (92) 96 08/16/17 08:03 54 08/16/17 04:00 53 08/16/17 04:00 98.3 55 20 99/56 (70) 93 08/16/17 00:02 98.7 57 20 104/58 (73) 95 08/16/17 00:00 56 08/15/17 22:20 95 08/15/17 20:00 65 08/15/17 20:00 98.6 64 20 106/57 (73) 93 08/15/17 20:00 93 Room Air 08/15/17 16:00 98.1 57 18 103/60 (74) 92 08/15/17 16:00 56 08/15/17 12:00 65 08/15/17 12:00 98.4 64 18 111/68 (82) 96 08/16/17 08/16/17 08/16/17 07:00 15:00 23:00 Intake Total 480 ml Output Total 1400 ml Balance -920 ml Result Diagram: 08/15/17 0500 08/16/17 0400 Laboratory Results Laboratory Tests Test 08/15/17 11:30 08/16/17 04:00 08/16/17 05:50 Blood Urea Nitrogen 29 MG/DL Creatinine 2.41 MG/DL Random Glucose 110 MG/DL Calcium Level 8.6 MG/DL Sodium Level 142 MEQ/L Potassium Level 3.5 MEQ/L Chloride Level 98 MEQ/L Carbon Dioxide Level 35.8 MEQ/L Anion Gap 8 MEQ/L Estimat Glomerular Filtration Rate 20 ML/MIN Urine pH 8.5 Administered Medications Medications (Trade) Dose Ordered Sig/Thaddeus Route PRN Reason Start Time Stop Time Status Last Admin Dose Admin Senna/Docusate Sodium (Maddy-Colace) 1 tab BID PO 07/15/17 09:00 08/16/17 08:18 Magnesium Hydroxide (Milk Of Magnesia Liq) 30 ml Q12H PRN PO Mild constipation 07/14/17 22:15 08/15/17 11:56 Sennosides (Senokot) 17.2 mg Q12H PRN PO Moderate constipation 07/14/17 22:15 08/15/17 11:57 Bisacodyl (Dulcolax Supp) 10 mg DAILY PRN RECTAL SEVERE CONSITIPATION/ IF NPO 07/14/17 22:15 08/07/17 22:05 Lactulose (Lactulose Liq) 30 ml DAILY PRN PO SEVERE CONSITIPATION/ IF PO 07/14/17 22:15 08/02/17 09:39 Albuterol Sulfate (Albuterol Neb) 2.5 mg Q4HR NEB PRN NEB sob/wheezing 07/14/17 22:30 07/14/17 23:41 Allopurinol (Zyloprim) 100 mg BID PO 07/15/17 09:00 08/16/17 08:19 Atorvastatin Calcium (Lipitor) 40 mg HS PO 07/15/17 21:00 08/15/17 20:09 Citalopram Hydrobromide (CeleXA) 20 mg DAILY PO 07/15/17 09:00 08/16/17 08:18 Levothyroxine Sodium (Synthroid) 150 mcg DAILY@0700 PO 07/15/17 07:00 08/16/17 06:22 Quetiapine Fumarate (SEROquel) 25 mg HS PO 07/15/17 21:00 08/15/17 20:09 Chlorhexidine Gluconate (Peridex 0.12% Liq) 15 ml BID@08,20 MT 07/16/17 20:00 08/01/17 20:00 Chlorhexidine Gluconate (Chlorhexidine 2% Cloth) Taper DAILY@04 TOP 07/17/17 04:00 07/13/18 03:59 07/29/17 04:00 Heparin Sodium (Porcine) (Heparin Central Flush) See Protocol DAILY IV FLUSH 07/17/17 09:00 08/16/17 08:19 Heparin Sodium (Porcine) (Heparin Central Flush) See Protocol UNSCH PRN IV FLUSH SEE PROTOCOL TABLE 07/16/17 19:30 08/09/17 05:52 Sodium Chloride (NS Flush) UNSCH PRN IV FLUSH SEE PROTOCOL TABLE 07/16/17 19:30 08/12/17 11:34 Sodium Chloride (NS Flush) See Protocol UNSCH PRN IV FLUSH FLUSH AFTER USING IV ACCESS 07/16/17 19:30 08/06/17 10:29 Docusate Sodium (Colace) 100 mg BID PO 07/17/17 21:00 08/16/17 08:18 Ondansetron HCl (Zofran Inj) 4 mg Q6H PRN IV PUSH NAUSEA OR VOMITING 07/17/17 10:45 08/09/17 06:03 Acetaminophen/ Hydrocodone Bitart ([place] 10-325 Mg) 1 tab Q4H PRN PO PAIN SCALE 1 TO 5 07/17/17 11:45 07/30/17 04:36 Acetaminophen/ Hydrocodone Bitart ([place] 10-325 Mg) 2 tab Q4H PRN PO PAIN SCALE 6 TO 10 07/17/17 11:45 07/24/17 15:43 Morphine Sulfate (Morphine Inj) 4 mg Q2H PRN IV PUSH PAIN SCALE 7 TO 10 07/17/17 11:45 07/20/17 09:44 Acetaminophen (Tylenol) 650 mg Q4H PRN PO TEMPERATURE > 101.5 F 07/17/17 11:45 08/10/17 15:19 Phenytoin (Dilantin) 100 mg Q8HR PO 07/22/17 14:00 Future Hold 07/25/17 13:35 Ferrous Sulfate (Ferrous Sulfate) 325 mg DAILY PO 07/24/17 09:00 08/16/17 08:18 Dexamethasone (Decadron) 4 mg Q6HR PO 08/01/17 18:00 08/16/17 06:22 Levetriacetam (Keppra) 1,000 mg Q12HR PO 08/02/17 21:00 08/16/17 08:18 Famotidine (Pepcid) 10 mg BID PO 08/11/17 09:00 08/16/17 08:18 Leucovorin Calcium 100 mg/ Sodium Chloride 50 ml @ 400 mls/hr Q6H IV 08/14/17 09:00 08/16/17 08:17 Sodium Bicarbonate 100 meq/Dextrose 1,100 ml @ 125 mls/hr Q8H48M IV 08/14/17 14:00 08/16/17 06:22 Phenytoin (Dilantin) 100 mg Q8H PO 08/15/17 01:00 08/16/17 08:18 Objective Remarks GENERAL: Middle aged female asleep in bed in no obvious distress SKIN: Warm and dry. HEAD: Normocephalic. EYES: No injection or drainage. NECK: Supple, trachea midline. CARDIOVASCULAR: Regular rate and rhythm RESPIRATORY: Clear anteriorly. Breathing unlabored at rest. GASTROINTESTINAL: Abdomen soft, non-tender, nondistended. EXTREMITIES: No cyanosis. No edema NEUROLOGICAL: Awake and alert. Has right-sided weakness but this is improved. 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 received 6 cycles of R-CHOP under the direction of Dr. Alves at [facility] in [place] (was in remission) (2) Bundle branch block ICD Codes: I45.4 - Nonspecific intraventricular block Plan: --appreciate cardiology assistance. --recommend waiting until methotrexate levels are <0.01 before starting ASA therapy as there is a potential for interaction. (3) Renal insufficiency ICD Codes: N28.9 - Disorder of kidney and ureter, unspecified Plan: --improving, appreciate nephrology assistance. 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 Plan 1. Continue leucovorin and IV fluids. 2. Methotrexate level pending 3. Continue IV fluids at 125; will try to keep a positive fluid balance for kidney injury 4. Monitor CMP, urine pH Attending Statement The exam, history, and the medical decision-making described in the above note were completed with the assistance of the mid-level provider. I reviewed and agree with the findings presented. I attest that I had a [id number] encounter with the patient on the same day, and personally performed and documented my assessment and findings in the medical record. Patient denies any headache. She has good urine output. Right arm is getting stronger. Methotrexate level is still pending. She will continue leucovorin. Renal function is improving. Problem Qualifiers (1) B-cell lymphoma: Qualified Codes: C85.10 - Unspecified B-cell lymphoma, unspecified site Sho Reaves August 16, 2017 10:23 Julio C Rawls MD August 16, 2017 11:34
--- NOTE | 2017-08-16 12:24 | HHI.NPPN ---
Subjective Renal Failure: Acute History of Present Illness 62-year-old female with past medical history of hypertension, chronic obstructive pulmonary disease, hypothyroidism, history of non-Hodgkin's lymphoma, hyperlipidemia, cerebrovascular accident, was admitted on 07/14/2017 because of brain mass and possibility of subacute hemorrhage. Additional Remarks No acute complaints Review of Systems General Constitutional: Fatigue Objective Data Data Vital Signs Date Time Temp Pulse Resp B/P (MAP) Pulse Ox O2 Delivery O2 Flow Rate FiO2 08/16/17 11:46 98.2 58 20 128/56 (80) 97 08/16/17 08:32 97 Room Air 08/16/17 08:21 98.1 57 20 126/75 (92) 96 08/16/17 08:03 54 08/16/17 04:00 53 08/16/17 04:00 98.3 55 20 99/56 (70) 93 08/16/17 00:02 98.7 57 20 104/58 (73) 95 08/16/17 00:00 56 08/15/17 22:20 95 08/15/17 20:00 65 08/15/17 20:00 98.6 64 20 106/57 (73) 93 08/15/17 20:00 93 Room Air 08/15/17 16:00 98.1 57 18 103/60 (74) 92 08/15/17 16:00 56 -: 08/15/17 0500 08/16/17 0400 Physical Exam General Appearance: Well Nourished, No Acute Distress, Comfortable Eyes Eye Exam: Pupils Equal Throat Throat Exam: Oral Mucosa [place] Site 1 & Moist Neck Neck Exam: Neck Supple, Trachea Midline Pulmonary Resp Exam: Clear Bilaterally, Breath Sounds Equal, No Distress, Decreased Bases Cardiology CV Exam: Regular, Normal Sinus Rhythm Gastrointestinal/Abdomen GI Exam: Soft, Non-Tender, Bowel Sounds Present Extremeties Extremities Exam: Trace Edema Neurologic Neuro Exam: Alert, Awake, Oriented Psychiatric Psych Exam: Appropriate Responses Assessment/Plan Assessment Summary: JJ/Acute Renal Failure Problem List: (1) Hyperlipidemia ICD Codes: E78.5 - Hyperlipidemia, unspecified (2) Seizure ICD Codes: R56.9 - Unspecified convulsions (3) Hypertension ICD Codes: I10 - Essential (primary) hypertension (4) B-cell lymphoma ICD Codes: C85.10 - Unspecified B-cell lymphoma, unspecified site (5) Brain mass ICD Codes: G93.9 - Disorder of brain, unspecified (6) Renal insufficiency ICD Codes: N28.9 - Disorder of kidney and ureter, unspecified Plan Patient developed JJ, Most likely has ATN due to Chemotherapy. Remains non oliguric with urinary output of 2.3 L/24 hours Renal U/S noted. Urine Sodium is normal, not low. Urine Eosinophils negative. Creatinine improving at 2.62- > 2.59 -> 2.41 On IVFs, continue to encourage PO fluid intake. Renal function stabilizing Follow the urine out put and BMP. Problem Qualifiers (1) B-cell lymphoma: Qualified Codes: C85.10 - Unspecified B-cell lymphoma, unspecified site Kwasi Bullard MD August 16, 2017 12:24
--- NOTE | 2017-08-16 18:15 | HHI.PR ---
Subjective Remarks Doing well, discussed with the daughter who told me patient had a regional sales manager or urologist in [place] that she will follow up with, creatinine dropped to 2.41 she still on leucovorin by oncology, appreciate nephrology follow-up Objective Vitals Vital Signs Date Time Temp Pulse Resp B/P (MAP) Pulse Ox O2 Delivery O2 Flow Rate FiO2 08/16/17 16:30 98.1 53 18 146/81 (102) 95 08/16/17 16:00 52 08/16/17 12:00 50 08/16/17 11:46 98.2 58 20 128/56 (80) 97 08/16/17 08:32 97 Room Air 08/16/17 08:21 98.1 57 20 126/75 (92) 96 08/16/17 08:03 54 08/16/17 04:00 53 08/16/17 04:00 98.3 55 20 99/56 (70) 93 08/16/17 00:02 98.7 57 20 104/58 (73) 95 08/16/17 00:00 56 08/15/17 22:20 95 08/15/17 20:00 65 08/15/17 20:00 98.6 64 20 106/57 (73) 93 08/15/17 20:00 93 Room Air I/O 08/15/17 08/15/17 08/15/17 08/16/17 08/16/17 08/16/17 07:00 15:00 23:00 07:00 15:00 23:00 Intake Total 240 ml 1010 ml 480 ml 1000 ml 800 ml Output Total 700 ml 1000 ml 1400 ml 1100 ml Balance -460 ml 10 ml -920 ml 1000 ml -300 ml Intake Oral 240 ml 960 ml 480 ml 800 ml IV Total 50 ml 1000 ml Output Urine Total 700 ml 1000 ml 1300 ml 1100 ml Stool Total 100 ml # Bowel Movements 1 Result Diagram: 08/15/17 0500 08/16/17 0400 Objective Remarks GENERAL: This is a well-nourished, well-developed patient, in no apparent distress. CARDIOVASCULAR: RRR, no gallops, or rubs. RESPIRATORY: Fair air entry bilaterally. No W, R, or R GASTROINTESTINAL: Abdomen soft, non-tender, nondistended. Positive bowel sounds MUSCULOSKELETAL: Extremities without clubbing, cyanosis, or edema. Pedal pulses appreciated NEUROLOGICAL: Awake and alert. 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 The lesions had abnormal signal intensity and and characteristics consistent with a possible neoplastic, inflammatory, or infectious process. A stereotactic biopsy of the lesions was indicated. The [id number] details of the procedure, its indications, alternatives, risks and potential complications were fully discussed with the patient. The patient fully understood. All questions were answered. No guarantees were given. The patient voiced requesting the procedure and provided informed consents. The patient was offered the alternative of not having aggressive management. DETAILS OF THE SURGICAL PROCEDURE Preoperative planning Prior to the surgery the patient underwent an MRI of the brain according to the stereotactic protocol. The information from the MRI scan was transferred to the operating room via the hospital network and the preoperative planning of the lesion was made. A julia was made at the patients operative site according to the hospital policy. Surgical positioning The patient was then brought to the operating room. After induction of general anesthesia endotracheal intubation was performed. Bkilateral carlos hose and sequential compression devices were placed and kept throughout the procedure. The patient was positioned supine on a 3080 table over a soft mattress. All pressure points were carefully padded with an egg crate mattress. The eyes were tapped shut after ointment was applied by the anesthesiologist to prevent corneal abrasion. A Shannon hugger was placed over the exposed lower body to maintain control of the core body temperature. The head was held in rigid fixation using the Bravo heading maker. Intraoperative registration The rigid body was attached to the Bravo headholder. Intraoperative registration was then performed with the [facility]. The lesion was located in the three planes, sagittal, axial and coronal. An entry point was selected in the scalp. Surgical Approach and stereotactic biopsy The skin was prepped and draped in the usual sterile fashion. A linear incision in the left frontal region selected by the planning was outlined. The area was infiltrated with 1% lidocaine with epinephrine 1:100,000 dilution. A skin incision was made with a #10 blade. Small subgaleal bleeders were controlled with a bipolar a small self-retaining retractor was placed in the incision. The fascia and muscle were incised with a Bovie and retracted at each side. The Midas Freddy was brought into the field and a bur hole was made with an AM-8 drill bit. The duramatter was coagulated with a bipolar and opening increased for pressure and a very small corticotomy performed. At this point of the procedure the stereotactic biopsy arm was brought into the field and secured to the heading maker. The outside sales account executive was brought into the field, and the trajectory on the biopsy arm was created following the previously selected trajectory. Then, a stereotactic needle was carefully inserted into the brain at the center of the lesion and by gentle aspiration two initial biopsies were obtained, one of which was sent to the lab for frozen section, while the second kept for permanent histological annalysis. Meanwhile, additional specimens were obtained for permanent histologic analysis. At this point in the procedure , after waiting for awhile, the frozen section was called in and reported as lymphoma. The biopsy needle was carefully removed and the stereotactic device was removed. The incision was irrigated with a large amount of saline. A piece of Gelfoam was placed over the surface of the brain and a bur hole cover was placed. The incision was closed in layers. 3-0 Vicryl with interrupted sutures were used to close the fascial layers and galea. The skin was closed with chip. A sterile dressing was applied. At the end of the procedure the sponge, needle and instrument counts were all correct. Estimated blood loss was minimal. No blood transfusion was given. The patient received preoperative prophylactic antibiotics. No intraoperative complications occurred. The patient was transferred to the recovery room in stable condition. Miguel Sutton MD Jul 17, 2017 17:40 A/P Problem List: (1) Brain mass ICD Code: G93.9 - Disorder of brain, unspecified (2) Dementia without behavioral disturbance ICD Code: F03.90 - Unspecified dementia without behavioral disturbance (3) Hypertension ICD Code: I10 - Essential (primary) hypertension (4) Hyperlipidemia ICD Code: E78.5 - Hyperlipidemia, unspecified (5) Seizure ICD Code: R56.9 - Unspecified convulsions Assessment and Plan 5/16: Continue current care, follow with oncology, Repeat CBC BMP in a.m., monitor temperature, blood pressure 08/13: Continue monitoring CBC, nephrology following, continue PT OT, monitor blood pressure, discussed with the daughter 08/14:Patient sitting on the chair pleasant awake alert denied complain, daughter at the bedside who is translating Creatinine improved to 2.6 Patient continue on leucovorin for a goal NTX less than 0.05 appreciate oncology follow-up 08/15: Doing well, discussed with the daughter, continue leucovorin, MTX 0.08, continue following with oncology, wean down O2 08/16:Doing well, discussed with the daughter who told me patient had a regional sales manager or urologist in [place] that she will follow up with, creatinine dropped to 2.41 she still on leucovorin by oncology, appreciate nephrology follow-up a/p: 61-year-old female admitted secondary to encephalopathy found to be related to 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 -Plan for chemo hem onc ff/ However patient can be transferred back to [facility] to resume chemo there. Hem/onc will get in touch with oncologist at [facility]. unabvle to do chemo at [facility] apparently Continue working with PT. 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 with vasogenic edema and midline shift status post biopsy Continue steroids Continue to follow clinically Neurology following //Hypothyroidism, chronic Continue supplements Follows as outpatient //Hypertension Continue baseline treatment Follow blood pressures Adjust treatments as needed //Asthma No exacerbation Breathing treatments as needed //H/o ischemic CVA with possible seizure activity at the time of the CVA - no seizures since and does not take AEDs Monitor for any seizure activity Continue Keppra PO Cerebyx 100mg Q8 DCd and change to phenytoin PO continue //Hyperlipidemia Continue present treatment Follow as an outpatient //Bipolar disorder No change to baseline treatments //Obstructive sleep apnea CPAP //Generalize physical deficit May be contributory by brain edema Continue physical therapy //DVT prophylaxis //GI prophylaxis. Pepcid as patient is on steroids. Bleed risk is present SCDs Discharge Planning Continues on chemotherapy per heme oncology. DC when cleared by oncology. Discharge Planning Rehab versus home with home health care when cleared by oncology Manuel Aguilar MD August 16, 2017 18:15
[2017-08-16] MEDS: QUEtiapine FUMARATE 25 MG TAB PO SCH (21:06)
[2017-08-16] MEDS: ATORVASTATIN 40 MG TAB PO SCH (21:06)
[2017-08-16] MEDS: MAGNESIUM HYDROXIDE SUSP 30 ML CUP PO PRN (21:10)
[2017-08-17] VITALS (13 sets, daily range): BP systolic 100–124; BP diastolic 67–76; PULSE 49–77; RESP 16–20; TEMP 98–99; O2SAT 92–100
[2017-08-17] MEDS: SODIUM BICARBONATE 8.4% INJ 100 MEQ in DEXTROSE 5% IN WATE 1000ML INJ 1,000 ML IV SCH ×4 (00:37→10:17)
[2017-08-17] MEDS: DEXAMETHASONE 4 MG TAB PO SCH ×4 (00:39→18:05)
[2017-08-17] MEDS: PHENYTOIN SODIUM 100 MG CAP PO SCH ×3 (00:41→15:23)
[2017-08-17] MEDS: CHLORHEXIDINE GLUCONATE 2 % 1 PACK (2 CLOTHS) TOP SCH (02:27)
[2017-08-17] MEDS: LEUCOVORIN IV SCH ×4 (03:19→21:18)
[2017-08-17] MEDS: SODIUM CHLORIDE 0.9% IV SCH ×4 (03:19→21:18)
[2017-08-17] MEDS: RESP: ALBUTEROL 2.5 MG/3 ML NEB (PRN) NEB (05:13)
[2017-08-17 05:25] LABS: AUTOMATED NEUTROPHIL # 5.2 TH/MM3 (1.8-7.7); BASOPHIL % 0.5 % (0.0-2.0); EOSINOPHIL # 0.4 TH/MM3 (0-0.4); EOSINOPHIL % 5.2 % (0.0-4.0); HEMATOCRIT 25.4 % (35.0-46.0); HEMOGLOBIN 8.8 GM/DL (11.6-15.3); LYMPH % 16.1 % (9.0-44.0); LYMPHOCYTE # 1.3 TH/MM3 (1.0-4.8); MEAN CELL VOLUME 95.8 FL (80.0-100.0); MEAN CORPUSCULAR HEMOGLOBIN 33.1 PG (27.0-34.0); MEAN CORPUSCULAR HGB CONC 34.5 % (32.0-36.0); MEAN PLATELET VOLUME 7.5 FL (7.0-11.0); MONO % 12.8 % (0.0-8.0); NEUT % 65.4 % (16.0-70.0); PLATELET COUNT 273 TH/MM3 (150-450); RED BLOOD COUNT 2.65 MIL/MM3 (4.00-5.30); RED CELL DISTRIBUTION WIDTH 13.5 % (11.6-17.2); WHITE BLOOD COUNT 7.9 TH/MM3 (4.0-11.0)
[2017-08-17 05:50] LABS: BICARBONATE 35.9 MEQ/L (21.0-32.0); CALCIUM 8.7 MG/DL (8.5-10.1); CREATININE 2.24 MG/DL (0.50-1.00)
[2017-08-17] MEDS: LEVOTHYROXINE SODIUM 150 MCG TAB PO SCH (06:22)
[2017-08-17] MEDS: CHLORHEXIDINE 0.12% (ORAL KIT) 15 ML CUP MT SCH ×2 (08:00→19:30)
[2017-08-17] MEDS: ALLOPURINOL 100 MG TAB PO SCH ×2 (08:36→21:17)
[2017-08-17] MEDS: CITALOPRAM HYDROBROMIDE 20 MG TAB PO SCH (08:36)
[2017-08-17] MEDS: FAMOTIDINE 20 MG TAB PO SCH ×2 (08:36→21:17)
[2017-08-17] MEDS: FERROUS SULFATE 325 MG (65 MG ELEMENTAL IRON) TAB PO SCH (08:36)
[2017-08-17] MEDS: levETIRAcetam 500 MG TAB PO SCH ×2 (08:36→21:17)
[2017-08-17] MEDS: DOCUSATE SODIUM 100 MG CAP PO SCH ×2 (08:36→21:17)
[2017-08-17] MEDS: DOCUSATE SODIUM 50 MG/SENNA 8.6 MG TAB PO SCH ×2 (08:36→21:17)
--- NOTE | 2017-08-17 09:26 | HHI.NPPN ---
Subjective Renal Failure: Acute History of Present Illness 62-year-old female with past medical history of hypertension, chronic obstructive pulmonary disease, hypothyroidism, history of non-Hodgkin's lymphoma, hyperlipidemia, cerebrovascular accident, was admitted on 07/14/2017 because of brain mass and possibility of subacute hemorrhage. Additional Remarks Sitting up eating breakfast. Family at bedside. Creatinine continues to improve at 2.24 from 2.41. (Marisel Durham) Review of Systems General Constitutional: Fatigue (Marisel Durham) Respiratory Respiratory Remarks Denies any SOB (Marisel Durham) Cardiovascular Cardiac Remarks Denies CP (Marisel Durham) Gastrointestinal GI Remarks Denies abdominal pain (Marisel Durham) Objective Data Data Vital Signs Date Time Temp Pulse Resp B/P (MAP) Pulse Ox O2 Delivery O2 Flow Rate FiO2 08/17/17 08:58 Room Air 08/17/17 08:32 98.2 77 20 117/75 (89) 96 08/17/17 07:30 50 08/17/17 05:07 49 08/17/17 04:29 98.7 54 16 124/72 (89) 95 08/17/17 00:10 53 08/16/17 23:28 99.0 55 16 123/74 (90) 95 08/16/17 20:49 99.0 55 18 133/84 (100) 97 08/16/17 20:05 63 08/16/17 19:00 97 Room Air 08/16/17 16:30 98.1 53 18 146/81 (102) 95 08/16/17 16:00 52 08/16/17 12:00 50 08/16/17 11:46 98.2 58 20 128/56 (80) 97 (Marisel Durham) -: 08/17/17 0450 08/17/17 0450 Imaging Last Impressions Chest X-Ray 08/13/17 0000 Signed Impressions: Service Date/Time: July 12:03 - CONCLUSION: 1. Improved aeration at the lung bases, presumably improved atelectasis. 2. Otherwise, no acute abnormality or significant interval change. Frankie Dao MD Renal Ultrasound 08/10/17 Signed Impressions: Service Date/Time: Thursday, August 10, 2017 11:22 - CONCLUSION: 1. Hypoechoic lesion just superior to the right kidney likely represents right adrenal lesion. 2. Bilateral renal cysts. Orlando Tavarez MD Thyroid Ultrasound 07/30/17 Signed Impressions: Service Date/Time: July 08:47 - CONCLUSION: 1. Diffusely heterogeneous multinodular thyroid gland. 2. 1.7 cm solid nodule in the inferior right lobe and 2 mixed nodules in the mid and inferior left pole meet criteria for fine needle aspiration. Frankie Dao MD Bone Biopsy CT 07/28/17 Signed Impressions: Service Date/Time: Friday, July 28, 2017 13:46 - CONCLUSION: 1. Uncomplicated CT guided bone marrow aspirate. 2. Uncomplicated CT guided bone marrow biopsy. Israel Garvin MD Lumbar Puncture Fluoroscopy 07/27/17 Signed Impressions: Service Date/Time: Thursday, July 27, 2017 15:37 - CONCLUSION: Uncomplicated fluoroscopically guided lumbar puncture with pressures as above. Kwasi Wilkins MD Chest CT 07/26/17 Signed Impressions: Service Date/Time: Thursday, July 27, 2017 15:56 - CONCLUSION: 1. Atelectasis at the lung bases but no lung mass or adenopathy. No effusions. 2. Numerous bilateral thyroid nodules measuring up to about 1.5 cm in diameter. See abdomen CT for findings below the diaphragm. Job Barrera MD Abdomen/Pelvis CT 07/26/17 0000 Signed Impressions: Service Date/Time: Thursday, July 27, 2017 15:56 - CONCLUSION: 1. No acute findings abdomen pelvic CT. No definite evidence for metastatic disease. 2.5 cm likely right adrenal adenoma. 2. Mild fatty liver. Job Barrera MD Head CT 07/25/17 0000 Signed Impressions: Service Date/Time: Tuesday, July 25, 2017 14:37 - CONCLUSION: Persistent 3.2 cm mass seen in the left basal ganglia/caudate region. This appears more prominent. This demonstrates increased density which could represent some degree of hemorrhage. Some increased density was present on the prior postoperative CT examination. The previously seen air has resolved. There continues to be vasogenic edema and focal left to right midline shift. Israel Davis MD Brain MRI 07/15/17 0000 Signed Impressions: Service Date/Time: Saturday, July 15, 2017 15:42 - CONCLUSION: Left basal ganglia mass with moderate associated vasogenic edema. Mild-moderate hemispheric mass effect. Serpiginous enhancement in the contralateral right mid to high convexity frontal region. Israel Ruelas MD (GellerMarisel lindsey M. REGIONAL SERVICE MANAGER) Physical Exam General Appearance: Well Nourished, No Acute Distress, Comfortable (GellermannJodyMarisel M. REGIONAL SERVICE MANAGER) Eyes Eye Exam: Pupils Equal (GellermannJodyMarisel M. REGIONAL SERVICE MANAGER) Throat Throat Exam: Oral Mucosa Orient & Moist (HedylerJody lindseyne M. REGIONAL SERVICE MANAGER) Neck Neck Exam: Neck Supple, Trachea Midline (GellerJody lindseyne M. REGIONAL SERVICE MANAGER) Pulmonary Resp Exam: Clear Bilaterally, Breath Sounds Equal, No Distress, Decreased Bases (GellerJody lindseyne M. REGIONAL SERVICE MANAGER) Cardiology CV Exam: Regular, Normal Sinus Rhythm (GellerJody lindseyne M. REGIONAL SERVICE MANAGER) Gastrointestinal/Abdomen GI Exam: Soft, Non-Tender, Bowel Sounds Present (GellermannJodyMarisel M. REGIONAL SERVICE MANAGER) Extremeties Extremities Exam: Trace Edema (HedylerJody lindseyne M. REGIONAL SERVICE MANAGER) Neurologic Neuro Exam: Alert, Awake, Oriented (HedylerJody lindseyne M. REGIONAL SERVICE MANAGER) Psychiatric Psych Exam: Appropriate Responses (Jody Durhamne M. REGIONAL SERVICE MANAGER) Assessment/Plan Assessment Summary: JJ/Acute Renal Failure Problem List: (1) Hyperlipidemia ICD Codes: E78.5 - Hyperlipidemia, unspecified (2) Seizure ICD Codes: R56.9 - Unspecified convulsions (3) Hypertension ICD Codes: I10 - Essential (primary) hypertension (4) B-cell lymphoma ICD Codes: C85.10 - Unspecified B-cell lymphoma, unspecified site (5) Brain mass ICD Codes: G93.9 - Disorder of brain, unspecified (6) Renal insufficiency ICD Codes: N28.9 - Disorder of kidney and ureter, unspecified Plan Patient developed JJ, Most likely has ATN due to Chemotherapy. Remains non oliguric with urinary output of 2.6 L/24 hours Renal U/S noted. Urine Sodium is normal, not low. Urine Eosinophils negative. Creatinine improving at 2.62- > 2.59 -> 2.41 ->2.24 today Continue to encourage PO fluid intake. Follow the urine out put and BMP. (Marisel Durham) Plan Patient seen and examined, agree with above. Creatinine continue to improve. (Lisandro Winters MD) Problem Qualifiers (1) B-cell lymphoma: Qualified Codes: C85.10 - Unspecified B-cell lymphoma, unspecified site Marisel Durham August 17, 2017 09:26 Lisandro Winters MD August 17, 2017 19:37
[2017-08-17] MEDS ORDERED: POTASSIUM CHLORIDE 20 MEQ CONTROLLED RELEASE TAB PO ONE (09:30)
--- NOTE | 2017-08-17 09:56 | PD.ONC.PN ---
Subjective Subjective Remarks Afebrile overnight. Patient resting in bed in nad. No complaints. Afebrile overnight. Patient's daughter at bedside notes mother was confused this morning/ disoriented. she also feels her right face is drooping more than usual. Patient without complaints. Objective Data Date Time Temp Pulse Resp B/P (MAP) Pulse Ox O2 Delivery O2 Flow Rate FiO2 08/17/17 08:58 Room Air 08/17/17 08:32 98.2 77 20 117/75 (89) 96 08/17/17 07:30 50 08/17/17 05:07 49 08/17/17 04:29 98.7 54 16 124/72 (89) 95 08/17/17 00:10 53 08/16/17 23:28 99.0 55 16 123/74 (90) 95 08/16/17 20:49 99.0 55 18 133/84 (100) 97 08/16/17 20:05 63 08/16/17 19:00 97 Room Air 08/16/17 16:30 98.1 53 18 146/81 (102) 95 08/16/17 16:00 52 08/16/17 12:00 50 08/16/17 11:46 98.2 58 20 128/56 (80) 97 08/17/17 08/17/17 08/17/17 07:00 15:00 23:00 Intake Total 1890 ml Output Total 1200 ml Balance 690 ml Result Diagram: 08/17/17 0450 08/17/17 0450 Laboratory Results Laboratory Tests Test 08/17/17 04:50 08/17/17 05:00 08/17/17 06:25 White Blood Count 7.9 TH/MM3 Red Blood Count 2.65 MIL/MM3 Hemoglobin 8.8 GM/DL Hematocrit 25.4 % Mean Corpuscular Volume 95.8 FL Mean Corpuscular Hemoglobin 33.1 PG Mean Corpuscular Hemoglobin Concent 34.5 % Red Cell Distribution Width 13.5 % Platelet Count 273 TH/MM3 Mean Platelet Volume 7.5 FL Neutrophils (%) (Auto) 65.4 % Lymphocytes (%) (Auto) 16.1 % Monocytes (%) (Auto) 12.8 % Eosinophils (%) (Auto) 5.2 % Basophils (%) (Auto) 0.5 % Neutrophils # (Auto) 5.2 TH/MM3 Lymphocytes # (Auto) 1.3 TH/MM3 Monocytes # (Auto) 1.0 TH/MM3 Eosinophils # (Auto) 0.4 TH/MM3 Basophils # (Auto) 0.0 TH/MM3 CBC Comment DIFF FINAL Differential Comment Blood Urea Nitrogen 28 MG/DL Creatinine 2.24 MG/DL Random Glucose 99 MG/DL Calcium Level 8.7 MG/DL Sodium Level 142 MEQ/L Potassium Level 3.0 MEQ/L Chloride Level 97 MEQ/L Carbon Dioxide Level 35.9 MEQ/L Anion Gap 9 MEQ/L Estimat Glomerular Filtration Rate 22 ML/MIN Urine pH 8.5 Administered Medications Medications (Trade) Dose Ordered Sig/Thaddeus Route PRN Reason Start Time Stop Time Status Last Admin Dose Admin Senna/Docusate Sodium (Maddy-Colace) 1 tab BID PO 07/15/17 09:00 08/17/17 08:36 Magnesium Hydroxide (Milk Of Magnesia Liq) 30 ml Q12H PRN PO Mild constipation 07/14/17 22:15 08/16/17 21:10 Sennosides (Senokot) 17.2 mg Q12H PRN PO Moderate constipation 07/14/17 22:15 08/15/17 11:57 Bisacodyl (Dulcolax Supp) 10 mg DAILY PRN RECTAL SEVERE CONSITIPATION/ IF NPO 07/14/17 22:15 08/07/17 22:05 Lactulose (Lactulose Liq) 30 ml DAILY PRN PO SEVERE CONSITIPATION/ IF PO 07/14/17 22:15 08/02/17 09:39 Albuterol Sulfate (Albuterol Neb) 2.5 mg Q4HR NEB PRN NEB sob/wheezing 07/14/17 22:30 08/17/17 05:13 Allopurinol (Zyloprim) 100 mg BID PO 07/15/17 09:00 08/17/17 08:36 Atorvastatin Calcium (Lipitor) 40 mg HS PO 07/15/17 21:00 08/16/17 21:06 Citalopram Hydrobromide (CeleXA) 20 mg DAILY PO 07/15/17 09:00 08/17/17 08:36 Levothyroxine Sodium (Synthroid) 150 mcg DAILY@0700 PO 07/15/17 07:00 08/17/17 06:22 Quetiapine Fumarate (SEROquel) 25 mg HS PO 07/15/17 21:00 08/16/17 21:06 Chlorhexidine Gluconate (Peridex 0.12% Liq) 15 ml BID@08,20 MT 07/16/17 20:00 08/01/17 20:00 Chlorhexidine Gluconate (Chlorhexidine 2% Cloth) Taper DAILY@04 TOP 07/17/17 04:00 07/13/18 03:59 07/29/17 04:00 Heparin Sodium (Porcine) (Heparin Central Flush) See Protocol DAILY IV FLUSH 07/17/17 09:00 08/16/17 08:19 Heparin Sodium (Porcine) (Heparin Central Flush) See Protocol UNSCH PRN IV FLUSH SEE PROTOCOL TABLE 07/16/17 19:30 08/09/17 05:52 Sodium Chloride (NS Flush) UNSCH PRN IV FLUSH SEE PROTOCOL TABLE 07/16/17 19:30 08/12/17 11:34 Sodium Chloride (NS Flush) See Protocol UNSCH PRN IV FLUSH FLUSH AFTER USING IV ACCESS 07/16/17 19:30 08/06/17 10:29 Docusate Sodium (Colace) 100 mg BID PO 07/17/17 21:00 08/17/17 08:36 Ondansetron HCl (Zofran Inj) 4 mg Q6H PRN IV PUSH NAUSEA OR VOMITING 07/17/17 10:45 08/09/17 06:03 Acetaminophen/ Hydrocodone Bitart ([place] 10-325 Mg) 1 tab Q4H PRN PO PAIN SCALE 1 TO 5 07/17/17 11:45 07/30/17 04:36 Acetaminophen/ Hydrocodone Bitart ([place] 10-325 Mg) 2 tab Q4H PRN PO PAIN SCALE 6 TO 10 07/17/17 11:45 07/24/17 15:43 Morphine Sulfate (Morphine Inj) 4 mg Q2H PRN IV PUSH PAIN SCALE 7 TO 10 07/17/17 11:45 07/20/17 09:44 Acetaminophen (Tylenol) 650 mg Q4H PRN PO TEMPERATURE > 101.5 F 07/17/17 11:45 08/10/17 15:19 Phenytoin (Dilantin) 100 mg Q8HR PO 07/22/17 14:00 Future Hold 07/25/17 13:35 Ferrous Sulfate (Ferrous Sulfate) 325 mg DAILY PO 07/24/17 09:00 08/17/17 08:36 Dexamethasone (Decadron) 4 mg Q6HR PO 08/01/17 18:00 08/17/17 06:22 Levetriacetam (Keppra) 1,000 mg Q12HR PO 08/02/17 21:00 08/17/17 08:36 Famotidine (Pepcid) 10 mg BID PO 08/11/17 09:00 08/17/17 08:36 Leucovorin Calcium 100 mg/ Sodium Chloride 50 ml @ 400 mls/hr Q6H IV 08/14/17 09:00 08/17/17 08:35 Sodium Bicarbonate 100 meq/Dextrose 1,100 ml @ 125 mls/hr Q8H48M IV 08/14/17 14:00 08/17/17 00:37 Phenytoin (Dilantin) 100 mg Q8H PO 08/15/17 01:00 08/17/17 08:36 Objective Remarks GENERAL: Pleasant middle aged female, sitting up in bed in [facility]. SKIN: Warm and dry. HEAD: Normocephalic. EYES: No injection or drainage. NECK: Supple, trachea midline. CARDIOVASCULAR: Regular rate and rhythm RESPIRATORY: Breath sounds equal bilaterally. No accessory muscle use. GASTROINTESTINAL: Abdomen soft, non-tender, nondistended. EXTREMITIES: No cyanosis, or edema. MUSCULOSKELETAL: Adequate muscle tone. NEUROLOGICAL: awake. oriented to self only. improving weakness in right upper and lower extremity. right sided facial droop. 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 received 6 cycles of R-CHOP under the direction of Dr. Alves at [facility] in [place] (was in remission) (2) Bundle branch block ICD Codes: I45.4 - Nonspecific intraventricular block Plan: --appreciate cardiology assistance. --recommend waiting until methotrexate levels are <0.01 before starting ASA therapy as there is a potential for interaction. (3) Renal insufficiency ICD Codes: N28.9 - Disorder of kidney and ureter, unspecified Plan: --improving, appreciate nephrology assistance. 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 Plan 1. monitor CBC, CMP and urine pH 2. await MTX level today 3. continue Leucovorin. 4. continue IVF Attending Statement The exam, history, and the medical decision-making described in the above note were completed with the assistance of the mid-level provider. I reviewed and agree with the findings presented. I attest that I had a [id number] encounter with the patient on the same day, and personally performed and documented my assessment and findings in the medical record. Decline in mental status after initial improvement after chemotherapy. Brain imaging pending. Problem Qualifiers (1) B-cell lymphoma: Qualified Codes: C85.10 - Unspecified B-cell lymphoma, unspecified site Yin Still August 17, 2017 09:56 Evy Melendez MD August 18, 2017 08:41
[2017-08-17] MEDS: ACETAMINOPHEN/HYDROcodone 325 MG/10 MG TAB PO PRN ×2 (14:20→22:49)
[2017-08-17] MEDS: SODIUM CHLOR 0.9% 1000 ML INJ 1,000 ML IV SCH (14:23)
--- NOTE | 2017-08-17 14:39 | HHI.FF ---
Face to Face Verification Diagnosis: (1) Brain mass (2) Renal insufficiency (3) Confusion (4) Bundle branch block (5) B-cell lymphoma (6) Dementia without behavioral disturbance Physical Therapy Order: Evaluate and Treat Occupational Therapy Order: Evaluate and Treat Home Health Nursing Order: Medical education Nursing assessment with vital signs I have seen patient Armida Sun on 08/17/17. My clinical findings support the need for the requested home health care services because: Ltd mobility - disease progression Patient has SOB Deconditioned w/ increased weakness I certify that my clinical findings support that this patient is homebound because: Unsteady gait/balance Unsafe to leave home unassisted Manuel Aguilar MD August 17, 2017 14:39
--- NOTE | 2017-08-17 16:11 | RADRPT ---
EXAM DATE/TIME: 08/17/2017 15:44 [place] COMPARISON: CT BRAIN W/O CONTRAST, July 25, 2017, 14:37. INDICATIONS : Altered mental status. RADIATION DOSE: 33.80 CTDIvol (mGy) MEDICAL HISTORY : Cardiovascular disease. Hypertension. Lymphoma. Stroke. SURGICAL HISTORY : None. ENCOUNTER: Subsequent ACUITY: 1 day PAIN SCALE: 0/10 LOCATION: cranial TECHNIQUE: Multiple contiguous axial images were obtained of the head. Using automated exposure control and adj ustment of the mA and/or kV according to patient size, radiation dose was kept as low as reasonably a chievable to obtain optimal diagnostic quality images. DICOM format image data is available electro nically for review and comparison. FINDINGS: The large hyperdense mass centered within the left basal ganglia demonstrates slight interval enlarge ment and now measures 3.8 cm in greatest diameter. There is increasing mass effect with additional sh ift of midline structures. There is 7 mm of left to right shift. Compression of the foramen of Servin is noted. The lateral ventricles are more dilated. The degree of surrounding vasogenic edema has not significantly changed. The right cerebral hemisphere, brain stem and cerebellum remain stable. CONCLUSION: 1. Enlarging hyperdense left basal ganglionic mass. 2. Increasing mass effect with further left to right shift and enlarging lateral ventricles character istic of obstructive hydrocephalus. Toño Reese MD on August 17, 2017 at 16:02 Board Certified Radiologist. This report was verified electronically.
--- NOTE | 2017-08-17 16:28 | HHI.PR ---
Subjective Remarks Patient resting in bed today woke up to voice however per her daughter she is more confused with the help of her daughter translating patient was not responding to all commands however she was able to grasp fingers and smile only Patient seems to have right facial swelling and some worsening droop, her right upper extremity is weaker today I will order stat CT of the head to assess for her hemorrhage Objective Vitals Vital Signs Date Time Temp Pulse Resp B/P (MAP) Pulse Ox O2 Delivery O2 Flow Rate FiO2 08/17/17 15:24 98.2 64 18 100/76 (84) 95 08/17/17 12:00 61 08/17/17 11:10 98.0 62 18 113/67 (82) 100 08/17/17 08:58 Room Air 08/17/17 08:32 98.2 77 20 117/75 (89) 96 08/17/17 07:30 50 08/17/17 05:07 49 08/17/17 04:29 98.7 54 16 124/72 (89) 95 08/17/17 00:10 53 08/16/17 23:28 99.0 55 16 123/74 (90) 95 08/16/17 20:49 99.0 55 18 133/84 (100) 97 08/16/17 20:05 63 08/16/17 19:00 97 Room Air 08/16/17 16:30 98.1 53 18 146/81 (102) 95 I/O 08/16/17 08/16/17 08/16/17 08/17/17 08/17/17 08/17/17 07:00 15:00 23:00 07:00 15:00 23:00 Intake Total 480 ml 1050 ml 900 ml 1890 ml 1470 ml 650 ml Output Total 1400 ml 1400 ml 1200 ml 900 ml Balance -920 ml 1050 ml -500 ml 690 ml 1470 ml -250 ml Intake Oral 480 ml 800 ml 840 ml 600 ml IV Total 1050 ml 100 ml 1050 ml 1470 ml 50 ml Output Urine Total 1300 ml 1400 ml 1200 ml 900 ml Stool Total 100 ml # Bowel Movements 1 0 Result Diagram: 08/17/17 0450 08/17/17 0450 Objective Remarks GENERAL: This is a well-nourished, well-developed patient, in no apparent distress. CARDIOVASCULAR: RRR, no gallops, or rubs. RESPIRATORY: Fair air entry bilaterally. No W, R, or R GASTROINTESTINAL: Abdomen soft, non-tender, nondistended. Positive bowel sounds MUSCULOSKELETAL: Extremities without clubbing, cyanosis, or edema. Pedal pulses appreciated NEUROLOGICAL: Awake and alert. 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 The lesions had abnormal signal intensity and and characteristics consistent with a possible neoplastic, inflammatory, or infectious process. A stereotactic biopsy of the lesions was indicated. The [id number] details of the procedure, its indications, alternatives, risks and potential complications were fully discussed with the patient. The patient fully understood. All questions were answered. No guarantees were given. The patient voiced requesting the procedure and provided informed consents. The patient was offered the alternative of not having aggressive management. DETAILS OF THE SURGICAL PROCEDURE Preoperative planning Prior to the surgery the patient underwent an MRI of the brain according to the stereotactic protocol. The information from the MRI scan was transferred to the operating room via the hospital network and the preoperative planning of the lesion was made. A julia was made at the patients operative site according to the hospital policy. Surgical positioning The patient was then brought to the operating room. After induction of general anesthesia endotracheal intubation was performed. Bkilateral carlos hose and sequential compression devices were placed and kept throughout the procedure. The patient was positioned supine on a 3080 table over a soft mattress. All pressure points were carefully padded with an egg crate mattress. The eyes were tapped shut after ointment was applied by the anesthesiologist to prevent corneal abrasion. A Shannon hugger was placed over the exposed lower body to maintain control of the core body temperature. The head was held in rigid fixation using the Bravo laborer heading. Intraoperative registration The rigid body was attached to the [employer] headholder. Intraoperative registration was then performed with the [employer]. The lesion was located in the three planes, sagittal, axial and coronal. An entry point was selected in the scalp. Surgical Approach and stereotactic biopsy The skin was prepped and draped in the usual sterile fashion. A linear incision in the left frontal region selected by the planning was outlined. The area was infiltrated with 1% lidocaine with epinephrine 1:100,000 dilution. A skin incision was made with a #10 blade. Small subgaleal bleeders were controlled with a bipolar a small self-retaining retractor was placed in the incision. The fascia and muscle were incised with a Bovie and retracted at each side. The Midas Freddy was brought into the field and a bur hole was made with an AM-8 drill bit. The duramatter was coagulated with a bipolar and opening increased for pressure and a very small corticotomy performed. At this point of the procedure the stereotactic biopsy arm was brought into the field and secured to the laborer heading. The night club manager was brought into the field, and the trajectory on the biopsy arm was created following the previously selected trajectory. Then, a stereotactic needle was carefully inserted into the brain at the center of the lesion and by gentle aspiration two initial biopsies were obtained, one of which was sent to the lab for frozen section, while the second kept for permanent histological annalysis. Meanwhile, additional specimens were obtained for permanent histologic analysis. At this point in the procedure , after waiting for awhile, the frozen section was called in and reported as lymphoma. The biopsy needle was carefully removed and the stereotactic device was removed. The incision was irrigated with a large amount of saline. A piece of Gelfoam was placed over the surface of the brain and a bur hole cover was placed. The incision was closed in layers. 3-0 Vicryl with interrupted sutures were used to close the fascial layers and galea. The skin was closed with chip. A sterile dressing was applied. At the end of the procedure the sponge, needle and instrument counts were all correct. Estimated blood loss was minimal. No blood transfusion was given. The patient received preoperative prophylactic antibiotics. No intraoperative complications occurred. The patient was transferred to the recovery room in stable condition. Miguel Sutton MD Jul 17, 2017 17:40 A/P Problem List: (1) Brain mass ICD Code: G93.9 - Disorder of brain, unspecified (2) Dementia without behavioral disturbance ICD Code: F03.90 - Unspecified dementia without behavioral disturbance (3) Hypertension ICD Code: I10 - Essential (primary) hypertension (4) Hyperlipidemia ICD Code: E78.5 - Hyperlipidemia, unspecified (5) Seizure ICD Code: R56.9 - Unspecified convulsions Assessment and Plan 08/16:Doing well, discussed with the daughter who told me patient had a database consultant or urologist in [place] that she will follow up with, creatinine dropped to 2.41 she still on leucovorin by oncology, appreciate nephrology follow-up 08/17: Patient resting in bed today woke up to voice however per her daughter she is more confused with the help of her daughter translating patient was not responding to all commands however she was able to grasp fingers and smile only Patient seems to have right facial swelling and some worsening droop, her right upper extremity is weaker today I will order stat CT of the head to assess for her hemorrhage addendum: CT head came back positive for enlarging and increased left basal ganglionic mass-effect, we will reconsult neurosurgery a/p: 61-year-old female admitted secondary to encephalopathy found to be related to 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 -Plan for chemo hem onc ff/ However patient can be transferred back to [facility] to resume chemo there. Hem/onc will get in touch with oncologist at [facility]. unabvle to do chemo at [place] apparently Continue working with PT. 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 with vasogenic edema and midline shift status post biopsy Continue steroids Continue to follow clinically Neurology following //Hypothyroidism, chronic Continue supplements Follows as outpatient //Hypertension Continue baseline treatment Follow blood pressures Adjust treatments as needed //Asthma No exacerbation Breathing treatments as needed //H/o ischemic CVA with possible seizure activity at the time of the CVA - no seizures since and does not take AEDs Monitor for any seizure activity Continue Keppra PO Cerebyx 100mg Q8 DCd and change to phenytoin PO continue //Hyperlipidemia Continue present treatment Follow as an outpatient //Bipolar disorder No change to baseline treatments //Obstructive sleep apnea CPAP //Generalize physical deficit May be contributory by brain edema Continue physical therapy //DVT prophylaxis //GI prophylaxis. Pepcid as patient is on steroids. Bleed risk is present SCDs Discharge Planning Continues on chemotherapy per heme oncology. DC when cleared by oncology. Discharge Planning Rehab versus home with home health care when cleared by oncology Manuel Aguilar MD August 17, 2017 16:28
[2017-08-17] MEDS: DEXAMETHASONE SOD PHOS 4 MG/ML VIAL IV SCH (20:01)
[2017-08-17] MEDS: ATORVASTATIN 40 MG TAB PO SCH (21:17)
[2017-08-17] MEDS: QUEtiapine FUMARATE 25 MG TAB PO SCH (21:17)
[2017-08-18] VITALS (7 sets, daily range): BP systolic 133–167; BP diastolic 67–85; PULSE 56–69; RESP 16–22; TEMP 97.9–98.8; O2SAT 92–99
[2017-08-18] MEDS: RESP: ALBUTEROL 2.5 MG/3 ML NEB (PRN) NEB ×4 (00:14→23:28)
[2017-08-18] MEDS: PHENYTOIN SODIUM 100 MG CAP PO SCH ×3 (01:00→17:00)
[2017-08-18] MEDS: CHLORHEXIDINE GLUCONATE 2 % 1 PACK (2 CLOTHS) TOP SCH (03:09)
[2017-08-18] MEDS: DEXAMETHASONE SOD PHOS 4 MG/ML VIAL IV SCH ×4 (03:09→20:26)
[2017-08-18] MEDS: LEUCOVORIN IV SCH ×4 (03:09→20:34)
[2017-08-18] MEDS: SODIUM CHLORIDE 0.9% IV SCH ×4 (03:09→20:34)
[2017-08-18 05:35] LABS: AUTOMATED NEUTROPHIL # 8.9 TH/MM3 (1.8-7.7); BASOPHIL # 0.1 TH/MM3 (0-0.2); BASOPHIL % 0.5 % (0.0-2.0); EOSINOPHIL # 0.1 TH/MM3 (0-0.4); EOSINOPHIL % 1.1 % (0.0-4.0); HEMATOCRIT 25.5 % (35.0-46.0); HEMOGLOBIN 8.6 GM/DL (11.6-15.3); LYMPH % 6.9 % (9.0-44.0); LYMPHOCYTE # 0.8 TH/MM3 (1.0-4.8); MEAN CELL VOLUME 95.8 FL (80.0-100.0); MEAN CORPUSCULAR HEMOGLOBIN 32.5 PG (27.0-34.0); MEAN CORPUSCULAR HGB CONC 33.9 % (32.0-36.0); MEAN PLATELET VOLUME 7.2 FL (7.0-11.0); MONOCYTE # 1.2 TH/MM3 (0-0.9); NEUT % 80.5 % (16.0-70.0); PLATELET COUNT 307 TH/MM3 (150-450); RED BLOOD COUNT 2.66 MIL/MM3 (4.00-5.30); RED CELL DISTRIBUTION WIDTH 14.2 % (11.6-17.2)
[2017-08-18 05:58] LABS: ALT (GPT) 52 U/L (10-53); AST (GOT) 32 U/L (15-37); BICARBONATE 31.2 MEQ/L (21.0-32.0); BLOOD UREA NITROGEN 25 MG/DL (7-18); CALCIUM 8.8 MG/DL (8.5-10.1); CHLORIDE 103 MEQ/L (98-107); CREATININE 1.91 MG/DL (0.50-1.00); GLOMERULAR FILTRATION RATE 26 ML/MIN (>89); GLUCOSE,RANDOM 98 MG/DL (74-106); SODIUM (NA) 144 MEQ/L (136-145)
[2017-08-18 06:01] LABS: ALKALINE PHOSPHATASE 132 U/L (45-117); TOTAL BILIRUBIN ADULT 0.2 MG/DL (0.2-1.0); TOTAL PROTEIN 6.8 GM/DL (6.4-8.2)
[2017-08-18] MEDS: LEVOTHYROXINE SODIUM 150 MCG TAB PO SCH (07:47)
[2017-08-18] MEDS: CHLORHEXIDINE 0.12% (ORAL KIT) 15 ML CUP MT SCH ×2 (07:47→20:27)
[2017-08-18] MEDS: DOCUSATE SODIUM 50 MG/SENNA 8.6 MG TAB PO SCH ×2 (08:30→20:27)
[2017-08-18] MEDS: levETIRAcetam 500 MG TAB PO SCH ×2 (08:30→20:27)
[2017-08-18] MEDS: ALLOPURINOL 100 MG TAB PO SCH ×2 (08:30→20:27)
[2017-08-18] MEDS: CITALOPRAM HYDROBROMIDE 20 MG TAB PO SCH (08:30)
[2017-08-18] MEDS: FERROUS SULFATE 325 MG (65 MG ELEMENTAL IRON) TAB PO SCH (08:30)
[2017-08-18] MEDS: DOCUSATE SODIUM 100 MG CAP PO SCH ×2 (08:30→20:27)
[2017-08-18] MEDS: FAMOTIDINE 20 MG TAB PO SCH ×2 (08:30→20:28)
[2017-08-18] MEDS: MAGNESIUM HYDROXIDE SUSP 30 ML CUP PO PRN (08:41)
--- NOTE | 2017-08-18 09:38 | HHI.NPPN ---
Subjective Renal Failure: Acute History of Present Illness 62-year-old female with past medical history of hypertension, chronic obstructive pulmonary disease, hypothyroidism, history of non-Hodgkin's lymphoma, hyperlipidemia, cerebrovascular accident, was admitted on 07/14/2017 because of brain mass and possibility of subacute hemorrhage. Additional Remarks Transferred to ICU yesterday with head CT with increasing mass effect. (Marisel Durham) Review of Systems General Constitutional: Fatigue (Marisel Durham) Respiratory Respiratory Remarks Denies any SOB (Marisel Durham) Cardiovascular Cardiac Remarks Denies CP (Marisel Durham) Gastrointestinal GI Remarks Denies abdominal pain (Marisel Durham) Objective Data Data Vital Signs Date Time Temp Pulse Resp B/P (MAP) Pulse Ox O2 Delivery O2 Flow Rate FiO2 08/18/17 04:00 97.9 60 21 133/67 (89) 93 08/18/17 04:00 69 08/18/17 00:00 98.8 65 16 151/75 (100) 92 08/18/17 00:00 65 08/17/17 23:50 95 Nasal Cannula 2.00 08/17/17 21:40 94 21 08/17/17 21:15 76 08/17/17 20:08 99.0 65 18 116/67 (83) 96 08/17/17 16:00 57 08/17/17 15:24 98.2 64 18 100/76 (84) 95 08/17/17 12:00 61 08/17/17 11:10 98.0 62 18 113/67 (82) 100 (Marisel Durham) -: 08/18/17 0520 08/18/17 0520 Imaging Last Impressions Head CT 08/17/17 1415 Signed Impressions: Service Date/Time: Thursday, August 17, 2017 15:44 - CONCLUSION: 1. Enlarging hyperdense left basal ganglionic mass. 2. Increasing mass effect with further left to right shift and enlarging lateral ventricles characteristic of obstructive hydrocephalus. Toño Reese MD Chest X-Ray 08/13/17 0000 Signed Impressions: Service Date/Time: July 12:03 - CONCLUSION: 1. Improved aeration at the lung bases, presumably improved atelectasis. 2. Otherwise, no acute abnormality or significant interval change. Frankie Dao MD Renal Ultrasound 08/10/17 Signed Impressions: Service Date/Time: Thursday, August 10, 2017 11:22 - CONCLUSION: 1. Hypoechoic lesion just superior to the right kidney likely represents right adrenal lesion. 2. Bilateral renal cysts. Orlando Tavarez MD Thyroid Ultrasound 07/30/17 Signed Impressions: Service Date/Time: July 08:47 - CONCLUSION: 1. Diffusely heterogeneous multinodular thyroid gland. 2. 1.7 cm solid nodule in the inferior right lobe and 2 mixed nodules in the mid and inferior left pole meet criteria for fine needle aspiration. Frankie Dao MD Bone Biopsy CT 07/28/17 Signed Impressions: Service Date/Time: Friday, July 28, 2017 13:46 - CONCLUSION: 1. Uncomplicated CT guided bone marrow aspirate. 2. Uncomplicated CT guided bone marrow biopsy. Israel Garvin MD Lumbar Puncture Fluoroscopy 07/27/17 Signed Impressions: Service Date/Time: Thursday, July 27, 2017 15:37 - CONCLUSION: Uncomplicated fluoroscopically guided lumbar puncture with pressures as above. Kwasi Wilkins MD Chest CT 07/26/17 Signed Impressions: Service Date/Time: Thursday, July 27, 2017 15:56 - CONCLUSION: 1. Atelectasis at the lung bases but no lung mass or adenopathy. No effusions. 2. Numerous bilateral thyroid nodules measuring up to about 1.5 cm in diameter. See abdomen CT for findings below the diaphragm. Job Barrera MD Abdomen/Pelvis CT 07/26/17 0000 Signed Impressions: Service Date/Time: Thursday, July 27, 2017 15:56 - CONCLUSION: 1. No acute findings abdomen pelvic CT. No definite evidence for metastatic disease. 2.5 cm likely right adrenal adenoma. 2. Mild fatty liver. Job Barrera MD Brain MRI 07/15/17 Signed Impressions: Service Date/Time: Saturday, July 15, 2017 15:42 - CONCLUSION: Left basal ganglia mass with moderate associated vasogenic edema. Mild-moderate hemispheric mass effect. Serpiginous enhancement in the contralateral right mid to high convexity frontal region. 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) Cardiology CV Exam: Regular, Normal Sinus Rhythm (Marisel Durham) Gastrointestinal/Abdomen GI Exam: Soft, Non-Tender, Bowel Sounds Present (Marisel Durham) Extremeties Extremities Exam: Trace Edema (Marisel Durham) Neurologic Neuro Exam: Alert, Awake, Oriented (Marisel Durham) Psychiatric Psych Exam: Appropriate Responses (Marisel Durham) Assessment/Plan Assessment Summary: JJ/Acute Renal Failure Problem List: (1) Hyperlipidemia ICD Codes: E78.5 - Hyperlipidemia, unspecified (2) Seizure ICD Codes: R56.9 - Unspecified convulsions (3) Hypertension ICD Codes: I10 - Essential (primary) hypertension (4) B-cell lymphoma ICD Codes: C85.10 - Unspecified B-cell lymphoma, unspecified site (5) Brain mass ICD Codes: G93.9 - Disorder of brain, unspecified (6) Renal insufficiency ICD Codes: N28.9 - Disorder of kidney and ureter, unspecified Plan: Patient developed JJ, Most likely has ATN due to Chemotherapy. Remains non oliguric Renal U/S noted. Urine Sodium is normal, not low. Urine Eosinophils negative. Creatinine continues to improve at 2.62- > 2.59 -> 2.41 ->2.24 ->1.91 today IVF continue with gentle hydration Continue to encourage PO fluid intake. Follow the urine out put and BMP. (Marisel DurhamP) Problem List: (1) Hyperlipidemia ICD Codes: E78.5 - Hyperlipidemia, unspecified (2) Seizure ICD Codes: R56.9 - Unspecified convulsions (3) Hypertension ICD Codes: I10 - Essential (primary) hypertension (4) B-cell lymphoma ICD Codes: C85.10 - Unspecified B-cell lymphoma, unspecified site (5) Brain mass ICD Codes: G93.9 - Disorder of brain, unspecified (6) Renal insufficiency ICD Codes: N28.9 - Disorder of kidney and ureter, unspecified Plan: Patient developed JJ, Most likely has ATN due to Chemotherapy. Remains non oliguric Renal U/S noted. Urine Sodium is normal, not low. Urine Eosinophils negative. Creatinine continues to improve at 2.62- > 2.59 -> 2.41 ->2.24 ->1.91 today IVF continue with gentle hydration Continue to encourage PO fluid intake. Follow the urine out put and BMP. Patient seen and examined, agree with above. Creatinine is slightly better. (Lisandro Winters MD) Problem Qualifiers (1) B-cell lymphoma: Qualified Codes: C85.10 - Unspecified B-cell lymphoma, unspecified site Marisel Durham August 18, 2017 09:38 Lisandro Winters MD August 20, 2017 00:00
--- NOTE | 2017-08-18 09:39 | HHI.PR ---
Subjective Remarks Patient's daughter at bedside served as head knitting machine fixer. Still with right sided weakness. Right facial droop. Seen by Neurosurgery and plans for DECK CADET shunt today. Objective Vitals Vital Signs Date Time Temp Pulse Resp B/P (MAP) Pulse Ox O2 Delivery O2 Flow Rate FiO2 08/18/17 04:00 97.9 60 21 133/67 (89) 93 08/18/17 04:00 69 08/18/17 00:00 98.8 65 16 151/75 (100) 92 08/18/17 00:00 65 08/17/17 23:50 95 Nasal Cannula 2.00 08/17/17 21:40 94 21 08/17/17 21:15 76 08/17/17 20:08 99.0 65 18 116/67 (83) 96 08/17/17 16:00 57 08/17/17 15:24 98.2 64 18 100/76 (84) 95 08/17/17 12:00 61 08/17/17 11:10 98.0 62 18 113/67 (82) 100 I/O 08/17/17 08/17/17 08/17/17 08/18/17 08/18/17 08/18/17 07:00 15:00 23:00 07:00 15:00 23:00 Intake Total 1890 ml 1470 ml 890 ml 480 ml Output Total 1200 ml 1850 ml 200 ml Balance 690 ml 1470 ml -960 ml 280 ml Intake Oral 840 ml 840 ml 480 ml IV Total 1050 ml 1470 ml 50 ml Output Urine Total 1200 ml 1850 ml 200 ml # Bowel Movements 0 Result Diagram: 08/18/1751908/18/17 05 Objective Remarks GENERAL: Obese female in no acute distress. CARDIOVASCULAR: Normal rate and regular rhythm without murmurs, gallops, or rubs. RESPIRATORY: Clear to auscultation. Breath sounds equal bilaterally. No wheezes , rales, or rhonchi. GASTROINTESTINAL: Abdomen soft, non-tender, nondistended. Normal active bowel sounds MUSCULOSKELETAL: Extremities without clubbing, cyanosis, or edema. NEURO: Awake and alert. Right LE 4/5, RUE 1/5. Left sided strength is normal. Procedures Procedure: Stereotactic biopsy of Left basal ganglia brain mass A/P Problem List: (1) Brain mass ICD Code: G93.9 - Disorder of brain, unspecified (2) Dementia without behavioral disturbance ICD Code: F03.90 - Unspecified dementia without behavioral disturbance (3) Hypertension ICD Code: I10 - Essential (primary) hypertension (4) Hyperlipidemia ICD Code: E78.5 - Hyperlipidemia, unspecified (5) Seizure ICD Code: R56.9 - Unspecified convulsions Assessment and Plan 61-year-old female with a history of Lymphoma who is brought to the emergency room at [facility] in [place] for increasing confusion, slurred speech, and right-sided weakness. CT of the head was performed and showed a brain mass with midline shift of 6.8 mm with differential including subacute hemorrhage versus neoplastic process. The patient was accepted in transfer by Dr. Barth for neurosurgical evaluation here at [facility] in [place]. Patient underwent biopsy which revealed B cell lymphoma. Oncology following and she was treated with methotrexate. Transferred back to ICU due to worsening clinical status and worsening CT on 08/17. 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 Worsening on 08/17 CT Neurosurgery aware and planning for DECK CADET shunt placement. Radiation Oncology consulted. DW Oncology and Neurosurgery. Continue IV dexamethasone Continue to follow clinically Neurology following May need technology instructor support based on progress and course from neurosurgical procedure today. Cancer related encephalopathy Continue supportive care Hypothyroidism, chronic Continue supplements Follows as outpatient Hypertension Continue baseline treatment Follow blood pressures Adjust treatments as needed Asthma No exacerbation Breathing treatments as needed H/o ischemic CVA with possible seizure activity at the time of the CVA - no seizures since and does not take AEDs Monitor for any seizure activity Continue Keppra PO Cerebyx 100mg Q8 DCd and change to phenytoin PO continue Hyperlipidemia Continue present treatment Follow as an outpatient Bipolar disorder No change to baseline treatments Obstructive sleep apnea CPAP Generalize physical deficit May be contributory by brain edema Continue physical therapy DVT prophylaxis GI prophylaxis. Pepcid as patient is on steroids. Bleed risk is present SCDs Akhil Calderón MD August 18, 2017 09:39
--- NOTE | 2017-08-18 10:44 | PD.ONC.PN ---
Subjective Subjective Remarks Afebrile overnight. Patient resting in bed with daughter at bedside. Transferred to [facility] yesterday after CT revealed hydrocephalus. Neurosurgery planning to place ROPE CLEANER shunt today. Objective Data Date Time Temp Pulse Resp B/P (MAP) Pulse Ox O2 Delivery O2 Flow Rate FiO2 08/18/17 08:00 98.4 56 20 149/85 (106) 98 08/18/17 08:00 56 08/18/17 04:00 97.9 60 21 133/67 (89) 93 08/18/17 04:00 69 08/18/17 00:00 98.8 65 16 151/75 (100) 92 08/18/17 00:00 65 08/17/17 23:50 95 Nasal Cannula 2.00 08/17/17 21:40 94 21 08/17/17 21:15 76 08/17/17 20:08 99.0 65 18 116/67 (83) 96 08/17/17 16:00 57 08/17/17 15:24 98.2 64 18 100/76 (84) 95 08/17/17 12:00 61 08/17/17 11:10 98.0 62 18 113/67 (82) 100 08/18/17 08/18/17 08/18/17 07:00 15:00 23:00 Intake Total 480 ml Output Total 200 ml Balance 280 ml Result Diagram: 08/18/1720 08/18/17 0520 Laboratory Results Laboratory Tests Test 08/17/17 15:10 08/18/17 05:20 Phenytoin (Dilantin) Level 4.6 MCG/ML White Blood Count 11.0 TH/MM3 Red Blood Count 2.66 MIL/MM3 Hemoglobin 8.6 GM/DL Hematocrit 25.5 % Mean Corpuscular Volume 95.8 FL Mean Corpuscular Hemoglobin 32.5 PG Mean Corpuscular Hemoglobin Concent 33.9 % Red Cell Distribution Width 14.2 % Platelet Count 307 TH/MM3 Mean Platelet Volume 7.2 FL Neutrophils (%) (Auto) 80.5 % Lymphocytes (%) (Auto) 6.9 % Monocytes (%) (Auto) 11.0 % Eosinophils (%) (Auto) 1.1 % Basophils (%) (Auto) 0.5 % Neutrophils # (Auto) 8.9 TH/MM3 Lymphocytes # (Auto) 0.8 TH/MM3 Monocytes # (Auto) 1.2 TH/MM3 Eosinophils # (Auto) 0.1 TH/MM3 Basophils # (Auto) 0.1 TH/MM3 CBC Comment DIFF FINAL Differential Comment Blood Urea Nitrogen 25 MG/DL Creatinine 1.91 MG/DL Random Glucose 98 MG/DL Total Protein 6.8 GM/DL Albumin 3.0 GM/DL Calcium Level 8.8 MG/DL Alkaline Phosphatase 132 U/L Aspartate Amino Transf (AST/SGOT) 32 U/L Alanine Aminotransferase (ALT/SGPT) 52 U/L Total Bilirubin 0.2 MG/DL Sodium Level 144 MEQ/L Potassium Level 3.6 MEQ/L Chloride Level 103 MEQ/L Carbon Dioxide Level 31.2 MEQ/L Anion Gap 10 MEQ/L Estimat Glomerular Filtration Rate 26 ML/MIN Imaging Studies Last [address] 08/17/17 1415 Signed Impressions: Service Date/Time: Thursday, August 17, 2017 15:44 - CONCLUSION: 1. Enlarging hyperdense left basal ganglionic mass. 2. Increasing mass effect with further left to right shift and enlarging lateral ventricles characteristic of obstructive hydrocephalus. Toño Reese MD Administered Medications Medications (Trade) Dose Ordered Sig/Thaddeus Route PRN Reason Start Time Stop Time Status Last Admin Dose Admin Senna/Docusate Sodium (Maddy-Colace) 1 tab BID PO 07/15/17 09:00 08/18/17 08:30 Magnesium Hydroxide (Milk Of Magnesia Liq) 30 ml Q12H PRN PO Mild constipation 07/14/17 22:15 08/18/17 08:41 Sennosides (Senokot) 17.2 mg Q12H PRN PO Moderate constipation 07/14/17 22:15 08/15/17 11:57 Bisacodyl (Dulcolax Supp) 10 mg DAILY PRN RECTAL SEVERE CONSITIPATION/ IF NPO 07/14/17 22:15 08/07/17 22:05 Lactulose (Lactulose Liq) 30 ml DAILY PRN PO SEVERE CONSITIPATION/ IF PO 07/14/17 22:15 08/02/17 09:39 Albuterol Sulfate (Albuterol Neb) 2.5 mg Q4HR NEB PRN NEB sob/wheezing 07/14/17 22:30 08/18/17 00:14 Allopurinol (Zyloprim) 100 mg BID PO 07/15/17 09:00 08/18/17 08:30 Atorvastatin Calcium (Lipitor) 40 mg HS PO 07/15/17 21:00 08/17/17 21:17 Citalopram Hydrobromide (CeleXA) 20 mg DAILY PO 07/15/17 09:00 08/18/17 08:30 Levothyroxine Sodium (Synthroid) 150 mcg DAILY@0700 PO 07/15/17 07:00 08/18/17 07:47 Quetiapine Fumarate (SEROquel) 25 mg HS PO 07/15/17 21:00 08/17/17 21:17 Chlorhexidine Gluconate (Peridex 0.12% Liq) 15 ml BID@08,20 MT 07/16/17 20:00 08/01/17 20:00 Chlorhexidine Gluconate (Chlorhexidine 2% Cloth) Taper DAILY@04 TOP 07/17/17 04:00 07/13/18 03:59 07/29/17 04:00 Heparin Sodium (Porcine) (Heparin Central Flush) See Protocol DAILY IV FLUSH 07/17/17 09:00 08/16/17 08:19 Heparin Sodium (Porcine) (Heparin Central Flush) See Protocol UNSCH PRN IV FLUSH SEE PROTOCOL TABLE 07/16/17 19:30 08/09/17 05:52 Sodium Chloride (NS Flush) UNSCH PRN IV FLUSH SEE PROTOCOL TABLE 07/16/17 19:30 08/12/17 11:34 Sodium Chloride (NS Flush) See Protocol UNSCH PRN IV FLUSH FLUSH AFTER USING IV ACCESS 07/16/17 19:30 08/06/17 10:29 Docusate Sodium (Colace) 100 mg BID PO 07/17/17 21:00 08/18/17 08:30 Ondansetron HCl (Zofran Inj) 4 mg Q6H PRN IV PUSH NAUSEA OR VOMITING 07/17/17 10:45 08/09/17 06:03 Acetaminophen/ Hydrocodone Bitart ([place] 10-325 Mg) 1 tab Q4H PRN PO PAIN SCALE 1 TO 5 07/17/17 11:45 08/17/17 22:49 Acetaminophen/ Hydrocodone Bitart ([place] 10-325 Mg) 2 tab Q4H PRN PO PAIN SCALE 6 TO 10 07/17/17 11:45 07/24/17 15:43 Morphine Sulfate (Morphine Inj) 4 mg Q2H PRN IV PUSH PAIN SCALE 7 TO 10 07/17/17 11:45 07/20/17 09:44 Acetaminophen (Tylenol) 650 mg Q4H PRN PO TEMPERATURE > 101.5 F 07/17/17 11:45 08/10/17 15:19 Phenytoin (Dilantin) 100 mg Q8HR PO 07/22/17 14:00 Future Hold 07/25/17 13:35 Ferrous Sulfate (Ferrous Sulfate) 325 mg DAILY PO 07/24/17 09:00 08/18/17 08:30 Levetriacetam (Keppra) 1,000 mg Q12HR PO 08/02/17 21:00 08/18/17 08:30 Famotidine (Pepcid) 10 mg BID PO 08/11/17 09:00 08/18/17 08:30 Leucovorin Calcium 100 mg/ Sodium Chloride 50 ml @ 400 mls/hr Q6H IV 08/14/17 09:00 08/18/17 08:33 Phenytoin (Dilantin) 100 mg Q8H PO 08/15/17 01:00 08/18/17 08:30 Sodium Chloride 1,000 ml @ 42 mls/hr [id number] IV 08/17/17 15:00 08/17/17 14:23 Dexamethasone Sodium Phosphate (Decadron Inj) 4 mg Q6H IV 08/17/17 20:00 08/18/17 07:47 Objective Remarks GENERAL: Pleasant female, lying in bed, daughter at bedside. SKIN: Warm and dry. HEAD: Normocephalic. EYES: No injection or drainage. NECK: Supple, trachea midline. CARDIOVASCULAR: Regular rate and rhythm RESPIRATORY: Breath sounds equal bilaterally. No accessory muscle use. GASTROINTESTINAL: Abdomen soft, non-tender, nondistended. EXTREMITIES: No cyanosis NEUROLOGICAL: awake. right upper and lower extremity weakness. right sided facial droop. Assessment/Plan Problem List: (1) B-cell lymphoma ICD Codes: C85.10 - Unspecified B-cell lymphoma, unspecified site Plan: --received high dose methotrexate + Rituxan 08/06/-08/07 for relapsed DLBCL after biopsy of left basal ganglia brain mass returned showing the same. 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 received 6 cycles of R-CHOP under the direction of Dr. Alves at [facility] in [place] (was in remission) (2) Bundle branch block ICD Codes: I45.4 - Nonspecific intraventricular block Plan: --appreciate cardiology assistance. --recommend waiting until methotrexate levels are <0.01 before starting ASA therapy as there is a potential for interaction. (3) Renal insufficiency ICD Codes: N28.9 - Disorder of kidney and ureter, unspecified Plan: --improving, appreciate nephrology assistance. (4) Confusion ICD Codes: R41.0 - Disorientation, unspecified Assessment 61y/o female with TRIAGE REGISTER NURSE lymphoma. Plan 1. ROPE CLEANER shunt placement today by neurosurgery 2. consult Radiation Oncology, (Dr. Blank) for whole brain radiation 3. continue monitoring MTX levels, continue leucovorin 4. patient's daughter has requested [place] pathology take a second look at the biopsy for a second opinion. pathology has been informed and will start working on that today. Daughter is considering transferring patient to another facility when she stabilizes, but states she has not yet made a decision and wants her mother to stabilize first. Attending Statement The exam, history, and the medical decision-making described in the above note were completed with the assistance of the mid-level provider. I reviewed and agree with the findings presented. I attest that I had a [id number] encounter with the patient on the same day, and personally performed and documented my assessment and findings in the medical record. After initial improvement in mental status after chemotherapy mental status worsening on Thursday. Images showed enlargement of mass with obstructive hydrocephalus. She is s/p placement of shunt. Long discussion with family at bedside. Discussed that chemotherapy is not working to control disease. Discussed that she will need WBRT. Have discussed case with radiation oncologist Dr. Blank. He will see patient and plan to initiate XRT. Problem Qualifiers (1) B-cell lymphoma: Qualified Codes: C85.10 - Unspecified B-cell lymphoma, unspecified site Yin Still August 18, 2017 10:44 Evy Melendez MD August 19, 2017 07:50
--- NOTE | 2017-08-18 10:52 | HHI.NSPN ---
Note Status Status: Progress Note Interval History Interval History 07/15: Ms. Sun is a 61-year-old female who is brought to the emergency room at [facility] for increasing confusion, slurred speech, and right-sided weakness for four days. CT of the head showed a brain mass with midline shift of 6.8 mm with differential including subacute hemorrhage versus neoplastic process. The patient was accepted in transfer by Dr. Todd for neurosurgical evaluation. No seizure activity reported. No tonic-clonic movements. No tongue biting. No incontinence of stool or urine. She remains slightly confused and does not know why she is here at the hospital. She indicates that she's been feeling fine. She denies any fever, chills, nausea, vomiting, or cough. She moves both upper and lower extremities without any focal weakness. She denies any sensory loss. She denies any headaches nausea vomiting. Denies any incontinence or stool or urine. Neurosurgical consultation was requested 07/17: The patient went to the operating room for a stereotactic biopsy of a left basal ganglia mass. Post-operatively she was admitted to the ISC unit for further care and monitoring. 07/18: This morning the patient is awake and alert in bed. She does have a headache when she is laid flat, otherwise she does not. She is having some abdominal pain. She does have some confusion still. She does have some weakness to the right side extremities. 07/19: When seen the patient is awake and alert visiting with family and watching TV. She denies any headache, dizziness or visual difficulty. She also has no pain, numbness or tingling to the extremities. She is spontaneously and purposefully moving her extremities and following commands. She is weak to the right side extremities but her muscle strength appears normal on the left. Sensation is intact to light touch. The daughter reports that earlier this morning the patient stated she was in [place] which is where she lives. Previously she has not been able to answer that question. 07/20: Doing well, weight, conversing in Taiwanese. Stable right hemiparesis. 07/29: Doing well, neurologically stable overnight, no reports of seizure activities. Final brain biopsy reports B cell lymphoma. Labs, Micro, & Vital Signs Results Date Time Temp Pulse Resp B/P (MAP) Pulse Ox O2 Delivery O2 Flow Rate FiO2 08/18/17 08:00 98.4 56 20 149/85 (106) 98 08/18/17 08:00 56 08/18/17 04:00 97.9 60 21 133/67 (89) 93 08/18/17 04:00 69 08/18/17 00:00 98.8 65 16 151/75 (100) 92 08/18/17 00:00 65 08/17/17 23:50 95 Nasal Cannula 2.00 08/17/17 21:40 94 21 08/17/17 21:15 76 08/17/17 20:08 99.0 65 18 116/67 (83) 96 08/17/17 16:00 57 08/17/17 15:24 98.2 64 18 100/76 (84) 95 08/17/17 12:00 61 08/17/17 11:10 98.0 62 18 113/67 (82) 100 Constitutional Vital Signs Date Time Temp Pulse Resp B/P (MAP) Pulse Ox O2 Delivery O2 Flow Rate FiO2 08/18/17 08:00 98.4 56 20 149/85 (106) 98 08/18/17 08:00 56 08/18/17 04:00 97.9 60 21 133/67 (89) 93 08/18/17 04:00 69 08/18/17 00:00 98.8 65 16 151/75 (100) 92 08/18/17 00:00 65 08/17/17 23:50 95 Nasal Cannula 2.00 08/17/17 21:40 94 21 08/17/17 21:15 76 08/17/17 20:08 99.0 65 18 116/67 (83) 96 08/17/17 16:00 57 08/17/17 15:24 98.2 64 18 100/76 (84) 95 08/17/17 12:00 61 08/17/17 11:10 98.0 62 18 113/67 (82) 100 Physical Exam CONSTITUTIONAL: Awake & alert in bed. no apparent distress. HEENT: Normocephalic, Left frontal surgical site healing well without evidence of infection. Nonicteric sclera. MUSCULOSKELETAL: moves all extremities spontaneously & purposefully. NEUROLOGICAL: Awake & alert. Speech clear, answers simple questions in Taiwanese. Follows some simple commands. CN: pupils equal Medications Current Medications Current Medications Medications (Trade) Dose Ordered Sig/Thaddeus Route PRN Reason Start Time Stop Time Status Last Admin Dose Admin Naloxone HCl (Narcan Inj) 0.4 mg UNSCH PRN IV PUSH SEE LABEL COMMENTS 07/14/17 22:15 Senna/Docusate Sodium (Maddy-Colace) 1 tab BID PO 07/15/17 09:00 08/18/17 08:30 Magnesium Hydroxide (Milk Of Magnesia Liq) 30 ml Q12H PRN PO Mild constipation 07/14/17 22:15 08/18/17 08:41 Sennosides (Senokot) 17.2 mg Q12H PRN PO Moderate constipation 07/14/17 22:15 08/15/17 11:57 Bisacodyl (Dulcolax Supp) 10 mg DAILY PRN RECTAL SEVERE CONSITIPATION/ IF NPO 07/14/17 22:15 08/07/17 22:05 Lactulose (Lactulose Liq) 30 ml DAILY PRN PO SEVERE CONSITIPATION/ IF PO 07/14/17 22:15 08/02/17 09:39 Albuterol Sulfate (Albuterol Neb) 2.5 mg Q4HR NEB PRN NEB sob/wheezing 07/14/17 22:30 08/18/17 00:14 Allopurinol (Zyloprim) 100 mg BID PO 07/15/17 09:00 08/18/17 08:30 Atorvastatin Calcium (Lipitor) 40 mg HS PO 07/15/17 21:00 08/17/17 21:17 Citalopram Hydrobromide (CeleXA) 20 mg DAILY PO 07/15/17 09:00 08/18/17 08:30 Levothyroxine Sodium (Synthroid) 150 mcg DAILY@0700 PO 07/15/17 07:00 08/18/17 07:47 Quetiapine Fumarate (SEROquel) 25 mg HS PO 07/15/17 21:00 08/17/17 21:17 Lorazepam (Ativan Inj) 2 mg Q10M PRN IV PUSH SEE LABEL COMMENTS 07/15/17 01:45 Chlorhexidine Gluconate (Peridex 0.12% Liq) 15 ml BID@08,20 MT 07/16/17 20:00 08/01/17 20:00 Miscellaneous Information 1 [id number] XX 07/16/17 13:30 Chlorhexidine Gluconate (Chlorhexidine 2% Cloth) Taper DAILY@04 TOP 07/17/17 04:00 07/13/18 03:59 07/29/17 04:00 Chlorhexidine Gluconate (Chlorhexidine 2% Cloth) 3 pack UNSCH PRN TOP HYGIENIC CARE 07/16/17 13:30 Heparin Sodium (Porcine) (Heparin Central Flush) See Protocol DAILY IV FLUSH 07/17/17 09:00 08/16/17 08:19 Heparin Sodium (Porcine) (Heparin Central Flush) See Protocol UNSCH PRN IV FLUSH SEE PROTOCOL TABLE 07/16/17 19:30 08/09/17 05:52 Sodium Chloride (NS Flush) UNSCH PRN IV FLUSH SEE PROTOCOL TABLE 07/16/17 19:30 08/12/17 11:34 Sodium Chloride (NS Flush) See Protocol UNSCH PRN IV FLUSH FLUSH AFTER USING IV ACCESS 07/16/17 19:30 08/06/17 10:29 Sodium Chloride (NS Flush) SEE PROTOCOL UNSCH PRN IV FLUSH SEE PROTOCOL TABLE 07/16/17 19:30 Docusate Sodium (Colace) 100 mg BID PO 07/17/17 21:00 08/18/17 08:30 Ondansetron HCl (Zofran Inj) 4 mg Q6H PRN IV PUSH NAUSEA OR VOMITING 07/17/17 10:45 08/09/17 06:03 Calcium Gluconate (Calcium Gluconate Inj) 1 gm UNSCH PRN IV SEE LABEL COMMENTS 07/17/17 10:45 Acetaminophen/ Hydrocodone Bitart ([place] 10-325 Mg) 1 tab Q4H PRN PO PAIN SCALE 1 TO 5 07/17/17 11:45 08/17/17 22:49 Acetaminophen/ Hydrocodone Bitart ([place] 10-325 Mg) 2 tab Q4H PRN PO PAIN SCALE 6 TO 10 07/17/17 11:45 07/24/17 15:43 Morphine Sulfate (Morphine Inj) 2 mg Q2H PRN IV PUSH PAIN SCALE 1 TO 6 07/17/17 11:45 Morphine Sulfate (Morphine Inj) 4 mg Q2H PRN IV PUSH PAIN SCALE 7 TO 10 07/17/17 11:45 07/20/17 09:44 Acetaminophen (Tylenol) 650 mg Q4H PRN PO TEMPERATURE > 101.5 F 07/17/17 11:45 08/10/17 15:19 Phenytoin (Dilantin) 100 mg Q8HR PO 07/22/17 14:00 Future Hold 07/25/17 13:35 Ferrous Sulfate (Ferrous Sulfate) 325 mg DAILY PO 07/24/17 09:00 08/18/17 08:30 Terbutaline Sulfate (Brethine Inj) 1 mg UNSCH PRN SQ For Extravasation 07/25/17 16:30 Levetriacetam (Keppra) 1,000 mg Q12HR PO 08/02/17 21:00 08/18/17 08:30 Famotidine (Pepcid) 10 mg BID PO 08/11/17 09:00 08/18/17 08:30 Miscellaneous (Pill Splitter) 1 ea UNSCH PRN OTHER SEE LABEL COMMENTS 08/10/17 15:15 Leucovorin Calcium 100 mg/ Sodium Chloride 50 ml @ 400 mls/hr Q6H IV 08/14/17 09:00 08/18/17 08:33 Phenytoin (Dilantin) 100 mg Q8H PO 08/15/17 01:00 08/18/17 08:30 Sodium Chloride 1,000 ml @ 42 mls/hr [id number] IV 08/17/17 15:00 08/17/17 14:23 Dexamethasone Sodium Phosphate (Decadron Inj) 4 mg Q6H IV 08/17/17 20:00 08/18/17 07:47 Medical Decision Making MDM Remarks 61-year-old female Left basal ganglia WILDLIFE ENFORCEMENT MAJOR lymphoma, status post stereotactic image guided biopsy, final pathology reports B-cell lymphoma Stable postoperative CT brain Plan Plan Remarks neurologically stable, and okay to transfer to floor from neurosurgical standpoint Follow-up with oncology DC Ruby Mendez August 18, 2017 10:52
[2017-08-18] MEDS ORDERED: PROPOFOL 200 MG/20 ML AMP IV ONE (12:00)
[2017-08-18] MEDS ORDERED: NEOSTIGMINE 5 MG/5 ML SYRINGE IV PUSH ONE (12:00)
[2017-08-18] MEDS ORDERED: ROCURONIUM INJ 50 MG/5 ML SYRINGE IV PUSH ONE (12:00)
[2017-08-18] MEDS ORDERED: DEXAMETHASONE SOD PHOS 4 MG/ML VIAL IV ONE (12:00)
[2017-08-18] MEDS ORDERED: PHENYLEPH/NS 1000 MCG/10 ML SYR IV ONE (12:00)
[2017-08-18] MEDS ORDERED: ePHEDrine/NS 25 MG/5 ML SYRINGE IV ONE (12:00)
[2017-08-18] MEDS ORDERED: LACTATED RINGER'S 1000 ML INJ 1,000 ML IV ONE (12:00)
[2017-08-18] MEDS ORDERED: GLYCOPYRROLATE 1 MG/5 ML SYRINGE IV PUSH ONE (12:00)
[2017-08-18] MEDS ORDERED: ONDANSETRON HCL 4 MG/2 ML VIAL IV ONE (12:00)
[2017-08-18] MEDS ORDERED: LIDOCAINE HCL 1% PF 5 ML SYRINGE OTHER ONE (12:00)
[2017-08-18] MEDS ORDERED: ARTIFICIAL TEARS OPTH OINT 3.5 APPLIC/3.5 GM TUBO ONE (12:47)
[2017-08-18] MEDS ORDERED: ACETAMINOPHEN 1000 MG/100 ML 100 ML IV ONE (12:47)
[2017-08-18] MEDS: SODIUM CHLOR 0.9% 1000 ML INJ 1,000 ML IV SCH (14:49)
[2017-08-18] MEDS ORDERED: LIDOCAINE 1%/EPINEPHrine 1:100,000 SOLN 30 ML VIAL ONE (15:25)
[2017-08-18] MEDS ORDERED: BACITRACIN TOP OINT 15 GM TUBE ONE (15:25)
[2017-08-18] MEDS ORDERED: THROMBIN (TOPICAL) 5,000 UNIT VIAL ONE (15:25)
[2017-08-18] MEDS ORDERED: GELATIN 12 MM/7 MM FOAM ONE (15:25)
[2017-08-18] MEDS ORDERED: GENTAMICIN SULFATE 80 MG/2 ML VIAL ONE (15:26)
[2017-08-18] MEDS ORDERED: ACETAMINOPHEN 325 MG TAB PO PRN (16:45)
[2017-08-18] MEDS ORDERED: MORPHINE SULFATE 2 MG/ML SYRINGE IV PUSH PRN (16:45)
[2017-08-18] MEDS ORDERED: ACETAMINOPHEN/HYDROcodone 325 MG/10 MG TAB PO PRN ×2 (16:45)
[2017-08-18] MEDS ORDERED: ceFAZolin 2 GM PREMIX 50 ML IV ONE (17:04)
[2017-08-18] MEDS ORDERED: DO NOT ADM ANY ANTICOAGULANT DRUGS PRN (18:05)
[2017-08-18] MEDS: NS + KCL 20 MEQ INJ 1,000 ML IV SCH (18:25)
[2017-08-18] MEDS ORDERED: *morphine SULFATE 4 MG/ML PERIprocedure ONLY ONE (18:40)
[2017-08-18] MEDS: MORPHINE SULFATE 4 MG/ML INJ IV PUSH PRN (18:41)
[2017-08-18] MEDS: RESP: ALBUTEROL CONC 2.5 MG/0.5 ML NEB NEB SCH ×2 (20:00→23:27)
[2017-08-18] MEDS: ATORVASTATIN 40 MG TAB PO SCH (20:27)
[2017-08-18] MEDS: QUEtiapine FUMARATE 25 MG TAB PO SCH (20:27)
[2017-08-18 21:55] LABS: HEMATOCRIT 26.8 % (35.0-46.0); HEMOGLOBIN 8.8 GM/DL (11.6-15.3); MEAN CELL VOLUME 97.2 FL (80.0-100.0); MEAN CORPUSCULAR HEMOGLOBIN 32.1 PG (27.0-34.0); MEAN PLATELET VOLUME 7.4 FL (7.0-11.0); PLATELET COUNT 297 TH/MM3 (150-450); RED BLOOD COUNT 2.76 MIL/MM3 (4.00-5.30); RED CELL DISTRIBUTION WIDTH 14.3 % (11.6-17.2); WHITE BLOOD COUNT 12.3 TH/MM3 (4.0-11.0)
[2017-08-18 22:20] LABS: BICARBONATE 27.6 MEQ/L (21.0-32.0); CREATININE 1.85 MG/DL (0.50-1.00)
[2017-08-18 22:48] LABS: TOTAL PROTEIN,CSF 13.2 MG/DL (15.0-45.0)
[2017-08-18 23:57] LABS: RBC TUBE #1 43 /MM3; SUPERNATE COLOR TUBE #1 CLEAR (CLEAR); WBC TUBE #1 11 /MM3 (0-10)
[2017-08-19] VITALS (14 sets, daily range): BP systolic 127–154; BP diastolic 60–71; PULSE 58–72; RESP 14–20; TEMP 98.4–99.4; O2SAT 94–100
[2017-08-19] MEDS: PHENYTOIN SODIUM 100 MG CAP PO SCH ×3 (00:43→19:06)
[2017-08-19] MEDS: ceFAZolin 2 GM PREMIX 50 ML IV SCH ×3 (00:43→16:00)
[2017-08-19] MEDS: DEXAMETHASONE SOD PHOS 4 MG/ML VIAL IV SCH ×4 (00:46→20:44)
[2017-08-19 01:31] LABS: CSF LYMPHOCYTES 25 %; CSF MONOCYTES 25 %; CSF NEUTROPHILS 50 %
[2017-08-19] MEDS: SODIUM CHLORIDE 0.9% IV SCH ×4 (03:15→20:46)
[2017-08-19] MEDS: CHLORHEXIDINE GLUCONATE 2 % 1 PACK (2 CLOTHS) TOP SCH (03:15)
[2017-08-19] MEDS: LEUCOVORIN IV SCH ×4 (03:15→20:46)
[2017-08-19] MEDS: RESP: ALBUTEROL 2.5 MG/3 ML NEB (PRN) NEB (03:46)
[2017-08-19] MEDS: RESP: ALBUTEROL CONC 2.5 MG/0.5 ML NEB NEB SCH ×5 (03:50→21:14)
[2017-08-19 04:12] LABS: AUTOMATED NEUTROPHIL # 9.5 TH/MM3 (1.8-7.7); BASOPHIL % 0.3 % (0.0-2.0); EOSINOPHIL % 0.1 % (0.0-4.0); HEMATOCRIT 24.1 % (35.0-46.0); HEMOGLOBIN 8.2 GM/DL (11.6-15.3); LYMPH % 5.2 % (9.0-44.0); LYMPHOCYTE # 0.6 TH/MM3 (1.0-4.8); MEAN CELL VOLUME 96.9 FL (80.0-100.0); MEAN CORPUSCULAR HEMOGLOBIN 32.9 PG (27.0-34.0); MEAN CORPUSCULAR HGB CONC 33.9 % (32.0-36.0); MEAN PLATELET VOLUME 7.2 FL (7.0-11.0); MONO % 8.7 % (0.0-8.0); NEUT % 85.7 % (16.0-70.0); PLATELET COUNT 301 TH/MM3 (150-450); RED BLOOD COUNT 2.49 MIL/MM3 (4.00-5.30); RED CELL DISTRIBUTION WIDTH 14.8 % (11.6-17.2); WHITE BLOOD COUNT 11.1 TH/MM3 (4.0-11.0)
[2017-08-19 04:31] LABS: ALBUMIN 2.8 GM/DL (3.4-5.0); ALKALINE PHOSPHATASE 229 U/L (45-117); ALT (GPT) 130 U/L (10-53); AST (GOT) 157 U/L (15-37); BICARBONATE 29.5 MEQ/L (21.0-32.0); BLOOD UREA NITROGEN 23 MG/DL (7-18); CALCIUM 8.6 MG/DL (8.5-10.1); CHLORIDE 107 MEQ/L (98-107); GLOMERULAR FILTRATION RATE 30 ML/MIN (>89); GLUCOSE,RANDOM 112 MG/DL (74-106); SODIUM (NA) 144 MEQ/L (136-145); TOTAL BILIRUBIN ADULT 0.2 MG/DL (0.2-1.0); TOTAL PROTEIN 6.6 GM/DL (6.4-8.2)
--- NOTE | 2017-08-19 05:29 | RADRPT ---
EXAM DATE: 08/19/2017 5:07 AM EDT AGE/SEX: 62 years / Female INDICATIONS: Post op, RIPSAW GRADER shunt placement. CLINICAL DATA: This is the patient's initial encounter. Patient reports that signs and symptoms have been present for 1 day and indicates a pain score of 0/10. MEDICAL/SURGICAL HISTORY: Hypertension. Lymphoma. Cerebrovascular disease. Chemotherapy. . Selam nt RADIATION DOSE: 56.35 CTDI (mGy) COMPARISON: [facility] [place], CT BRAIN W/O CONTRAST, 07/25/2017. . TECHNIQUE: CT of the head without contrast. Using automated exposure control and adjustment of the mA and/or kV according to patient size, radiation dose was kept as low as reasonably achievable to ob tain optimal diagnostic quality images. FINDINGS: Cerebrum: The ventricles are stable in appearance. There is been interval placement of a ventricular shunt catheter via a right frontal approach. Tip of the catheter lies in the right lateral ventricle . Again noted is a large high density focal mass centered in the left basal ganglia and thalamic dagoberto on. There is surrounding edema. There is mass effect on the right lateral ventricle. No evidence of m idline shift, hemorrhage or acute infarction. No extraaxial fluid collections are seen. Posterior Fossa: The cerebellum and brainstem are intact. The 4th ventricle is midline. The cerebe llopontine angle is unremarkable. Extracranial: The visualized portion of the orbits is intact. Skull: The calvaria is intact. No evidence of skull fracture. Post Contrast: No abnormal areas of parenchymal or dural enhancement. No evidence of blood-brain ba rrier breakdown. CONCLUSION: 1. Interval placement of ventricular shunt catheter with tip in the right lateral ventricle and no h emorrhage. 2. Stable high density mass with surrounding edema Electronically signed by: Andrew Bell MD 08/19/2017 5:27 AM EDT
[2017-08-19] MEDS: LEVOTHYROXINE SODIUM 150 MCG TAB PO SCH (06:30)
[2017-08-19] MEDS: CHLORHEXIDINE 0.12% (ORAL KIT) 15 ML CUP MT SCH ×2 (08:00→20:45)
[2017-08-19] MEDS: PANTOPRAZOLE SODIUM 40 MG VIAL IVP SCH (09:34)
[2017-08-19] MEDS: levETIRAcetam 500 MG TAB PO SCH ×2 (09:35→20:44)
[2017-08-19] MEDS: FERROUS SULFATE 325 MG (65 MG ELEMENTAL IRON) TAB PO SCH (09:35)
[2017-08-19] MEDS: CITALOPRAM HYDROBROMIDE 20 MG TAB PO SCH (09:35)
[2017-08-19] MEDS: DOCUSATE SODIUM 100 MG CAP PO SCH ×2 (09:36→20:43)
[2017-08-19] MEDS: ALLOPURINOL 100 MG TAB PO SCH ×2 (09:36→20:43)
[2017-08-19] MEDS: FAMOTIDINE 20 MG TAB PO SCH ×2 (09:36→20:44)
[2017-08-19] MEDS: DOCUSATE SODIUM 50 MG/SENNA 8.6 MG TAB PO SCH ×2 (09:36→20:43)
[2017-08-19] MEDS: NS + KCL 20 MEQ INJ 1,000 ML IV SCH ×3 (09:37→22:44)
--- NOTE | 2017-08-19 10:21 | HHI.PR ---
Subjective Remarks DW daughter at bedside. Patient is more alert. Communicating better per her daughter. Objective Vitals Vital Signs Date Time Temp Pulse Resp B/P (MAP) Pulse Ox O2 Delivery O2 Flow Rate FiO2 08/19/17 08:18 95 08/19/17 06:00 62 08/19/17 04:00 98.9 67 18 128/68 (88) 96 08/19/17 04:00 67 08/19/17 03:46 100 Nasal Cannula 3.00 08/19/17 02:00 64 08/19/17 00:00 98.4 67 14 134/64 (87) 97 08/19/17 00:00 67 08/18/17 23:29 99 Nasal Cannula 5.00 08/18/17 22:00 68 08/18/17 20:00 98.3 66 22 140/72 (94) 97 08/18/17 20:00 66 08/18/17 18:45 97.8 60 19 125/71 (89) 95 Nasal Cannula 2 08/18/17 18:30 63 22 133/74 (93) 97 Nasal Cannula 2 08/18/17 18:15 68 16 132/67 (88) 97 Nasal Cannula 2 08/18/17 18:05 97.8 71 20 123/57 (79) 98 Nasal Cannula 2 08/18/17 15:00 78 18 146/59 (88) 96 08/18/17 13:40 Nasal Cannula 3 08/18/17 13:40 98.1 61 18 168/75 (106) 94 08/18/17 12:00 64 08/18/17 12:00 98.5 64 18 167/72 (103) 95 I/O 08/18/17 08/18/17 08/18/17 08/19/17 08/19/17 08/19/17 07:00 15:00 23:00 07:00 15:00 23:00 Intake Total 480 ml 50 ml 1320 ml 1242 ml Output Total 200 ml 645 ml 1025 ml Balance 280 ml 50 ml 675 ml 217 ml Intake Oral 480 ml 120 ml 360 ml IV Total 50 ml 100 ml 882 ml Other 1100 ml Output Urine Total 200 ml 475 ml 1025 ml Estimated Blood Loss 150 ml Other 20 ml # Voids 3 # Bowel Movements 0 Result Diagram: 08/19/17 0330 08/19/17 0330 Objective Remarks GENERAL: Obese female in no acute distress. CARDIOVASCULAR: Normal rate and regular rhythm without murmurs, gallops, or rubs. RESPIRATORY: Clear to auscultation. Breath sounds equal bilaterally. No wheezes , rales, or rhonchi. GASTROINTESTINAL: Abdomen soft, non-tender, nondistended. Normal active bowel sounds MUSCULOSKELETAL: Extremities without clubbing, cyanosis, or edema. NEURO: Awake and alert. Right LE 4/5, RUE 1/5. Left sided strength is normal. Procedures Procedure: Stereotactic biopsy of Left basal ganglia brain mass A/P Problem List: (1) Brain mass ICD Code: G93.9 - Disorder of brain, unspecified (2) Dementia without behavioral disturbance ICD Code: F03.90 - Unspecified dementia without behavioral disturbance (3) Hypertension ICD Code: I10 - Essential (primary) hypertension (4) Hyperlipidemia ICD Code: E78.5 - Hyperlipidemia, unspecified (5) Seizure ICD Code: R56.9 - Unspecified convulsions Assessment and Plan 61-year-old female with a history of Lymphoma who is brought to the emergency room at [facility] in [place] for increasing confusion, slurred speech, and right-sided weakness. CT of the head was performed and showed a brain mass with midline shift of 6.8 mm with differential including subacute hemorrhage versus neoplastic process. The patient was accepted in transfer by Dr. Barth for neurosurgical evaluation here at [facility] in [place]. Patient underwent biopsy which revealed B cell lymphoma. Oncology following and she was treated with methotrexate. Transferred back to ICU due to worsening clinical status and worsening CT on 08/17. 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 Worsening on 08/17 CT Neurosurgery following. Patient is status post THERMOSCREW OPERATOR shunt placement on 08/18/17. Radiation Oncology consulted. Continue IV dexamethasone Continue to follow clinically Neurology following Cancer related encephalopathy Continue supportive care Hypothyroidism, chronic Continue supplements Follows as outpatient Hypertension Continue baseline treatment Follow blood pressures Adjust treatments as needed Asthma No exacerbation Breathing treatments as needed H/o ischemic CVA with possible seizure activity at the time of the CVA - no seizures since and does not take AEDs Monitor for any seizure activity Continue Keppra PO Cerebyx 100mg Q8 DCd and change to phenytoin PO continue Hyperlipidemia Continue present treatment Follow as an outpatient Bipolar disorder No change to baseline treatments Obstructive sleep apnea CPAP Debility Secondary to brain edema Continue physical therapy DVT prophylaxis GI prophylaxis. Pepcid as patient is on steroids. Bleed risk is present SCDs Discharge Planning Continue care in the ICU today, consider transfer to floor tomorrow if she continues to improve or remain stable. Akhil Calderón MD August 19, 2017 10:21
--- NOTE | 2017-08-19 11:34 | HHI.NPPN ---
Subjective Renal Failure: Acute History of Present Illness 62-year-old female with past medical history of hypertension, chronic obstructive pulmonary disease, hypothyroidism, history of non-Hodgkin's lymphoma, hyperlipidemia, cerebrovascular accident, was admitted on 07/14/2017 because of brain mass and possibility of subacute hemorrhage. Additional Remarks Resting comfortably with no acute complaints. (Marisel Durham) Review of Systems General Constitutional: Fatigue (Marisel Durham) Respiratory Respiratory Remarks Denies any SOB (Marisel Durham) Cardiovascular Cardiac Remarks Denies CP (Marisel Durham) Gastrointestinal GI Remarks Denies abdominal pain (Marisel Durham) Objective Data Data Vital Signs Date Time Temp Pulse Resp B/P (MAP) Pulse Ox O2 Delivery O2 Flow Rate FiO2 08/19/17 08:18 95 08/19/17 06:00 62 08/19/17 04:00 98.9 67 18 128/68 (88) 96 08/19/17 04:00 67 08/19/17 03:46 100 Nasal Cannula 3.00 08/19/17 02:00 64 08/19/17 00:00 98.4 67 14 134/64 (87) 97 08/19/17 00:00 67 08/18/17 23:29 99 Nasal Cannula 5.00 08/18/17 22:00 68 08/18/17 20:00 98.3 66 22 140/72 (94) 97 08/18/17 20:00 66 08/18/17 18:45 97.8 60 19 125/71 (89) 95 Nasal Cannula 2 08/18/17 18:30 63 22 133/74 (93) 97 Nasal Cannula 2 08/18/17 18:15 68 16 132/67 (88) 97 Nasal Cannula 2 08/18/17 18:05 97.8 71 20 123/57 (79) 98 Nasal Cannula 2 08/18/17 15:00 78 18 146/59 (88) 96 08/18/17 13:40 Nasal Cannula 3 08/18/17 13:40 98.1 61 18 168/75 (106) 94 08/18/17 12:00 64 08/18/17 12:00 98.5 64 18 167/72 (103) 95 (Marisel Durham [facility]) -: 08/19/17 0330 08/19/17 0330 Microbiology 08/18/17 Gram Stain - Final, Resulted 08/18/17 CSF Culture - Preliminary, Resulted NO GROWTH IN 24 HOURS. Imaging Last Impressions Head CT 08/19/17 0000 Signed Impressions: CONCLUSION: Chest X-Ray 08/13/17 0000 Signed Impressions: Service Date/Time: July 12:03 - CONCLUSION: 1. Improved aeration at the lung bases, presumably improved atelectasis. 2. Otherwise, no acute abnormality or significant interval change. Frankie Dao MD Renal Ultrasound 08/10/17 0000 Signed Impressions: Service Date/Time: Thursday, August 10, 2017 11:22 - CONCLUSION: 1. Hypoechoic lesion just superior to the right kidney likely represents right adrenal lesion. 2. Bilateral renal cysts. Orlando Tavarez MD Thyroid Ultrasound 07/30/17 0000 Signed Impressions: Service Date/Time: July 08:47 - CONCLUSION: 1. Diffusely heterogeneous multinodular thyroid gland. 2. 1.7 cm solid nodule in the inferior right lobe and 2 mixed nodules in the mid and inferior left pole meet criteria for fine needle aspiration. Frankie Dao MD Bone Biopsy CT 07/28/17 0000 Signed Impressions: Service Date/Time: Friday, July 28, 2017 13:46 - CONCLUSION: 1. Uncomplicated CT guided bone marrow aspirate. 2. Uncomplicated CT guided bone marrow biopsy. Israel Garvin MD Lumbar Puncture Fluoroscopy 07/27/17 0000 Signed Impressions: Service Date/Time: Thursday, July 27, 2017 15:37 - CONCLUSION: Uncomplicated fluoroscopically guided lumbar puncture with pressures as above. Kwasi Wilkins MD Chest CT 07/26/17 0000 Signed Impressions: Service Date/Time: Thursday, July 27, 2017 15:56 - CONCLUSION: 1. Atelectasis at the lung bases but no lung mass or adenopathy. No effusions. 2. Numerous bilateral thyroid nodules measuring up to about 1.5 cm in diameter. See abdomen CT for findings below the diaphragm. Job Barrera MD Abdomen/Pelvis CT 07/26/17 0000 Signed Impressions: Service Date/Time: Thursday, July 27, 2017 15:56 - CONCLUSION: 1. No acute findings abdomen pelvic CT. No definite evidence for metastatic disease. 2.5 cm likely right adrenal adenoma. 2. Mild fatty liver. Job Barrera MD Brain MRI 07/15/17 0000 Signed Impressions: Service Date/Time: Saturday, July 15, 2017 15:42 - CONCLUSION: Left basal ganglia mass with moderate associated vasogenic edema. Mild-moderate hemispheric mass effect. Serpiginous enhancement in the contralateral right mid to high convexity frontal region. Israel Ruelas MD (GellermannMarisel M. CRYSTALIZER TENDER) Physical Exam General Appearance: Well Nourished, No Acute Distress, Comfortable (GellermannJodyMarisel M. CRYSTALIZER TENDER) Eyes Eye Exam: Pupils Equal (GellermannJodyMarisel M. CRYSTALIZER TENDER) Throat Throat Exam: Oral Mucosa Turkey & Moist (GellermannMarisel M. CRYSTALIZER TENDER) Neck Neck Exam: Neck Supple, Trachea Midline (GellermannJodyMarisel M. CRYSTALIZER TENDER) Pulmonary Resp Exam: Clear Bilaterally, Breath Sounds Equal, No Distress, Decreased Bases (GellermannJodyMarisel M. CRYSTALIZER TENDER) Cardiology CV Exam: Regular, Normal Sinus Rhythm (GellermannJodyMarisel M. CRYSTALIZER TENDER) Gastrointestinal/Abdomen GI Exam: Soft, Non-Tender, Bowel Sounds Present (GellermannJodyMarisel M. CRYSTALIZER TENDER) Extremeties Extremities Exam: Trace Edema (GellermannJodyMarisel M. CRYSTALIZER TENDER) Neurologic Neuro Exam: Alert, Awake, Oriented (GellermannMarisel M. CRYSTALIZER TENDER) Psychiatric Psych Exam: Appropriate Responses (HedylerMarisel lindsey M. CRYSTALIZER TENDER) Assessment/Plan Assessment Summary: JJ/Acute Renal Failure Problem List: (1) Hyperlipidemia ICD Codes: E78.5 - Hyperlipidemia, unspecified (2) Seizure ICD Codes: R56.9 - Unspecified convulsions (3) Hypertension ICD Codes: I10 - Essential (primary) hypertension (4) B-cell lymphoma ICD Codes: C85.10 - Unspecified B-cell lymphoma, unspecified site (5) Brain mass ICD Codes: G93.9 - Disorder of brain, unspecified (6) Renal insufficiency ICD Codes: N28.9 - Disorder of kidney and ureter, unspecified Plan: Patient developed JJ, Most likely has ATN due to Chemotherapy. Remains non oliguric Renal U/S noted. Urine Sodium is normal, not low. Urine Eosinophils negative. Creatinine continues to improve at 2.62- > 2.59 -> 2.41 ->2.24 ->1.91 ->1.70 UOP at 1 L/24 hours IVF continue with gentle hydration S/P BOAT ENGINE MECHANIC shunt on 08/18 Continue to encourage PO fluid intake. Follow the urine out put and BMP. (Marisel Durham) Problem List: (1) Hyperlipidemia ICD Codes: E78.5 - Hyperlipidemia, unspecified (2) Seizure ICD Codes: R56.9 - Unspecified convulsions (3) Hypertension ICD Codes: I10 - Essential (primary) hypertension (4) B-cell lymphoma ICD Codes: C85.10 - Unspecified B-cell lymphoma, unspecified site (5) Brain mass ICD Codes: G93.9 - Disorder of brain, unspecified (6) Renal insufficiency ICD Codes: N28.9 - Disorder of kidney and ureter, unspecified Plan: Patient developed JJ, Most likely has ATN due to Chemotherapy. Remains non oliguric Renal U/S noted. Urine Sodium is normal, not low. Urine Eosinophils negative. Creatinine continues to improve at 2.62- > 2.59 -> 2.41 ->2.24 ->1.91 ->1.70 UOP at 1 L/24 hours IVF continue with gentle hydration S/P BOAT ENGINE MECHANIC shunt on 08/18 Continue to encourage PO fluid intake. Follow the urine out put and BMP. Patient seen and examined, agree with above. Creatinine is improving. (Lisandro Winters MD) Problem Qualifiers (1) B-cell lymphoma: Qualified Codes: C85.10 - Unspecified B-cell lymphoma, unspecified site Marisel Durham August 19, 2017 11:34 Lisandro Winters MD August 20, 2017 00:16
--- NOTE | 2017-08-19 11:40 | PD.OP ---
Operative Report Date of Surgery: August 18, 2017 Preoperative Diagnosis: Obstructive hydrocephalus Postoperative Diagnosis: Obstructive hydrocephalus Procedure: Placement of ventriculoperitoneal shunt Anesthesia: general endotracheal Surgeon: Miguel Sutton Instructor [employer](s): Eva Smith Operation and Findings: INDICATIONS FOR THE PROCEDURE Ms Sun is a 61 year-old female who presented with neurological findings of right sided weakness and was found to have left basal ganglia enhancing mass. She developed progressive mental status changes and a follow up CT of the brain showed obstructive hydrocephalus caused by an enlarging brain mass. The [id number] details of the procedure, its indications, alternatives, risks and potential complications were fully discussed with the patient. The patient fully understood. All questions were answered. No guarantees were given. The patient voiced requesting the procedure and provided informed consents. The patient was offered the alternative of not having aggressive management. DETAILS OF THE SURGICAL PROCEDURE: After the induction of general anesthesia, endotracheal intubation was performed. A Toro catheter, bilateral EILEEN hose and sequential compression devices were placed and kept throughout the procedure. The patient was positioned supine on a 30-80 table with the head over a gel doughnut. All pressure points were carefully padded with eggcrate mattress. The right frontotemporal parietal area was shaved prepped and draped in the usual sterile fashion, as well as the neck, chest and abdomen. A small incision was made in the patient's right upper quadrant with a #10 blade and the dissection was carried out through the subcutaneous tissue and Valentina's fascia. The rectus sheath was carefully opened with Metzenbaum scissors and the rectus muscles were split along its fibers. The posterior rectus sheath was elevated and carefully opened. The peritoneum was elevated with mosquitoes and opened in the standard fashion. The peritoneal cavity was visualized and exposed. A pursestring suture was placed around the peritoneal opening. Using a tunneler a subcutaneous tunnel was created connecting the abdominal incision with the planned head incision. A small incision was made in the right frontal area and a self-retaining retractor was placed in the incision. An entry point for the catheter was selected 90 mm posterior to the supraorbital rim and 25 mm lateral to the midline. A Midas Freddy was used to create the angelia hole. The dura was coagulated with the bipolar in a cruciform fashion. A peritoneal catheter was placed in the subcutaneous tunnel previously created and a pocket was created underneath the galea for placement of the valve. A Blooie programmable valve has calibrated at a pressure of 120 mmHg and flushed according to the paper pattern folder's instructions. The valve was secured to the proximal end of the peritoneal catheter using a 2-0 silk. Then, a ventricular catheter was advanced into the ventricular system. A good flow of cerebrospinal fluid was obtained.~ The catheter was connected to the valve and the connection secured with a 2-0 silk. Cerebrospinal fluid was noted to drip through the distal end of the peritoneal catheter. The peritoneal catheter was placed in the peritoneal cavity under direct visualization. The pursestring suture was carefully adjusted with special care not to strangulate the catheter. The rectus sheath was closed using interrupted 2-0 Vicryl suture. The Valentina's fascia was approximated with 3-0 Vicryl, and the subcutaneous with 3-0 Vicryl. The skin was closed with running subcuticular 4-0 Vicryl in the abdomen. The skin incision was closed using interrupted 3-0 Vicryl for the galea and chip to the skin. At the end of the procedure, the sponge, needle and instrument counts were all correct. The estimated blood was less than 30 cc. No blood transfusion was given. No intraoperative complications occurred. The patient received preoperative prophylactic antibiotics. The patient was then extubated and transferred to the recovery room in stable condition. Miguel Sutton MD August 19, 2017 11:40
--- NOTE | 2017-08-19 11:41 | PD.ONC.PN ---
Subjective Subjective Remarks Afebrile overnight. Patient resting in bed. still very disoriented per daughter. tolerated TIRE VULCANIZER shunt placement yesterday. per daughter she was trying to get out of bed all night last night due to confusion. Objective Data Date Time Temp Pulse Resp B/P (MAP) Pulse Ox O2 Delivery O2 Flow Rate FiO2 08/19/17 08:18 95 08/19/17 06:00 62 08/19/17 04:00 98.9 67 18 128/68 (88) 96 08/19/17 04:00 67 08/19/17 03:46 100 Nasal Cannula 3.00 08/19/17 02:00 64 08/19/17 00:00 98.4 67 14 134/64 (87) 97 08/19/17 00:00 67 08/18/17 23:29 99 Nasal Cannula 5.00 08/18/17 22:00 68 08/18/17 20:00 98.3 66 22 140/72 (94) 97 08/18/17 20:00 66 08/18/17 18:45 97.8 60 19 125/71 (89) 95 Nasal Cannula 2 08/18/17 18:30 63 22 133/74 (93) 97 Nasal Cannula 2 08/18/17 18:15 68 16 132/67 (88) 97 Nasal Cannula 2 08/18/17 18:05 97.8 71 20 123/57 (79) 98 Nasal Cannula 2 08/18/17 15:00 78 18 146/59 (88) 96 08/18/17 13:40 Nasal Cannula 3 08/18/17 13:40 98.1 61 18 168/75 (106) 94 08/18/17 12:00 64 08/18/17 12:00 98.5 64 18 167/72 (103) 95 08/19/17 08/19/17 08/19/17 07:00 15:00 23:00 Intake Total 1242 ml Output Total 1025 ml Balance 217 ml Result Diagram: 08/19/17 03308/19/17 033 Laboratory Results Laboratory Tests Test 08/18/17 17:22 08/18/17 20:45 08/19/17 03:30 CSF Volume (Tube 1) 10.0 ML CSF Supernatant Color (tube 1) CLEAR CSF Gross Blood (Tube 1) 0 CSF WBC (Tube 1) 11 /MM3 CSF RBC (Tube 1) 43 /MM3 CSF Neutrophils 50 % CSF Lymphocytes 25 % CSF Monocytes 25 % CSF Differential Comment CSF Glucose 68 MG/DL CSF Total Protein 13.2 MG/DL White Blood Count 12.3 TH/MM3 11.1 TH/MM3 Red Blood Count 2.76 MIL/MM3 2.49 MIL/MM3 Hemoglobin 8.8 GM/DL 8.2 GM/DL Hematocrit 26.8 % 24.1 % Mean Corpuscular Volume 97.2 FL 96.9 FL Mean Corpuscular Hemoglobin 32.1 PG 32.9 PG Mean Corpuscular Hemoglobin Concent 33.0 % 33.9 % Red Cell Distribution Width 14.3 % 14.8 % Platelet Count 297 TH/MM3 301 TH/MM3 Mean Platelet Volume 7.4 FL 7.2 FL Blood Urea Nitrogen 25 MG/DL 23 MG/DL Creatinine 1.85 MG/DL 1.70 MG/DL Random Glucose 131 MG/DL 112 MG/DL Calcium Level 9.0 MG/DL 8.6 MG/DL Sodium Level 143 MEQ/L 144 MEQ/L Potassium Level 3.8 MEQ/L 4.5 MEQ/L Chloride Level 105 MEQ/L 107 MEQ/L Carbon Dioxide Level 27.6 MEQ/L 29.5 MEQ/L Anion Gap 10 MEQ/L 8 MEQ/L Estimat Glomerular Filtration Rate 27 ML/MIN 30 ML/MIN Neutrophils (%) (Auto) 85.7 % Lymphocytes (%) (Auto) 5.2 % Monocytes (%) (Auto) 8.7 % Eosinophils (%) (Auto) 0.1 % Basophils (%) (Auto) 0.3 % Neutrophils # (Auto) 9.5 TH/MM3 Lymphocytes # (Auto) 0.6 TH/MM3 Monocytes # (Auto) 1.0 TH/MM3 Eosinophils # (Auto) 0.0 TH/MM3 Basophils # (Auto) 0.0 TH/MM3 CBC Comment DIFF FINAL Differential Comment Total Protein 6.6 GM/DL Albumin 2.8 GM/DL Alkaline Phosphatase 229 U/L Aspartate Amino Transf (AST/SGOT) 157 U/L Alanine Aminotransferase (ALT/SGPT) 130 U/L Total Bilirubin 0.2 MG/DL Culture Results Microbiology Date/Time Source Procedure Growth Status 08/18/17 17:22 Cerebral Spinal Fluid Shunt Fluid Gram Stain - Final Resulted 08/18/17 17:22 Cerebral Spinal Fluid Shunt Fluid CSF Culture - Preliminary NO GROWTH IN 24 HOURS. Resulted Imaging Studies Last [address] 08/19/17 0000 Signed Impressions: CONCLUSION: Administered Medications Medications (Trade) Dose Ordered Sig/Thaddeus Route PRN Reason Start Time Stop Time Status Last Admin Dose Admin Senna/Docusate Sodium (Maddy-Colace) 1 tab BID PO 07/15/17 09:00 08/19/17 09:36 Magnesium Hydroxide (Milk Of Magnesia Liq) 30 ml Q12H PRN PO Mild constipation 07/14/17 22:15 08/18/17 08:41 Sennosides (Senokot) 17.2 mg Q12H PRN PO Moderate constipation 07/14/17 22:15 08/15/17 11:57 Bisacodyl (Dulcolax Supp) 10 mg DAILY PRN RECTAL SEVERE CONSITIPATION/ IF NPO 07/14/17 22:15 08/07/17 22:05 Lactulose (Lactulose Liq) 30 ml DAILY PRN PO SEVERE CONSITIPATION/ IF PO 07/14/17 22:15 08/02/17 09:39 Albuterol Sulfate (Albuterol Neb) 2.5 mg Q4HR NEB PRN NEB sob/wheezing 07/14/17 22:30 08/19/17 03:46 Allopurinol (Zyloprim) 100 mg BID PO 07/15/17 09:00 08/19/17 09:36 Atorvastatin Calcium (Lipitor) 40 mg HS PO 07/15/17 21:00 08/18/17 20:27 Citalopram Hydrobromide (CeleXA) 20 mg DAILY PO 07/15/17 09:00 08/19/17 09:35 Levothyroxine Sodium (Synthroid) 150 mcg DAILY@0700 PO 07/15/17 07:00 08/19/17 06:30 Quetiapine Fumarate (SEROquel) 25 mg HS PO 07/15/17 21:00 08/18/17 20:27 Chlorhexidine Gluconate (Peridex 0.12% Liq) 15 ml BID@08,20 MT 07/16/17 20:00 08/18/17 20:27 Chlorhexidine Gluconate (Chlorhexidine 2% Cloth) Taper DAILY@04 TOP 07/17/17 04:00 07/13/18 03:59 07/29/17 04:00 Heparin Sodium (Porcine) (Heparin Central Flush) See Protocol DAILY IV FLUSH 07/17/17 09:00 08/16/17 08:19 Heparin Sodium (Porcine) (Heparin Central Flush) See Protocol UNSCH PRN IV FLUSH SEE PROTOCOL TABLE 07/16/17 19:30 08/09/17 05:52 Sodium Chloride (NS Flush) UNSCH PRN IV FLUSH SEE PROTOCOL TABLE 07/16/17 19:30 08/12/17 11:34 Sodium Chloride (NS Flush) See Protocol UNSCH PRN IV FLUSH FLUSH AFTER USING IV ACCESS 07/16/17 19:30 08/06/17 10:29 Docusate Sodium (Colace) 100 mg BID PO 07/17/17 21:00 08/19/17 09:36 Ondansetron HCl (Zofran Inj) 4 mg Q6H PRN IV PUSH NAUSEA OR VOMITING 07/17/17 10:45 08/09/17 06:03 Phenytoin (Dilantin) 100 mg Q8HR PO 07/22/17 14:00 Future Hold 07/25/17 13:35 Ferrous Sulfate (Ferrous Sulfate) 325 mg DAILY PO 07/24/17 09:00 08/19/17 09:35 Levetriacetam (Keppra) 1,000 mg Q12HR PO 08/02/17 21:00 08/19/17 09:35 Famotidine (Pepcid) 10 mg BID PO 08/11/17 09:00 08/19/17 09:36 Leucovorin Calcium 100 mg/ Sodium Chloride 50 ml @ 400 mls/hr Q6H IV 08/14/17 09:00 08/19/17 09:33 Phenytoin (Dilantin) 100 mg Q8H PO 08/15/17 01:00 08/19/17 09:35 Sodium Chloride 1,000 ml @ 42 mls/hr [id number] IV 08/17/17 15:00 08/17/17 14:23 Dexamethasone Sodium Phosphate (Decadron Inj) 4 mg Q6H IV 08/17/17 20:00 08/19/17 09:34 Potassium Chloride/Sodium Chloride 1,000 ml @ 100 mls/hr Q10H IV 08/18/17 16:44 08/19/17 09:37 Cefazolin Sodium/ Dextrose 50 ml @ 100 mls/hr Q8H IV 08/19/17 00:00 08/19/17 16:29 08/19/17 09:33 Pantoprazole Sodium (Protonix Inj) 40 mg DAILY IVP 08/19/17 09:00 08/19/17 09:34 Morphine Sulfate (Morphine Inj) 2 mg Q2H PRN IV PUSH PAIN SCALE 1 TO 6 08/18/17 16:45 08/19/17 00:45 Morphine Sulfate (Morphine Inj) 4 mg Q2H PRN IV PUSH PAIN SCALE 7 TO 10 08/18/17 16:45 08/18/17 18:41 Albuterol Sulfate (Albuterol Concentrated Neb) 2.5 mg Q4HR NEB NEB 08/18/17 20:00 08/19/17 08:14 Objective Remarks GENERAL: Middle aged female, sitting up in bed in [facility]. SKIN: Warm and dry. HEAD: Normocephalic. dressings in place are c/d/i. no bleeding from chip. EYES: No injection or drainage. NECK: Supple, trachea midline. CARDIOVASCULAR: Regular rate and rhythm without murmurs. RESPIRATORY: Breath sounds equal bilaterally. No accessory muscle use. GASTROINTESTINAL: Abdomen soft, non-tender, nondistended. EXTREMITIES: No cyanosis NEUROLOGICAL: awake. less flattening of right nasolabial fold compared with yesterday. will not move right arm. weakness noted in right leg. moves left arm and leg freely. Assessment/Plan Problem List: (1) B-cell lymphoma ICD Codes: C85.10 - Unspecified B-cell lymphoma, unspecified site Plan: --s/p TIRE VULCANIZER shunt placement on 08/18, await radiation oncology to start WBR --received high dose methotrexate + Rituxan 08/06/-08/07 for relapsed DLBCL after biopsy of left basal ganglia brain mass returned showing the same. 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 received 6 cycles of R-CHOP under the direction of Dr. Alves at [facility] in [place] (was in remission) (2) Bundle branch block ICD Codes: I45.4 - Nonspecific intraventricular block Plan: --appreciate cardiology assistance. --recommend waiting until methotrexate levels are <0.01 before starting ASA therapy as there is a potential for interaction. (3) Renal insufficiency ICD Codes: N28.9 - Disorder of kidney and ureter, unspecified Plan: --improving, appreciate nephrology assistance. 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 Plan 1. continue to monitor methotrexate levels. 2. continue leucovorin 3. await radiation oncology consult for whole brain radiation. 4. continue steroids per neurosurgery Attending Statement The exam, history, and the medical decision-making described in the above note were completed with the assistance of the mid-level provider. I reviewed and agree with the findings presented. I attest that I had a [id number]-[id number] encounter with the patient on the same day, and personally performed and documented my assessment and findings in the medical record. 62 yoF with WEB WORKER recurrence of lymphoma. S/p HD MTX and rituximab with initial improvement in neurological symptoms followed by worsening. Growth of lesion. S/p placment of shunt due to obstructive hydrocephalus. Radiation oncology has seen patient and discussed risks vs benefits of WBRT. Discussed with daughter Angela at bedside. She is considering XRT vs comfort care. Will consult palliative care team. Problem Qualifiers (1) B-cell lymphoma: Qualified Codes: C85.10 - Unspecified B-cell lymphoma, unspecified site Yin Still August 19, 2017 11:41 Evy Melendez MD August 20, 2017 00:23
--- NOTE | 2017-08-19 16:38 | HHI.NSPN ---
(Ruby Renteria) Note Status Status: Progress Note (Ruby Renteria) Interval History Interval History Ms. Sun is a 61-year-old female who is brought to the emergency room at [facility] for increasing confusion, slurred speech, and right-sided weakness. Work up showed a basal ganglia mass with midline shift of 6.8 mm. She underwent stereotactic biopsy of left basal ganglia mass on 07/17. Final pathology reports B cell lymphoma. She was undergoing treatments with oncology. Unfortunately she developed altered mental status, and follow- up CT brain showed evidence of obstructive hydrocephalus. She underwent placement of a ventriculoperitoneal shunt on 08/18/2017. 08/19: Awake, smiling. Patient denies headaches. Appears more alert today. The daughter reports patient has shown improvement following surgery yesterday. No other acute events overnight. (Ruby Renteria) Labs, Micro, & Vital Signs Results Date Time Temp Pulse Resp B/P (MAP) Pulse Ox O2 Delivery O2 Flow Rate FiO2 08/19/17 08:18 95 08/19/17 06:00 62 08/19/17 04:00 98.9 67 18 128/68 (88) 96 08/19/17 04:00 67 08/19/17 03:46 100 Nasal Cannula 3.00 08/19/17 02:00 64 08/19/17 00:00 98.4 67 14 134/64 (87) 97 08/19/17 00:00 67 08/18/17 23:29 99 Nasal Cannula 5.00 08/18/17 22:00 68 08/18/17 20:00 98.3 66 22 140/72 (94) 97 08/18/17 20:00 66 08/18/17 18:45 97.8 60 19 125/71 (89) 95 Nasal Cannula 2 08/18/17 18:30 63 22 133/74 (93) 97 Nasal Cannula 2 08/18/17 18:15 68 16 132/67 (88) 97 Nasal Cannula 2 08/18/17 18:05 97.8 71 20 123/57 (79) 98 Nasal Cannula 2 08/20/17 06:59 Intake Total 120 ml Output Total 500 ml Balance -380 ml Constitutional Vital Signs Date Time Temp Pulse Resp B/P (MAP) Pulse Ox O2 Delivery O2 Flow Rate FiO2 08/19/17 08:18 95 08/19/17 06:00 62 08/19/17 04:00 98.9 67 18 128/68 (88) 96 08/19/17 04:00 67 08/19/17 03:46 100 Nasal Cannula 3.00 08/19/17 02:00 64 08/19/17 00:00 98.4 67 14 134/64 (87) 97 08/19/17 00:00 67 08/18/17 23:29 99 Nasal Cannula 5.00 08/18/17 22:00 68 08/18/17 20:00 98.3 66 22 140/72 (94) 97 08/18/17 20:00 66 08/18/17 18:45 97.8 60 19 125/71 (89) 95 Nasal Cannula 2 08/18/17 18:30 63 22 133/74 (93) 97 Nasal Cannula 2 08/18/17 18:15 68 16 132/67 (88) 97 Nasal Cannula 2 08/18/17 18:05 97.8 71 20 123/57 (79) 98 Nasal Cannula 2 08/20/17 06:59 Intake Total 120 ml Output Total 500 ml Balance -380 ml (Ruby Renteria) Review of Systems Constitutional: DENIES: Fever, Chills Cardiovascular: DENIES: Chest pain Neurologic: COMPLAINS OF: Localized weakness, DENIES: Headache, Seizures (Ruby Renteria) Physical Exam CONSTITUTIONAL: no apparent distress. HEENT: Head wrapped in surgical dressing. Wound is clean and dry. Nonicteric sclera. MUSCULOSKELETAL: No obvious deformities to extremities, no clubbing. Moves extremities with right hemiparesis. NEUROLOGICAL: Awake & alert. Oriented to name. Slightly converses in Vietnamese. Follows some simple commands in Vietnamese. CN: pupils equal. Right supranuclear palsy. (Ruby Renteria) Medications Current Medications Current Medications Medications (Trade) Dose Ordered Sig/Thaddeus Route PRN Reason Start Time Stop Time Status Last Admin Dose Admin Naloxone HCl (Narcan Inj) 0.4 mg UNSCH PRN IV PUSH SEE LABEL COMMENTS 07/14/17 22:15 Senna/Docusate Sodium (Maddy-Colace) 1 tab BID PO 07/15/17 09:00 08/19/17 09:36 Magnesium Hydroxide (Milk Of Magnesia Liq) 30 ml Q12H PRN PO Mild constipation 07/14/17 22:15 08/18/17 08:41 Sennosides (Senokot) 17.2 mg Q12H PRN PO Moderate constipation 07/14/17 22:15 08/15/17 11:57 Bisacodyl (Dulcolax Supp) 10 mg DAILY PRN RECTAL SEVERE CONSITIPATION/ IF NPO 07/14/17 22:15 08/07/17 22:05 Lactulose (Lactulose Liq) 30 ml DAILY PRN PO SEVERE CONSITIPATION/ IF PO 07/14/17 22:15 08/02/17 09:39 Albuterol Sulfate (Albuterol Neb) 2.5 mg Q4HR NEB PRN NEB sob/wheezing 07/14/17 22:30 08/19/17 03:46 Allopurinol (Zyloprim) 100 mg BID PO 07/15/17 09:00 08/19/17 09:36 Atorvastatin Calcium (Lipitor) 40 mg HS PO 07/15/17 21:00 08/18/17 20:27 Citalopram Hydrobromide (CeleXA) 20 mg DAILY PO 07/15/17 09:00 08/19/17 09:35 Levothyroxine Sodium (Synthroid) 150 mcg DAILY@0700 PO 07/15/17 07:00 08/19/17 06:30 Quetiapine Fumarate (SEROquel) 25 mg HS PO 07/15/17 21:00 08/18/17 20:27 Lorazepam (Ativan Inj) 2 mg Q10M PRN IV PUSH SEE LABEL COMMENTS 07/15/17 01:45 Chlorhexidine Gluconate (Peridex 0.12% Liq) 15 ml BID@08,20 MT 07/16/17 20:00 08/18/17 20:27 Miscellaneous Information 1 [id number] XX 07/16/17 13:30 Chlorhexidine Gluconate (Chlorhexidine 2% Cloth) Taper DAILY@04 TOP 07/17/17 04:00 07/13/18 03:59 07/29/17 04:00 Chlorhexidine Gluconate (Chlorhexidine 2% Cloth) 3 pack UNSCH PRN TOP HYGIENIC CARE 07/16/17 13:30 Heparin Sodium (Porcine) (Heparin Central Flush) See Protocol DAILY IV FLUSH 07/17/17 09:00 08/16/17 08:19 Heparin Sodium (Porcine) (Heparin Central Flush) See Protocol UNSCH PRN IV FLUSH SEE PROTOCOL TABLE 07/16/17 19:30 08/09/17 05:52 Sodium Chloride (NS Flush) UNSCH PRN IV FLUSH SEE PROTOCOL TABLE 07/16/17 19:30 08/12/17 11:34 Sodium Chloride (NS Flush) See Protocol UNSCH PRN IV FLUSH FLUSH AFTER USING IV ACCESS 07/16/17 19:30 08/06/17 10:29 Sodium Chloride (NS Flush) SEE PROTOCOL UNSCH PRN IV FLUSH SEE PROTOCOL TABLE 07/16/17 19:30 Docusate Sodium (Colace) 100 mg BID PO 07/17/17 21:00 08/19/17 09:36 Ondansetron HCl (Zofran Inj) 4 mg Q6H PRN IV PUSH NAUSEA OR VOMITING 07/17/17 10:45 08/09/17 06:03 Calcium Gluconate (Calcium Gluconate Inj) 1 gm UNSCH PRN IV SEE LABEL COMMENTS 07/17/17 10:45 Phenytoin (Dilantin) 100 mg Q8HR PO 07/22/17 14:00 Future Hold 07/25/17 13:35 Ferrous Sulfate (Ferrous Sulfate) 325 mg DAILY PO 07/24/17 09:00 08/19/17 09:35 Terbutaline Sulfate (Brethine Inj) 1 mg UNSCH PRN SQ For Extravasation 07/25/17 16:30 Levetriacetam (Keppra) 1,000 mg Q12HR PO 08/02/17 21:00 08/19/17 09:35 Famotidine (Pepcid) 10 mg BID PO 08/11/17 09:00 08/19/17 09:36 Miscellaneous (Pill Splitter) 1 ea UNSCH PRN OTHER SEE LABEL COMMENTS 08/10/17 15:15 Leucovorin Calcium 100 mg/ Sodium Chloride 50 ml @ 400 mls/hr Q6H IV 08/14/17 09:00 08/19/17 09:33 Phenytoin (Dilantin) 100 mg Q8H PO 08/15/17 01:00 08/19/17 09:35 Sodium Chloride 1,000 ml @ 42 mls/hr [id number] IV 08/17/17 15:00 08/17/17 14:23 Dexamethasone Sodium Phosphate (Decadron Inj) 4 mg Q6H IV 08/17/17 20:00 08/19/17 09:34 Potassium Chloride/Sodium Chloride 1,000 ml @ 100 mls/hr Q10H IV 08/18/17 16:44 08/19/17 09:37 Pantoprazole Sodium (Protonix Inj) 40 mg DAILY IVP 08/19/17 09:00 08/19/17 09:34 Acetaminophen/ Hydrocodone Bitart ([place] 10-325 Mg) 1 tab Q4H PRN PO PAIN SCALE 1 TO 5 08/18/17 16:45 Acetaminophen/ Hydrocodone Bitart ([place] 10-325 Mg) 2 tab Q4H PRN PO PAIN SCALE 6 TO 10 08/18/17 16:45 Morphine Sulfate (Morphine Inj) 2 mg Q2H PRN IV PUSH PAIN SCALE 1 TO 6 08/18/17 16:45 08/19/17 00:45 Morphine Sulfate (Morphine Inj) 4 mg Q2H PRN IV PUSH PAIN SCALE 7 TO 10 08/18/17 16:45 08/18/17 18:41 Acetaminophen (Tylenol) 650 mg Q4H PRN PO TEMPERATURE > 101.5 F 08/18/17 16:45 Albuterol Sulfate (Albuterol Concentrated Neb) 2.5 mg Q4HR NEB NEB 08/18/17 20:00 08/19/17 15:55 Miscellaneous Information ([facility] Nursing Information) ALL NURSING DEPARTME... 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 I reviewed and agree with the findings presented. I attest that I had a [id number] encounter with the patient on the same day, and personally performed and documented my assessment and findings in the medical record. (Miguel Sutton MD) Ruby Renteria August 19, 2017 16:38 Miguel Sutton MD August 19, 2017 18:59
[2017-08-19] MEDS: ATORVASTATIN 40 MG TAB PO SCH (20:43)
[2017-08-19] MEDS: QUEtiapine FUMARATE 25 MG TAB PO SCH (20:44)
[2017-08-19] MEDS: SODIUM CHLOR 0.9% 1000 ML INJ 1,000 ML IV SCH (20:50)
[2017-08-20] VITALS (13 sets, daily range): BP systolic 121–161; BP diastolic 60–74; PULSE 52–72; RESP 16–29; TEMP 97.9–99.4; O2SAT 93–98
[2017-08-20] MEDS: RESP: ALBUTEROL CONC 2.5 MG/0.5 ML NEB NEB SCH ×6 (00:10→20:37)
[2017-08-20] MEDS: PHENYTOIN SODIUM 100 MG CAP PO SCH ×3 (02:09→18:35)
[2017-08-20] MEDS: LEUCOVORIN IV SCH ×4 (02:10→22:04)
[2017-08-20] MEDS: DEXAMETHASONE SOD PHOS 4 MG/ML VIAL IV SCH ×4 (02:10→22:03)
[2017-08-20] MEDS: SODIUM CHLORIDE 0.9% IV SCH ×4 (02:10→22:04)
[2017-08-20] MEDS: CHLORHEXIDINE GLUCONATE 2 % 1 PACK (2 CLOTHS) TOP SCH (03:57)
[2017-08-20 04:34] LABS: AUTOMATED NEUTROPHIL # 6.5 TH/MM3 (1.8-7.7); BASOPHIL % 0.6 % (0.0-2.0); EOSINOPHIL # 0.1 TH/MM3 (0-0.4); EOSINOPHIL % 1.2 % (0.0-4.0); HEMATOCRIT 23.7 % (35.0-46.0); HEMOGLOBIN 7.8 GM/DL (11.6-15.3); LYMPHOCYTE # 0.7 TH/MM3 (1.0-4.8); MEAN CELL VOLUME 97.5 FL (80.0-100.0); MEAN CORPUSCULAR HEMOGLOBIN 32.2 PG (27.0-34.0); MEAN PLATELET VOLUME 7.1 FL (7.0-11.0); MONO % 10.5 % (0.0-8.0); MONOCYTE # 0.9 TH/MM3 (0-0.9); NEUT % 79.7 % (16.0-70.0); PLATELET COUNT 301 TH/MM3 (150-450); RED BLOOD COUNT 2.43 MIL/MM3 (4.00-5.30); RED CELL DISTRIBUTION WIDTH 14.5 % (11.6-17.2); WHITE BLOOD COUNT 8.2 TH/MM3 (4.0-11.0)
[2017-08-20 05:02] LABS: ALBUMIN 2.8 GM/DL (3.4-5.0); AST (GOT) 48 U/L (15-37); BICARBONATE 26.7 MEQ/L (21.0-32.0); BLOOD UREA NITROGEN 18 MG/DL (7-18); CALCIUM 8.8 MG/DL (8.5-10.1); CHLORIDE 113 MEQ/L (98-107); CREATININE 1.43 MG/DL (0.50-1.00); GLOMERULAR FILTRATION RATE 37 ML/MIN (>89); GLUCOSE,RANDOM 107 MG/DL (74-106); SODIUM (NA) 147 MEQ/L (136-145)
[2017-08-20 05:03] LABS: ALT (GPT) 48 U/L (10-53)
[2017-08-20 05:05] LABS: ALKALINE PHOSPHATASE 197 U/L (45-117); TOTAL BILIRUBIN ADULT 0.2 MG/DL (0.2-1.0); TOTAL PROTEIN 6.6 GM/DL (6.4-8.2)
[2017-08-20] MEDS: LEVOTHYROXINE SODIUM 150 MCG TAB PO SCH (07:32)
[2017-08-20] MEDS: CHLORHEXIDINE 0.12% (ORAL KIT) 15 ML CUP MT SCH ×2 (08:00→22:04)
[2017-08-20] MEDS: NS + KCL 20 MEQ INJ 1,000 ML IV SCH ×2 (09:00→18:35)
[2017-08-20] MEDS: PANTOPRAZOLE SODIUM 40 MG VIAL IVP SCH (09:01)
[2017-08-20] MEDS: DOCUSATE SODIUM 50 MG/SENNA 8.6 MG TAB PO SCH ×2 (09:01→22:07)
[2017-08-20] MEDS: CITALOPRAM HYDROBROMIDE 20 MG TAB PO SCH (09:02)
[2017-08-20] MEDS: DOCUSATE SODIUM 100 MG CAP PO SCH ×2 (09:02→22:05)
[2017-08-20] MEDS: ALLOPURINOL 100 MG TAB PO SCH ×2 (09:02→22:07)
[2017-08-20] MEDS: levETIRAcetam 500 MG TAB PO SCH ×2 (09:02→22:05)
[2017-08-20] MEDS: FAMOTIDINE 20 MG TAB PO SCH ×2 (09:03→22:06)
[2017-08-20] MEDS: FERROUS SULFATE 325 MG (65 MG ELEMENTAL IRON) TAB PO SCH (09:03)
--- NOTE | 2017-08-20 10:20 | HHI.PR ---
Subjective Remarks Discussed with daughter at bedside. She is leaning more toward Hospice at this point. Declining radiation. She is waiting to discuss with palliative care. Objective Vitals Vital Signs Date Time Temp Pulse Resp B/P (MAP) Pulse Ox O2 Delivery O2 Flow Rate FiO2 08/20/17 04:00 60 08/20/17 04:00 98.5 60 16 135/63 (87) 98 08/20/17 02:00 62 08/20/17 00:00 67 08/20/17 00:00 99.4 67 18 153/60 (91) 94 08/19/17 22:00 63 08/19/17 20:00 99.4 61 16 154/71 (98) 97 08/19/17 20:00 61 08/19/17 18:00 60 08/19/17 16:00 98.8 58 20 140/66 (90) 99 08/19/17 16:00 58 08/19/17 14:00 64 08/19/17 12:00 60 08/19/17 12:00 98.8 60 16 144/69 (94) 94 I/O 08/19/17 08/19/17 08/19/17 08/20/17 08/20/17 08/20/17 07:00 15:00 23:00 07:00 15:00 23:00 Intake Total 1242 ml 50 ml 1650 ml 2048 ml Output Total 1025 ml 3400 ml 1250 ml Balance 217 ml 50 ml -1750 ml 798 ml Intake Oral 360 ml 600 ml 720 ml IV Total 882 ml 50 ml 1050 ml 1328 ml Output Urine Total 1025 ml 3400 ml 1250 ml # Bowel Movements 0 Result Diagram: 08/20/17 0415 08/20/17 0415 Objective Remarks GENERAL: Obese female in no acute distress. CARDIOVASCULAR: Normal rate and regular rhythm without murmurs, gallops, or rubs. RESPIRATORY: Clear to auscultation. Breath sounds equal bilaterally. No wheezes , rales, or rhonchi. GASTROINTESTINAL: Abdomen soft, non-tender, nondistended. Normal active bowel sounds MUSCULOSKELETAL: Extremities without clubbing, cyanosis, or edema. NEURO: Awake and alert. Right LE 3/5, RUE 1/5. Left sided strength is normal. Procedures Procedure: Stereotactic biopsy of Left basal ganglia brain mass A/P Problem List: (1) Brain mass ICD Code: G93.9 - Disorder of brain, unspecified (2) Dementia without behavioral disturbance ICD Code: F03.90 - Unspecified dementia without behavioral disturbance (3) Hypertension ICD Code: I10 - Essential (primary) hypertension (4) Hyperlipidemia ICD Code: E78.5 - Hyperlipidemia, unspecified (5) Seizure ICD Code: R56.9 - Unspecified convulsions Assessment and Plan 61-year-old female with a history of Lymphoma who is brought to the emergency room at [facility] in [place] for increasing confusion, slurred speech, and right-sided weakness. CT of the head was performed and showed a brain mass with midline shift of 6.8 mm with differential including subacute hemorrhage versus neoplastic process. The patient was accepted in transfer by Dr. Barth for neurosurgical evaluation here at [facility] in [place]. Patient underwent biopsy which revealed B cell lymphoma. Oncology following and she was treated with methotrexate. Transferred back to ICU due to worsening clinical status and worsening CT on 08/17. B-cell lymphoma with brain metastasis left basal ganglia mass with vasogenic edema and midline shift status post biopsy. Worsening on 08/17 CT Neurosurgery following. Patient is status post [employer] shunt placement on 08/18/17. Radiation Oncology consulted. Family declined radiation and considering hospice. Continue IV dexamethasone Continue to follow clinically Neurology following Palliative care to discuss options with family today. They are leaning more towards hospice and comfort care. Cancer related encephalopathy Continue supportive care Hypothyroidism, chronic Continue supplements Follows as outpatient Hypertension Continue baseline treatment Follow blood pressures Adjust treatments as needed Asthma No exacerbation Breathing treatments as needed H/o ischemic CVA with possible seizure activity at the time of the CVA - no seizures since and does not take AEDs Monitor for any seizure activity Continue Keppra PO Cerebyx 100mg Q8 DCd and change to phenytoin PO continue Hyperlipidemia Continue present treatment Follow as an outpatient Bipolar disorder No change to baseline treatments Obstructive sleep apnea CPAP Debility Secondary to brain edema Continue physical therapy DVT prophylaxis GI prophylaxis. Pepcid as patient is on steroids. Bleed risk is present SCDs Discharge Planning Stable to transfer to floor. Akhil Calderón MD August 20, 2017 10:20
--- NOTE | 2017-08-20 11:33 | PD.ONC.PN ---
Subjective Subjective Remarks Afebrile overnight. Patient resting in bed with daughter at bedside. Daughter is considering hospice for her mother. Palliative care has been consulted. Objective Data Date Time Temp Pulse Resp B/P (MAP) Pulse Ox O2 Delivery O2 Flow Rate FiO2 08/20/17 10:00 55 08/20/17 08:00 98.6 71 26 123/66 (85) 95 08/20/17 08:00 71 08/20/17 04:00 60 08/20/17 04:00 98.5 60 16 135/63 (87) 98 08/20/17 02:00 62 08/20/17 00:00 67 08/20/17 00:00 99.4 67 18 153/60 (91) 94 08/19/17 22:00 63 08/19/17 20:00 99.4 61 16 154/71 (98) 97 08/19/17 20:00 61 08/19/17 18:00 60 08/19/17 16:00 98.8 58 20 140/66 (90) 99 08/19/17 16:00 58 08/19/17 14:00 64 08/19/17 12:00 60 08/19/17 12:00 98.8 60 16 144/69 (94) 94 08/20/17 08/20/17 08/20/17 07:00 15:00 23:00 Intake Total 2048 ml Output Total 1250 ml Balance 798 ml Result Diagram: 08/20/17 0415 08/20/17 0415 Laboratory Results Laboratory Tests Test 08/19/17 12:25 08/20/17 04:15 Methotrexate Level 0.05 UMOL/L White Blood Count 8.2 TH/MM3 Red Blood Count 2.43 MIL/MM3 Hemoglobin 7.8 GM/DL Hematocrit 23.7 % Mean Corpuscular Volume 97.5 FL Mean Corpuscular Hemoglobin 32.2 PG Mean Corpuscular Hemoglobin Concent 33.0 % Red Cell Distribution Width 14.5 % Platelet Count 301 TH/MM3 Mean Platelet Volume 7.1 FL Neutrophils (%) (Auto) 79.7 % Lymphocytes (%) (Auto) 8.0 % Monocytes (%) (Auto) 10.5 % Eosinophils (%) (Auto) 1.2 % Basophils (%) (Auto) 0.6 % Neutrophils # (Auto) 6.5 TH/MM3 Lymphocytes # (Auto) 0.7 TH/MM3 Monocytes # (Auto) 0.9 TH/MM3 Eosinophils # (Auto) 0.1 TH/MM3 Basophils # (Auto) 0.0 TH/MM3 CBC Comment DIFF FINAL Differential Comment Blood Urea Nitrogen 18 MG/DL Creatinine 1.43 MG/DL Random Glucose 107 MG/DL Total Protein 6.6 GM/DL Albumin 2.8 GM/DL Calcium Level 8.8 MG/DL Alkaline Phosphatase 197 U/L Aspartate Amino Transf (AST/SGOT) 48 U/L Alanine Aminotransferase (ALT/SGPT) 48 U/L Total Bilirubin 0.2 MG/DL Sodium Level 147 MEQ/L Potassium Level 4.1 MEQ/L Chloride Level 113 MEQ/L Carbon Dioxide Level 26.7 MEQ/L Anion Gap 7 MEQ/L Estimat Glomerular Filtration Rate 37 ML/MIN Culture Results Microbiology Date/Time Source Procedure Growth Status 08/18/17 17:22 Cerebral Spinal Fluid Shunt Fluid Gram Stain - Final Resulted 08/18/17 17:22 Cerebral Spinal Fluid Shunt Fluid CSF Culture - Preliminary NO GROWTH IN 48 HOURS. Resulted Administered Medications Medications (Trade) Dose Ordered Sig/Thaddeus Route PRN Reason Start Time Stop Time Status Last Admin Dose Admin Senna/Docusate Sodium (Maddy-Colace) 1 tab BID PO 07/15/17 09:00 08/20/17 09:01 Magnesium Hydroxide (Milk Of Magnesia Liq) 30 ml Q12H PRN PO Mild constipation 07/14/17 22:15 08/18/17 08:41 Sennosides (Senokot) 17.2 mg Q12H PRN PO Moderate constipation 07/14/17 22:15 08/15/17 11:57 Bisacodyl (Dulcolax Supp) 10 mg DAILY PRN RECTAL SEVERE CONSITIPATION/ IF NPO 07/14/17 22:15 08/07/17 22:05 Lactulose (Lactulose Liq) 30 ml DAILY PRN PO SEVERE CONSITIPATION/ IF PO 07/14/17 22:15 08/02/17 09:39 Albuterol Sulfate (Albuterol Neb) 2.5 mg Q4HR NEB PRN NEB sob/wheezing 07/14/17 22:30 08/19/17 03:46 Allopurinol (Zyloprim) 100 mg BID PO 07/15/17 09:00 08/20/17 09:02 Atorvastatin Calcium (Lipitor) 40 mg HS PO 07/15/17 21:00 08/19/17 20:43 Citalopram Hydrobromide (CeleXA) 20 mg DAILY PO 07/15/17 09:00 08/20/17 09:02 Levothyroxine Sodium (Synthroid) 150 mcg DAILY@0700 PO 07/15/17 07:00 08/20/17 07:32 Quetiapine Fumarate (SEROquel) 25 mg HS PO 07/15/17 21:00 08/19/17 20:44 Chlorhexidine Gluconate (Peridex 0.12% Liq) 15 ml BID@08,20 MT 07/16/17 20:00 08/19/17 20:45 Chlorhexidine Gluconate (Chlorhexidine 2% Cloth) Taper DAILY@04 TOP 07/17/17 04:00 07/13/18 03:59 07/29/17 04:00 Heparin Sodium (Porcine) (Heparin Central Flush) See Protocol DAILY IV FLUSH 07/17/17 09:00 08/16/17 08:19 Heparin Sodium (Porcine) (Heparin Central Flush) See Protocol UNSCH PRN IV FLUSH SEE PROTOCOL TABLE 07/16/17 19:30 08/09/17 05:52 Sodium Chloride (NS Flush) UNSCH PRN IV FLUSH SEE PROTOCOL TABLE 07/16/17 19:30 08/12/17 11:34 Sodium Chloride (NS Flush) See Protocol UNSCH PRN IV FLUSH FLUSH AFTER USING IV ACCESS 07/16/17 19:30 08/06/17 10:29 Docusate Sodium (Colace) 100 mg BID PO 07/17/17 21:00 08/20/17 09:02 Ondansetron HCl (Zofran Inj) 4 mg Q6H PRN IV PUSH NAUSEA OR VOMITING 07/17/17 10:45 08/09/17 06:03 Phenytoin (Dilantin) 100 mg Q8HR PO 07/22/17 14:00 Future Hold 07/25/17 13:35 Ferrous Sulfate (Ferrous Sulfate) 325 mg DAILY PO 07/24/17 09:00 08/20/17 09:03 Levetriacetam (Keppra) 1,000 mg Q12HR PO 08/02/17 21:00 08/20/17 09:02 Famotidine (Pepcid) 10 mg BID PO 08/11/17 09:00 08/20/17 09:03 Leucovorin Calcium 100 mg/ Sodium Chloride 50 ml @ 400 mls/hr Q6H IV 08/14/17 09:00 08/20/17 09:01 Phenytoin (Dilantin) 100 mg Q8H PO 08/15/17 01:00 08/20/17 09:01 Sodium Chloride 1,000 ml @ 42 mls/hr [id number] IV 08/17/17 15:00 08/19/17 20:50 Dexamethasone Sodium Phosphate (Decadron Inj) 4 mg Q6H IV 08/17/17 20:00 08/20/17 08:58 Potassium Chloride/Sodium Chloride 1,000 ml @ 100 mls/hr Q10H IV 08/18/17 16:44 08/20/17 09:00 Pantoprazole Sodium (Protonix Inj) 40 mg DAILY IVP 08/19/17 09:00 08/20/17 09:01 Morphine Sulfate (Morphine Inj) 2 mg Q2H PRN IV PUSH PAIN SCALE 1 TO 6 08/18/17 16:45 08/19/17 00:45 Morphine Sulfate (Morphine Inj) 4 mg Q2H PRN IV PUSH PAIN SCALE 7 TO 10 08/18/17 16:45 08/18/17 18:41 Albuterol Sulfate (Albuterol Concentrated Neb) 2.5 mg Q4HR NEB NEB 08/18/17 20:00 08/20/17 04:46 Objective Remarks GENERAL: Middle aged female, lying in bed in [facility]. SKIN: Warm and dry. HEAD: Normocephalic. incision line in scalp is clean with no active bleeding. EYES: No injection or drainage. NECK: Supple, trachea midline. CARDIOVASCULAR: Regular rate and rhythm RESPIRATORY: Breath sounds equal bilaterally. No accessory muscle use. GASTROINTESTINAL: Abdomen soft, non-tender, nondistended. EXTREMITIES: No cyanosis NEUROLOGICAL: awake. right sided facial droop. right arm and right leg with weakness. Assessment/Plan Problem List: (1) B-cell lymphoma ICD Codes: C85.10 - Unspecified B-cell lymphoma, unspecified site Plan: --s/p [employer]CHANGE SPECIALIST shunt placement on 5/22, WBR was being considered, patient now considering hospice. --received high dose methotrexate + Rituxan 08/06/-08/07 for relapsed DLBCL after biopsy of left basal ganglia brain mass returned showing the same. 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 received 6 cycles of R-CHOP under the direction of Dr. Alves at [facility] in [place] (was in remission) (2) Bundle branch block ICD Codes: I45.4 - Nonspecific intraventricular block Plan: --recommend waiting until methotrexate levels are <0.01 before starting ASA therapy as there is a potential for interaction. (3) Renal insufficiency ICD Codes: N28.9 - Disorder of kidney and ureter, unspecified Plan: --creatinine continuing to improve. monitor (4) Confusion ICD Codes: R41.0 - Disorientation, unspecified Assessment 61y/o female with EFFICIENCY EXPERT lymphoma. Plan 1. continue leucovorin/ monitor MTX 2. consult palliative care, daughter/patient's HCS is considering hospice 3. monitor CBC, CMP Attending Statement The exam, history, and the medical decision-making described in the above note were completed with the assistance of the mid-level provider. I reviewed and agree with the findings presented. I attest that I had a [id number] encounter with the patient on the same day, and personally performed and documented my assessment and findings in the medical record. 62 yoF with EFFICIENCY EXPERT relapse treated with HDMTX with unfortunate progression of disease. She has spoken with Dr. Blank from radiation oncology. Family considering comfort measures vs XRT. Problem Qualifiers (1) B-cell lymphoma: Qualified Codes: C85.10 - Unspecified B-cell lymphoma, unspecified site Yin Still August 20, 2017 11:33 Evy Melendez MD August 20, 2017 16:58
--- NOTE | 2017-08-20 11:54 | PD.CONS ---
Consult Service Palliative Care Consult Requested By Dr. Melendez . Primary Care Physician Unknown . Reason for Consultation a. To assist with evaluation and management of symptoms including: encephalopathy, pain b. To assist medical decision maker(s) with: better understanding of current medical conditions; weighing benefits/burdens of medical treatment options; making medical treatment decisions. . HPI History of Present Illness Ms. Sun is a 62-year-old female with a medical history that includes previous CVA, hypertension, osteoporotic porosis, hypothyroidism, JAMI, bipolar disorder, non-Hodgkin's lymphoma, GERD, hyperlipidemia, nephrolithiasis , hypothyroidism and thyroid nodules. Patient was brought to ED at [facility] in [place] for evaluation of increasing confusion, slurred speech and right-sided weakness [address] of the head showed a brain mass with a 6.8 minute meter midline shift; differential diagnosis subacute hemorrhage versus neoplastic process. The patient was transferred to [facility] in [place] on 07/14/2017 for neurosurgical evaluation. Upon arrival to [place], the patient remained confused bioethics and knows this and did not understand the circumstances of her hospitalization. Dr. Sutton, neurosurgery, evaluated the patient. Patient was started on dexamethasone 4 mg IV every 6 hours. MRI of the brain on 07/15/17 revealed a left basal ganglia mass with moderate associated vasogenic edema; mild-moderate hemispheric mass-effect. Rapid response was called on 07/16/17 when the patient became unresponsive. Patient was transferred to the intensive care unit and emergently intubated for airway protection An abnormal EEG on 07/17/17 showed continuous left hemisphere slowing, suggesting left hemisphere structural abnormality, but there was no ictal or epileptiform discharge. There was less pronounced slowing in the right hemisphere. Dr. Sutton took the patient to surgery on the same day for stereotactic biopsy of the left basal ganglia brain mass Psychiatry was consulted on 07/21/2017. Per Dr. Baumann's note, patient was disoriented to time and place. She was unable to verbalize her medical treatment goals and did not have insight or judgment regarding her medical conditions and/or the consequences of medical decisions. Patient was deemed incapacitated to participate and medical decision making. Patient was cleared by neurosurgery on 07/22/2017. Initial plan was to transfer patient back to [facility] where she follow-up with Dr. Maxi Alves (oncology) outpatient in [facility], but [facility] was unable to accept the patient stating they could not provide the level of care that the patient required. Patient returned to the intensive care unit on 07/25/2017 after she became unresponsive. A stat CT of the brain showed persistent 3.2 cm mass in the left basal ganglia/caudate region that appeared more prominent. Increased density noted which could represent some degree of hemorrhage; there continues to be vasogenic edema and focal left to right midline shift. EEG was again abnormal consistent with focal slowing, but no epileptiform activity; however could not rule out underlying focal seizure activity. On Dilantin as well as Keppra. Neurology (Dr. Duffy) was consulted; Keppra dose was increased to 500 mg IV every 6 hours. Oncology (Dr. Melendez) was consulted for recommendations in treating patient with CORE STRIPPER lymphoma. Patient underwent a stereotactic biopsy of the left basal ganglia brain mass on 07/17/2017. Pathology report returned as diffuse large B- cell lymphoma with cells that are CD20 positive, CD79A positive, BCL6 positive, BCL-2 positive, MUM1 positive. Patient's daughter reports patient has a history of diffuse large B cell lymphoma status post treatment with 6 cycles of R CHOP 2 years ago; patient was in remission upon completion of treatment. Ophthalmology evaluated the patient and reported there was no ocular involvement seen on eye exam. = Brain biopsy - pathology significant for diffuse large B cell lymphoma. = CT thorax/chest showed atelectasis at the lung base but no lung mass or adenopathy, no effusions. Numerous bilateral thyroid nodules measuring up to about 1.5 cm in diameter. = CT abdomen/pelvis revealed a 2.5 cm right adrenal mass most likely an adenoma. Mild fatty liver. No acute findings in the spleen, left adrenal or pancreas. = Bone marrow biopsy pathology shows no CORE STRIPPER lymphoma involvement = LP flow cytometry and cytology negative = HIV negative 07/29/2017: Echocardiogram showing normal left ventricular systolic functio with an estimated EF in the range of 55-60% 08/07/17 : Per oncology. Patient remains on bicarb drip prior to initiation of methotrexate-will begin once urine pH is at least 7. Requesting results of thyroid biopsy via pathology. This was done at the [place] [facility] with Dr. Hutchinson. Plan to administer Rituxan later in the day. 24 hours after starting methotrexate, will initiate rescue treatment with leucovorin and continue until the methotrexate concentration in the blood is less than 0.1 mol /L. This will be checked once daily. Will continue patient on steroids. Patient having intermittent idioventricular rhythm without symptoms. Cardiology was consulted on 08/11/2017. Given patient's history of cancer with metastasis, patient is not an ideal candidate for any type of invasive workup or procedures. Dr. Haque made recommendations for conservative management; will continue to monitor patient closely. Nephrology was also consulted and continues to follow patient secondary to acute kidney injury. Patient was transferred to [facility] on 08/17/[address] of the brain showed an enlarging hyperdense left basal ganglionic mass; increasing mass-effect with further left to right shift and enlarging lateral ventricles characteristic of obstructive hydrocephalus. Patient was taken to surgery the following day on for ventriculoperitoneal shunt placement. Radiation oncology evaluated the patient and discussed the risks versus benefits of WB RT with the patient's daughter, Angela. Daughter (Angela) is considering XRT versus transitioning to comfort focused care. Palliative Care was consulted to assist with symptom management and to discuss with the family the benefits and burdens of her current illnesses and the options regarding future care. . Function/Cognitive Trajectory Patient was previously treated for lymphoma in April,. She received several rounds of RCHOP before going into remission the following January,. Patient's daughter states the patient became debilitated during this period of time with weight loss and progressively increased weakness. The patient has regained her strength and independence since that time and was living independently with her in [place] prior to this hospitalization. . Review of Systems Constitutional: COMPLAINS OF: Generalized weakness, DENIES: Fever Respiratory: DENIES: Shortness of breath Hematologic/Lymphatics: COMPLAINS OF: Bruising Neurologic: COMPLAINS OF: Localized weakness Psychiatric: COMPLAINS OF: Confusion Past Family Social History Coded Allergies: atorvastatin (Verified Allergy, Intermediate, puffy face/eyes w/redness, ) Uncoded Allergies: swelling (Allergy, Intermediate, 08/07/17) cotton (Allergy, Mild, Itching, 08/04/17) fresh cotton plant Past Medical History Hypothyroidism CVA with possible seizure activity at the time of the CVA - no seizures since and does not take antiepileptic medications Hypertension Osteoporosis Asthma Obstructive sleep apnea Bipolar disorder Non-Hodgkin's lymphoma GERD Hyperlipidemia Nephrolithiasis Thyroid nodules . Past Surgical History Cholecystectomy Temporary stent in kidney placed 04/2015, removed 12/2016 - due to obstructive lymphadenopathy Biopsy of pancreas, and liver . Reported Medications Proair Hfa 8.5 GM Inh (Albuterol Sulfate) 90 Mcg/Act Aer 2 Puff INH Q4-6H PRN 108 mcg/actuation Proair Hfa (Albuterol Sulfate) 90 Mcg Hfa.aer.ad Omeprazole 20 Mg Tab 20 Mg PO DAILY Quetiapine (Quetiapine Fumarate) 25 Mg Tab 25 Mg PO HS Centrum (Multiple Vitamins W/ Minerals) 1 Chew 1 Tab CHEW DAILY Levothyroxine (Levothyroxine Sodium) 150 Mcg Tab 150 Mcg PO DAILY Folic Acid 0.4 Mg Tab 1 Mg PO HS Ferrous Sulfate ER (Ferrous Sulfate) 140 Mg (45 Mg Iron) Tab 65 Mg PO DAILY Celexa (Citalopram Hydrobromide) 20 Mg Tab 20 Mg PO DAILY Atorvastatin (Atorvastatin Calcium) 40 Mg Tab 40 Mg PO HS Allopurinol 100 Mg Tab 100 Mg PO BID Acyclovir 400 Mg Tab 400 Mg PO THURSDAY, , THURSDAY Tylenol (Acetaminophen) 325 Mg Tab 500 Mg PO Q4H . Current Medications Medications (Trade) Dose Ordered Sig/Thaddeus Route Start Time Stop Time Status Last Admin (Narcan Inj) 0.4 mg UNSCH PRN IV PUSH 07/14/17 22:15 (Maddy-Colace) 1 tab BID PO 07/15/17 09:00 08/20/17 09:01 (Milk Of Magnesia Liq) 30 ml Q12H PRN PO 07/14/17 22:15 08/18/17 08:41 (Senokot) 17.2 mg Q12H PRN PO 07/14/17 22:15 08/15/17 11:57 (Dulcolax Supp) 10 mg DAILY PRN RECTAL 07/14/17 22:15 08/07/17 22:05 (Lactulose Liq) 30 ml DAILY PRN PO 07/14/17 22:15 08/02/17 09:39 (Albuterol Neb) 2.5 mg Q4HR NEB PRN NEB 07/14/17 22:30 08/19/17 03:46 (Zyloprim) 100 mg BID PO 07/15/17 09:00 08/20/17 09:02 (Lipitor) 40 mg HS PO 07/15/17 21:00 08/19/17 20:43 (CeleXA) 20 mg DAILY PO 07/15/17 09:00 08/20/17 09:02 (Synthroid) 150 mcg DAILY@0700 PO 07/15/17 07:00 08/20/17 07:32 (SEROquel) 25 mg HS PO 07/15/17 21:00 08/19/17 20:44 (Ativan Inj) 2 mg Q10M PRN IV PUSH 07/15/17 01:45 (Peridex 0.12% Liq) 15 ml BID@08,20 MT 07/16/17 20:00 08/19/17 20:45 Miscellaneous Information 1 Q361D XX 07/16/17 13:30 (Chlorhexidine 2% Cloth) Taper DAILY@04 TOP 07/17/17 04:00 07/13/18 03:59 07/29/17 04:00 (Chlorhexidine 2% Cloth) 3 pack UNSCH PRN TOP 07/16/17 13:30 (Heparin Central Flush) See Protocol DAILY IV FLUSH 07/17/17 09:00 08/16/17 08:19 (Heparin Central Flush) See Protocol UNSCH PRN IV FLUSH 07/16/17 19:30 08/09/17 05:52 (NS Flush) UNSCH PRN IV FLUSH 07/16/17 19:30 08/12/17 11:34 (NS Flush) See Protocol UNSCH PRN IV FLUSH 07/16/17 19:30 08/06/17 10:29 (NS Flush) SEE PROTOCOL UNSCH PRN IV FLUSH 07/16/17 19:30 (Colace) 100 mg BID PO 07/17/17 21:00 08/20/17 09:02 (Zofran Inj) 4 mg Q6H PRN IV PUSH 07/17/17 10:45 08/09/17 06:03 (Calcium Gluconate Inj) 1 gm UNSCH PRN IV 07/17/17 10:45 (Dilantin) 100 mg Q8HR PO 07/22/17 14:00 Future Hold 07/25/17 13:35 (Ferrous Sulfate) 325 mg DAILY PO 07/24/17 09:00 08/20/17 09:03 (Brethine Inj) 1 mg UNSCH PRN SQ 07/25/17 16:30 (Keppra) 1,000 mg Q12HR PO 08/02/17 21:00 08/20/17 09:02 (Pepcid) 10 mg BID PO 08/11/17 09:00 08/20/17 09:03 (Pill Splitter) 1 ea UNSCH PRN OTHER 08/10/17 15:15 Leucovorin Calcium 100 mg/ Sodium Chloride 50 ml @ 400 mls/hr Q6H IV 08/14/17 09:00 08/20/17 09:01 (Dilantin) 100 mg Q8H PO 08/15/17 01:00 08/20/17 09:01 Sodium Chloride 1,000 ml @ 42 mls/hr [id number] IV 08/17/17 15:00 08/19/17 20:50 (Decadron Inj) 4 mg Q6H IV 08/17/17 20:00 08/20/17 08:58 Potassium Chloride/Sodium Chloride 1,000 ml @ 100 mls/hr Q10H IV 08/18/17 16:44 08/20/17 09:00 (Protonix Inj) 40 mg DAILY IVP 08/19/17 09:00 08/20/17 09:01 ([place] 10-325 Mg) 1 tab Q4H PRN PO 08/18/17 16:45 ([place] 10-325 Mg) 2 tab Q4H PRN PO 08/18/17 16:45 (Morphine Inj) 2 mg Q2H PRN IV PUSH 08/18/17 16:45 08/19/17 00:45 (Morphine Inj) 4 mg Q2H PRN IV PUSH 08/18/17 16:45 08/18/17 18:41 (Tylenol) 650 mg Q4H PRN PO 08/18/17 16:45 (Albuterol Concentrated Neb) 2.5 mg Q4HR NEB NEB 08/18/17 20:00 08/20/17 04:46 . Family History Mother with Parkinson's and kidney failure Father with COPD Additional family history includes: hypertension, lung disease, hyperlipidemia, arthritis, and thyroid disease . Substance Use Tobacco: Remote smoking history from 1966 through 1999 (18-mdyo-dncn smoking history). Alcohol: Social EtOH consumption until recently Prescription med abuse: None known Illicits: None unknown . Psychosocial History Patient was born and raised in [place] and later lived [place]. She lives in [place] with her . She has been with her for approximately 35 years, and they got 3 years ago. She has 5 living children. Highest level of kids education is ninth grade; patient supported by [facility]. She has a known psychiatric history including bipolar disorder, depression and anxiety. Patient has had 2 previous psychiatric hospitalizations and 2 previous suicide attempts. Apparently she had a child who was murdered in the late which is when patient began having psychiatric issues. 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 . Spiritual/Cultural Factors Anglican pepe . Today's verbally stated goals: Patient is unable to participate in verbalization of medical treatment goals at this time. . Family/friends goals: Spoke to patient's daughter (Angela) who has requested to speak with someone from hospice in the hopes of taking the patient home. . Ethical and Legal Issues Per [place] statutes, in the absence of written advanced directives healthcare proxy decision making falls to the patient's spouse. However, daughter (Angela) states she is designated as the healthcare surrogate decision maker. I have asked her to bring copies of these documents to be placed in the patient's paper chart and scanned into the patient's EMR. . Physical Exam Vital Signs Date Time Temp Pulse Resp B/P (MAP) Pulse Ox O2 Delivery O2 Flow Rate FiO2 08/20/17 04:00 60 08/20/17 04:00 98.5 60 16 135/63 (87) 98 08/20/17 02:00 62 08/20/17 00:00 67 08/20/17 00:00 99.4 67 18 153/60 (91) 94 08/19/17 22:00 63 08/19/17 20:00 99.4 61 16 154/71 (98) 97 08/19/17 20:00 61 08/19/17 18:00 60 08/19/17 16:00 98.8 58 20 140/66 (90) 99 08/19/17 16:00 58 08/19/17 14:00 64 08/19/17 12:00 60 08/19/17 12:00 98.8 60 16 144/69 (94) 94 . Exam CONSTITUTIONAL/GENERAL: This is an adequately nourished patient, in no apparent distress. TUBES/LINES/DRAINS: SKIN: No jaundice, rashes, or lesions. Ecchymoses on upper extremities. Incision line on scalp is clean with no active bleeding.. Skin temperature appropriate. Not diaphoretic. HEAD: Atraumatic. Normocephalic. EYES: Pupils round, reactive. No scleral icterus. No injection or drainage. Fundi not examined. ENT: Hearing grossly normal. Nose without bleeding or purulent drainage. NECK: Trachea midline. Supple, nontender. No palpable thyroid enlargement or nodularity. CARDIOVASCULAR: Regular rate and rhythm without murmurs, gallops, or rubs. No JVD. Peripheral pulses symmetric. RESPIRATORY/CHEST: Symmetric, unlabored respirations. Clear to auscultation. Breath sounds equal bilaterally. No wheezes, rales, or rhonchi. GASTROINTESTINAL: Abdomen soft, non-tender, nondistended. No hepato-splenomegaly , or palpable masses. No guarding. Bowel sounds present. GENITOURINARY: Without palpable bladder distension. Toro catheter in place. MUSCULOSKELETAL: Extremities without clubbing, cyanosis, or edema. . No mottling or clubbing. LYMPHATICS: No palpable cervical or supraclavicular adenopathy. NEUROLOGICAL: Oriented to self only. Right-sided facial droop. Right-sided hemiparesis. PSYCHIATRIC: No obvious anxiety/depression. No apparent hallucinations or other psychotic thought process. . Diagnostic Tests Laboratory Laboratory Tests Test 08/17/17 15:10 08/18/17 05:20 08/18/17 17:22 08/18/17 20:45 Phenytoin (Dilantin) Level 4.6 MCG/ML (10.0-20.0) White Blood Count 11.0 TH/MM3 (4.0-11.0) 12.3 TH/MM3 (4.0-11.0) Red Blood Count 2.66 MIL/MM3 (4.00-5.30) 2.76 MIL/MM3 (4.00-5.30) Hemoglobin 8.6 GM/DL (11.6-15.3) 8.8 GM/DL (11.6-15.3) Hematocrit 25.5 % (35.0-46.0) 26.8 % (35.0-46.0) Mean Corpuscular Volume 95.8 FL (80.0-100.0) 97.2 FL (80.0-100.0) Mean Corpuscular Hemoglobin 32.5 PG (27.0-34.0) 32.1 PG (27.0-34.0) Mean Corpuscular Hemoglobin Concent 33.9 % (32.0-36.0) 33.0 % (32.0-36.0) Red Cell Distribution Width 14.2 % (11.6-17.2) 14.3 % (11.6-17.2) Platelet Count 307 TH/MM3 (150-450) 297 TH/MM3 (150-450) Mean Platelet Volume 7.2 FL (7.0-11.0) 7.4 FL (7.0-11.0) Neutrophils (%) (Auto) 80.5 % (16.0-70.0) Lymphocytes (%) (Auto) 6.9 % (9.0-44.0) Monocytes (%) (Auto) 11.0 % (0.0-8.0) Eosinophils (%) (Auto) 1.1 % (0.0-4.0) Basophils (%) (Auto) 0.5 % (0.0-2.0) Neutrophils # (Auto) 8.9 TH/MM3 (1.8-7.7) Lymphocytes # (Auto) 0.8 TH/MM3 (1.0-4.8) Monocytes # (Auto) 1.2 TH/MM3 (0-0.9) Eosinophils # (Auto) 0.1 TH/MM3 (0-0.4) Basophils # (Auto) 0.1 TH/MM3 (0-0.2) CBC Comment DIFF FINAL Differential Comment Blood Urea Nitrogen 25 MG/DL (7-18) 25 MG/DL (7-18) Creatinine 1.91 MG/DL (0.50-1.00) 1.85 MG/DL (0.50-1.00) Random Glucose 98 MG/DL (74-106) 131 MG/DL (74-106) Total Protein 6.8 GM/DL (6.4-8.2) Albumin 3.0 GM/DL (3.4-5.0) Calcium Level 8.8 MG/DL (8.5-10.1) 9.0 MG/DL (8.5-10.1) Alkaline Phosphatase 132 U/L (45-117) Aspartate Amino Transf (AST/SGOT) 32 U/L (15-37) Alanine Aminotransferase (ALT/SGPT) 52 U/L (10-53) Total Bilirubin 0.2 MG/DL (0.2-1.0) Sodium Level 144 MEQ/L (136-145) 143 MEQ/L (136-145) Potassium Level 3.6 MEQ/L (3.5-5.1) 3.8 MEQ/L (3.5-5.1) Chloride Level 103 MEQ/L (98-107) 105 MEQ/L (98-107) Carbon Dioxide Level 31.2 MEQ/L (21.0-32.0) 27.6 MEQ/L (21.0-32.0) Anion Gap 10 MEQ/L (5-15) 10 MEQ/L (5-15) Estimat Glomerular Filtration Rate 26 ML/MIN (>89) 27 ML/MIN (>89) Methotrexate Level 0.06 UMOL/L (<0.90) CSF Volume (Tube 1) 10.0 ML CSF Supernatant Color (tube 1) CLEAR (CLEAR) CSF Gross Blood (Tube 1) 0 (0) CSF WBC (Tube 1) 11 /MM3 (0-10) CSF RBC (Tube 1) 43 /MM3 (NONE) CSF Neutrophils 50 % CSF Lymphocytes 25 % CSF Monocytes 25 % CSF Differential Comment CSF Glucose 68 MG/DL (40-80) CSF Total Protein 13.2 MG/DL (15.0-45.0) Test 08/19/17 03:30 08/19/17 12:25 08/20/17 04:15 White Blood Count 11.1 TH/MM3 (4.0-11.0) 8.2 TH/MM3 (4.0-11.0) Red Blood Count 2.49 MIL/MM3 (4.00-5.30) 2.43 MIL/MM3 (4.00-5.30) Hemoglobin 8.2 GM/DL (11.6-15.3) 7.8 GM/DL (11.6-15.3) Hematocrit 24.1 % (35.0-46.0) 23.7 % (35.0-46.0) Mean Corpuscular Volume 96.9 FL (80.0-100.0) 97.5 FL (80.0-100.0) Mean Corpuscular Hemoglobin 32.9 PG (27.0-34.0) 32.2 PG (27.0-34.0) Mean Corpuscular Hemoglobin Concent 33.9 % (32.0-36.0) 33.0 % (32.0-36.0) Red Cell Distribution Width 14.8 % (11.6-17.2) 14.5 % (11.6-17.2) Platelet Count 301 TH/MM3 (150-450) 301 TH/MM3 (150-450) Mean Platelet Volume 7.2 FL (7.0-11.0) 7.1 FL (7.0-11.0) Neutrophils (%) (Auto) 85.7 % (16.0-70.0) 79.7 % (16.0-70.0) Lymphocytes (%) (Auto) 5.2 % (9.0-44.0) 8.0 % (9.0-44.0) Monocytes (%) (Auto) 8.7 % (0.0-8.0) 10.5 % (0.0-8.0) Eosinophils (%) (Auto) 0.1 % (0.0-4.0) 1.2 % (0.0-4.0) Basophils (%) (Auto) 0.3 % (0.0-2.0) 0.6 % (0.0-2.0) Neutrophils # (Auto) 9.5 TH/MM3 (1.8-7.7) 6.5 TH/MM3 (1.8-7.7) Lymphocytes # (Auto) 0.6 TH/MM3 (1.0-4.8) 0.7 TH/MM3 (1.0-4.8) Monocytes # (Auto) 1.0 TH/MM3 (0-0.9) 0.9 TH/MM3 (0-0.9) Eosinophils # (Auto) 0.0 TH/MM3 (0-0.4) 0.1 TH/MM3 (0-0.4) Basophils # (Auto) 0.0 TH/MM3 (0-0.2) 0.0 TH/MM3 (0-0.2) CBC Comment DIFF FINAL DIFF FINAL Differential Comment Blood Urea Nitrogen 23 MG/DL (7-18) 18 MG/DL (7-18) Creatinine 1.70 MG/DL (0.50-1.00) 1.43 MG/DL (0.50-1.00) Random Glucose 112 MG/DL (74-106) 107 MG/DL (74-106) Total Protein 6.6 GM/DL (6.4-8.2) 6.6 GM/DL (6.4-8.2) Albumin 2.8 GM/DL (3.4-5.0) 2.8 GM/DL (3.4-5.0) Calcium Level 8.6 MG/DL (8.5-10.1) 8.8 MG/DL (8.5-10.1) Alkaline Phosphatase 229 U/L (45-117) 197 U/L (45-117) Aspartate Amino Transf (AST/SGOT) 157 U/L (15-37) 48 U/L (15-37) Alanine Aminotransferase (ALT/SGPT) 130 U/L (10-53) 48 U/L (10-53) Total Bilirubin 0.2 MG/DL (0.2-1.0) 0.2 MG/DL (0.2-1.0) Sodium Level 144 MEQ/L (136-145) 147 MEQ/L (136-145) Potassium Level 4.5 MEQ/L (3.5-5.1) 4.1 MEQ/L (3.5-5.1) Chloride Level 107 MEQ/L (98-107) 113 MEQ/L (98-107) Carbon Dioxide Level 29.5 MEQ/L (21.0-32.0) 26.7 MEQ/L (21.0-32.0) Anion Gap 8 MEQ/L (5-15) 7 MEQ/L (5-15) Estimat Glomerular Filtration Rate 30 ML/MIN (>89) 37 ML/MIN (>89) Methotrexate Level 0.05 UMOL/L (<0.90) . Result Diagram: 08/20/17 0415 08/20/17 0415 Microbiology Microbiology Date/Time Source Procedure Growth Status 08/18/17 17:22 Cerebral Spinal Fluid Shunt Fluid Gram Stain - Final Resulted 08/18/17 17:22 Cerebral Spinal Fluid Shunt Fluid CSF Culture - Preliminary NO GROWTH IN 48 HOURS. Resulted . Imaging Last 72 hours Impressions Abdomen X-Ray 08/20/17 0000 Signed Impressions: CONCLUSION: Benign-appearing abdomen. Head CT 08/19/17 0000 Signed Impressions: CONCLUSION: 1. Interval placement of ventricular shunt catheter with tip in the right late ral ventricle and no hemorrhage. 2. Stable high density mass with surrounding edema . Procedures 07/16/17: Endotracheal intubation 07/17/17: Extubation 08/18/2017: Ventriculoperitoneal shunt placement. . Patient/Family Conference Present at Family Conference: Met with patient's daughter at bedside and in the family conference room. . Family Conference Location: Bedside, Consult Room Issues Discussed: * Palliative care role, purpose, approach * Additional medical, psychosocial, and spiritual history * Patients general health, functional status, and cognitive changes in the months leading up to the current hospitalization * Patient/family understanding of the current medical problems * Patient/family understanding of prognosis * Patients goals of care as best understood from advance directives and/or conversations and/or values * Current medical treatment options and benefits/burdens of those options * Likely scenarios comparing ongoing aggressive care with a transition to comfort measures only * Questions answered to the best of my ability * Palliative care contact information provided . Assessment and Plan Disease Oriented Problem List: (1) Brain mass (2) Renal insufficiency (3) B-cell lymphoma (4) Dementia without behavioral disturbance (5) Hypertension (6) Seizure (7) Hyperlipidemia Symptom Scale: (1) Pain (2) Encephalopathy Pertinent Non-Medical Issues Psychosocial: Patient was born and raised in [place] and later lived [place]. She lives in [place] with her . She has been with her for approximately 35 years, and they got 3 years ago. She has 5 living children. Highest level of kids education is ninth grade; patient supported by [facility]. She has a known psychiatric history including bipolar disorder, depression and anxiety. Patient has had 2 previous psychiatric hospitalizations and 2 previous suicide attempts. Apparently she had a child who was murdered in the late which is when patient began having psychiatric issues. 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 Spiritual: Anglican pepe Legal: Per [place] statutes, in the absence of written advanced directives healthcare proxy decision making falls to the patient's spouse. However, daughter (Angela) states she is designated as the healthcare surrogate decision maker. I have asked her to bring copies of these documents to be placed in the patient's paper chart and scanned into the patient's EMR. Ethical issues impacting care: No known ethical issues impacting care. . Important Contacts Angela Toledo, daughter: [phone] . Code Status: Full Code Plan * FULL CODE * Decision-making: Patient currently does not have insight or judgment related to her medical conditions. She is not expected to regain capacity for healthcare decision-making. Per [place] statutes, in the absence of written advanced directives healthcare proxy decision making falls to the patient's spouse. However, daughter (Angela) states she is designated as the healthcare surrogate decision maker. I have asked her to bring copies of these documents to be placed in the patient's paper chart and scanned into the patient's EMR. * Patient's daughter (Angela) who has requested to speak with someone from hospice in the hopes of taking the patient home to [place]. * Hospice consult pending * Collaborated with RN (Lucy) and porter sample case (Jerome). * Palliative care contact information provided to the patient's daughter. * Symptom management: = Encephalopathy: Patient with a known history of CVA and dementia. Recently diagnosed with diffuse B-cell lymphoma. Patient was started on dexamethasone 4 mg IV every 6 hours. MRI of the brain on 07/15/17 revealed a left basal ganglia mass with moderate associated vasogenic edema; mild-moderate hemispheric mass-effect. 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 = Pain: Multifactoral. Patient was recently diagnosed with B cell lymphoma s /p ventriculoperitoneal shunt placement 2/2 obstructive hydrocephaly. PRN Morphine and [facility] are available every 2 hours. 24 hour PRN Requirements equal IV morphine 4 mg 1, IV morphine 2 mg 1. Palliative care will monitor PRN requirements and make recommendations as appropriate. * Palliative care will continue to follow this patient throughout her hospitalization to establish trust, assist with symptom management and clarification of medical treatment goals. . . Thank you for the opportunity to participate in the care of Ms. Sun. Gena Roach August 20, 2017 11:53
--- NOTE | 2017-08-20 12:59 | RADRPT ---
EXAM DATE: 08/20/2017 12:54 PM EDT AGE/SEX: 62 years / Female INDICATIONS: Upper left abdominal pain. CLINICAL DATA: This is the patient's subsequent encounter. Patient reports that signs and symptoms h ave been present for 2 months and indicates a pain score of 6/10. MEDICAL/SURGICAL HISTORY: . Hypertension. Lymphoma. Cerebrovascular disease. Chemotherapy. . Stent. COMPARISON: No prior exams available for comparison. FINDINGS: The abdominal bowel gas pattern is normal. There is a moderate amount of stool in the colon. No abno rmal dilatation of the large or small bowel is seen. The lung bases are grossly clear. There is a cat heter overlying the right upper quadrant. There are mild degenerative changes of the lumbar spine. No definite calcifications are seen overlying the kidneys.. CONCLUSION: Benign-appearing abdomen. Electronically signed by: Skip Pelaez MD 08/20/2017 12:57 PM EDT
--- NOTE | 2017-08-20 13:47 | HHI.NSPN ---
Note Status Status: Progress Note Interval History Interval History Ms. Sun is a 61-year-old female who is brought to the emergency room at [facility] for increasing confusion, slurred speech, and right-sided weakness. Work up showed a basal ganglia mass with midline shift of 6.8 mm. She underwent stereotactic biopsy of left basal ganglia mass on 07/17. Final pathology reports B cell lymphoma. She was undergoing treatments with oncology. Unfortunately she developed altered mental status, and follow- up CT brain showed evidence of obstructive hydrocephalus. She underwent placement of a ventriculoperitoneal shunt on 08/18/2017. 08/19: Awake, smiling. Patient denies headaches. Appears more alert today. The daughter reports patient has shown improvement following shunt placement yesterday. No other acute events overnight. 08/20: doing well, no acute events overnight. Labs, Micro, & Vital Signs Results Date Time Temp Pulse Resp B/P (MAP) Pulse Ox O2 Delivery O2 Flow Rate FiO2 08/20/17 12:00 62 08/20/17 11:39 97 Nasal Cannula 2.00 08/20/17 10:00 55 08/20/17 08:00 98.6 71 26 123/66 (85) 95 08/20/17 08:00 71 08/20/17 04:00 60 08/20/17 04:00 98.5 60 16 135/63 (87) 98 08/20/17 02:00 62 08/20/17 00:00 67 08/20/17 00:00 99.4 67 18 153/60 (91) 94 08/19/17 22:00 63 08/19/17 20:00 99.4 61 16 154/71 (98) 97 08/19/17 20:00 61 08/19/17 18:00 60 08/19/17 16:00 98.8 58 20 140/66 (90) 99 08/19/17 16:00 58 08/19/17 14:00 64 08/21/17 06:59 Intake Total 1480 ml Output Total 650 ml Balance 830 ml Constitutional Vital Signs Date Time Temp Pulse Resp B/P (MAP) Pulse Ox O2 Delivery O2 Flow Rate FiO2 08/20/17 12:00 62 08/20/17 11:39 97 Nasal Cannula 2.00 08/20/17 10:00 55 08/20/17 08:00 98.6 71 26 123/66 (85) 95 08/20/17 08:00 71 08/20/17 04:00 60 08/20/17 04:00 98.5 60 16 135/63 (87) 98 08/20/17 02:00 62 08/20/17 00:00 67 08/20/17 00:00 99.4 67 18 153/60 (91) 94 08/19/17 22:00 63 08/19/17 20:00 99.4 61 16 154/71 (98) 97 08/19/17 20:00 61 08/19/17 18:00 60 08/19/17 16:00 98.8 58 20 140/66 (90) 99 08/19/17 16:00 58 08/19/17 14:00 64 08/21/17 06:59 Intake Total 1480 ml Output Total 650 ml Balance 830 ml Review of Systems Constitutional: DENIES: Fever, Chills Respiratory: DENIES: Shortness of breath Cardiovascular: DENIES: Chest pain Neurologic: COMPLAINS OF: Localized weakness, DENIES: Seizures Physical Exam CONSTITUTIONAL: no apparent distress. HEENT: Head wrapped in surgical dressing. Wound is clean and dry. Nonicteric sclera. MUSCULOSKELETAL: No obvious deformities to extremities, no clubbing. Moves extremities with right hemiparesis. NEUROLOGICAL: Awake & alert. Oriented to name. Slightly converses in Georgian. Follows some simple commands in Georgian. CN: pupils equal. Right supranuclear palsy. Medications Current Medications Current Medications Medications (Trade) Dose Ordered Sig/Thaddeus Route PRN Reason Start Time Stop Time Status Last Admin Dose Admin Naloxone HCl (Narcan Inj) 0.4 mg UNSCH PRN IV PUSH SEE LABEL COMMENTS 07/14/17 22:15 Senna/Docusate Sodium (Maddy-Colace) 1 tab BID PO 07/15/17 09:00 08/20/17 09:01 Magnesium Hydroxide (Milk Of Magnesia Liq) 30 ml Q12H PRN PO Mild constipation 07/14/17 22:15 08/18/17 08:41 Sennosides (Senokot) 17.2 mg Q12H PRN PO Moderate constipation 07/14/17 22:15 08/15/17 11:57 Bisacodyl (Dulcolax Supp) 10 mg DAILY PRN RECTAL SEVERE CONSITIPATION/ IF NPO 07/14/17 22:15 08/07/17 22:05 Lactulose (Lactulose Liq) 30 ml DAILY PRN PO SEVERE CONSITIPATION/ IF PO 07/14/17 22:15 08/02/17 09:39 Albuterol Sulfate (Albuterol Neb) 2.5 mg Q4HR NEB PRN NEB sob/wheezing 07/14/17 22:30 08/19/17 03:46 Allopurinol (Zyloprim) 100 mg BID PO 07/15/17 09:00 08/20/17 09:02 Atorvastatin Calcium (Lipitor) 40 mg HS PO 07/15/17 21:00 08/19/17 20:43 Citalopram Hydrobromide (CeleXA) 20 mg DAILY PO 07/15/17 09:00 08/20/17 09:02 Levothyroxine Sodium (Synthroid) 150 mcg DAILY@0700 PO 07/15/17 07:00 08/20/17 07:32 Quetiapine Fumarate (SEROquel) 25 mg HS PO 07/15/17 21:00 08/19/17 20:44 Lorazepam (Ativan Inj) 2 mg Q10M PRN IV PUSH SEE LABEL COMMENTS 07/15/17 01:45 Chlorhexidine Gluconate (Peridex 0.12% Liq) 15 ml BID@08,20 MT 07/16/17 20:00 08/19/17 20:45 Miscellaneous Information 1 [id number] XX 07/16/17 13:30 Chlorhexidine Gluconate (Chlorhexidine 2% Cloth) Taper DAILY@04 TOP 07/17/17 04:00 07/13/18 03:59 07/29/17 04:00 Chlorhexidine Gluconate (Chlorhexidine 2% Cloth) 3 pack UNSCH PRN TOP HYGIENIC CARE 07/16/17 13:30 Heparin Sodium (Porcine) (Heparin Central Flush) See Protocol DAILY IV FLUSH 07/17/17 09:00 08/16/17 08:19 Heparin Sodium (Porcine) (Heparin Central Flush) See Protocol UNSCH PRN IV FLUSH SEE PROTOCOL TABLE 07/16/17 19:30 08/09/17 05:52 Sodium Chloride (NS Flush) UNSCH PRN IV FLUSH SEE PROTOCOL TABLE 07/16/17 19:30 08/12/17 11:34 Sodium Chloride (NS Flush) See Protocol UNSCH PRN IV FLUSH FLUSH AFTER USING IV ACCESS 07/16/17 19:30 08/06/17 10:29 Sodium Chloride (NS Flush) SEE PROTOCOL UNSCH PRN IV FLUSH SEE PROTOCOL TABLE 07/16/17 19:30 Docusate Sodium (Colace) 100 mg BID PO 07/17/17 21:00 08/20/17 09:02 Ondansetron HCl (Zofran Inj) 4 mg Q6H PRN IV PUSH NAUSEA OR VOMITING 07/17/17 10:45 08/09/17 06:03 Calcium Gluconate (Calcium Gluconate Inj) 1 gm UNSCH PRN IV SEE LABEL COMMENTS 07/17/17 10:45 Phenytoin (Dilantin) 100 mg Q8HR PO 07/22/17 14:00 Future Hold 07/25/17 13:35 Ferrous Sulfate (Ferrous Sulfate) 325 mg DAILY PO 07/24/17 09:00 08/20/17 09:03 Terbutaline Sulfate (Brethine Inj) 1 mg UNSCH PRN SQ For Extravasation 07/25/17 16:30 Levetriacetam (Keppra) 1,000 mg Q12HR PO 08/02/17 21:00 08/20/17 09:02 Famotidine (Pepcid) 10 mg BID PO 08/11/17 09:00 08/20/17 09:03 Miscellaneous (Pill Splitter) 1 ea UNSCH PRN OTHER SEE LABEL COMMENTS 08/10/17 15:15 Leucovorin Calcium 100 mg/ Sodium Chloride 50 ml @ 400 mls/hr Q6H IV 08/14/17 09:00 08/20/17 09:01 Phenytoin (Dilantin) 100 mg Q8H PO 08/15/17 01:00 08/20/17 09:01 Sodium Chloride 1,000 ml @ 42 mls/hr [id number] IV 08/17/17 15:00 08/19/17 20:50 Dexamethasone Sodium Phosphate (Decadron Inj) 4 mg Q6H IV 08/17/17 20:00 08/20/17 08:58 Potassium Chloride/Sodium Chloride 1,000 ml @ 100 mls/hr Q10H IV 08/18/17 16:44 08/20/17 09:00 Pantoprazole Sodium (Protonix Inj) 40 mg DAILY IVP 08/19/17 09:00 08/20/17 09:01 Acetaminophen/ Hydrocodone Bitart (Cammal 10-325 Mg) 1 tab Q4H PRN PO PAIN SCALE 1 TO 5 08/18/17 16:45 Acetaminophen/ Hydrocodone Bitart (Cammal 10-325 Mg) 2 tab Q4H PRN PO PAIN SCALE 6 TO 10 08/18/17 16:45 Morphine Sulfate (Morphine Inj) 2 mg Q2H PRN IV PUSH PAIN SCALE 1 TO 6 08/18/17 16:45 08/19/17 00:45 Morphine Sulfate (Morphine Inj) 4 mg Q2H PRN IV PUSH PAIN SCALE 7 TO 10 08/18/17 16:45 08/18/17 18:41 Acetaminophen (Tylenol) 650 mg Q4H PRN PO TEMPERATURE > 101.5 F 08/18/17 16:45 Albuterol Sulfate (Albuterol Concentrated Neb) 2.5 mg Q4HR NEB NEB 08/18/17 20:00 08/20/17 11:39 Medical Decision Making MDM Remarks 61-year-old female Left basal ganglia RETORT FIRER lymphoma, status post stereotactic image guided biopsy, final pathology reports B-cell lymphoma Obstructive hydrocephalus, status post placement of ventriculoperitoneal shunt , improving mental status Plan Plan Remarks Doing well Continue neuro checks Neuro stable Stable to transfer out of [facility] from neurosurgical standpoint Clear to restart therapy, clear to mobilize out of bed with assistance Dressing changes jose rafael saunders August 28 Ruby Renteria August 20, 2017 13:46
--- NOTE | 2017-08-20 16:48 | HHI.NPPN ---
Subjective Renal Failure: Acute History of Present Illness 62-year-old female with past medical history of hypertension, chronic obstructive pulmonary disease, hypothyroidism, history of non-Hodgkin's lymphoma, hyperlipidemia, cerebrovascular accident, was admitted on 07/14/2017 because of brain mass and possibility of subacute hemorrhage. Additional Remarks Resting comfortably. Increased fatigue and sleepiness today. (Marisel Durham) Review of Systems General Constitutional: Fatigue (Marisel Durham) Respiratory Respiratory Remarks Denies any SOB (Marisel Durham) Cardiovascular Cardiac Remarks Denies CP (Marisel Durham) Gastrointestinal GI Remarks Denies abdominal pain (Marisel Durham) Objective Data Data Vital Signs Date Time Temp Pulse Resp B/P (MAP) Pulse Ox O2 Delivery O2 Flow Rate FiO2 08/20/17 12:00 62 08/20/17 11:39 97 Nasal Cannula 2.00 08/20/17 10:00 55 08/20/17 08:00 98.6 71 26 123/66 (85) 95 08/20/17 08:00 71 08/20/17 04:00 60 08/20/17 04:00 98.5 60 16 135/63 (87) 98 08/20/17 02:00 62 08/20/17 00:00 67 08/20/17 00:00 99.4 67 18 153/60 (91) 94 08/19/17 22:00 63 08/19/17 20:00 99.4 61 16 154/71 (98) 97 08/19/17 20:00 61 08/19/17 18:00 60 (Marisel Durham) -: 08/20/17 0415 08/20/17 0415 Imaging Last Impressions Abdomen X-Ray 08/20/17 0000 Signed Impressions: CONCLUSION: Benign-appearing abdomen. Head CT 08/19/17 0000 Signed Impressions: CONCLUSION: 1. Interval placement of ventricular shunt catheter with tip in the right late ral ventricle and no hemorrhage. 2. Stable high density mass with surrounding edema Chest X-Ray 08/13/17 0000 Signed Impressions: Service Date/Time: July 12:03 - CONCLUSION: 1. Improved aeration at the lung bases, presumably improved atelectasis. 2. Otherwise, no acute abnormality or significant interval change. Frankie Dao MD Renal Ultrasound 08/10/17 Signed Impressions: Service Date/Time: Thursday, August 10, 2017 11:22 - CONCLUSION: 1. Hypoechoic lesion just superior to the right kidney likely represents right adrenal lesion. 2. Bilateral renal cysts. Orlando Tavarez MD Thyroid Ultrasound 07/30/17 Signed Impressions: Service Date/Time: July 08:47 - CONCLUSION: 1. Diffusely heterogeneous multinodular thyroid gland. 2. 1.7 cm solid nodule in the inferior right lobe and 2 mixed nodules in the mid and inferior left pole meet criteria for fine needle aspiration. Frankie Dao MD Bone Biopsy CT 07/28/17 Signed Impressions: Service Date/Time: Friday, July 28, 2017 13:46 - CONCLUSION: 1. Uncomplicated CT guided bone marrow aspirate. 2. Uncomplicated CT guided bone marrow biopsy. Israel Garvin MD Lumbar Puncture Fluoroscopy 07/27/17 Signed Impressions: Service Date/Time: Thursday, July 27, 2017 15:37 - CONCLUSION: Uncomplicated fluoroscopically guided lumbar puncture with pressures as above. Kwasi Wilkins MD Chest CT 07/26/17 Signed Impressions: Service Date/Time: Thursday, July 27, 2017 15:56 - CONCLUSION: 1. Atelectasis at the lung bases but no lung mass or adenopathy. No effusions. 2. Numerous bilateral thyroid nodules measuring up to about 1.5 cm in diameter. See abdomen CT for findings below the diaphragm. Job Barrera MD Abdomen/Pelvis CT 07/26/17 Signed Impressions: Service Date/Time: Thursday, July 27, 2017 15:56 - CONCLUSION: 1. No acute findings abdomen pelvic CT. No definite evidence for metastatic disease. 2.5 cm likely right adrenal adenoma. 2. Mild fatty liver. Job Barrera MD Brain MRI 07/15/17 Signed Impressions: Service Date/Time: Saturday, July 15, 2017 15:42 - CONCLUSION: Left basal ganglia mass with moderate associated vasogenic edema. Mild-moderate hemispheric mass effect. Serpiginous enhancement in the contralateral right mid to high convexity frontal region. Israel Ruelas MD (Marisel Durham ASSOCIATE MATERIAL HANDLER) Physical Exam General Appearance: No Acute Distress, Comfortable (Marisel Durham ASSOCIATE MATERIAL HANDLER) Eyes Eye Exam: Pupils Equal (Marisel DurhamP) Throat Throat Exam: Oral Mucosa [place] & Moist (Marisel Durham ASSOCIATE MATERIAL HANDLER) Neck Neck Exam: Neck Supple, Trachea Midline (Marisel Durham ASSOCIATE MATERIAL HANDLER) Pulmonary Resp Exam: Clear Bilaterally, Breath Sounds Equal, No Distress, Decreased Bases (Marisel Durham ASSOCIATE MATERIAL HANDLER) Cardiology CV Exam: Regular, Normal Sinus Rhythm (Marisel Durham ASSOCIATE MATERIAL HANDLER) Gastrointestinal/Abdomen GI Exam: Soft, Non-Tender, Bowel Sounds Present (Marisel Durham) Extremeties Extremities Exam: Trace Edema (Marisel DurhamP) Neurologic Neuro Exam: Alert, Awake, Oriented (Marisel DurhamP) Psychiatric Psych Exam: Appropriate Responses (Marisel Durham) Assessment/Plan Assessment Summary: JJ/Acute Renal Failure Problem List: (1) Hyperlipidemia ICD Codes: E78.5 - Hyperlipidemia, unspecified (2) Seizure ICD Codes: R56.9 - Unspecified convulsions (3) Hypertension ICD Codes: I10 - Essential (primary) hypertension (4) B-cell lymphoma ICD Codes: C85.10 - Unspecified B-cell lymphoma, unspecified site (5) Brain mass ICD Codes: G93.9 - Disorder of brain, unspecified (6) Renal insufficiency ICD Codes: N28.9 - Disorder of kidney and ureter, unspecified Plan: Patient developed JJ, Most likely has ATN due to Chemotherapy. Remains non oliguric Renal U/S noted. Urine Sodium is normal, not low. Urine Eosinophils negative. Creatinine continues to improve at 2.62- > 2.59 -> 2.41 ->2.24 ->1.91 ->1.70 UOP at 1 L/24 hours IVF continue with gentle hydration S/P [employer] SET UP PERSON shunt on 08/18 Continue to encourage PO fluid intake. Follow the urine out put and BMP. Patient seen and examined, agree with above. Creatinine is improving. Plan Patient developed JJ, Most likely has ATN due to Chemotherapy. Remains non oliguric Renal U/S noted. Urine Sodium is normal, not low. Urine Eosinophils negative. Creatinine continues to improve at 1.43 today Non oliguric S/P [employer]AN[employer]ET SET UP PERSON shunt on 08/18 Continue to encourage PO fluid intake. Follow the urine out put and BMP Family leaning towards comfort care only. (Marisel Durham) Plan Patient seen and examine, agree with above. Creatinine continue to improve. Family decided to go for Hospice. (Lisandro Winters MD) Problem Qualifiers (1) B-cell lymphoma: Qualified Codes: C85.10 - Unspecified B-cell lymphoma, unspecified site Marisel Durham August 20, 2017 16:48 Lisandro Winters MD August 21, 2017 00:24
[2017-08-20] MEDS: SODIUM CHLOR 0.9% 1000 ML INJ 1,000 ML IV SCH (20:00)
[2017-08-20] MEDS: QUEtiapine FUMARATE 25 MG TAB PO SCH (22:07)
[2017-08-20] MEDS: ATORVASTATIN 40 MG TAB PO SCH (22:08)
[2017-08-21] VITALS (9 sets, daily range): BP systolic 133–160; BP diastolic 58–82; PULSE 55–66; RESP 14–25; TEMP 98.2–98.4; O2SAT 97–100
[2017-08-21] MEDS: RESP: ALBUTEROL CONC 2.5 MG/0.5 ML NEB NEB SCH ×5 (00:20→15:41)
[2017-08-21] MEDS: PHENYTOIN SODIUM 100 MG CAP PO SCH ×2 (01:38→08:15)
[2017-08-21] MEDS: DEXAMETHASONE SOD PHOS 4 MG/ML VIAL IV SCH ×2 (02:23→08:15)
[2017-08-21] MEDS: SODIUM CHLORIDE 0.9% IV SCH ×2 (02:23→08:22)
[2017-08-21] MEDS: LEUCOVORIN IV SCH ×2 (02:23→08:22)
[2017-08-21] MEDS: CHLORHEXIDINE GLUCONATE 2 % 1 PACK (2 CLOTHS) TOP SCH (04:00)
[2017-08-21] MEDS: NS + KCL 20 MEQ INJ 1,000 ML IV SCH (04:17)
[2017-08-21 06:43] LABS: HEMATOCRIT 22.9 % (35.0-46.0); HEMOGLOBIN 7.5 GM/DL (11.6-15.3); MEAN CELL VOLUME 98.9 FL (80.0-100.0); MEAN CORPUSCULAR HEMOGLOBIN 32.5 PG (27.0-34.0); MEAN CORPUSCULAR HGB CONC 32.9 % (32.0-36.0); MEAN PLATELET VOLUME 7.3 FL (7.0-11.0); PLATELET COUNT 321 TH/MM3 (150-450); RED BLOOD COUNT 2.32 MIL/MM3 (4.00-5.30); RED CELL DISTRIBUTION WIDTH 14.7 % (11.6-17.2)
[2017-08-21] MEDS: LEVOTHYROXINE SODIUM 150 MCG TAB PO SCH (06:46)
[2017-08-21 07:13] LABS: BICARBONATE 27.4 MEQ/L (21.0-32.0); CALCIUM 8.4 MG/DL (8.5-10.1); CREATININE 1.02 MG/DL (0.50-1.00)
[2017-08-21] MEDS: CHLORHEXIDINE 0.12% (ORAL KIT) 15 ML CUP MT SCH (08:00)
[2017-08-21] MEDS: FAMOTIDINE 20 MG TAB PO SCH (08:14)
[2017-08-21] MEDS: CITALOPRAM HYDROBROMIDE 20 MG TAB PO SCH (08:14)
[2017-08-21] MEDS: FERROUS SULFATE 325 MG (65 MG ELEMENTAL IRON) TAB PO SCH (08:14)
[2017-08-21] MEDS: ALLOPURINOL 100 MG TAB PO SCH (08:14)
[2017-08-21] MEDS: DOCUSATE SODIUM 50 MG/SENNA 8.6 MG TAB PO SCH (08:14)
[2017-08-21] MEDS: levETIRAcetam 500 MG TAB PO SCH (08:14)
[2017-08-21] MEDS: PANTOPRAZOLE SODIUM 40 MG VIAL IVP SCH (08:16)
[2017-08-21] MEDS: DOCUSATE SODIUM 100 MG CAP PO SCH (08:16)
--- NOTE | 2017-08-21 09:38 | HHI.NPPN ---
Subjective Renal Failure: Acute History of Present Illness 62-year-old female with past medical history of hypertension, chronic obstructive pulmonary disease, hypothyroidism, history of non-Hodgkin's lymphoma, hyperlipidemia, cerebrovascular accident, was admitted on 07/14/2017 because of brain mass and possibility of subacute hemorrhage. Additional Remarks Resting comfortably. No complaints. (Marisel Durham) Review of Systems General Constitutional: Fatigue (Marisel Durham) Respiratory Respiratory Remarks Denies any SOB (Marisel Durham) Cardiovascular Cardiac Remarks Denies CP (Marisel Durham) Gastrointestinal GI Remarks Denies abdominal pain (Marisel uDrham) Objective Data Data Vital Signs Date Time Temp Pulse Resp B/P (MAP) Pulse Ox O2 Delivery O2 Flow Rate FiO2 08/21/17 08:52 100 Nasal Cannula 2.00 08/21/17 06:00 57 08/21/17 04:00 98.4 63 14 144/75 (98) 97 08/21/17 04:00 63 08/21/17 02:00 62 08/21/17 00:00 56 08/21/17 00:00 98.3 56 14 133/58 (83) 97 08/20/17 22:00 72 08/20/17 20:37 95 Nasal Cannula 2.00 08/20/17 20:00 98.3 54 16 161/74 (103) 96 08/20/17 20:00 54 08/20/17 18:00 52 08/20/17 16:00 98.4 64 22 128/61 (83) 96 08/20/17 16:00 64 08/20/17 14:00 56 08/20/17 12:00 97.9 64 29 121/63 (82) 93 08/20/17 12:00 62 08/20/17 11:39 97 Nasal Cannula 2.00 08/20/17 10:00 55 (Marisel Durham) -: 08/21/17 0603 08/21/17 0603 Imaging Last Impressions Abdomen X-Ray 08/20/17 0000 Signed Impressions: CONCLUSION: Benign-appearing abdomen. Head CT 08/19/17 0000 Signed Impressions: CONCLUSION: 1. Interval placement of ventricular shunt catheter with tip in the right late ral ventricle and no hemorrhage. 2. Stable high density mass with surrounding edema Chest X-Ray 08/13/17 Signed Impressions: Service Date/Time: July 12:03 - CONCLUSION: 1. Improved aeration at the lung bases, presumably improved atelectasis. 2. Otherwise, no acute abnormality or significant interval change. Frankie Dao MD Renal Ultrasound 08/10/17 0000 Signed Impressions: Service Date/Time: Thursday, August 10, 2017 11:22 - CONCLUSION: 1. Hypoechoic lesion just superior to the right kidney likely represents right adrenal lesion. 2. Bilateral renal cysts. Orlando Tavarez MD Thyroid Ultrasound 07/30/17 Signed Impressions: Service Date/Time: July 08:47 - CONCLUSION: 1. Diffusely heterogeneous multinodular thyroid gland. 2. 1.7 cm solid nodule in the inferior right lobe and 2 mixed nodules in the mid and inferior left pole meet criteria for fine needle aspiration. Frankie Dao MD Bone Biopsy CT 07/28/17 0000 Signed Impressions: Service Date/Time: Friday, July 28, 2017 13:46 - CONCLUSION: 1. Uncomplicated CT guided bone marrow aspirate. 2. Uncomplicated CT guided bone marrow biopsy. Israel Garvin MD Lumbar Puncture Fluoroscopy 07/27/17 0000 Signed Impressions: Service Date/Time: Thursday, July 27, 2017 15:37 - CONCLUSION: Uncomplicated fluoroscopically guided lumbar puncture with pressures as above. Kwasi Wilkins MD Chest CT 07/26/17 0000 Signed Impressions: Service Date/Time: Thursday, July 27, 2017 15:56 - CONCLUSION: 1. Atelectasis at the lung bases but no lung mass or adenopathy. No effusions. 2. Numerous bilateral thyroid nodules measuring up to about 1.5 cm in diameter. See abdomen CT for findings below the diaphragm. Job Barrera MD Abdomen/Pelvis CT 07/26/17 0000 Signed Impressions: Service Date/Time: Thursday, July 27, 2017 15:56 - CONCLUSION: 1. No acute findings abdomen pelvic CT. No definite evidence for metastatic disease. 2.5 cm likely right adrenal adenoma. 2. Mild fatty liver. Job Barrera MD Brain MRI 07/15/17 0000 Signed Impressions: Service Date/Time: Saturday, July 15, 2017 15:42 - CONCLUSION: Left basal ganglia mass with moderate associated vasogenic edema. Mild-moderate hemispheric mass effect. Serpiginous enhancement in the contralateral right mid to high convexity frontal region. Israel Ruelas MD (Marisel Durham. BRIM GREASER OPERATOR) Physical Exam General Appearance: No Acute Distress, Comfortable (GellerMarisel lindsey. BRIM GREASER OPERATOR) Eyes Eye Exam: Pupils Equal (HedylerMarisel lindsey. BRIM GREASER OPERATOR) Throat Throat Exam: Oral Mucosa [place] & Moist (HedylerJody lindseyne M. BRIM GREASER OPERATOR) Neck Neck Exam: Neck Supple, Trachea Midline (HedyleroJdy lindseyne M. BRIM GREASER OPERATOR) Pulmonary Resp Exam: Clear Bilaterally, Breath Sounds Equal, No Distress, Decreased Bases (GellerJody lindseyne M. BRIM GREASER OPERATOR) Cardiology CV Exam: Regular, Normal Sinus Rhythm (Jody Durhamne M. BRIM GREASER OPERATOR) Gastrointestinal/Abdomen GI Exam: Soft, Non-Tender, Bowel Sounds Present (Marisel Durham. BRIM GREASER OPERATOR) Extremeties Extremities Exam: Trace Edema (Marisel Durham M. BRIM GREASER OPERATOR) Neurologic Neuro Exam: Alert, Awake, Oriented (Marisel Durham. BRIM GREASER OPERATOR) Psychiatric Psych Exam: Appropriate Responses (Marisel DurhamP) Assessment/Plan Assessment Summary: JJ/Acute Renal Failure Problem List: (1) Hyperlipidemia ICD Codes: E78.5 - Hyperlipidemia, unspecified (2) Seizure ICD Codes: R56.9 - Unspecified convulsions (3) Hypertension ICD Codes: I10 - Essential (primary) hypertension (4) B-cell lymphoma ICD Codes: C85.10 - Unspecified B-cell lymphoma, unspecified site (5) Brain mass ICD Codes: G93.9 - Disorder of brain, unspecified (6) Renal insufficiency ICD Codes: N28.9 - Disorder of kidney and ureter, unspecified Plan: Patient developed JJ, Most likely has ATN due to Chemotherapy. Remains non oliguric Renal U/S noted. Urine Sodium is normal, not low. Urine Eosinophils negative. Creatinine continues to improve at 2.62- > 2.59 -> 2.41 ->2.24 ->1.91 ->1.70 UOP at 1 L/24 hours IVF continue with gentle hydration S/P CLINICAL DENTAL TECHNICIAN shunt on 08/18 Continue to encourage PO fluid intake. Follow the urine out put and BMP. Patient seen and examined, agree with above. Creatinine is improving. Plan Patient developed JJ, Most likely has ATN due to Chemotherapy. Remains non oliguric Renal U/S noted. Urine Sodium is normal, not low. Urine Eosinophils negative. Creatinine is normal now at 1.02 Continue to encourage PO fluid intake. Nephrology will sign off with creatinine returning to normal. Reconsult if needed. (Marisel Durham) Problem List: (1) Hyperlipidemia ICD Codes: E78.5 - Hyperlipidemia, unspecified (2) Seizure ICD Codes: R56.9 - Unspecified convulsions (3) Hypertension ICD Codes: I10 - Essential (primary) hypertension (4) B-cell lymphoma ICD Codes: C85.10 - Unspecified B-cell lymphoma, unspecified site (5) Brain mass ICD Codes: G93.9 - Disorder of brain, unspecified (6) Renal insufficiency ICD Codes: N28.9 - Disorder of kidney and ureter, unspecified Plan: Patient developed JJ, Most likely has ATN due to Chemotherapy. Remains non oliguric Renal U/S noted. Urine Sodium is normal, not low. Urine Eosinophils negative. Creatinine continues to improve at 2.62- > 2.59 -> 2.41 ->2.24 ->1.91 ->1.70 UOP at 1 L/24 hours IVF continue with gentle hydration S/P CLINICAL DENTAL TECHNICIAN shunt on 08/18 Continue to encourage PO fluid intake. Follow the urine out put and BMP. Patient seen and examined, agree with above. Creatinine is improving.patient to go for Hospice. (Lisandro Winters MD) Problem Qualifiers (1) B-cell lymphoma: Qualified Codes: C85.10 - Unspecified B-cell lymphoma, unspecified site Marisel Durham August 21, 2017 09:38 Lisandro Winters MD August 21, 2017 23:56
[2017-08-21] MEDS: MORPHINE SULFATE 4 MG/ML INJ IV PUSH PRN (09:39)
--- NOTE | 2017-08-21 10:02 | HHI.NSPN ---
Note Status Status: Progress Note Interval History Interval History Ms. Sun is a 61-year-old female who is brought to the emergency room at [facility] for increasing confusion, slurred speech, and right-sided weakness. Work up showed a basal ganglia mass with midline shift of 6.8 mm. She underwent stereotactic biopsy of left basal ganglia mass on 07/17. Final pathology reports B cell lymphoma. She was undergoing treatments with oncology. Unfortunately she developed altered mental status, and follow- up CT brain showed evidence of obstructive hydrocephalus. She underwent placement of a ventriculoperitoneal shunt on 08/18/2017. 08/19: Awake, smiling. Patient denies headaches. Appears more alert today. The daughter reports patient has shown improvement following shunt placement yesterday. No other acute events overnight. 08/20: doing well, no acute events overnight. 08/21: Alert, smiling, receiving breathing treatment. follows simple commands in Dominican, stable right hemiparesis. Labs, Micro, & Vital Signs Results Date Time Temp Pulse Resp B/P (MAP) Pulse Ox O2 Delivery O2 Flow Rate FiO2 08/21/17 08:52 100 Nasal Cannula 2.00 08/21/17 06:00 57 08/21/17 04:00 98.4 63 14 144/75 (98) 97 08/21/17 04:00 63 08/21/17 02:00 62 08/21/17 00:00 56 08/21/17 00:00 98.3 56 14 133/58 (83) 97 08/20/17 22:00 72 08/20/17 20:37 95 Nasal Cannula 2.00 08/20/17 20:00 98.3 54 16 161/74 (103) 96 08/20/17 20:00 54 08/20/17 18:00 52 08/20/17 16:00 98.4 64 22 128/61 (83) 96 08/20/17 16:00 64 08/20/17 14:00 56 08/20/17 12:00 97.9 64 29 121/63 (82) 93 5/24/18 12:00 62 08/20/17 11:39 97 Nasal Cannula 2.00 Constitutional Vital Signs Date Time Temp Pulse Resp B/P (MAP) Pulse Ox O2 Delivery O2 Flow Rate FiO2 08/21/17 08:52 100 Nasal Cannula 2.00 08/21/17 06:00 57 08/21/17 04:00 98.4 63 14 144/75 (98) 97 08/21/17 04:00 63 08/21/17 02:00 62 08/21/17 00:00 56 08/21/17 00:00 98.3 56 14 133/58 (83) 97 08/20/17 22:00 72 08/20/17 20:37 95 Nasal Cannula 2.00 08/20/17 20:00 98.3 54 16 161/74 (103) 96 08/20/17 20:00 54 08/20/17 18:00 52 08/20/17 16:00 98.4 64 22 128/61 (83) 96 08/20/17 16:00 64 08/20/17 14:00 56 08/20/17 12:00 97.9 64 29 121/63 (82) 93 08/20/17 12:00 62 08/20/17 11:39 97 Nasal Cannula 2.00 Physical Exam CONSTITUTIONAL: no apparent distress. HEENT: Head wrapped in surgical dressing. Wound is clean and dry. Nonicteric sclera. MUSCULOSKELETAL: No obvious deformities to extremities, no clubbing. Moves extremities with right hemiparesis. NEUROLOGICAL: Awake & alert. Oriented to name. Slightly converses in Dominican. Follows some simple commands in Dominican. CN: pupils equal. Right supranuclear palsy. Medications Current Medications Current Medications Medications (Trade) Dose Ordered Sig/Thaddeus Route PRN Reason Start Time Stop Time Status Last Admin Dose Admin Naloxone HCl (Narcan Inj) 0.4 mg UNSCH PRN IV PUSH SEE LABEL COMMENTS 07/14/17 22:15 Senna/Docusate Sodium (Maddy-Colace) 1 tab BID PO 07/15/17 09:00 08/21/17 08:14 Magnesium Hydroxide (Milk Of Magnesia Liq) 30 ml Q12H PRN PO Mild constipation 07/14/17 22:15 08/18/17 08:41 Sennosides (Senokot) 17.2 mg Q12H PRN PO Moderate constipation 07/14/17 22:15 08/15/17 11:57 Bisacodyl (Dulcolax Supp) 10 mg DAILY PRN RECTAL SEVERE CONSITIPATION/ IF NPO 07/14/17 22:15 08/07/17 22:05 Lactulose (Lactulose Liq) 30 ml DAILY PRN PO SEVERE CONSITIPATION/ IF PO 07/14/17 22:15 08/02/17 09:39 Albuterol Sulfate (Albuterol Neb) 2.5 mg Q4HR NEB PRN NEB sob/wheezing 07/14/17 22:30 08/19/17 03:46 Allopurinol (Zyloprim) 100 mg BID PO 07/15/17 09:00 08/21/17 08:14 Atorvastatin Calcium (Lipitor) 40 mg HS PO 07/15/17 21:00 08/20/17 22:08 Citalopram Hydrobromide (CeleXA) 20 mg DAILY PO 07/15/17 09:00 08/21/17 08:14 Levothyroxine Sodium (Synthroid) 150 mcg DAILY@0700 PO 07/15/17 07:00 08/21/17 06:46 Quetiapine Fumarate (SEROquel) 25 mg HS PO 07/15/17 21:00 08/20/17 22:07 Lorazepam (Ativan Inj) 2 mg Q10M PRN IV PUSH SEE LABEL COMMENTS 07/15/17 01:45 Chlorhexidine Gluconate (Peridex 0.12% Liq) 15 ml BID@08,20 MT 07/16/17 20:00 08/20/17 22:04 Miscellaneous Information 1 [id number] XX 07/16/17 13:30 Chlorhexidine Gluconate (Chlorhexidine 2% Cloth) Taper DAILY@04 TOP 07/17/17 04:00 07/13/18 03:59 08/21/17 04:00 Chlorhexidine Gluconate (Chlorhexidine 2% Cloth) 3 pack UNSCH PRN TOP HYGIENIC CARE 07/16/17 13:30 Heparin Sodium (Porcine) (Heparin Central Flush) See Protocol DAILY IV FLUSH 07/17/17 09:00 08/21/17 08:15 Heparin Sodium (Porcine) (Heparin Central Flush) See Protocol UNSCH PRN IV FLUSH SEE PROTOCOL TABLE 07/16/17 19:30 5/13/18 05:52 Sodium Chloride (NS Flush) UNSCH PRN IV FLUSH SEE PROTOCOL TABLE 07/16/17 19:30 08/12/17 11:34 Sodium Chloride (NS Flush) See Protocol UNSCH PRN IV FLUSH FLUSH AFTER USING IV ACCESS 07/16/17 19:30 08/06/17 10:29 Sodium Chloride (NS Flush) SEE PROTOCOL UNSCH PRN IV FLUSH SEE PROTOCOL TABLE 07/16/17 19:30 Docusate Sodium (Colace) 100 mg BID PO 07/17/17 21:00 08/20/17 22:05 Ondansetron HCl (Zofran Inj) 4 mg Q6H PRN IV PUSH NAUSEA OR VOMITING 07/17/17 10:45 08/09/17 06:03 Calcium Gluconate (Calcium Gluconate Inj) 1 gm UNSCH PRN IV SEE LABEL COMMENTS 07/17/17 10:45 Phenytoin (Dilantin) 100 mg Q8HR PO 07/22/17 14:00 Future Hold 07/25/17 13:35 Ferrous Sulfate (Ferrous Sulfate) 325 mg DAILY PO 07/24/17 09:00 08/21/17 08:14 Terbutaline Sulfate (Brethine Inj) 1 mg UNSCH PRN SQ For Extravasation 07/25/17 16:30 Levetriacetam (Keppra) 1,000 mg Q12HR PO 08/02/17 21:00 08/21/17 08:14 Famotidine (Pepcid) 10 mg BID PO 08/11/17 09:00 08/21/17 08:14 Miscellaneous (Pill Splitter) 1 ea UNSCH PRN OTHER SEE LABEL COMMENTS 08/10/17 15:15 Leucovorin Calcium 100 mg/ Sodium Chloride 50 ml @ 400 mls/hr Q6H IV 08/14/17 09:00 08/21/17 08:22 Phenytoin (Dilantin) 100 mg Q8H PO 08/15/17 01:00 08/21/17 08:15 Sodium Chloride 1,000 ml @ 42 mls/hr [id number] IV 08/17/17 15:00 08/20/17 20:00 Dexamethasone Sodium Phosphate (Decadron Inj) 4 mg Q6H IV 08/17/17 20:00 08/21/17 08:15 Potassium Chloride/Sodium Chloride 1,000 ml @ 100 mls/hr Q10H IV 08/18/17 16:44 08/21/17 04:17 Pantoprazole Sodium (Protonix Inj) 40 mg DAILY IVP 08/19/17 09:00 08/21/17 08:16 Acetaminophen/ Hydrocodone Bitart ([place] 10-325 Mg) 1 tab Q4H PRN PO PAIN SCALE 1 TO 5 08/18/17 16:45 Acetaminophen/ Hydrocodone Bitart ([place] 10-325 Mg) 2 tab Q4H PRN PO PAIN SCALE 6 TO 10 08/18/17 16:45 Morphine Sulfate (Morphine Inj) 2 mg Q2H PRN IV PUSH PAIN SCALE 1 TO 6 08/18/17 16:45 08/19/17 00:45 Morphine Sulfate (Morphine Inj) 4 mg Q2H PRN IV PUSH PAIN SCALE 7 TO 10 08/18/17 16:45 08/21/17 09:39 Acetaminophen (Tylenol) 650 mg Q4H PRN PO TEMPERATURE > 101.5 F 08/18/17 16:45 Albuterol Sulfate (Albuterol Concentrated Neb) 2.5 mg Q4HR NEB NEB 08/18/17 20:00 08/21/17 08:49 Medical Decision Making MDM Remarks 61-year-old female Left basal ganglia ELECTRONICS SCALE TESTER lymphoma, status post stereotactic image guided biopsy, final pathology reports B-cell lymphoma Obstructive hydrocephalus, status post placement of ventriculoperitoneal shunt , improving mental status Plan Plan Remarks Doing well Continue neuro checks Neuro stable Stable to transfer out of [facility] from neurosurgical standpoint Clear to restart therapy, clear to mobilize out of bed with assistance jose rafael saunders 08/28/17 Ruby Renteria August 21, 2017 10:02
[2017-08-21] MEDS ORDERED: hydrALAZINE HCL 20 MG/ML VIAL IV PUSH PRN (11:45)
--- NOTE | 2017-08-21 13:42 | HHI.PR ---
Objective Vitals Vital Signs Date Time Temp Pulse Resp B/P (MAP) Pulse Ox O2 Delivery O2 Flow Rate FiO2 08/21/17 12:00 66 08/21/17 12:00 98.2 66 25 160/82 (108) 100 08/21/17 10:00 63 08/21/17 09:44 20 08/21/17 08:52 100 Nasal Cannula 2.00 08/21/17 08:00 98.4 55 17 160/80 (106) 97 08/21/17 08:00 55 08/21/17 06:00 57 08/21/17 04:00 98.4 63 14 144/75 (98) 97 08/21/17 04:00 63 08/21/17 02:00 62 08/21/17 00:00 56 08/21/17 00:00 98.3 56 14 133/58 (83) 97 08/20/17 22:00 72 08/20/17 20:37 95 Nasal Cannula 2.00 08/20/17 20:00 98.3 54 16 161/74 (103) 96 08/20/17 20:00 54 08/20/17 18:00 52 08/20/17 16:00 98.4 64 22 128/61 (83) 96 08/20/17 16:00 64 08/20/17 14:00 56 I/O 08/20/17 08/20/17 08/20/17 08/21/17 08/21/17 08/21/17 07:00 15:00 23:00 07:00 15:00 23:00 Intake Total 2048 ml 1290 ml 1170 ml Output Total 1250 ml 2200 ml 2150 ml Balance 798 ml -910 ml -980 ml Intake Oral 720 ml 240 ml 120 ml IV Total 1328 ml 1050 ml 1050 ml Output Urine Total 1250 ml 2200 ml 2150 ml # Bowel Movements 0 0 0 Result Diagram: 08/21/1760208/21/17602 Objective Remarks GENERAL: Obese female in no acute distress. CARDIOVASCULAR: Normal rate and regular rhythm without murmurs, gallops, or rubs. RESPIRATORY: Clear to auscultation. Breath sounds equal bilaterally. No wheezes , rales, or rhonchi. GASTROINTESTINAL: Abdomen soft, non-tender, nondistended. Normal active bowel sounds MUSCULOSKELETAL: Extremities without clubbing, cyanosis, or edema. NEURO: Awake and alert. Right LE 3/5, RUE 1/5. Left sided strength is normal. Procedures Procedure: Stereotactic biopsy of Left basal ganglia brain mass A/P Problem List: (1) Brain mass ICD Code: G93.9 - Disorder of brain, unspecified (2) Dementia without behavioral disturbance ICD Code: F03.90 - Unspecified dementia without behavioral disturbance (3) Hypertension ICD Code: I10 - Essential (primary) hypertension (4) Hyperlipidemia ICD Code: E78.5 - Hyperlipidemia, unspecified (5) Seizure ICD Code: R56.9 - Unspecified convulsions Assessment and Plan 61-year-old female with a history of Lymphoma who is brought to the emergency room at [facility] in [place] for increasing confusion, slurred speech, and right-sided weakness. CT of the head was performed and showed a brain mass with midline shift of 6.8 mm with differential including subacute hemorrhage versus neoplastic process. The patient was accepted in transfer by Dr. Barth for neurosurgical evaluation here at [facility] in [place]. Patient underwent biopsy which revealed B cell lymphoma. Oncology following and she was treated with methotrexate. Transferred back to ICU due to worsening clinical status and worsening CT on 08/17. B-cell lymphoma with brain metastasis left basal ganglia mass with vasogenic edema and midline shift status post biopsy. Worsening on 08/17 CT Neurosurgery following. Patient is status post UPPER INSPECTOR shunt placement on 08/18/17. Radiation Oncology consulted. Family declined radiation and considering hospice. Continue IV dexamethasone Continue to follow clinically Neurology following Palliative care to discuss options with family today. They are leaning more towards hospice and comfort care. Cancer related encephalopathy Continue supportive care Hypothyroidism, chronic Continue supplements Follows as outpatient Hypertension Continue baseline treatment Follow blood pressures Adjust treatments as needed Asthma No exacerbation Breathing treatments as needed H/o ischemic CVA with possible seizure activity at the time of the CVA - no seizures since and does not take AEDs Monitor for any seizure activity Continue Keppra PO Cerebyx 100mg Q8 DCd and change to phenytoin PO continue Hyperlipidemia Continue present treatment Follow as an outpatient Bipolar disorder No change to baseline treatments Obstructive sleep apnea CPAP Debility Secondary to brain edema Continue physical therapy DVT prophylaxis GI prophylaxis. Pepcid as patient is on steroids. Bleed risk is present SCDs Discharge Planning Stable to transfer to floor. Akhil Calderón MD August 21, 2017 13:41
--- NOTE | 2017-08-21 14:31 | HHI.DS ---
Discharge Summary Admission Date Jul 14, 2017 at 21:20 Discharge Date: August 21, 2017 Admitting Diagnosis newly discovered brain mass vs subacute hemorrhage . (1) Brain mass ICD Code: G93.9 - Disorder of brain, unspecified (2) Dementia without behavioral disturbance ICD Code: F03.90 - Unspecified dementia without behavioral disturbance (3) Hypertension ICD Code: I10 - Essential (primary) hypertension (4) Hyperlipidemia ICD Code: E78.5 - Hyperlipidemia, unspecified (5) Seizure ICD Code: R56.9 - Unspecified convulsions Procedures Procedure: Stereotactic biopsy of Left basal ganglia brain mass Brief History - From Admission HPI from admission. Ms. Sun is a 61-year-old female who is brought to the emergency room at [facility] in [place] for increasing confusion, slurred speech, and right-sided weakness for four days. CT of the head was performed and showed a brain mass with midline shift of 6.8 mm with differential including subacute hemorrhage versus neoplastic process. The patient was accepted in transfer by Dr. Todd for neurosurgical evaluation here at [facility] in [place]. The patient is remains slightly confused at the time of my visit and states that she does not know why she is here at the hospital. She indicates that she' s been feeling fine and has no problems. She denies any fever, chills, nausea, vomiting, or cough. She indicates that she would prefer for her daughter to provide Serbian interpretation for her in lieu of a professional interpretation service. CBC/BMP: 08/21/17 0603 08/21/17 0603 Significant Findings Laboratory Tests Test 08/18/17 17:22 08/18/17 20:45 08/19/17 03:30 08/19/17 12:25 CSF WBC (Tube 1) 11 /MM3 (0-10) CSF RBC (Tube 1) 43 /MM3 (NONE) CSF Total Protein 13.2 MG/DL (15.0-45.0) White Blood Count 12.3 TH/MM3 (4.0-11.0) 11.1 TH/MM3 (4.0-11.0) Red Blood Count 2.76 MIL/MM3 (4.00-5.30) 2.49 MIL/MM3 (4.00-5.30) Hemoglobin 8.8 GM/DL (11.6-15.3) 8.2 GM/DL (11.6-15.3) Hematocrit 26.8 % (35.0-46.0) 24.1 % (35.0-46.0) Blood Urea Nitrogen 25 MG/DL (7-18) 23 MG/DL (7-18) Creatinine 1.85 MG/DL (0.50-1.00) 1.70 MG/DL (0.50-1.00) Random Glucose 131 MG/DL (74-106) 112 MG/DL (74-106) Estimat Glomerular Filtration Rate 27 ML/MIN (>89) 30 ML/MIN (>89) Neutrophils (%) (Auto) 85.7 % (16.0-70.0) Lymphocytes (%) (Auto) 5.2 % (9.0-44.0) Monocytes (%) (Auto) 8.7 % (0.0-8.0) Neutrophils # (Auto) 9.5 TH/MM3 (1.8-7.7) Lymphocytes # (Auto) 0.6 TH/MM3 (1.0-4.8) Monocytes # (Auto) 1.0 TH/MM3 (0-0.9) Albumin 2.8 GM/DL (3.4-5.0) Alkaline Phosphatase 229 U/L (45-117) Aspartate Amino Transf (AST/SGOT) 157 U/L (15-37) Alanine Aminotransferase (ALT/SGPT) 130 U/L (10-53) Test 08/20/17 04:15 08/21/17 06:03 Red Blood Count 2.43 MIL/MM3 (4.00-5.30) 2.32 MIL/MM3 (4.00-5.30) Hemoglobin 7.8 GM/DL (11.6-15.3) 7.5 GM/DL (11.6-15.3) Hematocrit 23.7 % (35.0-46.0) 22.9 % (35.0-46.0) Neutrophils (%) (Auto) 79.7 % (16.0-70.0) Lymphocytes (%) (Auto) 8.0 % (9.0-44.0) Monocytes (%) (Auto) 10.5 % (0.0-8.0) Lymphocytes # (Auto) 0.7 TH/MM3 (1.0-4.8) Creatinine 1.43 MG/DL (0.50-1.00) 1.02 MG/DL (0.50-1.00) Random Glucose 107 MG/DL (74-106) Albumin 2.8 GM/DL (3.4-5.0) Alkaline Phosphatase 197 U/L (45-117) Aspartate Amino Transf (AST/SGOT) 48 U/L (15-37) Sodium Level 147 MEQ/L (136-145) 149 MEQ/L (136-145) Chloride Level 113 MEQ/L (98-107) 115 MEQ/L (98-107) Estimat Glomerular Filtration Rate 37 ML/MIN (>89) 55 ML/MIN (>89) Calcium Level 8.4 MG/DL (8.5-10.1) Imaging Last Impressions Abdomen X-Ray 08/20/17 Signed Impressions: CONCLUSION: Benign-appearing abdomen. Head CT 08/19/17 Signed Impressions: CONCLUSION: 1. Interval placement of ventricular shunt catheter with tip in the right late ral ventricle and no hemorrhage. 2. Stable high density mass with surrounding edema Chest X-Ray 08/13/17 Signed Impressions: Service Date/Time: July 12:03 - CONCLUSION: 1. Improved aeration at the lung bases, presumably improved atelectasis. 2. Otherwise, no acute abnormality or significant interval change. Frankie Dao MD Renal Ultrasound 08/10/17 Signed Impressions: Service Date/Time: Thursday, August 10, 2017 11:22 - CONCLUSION: 1. Hypoechoic lesion just superior to the right kidney likely represents right adrenal lesion. 2. Bilateral renal cysts. Orlando Tavarez MD Thyroid Ultrasound 07/30/17 Signed Impressions: Service Date/Time: July 08:47 - CONCLUSION: 1. Diffusely heterogeneous multinodular thyroid gland. 2. 1.7 cm solid nodule in the inferior right lobe and 2 mixed nodules in the mid and inferior left pole meet criteria for fine needle aspiration. Frankie Dao MD Bone Biopsy CT 07/28/17 0000 Signed Impressions: Service Date/Time: Friday, July 28, 2017 13:46 - CONCLUSION: 1. Uncomplicated CT guided bone marrow aspirate. 2. Uncomplicated CT guided bone marrow biopsy. Israel Garvin MD Lumbar Puncture Fluoroscopy 07/27/17 0000 Signed Impressions: Service Date/Time: Thursday, July 27, 2017 15:37 - CONCLUSION: Uncomplicated fluoroscopically guided lumbar puncture with pressures as above. Kwasi Wilkins MD Chest CT 07/26/17 0000 Signed Impressions: Service Date/Time: Thursday, July 27, 2017 15:56 - CONCLUSION: 1. Atelectasis at the lung bases but no lung mass or adenopathy. No effusions. 2. Numerous bilateral thyroid nodules measuring up to about 1.5 cm in diameter. See abdomen CT for findings below the diaphragm. Job Barrera MD Abdomen/Pelvis CT 07/26/17 0000 Signed Impressions: Service Date/Time: Thursday, July 27, 2017 15:56 - CONCLUSION: 1. No acute findings abdomen pelvic CT. No definite evidence for metastatic disease. 2.5 cm likely right adrenal adenoma. 2. Mild fatty liver. Job Barrera MD Brain MRI 07/15/17 0000 Signed Impressions: Service Date/Time: Saturday, July 15, 2017 15:42 - CONCLUSION: Left basal ganglia mass with moderate associated vasogenic edema. Mild-moderate hemispheric mass effect. Serpiginous enhancement in the contralateral right mid to high convexity frontal region. Israel Ruelas MD PE at Discharge GENERAL: Obese female in no acute distress. CARDIOVASCULAR: Normal rate and regular rhythm without murmurs, gallops, or rubs. RESPIRATORY: Clear to auscultation. Breath sounds equal bilaterally. No wheezes , rales, or rhonchi. GASTROINTESTINAL: Abdomen soft, non-tender, nondistended. Normal active bowel sounds MUSCULOSKELETAL: Extremities without clubbing, cyanosis, or edema. NEURO: Awake and alert. Right LE 3/5, RUE 1/5. Left sided strength is normal. Pt update on day of discharge Patient is doing okay. Discussed with daughter at bedside. She states she was able to eat today. Family decided on transitioning to comfort care with hospice services at home. Hospital Course 61-year-old female with a history of Lymphoma who is brought to the emergency room at [facility] in [place] for increasing confusion, slurred speech, and right-sided weakness. CT of the head was performed and showed a brain mass with midline shift of 6.8 mm with differential including subacute hemorrhage versus neoplastic process. The patient was accepted in transfer by Dr. Barth for neurosurgical evaluation here at [facility] in [place]. Patient underwent biopsy which revealed B cell lymphoma. Oncology following and she was treated with methotrexate. Transferred back to ICU due to worsening clinical status and worsening CT on 08/17. Patient subsequently had a COMMISSARY PRODUCTION SUPERVISOR shunt placed. Family eventually decided against continuing with aggressive measures and transition to comfort care with hospice at home. Treatment course detailed below: B-cell lymphoma with brain metastasis left basal ganglia mass with vasogenic edema and midline shift status post biopsy. Worsening on 08/17 CT Neurosurgery following. Patient is status post COMMISSARY PRODUCTION SUPERVISOR shunt placement on 08/18/17. Radiation Oncology consulted. Family declined radiation and decided to transition to comfort care only. Patient can continue Decadron to help with swelling. Cancer related encephalopathy Continue supportive care Hypothyroidism, chronic Continue supplements Hypertension Continue baseline treatment Asthma No exacerbation Breathing treatments as needed H/o ischemic CVA with possible seizure activity at the time of the CVA - no seizures since and does not take AEDs Monitor for any seizure activity Continue Keppra PO Continue Dilantin Bipolar disorder No change to baseline treatments Debility Secondary to brain edema Pt Condition on Discharge: Fair Discharge Disposition: Hospice/ Home Discharge Time: > 30 minutes Discharge Instructions DIET: Follow Instructions for: Heart Healthy Diet Speech Therapy-Diet Recommends: Regular Activities you can perform: Weight Bearing as [place] Follow up Referrals: Neurosurgery - 2 Weeks with Miguel Sutton MD Oncology/Hematology - 1 Week with THOMAS HERNANDEZ PCP Follow-up - Today New Medications: Dexamethasone (Dexamethasone) 4 Mg Tab 4 MG PO BID for Inflammation for 30 Days, #60 TAB 0 Refills Hospital Bed - Electric (Hospital Bed - Electric) 1 Ea Ea EA .XX DIRECTED, #1 Levetiracetam (Keppra) 500 Mg Tab 500 MG PO BID for Control Seizures, #60 TAB 0 Refills Phenytoin Extended (Dilantin) 100 Mg Cap 100 MG PO TID for Control Seizures, #90 CAP 0 Refills Wheelchair (Wheelchair) 1 Mis Mis EA .XX DIRECTED, #1 0 Refills Hydrocodone/Acetaminophen (Hydrocodone-Acetamin 10-325 mg) 10 Mg-325 Mg Tablet 1 TAB PO Q4H PRN for PAIN GREATER THAN 5, #30 TAB Sennosides (Senna-Lax) 8.6 Mg Tab 17.2 MG PO Q12H PRN for Moderate constipation, #120 TAB [Chlorhexidine 0.12% Liq] () 15 ML SOLN 15 ML MT BID@08,20 for Infection, #900 ML Continued Medications: Acetaminophen (Tylenol) 325 Mg Tab 500 MG PO Q4H, TAB 0 Refills Acyclovir (Acyclovir) 400 Mg Tab 400 MG PO THURSDAY, , THURSDAY, TAB 0 Refills Albuterol 8.5 GM Inh (Proair Hfa 8.5 GM Inh) 90 Mcg/Act Aer 2 PUFF INH Q4-6H PRN for SHORTNESS OF BREATH, #1 INHALER 0 Refills 108 mcg/actuation Albuterol Sulfate (Proair Hfa) 90 Mcg Hfa.aer.ad Allopurinol (Allopurinol) 100 Mg Tab 100 MG PO BID, #30 TAB 0 Refills Atorvastatin (Atorvastatin) 40 Mg Tab 40 MG PO HS for Cholesterol Management, #30 TAB 0 Refills Citalopram (Celexa) 20 Mg Tab 20 MG PO DAILY for Control Depression, #30 TAB 0 Refills Ferrous Sulfate ER (Ferrous Sulfate ER) 140 Mg (45 Mg Iron) Tab 65 MG PO DAILY for Nutritional Supplement, #30 TAB 0 Refills Folic Acid (Folic Acid) 0.4 Mg Tab 1 MG PO HS for Nutritional Supplement, TAB 0 Refills Levothyroxine (Levothyroxine) 150 Mcg Tab 150 MCG PO DAILY for Thyroid, #30 TAB 0 Refills Multiple Vitamins W/ Minerals (Centrum) 1 Chew 1 TAB CHEW DAILY for Nutritional Supplement, TAB 0 Refills Omeprazole (Omeprazole) 20 Mg Tab 20 MG PO DAILY, #30 TAB 0 Refills Quetiapine (Quetiapine) 25 Mg Tab 25 MG PO HS, #30 TAB 0 Refills Akhil Calderón MD August 21, 2017 14:31
[2017-08-21] MEDS ORDERED: DILA100C PO (15:04)
[2017-08-21] MEDS ORDERED: LEVE500 PO (15:04)
[2017-08-21] MEDS ORDERED: DEXA4TAB PO (15:04)
[2017-08-21] MEDS ORDERED: HYDR-3583 PO (15:04)
--- NOTE | 2017-08-21 15:08 | HHI.HCPN ---
Reason for visit a. To assist with evaluation and management of symptoms including: encephalopathy, pain b. To assist medical decision maker(s) with: better understanding of current medical conditions; weighing benefits/burdens of medical treatment options; making medical treatment decisions. . Subjective/Interval History Follow-up visit for symptom management of pain and encephalopathy as well as clarification of medical treatment goals. Patient presents sitting upright in recliner in [facility], room 1330. Daughter (Angela ) is also present. Patient is lethargic, arouses to verbal stimuli. Does not appear to be experiencing dyspnea or pain. Oxygen saturation stable in the high 90's on 2L O2 via nasal cannula. Orders for PRN Sulphur as well as IV Morphine for pain; 24 hour PRN requirements = morphine 4 mg IV 1. A KUB yesterday 08/20/17 2/2 secondary left upper quadrant abdominal pain revealed benign appearing abdomen. CT brain on 08/19/2017 showing interval placement of ventricular shunt catheter with tip in the right lateral ventricle and no hemorrhage; stable high density mass with surrounding edema. Incision on left anterior scalp without redness or drainage. Recent lab work from 08/21/2017 reviewed: = WBC: 6.0, hemoglobin 7.5, hematocrit 22.9, platelets 321 = Sodium: 149, potassium 4.3, chloride 115, carbon dioxide 27.4, glucose 104, calcium 8.4 = BUN: 14, creatinine 1.02, GFR 55 Patient currently does not have insight or judgment related to her medical conditions; she is not expected to regain capacity for healthcare decision- making. Family has verbalized comfort focus goals and would like to bring the patient home with hospice services. A referral was made to [facility] in [place] yesterday 08/20/2017; tentative plan to discharge patient home after the patient has enrolled with hospice services. Patient will need nonemergent transportation arranged. Discussed with daughter (Angela), RN ( Nereida), caser up (Jerome Ulrich) and Dr. Calderón. . Objective Vital Signs Date Time Temp Pulse Resp B/P (MAP) Pulse Ox O2 Delivery O2 Flow Rate FiO2 08/21/17 12:00 66 08/21/17 12:00 98.2 66 25 160/82 (108) 100 08/21/17 10:00 63 08/21/17 09:44 20 08/21/17 08:52 100 Nasal Cannula 2.00 08/21/17 08:00 98.4 55 17 160/80 (106) 97 08/21/17 08:00 55 08/21/17 06:00 57 08/21/17 04:00 98.4 63 14 144/75 (98) 97 08/21/17 04:00 63 08/21/17 02:00 62 08/21/17 00:00 56 08/21/17 00:00 98.3 56 14 133/58 (83) 97 08/20/17 22:00 72 08/20/17 20:37 95 Nasal Cannula 2.00 08/20/17 20:00 98.3 54 16 161/74 (103) 96 08/20/17 20:00 54 08/20/17 18:00 52 08/20/17 16:00 98.4 64 22 128/61 (83) 96 08/20/17 16:00 64 Intake & Output 08/21/17 08/21/17 07:00 19:00 Intake Total 2220 ml Output Total 2150 ml Balance 70 ml Intake Oral 120 ml IV Total 2100 ml Output Urine Total 2150 ml # Bowel Movements 0 Physical Exam CONSTITUTIONAL/GENERAL: This is an adequately nourished patient, in no apparent distress. TUBES/LINES/DRAINS: SKIN: No jaundice, rashes, or lesions. Ecchymoses on upper extremities. Incision line on scalp is clean with no active bleeding.. Skin temperature appropriate. Not diaphoretic. HEAD: Atraumatic. Normocephalic. EYES: Pupils round, reactive. No scleral icterus. No injection or drainage. Fundi not examined. ENT: Hearing grossly normal. Nose without bleeding or purulent drainage. NECK: Trachea midline. Supple, nontender. No palpable thyroid enlargement or nodularity. CARDIOVASCULAR: Regular rate and rhythm without murmurs, gallops, or rubs. No JVD. Peripheral pulses symmetric. RESPIRATORY/CHEST: Symmetric, unlabored respirations. Clear to auscultation. Breath sounds equal bilaterally. No wheezes, rales, or rhonchi. GASTROINTESTINAL: Abdomen soft, non-tender, nondistended. No hepato-splenomegaly , or palpable masses. No guarding. Bowel sounds present. GENITOURINARY: Without palpable bladder distension. Toro catheter in place. MUSCULOSKELETAL: Extremities without clubbing, cyanosis, or edema. . No mottling or clubbing. LYMPHATICS: No palpable cervical or supraclavicular adenopathy. NEUROLOGICAL: Oriented to self only. Right-sided facial droop. Right-sided hemiparesis. PSYCHIATRIC: No obvious anxiety/depression. No apparent hallucinations or other psychotic thought process. . Diagnostic Tests Laboratory Laboratory Tests Test 08/18/17 17:22 08/18/17 20:45 08/19/17 03:30 08/19/17 12:25 CSF Volume (Tube 1) 10.0 ML CSF Supernatant Color (tube 1) CLEAR (CLEAR) CSF Gross Blood (Tube 1) 0 (0) CSF WBC (Tube 1) 11 /MM3 (0-10) CSF RBC (Tube 1) 43 /MM3 (NONE) CSF Neutrophils 50 % CSF Lymphocytes 25 % CSF Monocytes 25 % CSF Differential Comment CSF Glucose 68 MG/DL (40-80) CSF Total Protein 13.2 MG/DL (15.0-45.0) White Blood Count 12.3 TH/MM3 (4.0-11.0) 11.1 TH/MM3 (4.0-11.0) Red Blood Count 2.76 MIL/MM3 (4.00-5.30) 2.49 MIL/MM3 (4.00-5.30) Hemoglobin 8.8 GM/DL (11.6-15.3) 8.2 GM/DL (11.6-15.3) Hematocrit 26.8 % (35.0-46.0) 24.1 % (35.0-46.0) Mean Corpuscular Volume 97.2 FL (80.0-100.0) 96.9 FL (80.0-100.0) Mean Corpuscular Hemoglobin 32.1 PG (27.0-34.0) 32.9 PG (27.0-34.0) Mean Corpuscular Hemoglobin Concent 33.0 % (32.0-36.0) 33.9 % (32.0-36.0) Red Cell Distribution Width 14.3 % (11.6-17.2) 14.8 % (11.6-17.2) Platelet Count 297 TH/MM3 (150-450) 301 TH/MM3 (150-450) Mean Platelet Volume 7.4 FL (7.0-11.0) 7.2 FL (7.0-11.0) Blood Urea Nitrogen 25 MG/DL (7-18) 23 MG/DL (7-18) Creatinine 1.85 MG/DL (0.50-1.00) 1.70 MG/DL (0.50-1.00) Random Glucose 131 MG/DL (74-106) 112 MG/DL (74-106) Calcium Level 9.0 MG/DL (8.5-10.1) 8.6 MG/DL (8.5-10.1) Sodium Level 143 MEQ/L (136-145) 144 MEQ/L (136-145) Potassium Level 3.8 MEQ/L (3.5-5.1) 4.5 MEQ/L (3.5-5.1) Chloride Level 105 MEQ/L (98-107) 107 MEQ/L (98-107) Carbon Dioxide Level 27.6 MEQ/L (21.0-32.0) 29.5 MEQ/L (21.0-32.0) Anion Gap 10 MEQ/L (5-15) 8 MEQ/L (5-15) Estimat Glomerular Filtration Rate 27 ML/MIN (>89) 30 ML/MIN (>89) Neutrophils (%) (Auto) 85.7 % (16.0-70.0) Lymphocytes (%) (Auto) 5.2 % (9.0-44.0) Monocytes (%) (Auto) 8.7 % (0.0-8.0) Eosinophils (%) (Auto) 0.1 % (0.0-4.0) Basophils (%) (Auto) 0.3 % (0.0-2.0) Neutrophils # (Auto) 9.5 TH/MM3 (1.8-7.7) Lymphocytes # (Auto) 0.6 TH/MM3 (1.0-4.8) Monocytes # (Auto) 1.0 TH/MM3 (0-0.9) Eosinophils # (Auto) 0.0 TH/MM3 (0-0.4) Basophils # (Auto) 0.0 TH/MM3 (0-0.2) CBC Comment DIFF FINAL Differential Comment Total Protein 6.6 GM/DL (6.4-8.2) Albumin 2.8 GM/DL (3.4-5.0) Alkaline Phosphatase 229 U/L (45-117) Aspartate Amino Transf (AST/SGOT) 157 U/L (15-37) Alanine Aminotransferase (ALT/SGPT) 130 U/L (10-53) Total Bilirubin 0.2 MG/DL (0.2-1.0) Methotrexate Level 0.05 UMOL/L (<0.90) Test 08/20/17 04:15 08/21/17 06:03 White Blood Count 8.2 TH/MM3 (4.0-11.0) 6.0 TH/MM3 (4.0-11.0) Red Blood Count 2.43 MIL/MM3 (4.00-5.30) 2.32 MIL/MM3 (4.00-5.30) Hemoglobin 7.8 GM/DL (11.6-15.3) 7.5 GM/DL (11.6-15.3) Hematocrit 23.7 % (35.0-46.0) 22.9 % (35.0-46.0) Mean Corpuscular Volume 97.5 FL (80.0-100.0) 98.9 FL (80.0-100.0) Mean Corpuscular Hemoglobin 32.2 PG (27.0-34.0) 32.5 PG (27.0-34.0) Mean Corpuscular Hemoglobin Concent 33.0 % (32.0-36.0) 32.9 % (32.0-36.0) Red Cell Distribution Width 14.5 % (11.6-17.2) 14.7 % (11.6-17.2) Platelet Count 301 TH/MM3 (150-450) 321 TH/MM3 (150-450) Mean Platelet Volume 7.1 FL (7.0-11.0) 7.3 FL (7.0-11.0) Neutrophils (%) (Auto) 79.7 % (16.0-70.0) Lymphocytes (%) (Auto) 8.0 % (9.0-44.0) Monocytes (%) (Auto) 10.5 % (0.0-8.0) Eosinophils (%) (Auto) 1.2 % (0.0-4.0) Basophils (%) (Auto) 0.6 % (0.0-2.0) Neutrophils # (Auto) 6.5 TH/MM3 (1.8-7.7) Lymphocytes # (Auto) 0.7 TH/MM3 (1.0-4.8) Monocytes # (Auto) 0.9 TH/MM3 (0-0.9) Eosinophils # (Auto) 0.1 TH/MM3 (0-0.4) Basophils # (Auto) 0.0 TH/MM3 (0-0.2) CBC Comment DIFF FINAL Differential Comment Blood Urea Nitrogen 18 MG/DL (7-18) 14 MG/DL (7-18) Creatinine 1.43 MG/DL (0.50-1.00) 1.02 MG/DL (0.50-1.00) Random Glucose 107 MG/DL (74-106) 104 MG/DL (74-106) Total Protein 6.6 GM/DL (6.4-8.2) Albumin 2.8 GM/DL (3.4-5.0) Calcium Level 8.8 MG/DL (8.5-10.1) 8.4 MG/DL (8.5-10.1) Alkaline Phosphatase 197 U/L (45-117) Aspartate Amino Transf (AST/SGOT) 48 U/L (15-37) Alanine Aminotransferase (ALT/SGPT) 48 U/L (10-53) Total Bilirubin 0.2 MG/DL (0.2-1.0) Sodium Level 147 MEQ/L (136-145) 149 MEQ/L (136-145) Potassium Level 4.1 MEQ/L (3.5-5.1) 4.3 MEQ/L (3.5-5.1) Chloride Level 113 MEQ/L (98-107) 115 MEQ/L (98-107) Carbon Dioxide Level 26.7 MEQ/L (21.0-32.0) 27.4 MEQ/L (21.0-32.0) Anion Gap 7 MEQ/L (5-15) 7 MEQ/L (5-15) Estimat Glomerular Filtration Rate 37 ML/MIN (>89) 55 ML/MIN (>89) Methotrexate Level 0.07 UMOL/L (<0.90) Result Diagram: 08/21/17 0603 08/21/17 0603 Microbiology Microbiology Date/Time Source Procedure Growth Status 08/18/17 17:22 Cerebral Spinal Fluid Shunt Fluid Gram Stain - Final Complete 08/18/17 17:22 Cerebral Spinal Fluid Shunt Fluid CSF Culture - Final NO GROWTH IN 72 HRS.--AEROBICALLY OR ... Complete Procedures 07/16/17: Endotracheal intubation 07/17/17: Extubation 08/18/2017: Ventriculoperitoneal shunt placement. . Assessment and Plan Disease Oriented Problem List: (1) Brain mass (2) Renal insufficiency (3) B-cell lymphoma (4) Dementia without behavioral disturbance (5) Hypertension (6) Seizure (7) Hyperlipidemia Symptom Scale: (1) Pain (2) Encephalopathy Pertinent Non-Medical Issues Psychosocial: Patient was born and raised in [place] and later lived [place]. She lives in [place] with her . She has been with her for approximately 35 years, and they got 3 years ago. She has 5 living children. Highest level of kids education is ninth grade; patient supported by [employer]. She has a known psychiatric history including bipolar disorder, depression and anxiety. Patient has had 2 previous psychiatric hospitalizations and 2 previous suicide attempts. Apparently she had a child who was murdered in the late which is when patient began having psychiatric issues. 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 Spiritual: [employer] Legal: Per [place] statutes, in the absence of written advanced directives healthcare proxy decision making falls to the patient's spouse. However, daughter (Angela) states she is designated as the healthcare surrogate decision maker. I have asked her to bring copies of these documents to be placed in the patient's paper chart and scanned into the patient's EMR. Ethical issues impacting care: No known ethical issues impacting care. . Important Contacts Angela Toledo, daughter: [phone] . Code Status: Full Code Plan * FULL CODE * Decision-making: Patient currently does not have insight or judgment related to her medical conditions. She is not expected to regain capacity for healthcare decision-making. Per [place] statutes, in the absence of written advanced directives healthcare proxy decision making falls to the patient's spouse. However, daughter (Angela) states she is designated as the healthcare surrogate decision maker. I have asked her to bring copies of these documents to be placed in the patient's paper chart and scanned into the patient's EMR. * Discussed current medical treatment goals and discharge plan with RN (Nereida) , caser up (Jerome Ulrich) and Dr. Calderón. * Symptom management: = Encephalopathy: Patient with a known history of CVA and dementia. Recently diagnosed with diffuse B-cell lymphoma. Patient was started on dexamethasone 4 mg IV every 6 hours. MRI of the brain on 07/15/17 revealed a left basal ganglia mass with moderate associated vasogenic edema; mild-moderate hemispheric mass-effect. 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 = Pain: Multifactoral. Patient was recently diagnosed with B cell lymphoma s /p ventriculoperitoneal shunt placement 2/2 obstructive hydrocephaly. PRN Morphine and Sulphur are available every 2 hours. 24 hour PRN Requirements equal IV morphine 4 mg 1, IV morphine 2 mg 1. Palliative care will monitor PRN requirements and make recommendations as appropriate. * Patient currently does not have insight or judgment related to her medical conditions; she is not expected to regain capacity for healthcare decision- making. Family has verbalized comfort focus goals and would like to bring the patient home with hospice services. A referral was made to [facility] in [place] yesterday 08/20/2017; tentative plan to discharge patient home after the patient has enrolled with hospice services. CM arranging nonemergent transportation for patient. Discussed with daughter (Angela) * Palliative care will continue to follow this patient throughout her hospitalization to establish trust, assist with symptom management and clarification of medical treatment goals. . . Time Spent Total Floor Time (mins): 45 (Time to include review of medical record, patient examination and collaboration with family as well as medical team.) Face to Face Time (mins): 15 Attestation To help prompt me to consider important information that might be impacting today's encounter and assessment, information from prior notes written by myself or my colleagues may have been "brought forward" into today's note. My signature on this note, however, is an attestation that I personally performed the exam, history, and/or decision-making noted today, and, unless otherwise indicated, the interactions with patient, family, and staff as well as the review of records all occurred today. I also attest that the listed assessment and stated plan reflect my best clinical judgment today based on the combination of historical information, prior notes, and today's exam/ interactions. When time spent is documented, it refers only to time spent today by the signer, or if indicated, combined time spent today by collaborating physician/nurse practitioner. . Gena Roach August 21, 2017 15:08
== END 2017-08-21 16:49 | disposition hospice, home (50) | DRG 820 ==
LOC: N04A 21:20 → N03B 07-16 13:10 → N04A 07-24 14:38 → HIMW 07-25 15:00 → N03A 07-27 09:41 → N06B 07-30 18:28 → HCIN 07-31 23:43 → N03B 08-17 21:01
PROVIDERS: ADMIT Family Medicine; ATTEND Family Medicine
PROC: 5A1945Z Respiratory Ventilation, 24-96 Consecutive Hours (ICD-10-PCS; 2017-07-16)
PROC: 0BH17EZ Insertion of Endotracheal Airway into Trachea, Via Natural or Artificial Opening (ICD-10-PCS; 2017-07-16)
PROC: 0CJS8ZZ Inspection of Larynx, Via Natural or Artificial Opening Endoscopic (ICD-10-PCS; 2017-07-16)
PROC: 05HY33Z Insertion of Infusion Device into Upper Vein, Percutaneous Approach (ICD-10-PCS; 2017-07-16)
PROC: 00B Central Nervous System and Cranial Nerves, Excision (ICD-10-PCS; principal; 2017-07-17 08:26)
PROC: 009U3ZX Drainage of Spinal Canal, Percutaneous Approach, Diagnostic (ICD-10-PCS; 2017-07-27)
PROC: 07DR3ZX Extraction of Iliac Bone Marrow, Percutaneous Approach, Diagnostic (ICD-10-PCS; 2017-07-28)
PROC: 3E0330M Introduction of Antineoplastic, Monoclonal Antibody, into Peripheral Vein, Percutaneous Approach (ICD-10-PCS; 2017-08-05)
PROC: 3E03305 Introduction of Other Antineoplastic into Peripheral Vein, Percutaneous Approach (ICD-10-PCS; 2017-08-07)
PROC: 00160J6 Bypass Cerebral Ventricle to Peritoneal Cavity with Synthetic Substitute, Open Approach (ICD-10-PCS; 2017-08-18)
DX: C83.39 Diffuse large B-cell lymphoma, extranodal and solid organ sites (principal); J96.00 Acute respiratory failure, unspecified whether with hypoxia or hypercapnia; G93.6 Cerebral edema; N17.0 Acute kidney failure with tubular necrosis; G91.1 Obstructive hydrocephalus; C79.31 Secondary malignant neoplasm of brain; E87.2 Acidosis; R47.01 Aphasia; I69.351 Hemiplegia and hemiparesis following cerebral infarction affecting right dominant side; J98.11 Atelectasis; G13.1 Other systemic atrophy primarily affecting central nervous system in neoplastic disease; I10 Essential (primary) hypertension; E03.9 Hypothyroidism, unspecified; M10.9 Gout, unspecified; K21.9 Gastro-esophageal reflux disease without esophagitis; F31.9 Bipolar disorder, unspecified; M81.0 Age-related osteoporosis without current pathological fracture; G47.33 Obstructive sleep apnea (adult) (pediatric); E78.5 Hyperlipidemia, unspecified; J44.9 Chronic obstructive pulmonary disease, unspecified; K76.0 Fatty (change of) liver, not elsewhere classified; E04.2 Nontoxic multinodular goiter; E27.9 Disorder of adrenal gland, unspecified; G89.29 Other chronic pain; D64.9 Anemia, unspecified; K59.00 Constipation, unspecified; R00.1 Bradycardia, unspecified; F03.90 Unspecified dementia, unspecified severity, without behavioral disturbance, psychotic disturbance, mood disturbance, and anxiety; I45.4 Nonspecific intraventricular block; Z51.5 Encounter for palliative care; R29.810 Facial weakness; Z91.5 Personal history of self-harm; Z87.442 Personal history of urinary calculi; Z87.891 Personal history of nicotine dependence; Z92.21 Personal history of antineoplastic chemotherapy; Z82.49 Family history of ischemic heart disease and other diseases of the circulatory system; Z84.1 Family history of disorders of kidney and ureter; Z82.5 Family history of asthma and other chronic lower respiratory diseases; T45.1X5A Adverse effect of antineoplastic and immunosuppressive drugs, initial encounter; Z82.0 Family history of epilepsy and other diseases of the nervous system
CPT/HCPCS: 31500; 36569; 36600; 38222; 62270; 70450; 70553; 71045; 71260; 74018; 74177; 76536; 76775; 76937; 77003; 77012; 80048; 80053; 80074; 80185; 80299; 81001; 81003; 82438; 82550; 82570; 82805; 82945; 82948; 83605; 83615; 83735; 83930; 84100; 84157; 84295; 84300; 84484; 84550; 85025; 85027; 85097; 85610; 85730; 86317; 86703; 86704; 87015; 87070; 87205; 87340; 88108; 88305; 88307; 88311; 88313; 88331; 88341; 88342; 89051; 93005; 93306; 94002; 94003; 94150; 94640; 94664; 94667; 94668; 95819; 99152; 99153; A9579; C1830; C9113; J0131; J0461; J0640; J0690; J1100; J1165; J1200; J1265; J1580; J1626; J1642; J1940; J1953; J2150; J2175; J2250; J2270; J2310; J2370; J2405; J2710; J3010; J3480; J7030; J7040; J7050; J7070; J7120; J7611; J7613; J8540; J9250; J9310; Q2009; Q9963; Q9967